=== PATIENT | female | born 1990 | race Caucasian/White ===

== ENCOUNTER → 2016-10-29 | Outpatient (CLI) | payer MEDICAID ==
[~2016-10-29] MED LIST: ACHD5005 PO; BIRTH CONTROL PO; CEFD300C3 PO; CEPH250T PO; CEPH500C PO; CPR500T PO; FRS325T PO; HYDR-3454 PO; HYDR-3583 PO; HYDR-3720 PO; HYDR1CAP2 PO; HYDR1TAB8 OP; HYDR25CA92 GT; IBP600T1 PO; IBP800T PO; IBUP-1780 PO; KETO-22 PO; LEVO500T69 PO; MEDR150V4 INJ; NITR-65 PO; NITR100C PO; ONDAN4ODT PO; ONDN4T PO; OXYC-12 PO; PHEN100T26 PO; PREN1TAB14 PO; PREN1TAB39 PO; PRM25T; PRM25T PO; PROM25SU10 RC; TMSL.4C PO
--- NOTE | 2016-10-29 16:02 | Diagnostic Imaging Report ---
PROCEDURE: US Thyroid. TECHNIQUE: Multiple real-time grayscale images were obtained of the thyroid in various projections. INDICATION: Abnormal thyroid labs. FINDINGS: The right thyroid lobe measured 4.6 x 1.2 x 1.5 cm. It contains a solid hypoechoic vascularized nodule at the junction of its nyg-je-dwvht one-thirds measuring 8 mm long axis. A tiny hypoechoic nodule in its lower pole measured 4 mm. The left lobe measured 5.5 x 1.0 x 1.3 cm and it appeared nonfocal. Color Doppler blood flow to both lobes and the isthmus is unremarkable. IMPRESSION: Right lobe nodule at its middle one-third measuring 8 mm long axis. It is solid, vascularized, and hypoechoic. It is not particularly well defined and would suggest followup exam in six months' time to exclude enlargement. An additional benign-appearing nodule in its lower pole at 4 mm noted with negative left lobe. Dictated by: Dictated on workstation # [id number]
== END ==
LOC: RAD 14:11
PROVIDERS: ATTEND Family Medicine
DX: E04.1 Nontoxic single thyroid nodule (principal); R94.6 Abnormal results of thyroid function studies
CPT/HCPCS: 76536

== ENCOUNTER → 2018-03-06 | Outpatient (CLI) | payer MEDICAID ==
--- NOTE | 2018-03-06 09:21 | Diagnostic Imaging Report ---
PROCEDURE: US Thyroid. TECHNIQUE: Multiple real-time grayscale images were obtained of the thyroid in various projections. INDICATION: Thyroid nodules, followup. Comparison is made with prior thyroid ultrasound from 10/29/2016. FINDINGS: Right lobe of thyroid measures 4.9 x 1.6 x 1.4 cm and the left lobe measures 5.2 x 1.1 x 1.5 cm. Left lobe shows normal homogeneous echotexture without evidence of a discrete mass. There are 2 circumscribed hyperechoic nodules in the right lobe of the thyroid. Nodule in the midportion measures approximately 7 mm x 8 mm x 4 mm, stable. A nodule in the inferior aspect of the right lobe measures 4 mm x 4 mm x 3 mm, stable. No new mass is seen. IMPRESSION: Stable subcentimeter nodules right lobe of the thyroid when compared with examination from 10/29/2016. Dictated by: Dictated on workstation # [id number]
== END ==
LOC: RAD 08:21
PROVIDERS: ATTEND Nurse Practitioner Family
DX: E04.2 Nontoxic multinodular goiter (principal)
CPT/HCPCS: 76536

== ENCOUNTER 2019-03-15 15:14 | Emergency (ER) | payer MEDICAID ==
[~2019-03-15] VITALS: Ht 175 cm; Wt 73.0 kg
--- NOTE | 2019-03-15 15:48 | Diagnostic Imaging Report ---
INDICATION: Left wrist injury. COMPARISON: None. EXAMINATION: Four views of the left wrist were obtained. FINDINGS: No fracture or dislocation. Articular surfaces are normal. No foreign body is seen. IMPRESSION: Negative left wrist. Dictated by: Dictated on workstation # [id number]
--- NOTE | 2019-03-15 15:49 | ED Upper Extremity ---
General Chief Complaint: Upper Extremity Stated Complaint: FALL/L WRIST INJ Nursing Triage Note: PT STATES FELL BACKWARDS AND FELL ON L WRIST, Nursing Sepsis Screen: No Definite Risk Source: patient Exam Limitations: no limitations History of Present Illness Date Seen by Provider: Mar 15, 2019 Time Seen by Provider: 15:48 Initial Comments Fell backwards on the left wrist Onset: just prior to arrival Severity: moderate Pain/Injury Location: left wrist Method of Injury: fell Modifying Factors: Worse With Movement Allergies and Home Medications Allergies Coded Allergies: No Known Drug Allergies (Unverified , 10/27/12) Home Medications Cefdinir 300 Mg Capsule, 300 MG PO BID Prescribed by: ANALIA XAVIER on 05/10/16 1125 Ibuprofen 800 Mg Tablet, 800 MG PO Q8H PRN for PAIN Prescribed by: ANALIA XAVIER on 05/10/16 1126 Medroxyprogesterone Acetate 150 Mg/1 Ml Vial, 150 MG INJ EVERY 3 MONTHS, (Re ported) Patient Home Medication List Home Medication List Reviewed: Yes Review of Systems Constitutional: see HPI EENTM: see HPI Respiratory: no symptoms reported Cardiovascular: no symptoms reported Genitourinary: no symptoms reported Musculoskeletal: see HPI Skin: no symptoms reported Psychiatric/Neurological: No Symptoms Reported Past Qsnrqia-Qlrgec-Bskuvc Hx Patient Social History Alcohol Use: Denies Use Recreational Drug Use: No Smoking Status: Current Everyday Smoker Type Used: Cigarettes Recent Foreign Travel: No Contact w/Someone Who Travel: No Recent Infectious Disease Expo: No Recent Hopitalizations: No Physical Abuse: No Sexual Abuse: No Seasonal Allergies Seasonal Allergies: No Past Medical History Surgeries: Yes (KIDNEY STONES) Adenoidectomy, Section, Gallbladder, Tonsillectomy Respiratory: No Cardiac: No Neurological: No : No Last Menstrual Period: Mar 15, 2019 Reproductive Disorders: No Sexually Transmitted Disease: No Gastrointestinal: No Musculoskeletal: No Endocrine: No Cancer: No Psychosocial: No Integumentary: No Blood Disorders: No Adverse Reaction/Blood Tranf: No Family Medical History Blood coagulation disorder 19 MOTHER Diabetes mellitus 19 MOTHER FH: liver cancer GRANDFATHER Physical Exam Vital Signs Vital Signs - First Documented 03/15/19 15:19 Temp 36.6 Pulse 69 Resp 18 B/P (MAP) 70/40 (50) Pulse Ox 99 Capillary Refill : Less Than 3 Seconds Height, Weight, BMI Height: 5'9.00" Weight: 157lbs. 0.0oz. [id number]; 23.00 BMI Method:Stated General Appearance: WD/WN, no apparent distress Neck: non-tender, full range of motion Respiratory: no respiratory distress, no accessory muscle use Shoulder: normal inspection, non-tender Elbow/Forearm: normal inspection, non-tender, Left Wrist: Yes swelling (over the dorsal aspect of the wrist radial side) Hand: normal inspection, non-tender Neurologic/Psychiatric: alert, normal mood/affect, oriented x 3 Skin: normal color, warm/dry Progress/Results/Core Measures Results/Orders Vital Signs/I&O 03/15/19 15:19 Temp 36.6 Pulse 69 Resp 18 B/P (MAP) 70/40 (50) Pulse Ox 99 Blood Pressure Mean: 50 POS Departure Impression Primary Impression: Wrist sprain Qualified Codes: S63.502A - Unspecified sprain of left wrist, initial encounter Disposition: 01 HOME, SELF-CARE Condition: Stable Departure-Patient Inst. Decision time for Depature: 16:04 Referrals: ANALIA XAVIER DO (PCP/Family) Primary Care Physician Patient Instructions: Wrist Sprain (DC) Add. Discharge Instructions: 1. Your x-rays are normal meaning we do not see a fracture but given the swelling that is visualized here there may certainly be a fracture that we are just not seeing. The pain doesn't improve by the end of the week follow-up with Dr. XAVIER towards the end of the week to discuss further imaging which may include MRI. All discharge instructions reviewed with patient and/or family. Voiced understanding. Scripts Hydrocodone/Acetaminophen ([place] 5-325 Tablet) 1 Each Tablet 1 TAB PO Q6H for Pain MDD 10 TABS for 7 Days, #10 TAB Prov: ASHTYN JOYNER PATRON ATTENDANT 03/15/19 ASHTYN JOYNER PATRON ATTENDANT Mar 15, 2019 15:48 POS
[2019-03-15] MEDS ORDERED: HYDR-4226 PO (16:05)
[2019-03-15 16:15] VITALS: BP 70/40
[2019-03-15] MEDS ORDERED: RX-HYDROCODONE/APAP 5/325 MG #4 TAB PK PO PRN (16:15)
== END 2019-03-15 16:14 | disposition home or self-care (01) ==
LOC: EDUNIT# 15:14 → ER 15:15
DX: S63.502A Unspecified sprain of left wrist, initial encounter (principal); F17.210 Nicotine dependence, cigarettes, uncomplicated; Z90.89 Acquired absence of other organs; Z80.0 Family history of malignant neoplasm of digestive organs; W19.XXXA Unspecified fall, initial encounter
CPT/HCPCS: 73110

== ENCOUNTER → 2019-11-25 | Outpatient (CLI) | payer MEDICAID ==
[~2019-11-25] MED LIST changes: +HYDR-4226 PO
--- NOTE | 2019-11-25 16:08 | Diagnostic Imaging Report ---
INDICATION: Bilateral breast lumps. COMPARISON: Correlation is made with diagnostic mammogram of earlier the same day. EXAMINATION: Sonographic interrogation of the areas of palpable abnormality in the upper-outer breasts, bilaterally, was performed. There is a small cyst at the 9:30 location of the right breast, 5 cm from the nipple, measuring 8 mm x 4 mm x 4 mm. This could potentially account for the palpable abnormality on the right. No abnormality on the left is identified. No solid or cystic mass is seen. IMPRESSION: Simple cyst right breast, perhaps accounting for palpable abnormality. No abnormality of the left breast is identified. Continued close clinical and self breast exam is recommended to confirm stability of the areas of palpable abnormality. ACR BI-RADS Category 2: Benign findings. Result letter will be mailed to the patient. Note: At least 10% of breast cancer is not imaged by mammography. Dictated by: Dictated on workstation # [id number]
--- NOTE | 2019-11-25 17:38 | Diagnostic Imaging Report ---
INDICATION: Bilateral palpable lumps. COMPARISON: No prior study is available for comparison. EXAMINATION: 2D and 3D bilateral diagnostic mammography was performed with CAD. FINDINGS: Both breasts are heterogeneously dense, limiting sensitivity of mammography. BB markers were placed at the areas of palpable abnormality in the upper outer aspects of both breasts. No underlying mass is detected. No malignant appearing microcalcifications are seen. The axillae are unremarkable. IMPRESSION: No mammographic features suspicious for malignancy. Even so, directed sonographic interrogation of the areas of palpable abnormality is recommended and will be performed today. ACR BI-RADS Category 0: Incomplete. (Needs additional imaging evaluation). Result letter will be mailed to the patient. Note: At least 10% of breast cancer is not imaged by mammography. Dictated by: Dictated on workstation # [id number]
== END ==
LOC: RAD 14:02
PROVIDERS: ATTEND Nurse Practitioner Family
DX: N63.20 Unspecified lump in the left breast, unspecified quadrant (principal); N63.10 Unspecified lump in the right breast, unspecified quadrant
CPT/HCPCS: 77062; 77066

== ENCOUNTER 2019-12-11 21:05 | Emergency (ER) | payer MEDICAID ==
[~2019-12-11] VITALS: Ht 175 cm; Wt 73.0 kg
[2019-12-11] MEDS ORDERED: LACTATED RINGERS 1,000 ML IV ONE (21:27)
[2019-12-11] MEDS ORDERED: PROMETHAZINE INJ 25 MG/ML (PHENERGAN) AMP IVP ONE (21:30)
[2019-12-11 21:40] LABS: BILIRUBIN,URINE NEGATIVE (NEGATIVE); CLARITY,URINE CLEAR; COLOR,URINE YELLOW; GLUCOSE, URINE (UA) NEGATIVE (NEGATIVE); KETONES,URINE 2+ (NEGATIVE); LEUKOCYTE ESTERASE ,URINE 1+ (NEGATIVE); NITRITE,URINE POSITIVE (NEGATIVE); PH,URINE 6.5 (5-9); PROTEIN,URINE 1+ (NEGATIVE)
[2019-12-11 21:40] LABS: BASOPHILS % (AUTO) 0 % (0-10); EOSINOPHILS % (AUTO) 0 % (0-10); HEMATOCRIT 43 % (35-52); HEMOGLOBIN 14.9 G/DL (11.5-16.0); LYMPHOCYTES % (AUTO) 15 % (12-44); MEAN CORPUSCULAR HEMOGLOBIN 31 PG (25-34); MEAN CORPUSCULAR HGB CONC 35 G/DL (32-36); MEAN CORPUSCULAR VOLUME 90 FL (80-99); MEAN PLATELET VOLUME 11.3 FL (7.4-10.4); MONOCYTES % (AUTO) 7 % (0-12); NEUTROPHILS # (AUTO) 10.6 X 10^3 (1.8-7.8); NEUTROPHILS % (AUTO) 78 % (42-75); PLATELET COUNT 230 10^3/uL (130-400); RED CELL DISTRIBUTION WIDTH 13.9 % (10.0-14.5); WHITE BLOOD COUNT 13.6 10^3/uL (4.3-11.0)
[2019-12-11 21:48] LABS: WBC,URINE 25-50 /HPF
[2019-12-11 21:49] LABS: BACTERIA,URINE MODERATE /HPF
[2019-12-11 21:54] LABS: ALANINE AMINOTRANSFERASE 31 U/L (0-55); ALBUMIN 4.7 GM/DL (3.2-4.5); ALKALINE PHOSPHATASE 58 U/L (40-136); BILIRUBIN,TOTAL 0.8 MG/DL (0.1-1.0); BUN/CREATININE RATIO 15; CALCIUM 10.2 MG/DL (8.5-10.1); CARBON DIOXIDE 19 MMOL/L (21-32); CHLORIDE 106 MMOL/L (98-107); CREATININE SERUM 0.66 MG/DL (0.60-1.30); GFR ESTIMATED > 60; GLUCOSE 106 MG/DL (70-105); MAGNESIUM 2.6 MG/DL (1.6-2.4); SODIUM 139 MMOL/L (135-145); TOTAL PROTEIN 7.9 GM/DL (6.4-8.2)
--- OUTSIDE RECORDS SUMMARY | 2019-12-11 21:55 | XMS REPORT | CCD ---
Author Author Brenda Talamantes D.O. Organization [facility] Address [address] [place] [address] Phone Care Team Providers Care Pharmaceutical Engineer Name Role Phone Josefa Talamantes D.O., PP Unavailable CCM Unavailable Summary Purpose Interface Exchange Insurance Providers Payer name Policy type / Coverage type Covered green party ID Effective Begin Date Effective End Date [employer] [facility] Commercial Insurance [id number] Unknown Family History Family History data not found Social History Social History Element Codes Description Effective Dates Tobacco history SNOMED CT: [id number] Unknown if ever smoked 01/12 Allergies, Adverse Reactions, Alerts Substance Reaction Codes Entered Date Inactivated Date Status * NO KNOWN FOOD ALLERGIES Unknown 03/08/2010 No Inactiv e Date Active * NO KNOWN ENVIRONMENTAL ALLERGIES Unknown 03/08/2010 N o Inactive Date Active Problems Condition Codes Effective Dates Condition Status Unknown 12/01/2019 Active Abnormal Pap smear of cervix ICD-9: 795.00 ICD-10: R87.619 12/01/2019 Active Amenorrhea ICD-9: 626.0 ICD-10: N91.2 12/01/2019 Active Nausea ICD-10: R11.0 12/01/2019 Active ICD-9: V22.2 ICD-10: Z34.90 12/01/2019 Active related nausea, antepartum ICD-9: 643.03 ICD-10: O26.899 12/01/2019 Active Irregular menstruation, unspecified ICD-9: 626.2 ICD-10: N92.6 11/26/2017 Active Vaginitis ICD-9: 616.10 ICD-10: N76.0 11/16/2019 Active Bilateral lower extremity edema ICD-9: 782.3 ICD-10: R60.0 11/16/2019 Active control counseling ICD-9: V25.09 ICD-10: Z30.09 11/16/2019 Active Dense breast tissue ICD-9: 793.82 ICD-10: R92.2 11/16/2019 Active Encounter for general adult medical examination withou t abnormal findings ICD-9: V70.9 ICD-10: Z00.00 10/18/2016 Active Encounter for gynecological examination (general) (routine) with abnormal findings ICD-9: V72.31 ICD-10: Z01.411 11/16/2019 Active Left breast mass ICD-9: 611.72 ICD-10: N63.20 11/16/2019 Active History of renal stone ICD-9: V13.01 ICD-10: Z87.442 07/07/2019 Active Urethritis ICD-9: 597.80 ICD-10: N34.2 07/07/2019 Active Urinary tract infection ICD-9: 599.0 ICD-10: N39.0 02/16/2019 Active Dysuria ICD-9: 788.1 ICD-10: R30.0 06/06/2017 Active Pelvic pain in female ICD-9: 625.9 ICD-10: R10.2 06/05/2019 Active Left wrist pain ICD-9: 719.43 ICD-10: M25.532 03/16/2019 Active Swelling of left upper extremity ICD-9: 729.81 ICD-10: M79.89 03/16/2019 Active Diseases of lips ICD-9: 528.5 ICD-10: K13.0 03/03/2018 Active Irregular menstruation, unspecified ICD-9: 626.4 ICD-10: N92.6 09/15/2013 Active Nontoxic single thyroid nodule ICD-9: 241.0 ICD-10: E04.1 03/03/2018 Active Abnormal results of thyroid function studies ICD-9: 79 4.5 ICD-10: R94.6 10/22/2016 Active Dysphagia, pharyngeal phase ICD-9: 787.23 ICD-10: R13.13 10/18/2016 Active Encounter for gynecological examination (general) (routine) without abnormal findings ICD-9: V72.31 ICD-10: Z01.419 10/18/2016 Active Gastro-esophageal reflux disease without esophagitis I CD-9: 530.81 ICD-10: K21.9 10/18/2016 Active Fever, unspecified ICD-9: 780.60 ICD-10: R50.9 08/08/2016 Active Influenza due to identified novel influe nza A virus with other respiratory manifestations ICD-9: 488.02 ICD-10: J09.X2 08/08/2016 Active Right upper quadrant pain ICD-9: 789.01 ICD-10: R10.11 12/10/2013 Active Unspecified abdominal pain ICD-9: 789.09 ICD-10: R10.9 05/14/2016 Active Cutaneous abscess of buttock ICD-9: 682.5 ICD-10: L02.31 12/22/2015 Active SINUSITIS, ACUTE ICD-9: 461.9 01/25/2015 Active General counseling and advice on contraceptive management IC D-9: V25.09 06/16/2014 Active Right upper quadrant pain ICD-9: 789.01 12/10/2013 Active Anxiety and depression ICD-9: 300.4 10/20/2013 Active Menorrhagia ICD-9: 626.2 10/07/2013 Active IRREGULAR MENSTRUATION ICD-9: 626.4 09/15/2013 Active HEMATURIA NOS ICD-9: 599.70 06/24/2013 Active ABDOMINAL PAIN ICD-9: 789.00 03/05/2013 Active GERD ICD-9: 530.81 03/05/2013 Active Renal calculi Unknown 09/08/2010 Active NAUSEA ALONE ICD-9: 787.02 09/08/2010 Active URINARY TRACT INFECTION ICD-9: 599.0 07/24/2010 Active *Denies any medical problems Unknown 03/08/2010 Act lilia PLANTAR WART ICD-9: 078.12 03/08/2010 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 03/08/2010 Active Medications Medication Codes Instructions Start Date Stop Date Status Fill Instructions Diclegis 10 mg-10 mg tablet,delayed release RxNorm: 1315686 2 Tablet(s) Oral QPM 12/01/2019 12/01/2019 Inactive vitamin E 400 unit capsule RxNorm: 547903 1 Capsule(s) Oral QD 11/10 No Stop Date Active metronidazole 500 mg tablet RxNorm: 986285 1 Tablet(s) Oral two times a day 11/17/2019 11/16/2019 Inactive metronidazole 500 mg tablet RxNorm: 604950 1 Tablet(s) Oral two times a day 11/17/2019 11/24/2019 Inactive Depo-Provera 150 mg/mL intramuscular suspension RxNorm: 1000 128 1 Application Intramuscular 11/16/2019 No Stop Date Active Diflucan 100 mg tablet RxNorm: 414636 1 Tablet(s) Oral QD 07/07/2019 07/14/2019 Inactive Flomax 0.4 mg capsule RxNorm: 987321 1 Capsule(s) Oral QPM for kidney stone 07/07/2019 08/06/2019 Inactive nystatin 100,000 unit/gram topical cream RxNorm: 165226 Application Topical two times a day to periurethral area 07/07/2019 11/16/2019 Inactive Bactrim DS 800 mg-160 mg tablet RxNorm: 804713 1 Tablet(s) Oral two times a day 06/08/2019 06/13/2019 Inactive Bactrim DS 800 mg-160 mg tablet RxNorm: 787225 1 Tablet(s) Oral two times a day 06/08/2019 06/07/2019 Inactive ibuprofen 800 mg tablet RxNorm: 076272 1 Tablet(s) Oral Q8H as needed 03/16/2019 06/05/2019 Inactive Cipro 500 mg tablet RxNorm: 231106 1 Tablet(s) Oral two times a day 03/04/2019 03/11/2019 Inactive Cipro 500 mg tablet RxNorm: 149303 1 Tablet(s) Oral two times a day 03/04/2019 03/03/2019 Inactive Macrobid 100 mg capsule RxNorm: 873925 1 Capsule(s) Oral two ti mes a day 02/16/2019 02/15/2019 Inactive Macrobid 100 mg capsule RxNorm: 421977 1 Capsule(s) Oral two ti mes a day 02/16/2019 02/23/2019 Inactive Depo-Provera 150 mg/mL intramuscular suspension RxNorm: 1000 128 Milliliter(s) Milliliter(s) 1 Milliliter(s) IM 03/03/2018 11/16/2019 Inactive Depo-Provera 150 mg/mL intramuscular suspension RxNorm: 1000 128 Milliliter(s) 1 Milliliter(s) IM 11/25/2017 11/16/2019 Inactive Depo-Provera 150 mg/mL intramuscular suspension RxNorm: 1000 128 Milliliter(s) 1 Milliliter(s) IM 11/25/2017 03/02/2018 Inactive Depo-Provera 150 mg/mL intramuscular suspension RxNorm: 1000 128 Milliliter(s) 1 Milliliter(s) IM 06/05/2017 11/24/2017 Inactive Pepcid 40 mg tablet RxNorm: 344865 1 Tablet(s) PO QD 10/18/201603/02 Inactive Depo-Provera 150 mg/mL intramuscular suspension RxNorm: 1000 128 Milliliter(s) 1 Milliliter(s) IM 10/10/2016 06/04/2017 Inactive Tamiflu 75 mg capsule RxNorm: 551167 1 Capsule(s) PO BID 08/08/2016 0 08/12/2016 Inactive Levsin 0.125 mg tablet RxNorm: 6159193 1 Tablet(s) PO TID for fl ank pain 05/15/2016 10/17/2016 Inactive Bactrim DS 800 mg-160 mg tablet RxNorm: 380652 1 Tablet(s) PO BID 0 12/23/2015 01/01/2016 Inactive mupirocin 2 % topical ointment RxNorm: 333771 Application TOP TID 0 12/23/2015 12/29/2015 Inactive Depo-Provera 150 mg/mL intramuscular suspension RxNorm: 1000 128 Milliliter(s) 1 Milliliter(s) IM 11/08/2015 10/09/2016 Inactive Xanax 0.25 mg tablet RxNorm: 101327 TAKE ONE-HALF TO ON E TABLET BY MOUTH NEEDED FOR ANXIETY 04/11/2015 05/10/2015 Inactive Generic For:X ANAX 0.25 MG TABLET 04/11/2015 2:54:57 PM Depo-Provera 150 mg/mL intramuscular suspension RxNorm: 1000 128 Milliliter(s) 1 Milliliter(s) IM 02/15/2015 11/07/2015 Inactive azithromycin 250 mg tablet RxNorm: 493174 2 Tablet(s) P O today, then one tablet on days 2 - 5 01/26/2015 12/22/2015 Inactive Medrol (Jhonathan) 4 mg tablets in a dose pack RxNorm: 110770 Tablet(s) P O 01/26/2015 12/22/2015 Inactive Depo-Provera 150 mg/mL intramuscular suspension RxNorm: 1000 128 1 Milliliter(s) IM 09/06/2014 02/15/2015 Inactive Xanax 0.25 mg tablet RxNorm: 029913 1/2 - 1 Tablet(s) PO as nee ded for anxiety 06/16/2014 04/12/2015 Inactive Zoloft 50 mg tablet RxNorm: 388244 1 Tablet(s) PO QD 06/16/201412/21 Inactive Flexeril 10mg tablet RxNorm: 1 Tablet(s) PO Q8H as neede d for muscle spasm 06/16/2014 10/17/2016 Inactive Depo-Provera 150 mg/mL intramuscular suspension RxNorm: 1000 128 1 Milliliter(s) IM 06/16/2014 09/05/2014 Inactive Flexeril 10mg tablet RxNorm: 1 Tablet(s) PO Q8H as neede d for muscle spasm 03/22/2014 06/15/2014 Inactive Flexeril 10mg tablet RxNorm: 1 Tablet(s) PO Q8H as neede d for muscle spasm 01/28/2014 2014 Inactive Xanax 0.25 mg tablet RxNorm: 960475 1/2 - 1 Tablet(s) PO as nee ded for anxiety 01/28/2014 06/15/2014 Inactive naproxen 500 mg tablet RxNorm: 495375 1 Tablet(s) PO BID 12/10/2013 0 01/08/2014 Inactive Zoloft 50 mg tablet RxNorm: 319503 1 Tablet(s) PO QD 12/10/201304/08 Inactive Xanax 0.25 mg tablet RxNorm: 474980 1/2 - 1 Tablet(s) PO as nee ded for anxiety 12/10/2013 01/27/2014 Inactive Xanax 0.25 mg tablet RxNorm: 222700 1 Tablet(s) PO Q8H 10/20/2013 Inactive Zoloft 50 mg tablet RxNorm: 300593 1/2 Tablet(s) PO x 6 days then on1 tablet daily 10/20/2013 11/18/2013 Inactive Loestrin Fe 06/01 (28) 1 mg-20 mcg tablet RxNorm: 4155889 1 Table t(s) PO QD 10/20/2013 05/03/2014 Inactive phenazopyridine 100 mg tablet RxNorm: 9120639 1 Tablet(s) PO Q8H 06/26/2013 Inactive Macrobid 100 mg capsule RxNorm: 420565 1 Capsule(s) PO BID 06/25/19 14 07/04/2013 Inactive phenazopyridine 100 mg tablet RxNorm: 7106467 1 Tablet(s) PO Q8H 06/24/2013 Inactive Macrobid 100 mg capsule RxNorm: 434128 1 Capsule(s) PO BID 07/25/19 11 08/02/2010 Inactive Apri 0.15 mg-30 mcg tablet RxNorm: 320464 1 Tablet(s) PO QD As directed. No Start Date 06/23/2013 Inactive omeprazole 40 mg capsule,delayed release RxNorm: 527293 1 Capsule(s) PO QD for stomach No Start Date 06/23/2013 Inactive naproxen 500 mg tablet RxNorm: 671934 1 Tablet(s) PO BID No Start D ate 06/15/2014 Inactive hydrocodone 10 mg-acetaminophen 325 mg tablet RxNorm: 747643 Tablet(s) PO as needed for pain No Start Date 12/22/2015 Inactive Zoloft 50 mg tablet RxNorm: 742351 1 Tablet(s) PO QD No Start Date Inactive hydrocodone 5 mg-acetaminophen 325 mg tablet RxNorm: 265502 1 Tablet(s) PO QID as needed for pain No Start Date 09/14/2013 Inactive Medication Administered No Medication Administered data Immunizations No Immunization data Results Observation Observation Code Item Item Code Result Date S ervice Location [facility] [id number] Whiff TNP:Duplicate Order 11/17/19 20 Unknown [facility] [id number] WBC Vaginal TNP:Duplicate Order 2019 Unknown [facility] [id number] [employer] Lactobac TNP:Duplicate Order 2019 Unknown [facility] [id number] Clue Cells TNP:Duplicate Order 020 Unknown [facility] [id number] [employer] Curved GNR TNP:Duplicate Order 11/2019 Unknown [facility] [id number] Yeast Vaginal TNP:Duplicate Order 11/2019 Unknown V PROF SW[facility] [id number] [employer] SM GVB TNP:Duplicate Order 11/17/19 20 Unknown V PROF SW[facility] [id number] [employer] Swb Trich Ag TNP:Duplicate Order Unknown V PROF SWB [id number] [employer] BV Stain TNP:Duplicate Order 2019 Unknown V PROF SW[facility] [id number] [employer] Interp TNP:Duplicate Order 11/17/19 20 Unknown V PROF SW[facility] [id number] Conf BV Stain TNP:Duplicate Order 11/2019 Unknown V PROF SW[facility] [id number] Whiff Positive 11/17/2019 Unknown V PROF SW[facility] [id number] WBC Vaginal Few 11/17/2019 Unknow n V PROF SW[facility] [id number] Clue Cells >20% 11/17/2019 Unknown V PROF SW[facility] [id number] Yeast Vaginal None 11/17/2019 Unkn own V PROF SWB [id number] [employer] Swb Trich Ag Negative 11/17/2019 Un known V PROF SWB [id number] [employer] BV Stain 10 11/17/2019 Unknow n V PROF SWB [id number] [employer] Interp Results indicate Bacteria l Vaginosis Syndrome. 11/17/2019 Unknown VAG PROF [id number] PH TNP:Improper Specimen 020 Unknown [facility] PROF [id number] Whiff TNP:Improper Specimen 020 Unknown [facility] PROF [id number] WBC Vaginal TNP:Improper Specimen 11/15 Unknown [facility] [id number] [employer] Lactobac TNP:Improper Specimen 11/15 Unknown V[facility] PROF [id number] Clue Cells TNP:Improper Specimen 2019 Unknown V[facility] PROF [id number] [employer] Curved GNR TNP:Improper Specimen 10/2019 Unknown V[facility] PROF [id number] Yeast Vaginal TNP:Improper Specimen 10/2019 Unknown V[facility] PROF [id number] [employer] SM GVB TNP:Improper Specimen 020 Unknown VAG PROF [id number] Trichomonas TNP:Improper Specimen 11/15 Unknown V[facility] PROF [id number] [employer] BV Stain TNP:Improper Specimen 11/15 Unknown VAG PROF [id number] [employer] Intp TNP:Improper Specimen 020 Unknown VAG PROF [id number] Conf BV Stain TNP:Improper Specimen 10/2019 Unknown LIPASE 64581 LIPASE 14 IU/L 01/28/2014 Unknown COMPLETE BLOOD COUNT [id number] WBC 6.5 10e9/L 01/29/20 14 Unknown COMPLETE BLOOD COUNT [id number] RBC 4.54 10e12/L 2013 Unknown COMPLETE BLOOD COUNT [id number] HGB 12.1 g/dL 4 Unknown COMPLETE BLOOD COUNT [id number] HCT DET 38.0 % 4 Unknown COMPLETE BLOOD COUNT 8155124 MCV 83.7 fL 4 Unknown COMPLETE BLOOD COUNT [id number] MCH 26.7 pg 4 Unknown COMPLETE BLOOD COUNT [id number] MCHC 31.8 g/dL 4 Unknown COMPLETE BLOOD COUNT 3102250 PLT 218 10e9/L 01/29/20 14 Unknown COMPLETE BLOOD COUNT [id number] MPV 12.8 fL 4 Unknown COMPLETE BLOOD COUNT [id number] RACHNA % 56.5 % 4 Unknown COMPLETE BLOOD COUNT 6996480 LY % 32.3 % 4 Unknown COMPLETE BLOOD COUNT [id number] MON % 8.6 % 4 Unknown COMPLETE BLOOD COUNT [id number] EOS % 2.1 % 4 Unknown COMPLETE BLOOD COUNT 0031005 BASO % 0.5 % 4 Unknown COMPLETE BLOOD COUNT [id number] RDW 18.4 % 4 Unknown COMPLETE BLOOD COUNT [id number] ABS RACHNA 3.67 10e9/L 014 Unknown COMPLETE BLOOD COUNT [id number] ABS LYMPH 2.10 10e9/L 014 Unknown COMPLETE BLOOD COUNT 7000988 ABS MONO 0.56 10e9/L 014 Unknown COMPLETE BLOOD COUNT [id number] ABS EOS 0.14 10e9/L 014 Unknown COMPLETE BLOOD COUNT [id number] ABS BASO 0.03 10e9/L 014 Unknown COMPLETE BLOOD COUNT 2488816 RDW-SD 55.5 fL 4 Unknown COMPREHENSIVE METABOLIC 11878 AST 13 U/L 2013 Unknown COMPREHENSIVE METABOLIC 39065 ALT 7 IU/L 2013 Unknown COMPREHENSIVE METABOLIC 86287 BUN 8 MG/DL 2013 Unknown COMPREHENSIVE METABOLIC 30662 ALBUMIN 4.5 GM/DL 2013 Unknown COMPREHENSIVE METABOLIC 54208 CHLORIDE 106 MMOL/L 01/28 Unknown COMPREHENSIVE METABOLIC 04529 BILI TOT 0.4 MG/DL 2013 Unknown COMPREHENSIVE METABOLIC 10541 ALK PHOS 55 U/L 2013 Unknown COMPREHENSIVE METABOLIC 08929 SODIUM 138 MMOL/L 01/28 Unknown COMPREHENSIVE METABOLIC 54101 CREATININE 0.73 MG/DL 01/11 Unknown COMPREHENSIVE METABOLIC 09252 CALCIUM 9.9 MG/DL 2013 Unknown COMPREHENSIVE METABOLIC 25724 POTASSIUM 3.8 MMOL/L 01/28 Unknown COMPREHENSIVE METABOLIC 44586 PROT TOT 7.4 GM/DL 2013 Unknown COMPREHENSIVE METABOLIC 82845 Glucose 96 MG/DL 2013 Unknown COMPREHENSIVE METABOLIC 40003 BICARB 27 MMOL/L 2013 Unknown COMPREHENSIVE METABOLIC 82884 ANION GAP 5 MEQ/L 2013 Unknown AMYLASE 60650 AMYLASE 42 IU/L 01/28/2014 Unknown GFR CALC [id number] GFR AA >60 ML/MIN 01/28/2014 Unknown GFR CALC [id number] GFR NON-AA >60 ML/MIN 01/28/2014 Unknown Procedures Procedure Codes Date URINE TEST CPT-4: 51590 12/01/2019 THER/PROPH/DIAG INJ SC/IM CPT-4: 34996 11/19/2019 URINE TEST CPT-4: 55752 11/16/2019 SPECIMEN HANDLING OFFICE-LAB CPT-4: 85416 11/16/2019 URINE CULTURE/ COLONY COUNT CPT-4: 73431 06/15/2019 URINALYSIS NONAUTO W/O SCOPE CPT-4: 78794 06/05/2019 CEFTRIAXONE SODIUM INJECTION CPT-4: J0696 06/05/2019 THER/PROPH/DIAG INJ SC/IM CPT-4: 73251 06/05/2019 URINE CULTURE/ COLONY COUNT CPT-4: 55973 06/05/2019 URINE CULTURE/ COLONY COUNT CPT-4: 09550 03/02/2019 THER/PROPH/DIAG INJ SC/IM CPT-4: 22705 02/16/2019 URINE CULTURE/ COLONY COUNT CPT-4: 92468 02/16/2019 URINALYSIS NONAUTO W/O SCOPE CPT-4: 07085 02/16/2019 URINE TEST CPT-4: 83733 02/16/2019 THER/PROPH/DIAG INJ SC/IM CPT-4: 91417 05/21/2018 THER/PROPH/DIAG INJ SC/IM CPT-4: 97464 11/26/2017 THER/PROPH/DIAG INJ SC/IM CPT-4: 00400 08/27/2017 THER/PROPH/DIAG INJ SC/IM CPT-4: 97926 06/06/2017 URINALYSIS NONAUTO W/O SCOPE CPT-4: 97539 06/06/2017 GC/CHLAMYDIA DNA ([facility]) CPT-4: 12962|67341 8 URINE CULTURE/ COLONY COUNT CPT-4: 37532 06/06/2017 THER/PROPH/DIAG INJ SC/IM CPT-4: 36750 01/04/2017 SPECIMEN HANDLING OFFICE-LAB CPT-4: 18946 10/18/2016 THER/PROPH/DIAG INJ SC/IM CPT-4: 58400 10/12/2016 INFLUENZA ASSAY W/OPTIC CPT-4: 67877 08/08/2016 THER/PROPH/DIAG INJ SC/IM CPT-4: 96216 07/25/2016 THER/PROPH/DIAG INJ SC/IM CPT-4: 55980 05/03/2016 THER/PROPH/DIAG INJ SC/IM CPT-4: 70287 02/20/2016 URINE TEST CPT-4: 96908 02/20/2016 AEROBIC WOUND CULTURE & STN CPT-4: 53895 12/23/2015 THER/PROPH/DIAG INJ SC/IM CPT-4: 83233 11/07/2015 URINE TEST CPT-4: 59414 11/07/2015 THER/PROPH/DIAG INJ SC/IM CPT-4: 77163 08/01/2015 THER/PROPH/DIAG INJ SC/IM CPT-4: 31772 05/11/2015 THER/PROPH/DIAG INJ SC/IM CPT-4: 69715 02/16/2015 THER/PROPH/DIAG INJ SC/IM CPT-4: 16104 11/29/2014 THER/PROPH/DIAG INJ SC/IM CPT-4: 73066 09/09/2014 URINE TEST CPT-4: 56989 06/16/2014 THER/PROPH/DIAG INJ SC/IM CPT-4: 81985 06/16/2014 ROUTINE VENIPUNCTURE CPT-4: 80508 10/07/2013 COMPLETE CBC W/AUTO DIFF WBC CPT-4: 23197 10/07/2013 CHORIONIC GONADOTROPIN TEST CPT-4: 61319 10/07/2013 URINE TEST CPT-4: 46142 09/15/2013 URINALYSIS NONAUTO W/O SCOPE CPT-4: 94287 06/24/2013 URINE CULTURE/ COLONY COUNT CPT-4: 04154 06/24/2013 URINE TEST CPT-4: 57671 09/08/2010 URINALYSIS NONAUTO W/O SCOPE CPT-4: 75199 07/24/2010 URINE CULTURE/ COLONY COUNT CPT-4: 92628 07/24/2010 DESTRUCT PREMALG LESION (Cryosurgery) CPT-4: 36982 DESTRUCT PREMALG LES 2-14 CPT-4: 29982 03/08/2010 Vital Signs Date Vital 12/01/2019 Blood Pressure 1: 128/78 Code: 8480-6 Heart Rate 1: 80 bpm Respiratory Rate: 16 bpm SpO2: 98% Temperature: 36.7 (C) / 98.0 (F) We ight: 161 lbs 11/16/2019 Blood Pressure 1: 119/75 Code: 8480-6 BMI: 24.4 Code: 51941-6 Heart Rate 1: 112 bpm Height: 5'9" Respiratory Rate: 15 bpm SpO2: 98% Tempera ture: 36.8 (C) / 98.2 (F) Weight: 165 lbs 07/07/2019 Blood Pressure 1: 126/82 Code: 8480-6 Heart Rate 1: 100 bpm SpO2: 99% Temperature: 36.8 (C) / 98.2 (F) 06/05/2019 Blood Pressure 1: 131/82 Code: 8480-6 BMI: 26.3 Code: 89314-7 Heart Rate 1: 109 bpm Height: 5'9" Respiratory Rate: 16 bpm SpO2: 99% Tempera ture: 36.7 (C) / 98.1 (F) Weight: 178 lbs 03/16/2019 Blood Pressure 1: 132/86 Code: 8480-6 Heart Rate 1: 73 bpm SpO2: 99% Temperature: 36.6 (C) / 97.9 (F) Weight: 158 lbs 03/03/2018 Blood Pressure 1: 120/88 Code: 8480-6 BMI: 23.9 Code: 04620-8 Heart Rate 1: 81 bpm Height: 5'9" Respiratory Rate: 18 bpm SpO2: 99% Tempera ture: 36.1 (C) / 97.0 (F) Weight: 162 lbs 10/18/2016 Blood Pressure 1: 108/ Code: 8480-6 BMI: 22.6 Code: 54423-9 Heart Rate 1: 100 bpm Height: 5'9" Respiratory Rate: 20 bpm SpO2: 98% Tempera ture: 37.1 (C) / 98.8 (F) Weight: 153 lbs 08/08/2016 Blood Pressure 1: 114/ Code: 8480-6 Heart Rate 1: 102 bpm Respiratory Rate: 20 bpm SpO2: 98% Temperature: 36.4 (C) / 97.6 (F) We ight: 152 lbs 05/15/2016 Blood Pressure 1: 124/80 Code: 8480-6 BMI: 23.2 Code: 28801-4 Heart Rate 1: 100 bpm Height: 5'9" Respiratory Rate: 20 bpm Temperature: 37 .0 (C) / 98.6 (F) Weight: 157 lbs 12/23/2015 Blood Pressure 1: 124/78 Code: 8480-6 BMI: 23.0 Code: 93749-9 Heart Rate 1: 92 bpm Height: 5'9" Respiratory Rate: 20 bpm SpO2: 97% Tempera ture: 36.9 (C) / 98.5 (F) Weight: 156 lbs 01/26/2015 Blood Pressure 1: 118/78 Code: 8480-6 BMI: 21.3 Code: 38211-7 Heart Rate 1: 100 bpm Height: 5'9" Respiratory Rate: 20 bpm SpO2: 97% Tempera ture: 36.6 (C) / 97.8 (F) Weight: 144 lbs 06/16/2014 Blood Pressure 1: 118/78 Code: 8480-6 BMI: 23.5 Code: 58612-8 Heart Rate 1: 78 bpm Height: 5'9" Respiratory Rate: 18 bpm Temperature: 36 .1 (C) / 97.0 (F) Weight: 159 lbs 01/28/2014 Blood Pressure 1: 124/78 Code: 8480-6 BMI: 23.2 Code: 22977-8 Heart Rate 1: 88 bpm Height: 5'9" Respiratory Rate: 22 bpm Temperature: 36 .1 (C) / 97.0 (F) Weight: 157 lbs 12/10/2013 Blood Pressure 1: 124/70 Code: 8480-6 BMI: 23.0 Code: 18675-9 Heart Rate 1: 82 bpm Height: 5'9" Respiratory Rate: 20 bpm Temperature: 36 .2 (C) / 97.2 (F) Weight: 156 lbs 10/20/2013 Blood Pressure 1: 118/82 Code: 8480-6 Heart Rate 1: 84 bpm Respiratory Rate: 22 bpm Temperature: 36.5 (C) / 97.7 (F) Weight: 150 lbs 10/07/2013 Blood Pressure 1: 120/80 Code: 8480-6 BMI: 22.2 Code: 64732-0 Heart Rate 1: 68 bpm Height: 5'9" Respiratory Rate: 22 bpm Temperature: 36 .2 (C) / 97.2 (F) Weight: 150 lbs 09/15/2013 Blood Pressure 1: 118/68 Code: 8480-6 BMI: 22.0 Code: 00721-1 Heart Rate 1: 78 bpm Height: 5'9" Respiratory Rate: 20 bpm Temperature: 36 .1 (C) / 97.0 (F) Weight: 149 lbs 06/24/2013 Blood Pressure 1: 112/74 Code: 8480-6 Heart Rate 1: 74 bpm Respiratory Rate: 20 bpm Temperature: 36.6 (C) / 97.9 (F) Weight: 150 lbs 03/05/2013 Blood Pressure 1: 126/88 Code: 8480-6 BMI: 23.5 Code: 89901-1 Heart Rate 1: 80 bpm Height: 5'9" Respiratory Rate: 20 bpm Temperature: 36 .6 (C) / 97.9 (F) Weight: 159 lbs 02/09/2013 Blood Pressure 1: 110/68 Code: 8480-6 BMI: 21.9 Code: 47294-6 Heart Rate 1: 74 bpm Height: 5'9" Respiratory Rate: 22 bpm Temperature: 36 .8 (C) / 98.2 (F) Weight: 148 lbs 09/08/2010 Blood Pressure 1: 124/90 Code: 8480-6 BMI: 21.4 Code: 05576-3 Height: 5'10" Temperature: 36.4 (C) / 97.6 (F) Weight: 149 lbs 07/24/2010 Blood Pressure 1: 124/74 Code: 8480-6 Heart Rate 1: 92 bpm Temperature: 36.7 (C) / 98.1 (F) Weight: 150 lbs 03/08/2010 Blood Pressure 1: 112/70 Code: 8480-6 Heart Rate 1: 76 bpm Temperature: 36.2 (C) / 97.1 (F) Weight: 153 lbs Functional Status No Functional Status data Reason For Visit Reason For Visit Effective Dates Notes 12/01/2019 injection(s) 11/19/2019 well woman exam (18-39 years) 11/16/2019 painful urination 07/07/2019 painful urination 06/05/2019 wrist pain 03/16/2019 follow up 03/02/2019 repeat urine C&S for UTI injection(s) 02/16/2019 Depo Provera injection(s) 05/21/2018 depo shot menstrual irregularity 03/03/2018 injection(s) 11/26/2017 Depo Provera injection(s) 08/27/2017 depo provera injection(s) 06/06/2017 Depo-Provera injection(s) 01/04/2017 Depo Provera shot well woman exam (18-39 years) 10/18/2016 injection(s) 10/12/2016 Depo-Provera- last g iven 07/25/16 cough 08/08/2016 injection(s) 07/25/2016 Depo-Provera- Last g iven 05/03/17 follow up 05/15/2016 injection(s) 05/03/2016 Depo-Provera injection(s) 02/20/2016 Depo Provera shot--- last injection was 11/07/15 so patient has to have urine test done because past time frame cellulitis 12/23/2015 injection(s) 11/07/2015 Depo-Provera with ur ine Prengnancy injection(s) 08/01/2015 Depo-Provera injection(s) 05/11/2015 Depo Provera injection(s) 02/16/2015 Depo-Provera cough 01/26/2015 injection(s) 11/29/2014 Depo-Provera injection(s) 09/09/2014 Depo Provera menstrual irregularity 06/16/2014 patient would lik e to be on Depo-Provera rib pain 01/28/2014 sharp intermittent p ain is still ongoing for over a year follow up 12/10/2013 follow up 10/20/2013 patient had DC - las t Saturday menstrual irregularity 10/07/2013 menstrual irregularity 09/15/2013 rib pain 06/24/2013 right side abdominal pain 03/05/2013 ~generic 02/09/2013 Requesting different control nausea 09/08/2010 ~generic 07/24/2010 Was seen in ER on 06/04 for kidney stone. Was notified by letter that pt needed to f/u with provider due to abnormal labs. Labs from visit in chart, medical records to send office note. verruca 03/08/2010 to hands/feet, the o danika on the feet have become painful Encounters Encounter Performer Location Codes Date ([id number]) OFFICE/OUTPATIENT VISIT EST Diagnosis: Amenorrhea[ICD10: N91.2] Diagnosis: [ICD10: Z34.90] Diagnosis: Abnormal Pap smear of cervix[ICD10: R87.619] Diagnosis: Nausea[ICD10: R11.0] Diagnosis: related nausea, antepartum[ICD10: O26.899] Keyanna HELMS [facility] Teresa TierPMABNERStead[facility] CPT-4: 25733 12/01/2019 ([id number]) NURSE/OUTPATIENT VISIT EST Diagnosis: Irregular menstruation, unspecified[ICD10: N92.6] Josefa Connors TierPMMARCOS [employer] CPT-4: 29183 11/19/2019 ([id number]) PREV VISIT EST AGE 18-39 Diagnosis: Encounter for gynecological examination (general) (routine) with abnormal findings[ICD10: Z01.411] Diagnosis: Encounter for general adult medical examination without abnormal findings[ICD10: Z00.00] Diagnosis: Vaginitis[ICD10: N76.0] Diagnosis: Left breast mass[ICD10: N63.20] Diagnosis: Dense breast tissue[ICD10: R92.2] Diagnosis: Bilateral lower extremity edema[ICD10: R60.0] Diagnosis: control counseling[ICD10: Z30.09] Keyanna TALAMANTES [employer] CPT-4: 18198 11/16/2019 ([id number]) OFFICE/OUTPATIENT VISIT EST Diagnosis: Urethritis[ICD10: N34.2] Diagnosis: History of renal stone[ICD10: Z87.442] Josefa TALAMANTES DO [facility] CPT-4: 00800 07/07/2019 ([id number]) NURSE/OUTPATIENT VISIT EST Diagnosis: Urinary tract infection[ICD10: N39.0] Josefa TALAMANTES DO [facility] CPT-4: 82001 06/15/2019 ([id number]) OFFICE/OUTPATIENT VISIT EST Diagnosis: Dysuria[ICD10: R30.0] Diagnosis: Pelvic pain in female[ICD10: R10.2] Keyanna TALAMANTES DO [facility] CPT-4: 50873 06/05/2019 ([id number]) OFFICE/OUTPATIENT VISIT EST Diagnosis: Left wrist pain[ICD10: M25.532] Diagnosis: Swelling of left upper extremity[ICD10: M79.89] Keyanna TALAMANTES DO [facility] CPT-4: 05222 03/16/2019 ([id number]) NURSE/OUTPATIENT VISIT EST Diagnosis: Urinary tract infection[ICD10: N39.0] Josefa TALAMANTES DO [facility] CPT-4: 53956 03/02/2019 ([id number]) NURSE/OUTPATIENT VISIT EST Diagnosis: Irregular menstruation, unspecified[ICD10: N92.6] Diagnosis: Urinary tract infection[ICD10: N39.0] Josefa TALAMANTES DO [facility] CPT-4: 67280 02/16/2019 ([id number]) NURSE/OUTPATIENT VISIT EST Diagnosis: Irregular menstruation, unspecified[ICD10: N92.6] Josefa TALAMANTES DO [facility] CPT-4: 15974 05/21/2018 ([id number]) OFFICE/OUTPATIENT VISIT EST Diagnosis: Irregular menstruation, unspecified[ICD10: N92.6] Diagnosis: Diseases of lips[ICD10: K13.0] Diagnosis: 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] Keyanna TALAMANTES DO [facility] CPT-4: 32912 03/03/2018 ([id number]) NURSE/OUTPATIENT VISIT EST Diagnosis: Irregular menstruation, unspecified[ICD10: N92.6] Josefa TALAMANTES DO [facility] CPT-4: 48614 11/26/2017 ([id number]) OFFICE/OUTPATIENT VISIT EST Diagnosis: Irregular menstruation, unspecified[ICD10: N92.6] Josefa TALAMANTES DO [facility] CPT-4: 78367 08/27/2017 ([id number]) OFFICE/OUTPATIENT VISIT EST Diagnosis: Dysuria[ICD10: R30.0] Diagnosis: Irregular menstruation, unspecified[ICD10: N92.6] Josefa TALAMANTES DO [facility] CPT-4: 53888 06/06/2017 ([id number]) OFFICE/OUTPATIENT VISIT EST Diagnosis: Irregular menstruation, unspecified[ICD10: N92.6] Josefa TALAMANTES DO [facility] CPT-4: 76560 01/04/2017 ([id number]) PREV VISIT EST AGE 18-39 Diagnosis: Encounter for general adult medical examination without abnormal findings[ICD10: Z00.00] Diagnosis: Encounter for gynecological examination (general) (routine) without abnormal findings[ICD10: Z01.419] Diagnosis: Gastro-esophageal reflux disease without esophagitis[ICD10: K21.9] Diagnosis: Dysphagia, pharyngeal phase[ICD10: R13.13] Josefa TALAMANTES [employer] [facility] CPT-4: 59455 10/18/2016 ([id number]) OFFICE/OUTPATIENT VISIT EST Diagnosis: Irregular menstruation, unspecified[ICD10: N92.6] Josefa TALAMANTES DO [facility] CPT-4: 79460 10/12/2016 ([id number]) OFFICE/OUTPATIENT VISIT EST Diagnosis: Fever, unspecified[ICD10: R50.9] Diagnosis: Influenza due to identified novel influenza A virus with other respiratory manifestations[ICD10: J09.X2] Catrina Bran JOSEFA TALAMANTES DO [facility] CPT-4: 71296 08/08/2016 ([id number]) OFFICE/OUTPATIENT VISIT EST Diagnosis: Irregular menstruation, unspecified[ICD10: N92.6] Josefa TALAMANTES DO [facility] CPT-4: 18850 07/25/2016 ([id number]) OFFICE/OUTPATIENT VISIT EST Diagnosis: Right upper quadrant pain[ICD10: R10.11] Diagnosis: Unspecified abdominal pain[ICD10: R10.9] Josefa TALAMANTES DO [facility] CPT-4: 24756 05/15/2016 ([id number]) OFFICE/OUTPATIENT VISIT EST Diagnosis: Irregular menstruation, unspecified[ICD10: N92.6] Josefa TALAMANTES DO [facility] CPT-4: 31523 05/03/2016 ([id number]) OFFICE/OUTPATIENT VISIT EST Diagnosis: Irregular menstruation, unspecified[ICD10: N92.6] Josefa TALAMANTES DO [facility] CPT-4: 44863 02/20/2016 OFFICE/OUTPATIENT VISIT EST Diagnosis: Cutaneous abscess of buttock[ICD10: L02.31] Kitty Caldera JOSEFA TALAMANTES DO [facility] CPT-4: 99617 12/23/2015 ([id number]) OFFICE/OUTPATIENT VISIT EST Diagnosis: Irregular menstruation, unspecified[ICD10: N92.6] Josefa TALAMANTES DO [facility] CPT-4: 63119 11/07/2015 ([id number]) OFFICE/OUTPATIENT VISIT EST Diagnosis: Irregular menstruation, unspecified[ICD10: N92.6] Josefa TALAMANTES DO [facility] CPT-4: 23037 08/01/2015 ([id number]) OFFICE/OUTPATIENT VISIT EST Diagnosis: Irregular menstruation, unspecified[ICD10: N92.6] Josefa TALAMANTES DO [facility] CPT-4: 18202 05/11/2015 ([id number]) OFFICE/OUTPATIENT VISIT EST Diagnosis: Irregular menstruation, unspecified[ICD10: N92.6] Josefa TALAMANTES DO [facility] CPT-4: 92127 02/16/2015 OFFICE/OUTPATIENT VISIT EST Diagnosis: SINUSITIS, ACUTE[ICD9: 461.9] Malgorzata TALAMANTES DO [facility] CPT-4: 90879 01/26/2015 ([id number]) OFFICE/OUTPATIENT VISIT EST Diagnosis: IRREGULAR MENSTRUATION[ICD9: 626.4] Josefa TALAMANTES DO [facility] CPT-4: 34729 11/29/2014 ([id number]) OFFICE/OUTPATIENT VISIT EST Diagnosis: IRREGULAR MENSTRUATION[ICD9: 626.4] Josefa TALAMANTES DO [facility] CPT-4: 98892 09/09/2014 ([id number]) OFFICE/OUTPATIENT VISIT EST Diagnosis: IRREGULAR MENSTRUATION[ICD9: 626.4] Diagnosis: General counseling and advice on contraceptive management[ICD9: V25.09] Diagnosis: Anxiety and depression[ICD9: 300.4] Malgorzata ALANIZ SMaria Teresa TALAMANTES [facility] CPT-4: 72583 06/16/2014 OFFICE/OUTPATIENT VISIT EST Diagnosis: Right upper quadrant pain[ICD9: 789.01] Malgorzata TALAMANTES DO [facility] CPT-4: 03749 01/28/2014 OFFICE/OUTPATIENT VISIT EST Diagnosis: Right upper quadrant pain[ICD9: 789.01] Malgorzata [facility] CPT-4: 93854 12/10/2013 OFFICE/OUTPATIENT VISIT EST Diagnosis: Anxiety and depression[ICD9: 300.4] Malgorzata [facility]IZ [facility] CPT-4: 18809 10/20/2013 OFFICE/OUTPATIENT VISIT EST Diagnosis: Menorrhagia[ICD9: 626.2] Malgorzata [facility] CPT-4: 61793 10/07/2013 OFFICE/OUTPATIENT VISIT EST Diagnosis: IRREGULAR MENSTRUATION[ICD9: 626.4] Malgorzata ALANIZ SMaria Teresa [facility] CPT-4: 57230 09/15/2013 OFFICE/OUTPATIENT VISIT EST Diagnosis: HEMATURIA NOS[ICD9: 599.70] Diagnosis: Abdominal discomfort in right upper quadrant[ICD9: 789.01] Malgorzata TALAMANTES DO [employer] CPT-4: 33355 06/24/2013 ([id number]) OFFICE/OUTPATIENT VISIT EST Diagnosis: ABDOMINAL PAIN[ICD9: 789.00] Diagnosis: GERD[ICD9: 530.81] Josefa TALAMANTES DO [employer] CPT-4: 16521 03/05/2013 OFFICE/OUTPATIENT VISIT EST Diagnosis: General counseling and advice on contraceptive management[ICD9: V25.09] Diagnosis: IRREGULAR MENSTRUATION[ICD9: 626.4] Malgorzata TALAMANTES DO [employer] CPT-4: 21792 02/09/2013 ([id number]) OFFICE/OUTPATIENT VISIT EST Justine TALAMANTES DO [employer] CPT-4: 43838 09/08/2010 ([id number]) OFFICE/OUTPATIENT VISIT EST Justine TALAMANTES DO [employer] CPT-4: 38416 07/24/2010 Plan of Care Planned Activity Notes Codes Status Date Visit Diagnosis Plan: related nausea, antepa rtum Discussion: diclegis to be prescribed but insurance didn't want to cover so instructed on daily vitamin b6. ICD-9 : 643.03 ICD-10 : O26.899 12/01/2019 Visit Diagnosis Plan: Amenorrhea Discussion: positive test. ICD-9 : 626.0 ICD-10 : N91.2 12/01/2019 Visit Diagnosis Plan: Discussion: discussed with patient that there are no known effects of toxicity to fetus when depo shot was given early. patient's initial test was neg and then patient had positive test over the weekend. instructed patient to start with vitamin, no more smoking and call office with any concerns. ICD-9 : V22.2 ICD-10 : Z34.90 12/01/2019 Visit Diagnosis Plan: Abnormal Pap smear of cervix Dis cussion: has appt with dr. moss for further evaluation. ICD-9 : 795.00 ICD-10 : R87.619 12/01/2019 Appointment: Keyanna Mejía [address] [place], [place] [id number] RESCHEDULED 12/01/2019 Appointment: Keyanna Mejía [address] [facility] US FOLLOW UP 12/01/2019 Patient Education: Ravindra [employer] [id number] [email or web address] Completed 12/01/2019 Appointment: Josefa Talamantes WPtel: [id number] [place] INJECTION 11/19/2019 Care Plan: 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 ICD-9 : 616.10 ICD-10 : N76.0 11/16/2019 Visit Diagnosis Plan: Encounter for gyne cological examination (general) (routine) with abnormal findings Discussion: fasting labs to be completed this week at [facility]. order written and given to patient. pap and breast exam completed. see other plans. ICD-9 : V72.31 ICD-10 : Z01.411 11/16/2019 Visit Diagnosis Plan: Left breast mass Discussion: kasie gnostic mammo and ultrasound ordered. ICD-9 : 611.72 ICD-10 : N63.20 11/16/2019 Visit Diagnosis Plan: control counseling Discuss ion: restart depo. sent to pharmacy for patient to bring to office for injection. in house test neg. ICD-9 : V25.09 ICD-10 : Z30.09 11/16/2019 Visit Diagnosis Plan: Bilateral lower extremity edema Discussion: fasting labs to be completed including thyroid panel. ICD-9 : 782.3 ICD-10 : R60.0 11/16/2019 Appointment: Keyanna Mejía [address] [facility] Annual Well Visit 11/16/2019 Visit Diagnosis Plan: Urethritis Discussion: Diflucan and topical nystatin ICD-9 : 597.80 ICD-10 : N34.2 07/07/2019 Visit Diagnosis Plan: History of renal stone Discussio n: Flomax Push water If not improving within 48hrs or if worsening then will need CT scan to assess for stone ICD-9 : V13.01 ICD-10 : Z87.442 07/07/2019 Appointment: Josefa Talamantes WPtel: [address] [place] [address] ACUTE ILLNESS 07/07/2019 Patient Education: nystatin- [employer] Coupon [id number] [email or web address]/[email or web address] Completed 07/07/2019 Appointment: Josefa Talamantes WPtel: [address] [place] [address] UA 06/15/2019 Visit Diagnosis Plan: Dysuria Discussion: due to recur rent pain and worsening symptoms, rocephin 1 gm given in office. will send urine off for culture and call on saturday if any changes needed. instructed to push fluids through the w eekend and go to urgent care with any worsening. ICD-9 : 788.1 ICD-10 : R30.0 06/05/2019 Appointment: Keyanna Mejía [address] [place] [address] FOLLOW UP 06/05/2019 Visit Diagnosis Plan: Left wrist pain Discussion: refe rral made to dr dunlap for worsening pain in left wrist. instructed patient to keep wrist wrapped and immobilized. ibuprofen 800 mg prescribed for patient to take every 8 hrs as needed. ok to continue with hydro as needed but discussed that the NSAID may help better due to the swelling. ice to arm 20 min off, 20 min on through the day to help with swelling and instructed to keep arm elevated above heart when seated ICD-9 : 719.43 ICD-10 : M25.532 03/16/2019 Appointment: Keyanna Mejía [address] [place] [address] Hospital Follow Up 03/16/2019 Appointment: Josefa Talamantes WPtel: [phone] UA 03/02/2019 Appointment: Josefa Talamantes WPtel: [phone] [place], [place] [phone] [place] INJECTION 02/16/2019 Appointment: Josefa Talamantes WPtel: [address] [place], [place] [phone] [place] INJECTION 05/21/2018 Visit Diagnosis Plan: Nontoxic single thyroid nodule D iscussion: will obtain records of thyroid ultrasound from october of 2016 to evaluate previous scan. addendum: ultrasound showed nodules with need for updated scan in 6 months. will order thyroid ultrasound to be completed. ICD-9 : 241.0 ICD-10 : E04.1 03/03/2018 Visit Diagnosis Plan: Irregular menstruation, unspecif ied Discussion: urine performed in office and negative. 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 had pap october of 2016. not due until 2019 or patient turns 29. ICD-9 : 626.4 ICD-10 : N92.6 03/03/2018 Visit Diagnosis Plan: Diseases of lips Discussion: ref erral to be sent to dr. galloway for evaluation of mass for possible debridement. instructed patient to apply warm compresses to lip until seen. ICD-9 : 528.5 ICD-10 : K13.0 03/03/2018 Appointment: Keyanna Mejía [address] [place] [address] [place] ACUTE ILLNESS 03/03/2018 Patient Education: Patient Medication Summary Completed 03/03/2018 Care Plan: US EXAM OF HEAD AND NECK thyroid LOIN C : 98895-6 Pending 03/03/2018 Appointment: Josefa Talamantes WPtel: [address] [place], [place] [phone] [place] CANCELED 02/27/2018 Appointment: Josefa Talamantes WPtel: [address] [place], [place] [phone] US INJECTION 11/26/2017 Patient Education: Patient Medication Summary Completed 11/26/2017 Appointment: Josefa Talamantes WPtel: [address] [place], [place] [phone] [place] INJECTION 08/27/2017 Patient Education: Patient Medication Summary Completed 08/27/2017 Appointment: Josefa Talamantes WPtel: [address] [place], [place] [id number] [place] INJECTION 06/06/2017 Patient Education: Patient Medication Summary Completed 06/06/2017 Appointment: [facility] [place] [facility] 01/04/2017 Patient Education: Patient Medication Summary Completed 01/04/2017 Appointment: Josefa Talamantes WPtel: [address] [place], [place] [id number] [place] 11/19 lm `sl 11/21 lm `sl NO SHOW 11/22/19 17 Patient Education: Patient Medication Summary Completed 10/22/2016 Care Plan: US EXAM OF HEAD AND NECK Thyroid Ultrasound LOIN C : 70893-2 Pending 10/22/2016 Visit Diagnosis Plan: Gastro-esophageal reflux disease without esophagitis Discussion: Pepcid 40mg qam Diet: GERD diet Follow Up: 1 months ICD-9 : 530.81 ICD-10 : K21.9 10/18/2016 Visit Diagnosis Plan: Encounter for gyne cological examination (general) (routine) without abnormal findings Discussion: STI caution Recommend Prenat al vitamin and Calcium Recommend routine SBE Pap done On Depoprovera ICD-9 : V72.31 ICD-10 : Z01.419 10/18/2016 Visit Diagnosis Plan: Dysphagia, pharyngeal phase Disc ussion: With globus sensation ICD-9 : 787.23 ICD-10 : R13.13 10/18/2016 Appointment: Josefa Talamantes WPtel: [address] [place], [place] [id number] [place] 6/7 lm `sl Annual Well Visit 10/18/2016 Patient Education: Patient Medication Summary Completed 10/18/2016 Appointment: Josefa Talamantes WPtel: [address] [place], [place] [id number] [place] INJECTION 10/12/2016 Patient Education: Patient Medication Summary Completed 10/12/2016 Visit Diagnosis Plan: Influenza due to i dentified novel influenza A virus with other respiratory manifestations Discussion: Flu A positive Rx as above Supportive care otherwise Contagious precautions discussed Notify kids' provider of exposure for their instructions ICD-9 : 488.02 ICD-10 : J09.X2 08/08/2016 Appointment: Catrina Bran [address] [place], [place] [phone] ACUTE ILLNESS 08/08/2016 Patient Education: Patient Medication Summary Completed 08/08/2016 Appointment: Josefa Talamantes WPtel: [address] [place], [place] [phone] [place] INJECTION 07/25/2016 Patient Education: Patient Medication Summary Completed 07/25/2016 Visit Plan: Finish abx and then recultur e 48hrs after completion Add levsin and zorvolex 05/15/2016 Appointment: Josefa Talamantes WPtel: [address] [place], [place] [phone] [place] 05/14 lm `sl 05/15 confirmed~ Hospital Follow Up 0 05/15/2016 Patient Education: Patient Medication Summary Completed 05/15/2016 Appointment: Catrina Bran [address] [place], [place] [phone] 05/09 admitted into the hospital last night~ ACUTE ILLNESS 05/09/2016 Appointment: Josefa Talamantes WPtel: [address] [place], [place] [phone] [place] INJECTION 05/03/2016 Patient Education: Patient Medication Summary Completed 05/03/2016 Appointment: Josefa Talamantes WPtel: [address] [place], [place] [phone] [place] INJECTION 02/20/2016 Patient Education: Patient Medication Summary Completed 02/20/2016 Visit Plan: ERx for Bactrim and Bactroba n Called to [facility] Ultram 50mg 1 po q 4-6 hours prn pain #20 Warm moist heat to area qid Watch for s/s of worsening, go to UC over weekend Discussed SE of meds including s/s of SJS which would require an ER visit C&S obtained 12/23/2015 Appointment: Kitty Caldera WPtel: [address] [place], [place] [phone] [place] ACUTE ILLNESS 12/23/2015 Patient Education: Patient Medication Summary Completed 12/23/2015 Appointment: Josefa Talamantes WPtel: [phone] [place], [place] [phone] [place] INJECTION 11/07/2015 Patient Education: Patient Medication Summary Completed 11/07/2015 Appointment: Josefa Talamantes WPtel: [address] [place], [place] [phone] [place] INJECTION 08/01/2015 Patient Education: Patient Medication Summary Completed 08/01/2015 Appointment: Josefa Talamantes WPtel: [address] [place], [place] [phone] [place] INJECTION 05/11/2015 Patient Education: Patient Medication Summary Completed 05/11/2015 Appointment: Malgorzata Islas WPtel: [address] [place], [place] [phone] [place] PAP 04/05/2015 Appointment: Josefa Talamantes WPtel: [address] [place], [place] [phone] [place] INJECTION 02/16/2015 Patient Education: Patient Medication Summary Completed 02/16/2015 Visit Plan: Daily nasal saline rinses Fl onase nasal spray and daily Zyrtec Medrol dose pack Z-jhonathan as directed 01/26/2015 Appointment: Malgorzata Islas WPtel: [address] [place], [place] [phone] US ACUTE ILLNESS 01/26/2015 Patient Education: Patient Medication Summary Completed 01/26/2015 Appointment: Josefa Talamantes WPtel: [address] [place], [place] [phone] [place] INJECTION 11/29/2014 Patient Education: Patient Medication Summary Completed 11/29/2014 Appointment: Josefa Talamantes WPtel: [address] [place], [place] [phone] [place] INJECTION 09/09/2014 Patient Education: Patient Medication Summary Completed 09/09/2014 Appointment: Malgorzata Islasl: [address] [place], [place] [phone] [place] FOLLOW UP 06/16/2014 Patient Education: Patient Medication Summary Completed 06/16/2014 Appointment: RichErinMalgorzata geiger WPtel: [address] [place], [place] [phone] 06/02/14 appointment scheduled 06/03/14 no showed PAP 06/03/2014 Appointment: RichFabricioRolandosa Reese WPtel: [address] [place], [place] [phone] FOLLOW UP 01/28/2014 Patient Education: Patient Medication Summary Completed 01/28/2014 Care Plan: COMPREHEN [facility]ABOLIC PANEL [facility] 28923-8 Ordered 01/28/2014 Care Plan: AMYLASE Pending 4 Appointment: JanelMlagorzata Hugh WPtel: [address] [place], [place] [phone] FOLLOW UP 12/10/2013 Patient Education: Patient Medication Summary Completed 12/10/2013 Appointment: JanelRolandosa Reese WPtel: [address] [place], [place] [phone] 11/11 vm 11/12 No Show FOLLOW UP 11/12/2013 Appointment: RichEringregoriosangita Malgorzata Hugh WPtel: [address] [place], [place] [phone] FOLLOW UP 10/20/2013 Patient Education: Patient Medication Summary Completed 10/20/2013 Visit Plan: Quantitative Hcg and CBC tod ay. Transvaginal/Transabdominal sonogram stat Discussed with [facility] and [facility] 343 so will recheck in 1week as long as not worsening 10/07/2013 Appointment: Malgorzata Islas WPtel: [address] [place], [place] [phone] ACUTE ILLNESS 10/07/2013 Patient Education: Patient Medication Summary Completed 10/07/2013 Appointment: Malgorzata Islas WPtel: [address] [place], [place] [phone] ACUTE ILLNESS 09/15/2013 Patient Education: Patient Medication Summary Completed 09/15/2013 Appointment: Malgorzata Islas WPtel: [address] [place] [address] ACUTE ILLNESS 06/24/2013 Patient Education: Patient Medication Summary Completed 06/24/2013 Appointment: Malgorzata Islas WPtel: [address] [place] [address] appt was scheduled today then patient no showed the visit ACUTE ILLNESS 05/21/2013 Visit Plan: Check CMP, CBC, UA CT scan o f abdomen Omeprazole 03/05/2013 Appointment: Josefa Talamantes WPtel: [address] [place] [address] ACUTE ILLNESS 03/05/2013 Appointment: Josefa Talamantes WPtel: [address] [place] [address] 03/02 canceled, wrong patient FOLLOW UP Patient Education: Patient Medication Summary Completed 03/05/2013 Appointment: Malgorzata Islas WPtel: [address] [place] [address] ACUTE ILLNESS 02/09/2013 Patient Education: Patient Medication Summary Completed 02/09/2013 Appointment: Justine Ortega WPtel: [address] [place] [address] ACUTE ILLNESS 09/08/2010 Patient Education: Patient Medication Summary Completed 09/08/2010 Appointment: Justine Ortega WPtel: [address] [place] [address] PAP 08/08/2010 Appointment: Justine Ortega WPtel: [address] [place] [address] ACUTE ILLNESS 07/24/2010 Patient Education: Patient Medication Summary Completed 07/24/2010 Visit Plan: All warts shaved with 11-rekha de scalpel and then cryotherapy x3 Will followup with DNCB treatment 03/08/2010 Appointment: Josefa TalamantesMaria Teresa [facility]el[facility] [address] [facility] [facility] 03/08/2010 Patient Education: Patient Medication Summary Completed 03/08/2010 Appointment: Josefa TalamantesMaria Teresa WPtel: [phone] [facility] US PAP 09/14/2009 Referral: Roney Galloway WPtel: [address] [facility] 3 [id number] [place] Referral Initiated Referral: Brian Floyd WPtel: [address] [id number] [place] Referral Initiated Referral: Referral Initiated Instructions Comment . Finish abx and then reculture 48hrs af ter completion Add levsin and zorvolex . ERx for Bactrim and BactrobanCalled t o [place] Ultram 50mg 1 po q 4-6 hours prn pain #20 Warm moist heat to area qid Watch for s/s of worsening, go to UC over weekend Discussed SE of meds including s/s of SJS which would require an ER visit C&S obtained . Daily nasal saline rinses Flonase nasal spray and daily Zyrtec Medrol dose pack Z-jhonathan as directed . Quantitative Hcg and CBC today. Transvaginal/Transabdominal sonogram stat Discussed with [facility] and [facility] 343 so will recheck in 1week as long as not worsening . Check CMP, CBC, UA CT scan of abdomen Omeprazole . All warts shaved with 11-blade scalpel and then cryotherapy x3 Will followup with DNCB treatment Medical Equipment No Medical Equipment data Health Concerns Section Health Concerns data not found Goals Section Goals data not found Interventions Section Interventions data not found Health Status Evaluations/Outcomes Section Health Status Evaluations/Outcomes data not found Advance Directives No Advance Directive data
--- OUTSIDE RECORDS SUMMARY | 2019-12-11 21:56 | XMS REPORT | CCD ---
Author Author Brenda Talamantes D.O. Organization [facility] Address [address] [place] [address] Phone Care Team Providers Care Shop Foreman Name Role Phone Josefa Talamantes D.O., PP Unavailable CCM Unavailable Summary Purpose Interface Exchange Insurance Providers Payer name Policy type / Coverage type Covered alliance party ID Effective Begin Date Effective End Date [employer] [facility] Commercial Insurance [id number] Unknown Family History Family History data not found Social History Social History Element Codes Description Effective Dates Tobacco history SNOMED CT: 460451118 Unknown if ever smoked 01/12 Allergies, Adverse [...] Diclegis 10 mg-10 mg tablet,delayed release RxNorm: 6286506 2 Tablet(s) Oral QPM 12/01/2019 12/01/2019 Inactive vitamin E 400 unit capsule RxNorm: 375312 1 Capsule(s) Oral QD 11/10 No Stop Date Active metronidazole 500 mg tablet RxNorm: 772079 1 Tablet(s) Oral two times a day 11/17/2019 11/16/2019 Inactive metronidazole 500 mg tablet RxNorm: 970934 1 Tablet(s) Oral two times a day 11/17/2019 11/24/2019 Inactive Depo-Provera 150 mg/mL intramuscular suspension RxNorm: 1000 128 1 Application Intramuscular 11/16/2019 No Stop Date Active Diflucan 100 mg tablet RxNorm: 834354 1 Tablet(s) Oral QD 07/07/2019 07/14/2019 Inactive Flomax 0.4 mg capsule RxNorm: 550327 1 Capsule(s) Oral QPM for kidney stone 07/07/2019 08/06/2019 Inactive nystatin 100,000 unit/gram topical cream RxNorm: 695082 Application Topical two times a day to periurethral area 07/07/2019 11/16/2019 Inactive Bactrim DS 800 mg-160 mg tablet RxNorm: 593124 1 Tablet(s) Oral two times a day 06/08/2019 06/13/2019 Inactive Bactrim DS 800 mg-160 mg tablet RxNorm: 938754 1 Tablet(s) Oral two times a day 06/08/2019 06/07/2019 Inactive ibuprofen 800 mg tablet RxNorm: 759580 1 Tablet(s) Oral Q8H as needed 03/16/2019 06/05/2019 Inactive Cipro 500 mg tablet RxNorm: 558121 1 Tablet(s) Oral two times a day 03/04/2019 03/11/2019 Inactive Cipro 500 mg tablet RxNorm: 204761 1 Tablet(s) Oral two times a day 03/04/2019 03/03/2019 Inactive Macrobid 100 mg capsule RxNorm: 089372 1 Capsule(s) Oral two ti mes a day 02/16/2019 02/15/2019 Inactive Macrobid 100 mg capsule RxNorm: 167719 1 Capsule(s) Oral two ti mes a [...] 11/24/2017 Inactive Pepcid 40 mg tablet RxNorm: 442846 1 Tablet(s) PO QD 10/18/201603/02 Inactive Depo-Provera 150 mg/mL intramuscular suspension RxNorm: 1000 128 Milliliter(s) 1 Milliliter(s) IM 10/10/2016 06/04/2017 Inactive Tamiflu 75 mg capsule RxNorm: 007425 1 Capsule(s) PO BID 08/08/2016 0 08/12/2016 Inactive Levsin 0.125 mg tablet RxNorm: 2245532 1 Tablet(s) PO TID for fl ank pain 05/15/2016 10/17/2016 Inactive Bactrim DS 800 mg-160 mg tablet RxNorm: 253155 1 Tablet(s) PO BID 0 12/23/2015 01/01/2016 Inactive mupirocin 2 % topical ointment RxNorm: 488982 Application TOP TID 0 12/23/2015 12/29/2015 Inactive Depo-Provera 150 mg/mL intramuscular suspension RxNorm: 1000 128 Milliliter(s) 1 Milliliter(s) IM 11/08/2015 10/09/2016 Inactive Xanax 0.25 mg tablet RxNorm: 679584 TAKE ONE-HALF TO ON E TABLET BY MOUTH NEEDED FOR ANXIETY 04/11/2015 05/10/2015 Inactive Generic For:X ANAX 0.25 MG TABLET 04/11/2015 2:54:57 PM Depo-Provera 150 mg/mL intramuscular suspension RxNorm: 1000 128 Milliliter(s) 1 Milliliter(s) IM 02/15/2015 11/07/2015 Inactive azithromycin 250 mg tablet RxNorm: 447137 2 Tablet(s) P O today, then one tablet on days 2 - 5 01/26/2015 12/22/2015 Inactive Medrol (Jhonathan) 4 mg tablets in a dose pack RxNorm: 013020 Tablet(s) P O 01/26/2015 12/22/2015 Inactive Depo-Provera 150 mg/mL intramuscular suspension RxNorm: 1000 128 1 Milliliter(s) IM 09/06/2014 02/15/2015 Inactive Xanax 0.25 mg tablet RxNorm: 353189 1/2 - 1 Tablet(s) PO as nee ded for anxiety 06/16/2014 04/12/2015 Inactive Zoloft 50 mg tablet RxNorm: 486279 1 Tablet(s) PO QD 06/16/201412/21 Inactive Flexeril [...] 2014 Inactive Xanax 0.25 mg tablet RxNorm: 002364 1/2 - 1 Tablet(s) PO as nee ded for anxiety 01/28/2014 06/15/2014 Inactive naproxen 500 mg tablet RxNorm: 749090 1 Tablet(s) PO BID 12/10/2013 0 01/08/2014 Inactive Zoloft 50 mg tablet RxNorm: 493872 1 Tablet(s) PO QD 12/10/201304/08 Inactive Xanax 0.25 mg tablet RxNorm: 615037 1/2 - 1 Tablet(s) PO as nee ded for anxiety 12/10/2013 01/27/2014 Inactive Xanax 0.25 mg tablet RxNorm: 668146 1 Tablet(s) PO Q8H 10/20/2013 Inactive Zoloft 50 mg tablet RxNorm: 447441 1/2 Tablet(s) PO x 6 days then on1 tablet daily 10/20/2013 11/18/2013 Inactive Loestrin Fe 06/01 (28) 1 mg-20 mcg tablet RxNorm: 1189089 1 Table t(s) PO QD 10/20/2013 05/03/2014 Inactive phenazopyridine 100 mg tablet RxNorm: 7622426 1 Tablet(s) PO Q8H 06/26/2013 Inactive Macrobid 100 mg capsule RxNorm: 511270 1 Capsule(s) PO BID 06/25/19 14 07/04/2013 Inactive phenazopyridine 100 mg tablet RxNorm: 3001410 1 Tablet(s) PO Q8H 06/24/2013 Inactive Macrobid 100 mg capsule RxNorm: 384501 1 Capsule(s) PO BID 07/25/19 11 08/02/2010 Inactive Apri 0.15 mg-30 mcg tablet RxNorm: 886515 1 Tablet(s) PO QD As directed. No Start Date 06/23/2013 Inactive omeprazole 40 mg capsule,delayed release RxNorm: 020151 1 Capsule(s) PO QD for stomach No Start Date 06/23/2013 Inactive naproxen 500 mg tablet RxNorm: 685890 1 Tablet(s) PO BID No Start D ate 06/15/2014 Inactive hydrocodone 10 mg-acetaminophen 325 mg tablet RxNorm: 886597 Tablet(s) PO as needed for pain No Start Date 12/22/2015 Inactive Zoloft 50 mg tablet RxNorm: 253000 1 Tablet(s) PO QD No Start Date Inactive hydrocodone 5 mg-acetaminophen 325 mg tablet RxNorm: 362657 1 Tablet(s) PO QID as needed for pain No Start Date 09/14/2013 Inactive Medication Administered No Medication Administered data Immunizations No Immunization data Results Observation Observation Code Item Item Code Result Date S ervice Location V [facility] [id number] Whiff TNP:Duplicate Order 11/17/19 20 Unknown V [facility] [id number] WBC Vaginal TNP:Duplicate Order 2019 Unknown V [facility] [id number] MIX HOUSE OPERATOR Lactobac TNP:Duplicate Order 2019 Unknown V [facility] [id number] Clue Cells TNP:Duplicate Order 020 Unknown V [facility] [id number] MIX HOUSE OPERATOR Curved GNR TNP:Duplicate Order 11/2019 Unknown V [facility] [id number] Yeast Vaginal TNP:Duplicate Order 11/2019 Unknown V PROF SWB [id number] MIX HOUSE OPERATOR SM GVB TNP:Duplicate Order 11/17/19 20 Unknown V PROF SWB [id number] MIX HOUSE OPERATOR Swb Trich Ag TNP:Duplicate Order Unknown V PROF SWB [id number] MIX HOUSE OPERATOR BV Stain TNP:Duplicate Order 2019 Unknown V PROF SWB [id number] MIX HOUSE OPERATOR Interp TNP:Duplicate Order 11/17/19 20 Unknown V PROF SWB [id number] Conf BV Stain TNP:Duplicate Order 11/2019 Unknown V PROF SWB [id number] Whiff Positive 11/17/2019 Unknown V PROF SWB [id number] WBC Vaginal Few 11/17/2019 Unknow n V PROF SWB [id number] Clue Cells >20% 11/17/2019 Unknown V PROF SWB [id number] Yeast Vaginal None 11/17/2019 Unkn own V PROF SWB [id number] MIX HOUSE OPERATOR Swb Trich Ag Negative 11/17/2019 Un known V PROF SWB [id number] MIX HOUSE OPERATOR BV Stain 10 11/17/2019 Unknow n V PROF SWB [id number] MIX HOUSE OPERATOR Interp Results indicate Bacteria l Vaginosis Syndrome. 11/17/2019 Unknown VAG PROF [id number] PH TNP:Improper Specimen 020 Unknown VAG PROF [id number] Whiff TNP:Improper Specimen 020 Unknown VAG PROF [id number] WBC Vaginal TNP:Improper Specimen 11/15 Unknown VAG PROF [id number] MIX HOUSE OPERATOR Lactobac TNP:Improper Specimen 11/15 Unknown VAG PROF [id number] Clue Cells TNP:Improper Specimen 2019 Unknown VAG PROF [id number] MIX HOUSE OPERATOR Curved GNR TNP:Improper Specimen 10/2019 Unknown VAG PROF [id number] Yeast Vaginal TNP:Improper Specimen 10/2019 Unknown VAG PROF [id number] MIX HOUSE OPERATOR SM GVB TNP:Improper Specimen 020 Unknown VAG PROF [id number] Trichomonas TNP:Improper Specimen 11/15 Unknown VAG PROF [id number] MIX HOUSE OPERATOR BV Stain TNP:Improper Specimen 11/15 Unknown VAG PROF [id number] MIX HOUSE OPERATOR Intp TNP:Improper Specimen 020 Unknown VAG PROF [id number] Conf BV Stain TNP:Improper Specimen 10/2019 Unknown LIPASE 15744 LIPASE 14 IU/L 01/28/2014 Unknown COMPLETE BLOOD COUNT [id number] WBC 6.5 10e9/L 01/29/20 14 Unknown COMPLETE BLOOD COUNT [id number] RBC 4.54 10e12/L 2013 Unknown COMPLETE BLOOD COUNT [id number] HGB 12.1 g/dL 4 Unknown COMPLETE BLOOD COUNT [id number] HCT DET 38.0 % 4 Unknown COMPLETE BLOOD COUNT [id number] MCV 83.7 fL 4 Unknown COMPLETE BLOOD COUNT 1035937 MCH 26.7 pg 4 Unknown COMPLETE BLOOD COUNT [id number] MCHC 31.8 g/dL 4 Unknown COMPLETE BLOOD COUNT [id number] PLT 218 10e9/L 01/29/20 14 Unknown COMPLETE BLOOD COUNT [id number] MPV 12.8 fL 4 Unknown COMPLETE BLOOD COUNT [id number] RACHNA % 56.5 % 4 Unknown COMPLETE BLOOD COUNT 8233553 LY % 32.3 % 4 Unknown COMPLETE BLOOD COUNT [id number] MON % 8.6 % 4 Unknown COMPLETE BLOOD COUNT [id number] EOS % 2.1 % 4 Unknown COMPLETE BLOOD COUNT [id number] BASO % 0.5 % 4 Unknown COMPLETE BLOOD COUNT [id number] RDW 18.4 % 4 Unknown COMPLETE BLOOD COUNT [id number] ABS RACHNA 3.67 10e9/L 014 Unknown COMPLETE BLOOD COUNT [id number] ABS LYMPH 2.10 10e9/L 014 Unknown COMPLETE BLOOD COUNT [id number] ABS MONO 0.56 10e9/L 014 Unknown COMPLETE BLOOD COUNT [id number] ABS EOS 0.14 10e9/L 014 Unknown COMPLETE BLOOD COUNT [id number] ABS BASO 0.03 10e9/L 014 Unknown COMPLETE BLOOD COUNT [id number] RDW-SD 55.5 fL 4 Unknown COMPREHENSIVE METABOLIC 88383 AST 13 U/L 2013 Unknown COMPREHENSIVE METABOLIC 88358 ALT 7 IU/L 2013 Unknown COMPREHENSIVE METABOLIC 55955 BUN 8 MG/DL 2013 Unknown COMPREHENSIVE METABOLIC 57840 ALBUMIN 4.5 GM/DL 2013 Unknown COMPREHENSIVE METABOLIC 76792 CHLORIDE 106 MMOL/L 01/28 Unknown COMPREHENSIVE METABOLIC 92131 BILI TOT 0.4 MG/DL 2013 Unknown COMPREHENSIVE METABOLIC 50012 ALK PHOS 55 U/L 2013 Unknown COMPREHENSIVE METABOLIC 22453 SODIUM 138 MMOL/L 01/28 Unknown COMPREHENSIVE METABOLIC 96446 CREATININE 0.73 MG/DL 01/11 Unknown COMPREHENSIVE METABOLIC 28036 CALCIUM 9.9 MG/DL 2013 Unknown COMPREHENSIVE METABOLIC 39406 POTASSIUM 3.8 MMOL/L 01/28 Unknown COMPREHENSIVE METABOLIC 20989 PROT TOT 7.4 GM/DL 2013 Unknown COMPREHENSIVE METABOLIC 85815 Glucose 96 MG/DL 2013 Unknown COMPREHENSIVE METABOLIC 89459 BICARB 27 MMOL/L 2013 Unknown COMPREHENSIVE METABOLIC 22976 ANION GAP 5 MEQ/L 2013 Unknown AMYLASE 02941 AMYLASE 42 IU/L 01/28/2014 Unknown GFR CALC 2735105 GFR AA >60 ML/MIN 01/28/2014 Unknown GFR CALC [id number] GFR NON-AA >60 ML/MIN 01/28/2014 Unknown Procedures Procedure Codes Date URINE TEST CPT-4: 87203 12/01/2019 THER/PROPH/DIAG INJ SC/IM CPT-4: 67170 11/19/2019 URINE TEST CPT-4: 46173 11/16/2019 SPECIMEN HANDLING OFFICE-LAB CPT-4: 94689 11/16/2019 URINE CULTURE/ COLONY COUNT CPT-4: 45553 06/15/2019 URINALYSIS NONAUTO W/O SCOPE CPT-4: 16900 06/05/2019 CEFTRIAXONE SODIUM INJECTION CPT-4: J0696 06/05/2019 THER/PROPH/DIAG INJ SC/IM CPT-4: 91159 06/05/2019 URINE CULTURE/ COLONY COUNT CPT-4: 24101 06/05/2019 URINE CULTURE/ COLONY COUNT CPT-4: 27449 03/02/2019 THER/PROPH/DIAG INJ SC/IM CPT-4: 12708 02/16/2019 URINE CULTURE/ COLONY COUNT CPT-4: 25419 02/16/2019 URINALYSIS NONAUTO W/O SCOPE CPT-4: 89901 02/16/2019 URINE TEST CPT-4: 98663 02/16/2019 THER/PROPH/DIAG INJ SC/IM CPT-4: 96300 05/21/2018 THER/PROPH/DIAG INJ SC/IM CPT-4: 37902 11/26/2017 THER/PROPH/DIAG INJ SC/IM CPT-4: 54168 08/27/2017 THER/PROPH/DIAG INJ SC/IM CPT-4: 95432 06/06/2017 URINALYSIS NONAUTO W/O SCOPE CPT-4: 76452 06/06/2017 GC/CHLAMYDIA DNA ([facility]) CPT-4: 23837|82392 8 URINE CULTURE/ COLONY COUNT CPT-4: 27371 06/06/2017 THER/PROPH/DIAG INJ SC/IM CPT-4: 49321 01/04/2017 SPECIMEN HANDLING OFFICE-LAB CPT-4: 17484 10/18/2016 THER/PROPH/DIAG INJ SC/IM CPT-4: 12875 10/12/2016 INFLUENZA ASSAY W/OPTIC CPT-4: 06122 08/08/2016 THER/PROPH/DIAG INJ SC/IM CPT-4: 36431 07/25/2016 THER/PROPH/DIAG INJ SC/IM CPT-4: 22471 05/03/2016 THER/PROPH/DIAG INJ SC/IM CPT-4: 67447 02/20/2016 URINE TEST CPT-4: 43122 02/20/2016 AEROBIC WOUND CULTURE & STN CPT-4: 65044 12/23/2015 THER/PROPH/DIAG INJ SC/IM CPT-4: 22378 11/07/2015 URINE TEST CPT-4: 78383 11/07/2015 THER/PROPH/DIAG INJ SC/IM CPT-4: 42161 08/01/2015 THER/PROPH/DIAG INJ SC/IM CPT-4: 29602 05/11/2015 THER/PROPH/DIAG INJ SC/IM CPT-4: 29538 02/16/2015 THER/PROPH/DIAG INJ SC/IM CPT-4: 66295 11/29/2014 THER/PROPH/DIAG INJ SC/IM CPT-4: 28753 09/09/2014 URINE TEST CPT-4: 43914 06/16/2014 THER/PROPH/DIAG INJ SC/IM CPT-4: 80752 06/16/2014 ROUTINE VENIPUNCTURE CPT-4: 11085 10/07/2013 COMPLETE CBC W/AUTO DIFF WBC CPT-4: 96455 10/07/2013 CHORIONIC GONADOTROPIN TEST CPT-4: 07774 10/07/2013 URINE TEST CPT-4: 81434 09/15/2013 URINALYSIS NONAUTO W/O SCOPE CPT-4: 41693 06/24/2013 URINE CULTURE/ COLONY COUNT CPT-4: 76574 06/24/2013 URINE TEST CPT-4: 69436 09/08/2010 URINALYSIS NONAUTO W/O SCOPE CPT-4: 07559 07/24/2010 URINE CULTURE/ COLONY COUNT CPT-4: 44063 07/24/2010 DESTRUCT PREMALG LESION (Cryosurgery) CPT-4: 82343 DESTRUCT PREMALG LES 2-14 CPT-4: 25514 03/08/2010 Vital Signs Date Vital 12/01/2019 Blood Pressure 1: 128/78 Code: 8480-6 Heart Rate 1: 80 bpm Respiratory Rate: 16 bpm SpO2: 98% Temperature: 36.7 (C) / 98.0 (F) We ight: 161 lbs 11/16/2019 Blood Pressure 1: 119/75 Code: 8480-6 BMI: 24.4 Code: 29630-9 Heart Rate 1: 112 bpm Height: 5'9" Respiratory Rate: 15 bpm SpO2: 98% Tempera ture: 36.8 (C) / 98.2 (F) Weight: 165 lbs 07/07/2019 Blood Pressure 1: 126/82 Code: 8480-6 Heart Rate 1: 100 bpm SpO2: 99% Temperature: 36.8 (C) / 98.2 (F) 06/05/2019 Blood Pressure 1: 131/82 Code: 8480-6 BMI: 26.3 Code: 92366-3 Heart Rate 1: 109 bpm Height: 5'9" Respiratory Rate: 16 bpm SpO2: 99% Tempera ture: 36.7 (C) / 98.1 (F) Weight: 178 lbs 03/16/2019 Blood Pressure 1: 132/86 Code: 8480-6 Heart Rate 1: 73 bpm SpO2: 99% Temperature: 36.6 (C) / 97.9 (F) Weight: 158 lbs 03/03/2018 Blood Pressure 1: 120/88 Code: 8480-6 BMI: 23.9 Code: 21107-9 Heart Rate 1: 81 bpm Height: 5'9" Respiratory Rate: 18 bpm SpO2: 99% Tempera ture: 36.1 (C) / 97.0 (F) Weight: 162 lbs 10/18/2016 Blood Pressure 1: 108/ Code: 8480-6 BMI: 22.6 Code: 11850-7 Heart Rate 1: 100 bpm Height: 5'9" Respiratory Rate: 20 bpm SpO2: 98% Tempera ture: 37.1 (C) / 98.8 (F) Weight: 153 lbs 08/08/2016 Blood Pressure 1: 114/ Code: 8480-6 Heart Rate 1: 102 bpm Respiratory Rate: 20 bpm SpO2: 98% Temperature: 36.4 (C) / 97.6 (F) We ight: 152 lbs 05/15/2016 Blood Pressure 1: 124/80 Code: 8480-6 BMI: 23.2 Code: 79201-0 Heart Rate 1: 100 bpm Height: 5'9" Respiratory Rate: 20 bpm Temperature: 37 .0 (C) / 98.6 (F) Weight: 157 lbs 12/23/2015 Blood Pressure 1: 124/78 Code: 8480-6 BMI: 23.0 Code: 61914-9 Heart Rate 1: 92 bpm Height: 5'9" Respiratory Rate: 20 bpm SpO2: 97% Tempera ture: 36.9 (C) / 98.5 (F) Weight: 156 lbs 01/26/2015 Blood Pressure 1: 118/78 Code: 8480-6 BMI: 21.3 Code: 55667-8 Heart Rate 1: 100 bpm Height: 5'9" Respiratory Rate: 20 bpm SpO2: 97% Tempera ture: 36.6 (C) / 97.8 (F) Weight: 144 lbs 06/16/2014 Blood Pressure 1: 118/78 Code: 8480-6 BMI: 23.5 Code: 05405-4 Heart Rate 1: 78 bpm Height: 5'9" Respiratory Rate: 18 bpm Temperature: 36 .1 (C) / 97.0 (F) Weight: 159 lbs 01/28/2014 Blood Pressure 1: 124/78 Code: 8480-6 BMI: 23.2 Code: 55930-7 Heart Rate 1: 88 bpm Height: 5'9" Respiratory Rate: 22 bpm Temperature: 36 .1 (C) / 97.0 (F) Weight: 157 lbs 12/10/2013 Blood Pressure 1: 124/70 Code: 8480-6 BMI: 23.0 Code: 69535-9 Heart Rate 1: 82 bpm Height: 5'9" Respiratory Rate: 20 bpm Temperature: 36 .2 (C) / 97.2 (F) Weight: 156 lbs 10/20/2013 Blood Pressure 1: 118/82 Code: 8480-6 Heart Rate 1: 84 bpm Respiratory Rate: 22 bpm Temperature: 36.5 (C) / 97.7 (F) Weight: 150 lbs 10/07/2013 Blood Pressure 1: 120/80 Code: 8480-6 BMI: 22.2 Code: 82761-8 Heart Rate 1: 68 bpm Height: 5'9" Respiratory Rate: 22 bpm Temperature: 36 .2 (C) / 97.2 (F) Weight: 150 lbs 09/15/2013 Blood Pressure 1: 118/68 Code: 8480-6 BMI: 22.0 Code: 45455-9 Heart Rate 1: 78 bpm Height: 5'9" Respiratory Rate: 20 bpm Temperature: 36 .1 (C) / 97.0 (F) Weight: 149 lbs 06/24/2013 Blood Pressure 1: 112/74 Code: 8480-6 Heart Rate 1: 74 bpm Respiratory Rate: 20 bpm Temperature: 36.6 (C) / 97.9 (F) Weight: 150 lbs 03/05/2013 Blood Pressure 1: 126/88 Code: 8480-6 BMI: 23.5 Code: 82822-2 Heart Rate 1: 80 bpm Height: 5'9" Respiratory Rate: 20 bpm Temperature: 36 .6 (C) / 97.9 (F) Weight: 159 lbs 02/09/2013 Blood Pressure 1: 110/68 Code: 8480-6 BMI: 21.9 Code: 55757-8 Heart Rate 1: 74 bpm Height: 5'9" Respiratory Rate: 22 bpm Temperature: 36 .8 (C) / 98.2 (F) Weight: 148 lbs 09/08/2010 Blood Pressure 1: 124/90 Code: 8480-6 BMI: 21.4 Code: 48151-0 Height: 5'10" Temperature: 36.4 (C) / 97.6 [...] painful Encounters Encounter Performer Location Codes Date ([id number]) OFFICE/OUTPATIENT VISIT EST Diagnosis: Amenorrhea[ICD10: N91.2] Diagnosis: [ICD10: Z34.90] Diagnosis: Abnormal Pap smear of cervix[ICD10: R87.619] Diagnosis: Nausea[ICD10: R11.0] Diagnosis: related nausea, antepartum[ICD10: O26.899] Keyanna HELMS NjiniMaria Teresa [employer] CPT-4: 18031 12/01/2019 ([id number]) NURSE/OUTPATIENT VISIT EST Diagnosis: Irregular menstruation, unspecified[ICD10: N92.6] Josefa Connors [employer] CPT-4: 12809 11/19/2019 ([id number]) PREV VISIT EST AGE 18-39 Diagnosis: Encounter for gynecological examination (general) (routine) with abnormal findings[ICD10: Z01.411] Diagnosis: Encounter for general adult medical examination without abnormal findings[ICD10: Z00.00] Diagnosis: Vaginitis[ICD10: N76.0] Diagnosis: Left breast mass[ICD10: N63.20] Diagnosis: Dense breast tissue[ICD10: R92.2] Diagnosis: Bilateral lower extremity edema[ICD10: R60.0] Diagnosis: control counseling[ICD10: Z30.09] Keyanna TALAMANTES [employer] CPT-4: 65971 11/16/2019 ([id number]) OFFICE/OUTPATIENT VISIT EST Diagnosis: Urethritis[ICD10: N34.2] Diagnosis: History of renal stone[ICD10: Z87.442] Josefa [facility] CPT-4: 61449 07/07/2019 ([id number]) NURSE/OUTPATIENT VISIT EST Diagnosis: Urinary tract infection[ICD10: N39.0] Josefa [facility] CPT-4: 09348 06/15/2019 ([id number]) OFFICE/OUTPATIENT VISIT EST Diagnosis: Dysuria[ICD10: R30.0] Diagnosis: Pelvic pain in female[ICD10: R10.2] Keyanna [facility]AMANTES [facility] CPT-4: 13296 06/05/2019 ([id number]) OFFICE/OUTPATIENT VISIT EST Diagnosis: Left wrist pain[ICD10: M25.532] Diagnosis: Swelling of left upper extremity[ICD10: M79.89] Keyanna [facility]ALAMANTES [facility] CPT-4: 24644 03/16/2019 ([id number]) NURSE/OUTPATIENT VISIT EST Diagnosis: Urinary tract infection[ICD10: N39.0] Josefa [facility] CPT-4: 48928 03/02/2019 ([id number]) NURSE/OUTPATIENT VISIT EST Diagnosis: Irregular menstruation, unspecified[ICD10: N92.6] Diagnosis: Urinary tract infection[ICD10: N39.0] Josefa [facility] CPT-4: 57671 02/16/2019 ([id number]) NURSE/OUTPATIENT VISIT EST Diagnosis: Irregular menstruation, unspecified[ICD10: N92.6] Josefa [facility]AMANT[facility] CPT-4: 21235 05/21/2018 ([id number]) OFFICE/OUTPATIENT VISIT EST Diagnosis: Irregular menstruation, unspecified[ICD10: N92.6] Diagnosis: Diseases of lips[ICD10: K13.0] Diagnosis: 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] Keyanna TALAMANTES [facility] CPT-4: 26271 03/03/2018 ([id number]) NURSE/OUTPATIENT VISIT EST Diagnosis: Irregular menstruation, unspecified[ICD10: N92.6] Josefa T[facility]AMANTES [facility] CPT-4: 92325 11/26/2017 ([id number]) OFFICE/OUTPATIENT VISIT EST Diagnosis: Irregular menstruation, unspecified[ICD10: N92.6] Josefa TALAMANTES [facility] CPT-4: 10062 08/27/2017 ([id number]) OFFICE/OUTPATIENT VISIT EST Diagnosis: Dysuria[ICD10: R30.0] Diagnosis: Irregular menstruation, unspecified[ICD10: N92.6] Josefa T[facility]AMANTES [facility] CPT-4: 03507 06/06/2017 ([id number]) OFFICE/OUTPATIENT VISIT EST Diagnosis: Irregular menstruation, unspecified[ICD10: N92.6] Josefa TALAMANTES [facility] CPT-4: 12158 01/04/2017 ([id number]) PREV VISIT EST AGE 18-39 Diagnosis: Encounter for general adult medical examination without abnormal findings[ICD10: Z00.00] Diagnosis: Encounter for gynecological examination (general) (routine) without abnormal findings[ICD10: Z01.419] Diagnosis: Gastro-esophageal reflux disease without esophagitis[ICD10: K21.9] Diagnosis: Dysphagia, pharyngeal phase[ICD10: R13.13] Josefa TALAMANTES [employer] [facility] CPT-4: 00521 10/18/2016 ([id number]) OFFICE/OUTPATIENT VISIT EST Diagnosis: Irregular menstruation, unspecified[ICD10: N92.6] Josefa TALAMANTES [facility] CPT-4: 41554 10/12/2016 ([id number]) OFFICE/OUTPATIENT VISIT EST Diagnosis: Fever, unspecified[ICD10: R50.9] Diagnosis: Influenza due to identified novel influenza A virus with other respiratory manifestations[ICD10: J09.X2] Catrina Bran JOSEFA [facility] CPT-4: 77538 08/08/2016 ([id number]) OFFICE/OUTPATIENT VISIT EST Diagnosis: Irregular menstruation, unspecified[ICD10: N92.6] Josefa [facility]ANTES [facility] CPT-4: 10472 07/25/2016 ([id number]) OFFICE/OUTPATIENT VISIT EST Diagnosis: Right upper quadrant pain[ICD10: R10.11] Diagnosis: Unspecified abdominal pain[ICD10: R10.9] Josefa TALAMANTES [facility] CPT-4: 26099 05/15/2016 ([id number]) OFFICE/OUTPATIENT VISIT EST Diagnosis: Irregular menstruation, unspecified[ICD10: N92.6] Josefa TALAMANTES [facility] CPT-4: 64547 05/03/2016 ([id number]) OFFICE/OUTPATIENT VISIT EST Diagnosis: Irregular menstruation, unspecified[ICD10: N92.6] Josefa TALAMANTES [facility] CPT-4: 65153 02/20/2016 OFFICE/OUTPATIENT VISIT EST Diagnosis: Cutaneous abscess of buttock[ICD10: L02.31] Kitty Caldera JOSEFA [facility] CPT-4: 46092 12/23/2015 ([id number]) OFFICE/OUTPATIENT VISIT EST Diagnosis: Irregular menstruation, unspecified[ICD10: N92.6] Josefa T[facility]AMANTES [facility] CPT-4: 00492 11/07/2015 ([id number]) OFFICE/OUTPATIENT VISIT EST Diagnosis: Irregular menstruation, unspecified[ICD10: N92.6] Josefa T[facility]AMANTES [facility] CPT-4: 11894 08/01/2015 ([id number]) OFFICE/OUTPATIENT VISIT EST Diagnosis: Irregular menstruation, unspecified[ICD10: N92.6] Josefa TALAMANTES [facility] CPT-4: 82701 05/11/2015 ([id number]) OFFICE/OUTPATIENT VISIT EST Diagnosis: Irregular menstruation, unspecified[ICD10: N92.6] Josefa TALAMANTES DO [facility] CPT-4: 34407 02/16/2015 OFFICE/OUTPATIENT VISIT EST Diagnosis: SINUSITIS, ACUTE[ICD9: 461.9] Malgorzata TALAMANTES DO [facility] CPT-4: 15989 01/26/2015 ([id number]) OFFICE/OUTPATIENT VISIT EST Diagnosis: IRREGULAR MENSTRUATION[ICD9: 626.4] Josefa TALAMANTES DO [facility] CPT-4: 03249 11/29/2014 ([id number]) OFFICE/OUTPATIENT VISIT EST Diagnosis: IRREGULAR MENSTRUATION[ICD9: 626.4] Josefa TALAMANTES DO [facility] CPT-4: 39966 09/09/2014 ([id number]) OFFICE/OUTPATIENT VISIT EST Diagnosis: IRREGULAR MENSTRUATION[ICD9: 626.4] Diagnosis: General counseling and advice on contraceptive management[ICD9: V25.09] Diagnosis: Anxiety and depression[ICD9: 300.4] Malgorzata ALANIZ SMaria Teresa TALAMANTES [facility] CPT-4: 52753 06/16/2014 OFFICE/OUTPATIENT VISIT EST Diagnosis: Right upper quadrant pain[ICD9: 789.01] Malgorzata TALAMANTES DO [facility] CPT-4: 18656 01/28/2014 OFFICE/OUTPATIENT VISIT EST Diagnosis: Right upper quadrant pain[ICD9: 789.01] Malgorzata REBOLLARNDNENA [facility] CPT-4: 59744 12/10/2013 OFFICE/OUTPATIENT VISIT EST Diagnosis: Anxiety and depression[ICD9: 300.4] Malgorzata ALANIZ S. KETURAHNDNENA [facility] CPT-4: 67401 10/20/2013 OFFICE/OUTPATIENT VISIT EST Diagnosis: Menorrhagia[ICD9: 626.2] Malgorzata BULL MIGUEL [facility] CPT-4: 80258 10/07/2013 OFFICE/OUTPATIENT VISIT EST Diagnosis: IRREGULAR MENSTRUATION[ICD9: 626.4] Malgorzata ALANIZ SMaria Teresa REBOLLARNDNENA [facility] CPT-4: 53271 09/15/2013 OFFICE/OUTPATIENT VISIT EST Diagnosis: HEMATURIA NOS[ICD9: 599.70] Diagnosis: Abdominal discomfort in right upper quadrant[ICD9: 789.01] Malgorzata TALAMANTES DO [facility] CPT-4: 05921 06/24/2013 ([id number]) OFFICE/OUTPATIENT VISIT EST Diagnosis: ABDOMINAL PAIN[ICD9: 789.00] Diagnosis: GERD[ICD9: 530.81] Josefa TALAMANTES DO [facility] CPT-4: 35275 03/05/2013 OFFICE/OUTPATIENT VISIT EST Diagnosis: General counseling and advice on contraceptive management[ICD9: V25.09] Diagnosis: IRREGULAR MENSTRUATION[ICD9: 626.4] Malgorzata TALAMANTES DO [employer] CPT-4: 54770 02/09/2013 ([id number]) OFFICE/OUTPATIENT VISIT EST Justine TALAMANTES DO [employer] CPT-4: 82223 09/08/2010 ([id number]) OFFICE/OUTPATIENT VISIT EST Justine TALAMANTES DO [employer] CPT-4: 74240 07/24/2010 Plan of Care Planned Activity Notes [...] ICD-9 : 795.00 ICD-10 : R87.619 12/01/2019 Patient Education: Diclegis- [employer] Johana [id number] [email or web address] Completed 12/01/2019 Appointment: Josefa Talamantes WPtel: [address] [phone] [place] INJECTION 11/19/2019 Care Plan: 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 ICD-9 : 616.10 ICD-10 : N76.0 11/16/2019 Visit Diagnosis Plan: Encounter for gyne cological examination (general) (routine) with abnormal findings Discussion: fasting labs to be completed this week at [facility]. order written and given to patient. [...] ICD-10 : R60.0 11/16/2019 Appointment: Keyanna Mejía [address] [place], [place] [address] Annual Well Visit 11/16/2019 Visit Diagnosis Plan: Urethritis Discussion: Diflucan and topical nystatin ICD-9 : 597.80 ICD-10 : N34.2 07/07/2019 Visit Diagnosis Plan: History of renal stone Discussio n: Flomax Push water If not improving within 48hrs or if worsening then will need CT scan to assess for stone ICD-9 : V13.01 ICD-10 : Z87.442 07/07/2019 Appointment: Josefa Talamantes WPtel: [facility] ACUTE ILLNESS 07/07/2019 Patient Education: nystatin- [employer] Coupon [id number] [email or web address] Completed 07/07/2019 Appointment: Josefa Talamantes WPtel: [address] [place], [place] [phone] [place] UA 06/15/2019 Visit Diagnosis Plan: Dysuria Discussion: due to recur rent pain and worsening symptoms, rocephin 1 gm given in office. will send urine off for culture and call on saturday if any changes needed. instructed to push fluids through the w eekend and go to urgent care with any worsening. ICD-9 : 788.1 ICD-10 : R30.0 06/05/2019 Appointment: Keyanna Mejía [address] [place] [address] FOLLOW UP 06/05/2019 Visit Diagnosis Plan: Left [...] ICD-10 : M25.532 03/16/2019 Appointment: Keyanna Mejía [address] [place] [address] Hospital Follow Up 03/16/2019 Appointment: Josefa Talamantes WPtel: [address] [place], [place] [phone] [place] UA 03/02/2019 Appointment: Josefa Talamantes WPtel: [address] [place], [place] [phone] [place] INJECTION 02/16/2019 Appointment: Josefa Talamantes WPtel: [address] [place], [place] [phone] [place] INJECTION 05/21/2018 Visit Diagnosis Plan: Nontoxic [...] performed in office and negative. 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 [...] ICD-10 : K13.0 03/03/2018 Appointment: Keyanna Mejía [address] [place] [address] [place] ACUTE ILLNESS 03/03/2018 Patient Education: Patient Medication Summary Completed 03/03/2018 Care Plan: US EXAM OF HEAD AND NECK thyroid LOIN C : 49142-9 Pending 03/03/2018 Appointment: Josefa Talamantestel: [address] [place], [place] [phone] [place] CANCELED 02/27/2018 Appointment: Josefa Talamantes WPtel: [address] [place], [place] [phone] [place] INJECTION 11/26/2017 Patient Education: Patient Medication Summary Completed 11/26/2017 Appointment: Josefa Talamantes WPtel: [address] [place], [place] [phone] [place] INJECTION 08/27/2017 Patient Education: Patient Medication Summary Completed 08/27/2017 Appointment: Josefa Talamantes WPtel: [address] [place], [place] [phone] [place] INJECTION 06/06/2017 Patient Education: Patient Medication Summary Completed 06/06/2017 App[facility]ment: [phone] [facility] [place] [facility] 01/04/2017 Patient Education: Patient Medication Summary Completed 01/04/2017 Appointment: Jose[facility] [place] 11/19 lm `sl 11/21 lm `sl NO SHOW 11/22/19 17 Patient Education: Patient Medication Summary Completed 10/22/2016 Care Plan: US EXAM OF HEAD AND NECK Thyroid Ultrasound LOIN C : 66910-3 Pending 10/22/2016 Visit Diagnosis Plan: Gastro-esophageal reflux [...] : R13.13 10/18/2016 Appointment: Josefa Talamantes WPtel: [address] [place], [place] [id number] [place] 6 lm `sl Annual Well Visit 10/18/2016 Patient Education: Patient Medication Summary Completed 10/18/2016 Appointment: [facility]el[facility] [phone] [facility] [place] [facility]JECTION 10/12/2016 Patient Education: Patient Medication Summary Completed 10/12/2016 Visit Diagnosis Plan: Influenza due to i dentified novel influenza A virus with other respiratory manifestations Discussion: Flu A positive Rx as above Supportive care otherwise Contagious precautions discussed Notify kids' provider of exposure for their instructions ICD-9 : 488.02 ICD-10 : J09.X2 08/08/2016 Appointment: Catrina Bran [address] [facility] [place] ACUTE ILLNESS 08/08/2016 Patient Education: Patient Medication Summary Completed 08/08/2016 Appointment: Josefa Talamantes WPtel: [address] [place], [place] [id number] [place] INJECTION 07/25/2016 Patient Education: Patient Medication Summary Completed 07/25/2016 Visit Plan: Finish abx and then recultur e 48hrs after completion Add levsin and zorvolex 05/15/2016 Appointment: Josefa Talamantes WPtel: [address] [place], [place] [id number] [place] / lm ` 05/15 confirmed~ Hospital Follow Up 0 05/15/2016 Patient Education: Patient Medication Summary Completed 05/15/2016 Appointment: Catrina Bran [address] [place] [id number] 05/09 admitted into the hospital last night~ ACUTE ILLNESS 05/09/2016 Appointment: Josefa Talamantes WPtel: [address] [place] [id number] [place] INJECTION 05/03/2016 Patient Education: Patient Medication Summary Completed 05/03/2016 Appointment: Josefa Talamantes WPtel: [address] [place] [id number] [place] INJECTION 02/20/2016 Patient Education: Patient Medication Summary Completed 02/20/2016 Visit Plan: ERx for Bactrim and Bactroba n Called to [facility] Ultram 50mg 1 po q 4-6 hours prn pain #20 Warm moist heat to area qid Watch for s/s of worsening, go to UC over weekend Discussed SE of meds including s/s of SJS which would require an ER visit C&S obtained 12/23/2015 Appointment: Kitty Caldera WPtel: [address] [place], [place] [phone] [place] ACUTE ILLNESS 12/23/2015 Patient Education: Patient Medication Summary Completed 12/23/2015 Appointment: Josefa Talamantes WPtel: [address] [place], [place] [phone] [place] INJECTION 11/07/2015 Patient Education: Patient Medication Summary Completed 11/07/2015 Appointment: Josefa Talamantes WPtel: [address] [place], [place] [phone] [place] INJECTION 08/01/2015 Patient Education: Patient Medication Summary Completed 08/01/2015 Appointment: Josefa Talamantes WPtel: [address] [place], [place] [phone] [place] INJECTION 05/11/2015 Patient Education: Patient Medication Summary Completed 05/11/2015 Appointment: Malgorzata Islas WPtel: [address] [place], [place] [phone] [place] PAP 04/05/2015 Appointment: Josefa Talamantes WPtel: [address] [place], [place] [phone] [place] INJECTION 02/16/2015 Patient Education: Patient Medication Summary Completed 02/16/2015 Visit Plan: Daily nasal saline rinses Fl onase nasal spray and daily Zyrtec Medrol dose pack Z-jhonathan as directed 01/26/2015 Appointment: Malgorzata Islas WPtel: [address] [place], [place] [phone] [place] ACUTE ILLNESS 01/26/2015 Patient Education: Patient Medication Summary Completed 01/26/2015 Appointment: Josefa Talamantes WPtel: [address] [place], [place] [phone] [place] INJECTION 11/29/2014 Patient Education: Patient Medication Summary Completed 11/29/2014 Appointment: Josefa Talamantes WPtel: [address] [place], [place] [phone] [place] INJECTION 09/09/2014 Patient Education: Patient Medication Summary Completed 09/09/2014 Appointment: Malgorzata Islas WPtel: [address] [place], [place] [phone] [place] FOLLOW UP 06/16/2014 Patient Education: Patient Medication Summary Completed 06/16/2014 Appointment: Malgorzata Islas WPtel: [address] [place] [phone] 06/02/14 appointment scheduled 06/03/14 no showed PAP 06/03/2014 Appointment: RichFabricioRolandosa Reese WPtel: [address] [place] [phone] FOLLOW UP 01/28/2014 Patient Education: Patient Medication Summary Completed 01/28/2014 Care Plan: [place] : [address]-4 Ordered 01/28/2014 Care Plan: AMYLASE Pending 4 Appointment: Malgorzata Islas WPtel: [address] [place], [place] [phone] [place] FOLLOW UP 12/10/2013 Patient Education: Patient Medication Summary Completed 12/10/2013 Appointment: Malgorzata Islas WPtel: [address] [place], [place] [phone] 11/11 vm 11/12 No Show FOLLOW UP 11/12/2013 Appointment: Malgorzata Islas WPtel: [address] [place], [place] [phone] FOLLOW UP 10/20/2013 Patient Education: Patient Medication Summary Completed 10/20/2013 Visit Plan: Quantitative Hcg and CBC tod ay. Transvaginal/Transabdominal sonogram stat Discussed with [employer] and [facility] 343 so will recheck in 1week as long as not worsening 10/07/2013 Appointment: Malgorzata Islas WPtel: [address] [place], [place] [phone] ACUTE ILLNESS 10/07/2013 Patient Education: Patient Medication Summary Completed 10/07/2013 Appointment: Malgorzata Islas WPtel: [address] [place], [place] [phone] ACUTE ILLNESS 09/15/2013 Patient Education: Patient Medication Summary Completed 09/15/2013 Appointment: Malgorzata Islas WPtel: [address] [place], [place] [phone] ACUTE ILLNESS 06/24/2013 Patient Education: Patient Medication Summary Completed 06/24/2013 Appointment: Malgorzata Islas WPtel: [address] [place] [address] appt was scheduled today then patient no showed the visit ACUTE ILLNESS 05/21/2013 Visit Plan: Check CMP, CBC, UA CT scan o f abdomen Omeprazole 03/05/2013 Appointment: Josefa Talamantes WPtel: [address] [place] [address] ACUTE ILLNESS 03/05/2013 Appointment: Josefa Talamantes WPtel: [address] [place] [address] 03/02 canceled, wrong patient FOLLOW UP Patient Education: Patient Medication Summary Completed 03/05/2013 Appointment: Malgorzata Islas WPtel: [address] [place] [address] ACUTE ILLNESS 02/09/2013 Patient Education: Patient Medication Summary Completed 02/09/2013 Appointment: Justine Ortega WPtel: [address] [place] [address] ACUTE ILLNESS 09/08/2010 Patient Education: Patient Medication Summary Completed 09/08/2010 Appointment: Justine Ortega WPtel: [address] [place] [address] PAP 08/08/2010 Appointment: Justine Ortega WPtel: [address] [place] [address] ACUTE ILLNESS 07/24/2010 Patient Education: Patient Medication Summary Completed 07/24/2010 Visit Plan: All warts shaved with 11-rekha de scalpel and then cryotherapy x3 Will followup with DNCB treatment 03/08/2010 Appointment: Josefa Talamantes WPtel: [address] [place] [address] ACUTE ILLNESS 03/08/2010 Patient Education: Patient Medication Summary Completed 03/08/2010 Appointment: Josefa Talamantes WPtel: [address] [id number] [place] PAP 09/14/2009 Referral: Roney Galloway WPtel: [address] [facility] 3 [id number] [place] Referral Initiated Referral: Mariel Brian Reese WPtel: [address] [id number] [place] Referral Initiated Referral: Referral Initiated Instructions [...] CBC today. Transvaginal/Transabdominal sonogram stat Discussed with [employer] and [facility] 343 so will recheck in [...]
--- OUTSIDE RECORDS SUMMARY | 2019-12-11 21:56 | XMS REPORT | CCD ---
Author Author Brenda Talamantes D.O. Organization [facility] Address [address] [place] [address] Phone Care Team Providers Care Cullet Crusher Name Role Phone Josefa Talamantes D.O., PP Unavailable CCM Unavailable Summary Purpose Interface Exchange Insurance Providers Payer name Policy type / Coverage type Covered libertarian ID Effective Begin Date Effective End Date [facility] Commercial Insurance [id number] Unknown Family History Family History data not found Social History Social History Element Codes Description Effective Dates Tobacco history SNOMED CT: 821879361 Unknown if ever smoked 01/12 Allergies, Adverse [...] Diclegis 10 mg-10 mg tablet,delayed release RxNorm: 6014193 2 Tablet(s) Oral QPM 12/01/2019 12/01/2019 Inactive vitamin E 400 unit capsule RxNorm: 481066 1 Capsule(s) Oral QD 11/10 No Stop Date Active metronidazole 500 mg tablet RxNorm: 109286 1 Tablet(s) Oral two times a day 11/17/2019 11/16/2019 Inactive metronidazole 500 mg tablet RxNorm: 612738 1 Tablet(s) Oral two times a day 11/17/2019 11/24/2019 Inactive Depo-Provera 150 mg/mL intramuscular suspension RxNorm: 1000 128 1 Application Intramuscular 11/16/2019 No Stop Date Active Diflucan 100 mg tablet RxNorm: 657561 1 Tablet(s) Oral QD 07/07/2019 07/14/2019 Inactive Flomax 0.4 mg capsule RxNorm: 500916 1 Capsule(s) Oral QPM for kidney stone 07/07/2019 08/06/2019 Inactive nystatin 100,000 unit/gram topical cream RxNorm: 476505 Application Topical two times a day to periurethral area 07/07/2019 11/16/2019 Inactive Bactrim DS 800 mg-160 mg tablet RxNorm: 744573 1 Tablet(s) Oral two times a day 06/08/2019 06/13/2019 Inactive Bactrim DS 800 mg-160 mg tablet RxNorm: 672938 1 Tablet(s) Oral two times a day 06/08/2019 06/07/2019 Inactive ibuprofen 800 mg tablet RxNorm: 475286 1 Tablet(s) Oral Q8H as needed 03/16/2019 06/05/2019 Inactive Cipro 500 mg tablet RxNorm: 986628 1 Tablet(s) Oral two times a day 03/04/2019 03/11/2019 Inactive Cipro 500 mg tablet RxNorm: 687462 1 Tablet(s) Oral two times a day 03/04/2019 03/03/2019 Inactive Macrobid 100 mg capsule RxNorm: 856058 1 Capsule(s) Oral two ti mes a day 02/16/2019 02/15/2019 Inactive Macrobid 100 mg capsule RxNorm: 693170 1 Capsule(s) Oral two ti mes a [...] 11/24/2017 Inactive Pepcid 40 mg tablet RxNorm: 652585 1 Tablet(s) PO QD 10/18/201603/02 Inactive Depo-Provera 150 mg/mL intramuscular suspension RxNorm: 1000 128 Milliliter(s) 1 Milliliter(s) IM 10/10/2016 06/04/2017 Inactive Tamiflu 75 mg capsule RxNorm: 084458 1 Capsule(s) PO BID 08/08/2016 0 08/12/2016 Inactive Levsin 0.125 mg tablet RxNorm: 8217135 1 Tablet(s) PO TID for fl ank pain 05/15/2016 10/17/2016 Inactive Bactrim DS 800 mg-160 mg tablet RxNorm: 973263 1 Tablet(s) PO BID 0 12/23/2015 01/01/2016 Inactive mupirocin 2 % topical ointment RxNorm: 133653 Application TOP TID 0 12/23/2015 12/29/2015 Inactive Depo-Provera 150 mg/mL intramuscular suspension RxNorm: 1000 128 Milliliter(s) 1 Milliliter(s) IM 11/08/2015 10/09/2016 Inactive Xanax 0.25 mg tablet RxNorm: 179828 TAKE ONE-HALF TO ON E TABLET BY MOUTH NEEDED FOR ANXIETY 04/11/2015 05/10/2015 Inactive Generic For:X ANAX 0.25 MG TABLET 04/11/2015 2:54:57 PM Depo-Provera 150 mg/mL intramuscular suspension RxNorm: 1000 128 Milliliter(s) 1 Milliliter(s) IM 02/15/2015 11/07/2015 Inactive azithromycin 250 mg tablet RxNorm: 804201 2 Tablet(s) P O today, then one tablet on days 2 - 5 01/26/2015 12/22/2015 Inactive Medrol (Jhonathan) 4 mg tablets in a dose pack RxNorm: 620497 Tablet(s) P O 01/26/2015 12/22/2015 Inactive Depo-Provera 150 mg/mL intramuscular suspension RxNorm: 1000 128 1 Milliliter(s) IM 09/06/2014 02/15/2015 Inactive Xanax 0.25 mg tablet RxNorm: 723846 1/2 - 1 Tablet(s) PO as nee ded for anxiety 06/16/2014 04/12/2015 Inactive Zoloft 50 mg tablet RxNorm: 401868 1 Tablet(s) PO QD 06/16/201412/21 Inactive Flexeril [...] 2014 Inactive Xanax 0.25 mg tablet RxNorm: 092204 1/2 - 1 Tablet(s) PO as nee ded for anxiety 01/28/2014 06/15/2014 Inactive naproxen 500 mg tablet RxNorm: 270614 1 Tablet(s) PO BID 12/10/2013 0 01/08/2014 Inactive Zoloft 50 mg tablet RxNorm: 065700 1 Tablet(s) PO QD 12/10/201304/08 Inactive Xanax 0.25 mg tablet RxNorm: 785023 1/2 - 1 Tablet(s) PO as nee ded for anxiety 12/10/2013 01/27/2014 Inactive Xanax 0.25 mg tablet RxNorm: 839383 1 Tablet(s) PO Q8H 10/20/2013 Inactive Zoloft 50 mg tablet RxNorm: 919197 1/2 Tablet(s) PO x 6 days then on1 tablet daily 10/20/2013 11/18/2013 Inactive Loestrin Fe 06/01 (28) 1 mg-20 mcg tablet RxNorm: 0999215 1 Table t(s) PO QD 10/20/2013 05/03/2014 Inactive phenazopyridine 100 mg tablet RxNorm: 8588509 1 Tablet(s) PO Q8H 06/26/2013 Inactive Macrobid 100 mg capsule RxNorm: 423425 1 Capsule(s) PO BID 06/25/19 14 07/04/2013 Inactive phenazopyridine 100 mg tablet RxNorm: 8117147 1 Tablet(s) PO Q8H 06/24/2013 Inactive Macrobid 100 mg capsule RxNorm: 828528 1 Capsule(s) PO BID 07/25/19 11 08/02/2010 Inactive Apri 0.15 mg-30 mcg tablet RxNorm: 445907 1 Tablet(s) PO QD As directed. No Start Date 06/23/2013 Inactive omeprazole 40 mg capsule,delayed release RxNorm: 374014 1 Capsule(s) PO QD for stomach No Start Date 06/23/2013 Inactive naproxen 500 mg tablet RxNorm: 015589 1 Tablet(s) PO BID No Start D ate 06/15/2014 Inactive hydrocodone 10 mg-acetaminophen 325 mg tablet RxNorm: 224581 Tablet(s) PO as needed for pain No Start Date 12/22/2015 Inactive Zoloft 50 mg tablet RxNorm: 131107 1 Tablet(s) PO QD No Start Date Inactive hydrocodone 5 mg-acetaminophen 325 mg tablet RxNorm: 030035 1 Tablet(s) PO QID as needed for pain No Start Date 09/14/2013 Inactive Medication Administered No Medication Administered data Immunizations No Immunization data Results Observation Observation Code Item Item Code Result Date S ervice Location V [facility] [id number] Whiff TNP:Duplicate Order 11/17/19 20 Unknown V [facility] [id number] WBC Vaginal TNP:Duplicate Order 2019 Unknown V [facility] [id number] [employer] Lactobac TNP:Duplicate Order 2019 Unknown V [facility] [id number] Clue Cells TNP:Duplicate Order 020 Unknown V [facility] [id number] [employer] Curved GNR TNP:Duplicate Order 11/2019 Unknown V [facility] [id number] Yeast Vaginal TNP:Duplicate Order 11/2019 Unknown V PROF SWB [id number] [employer] SM GVB TNP:Duplicate Order 11/17/19 20 Unknown V PROF SWB [id number] [employer] Swb Trich Ag TNP:Duplicate Order Unknown V PROF SWB [id number] [employer] BV Stain TNP:Duplicate Order 2019 Unknown V PROF SWB [id number] [employer] Interp TNP:Duplicate Order 11/17/19 20 Unknown V PROF SWB [id number] Conf BV Stain TNP:Duplicate Order 11/2019 Unknown V PROF SWB [id number] Whiff Positive 11/17/2019 Unknown V PROF SWB [id number] WBC Vaginal Few 11/17/2019 Unknow n V PROF SWB [id number] Clue Cells >20% 11/17/2019 Unknown V PROF SWB [id number] Yeast Vaginal None 11/17/2019 Unkn own V PROF SWB [id number] [employer] Swb Trich Ag Negative 11/17/2019 Un known V PROF SWB [id number] [employer] BV Stain 10 11/17/2019 Unknow n V PROF SWB [id number] [employer] Interp Results indicate Bacteria l Vaginosis Syndrome. 11/17/2019 Unknown VAG PROF [id number] PH TNP:Improper Specimen 020 Unknown VAG PROF [id number] Whiff TNP:Improper Specimen 020 Unknown VAG PROF [id number] WBC Vaginal TNP:Improper Specimen 11/15 Unknown VAG PROF [id number] [employer] Lactobac TNP:Improper Specimen 11/15 Unknown VAG PROF [id number] Clue Cells TNP:Improper Specimen 2019 Unknown VAG PROF [id number] [employer] Curved GNR TNP:Improper Specimen 10/2019 Unknown VAG PROF [id number] Yeast Vaginal TNP:Improper Specimen 10/2019 Unknown VAG PROF [id number] [employer] SM GVB TNP:Improper Specimen 020 Unknown VAG PROF [id number] Trichomonas TNP:Improper Specimen 11/15 Unknown VAG PROF [id number] [employer] BV Stain TNP:Improper Specimen 11/15 Unknown VAG PROF [id number] [employer] Intp TNP:Improper Specimen 020 Unknown VAG PROF [id number] Conf BV Stain TNP:Improper Specimen 10/2019 Unknown LIPASE 58437 LIPASE 14 IU/L 01/28/2014 Unknown COMPLETE BLOOD COUNT [id number] WBC 6.5 10e9/L 01/29/20 14 Unknown COMPLETE BLOOD COUNT [id number] RBC 4.54 10e12/L 2013 Unknown COMPLETE BLOOD COUNT [id number] HGB 12.1 g/dL 4 Unknown COMPLETE BLOOD COUNT [id number] HCT DET 38.0 % 4 Unknown COMPLETE BLOOD COUNT [id number] MCV 83.7 fL 4 Unknown COMPLETE BLOOD COUNT [id number] MCH 26.7 pg 4 Unknown COMPLETE BLOOD COUNT [id number] MCHC 31.8 g/dL 4 Unknown COMPLETE BLOOD COUNT [id number] PLT 218 10e9/L 01/29/20 14 Unknown COMPLETE BLOOD COUNT [id number] MPV 12.8 fL 4 Unknown COMPLETE BLOOD COUNT [id number] RACHNA % 56.5 % 4 Unknown COMPLETE BLOOD COUNT [id number] LY % 32.3 % 4 Unknown COMPLETE BLOOD COUNT [id number] MON % 8.6 % 4 Unknown COMPLETE BLOOD COUNT [id number] EOS % 2.1 % 4 Unknown COMPLETE BLOOD COUNT [id number] BASO % 0.5 % 4 Unknown COMPLETE BLOOD COUNT [id number] RDW 18.4 % 4 Unknown COMPLETE BLOOD COUNT [id number] ABS RACHNA 3.67 10e9/L 014 Unknown COMPLETE BLOOD COUNT [id number] ABS LYMPH 2.10 10e9/L 014 Unknown COMPLETE BLOOD COUNT [id number] ABS MONO 0.56 10e9/L 014 Unknown COMPLETE BLOOD COUNT [id number] ABS EOS 0.14 10e9/L 014 Unknown COMPLETE BLOOD COUNT [id number] ABS BASO 0.03 10e9/L 014 Unknown COMPLETE BLOOD COUNT [id number] RDW-SD 55.5 fL 4 Unknown COMPREHENSIVE METABOLIC 55736 AST 13 U/L 2013 Unknown COMPREHENSIVE METABOLIC 59264 ALT 7 IU/L 2013 Unknown COMPREHENSIVE METABOLIC 38411 BUN 8 MG/DL 2013 Unknown COMPREHENSIVE METABOLIC 42211 ALBUMIN 4.5 GM/DL 2013 Unknown COMPREHENSIVE METABOLIC 21884 CHLORIDE 106 MMOL/L 01/28 Unknown COMPREHENSIVE METABOLIC 01044 BILI TOT 0.4 MG/DL 2013 Unknown COMPREHENSIVE METABOLIC 89495 ALK PHOS 55 U/L 2013 Unknown COMPREHENSIVE METABOLIC 72946 SODIUM 138 MMOL/L 01/28 Unknown COMPREHENSIVE METABOLIC 42954 CREATININE 0.73 MG/DL 01/11 Unknown COMPREHENSIVE METABOLIC 80086 CALCIUM 9.9 MG/DL 2013 Unknown COMPREHENSIVE METABOLIC 77150 POTASSIUM 3.8 MMOL/L 01/28 Unknown COMPREHENSIVE METABOLIC 89171 PROT TOT 7.4 GM/DL 2013 Unknown COMPREHENSIVE METABOLIC 03907 Glucose 96 MG/DL 2013 Unknown COMPREHENSIVE METABOLIC 70743 BICARB 27 MMOL/L 2013 Unknown COMPREHENSIVE METABOLIC 32568 ANION GAP 5 MEQ/L 2013 Unknown AMYLASE 66609 AMYLASE 42 IU/L 01/28/2014 Unknown GFR CALC [id number] GFR AA >60 ML/MIN 01/28/2014 Unknown GFR CALC [id number] GFR NON-AA >60 ML/MIN 01/28/2014 Unknown Procedures Procedure Codes Date URINE TEST CPT-4: 74580 12/01/2019 THER/PROPH/DIAG INJ SC/IM CPT-4: 82851 11/19/2019 URINE TEST CPT-4: 03740 11/16/2019 SPECIMEN HANDLING OFFICE-LAB CPT-4: 09304 11/16/2019 URINE CULTURE/ COLONY COUNT CPT-4: 03918 06/15/2019 URINALYSIS NONAUTO W/O SCOPE CPT-4: 45633 06/05/2019 CEFTRIAXONE SODIUM INJECTION CPT-4: J0696 06/05/2019 THER/PROPH/DIAG INJ SC/IM CPT-4: 36868 06/05/2019 URINE CULTURE/ COLONY COUNT CPT-4: 84184 06/05/2019 URINE CULTURE/ COLONY COUNT CPT-4: 55499 03/02/2019 THER/PROPH/DIAG INJ SC/IM CPT-4: 55056 02/16/2019 URINE CULTURE/ COLONY COUNT CPT-4: 75290 02/16/2019 URINALYSIS NONAUTO W/O SCOPE CPT-4: 00539 02/16/2019 URINE TEST CPT-4: 77554 02/16/2019 THER/PROPH/DIAG INJ SC/IM CPT-4: 48543 05/21/2018 THER/PROPH/DIAG INJ SC/IM CPT-4: 84866 11/26/2017 THER/PROPH/DIAG INJ SC/IM CPT-4: 39471 08/27/2017 THER/PROPH/DIAG INJ SC/IM CPT-4: 33584 06/06/2017 URINALYSIS NONAUTO W/O SCOPE CPT-4: 45013 06/06/2017 GC/CHLAMYDIA DNA ([facility]) CPT-4: 41352|98520 8 URINE CULTURE/ COLONY COUNT CPT-4: 68004 06/06/2017 THER/PROPH/DIAG INJ SC/IM CPT-4: 89432 01/04/2017 SPECIMEN HANDLING OFFICE-LAB CPT-4: 19233 10/18/2016 THER/PROPH/DIAG INJ SC/IM CPT-4: 58518 10/12/2016 INFLUENZA ASSAY W/OPTIC CPT-4: 06540 08/08/2016 THER/PROPH/DIAG INJ SC/IM CPT-4: 22125 07/25/2016 THER/PROPH/DIAG INJ SC/IM CPT-4: 22931 05/03/2016 THER/PROPH/DIAG INJ SC/IM CPT-4: 29007 02/20/2016 URINE TEST CPT-4: 73032 02/20/2016 AEROBIC WOUND CULTURE & STN CPT-4: 42203 12/23/2015 THER/PROPH/DIAG INJ SC/IM CPT-4: 63426 11/07/2015 URINE TEST CPT-4: 10040 11/07/2015 THER/PROPH/DIAG INJ SC/IM CPT-4: 67270 08/01/2015 THER/PROPH/DIAG INJ SC/IM CPT-4: 74181 05/11/2015 THER/PROPH/DIAG INJ SC/IM CPT-4: 10659 02/16/2015 THER/PROPH/DIAG INJ SC/IM CPT-4: 25799 11/29/2014 THER/PROPH/DIAG INJ SC/IM CPT-4: 83008 09/09/2014 URINE TEST CPT-4: 97445 06/16/2014 THER/PROPH/DIAG INJ SC/IM CPT-4: 08880 06/16/2014 ROUTINE VENIPUNCTURE CPT-4: 29622 10/07/2013 COMPLETE CBC W/AUTO DIFF WBC CPT-4: 13519 10/07/2013 CHORIONIC GONADOTROPIN TEST CPT-4: 34427 10/07/2013 URINE TEST CPT-4: 08766 09/15/2013 URINALYSIS NONAUTO W/O SCOPE CPT-4: 06683 06/24/2013 URINE CULTURE/ COLONY COUNT CPT-4: 97179 06/24/2013 URINE TEST CPT-4: 17656 09/08/2010 URINALYSIS NONAUTO W/O SCOPE CPT-4: 46762 07/24/2010 URINE CULTURE/ COLONY COUNT CPT-4: 65459 07/24/2010 DESTRUCT PREMALG LESION (Cryosurgery) CPT-4: 31912 DESTRUCT PREMALG LES 2-14 CPT-4: 97375 03/08/2010 Vital Signs Date Vital 12/01/2019 Blood Pressure 1: 128/78 Code: 8480-6 Heart Rate 1: 80 bpm Respiratory Rate: 16 bpm SpO2: 98% Temperature: 36.7 (C) / 98.0 (F) We ight: 161 lbs 11/16/2019 Blood Pressure 1: 119/75 Code: 8480-6 BMI: 24.4 Code: 89786-3 Heart Rate 1: 112 bpm Height: 5'9" Respiratory Rate: 15 bpm SpO2: 98% Tempera ture: 36.8 (C) / 98.2 (F) Weight: 165 lbs 07/07/2019 Blood Pressure 1: 126/82 Code: 8480-6 Heart Rate 1: 100 bpm SpO2: 99% Temperature: 36.8 (C) / 98.2 (F) 06/05/2019 Blood Pressure 1: 131/82 Code: 8480-6 BMI: 26.3 Code: 06721-9 Heart Rate 1: 109 bpm Height: 5'9" Respiratory Rate: 16 bpm SpO2: 99% Tempera ture: 36.7 (C) / 98.1 (F) Weight: 178 lbs 03/16/2019 Blood Pressure 1: 132/86 Code: 8480-6 Heart Rate 1: 73 bpm SpO2: 99% Temperature: 36.6 (C) / 97.9 (F) Weight: 158 lbs 03/03/2018 Blood Pressure 1: 120/88 Code: 8480-6 BMI: 23.9 Code: 01138-0 Heart Rate 1: 81 bpm Height: 5'9" Respiratory Rate: 18 bpm SpO2: 99% Tempera ture: 36.1 (C) / 97.0 (F) Weight: 162 lbs 10/18/2016 Blood Pressure 1: 108/ Code: 8480-6 BMI: 22.6 Code: 20493-3 Heart Rate 1: 100 bpm Height: 5'9" Respiratory Rate: 20 bpm SpO2: 98% Tempera ture: 37.1 (C) / 98.8 (F) Weight: 153 lbs 08/08/2016 Blood Pressure 1: 114/ Code: 8480-6 Heart Rate 1: 102 bpm Respiratory Rate: 20 bpm SpO2: 98% Temperature: 36.4 (C) / 97.6 (F) We ight: 152 lbs 05/15/2016 Blood Pressure 1: 124/80 Code: 8480-6 BMI: 23.2 Code: 90580-7 Heart Rate 1: 100 bpm Height: 5'9" Respiratory Rate: 20 bpm Temperature: 37 .0 (C) / 98.6 (F) Weight: 157 lbs 12/23/2015 Blood Pressure 1: 124/78 Code: 8480-6 BMI: 23.0 Code: 17553-8 Heart Rate 1: 92 bpm Height: 5'9" Respiratory Rate: 20 bpm SpO2: 97% Tempera ture: 36.9 (C) / 98.5 (F) Weight: 156 lbs 01/26/2015 Blood Pressure 1: 118/78 Code: 8480-6 BMI: 21.3 Code: 39484-3 Heart Rate 1: 100 bpm Height: 5'9" Respiratory Rate: 20 bpm SpO2: 97% Tempera ture: 36.6 (C) / 97.8 (F) Weight: 144 lbs 06/16/2014 Blood Pressure 1: 118/78 Code: 8480-6 BMI: 23.5 Code: 62756-9 Heart Rate 1: 78 bpm Height: 5'9" Respiratory Rate: 18 bpm Temperature: 36 .1 (C) / 97.0 (F) Weight: 159 lbs 01/28/2014 Blood Pressure 1: 124/78 Code: 8480-6 BMI: 23.2 Code: 94167-9 Heart Rate 1: 88 bpm Height: 5'9" Respiratory Rate: 22 bpm Temperature: 36 .1 (C) / 97.0 (F) Weight: 157 lbs 12/10/2013 Blood Pressure 1: 124/70 Code: 8480-6 BMI: 23.0 Code: 38833-2 Heart Rate 1: 82 bpm Height: 5'9" Respiratory Rate: 20 bpm Temperature: 36 .2 (C) / 97.2 (F) Weight: 156 lbs 10/20/2013 Blood Pressure 1: 118/82 Code: 8480-6 Heart Rate 1: 84 bpm Respiratory Rate: 22 bpm Temperature: 36.5 (C) / 97.7 (F) Weight: 150 lbs 10/07/2013 Blood Pressure 1: 120/80 Code: 8480-6 BMI: 22.2 Code: 44973-9 Heart Rate 1: 68 bpm Height: 5'9" Respiratory Rate: 22 bpm Temperature: 36 .2 (C) / 97.2 (F) Weight: 150 lbs 09/15/2013 Blood Pressure 1: 118/68 Code: 8480-6 BMI: 22.0 Code: 92984-2 Heart Rate 1: 78 bpm Height: 5'9" Respiratory Rate: 20 bpm Temperature: 36 .1 (C) / 97.0 (F) Weight: 149 lbs 06/24/2013 Blood Pressure 1: 112/74 Code: 8480-6 Heart Rate 1: 74 bpm Respiratory Rate: 20 bpm Temperature: 36.6 (C) / 97.9 (F) Weight: 150 lbs 03/05/2013 Blood Pressure 1: 126/88 Code: 8480-6 BMI: 23.5 Code: 92182-9 Heart Rate 1: 80 bpm Height: 5'9" Respiratory Rate: 20 bpm Temperature: 36 .6 (C) / 97.9 (F) Weight: 159 lbs 02/09/2013 Blood Pressure 1: 110/68 Code: 8480-6 BMI: 21.9 Code: 49160-2 Heart Rate 1: 74 bpm Height: 5'9" Respiratory Rate: 22 bpm Temperature: 36 .8 (C) / 98.2 (F) Weight: 148 lbs 09/08/2010 Blood Pressure 1: 124/90 Code: 8480-6 BMI: 21.4 Code: 00891-1 Height: 5'10" Temperature: 36.4 (C) / 97.6 [...] painful Encounters Encounter Performer Location Codes Date ([id number]) OFFICE/OUTPATIENT VISIT EST Diagnosis: Amenorrhea[ICD10: N91.2] Diagnosis: [ICD10: Z34.90] Diagnosis: Abnormal Pap smear of cervix[ICD10: R87.619] Diagnosis: Nausea[ICD10: R11.0] Diagnosis: related nausea, antepartum[ICD10: O26.899] Keyanna HELMS [employer] Teresa StartDate [facility] [employer] CPT-4: 28108 12/01/2019 ([id number]) NURSE/OUTPATIENT VISIT EST Diagnosis: Irregular menstruation, unspecified[ICD10: N92.6] Josefa Connors StartDate LabsMARC[facility] [employer] [facility] CPT-4: 56036 11/19/2019 ([id number]) PREV VISIT EST AGE 18-39 Diagnosis: Encounter for gynecological examination (general) (routine) with abnormal findings[ICD10: Z01.411] Diagnosis: Encounter for general adult medical examination without abnormal findings[ICD10: Z00.00] Diagnosis: Vaginitis[ICD10: N76.0] Diagnosis: Left breast mass[ICD10: N63.20] Diagnosis: Dense breast tissue[ICD10: R92.2] Diagnosis: Bilateral lower extremity edema[ICD10: R60.0] Diagnosis: control counseling[ICD10: Z30.09] Keyanna [facility] [facility] CPT-4: 17277 11/16/2019 ([id number]) OFFICE/OUTPATIENT VISIT EST Diagnosis: Urethritis[ICD10: N34.2] Diagnosis: History of renal stone[ICD10: Z87.442] [facility] CPT-4: 95624 07/07/2019 ([id number]) NURSE/OUTPATIENT VISIT EST Diagnosis: Urinary tract infection[ICD10: N39.0] [facility] CPT-4: 92076 06/15/2019 ([id number]) OFFICE/OUTPATIENT VISIT EST Diagnosis: Dysuria[ICD10: R30.0] Diagnosis: Pelvic pain in female[ICD10: R10.2] Keyanna [facility] CPT-4: 38228 06/05/2019 ([id number]) OFFICE/OUTPATIENT VISIT EST Diagnosis: Left wrist pain[ICD10: M25.532] Diagnosis: Swelling of left upper extremity[ICD10: M79.89] Keyanna [facility] CPT-4: 18058 03/16/2019 ([id number]) NURSE/OUTPATIENT VISIT EST Diagnosis: Urinary tract infection[ICD10: N39.0] Josefa [facility] CPT-4: 57888 03/02/2019 ([id number]) NURSE/OUTPATIENT VISIT EST Diagnosis: Irregular menstruation, unspecified[ICD10: N92.6] Diagnosis: Urinary tract infection[ICD10: N39.0] [facility] CPT-4: 07810 02/16/2019 ([id number]) NURSE/OUTPATIENT VISIT EST Diagnosis: Irregular menstruation, unspecified[ICD10: N92.6] Josefa [facility] CPT-4: 83694 05/21/2018 ([id number]) OFFICE/OUTPATIENT VISIT EST Diagnosis: Irregular menstruation, unspecified[ICD10: N92.6] Diagnosis: Diseases of lips[ICD10: K13.0] Diagnosis: 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] Keyanna [facility] CPT-4: 99299 03/03/2018 ([id number]) NURSE/OUTPATIENT VISIT EST Diagnosis: Irregular menstruation, unspecified[ICD10: N92.6] Josefa [facility] CPT-4: 81704 11/26/2017 ([id number]) OFFICE/OUTPATIENT VISIT EST Diagnosis: Irregular menstruation, unspecified[ICD10: N92.6] Josefa [facility] CPT-4: 28816 08/27/2017 ([id number]) OFFICE/OUTPATIENT VISIT EST Diagnosis: Dysuria[ICD10: R30.0] Diagnosis: Irregular menstruation, unspecified[ICD10: N92.6] [facility]fa [facility] CPT-4: 57769 06/06/2017 ([id number]) OFFICE/OUTPATIENT VISIT EST Diagnosis: Irregular menstruation, unspecified[ICD10: N92.6] Josefa [facility] CPT-4: 82938 01/04/2017 ([id number]) PREV VISIT EST AGE 18-39 Diagnosis: Encounter for general adult medical examination without abnormal findings[ICD10: Z00.00] Diagnosis: Encounter for gynecological examination (general) (routine) without abnormal findings[ICD10: Z01.419] Diagnosis: Gastro-esophageal reflux disease without esophagitis[ICD10: K21.9] Diagnosis: Dysphagia, pharyngeal phase[ICD10: R13.13] Josefa TALAMANTES [employer] [facility] CPT-4: 05699 10/18/2016 ([id number]) OFFICE/OUTPATIENT VISIT EST Diagnosis: Irregular menstruation, unspecified[ICD10: N92.6] [facility]fa [facility] CPT-4: 55212 10/12/2016 ([id number]) OFFICE/OUTPATIENT VISIT EST Diagnosis: Fever, unspecified[ICD10: R50.9] Diagnosis: Influenza due to identified novel influenza A virus with other respiratory manifestations[ICD10: J09.X2] Catrina Bran [facility] CPT-4: 26190 08/08/2016 ([id number]) OFFICE/OUTPATIENT VISIT EST Diagnosis: Irregular menstruation, unspecified[ICD10: N92.6] [facility] CPT-4: 83087 07/25/2016 ([id number]) OFFICE/OUTPATIENT VISIT EST Diagnosis: Right upper quadrant pain[ICD10: R10.11] Diagnosis: Unspecified abdominal pain[ICD10: R10.9] Josefa [facility] CPT-4: 21232 05/15/2016 ([id number]) OFFICE/OUTPATIENT VISIT EST Diagnosis: Irregular menstruation, unspecified[ICD10: N92.6] [facility]fa [facility] CPT-4: 34991 05/03/2016 ([id number]) OFFICE/OUTPATIENT VISIT EST Diagnosis: Irregular menstruation, unspecified[ICD10: N92.6] [facility]fa [facility] CPT-4: 82989 02/20/2016 OFFICE/OUTPATIENT VISIT EST Diagnosis: Cutaneous abscess of buttock[ICD10: L02.31] Kitty Caldera [facility] CPT-4: 20704 12/23/2015 ([id number]) OFFICE/OUTPATIENT VISIT EST Diagnosis: Irregular menstruation, unspecified[ICD10: N92.6] Josefa [facility] CPT-4: 06303 11/07/2015 ([id number]) OFFICE/OUTPATIENT VISIT EST Diagnosis: Irregular menstruation, unspecified[ICD10: N92.6] [facility]fa [facility] CPT-4: 65037 08/01/2015 ([id number]) OFFICE/OUTPATIENT VISIT EST Diagnosis: Irregular menstruation, unspecified[ICD10: N92.6] Josefa [facility] CPT-4: 93048 05/11/2015 ([id number]) OFFICE/OUTPATIENT VISIT EST Diagnosis: Irregular menstruation, unspecified[ICD10: N92.6] Josefa [facility] CPT-4: 53719 02/16/2015 OFFICE/OUTPATIENT VISIT EST Diagnosis: SINUSITIS, ACUTE[ICD9: 461.9] Malgorzata TALAMANTES DO [facility] CPT-4: 43354 01/26/2015 ([id number]) OFFICE/OUTPATIENT VISIT EST Diagnosis: IRREGULAR MENSTRUATION[ICD9: 626.4] Josefa TALAMANTES DO [facility] CPT-4: 42089 11/29/2014 ([id number]) OFFICE/OUTPATIENT VISIT EST Diagnosis: IRREGULAR MENSTRUATION[ICD9: 626.4] Josefa TALAMANTES DO [facility] CPT-4: 89433 09/09/2014 ([id number]) OFFICE/OUTPATIENT VISIT EST Diagnosis: IRREGULAR MENSTRUATION[ICD9: 626.4] Diagnosis: General counseling and advice on contraceptive management[ICD9: V25.09] Diagnosis: Anxiety and depression[ICD9: 300.4] Malgorzata ALANIZ SMaria Teresa TALAMANTES [facility] CPT-4: 15936 06/16/2014 OFFICE/OUTPATIENT VISIT EST Diagnosis: Right upper quadrant pain[ICD9: 789.01] Malgorzata TALMAANTES DO [facility] CPT-4: 23723 01/28/2014 OFFICE/OUTPATIENT VISIT EST Diagnosis: Right upper quadrant pain[ICD9: 789.01] Malgorzata REBOLLARNDNENA [facility] CPT-4: 54504 12/10/2013 OFFICE/OUTPATIENT VISIT EST Diagnosis: Anxiety and depression[ICD9: 300.4] Malgorzata ALANIZ S. KETURAHNDNENA [facility] CPT-4: 29728 10/20/2013 OFFICE/OUTPATIENT VISIT EST Diagnosis: Menorrhagia[ICD9: 626.2] Malgorzata BULL MIGUEL [facility] CPT-4: 42129 10/07/2013 OFFICE/OUTPATIENT VISIT EST Diagnosis: IRREGULAR MENSTRUATION[ICD9: 626.4] Malgorzata ALANIZ SMaria Teresa REBOLLARNDNENA [facility] CPT-4: 01616 09/15/2013 OFFICE/OUTPATIENT VISIT EST Diagnosis: HEMATURIA NOS[ICD9: 599.70] Diagnosis: Abdominal discomfort in right upper quadrant[ICD9: 789.01] Malgorzata TALAMANTES DO [facility] CPT-4: 14514 06/24/2013 ([id number]) OFFICE/OUTPATIENT VISIT EST Diagnosis: ABDOMINAL PAIN[ICD9: 789.00] Diagnosis: GERD[ICD9: 530.81] Josefa TALAMANTES [facility] CPT-4: 61050 03/05/2013 OFFICE/OUTPATIENT VISIT EST Diagnosis: General counseling and advice on contraceptive management[ICD9: V25.09] Diagnosis: IRREGULAR MENSTRUATION[ICD9: 626.4] Malgorzata TALAMANTES DO [place] CPT-4: 85370 02/09/2013 ([id number]) OFFICE/OUTPATIENT VISIT EST Justine TALAMANTES DO [place] CPT-4: 01178 09/08/2010 ([id number]) OFFICE/OUTPATIENT VISIT EST Justine TALAMANTES DO [place] CPT-4: 40709 07/24/2010 Plan of Care Planned Activity Notes [...] R87.619 12/01/2019 Patient Education: Diclegis- [employer] Johana [id number] [email or web address]/[email or web address]/resources/getResource/[email or web address] Completed 12/01/2019 Appointment: Josefa Talamantes WPtel: [phone] [phone] [place] INJECTION 11/19/2019 Care Plan: 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 ICD-9 : 616.10 ICD-10 : N76.0 11/16/2019 Visit Diagnosis Plan: Encounter for gyne cological examination (general) (routine) with abnormal findings Discussion: fasting labs to be completed this week at [facility]. order written and given to patient. [...] ICD-10 : R60.0 11/16/2019 Appointment: Keyanna Mejía [address] [place], [place] [address] Annual Well Visit 11/16/2019 Visit Diagnosis Plan: Urethritis Discussion: Diflucan and topical nystatin ICD-9 : 597.80 ICD-10 : N34.2 07/07/2019 Visit Diagnosis Plan: History of renal stone Discussio n: Flomax Push water If not improving within 48hrs or if worsening then will need CT scan to assess for stone ICD-9 : V13.01 ICD-10 : Z87.442 07/07/2019 Appointment: Josefa Talamantes WPtel: [facility] ACUTE ILLNESS 07/07/2019 Patient Education: nystatin- [employer] Coupon [id number] [email or web address]://[email or web address]/samplemd/resources/getResource/[email or web address] Completed 07/07/2019 Appointment: Josefa Talamantes WPtel: [address] [place], [place] [phone] [place] UA 06/15/2019 Visit Diagnosis Plan: Dysuria Discussion: due to recur rent pain and worsening symptoms, rocephin 1 gm given in office. will send urine off for culture and call on saturday if any changes needed. instructed to push fluids through the w eekend and go to urgent care with any worsening. ICD-9 : 788.1 ICD-10 : R30.0 06/05/2019 Appointment: Keyanna Mejía [address] [place] [address] FOLLOW UP 06/05/2019 Visit Diagnosis Plan: Left [...] ICD-10 : M25.532 03/16/2019 Appointment: Keyanna Mejía [address] [place] [address] Hospital Follow Up 03/16/2019 Appointment: Josefa Talamantes WPtel: [address] [place], [place] [phone] [place] UA 03/02/2019 Appointment: Josefa Talamantes WPtel: [address] [place], [place] [phone] [place] INJECTION 02/16/2019 Appointment: Josefa Talamantes WPtel: [address] [place], [place] [phone] [place] INJECTION 05/21/2018 Visit Diagnosis Plan: Nontoxic [...] performed in office and negative. 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 and bring back to office [...] ICD-10 : K13.0 03/03/2018 Appointment: Keyanna Mejía [address] [place] [address] [place] ACUTE ILLNESS 03/03/2018 Patient Education: Patient Medication Summary Completed 03/03/2018 Care Plan: US EXAM OF HEAD AND NECK thyroid LOIN C : 94139-4 Pending 03/03/2018 Appointment: Josefa Talamantestel: [address] [place], [place] [phone] [place] CANCELED 02/27/2018 Appointment: Josefa Talamantes WPtel: [address] [place], [place] [phone] [place] INJECTION 11/26/2017 Patient Education: Patient Medication Summary Completed 11/26/2017 Appointment: Josefa Talamantes WPtel: [address] [place] [phone] [place] INJECTION 08/27/2017 Patient Education: Patient Medication Summary Completed 08/27/2017 Appointment: Josefa Talamantes WPtel: [address] [place] [phone] [place] INJECTION 06/06/2017 Patient Education: Patient Medication Summary Completed 06/06/2017 Appointment: [facility] [phone] [facility] [place] [facility] 01/04/2017 Patient Education: Patient Medication Summary Completed 01/04/2017 Appointment: [facility] [place] 11/19 lm `sl 11/21 lm `sl NO SHOW 11/22/19 17 Patient Education: Patient Medication Summary Completed 10/22/2016 Care Plan: US EXAM OF HEAD AND NECK Thyroid Ultrasound LOIN C : 78771-5 Pending 10/22/2016 Visit Diagnosis Plan: Gastro-esophageal reflux [...] : R13.13 10/18/2016 Appointment: Josefa Talamantes WPtel: [address] [place], [place] [id number] [place] 6 lm `sl Annual Well Visit 10/18/2016 Patient Education: Patient Medication Summary Completed 10/18/2016 Appointment: Jose[facility]antes [facility]Ptel[facility] [address] [facility] [place] [facility]JECTION 10/12/2016 Patient Education: Patient Medication Summary Completed 10/12/2016 Visit Diagnosis Plan: Influenza due to i dentified novel influenza A virus with other respiratory manifestations Discussion: Flu A positive Rx as above Supportive care otherwise Contagious precautions discussed Notify kids' provider of exposure for their instructions ICD-9 : 488.02 ICD-10 : J09.X2 08/08/2016 Appointment: Catrina Bran [address] [facility] [place] ACUTE ILLNESS 08/08/2016 Patient Education: Patient Medication Summary Completed 08/08/2016 Appointment: Josefa Talamantes WPtel: [address] [place], [place] [id number] [place] INJECTION 07/25/2016 Patient Education: Patient Medication Summary Completed 07/25/2016 Visit Plan: Finish abx and then recultur e 48hrs after completion Add levsin and zorvolex 05/15/2016 Appointment: Josefa Talamantes WPtel: [address] [place] [id number] [place] / lm ` 05/15 confirmed~ Hospital Follow Up 0 05/15/2016 Patient Education: Patient Medication Summary Completed 05/15/2016 Appointment: Catrina Bran [address] [place], [place] [id number] 05/09 admitted into the hospital last night~ ACUTE ILLNESS 05/09/2016 Appointment: Josefa Talamantes WPtel: [address] [place] [id number] [place] INJECTION 05/03/2016 Patient Education: Patient Medication Summary Completed 05/03/2016 Appointment: Josefa Talamantes WPtel: [address] [place] [id number] [place] INJECTION 02/20/2016 Patient Education: Patient Medication Summary Completed 02/20/2016 Visit Plan: ERx for Bactrim and Bactroba n [place] [facility] 50mg 1 po q 4-6 hours prn pain #20 Warm moist heat to area qid Watch for s/s of worsening, go to UC over weekend Discussed SE of meds including s/s of SJS which would require an ER visit C&S obtained 12/23/2015 Appointment: Kitty Caldera WPtel: [address] [place], [place] [phone] [place] ACUTE ILLNESS 12/23/2015 Patient Education: Patient Medication Summary Completed 12/23/2015 Appointment: Josefa Talamantes WPtel: [address] [place] [phone] [place] INJECTION 11/07/2015 Patient Education: Patient Medication Summary Completed 11/07/2015 Appointment: Josefa Talamantes WPtel: [address] [place] [phone] [place] INJECTION 08/01/2015 Patient Education: Patient Medication Summary Completed 08/01/2015 Appointment: Josefa Talamantes WPtel: [address] [place] [phone] [place] INJECTION 05/11/2015 Patient Education: Patient Medication Summary Completed 05/11/2015 Appointment: Malgorzata Islas WPtel: [address] [place], [place] [phone] [place] PAP 04/05/2015 Appointment: Josefa Talamantes WPtel: [address] [place] [phone] [place] INJECTION 02/16/2015 Patient Education: Patient Medication Summary Completed 02/16/2015 Visit Plan: Daily nasal saline rinses Fl onase nasal spray and daily Zyrtec Medrol dose pack Z-jhonathan as directed 01/26/2015 Appointment: Malgorzata Islas WPtel: [address] [place], [place] [phone] [place] ACUTE ILLNESS 01/26/2015 Patient Education: Patient Medication Summary Completed 01/26/2015 Appointment: Josefa Talamantes WPtel: [address] [place] [phone] [place] INJECTION 11/29/2014 Patient Education: Patient Medication Summary Completed 11/29/2014 Appointment: Josefa Talamantes WPtel: [address] [place] [phone] [place] INJECTION 09/09/2014 Patient Education: Patient Medication Summary Completed 09/09/2014 Appointment: Malgorzata Islas WPtel: [address] [place], [place] [phone] [place] FOLLOW UP 06/16/2014 Patient Education: Patient Medication Summary Completed 06/16/2014 Appointment: Malgorzata Islas WPtel: [address] [place] [phone] 06/02/14 appointment scheduled 06/03/14 no showed PAP 06/03/2014 Appointment: RcihFabricioRolandosa Reese WPtel: [address] [place] [phone] FOLLOW UP 01/28/2014 Patient Education: Patient Medication Summary Completed 01/28/2014 Care Plan: COM[place] : [address]-6 Ordered 01/28/2014 Care Plan: AMYLASE Pending 4 Appointment: Malgorzata Islas WPtel: [address] [place], [place] [phone] [place] FOLLOW UP 12/10/2013 Patient Education: Patient Medication Summary Completed 12/10/2013 Appointment: Malgorzata Islas WPtel: [address] [place] [phone] 11/11 vm 11/12 No Show FOLLOW UP 11/12/2013 Appointment: Malgorzata Islas WPtel: [address] [place], [place] [phone] FOLLOW UP 10/20/2013 Patient Education: Patient Medication Summary Completed 10/20/2013 Visit Plan: Quantitative Hcg and CBC tod ay. Transvaginal/Transabdominal sonogram stat Discussed with CUSHION COVER INSPECTOR and [facility] 343 so will recheck in 1week as long as not worsening 10/07/2013 Appointment: Malgorzata Islas WPtel: [address] [place], [place] [phone] ACUTE ILLNESS 10/07/2013 Patient Education: Patient Medication Summary Completed 10/07/2013 Appointment: Malgorzata Islas WPtel: [address] [place] [phone] ACUTE ILLNESS 09/15/2013 Patient Education: Patient Medication Summary Completed 09/15/2013 Appointment: Malgorzata Islas WPtel: [address] [place] [phone] ACUTE ILLNESS 06/24/2013 Patient Education: Patient Medication Summary Completed 06/24/2013 Appointment: Malgorzata Islas WPtel: [address] [place] [address] appt was scheduled today then patient no showed the visit ACUTE ILLNESS 05/21/2013 Visit Plan: Check CMP, CBC, UA CT scan o f abdomen Omeprazole 03/05/2013 Appointment: Josefa Talamantes WPtel: [address] [place] [address] ACUTE ILLNESS 03/05/2013 Appointment: Josefa Talamantes WPtel: [address] [place] [address] 03/02 canceled, wrong patient FOLLOW UP Patient Education: Patient Medication Summary Completed 03/05/2013 Appointment: Malgorzata Islas WPtel: [address] [place] [address] ACUTE ILLNESS 02/09/2013 Patient Education: Patient Medication Summary Completed 02/09/2013 Appointment: Justine Ortega WPtel: [address] [place] [address] ACUTE ILLNESS 09/08/2010 Patient Education: Patient Medication Summary Completed 09/08/2010 Appointment: Justine Ortega WPtel: [address] [place] [address] PAP 08/08/2010 Appointment: Justine Ortega WPtel: [address] [place] [address] ACUTE ILLNESS 07/24/2010 Patient Education: Patient Medication Summary Completed 07/24/2010 Visit Plan: All warts shaved with 11-rekha de scalpel and then cryotherapy x3 Will followup with DNCB treatment 03/08/2010 Appointment: Josefa Talamantes WPtel: [address] [place] [address] ACUTE ILLNESS 03/08/2010 Patient Education: Patient Medication Summary Completed 03/08/2010 Appointment: Josefa Talamantes WPtel: [phone] [id number] [place] PAP 09/14/2009 Referral: Roney Galloway WPtel: [address] [facility] 3 [id number] [place] Referral Initiated Referral: Mariel Brian Reese WPtel: [address] [id number] [place] Referral Initiated Referral: Referral Initiated Instructions [...] CBC today. Transvaginal/Transabdominal sonogram stat Discussed with CUSHION COVER INSPECTOR and [facility] 343 so will recheck in [...]
--- OUTSIDE RECORDS SUMMARY | 2019-12-11 21:56 | XMS REPORT | CCD ---
Author Author Brenda Talamantes D.O. 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 Commercial Insurance [id number] Unknown Family History Family History data not found Social History Social History Element Codes Description Effective Dates Tobacco history SNOMED CT: 003616702 Unknown if ever smoked 01/12 Allergies, Adverse [...] Diclegis 10 mg-10 mg tablet,delayed release RxNorm: 5787981 2 Tablet(s) Oral QPM 12/01/2019 12/01/2019 Inactive vitamin E 400 unit capsule RxNorm: 847698 1 Capsule(s) Oral QD 11/10 No Stop Date Active metronidazole 500 mg tablet RxNorm: 705599 1 Tablet(s) Oral two times a day 11/17/2019 11/16/2019 Inactive metronidazole 500 mg tablet RxNorm: 587222 1 Tablet(s) Oral two times a day 11/17/2019 11/24/2019 Inactive Depo-Provera 150 mg/mL intramuscular suspension RxNorm: 1000 128 1 Application Intramuscular 11/16/2019 No Stop Date Active Diflucan 100 mg tablet RxNorm: 262838 1 Tablet(s) Oral QD 07/07/2019 07/14/2019 Inactive Flomax 0.4 mg capsule RxNorm: 939718 1 Capsule(s) Oral QPM for kidney stone 07/07/2019 08/06/2019 Inactive nystatin 100,000 unit/gram topical cream RxNorm: 851853 Application Topical two times a day to periurethral area 07/07/2019 11/16/2019 Inactive Bactrim DS 800 mg-160 mg tablet RxNorm: 423077 1 Tablet(s) Oral two times a day 06/08/2019 06/13/2019 Inactive Bactrim DS 800 mg-160 mg tablet RxNorm: 436640 1 Tablet(s) Oral two times a day 06/08/2019 06/07/2019 Inactive ibuprofen 800 mg tablet RxNorm: 591541 1 Tablet(s) Oral Q8H as needed 03/16/2019 06/05/2019 Inactive Cipro 500 mg tablet RxNorm: 444602 1 Tablet(s) Oral two times a day 03/04/2019 03/11/2019 Inactive Cipro 500 mg tablet RxNorm: 034825 1 Tablet(s) Oral two times a day 03/04/2019 03/03/2019 Inactive Macrobid 100 mg capsule RxNorm: 946337 1 Capsule(s) Oral two ti mes a day 02/16/2019 02/15/2019 Inactive Macrobid 100 mg capsule RxNorm: 849757 1 Capsule(s) Oral two ti mes a [...] 11/24/2017 Inactive Pepcid 40 mg tablet RxNorm: 294725 1 Tablet(s) PO QD 10/18/201603/02 Inactive Depo-Provera 150 mg/mL intramuscular suspension RxNorm: 1000 128 Milliliter(s) 1 Milliliter(s) IM 10/10/2016 06/04/2017 Inactive Tamiflu 75 mg capsule RxNorm: 639376 1 Capsule(s) PO BID 08/08/2016 0 08/12/2016 Inactive Levsin 0.125 mg tablet RxNorm: 2908395 1 Tablet(s) PO TID for fl ank pain 05/15/2016 10/17/2016 Inactive Bactrim DS 800 mg-160 mg tablet RxNorm: 583008 1 Tablet(s) PO BID 0 12/23/2015 01/01/2016 Inactive mupirocin 2 % topical ointment RxNorm: 897132 Application TOP TID 0 12/23/2015 12/29/2015 Inactive Depo-Provera 150 mg/mL intramuscular suspension RxNorm: 1000 128 Milliliter(s) 1 Milliliter(s) IM 11/08/2015 10/09/2016 Inactive Xanax 0.25 mg tablet RxNorm: 494056 TAKE ONE-HALF TO ON E TABLET BY MOUTH NEEDED FOR ANXIETY 04/11/2015 05/10/2015 Inactive Generic For:X ANAX 0.25 MG TABLET 04/11/2015 2:54:57 PM Depo-Provera 150 mg/mL intramuscular suspension RxNorm: 1000 128 Milliliter(s) 1 Milliliter(s) IM 02/15/2015 11/07/2015 Inactive azithromycin 250 mg tablet RxNorm: 309156 2 Tablet(s) P O today, then one tablet on days 2 - 5 01/26/2015 12/22/2015 Inactive Medrol (Jhonathan) 4 mg tablets in a dose pack RxNorm: 725793 Tablet(s) P O 01/26/2015 12/22/2015 Inactive Depo-Provera 150 mg/mL intramuscular suspension RxNorm: 1000 128 1 Milliliter(s) IM 09/06/2014 02/15/2015 Inactive Xanax 0.25 mg tablet RxNorm: 634609 1/2 - 1 Tablet(s) PO as nee ded for anxiety 06/16/2014 04/12/2015 Inactive Zoloft 50 mg tablet RxNorm: 951605 1 Tablet(s) PO QD 06/16/201412/21 Inactive Flexeril [...] 2014 Inactive Xanax 0.25 mg tablet RxNorm: 625633 1/2 - 1 Tablet(s) PO as nee ded for anxiety 01/28/2014 06/15/2014 Inactive naproxen 500 mg tablet RxNorm: 728218 1 Tablet(s) PO BID 12/10/2013 0 01/08/2014 Inactive Zoloft 50 mg tablet RxNorm: 981871 1 Tablet(s) PO QD 12/10/201304/08 Inactive Xanax 0.25 mg tablet RxNorm: 698696 1/2 - 1 Tablet(s) PO as nee ded for anxiety 12/10/2013 01/27/2014 Inactive Xanax 0.25 mg tablet RxNorm: 694127 1 Tablet(s) PO Q8H 10/20/2013 Inactive Zoloft 50 mg tablet RxNorm: 772923 1/2 Tablet(s) PO x 6 days then on1 tablet daily 10/20/2013 11/18/2013 Inactive Loestrin Fe 06/01 (28) 1 mg-20 mcg tablet RxNorm: 3619479 1 Table t(s) PO QD 10/20/2013 05/03/2014 Inactive phenazopyridine 100 mg tablet RxNorm: 2121847 1 Tablet(s) PO Q8H 06/26/2013 Inactive Macrobid 100 mg capsule RxNorm: 475073 1 Capsule(s) PO BID 06/25/19 14 07/04/2013 Inactive phenazopyridine 100 mg tablet RxNorm: 8479229 1 Tablet(s) PO Q8H 06/24/2013 Inactive Macrobid 100 mg capsule RxNorm: 157468 1 Capsule(s) PO BID 07/25/19 11 08/02/2010 Inactive Apri 0.15 mg-30 mcg tablet RxNorm: 303829 1 Tablet(s) PO QD As directed. No Start Date 06/23/2013 Inactive omeprazole 40 mg capsule,delayed release RxNorm: 565154 1 Capsule(s) PO QD for stomach No Start Date 06/23/2013 Inactive naproxen 500 mg tablet RxNorm: 987362 1 Tablet(s) PO BID No Start D ate 06/15/2014 Inactive hydrocodone 10 mg-acetaminophen 325 mg tablet RxNorm: 332223 Tablet(s) PO as needed for pain No Start Date 12/22/2015 Inactive Zoloft 50 mg tablet RxNorm: 272718 1 Tablet(s) PO QD No Start Date Inactive hydrocodone 5 mg-acetaminophen 325 mg tablet RxNorm: 750964 1 Tablet(s) PO QID as needed for pain No Start Date 09/14/2013 Inactive Medication Administered No Medication Administered data Immunizations No Immunization data Results Observation Observation Code Item Item Code Result Date S ervice Location [facility] [id number] Whiff TNP:Duplicate Order 11/17/19 20 Unknown V [facility] [id number] WBC Vaginal TNP:Duplicate Order 2019 Unknown V [facility] [id number] SCALEMAKER Lactobac TNP:Duplicate Order 2019 Unknown V [facility] [id number] Clue Cells TNP:Duplicate Order 020 Unknown V [facility] [id number] SCALEMAKER Curved GNR TNP:Duplicate Order 11/2019 Unknown V [facility] [id number] Yeast Vaginal TNP:Duplicate Order 11/2019 Unknown V PROF SWB [id number] SCALEMAKER SM GVB TNP:Duplicate Order 11/17/19 20 Unknown V PROF SWB [id number] SCALEMAKER Swb Trich Ag TNP:Duplicate Order Unknown V PROF SWB [id number] SCALEMAKER BV Stain TNP:Duplicate Order 2019 Unknown V PROF SWB [id number] SCALEMAKER Interp TNP:Duplicate Order 11/17/19 20 Unknown V PROF SWB [id number] Conf BV Stain TNP:Duplicate Order 11/2019 Unknown V PROF SWB [id number] Whiff Positive 11/17/2019 Unknown V PROF SWB [id number] WBC Vaginal Few 11/17/2019 Unknow n V PROF SWB [id number] Clue Cells >20% 11/17/2019 Unknown V PROF SWB [id number] Yeast Vaginal None 11/17/2019 Unkn own V PROF SWB [id number] SCALEMAKER Swb Trich Ag Negative 11/17/2019 Un known V PROF SWB [id number] SCALEMAKER BV Stain 10 11/17/2019 Unknow n V PROF SWB [id number] SCALEMAKER Interp Results indicate Bacteria l Vaginosis Syndrome. 11/17/2019 Unknown VAG PROF [id number] PH TNP:Improper Specimen 020 Unknown VAG PROF [id number] Whiff TNP:Improper Specimen 020 Unknown VAG PROF [id number] WBC Vaginal TNP:Improper Specimen 11/15 Unknown VAG PROF [id number] SCALEMAKER Lactobac TNP:Improper Specimen 11/15 Unknown VAG PROF [id number] Clue Cells TNP:Improper Specimen 2019 Unknown VAG PROF [id number] SCALEMAKER Curved GNR TNP:Improper Specimen 10/2019 Unknown VAG PROF [id number] Yeast Vaginal TNP:Improper Specimen 10/2019 Unknown VAG PROF [id number] SCALEMAKER SM GVB TNP:Improper Specimen 020 Unknown VAG PROF [id number] Trichomonas TNP:Improper Specimen 11/15 Unknown VAG PROF [id number] SCALEMAKER BV Stain TNP:Improper Specimen 11/15 Unknown VAG PROF [id number] SCALEMAKER Intp TNP:Improper Specimen 020 Unknown VAG PROF [id number] Conf BV Stain TNP:Improper Specimen 10/2019 Unknown LIPASE 27655 LIPASE 14 IU/L 01/28/2014 Unknown COMPLETE BLOOD COUNT [id number] WBC 6.5 10e9/L 01/29/20 14 Unknown COMPLETE BLOOD COUNT [id number] RBC 4.54 10e12/L 2013 Unknown COMPLETE BLOOD COUNT [id number] HGB 12.1 g/dL 4 Unknown COMPLETE BLOOD COUNT [id number] HCT DET 38.0 % 4 Unknown COMPLETE BLOOD COUNT [id number] MCV 83.7 fL 4 Unknown COMPLETE BLOOD COUNT [id number] MCH 26.7 pg 4 Unknown COMPLETE BLOOD COUNT [id number] MCHC 31.8 g/dL 4 Unknown COMPLETE BLOOD COUNT [id number] PLT 218 10e9/L 01/29/20 14 Unknown COMPLETE BLOOD COUNT [id number] MPV 12.8 fL 4 Unknown COMPLETE BLOOD COUNT [id number] RACHNA % 56.5 % 4 Unknown COMPLETE BLOOD COUNT 2786716 LY % 32.3 % 4 Unknown COMPLETE BLOOD COUNT [id number] MON % 8.6 % 4 Unknown COMPLETE BLOOD COUNT [id number] EOS % 2.1 % 4 Unknown COMPLETE BLOOD COUNT [id number] BASO % 0.5 % 4 Unknown COMPLETE BLOOD COUNT [id number] RDW 18.4 % 4 Unknown COMPLETE BLOOD COUNT [id number] ABS RACHNA 3.67 10e9/L 014 Unknown COMPLETE BLOOD COUNT 0675014 ABS LYMPH 2.10 10e9/L 014 Unknown COMPLETE BLOOD COUNT [id number] ABS MONO 0.56 10e9/L 014 Unknown COMPLETE BLOOD COUNT [id number] ABS EOS 0.14 10e9/L 014 Unknown COMPLETE BLOOD COUNT [id number] ABS BASO 0.03 10e9/L 014 Unknown COMPLETE BLOOD COUNT [id number] RDW-SD 55.5 fL 4 Unknown COMPREHENSIVE METABOLIC 90732 AST 13 U/L 2013 Unknown COMPREHENSIVE METABOLIC 75485 ALT 7 IU/L 2013 Unknown COMPREHENSIVE METABOLIC 25966 BUN 8 MG/DL 2013 Unknown COMPREHENSIVE METABOLIC 26913 ALBUMIN 4.5 GM/DL 2013 Unknown COMPREHENSIVE METABOLIC 43986 CHLORIDE 106 MMOL/L 01/28 Unknown COMPREHENSIVE METABOLIC 16149 BILI TOT 0.4 MG/DL 2013 Unknown COMPREHENSIVE METABOLIC 73410 ALK PHOS 55 U/L 2013 Unknown COMPREHENSIVE METABOLIC 82410 SODIUM 138 MMOL/L 01/28 Unknown COMPREHENSIVE METABOLIC 29691 CREATININE 0.73 MG/DL 01/11 Unknown COMPREHENSIVE METABOLIC 16686 CALCIUM 9.9 MG/DL 2013 Unknown COMPREHENSIVE METABOLIC 11472 POTASSIUM 3.8 MMOL/L 01/28 Unknown COMPREHENSIVE METABOLIC 37220 PROT TOT 7.4 GM/DL 2013 Unknown COMPREHENSIVE METABOLIC 58108 Glucose 96 MG/DL 2013 Unknown COMPREHENSIVE METABOLIC 97534 BICARB 27 MMOL/L 2013 Unknown COMPREHENSIVE METABOLIC 55852 ANION GAP 5 MEQ/L 2013 Unknown AMYLASE 51538 AMYLASE 42 IU/L 01/28/2014 Unknown GFR CALC [id number] GFR AA >60 ML/MIN 01/28/2014 Unknown GFR CALC 3433983 GFR NON-AA >60 ML/MIN 01/28/2014 Unknown Procedures Procedure Codes Date URINE TEST CPT-4: 16852 12/01/2019 THER/PROPH/DIAG INJ SC/IM CPT-4: 31782 11/19/2019 URINE TEST CPT-4: 85004 11/16/2019 SPECIMEN HANDLING OFFICE-LAB CPT-4: 66529 11/16/2019 URINE CULTURE/ COLONY COUNT CPT-4: 10763 06/15/2019 URINALYSIS NONAUTO W/O SCOPE CPT-4: 60725 06/05/2019 CEFTRIAXONE SODIUM INJECTION CPT-4: J0696 06/05/2019 THER/PROPH/DIAG INJ SC/IM CPT-4: 83444 06/05/2019 URINE CULTURE/ COLONY COUNT CPT-4: 11788 06/05/2019 URINE CULTURE/ COLONY COUNT CPT-4: 88012 03/02/2019 THER/PROPH/DIAG INJ SC/IM CPT-4: 73664 02/16/2019 URINE CULTURE/ COLONY COUNT CPT-4: 38536 02/16/2019 URINALYSIS NONAUTO W/O SCOPE CPT-4: 83658 02/16/2019 URINE TEST CPT-4: 61420 02/16/2019 THER/PROPH/DIAG INJ SC/IM CPT-4: 83767 05/21/2018 THER/PROPH/DIAG INJ SC/IM CPT-4: 32207 11/26/2017 THER/PROPH/DIAG INJ SC/IM CPT-4: 22743 08/27/2017 THER/PROPH/DIAG INJ SC/IM CPT-4: 56765 06/06/2017 URINALYSIS NONAUTO W/O SCOPE CPT-4: 44582 06/06/2017 GC/CHLAMYDIA DNA ([facility]) CPT-4: 05597|63701 8 URINE CULTURE/ COLONY COUNT CPT-4: 29416 06/06/2017 THER/PROPH/DIAG INJ SC/IM CPT-4: 90681 01/04/2017 SPECIMEN HANDLING OFFICE-LAB CPT-4: 72069 10/18/2016 THER/PROPH/DIAG INJ SC/IM CPT-4: 23494 10/12/2016 INFLUENZA ASSAY W/OPTIC CPT-4: 89037 08/08/2016 THER/PROPH/DIAG INJ SC/IM CPT-4: 45006 07/25/2016 THER/PROPH/DIAG INJ SC/IM CPT-4: 00349 05/03/2016 THER/PROPH/DIAG INJ SC/IM CPT-4: 94582 02/20/2016 URINE TEST CPT-4: 75164 02/20/2016 AEROBIC WOUND CULTURE & STN CPT-4: 81086 12/23/2015 THER/PROPH/DIAG INJ SC/IM CPT-4: 65624 11/07/2015 URINE TEST CPT-4: 19321 11/07/2015 THER/PROPH/DIAG INJ SC/IM CPT-4: 36206 08/01/2015 THER/PROPH/DIAG INJ SC/IM CPT-4: 93337 05/11/2015 THER/PROPH/DIAG INJ SC/IM CPT-4: 82764 02/16/2015 THER/PROPH/DIAG INJ SC/IM CPT-4: 55910 11/29/2014 THER/PROPH/DIAG INJ SC/IM CPT-4: 73098 09/09/2014 URINE TEST CPT-4: 69639 06/16/2014 THER/PROPH/DIAG INJ SC/IM CPT-4: 70686 06/16/2014 ROUTINE VENIPUNCTURE CPT-4: 59593 10/07/2013 COMPLETE CBC W/AUTO DIFF WBC CPT-4: 16317 10/07/2013 CHORIONIC GONADOTROPIN TEST CPT-4: 28835 10/07/2013 URINE TEST CPT-4: 72521 09/15/2013 URINALYSIS NONAUTO W/O SCOPE CPT-4: 22185 06/24/2013 URINE CULTURE/ COLONY COUNT CPT-4: 77623 06/24/2013 URINE TEST CPT-4: 01663 09/08/2010 URINALYSIS NONAUTO W/O SCOPE CPT-4: 35549 07/24/2010 URINE CULTURE/ COLONY COUNT CPT-4: 66906 07/24/2010 DESTRUCT PREMALG LESION ([facility]) CPT-4: 77322 DESTRUCT PREMALG LES 2-14 CPT-4: 63003 03/08/2010 Vital Signs Date Vital 12/01/2019 Blood Pressure 1: 128/78 Code: 8480-6 Heart Rate 1: 80 bpm Respiratory Rate: 16 bpm SpO2: 98% Temperature: 36.7 (C) / 98.0 (F) We ight: 161 lbs 11/16/2019 Blood Pressure 1: 119/75 Code: 8480-6 BMI: 24.4 Code: 61685-4 Heart Rate 1: 112 bpm Height: 5'9" Respiratory Rate: 15 bpm SpO2: 98% Tempera ture: 36.8 (C) / 98.2 (F) Weight: 165 lbs 07/07/2019 Blood Pressure 1: 126/82 Code: 8480-6 Heart Rate 1: 100 bpm SpO2: 99% Temperature: 36.8 (C) / 98.2 (F) 06/05/2019 Blood Pressure 1: 131/82 Code: 8480-6 BMI: 26.3 Code: 55318-6 Heart Rate 1: 109 bpm Height: 5'9" Respiratory Rate: 16 bpm SpO2: 99% Tempera ture: 36.7 (C) / 98.1 (F) Weight: 178 lbs 03/16/2019 Blood Pressure 1: 132/86 Code: 8480-6 Heart Rate 1: 73 bpm SpO2: 99% Temperature: 36.6 (C) / 97.9 (F) Weight: 158 lbs 03/03/2018 Blood Pressure 1: 120/88 Code: 8480-6 BMI: 23.9 Code: 20396-5 Heart Rate 1: 81 bpm Height: 5'9" Respiratory Rate: 18 bpm SpO2: 99% Tempera ture: 36.1 (C) / 97.0 (F) Weight: 162 lbs 10/18/2016 Blood Pressure 1: 108/ Code: 8480-6 BMI: 22.6 Code: 95996-1 Heart Rate 1: 100 bpm Height: 5'9" Respiratory Rate: 20 bpm SpO2: 98% Tempera ture: 37.1 (C) / 98.8 (F) Weight: 153 lbs 08/08/2016 Blood Pressure 1: 114/ Code: 8480-6 Heart Rate 1: 102 bpm Respiratory Rate: 20 bpm SpO2: 98% Temperature: 36.4 (C) / 97.6 (F) We ight: 152 lbs 05/15/2016 Blood Pressure 1: 124/80 Code: 8480-6 BMI: 23.2 Code: 04681-8 Heart Rate 1: 100 bpm Height: 5'9" Respiratory Rate: 20 bpm Temperature: 37 .0 (C) / 98.6 (F) Weight: 157 lbs 12/23/2015 Blood Pressure 1: 124/78 Code: 8480-6 BMI: 23.0 Code: 22118-2 Heart Rate 1: 92 bpm Height: 5'9" Respiratory Rate: 20 bpm SpO2: 97% Tempera ture: 36.9 (C) / 98.5 (F) Weight: 156 lbs 01/26/2015 Blood Pressure 1: 118/78 Code: 8480-6 BMI: 21.3 Code: 50226-3 Heart Rate 1: 100 bpm Height: 5'9" Respiratory Rate: 20 bpm SpO2: 97% Tempera ture: 36.6 (C) / 97.8 (F) Weight: 144 lbs 06/16/2014 Blood Pressure 1: 118/78 Code: 8480-6 BMI: 23.5 Code: 14203-7 Heart Rate 1: 78 bpm Height: 5'9" Respiratory Rate: 18 bpm Temperature: 36 .1 (C) / 97.0 (F) Weight: 159 lbs 01/28/2014 Blood Pressure 1: 124/78 Code: 8480-6 BMI: 23.2 Code: 89312-3 Heart Rate 1: 88 bpm Height: 5'9" Respiratory Rate: 22 bpm Temperature: 36 .1 (C) / 97.0 (F) Weight: 157 lbs 12/10/2013 Blood Pressure 1: 124/70 Code: 8480-6 BMI: 23.0 Code: 37318-0 Heart Rate 1: 82 bpm Height: 5'9" Respiratory Rate: 20 bpm Temperature: 36 .2 (C) / 97.2 (F) Weight: 156 lbs 10/20/2013 Blood Pressure 1: 118/82 Code: 8480-6 Heart Rate 1: 84 bpm Respiratory Rate: 22 bpm Temperature: 36.5 (C) / 97.7 (F) Weight: 150 lbs 10/07/2013 Blood Pressure 1: 120/80 Code: 8480-6 BMI: 22.2 Code: 26354-8 Heart Rate 1: 68 bpm Height: 5'9" Respiratory Rate: 22 bpm Temperature: 36 .2 (C) / 97.2 (F) Weight: 150 lbs 09/15/2013 Blood Pressure 1: 118/68 Code: 8480-6 BMI: 22.0 Code: 14730-6 Heart Rate 1: 78 bpm Height: 5'9" Respiratory Rate: 20 bpm Temperature: 36 .1 (C) / 97.0 (F) Weight: 149 lbs 06/24/2013 Blood Pressure 1: 112/74 Code: 8480-6 Heart Rate 1: 74 bpm Respiratory Rate: 20 bpm Temperature: 36.6 (C) / 97.9 (F) Weight: 150 lbs 03/05/2013 Blood Pressure 1: 126/88 Code: 8480-6 BMI: 23.5 Code: 93858-8 Heart Rate 1: 80 bpm Height: 5'9" Respiratory Rate: 20 bpm Temperature: 36 .6 (C) / 97.9 (F) Weight: 159 lbs 02/09/2013 Blood Pressure 1: 110/68 Code: 8480-6 BMI: 21.9 Code: 66365-6 Heart Rate 1: 74 bpm Height: 5'9" Respiratory Rate: 22 bpm Temperature: 36 .8 (C) / 98.2 (F) Weight: 148 lbs 09/08/2010 Blood Pressure 1: 124/90 Code: 8480-6 BMI: 21.4 Code: 48231-7 Height: 5'10" Temperature: 36.4 (C) / 97.6 [...] painful Encounters Encounter Performer Location Codes Date ([id number]) OFFICE/OUTPATIENT VISIT EST Diagnosis: Amenorrhea[ICD10: N91.2] Diagnosis: [ICD10: Z34.90] Diagnosis: Abnormal Pap smear of cervix[ICD10: R87.619] Diagnosis: Nausea[ICD10: R11.0] Diagnosis: related nausea, antepartum[ICD10: O26.899] Keyanna HELMS [employer] CPT-4: 69989 12/01/2019 ([id number]) NURSE/OUTPATIENT VISIT EST Diagnosis: Irregular menstruation, unspecified[ICD10: N92.6] Josefa Connors [employer] CPT-4: 02966 11/19/2019 ([id number]) PREV VISIT EST AGE 18-39 Diagnosis: Encounter for gynecological examination (general) (routine) with abnormal findings[ICD10: Z01.411] Diagnosis: Encounter for general adult medical examination without abnormal findings[ICD10: Z00.00] Diagnosis: Vaginitis[ICD10: N76.0] Diagnosis: Left breast mass[ICD10: N63.20] Diagnosis: Dense breast tissue[ICD10: R92.2] Diagnosis: Bilateral lower extremity edema[ICD10: R60.0] Diagnosis: control counseling[ICD10: Z30.09] Keyanna TALAMANTES [employer] CPT-4: 03779 11/16/2019 ([id number]) OFFICE/OUTPATIENT VISIT EST Diagnosis: Urethritis[ICD10: N34.2] Diagnosis: History of renal stone[ICD10: Z87.442] Josefa TALAMANTES DO [facility] CPT-4: 10757 07/07/2019 ([id number]) NURSE/OUTPATIENT VISIT EST Diagnosis: Urinary tract infection[ICD10: N39.0] Josefa TALAMANTES DO [facility] CPT-4: 15921 06/15/2019 ([id number]) OFFICE/OUTPATIENT VISIT EST Diagnosis: Dysuria[ICD10: R30.0] Diagnosis: Pelvic pain in female[ICD10: R10.2] Keyanna TALAMANTES DO [facility] CPT-4: 29134 06/05/2019 ([id number]) OFFICE/OUTPATIENT VISIT EST Diagnosis: Left wrist pain[ICD10: M25.532] Diagnosis: Swelling of left upper extremity[ICD10: M79.89] Keyanna TALAMANTES DO [facility] CPT-4: 95563 03/16/2019 ([id number]) NURSE/OUTPATIENT VISIT EST Diagnosis: Urinary tract infection[ICD10: N39.0] Josefa TALAMANTES DO [facility] CPT-4: 23941 03/02/2019 ([id number]) NURSE/OUTPATIENT VISIT EST Diagnosis: Irregular menstruation, unspecified[ICD10: N92.6] Diagnosis: Urinary tract infection[ICD10: N39.0] Josefa TALAMANTES DO [facility] CPT-4: 12840 02/16/2019 ([id number]) NURSE/OUTPATIENT VISIT EST Diagnosis: Irregular menstruation, unspecified[ICD10: N92.6] Josefa TALAMANTES DO [facility] CPT-4: 84203 05/21/2018 ([id number]) OFFICE/OUTPATIENT VISIT EST Diagnosis: Irregular menstruation, unspecified[ICD10: N92.6] Diagnosis: Diseases of lips[ICD10: K13.0] Diagnosis: 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] Keyanna TALAMANTES DO [facility] CPT-4: 74120 03/03/2018 ([id number]) NURSE/OUTPATIENT VISIT EST Diagnosis: Irregular menstruation, unspecified[ICD10: N92.6] Josefa TALAMANTES DO [facility] CPT-4: 01233 11/26/2017 ([id number]) OFFICE/OUTPATIENT VISIT EST Diagnosis: Irregular menstruation, unspecified[ICD10: N92.6] Josefa TALAMANTES DO [facility] CPT-4: 02733 08/27/2017 ([id number]) OFFICE/OUTPATIENT VISIT EST Diagnosis: Dysuria[ICD10: R30.0] Diagnosis: Irregular menstruation, unspecified[ICD10: N92.6] Josefa TALAMANTES DO [facility] CPT-4: 10422 06/06/2017 ([id number]) OFFICE/OUTPATIENT VISIT EST Diagnosis: Irregular menstruation, unspecified[ICD10: N92.6] Josefa TALAMANTES DO [facility] CPT-4: 33733 01/04/2017 ([id number]) PREV VISIT EST AGE 18-39 Diagnosis: Encounter for general adult medical examination without abnormal findings[ICD10: Z00.00] Diagnosis: Encounter for gynecological examination (general) (routine) without abnormal findings[ICD10: Z01.419] Diagnosis: Gastro-esophageal reflux disease without esophagitis[ICD10: K21.9] Diagnosis: Dysphagia, pharyngeal phase[ICD10: R13.13] Josefa TALAMANTES [employer] [facility] CPT-4: 61455 10/18/2016 ([id number]) OFFICE/OUTPATIENT VISIT EST Diagnosis: Irregular menstruation, unspecified[ICD10: N92.6] Josefa TALAMANTES DO [facility] CPT-4: 69714 10/12/2016 ([id number]) OFFICE/OUTPATIENT VISIT EST Diagnosis: Fever, unspecified[ICD10: R50.9] Diagnosis: Influenza due to identified novel influenza A virus with other respiratory manifestations[ICD10: J09.X2] Catrina Bran JOSEFA TALAMANTES DO [facility] CPT-4: 87389 08/08/2016 ([id number]) OFFICE/OUTPATIENT VISIT EST Diagnosis: Irregular menstruation, unspecified[ICD10: N92.6] Josefa TALAMANTES DO [facility] CPT-4: 26479 07/25/2016 ([id number]) OFFICE/OUTPATIENT VISIT EST Diagnosis: Right upper quadrant pain[ICD10: R10.11] Diagnosis: Unspecified abdominal pain[ICD10: R10.9] Josefa TALAMANTES DO [facility] CPT-4: 61781 05/15/2016 ([id number]) OFFICE/OUTPATIENT VISIT EST Diagnosis: Irregular menstruation, unspecified[ICD10: N92.6] Josefa TALAMANTES DO [facility] CPT-4: 07644 05/03/2016 ([id number]) OFFICE/OUTPATIENT VISIT EST Diagnosis: Irregular menstruation, unspecified[ICD10: N92.6] Josefa TALAMANTES DO [facility] CPT-4: 76026 02/20/2016 OFFICE/OUTPATIENT VISIT EST Diagnosis: Cutaneous abscess of buttock[ICD10: L02.31] Kitty Caldera JOSEFA TALAMANTES DO [facility] CPT-4: 14892 12/23/2015 ([id number]) OFFICE/OUTPATIENT VISIT EST Diagnosis: Irregular menstruation, unspecified[ICD10: N92.6] Josefa TALAMANTES DO [facility] CPT-4: 13777 11/07/2015 ([id number]) OFFICE/OUTPATIENT VISIT EST Diagnosis: Irregular menstruation, unspecified[ICD10: N92.6] Josefa TALAMANTES DO [facility] CPT-4: 02212 08/01/2015 ([id number]) OFFICE/OUTPATIENT VISIT EST Diagnosis: Irregular menstruation, unspecified[ICD10: N92.6] Josefa TALAMANTES DO [facility] CPT-4: 24428 05/11/2015 ([id number]) OFFICE/OUTPATIENT VISIT EST Diagnosis: Irregular menstruation, unspecified[ICD10: N92.6] Josefa TALAMANTES DO [facility] CPT-4: 37688 02/16/2015 OFFICE/OUTPATIENT VISIT EST Diagnosis: SINUSITIS, ACUTE[ICD9: 461.9] Malgorzata TALAMANTES DO [facility] CPT-4: 24126 01/26/2015 ([id number]) OFFICE/OUTPATIENT VISIT EST Diagnosis: IRREGULAR MENSTRUATION[ICD9: 626.4] Josefa TALAMANTES DO [facility] CPT-4: 25285 11/29/2014 ([id number]) OFFICE/OUTPATIENT VISIT EST Diagnosis: IRREGULAR MENSTRUATION[ICD9: 626.4] Josefa TALAMANTES DO [facility] CPT-4: 68670 09/09/2014 ([id number]) OFFICE/OUTPATIENT VISIT EST Diagnosis: IRREGULAR MENSTRUATION[ICD9: 626.4] Diagnosis: General counseling and advice on contraceptive management[ICD9: V25.09] Diagnosis: Anxiety and depression[ICD9: 300.4] Malgorzata ALANIZ SMaria Teresa TALAMANTES [facility] CPT-4: 55283 06/16/2014 OFFICE/OUTPATIENT VISIT EST Diagnosis: Right upper quadrant pain[ICD9: 789.01] Malgorzata TALAMANTES DO [facility] CPT-4: 95466 01/28/2014 OFFICE/OUTPATIENT VISIT EST Diagnosis: Right upper quadrant pain[ICD9: 789.01] Malgorzata REBOLLARNDNENA [facility] CPT-4: 78763 12/10/2013 OFFICE/OUTPATIENT VISIT EST Diagnosis: Anxiety and depression[ICD9: 300.4] Malgorzata ALANIZ S. KETURAHNDNENA [facility] CPT-4: 06195 10/20/2013 OFFICE/OUTPATIENT VISIT EST Diagnosis: Menorrhagia[ICD9: 626.2] Malgorzata BULL MIGUEL [facility] CPT-4: 73183 10/07/2013 OFFICE/OUTPATIENT VISIT EST Diagnosis: IRREGULAR MENSTRUATION[ICD9: 626.4] Malgorzata ALANIZ SMaria Teresa REBOLLARNDNENA [facility] CPT-4: 70117 09/15/2013 OFFICE/OUTPATIENT VISIT EST Diagnosis: HEMATURIA NOS[ICD9: 599.70] Diagnosis: Abdominal discomfort in right upper quadrant[ICD9: 789.01] Malgorzata TALAMANTES DO [facility] CPT-4: 61860 06/24/2013 ([id number]) OFFICE/OUTPATIENT VISIT EST Diagnosis: ABDOMINAL PAIN[ICD9: 789.00] Diagnosis: GERD[ICD9: 530.81] Josefa TALAMANTES DO [facility] CPT-4: 49361 03/05/2013 OFFICE/OUTPATIENT VISIT EST Diagnosis: General counseling and advice on contraceptive management[ICD9: V25.09] Diagnosis: IRREGULAR MENSTRUATION[ICD9: 626.4] Malgorzata TALAMANTES DO [facility] CPT-4: 59284 02/09/2013 ([id number]) OFFICE/OUTPATIENT VISIT EST Justine TALAMANTES DO [facility] CPT-4: 86278 09/08/2010 ([id number]) OFFICE/OUTPATIENT VISIT EST Justine TALAMANTES DO [facility] CPT-4: 30562 07/24/2010 Plan of Care Planned Activity Notes [...] R87.619 12/01/2019 Patient Education: Diclegis- [employer] Johana [id number] [email or web address]://[email or web address]/samplemd/resources/getResource/61/[email or web address] Completed 12/01/2019 Appointment: Josefa Talamantes WPtel: [phone] [phone] [place] INJECTION 11/19/2019 Care Plan: 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 ICD-9 : 616.10 ICD-10 : N76.0 11/16/2019 Visit Diagnosis Plan: Encounter for gyne cological examination (general) (routine) with abnormal findings Discussion: fasting labs to be completed this week at [facility]. order written and given to patient. [...] ICD-10 : R60.0 11/16/2019 Appointment: Keyanna Mejía [address] [place], [place] [address] Annual Well Visit 11/16/2019 Visit Diagnosis Plan: Urethritis Discussion: Diflucan and topical nystatin ICD-9 : 597.80 ICD-10 : N34.2 07/07/2019 Visit Diagnosis Plan: History of renal stone Discussio n: Flomax Push water If not improving within 48hrs or if worsening then will need CT scan to assess for stone ICD-9 : V13.01 ICD-10 : Z87.442 07/07/2019 Appointment: Josefa Talamantes WPtel: Formerly named [facility] ACUTE ILLNESS 07/07/2019 Patient Education: nystatin- [employer] Coupon [id number] [email or web address]://[email or web address]/samplemd/resources/getResource/61/[email or web address] Completed 07/07/2019 Appointment: Josefa Talamantes WPtel: [address] [place], [place] [phone] [place] UA 06/15/2019 Visit Diagnosis Plan: Dysuria Discussion: due to recur rent pain and worsening symptoms, rocephin 1 gm given in office. will send urine off for culture and call on saturday if any changes needed. instructed to push fluids through the w eekend and go to urgent care with any worsening. ICD-9 : 788.1 ICD-10 : R30.0 06/05/2019 Appointment: Keyanna Mejía [address] [place] [address] FOLLOW UP 06/05/2019 Visit Diagnosis Plan: Left [...] ICD-10 : M25.532 03/16/2019 Appointment: Keyanna Mejía [address] [place] [address] Hospital Follow Up 03/16/2019 Appointment: Josefa Talamantes WPtel: [address] [place], [place] [phone] [place] UA 03/02/2019 Appointment: Josefa Talamantes WPtel: [address] [place], [place] [phone] [place] INJECTION 02/16/2019 Appointment: Josefa Talamantes WPtel: [address] [place], [place] [phone] [place] INJECTION 05/21/2018 Visit Diagnosis Plan: Nontoxic [...] performed in office and negative. 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 and bring back to [...] ICD-10 : K13.0 03/03/2018 Appointment: Keyanna Mejía [address] [place] [address] [place] ACUTE ILLNESS 03/03/2018 Patient Education: Patient Medication Summary Completed 03/03/2018 Care Plan: US EXAM OF HEAD AND NECK thyroid LOIN C : 26970-3 Pending 03/03/2018 Appointment: Josefa Talamantestel: [address] [place], [place] [phone] [place] CANCELED 02/27/2018 Appointment: Josefa Talamantes WPtel: [address] [place], [place] [phone] [place] INJECTION 11/26/2017 Patient Education: Patient Medication Summary Completed 11/26/2017 Appointment: Josefa Talamantes WPtel: [address] [place], [place] [phone] [place] INJECTION 08/27/2017 Patient Education: Patient Medication Summary Completed 08/27/2017 Appointment: Josefa Talamantes WPtel: [address] [place], [place] [phone] [place] INJECTION 06/06/2017 Patient Education: Patient Medication Summary Completed 06/06/2017 [phone] [facility] [facility] 01/04/2017 Patient Education: Patient Medication Summary Completed 01/04/2017 Appointment: Jose[facility] [place] 11/19 lm `sl 11/21 lm `sl NO SHOW 11/22/19 17 Patient Education: Patient Medication Summary Completed 10/22/2016 Care Plan: US EXAM OF HEAD AND NECK Thyroid Ultrasound LOIN C : 51625-0 Pending 10/22/2016 Visit Diagnosis Plan: Gastro-esophageal reflux [...] : R13.13 10/18/2016 Appointment: Josefa Talamantes WPtel: [address] [place], [place] [address] [place] 6 lm `sl Annual Well Visit 10/18/2016 Patient Education: Patient Medication Summary Completed 10/18/2016 Appointment: Jose[facility]amatnes [facility]Ptel[facility] [phone] [facility] [place] [facility]JECTION 10/12/2016 Patient Education: Patient Medication Summary Completed 10/12/2016 Visit Diagnosis Plan: Influenza due to i dentified novel influenza A virus with other respiratory manifestations Discussion: Flu A positive Rx as above Supportive care otherwise Contagious precautions discussed Notify kids' provider of exposure for their instructions ICD-9 : 488.02 ICD-10 : J09.X2 08/08/2016 Appointment: Catrina Bran [address] [facility] [place] ACUTE ILLNESS 08/08/2016 Patient Education: Patient Medication Summary Completed 08/08/2016 Appointment: Josefa Talamantes WPtel: [address] [place], [place] [id number] [place] INJECTION 07/25/2016 Patient Education: Patient Medication Summary Completed 07/25/2016 Visit Plan: Finish abx and then recultur e 48hrs after completion Add levsin and zorvolex 05/15/2016 Appointment: Josefa Talamantes WPtel: [address] [place] [id number] [place] / lm ` 05/15 confirmed~ Hospital Follow Up 0 05/15/2016 Patient Education: Patient Medication Summary Completed 05/15/2016 Appointment: Catrina Bran [address] [place], [place] [address] 05/09 admitted into the hospital last night~ ACUTE ILLNESS 05/09/2016 Appointment: Josefa Talamantes WPtel: [address] [place] [address] [place] INJECTION 05/03/2016 Patient Education: Patient Medication Summary Completed 05/03/2016 Appointment: Josefa Talamantes WPtel: [address] [place] [id number] [place] INJECTION 02/20/2016 Patient Education: Patient Medication Summary Completed 02/20/2016 Visit Plan: ERx for Bactrim and Bactroba n [facility] to [facility] 50mg 1 po q 4-6 hours prn pain #20 Warm moist heat to area qid Watch for s/s of worsening, go to UC over weekend Discussed SE of meds including s/s of SJS which would require an ER visit C&S obtained 12/23/2015 Appointment: Kitty Caldera WPtel: [address] [place], [place] [phone] [place] ACUTE ILLNESS 12/23/2015 Patient Education: Patient Medication Summary Completed 12/23/2015 Appointment: Josefa Talamantes WPtel: [address] [place], [place] [phone] [place] INJECTION 11/07/2015 Patient Education: Patient Medication Summary Completed 11/07/2015 Appointment: Josefa Talamantes WPtel: [address] [place], [place] [phone] [place] INJECTION 08/01/2015 Patient Education: Patient Medication Summary Completed 08/01/2015 Appointment: Josefa Talamantes WPtel: [address] [place], [place] [phone] [place] INJECTION 05/11/2015 Patient Education: Patient Medication Summary Completed 05/11/2015 Appointment: Malgorzata Islas WPtel: [address] [place], [place] [phone] [place] PAP 04/05/2015 Appointment: Josefa Talamantes WPtel: [address] [place], [place] [phone] [place] INJECTION 02/16/2015 Patient Education: Patient Medication Summary Completed 02/16/2015 Visit Plan: Daily nasal saline rinses Fl onase nasal spray and daily Zyrtec Medrol dose pack Z-jhonathan as directed 01/26/2015 Appointment: Malgorzata Islas WPtel: [address] [place], [place] [phone] [place] ACUTE ILLNESS 01/26/2015 Patient Education: Patient Medication Summary Completed 01/26/2015 Appointment: Josefa Talamantes WPtel: [address] [place], [place] [phone] [place] INJECTION 11/29/2014 Patient Education: Patient Medication Summary Completed 11/29/2014 Appointment: Josefa Talamantes WPtel: [address] [place], [place] [phone] [place] INJECTION 09/09/2014 Patient Education: Patient Medication Summary Completed 09/09/2014 Appointment: Malgorzata Islas WPtel: [address] [place], [place] [phone] [place] FOLLOW UP 06/16/2014 Patient Education: Patient Medication Summary Completed 06/16/2014 Appointment: Malgorzata Islas WPtel: [address] [place], [place] [id number] 06/02/14 appointment scheduled 06/03/14 no showed PAP 06/03/2014 Appointment: RichFabricioRolandosa Reese WPtel: [address] [place], [place] [id number] FOLLOW UP 01/28/2014 Patient Education: Patient Medication Summary Completed 01/28/2014 Care Plan: COMPREH[place] : [address]-5 Ordered 01/28/2014 Care Plan: AMYLASE Pending 4 Appointment: Malgorzata Islas WPtel: [address] [place], [place] [phone] [place] FOLLOW UP 12/10/2013 Patient Education: Patient Medication Summary Completed 12/10/2013 Appointment: Malgorzata Islas WPtel: [address] [place], [place] [phone] 11/11 vm 11/12 No Show FOLLOW UP 11/12/2013 Appointment: Malgorzata Islas WPtel: [address] [place], [place] [phone] FOLLOW UP 10/20/2013 Patient Education: Patient Medication Summary Completed 10/20/2013 Visit Plan: Quantitative Hcg and CBC tod ay. Transvaginal/Transabdominal sonogram stat Discussed with GROUP SALES REPRESENTATIVE and [facility] 343 so will recheck in 1week as long as not worsening 10/07/2013 Appointment: Malgorzata Islas WPtel: [address] [place], [place] [phone] ACUTE ILLNESS 10/07/2013 Patient Education: Patient Medication Summary Completed 10/07/2013 Appointment: Malgorzata Islas WPtel: [address] [place], [place] [phone] ACUTE ILLNESS 09/15/2013 Patient Education: Patient Medication Summary Completed 09/15/2013 Appointment: Malgorzata Islas WPtel: [address] [place], [place] [phone] ACUTE ILLNESS 06/24/2013 Patient Education: Patient Medication Summary Completed 06/24/2013 Appointment: Malgorzata Islas WPtel: [address] [place] [address] appt was scheduled today then patient no showed the visit ACUTE ILLNESS 05/21/2013 Visit Plan: Check CMP, CBC, UA CT scan o f abdomen Omeprazole 03/05/2013 Appointment: Josefa Talamantes WPtel: [address] [place] [address] ACUTE ILLNESS 03/05/2013 Appointment: Josefa Talamantes WPtel: [address] [place] [address] 03/02 canceled, wrong patient FOLLOW UP Patient Education: Patient Medication Summary Completed 03/05/2013 Appointment: Malgorzata Islas WPtel: [address] [place] [address] ACUTE ILLNESS 02/09/2013 Patient Education: Patient Medication Summary Completed 02/09/2013 Appointment: Justine Ortega WPtel: [address] [place] [address] ACUTE ILLNESS 09/08/2010 Patient Education: Patient Medication Summary Completed 09/08/2010 Appointment: Justine Ortega WPtel: [address] [place] [address] PAP 08/08/2010 Appointment: Justine Ortega WPtel: [address] [place] [address] ACUTE ILLNESS 07/24/2010 Patient Education: Patient Medication Summary Completed 07/24/2010 Visit Plan: All warts shaved with 11-rekha de scalpel and then cryotherapy x3 Will followup with DNCB treatment 03/08/2010 Appointment: Josefa Talamantes WPtel: [address] [place] [address] ACUTE ILLNESS 03/08/2010 Patient Education: Patient Medication Summary Completed 03/08/2010 Appointment: Josefa Talamantes WPtel: [address] [id number] [place] PAP 09/14/2009 Referral: Roney Galloway WPtel: [address] [facility] 3 [id number] [place] Referral Initiated Referral: Mariel Brian Reese WPtel: [address] [id number] [place] Referral Initiated Referral: Referral Initiated Instructions [...] CBC today. Transvaginal/Transabdominal sonogram stat Discussed with GROUP SALES REPRESENTATIVE and [facility] 343 so will recheck in [...]
--- OUTSIDE RECORDS SUMMARY | 2019-12-11 21:57 | XMS REPORT | CCD ---
Author Author Brenda Talamantes D.O. Organization JOSEFA TALAMANTES DO [facility] Address [address] [place] [address] Phone Care Team Providers Care Telehealth Case Manager Name Role Phone Josefa Talamantes D.O., PP Unavailable CCM Unavailable Summary Purpose Interface Exchange Insurance Providers Payer name Policy type / Coverage type Covered constitution party ID Effective Begin Date Effective End Date [facility] [facility] Commercial Insurance [id number] Unknown Family History Family History data not found Social History Social History Element Codes Description Effective Dates Tobacco history SNOMED CT: 062795771 Unknown if ever smoked 01/12 Allergies, Adverse [...] Diclegis 10 mg-10 mg tablet,delayed release RxNorm: 2110882 2 Tablet(s) Oral QPM 12/01/2019 02/29/2020 Active vitamin E 400 unit capsule RxNorm: 313812 1 Capsule(s) Oral QD 11/10 No Stop Date Active metronidazole 500 mg tablet RxNorm: 346284 1 Tablet(s) Oral two times a day 11/17/2019 11/16/2019 Inactive metronidazole 500 mg tablet RxNorm: 368680 1 Tablet(s) Oral two times a day 11/17/2019 11/24/2019 Inactive Depo-Provera 150 mg/mL intramuscular suspension RxNorm: 1000 128 1 Application Intramuscular 11/16/2019 No Stop Date Active Diflucan 100 mg tablet RxNorm: 277153 1 Tablet(s) Oral QD 07/07/2019 07/14/2019 Inactive Flomax 0.4 mg capsule RxNorm: 739754 1 Capsule(s) Oral QPM for kidney stone 07/07/2019 08/06/2019 Inactive nystatin 100,000 unit/gram topical cream RxNorm: 942448 Application Topical two times a day to periurethral area 07/07/2019 11/16/2019 Inactive Bactrim DS 800 mg-160 mg tablet RxNorm: 626709 1 Tablet(s) Oral two times a day 06/08/2019 06/13/2019 Inactive Bactrim DS 800 mg-160 mg tablet RxNorm: 367711 1 Tablet(s) Oral two times a day 06/08/2019 06/07/2019 Inactive ibuprofen 800 mg tablet RxNorm: 718679 1 Tablet(s) Oral Q8H as needed 03/16/2019 06/05/2019 Inactive Cipro 500 mg tablet RxNorm: 390533 1 Tablet(s) Oral two times a day 03/04/2019 03/11/2019 Inactive Cipro 500 mg tablet RxNorm: 632975 1 Tablet(s) Oral two times a day 03/04/2019 03/03/2019 Inactive Macrobid 100 mg capsule RxNorm: 633762 1 Capsule(s) Oral two ti mes a day 02/16/2019 02/15/2019 Inactive Macrobid 100 mg capsule RxNorm: 520713 1 Capsule(s) Oral two ti mes a [...] 11/24/2017 Inactive Pepcid 40 mg tablet RxNorm: 881051 1 Tablet(s) PO QD 10/18/201603/02 Inactive Depo-Provera 150 mg/mL intramuscular suspension RxNorm: 1000 128 Milliliter(s) 1 Milliliter(s) IM 10/10/2016 06/04/2017 Inactive Tamiflu 75 mg capsule RxNorm: 175336 1 Capsule(s) PO BID 08/08/2016 0 08/12/2016 Inactive Levsin 0.125 mg tablet RxNorm: 9009157 1 Tablet(s) PO TID for fl ank pain 05/15/2016 10/17/2016 Inactive Bactrim DS 800 mg-160 mg tablet RxNorm: 859793 1 Tablet(s) PO BID 0 12/23/2015 01/01/2016 Inactive mupirocin 2 % topical ointment RxNorm: 787688 Application TOP TID 0 12/23/2015 12/29/2015 Inactive Depo-Provera 150 mg/mL intramuscular suspension RxNorm: 1000 128 Milliliter(s) 1 Milliliter(s) IM 11/08/2015 10/09/2016 Inactive Xanax 0.25 mg tablet RxNorm: 555518 TAKE ONE-HALF TO ON E TABLET BY MOUTH NEEDED FOR ANXIETY 04/11/2015 05/10/2015 Inactive Generic For:X ANAX 0.25 MG TABLET 04/11/2015 2:54:57 PM Depo-Provera 150 mg/mL intramuscular suspension RxNorm: 1000 128 Milliliter(s) 1 Milliliter(s) IM 02/15/2015 11/07/2015 Inactive azithromycin 250 mg tablet RxNorm: 070038 2 Tablet(s) P O today, then one tablet on days 2 - 5 01/26/2015 12/22/2015 Inactive Medrol (Jhonathan) 4 mg tablets in a dose pack RxNorm: 985234 Tablet(s) P O 01/26/2015 12/22/2015 Inactive Depo-Provera 150 mg/mL intramuscular suspension RxNorm: 1000 128 1 Milliliter(s) IM 09/06/2014 02/15/2015 Inactive Xanax 0.25 mg tablet RxNorm: 176607 1/2 - 1 Tablet(s) PO as nee ded for anxiety 06/16/2014 04/12/2015 Inactive Zoloft 50 mg tablet RxNorm: 235201 1 Tablet(s) PO QD 06/16/201412/21 Inactive Flexeril [...] 2014 Inactive Xanax 0.25 mg tablet RxNorm: 037236 1/2 - 1 Tablet(s) PO as nee ded for anxiety 01/28/2014 06/15/2014 Inactive naproxen 500 mg tablet RxNorm: 622573 1 Tablet(s) PO BID 12/10/2013 0 01/08/2014 Inactive Zoloft 50 mg tablet RxNorm: 092170 1 Tablet(s) PO QD 12/10/201304/08 Inactive Xanax 0.25 mg tablet RxNorm: 929449 1/2 - 1 Tablet(s) PO as nee ded for anxiety 12/10/2013 01/27/2014 Inactive Xanax 0.25 mg tablet RxNorm: 296881 1 Tablet(s) PO Q8H 10/20/2013 Inactive Zoloft 50 mg tablet RxNorm: 962923 1/2 Tablet(s) PO x 6 days then on1 tablet daily 10/20/2013 11/18/2013 Inactive Loestrin Fe 06/01 (28) 1 mg-20 mcg tablet RxNorm: 0477174 1 Table t(s) PO QD 10/20/2013 05/03/2014 Inactive phenazopyridine 100 mg tablet RxNorm: 1018377 1 Tablet(s) PO Q8H 06/26/2013 Inactive Macrobid 100 mg capsule RxNorm: 727538 1 Capsule(s) PO BID 06/25/19 14 07/04/2013 Inactive phenazopyridine 100 mg tablet RxNorm: 7271894 1 Tablet(s) PO Q8H 06/24/2013 Inactive Macrobid 100 mg capsule RxNorm: 569890 1 Capsule(s) PO BID 07/25/19 11 08/02/2010 Inactive Apri 0.15 mg-30 mcg tablet RxNorm: 143452 1 Tablet(s) PO QD As directed. No Start Date 06/23/2013 Inactive omeprazole 40 mg capsule,delayed release RxNorm: 882964 1 Capsule(s) PO QD for stomach No Start Date 06/23/2013 Inactive naproxen 500 mg tablet RxNorm: 990572 1 Tablet(s) PO BID No Start D ate 06/15/2014 Inactive hydrocodone 10 mg-acetaminophen 325 mg tablet RxNorm: 885717 Tablet(s) PO as needed for pain No Start Date 12/22/2015 Inactive Zoloft 50 mg tablet RxNorm: 667612 1 Tablet(s) PO QD No Start Date Inactive hydrocodone 5 mg-acetaminophen 325 mg tablet RxNorm: 499694 1 Tablet(s) PO QID as needed for pain No Start Date 09/14/2013 Inactive Medication Administered No Medication Administered data Immunizations No Immunization data Results Observation Observation Code Item Item Code Result Date S ervice Location V [facility] [id number] Whiff TNP:Duplicate Order 11/17/19 20 Unknown V [facility] [id number] WBC Vaginal TNP:Duplicate Order 2019 Unknown V [facility] [id number] CORRUGATOR MACHINE OPERATOR Lactobac TNP:Duplicate Order 2019 Unknown V [facility] [id number] Clue Cells TNP:Duplicate Order 020 Unknown V [facility] [id number] CORRUGATOR MACHINE OPERATOR Curved GNR TNP:Duplicate Order 11/2019 Unknown V [facility] [id number] Yeast Vaginal TNP:Duplicate Order 11/2019 Unknown V PROF SWB [id number] CORRUGATOR MACHINE OPERATOR SM GVB TNP:Duplicate Order 11/17/19 20 Unknown V PROF SWB [id number] CORRUGATOR MACHINE OPERATOR Swb Trich Ag TNP:Duplicate Order Unknown V PROF SWB [id number] CORRUGATOR MACHINE OPERATOR BV Stain TNP:Duplicate Order 2019 Unknown V PROF SWB [id number] CORRUGATOR MACHINE OPERATOR Interp TNP:Duplicate Order 11/17/19 20 Unknown V PROF SWB [id number] Conf BV Stain TNP:Duplicate Order 11/2019 Unknown V PROF SWB [id number] Whiff Positive 11/17/2019 Unknown V PROF SWB [id number] WBC Vaginal Few 11/17/2019 Unknow n V PROF SWB [id number] Clue Cells >20% 11/17/2019 Unknown V PROF SWB [id number] Yeast Vaginal None 11/17/2019 Unkn own V PROF SWB [id number] CORRUGATOR MACHINE OPERATOR Swb Trich Ag Negative 11/17/2019 Un known V PROF SWB [id number] CORRUGATOR MACHINE OPERATOR BV Stain 10 11/17/2019 Unknow n V PROF SWB [id number] CORRUGATOR MACHINE OPERATOR Interp Results indicate Bacteria l Vaginosis Syndrome. 11/17/2019 Unknown VAG PROF [id number] PH TNP:Improper Specimen 020 Unknown VAG PROF [id number] Whiff TNP:Improper Specimen 020 Unknown VAG PROF [id number] WBC Vaginal TNP:Improper Specimen 11/15 Unknown VAG PROF [id number] Clue Cells TNP:Improper Specimen 2019 Unknown VAG PROF [id number] CORRUGATOR MACHINE OPERATOR Lactobac TNP:Improper Specimen 11/15 Unknown VAG PROF [id number] CORRUGATOR MACHINE OPERATOR Curved GNR TNP:Improper Specimen 10/2019 Unknown VAG PROF [id number] Yeast Vaginal TNP:Improper Specimen 10/2019 Unknown VAG PROF [id number] CORRUGATOR MACHINE OPERATOR SM GVB TNP:Improper Specimen 020 Unknown VAG PROF [id number] Trichomonas TNP:Improper Specimen 11/15 Unknown VAG PROF [id number] CORRUGATOR MACHINE OPERATOR BV Stain TNP:Improper Specimen 11/15 Unknown VAG PROF [id number] CORRUGATOR MACHINE OPERATOR Intp TNP:Improper Specimen 020 Unknown VAG PROF [id number] Conf BV Stain TNP:Improper Specimen 10/2019 Unknown LIPASE 50428 LIPASE 14 IU/L 01/28/2014 Unknown COMPLETE BLOOD COUNT [id number] WBC 6.5 10e9/L 01/29/20 14 Unknown COMPLETE BLOOD COUNT [id number] RBC 4.54 10e12/L 2013 Unknown COMPLETE BLOOD COUNT [id number] HGB 12.1 g/dL 4 Unknown COMPLETE BLOOD COUNT [id number] HCT DET 38.0 % 4 Unknown COMPLETE BLOOD COUNT [id number] MCV 83.7 fL 4 Unknown COMPLETE BLOOD COUNT [id number] MCH 26.7 pg 4 Unknown COMPLETE BLOOD COUNT [id number] MCHC 31.8 g/dL 4 Unknown COMPLETE BLOOD COUNT 0980065 PLT 218 10e9/L 01/29/20 14 Unknown COMPLETE BLOOD COUNT [id number] MPV 12.8 fL 4 Unknown COMPLETE BLOOD COUNT [id number] RACHNA % 56.5 % 4 Unknown COMPLETE BLOOD COUNT [id number] LY % 32.3 % 4 Unknown COMPLETE BLOOD COUNT [id number] MON % 8.6 % 4 Unknown COMPLETE BLOOD COUNT [id number] EOS % 2.1 % 4 Unknown COMPLETE BLOOD COUNT [id number] BASO % 0.5 % 4 Unknown COMPLETE BLOOD COUNT [id number] RDW 18.4 % 4 Unknown COMPLETE BLOOD COUNT [id number] ABS RACHNA 3.67 10e9/L 014 Unknown COMPLETE BLOOD COUNT [id number] ABS LYMPH 2.10 10e9/L 014 Unknown COMPLETE BLOOD COUNT [id number] ABS MONO 0.56 10e9/L 014 Unknown COMPLETE BLOOD COUNT [id number] ABS EOS 0.14 10e9/L 014 Unknown COMPLETE BLOOD COUNT [id number] ABS BASO 0.03 10e9/L 014 Unknown COMPLETE BLOOD COUNT [id number] RDW-SD 55.5 fL 4 Unknown COMPREHENSIVE METABOLIC 69167 AST 13 U/L 2013 Unknown COMPREHENSIVE METABOLIC 73643 ALT 7 IU/L 2013 Unknown COMPREHENSIVE METABOLIC 91012 BUN 8 MG/DL 2013 Unknown COMPREHENSIVE METABOLIC 97191 ALBUMIN 4.5 GM/DL 2013 Unknown COMPREHENSIVE METABOLIC 19690 CHLORIDE 106 MMOL/L 01/28 Unknown COMPREHENSIVE METABOLIC 29434 BILI TOT 0.4 MG/DL 2013 Unknown COMPREHENSIVE METABOLIC 74246 ALK PHOS 55 U/L 2013 Unknown COMPREHENSIVE METABOLIC 99185 SODIUM 138 MMOL/L 01/28 Unknown COMPREHENSIVE METABOLIC 02221 CREATININE 0.73 MG/DL 01/11 Unknown COMPREHENSIVE METABOLIC 51695 CALCIUM 9.9 MG/DL 2013 Unknown COMPREHENSIVE METABOLIC 61606 POTASSIUM 3.8 MMOL/L 01/28 Unknown COMPREHENSIVE METABOLIC 53447 PROT TOT 7.4 GM/DL 2013 Unknown COMPREHENSIVE METABOLIC 06950 Glucose 96 MG/DL 2013 Unknown COMPREHENSIVE METABOLIC 91653 BICARB 27 MMOL/L 2013 Unknown COMPREHENSIVE METABOLIC 47249 ANION GAP 5 MEQ/L 2013 Unknown AMYLASE 74494 AMYLASE 42 IU/L 01/28/2014 Unknown GFR CALC 0467131 GFR AA >60 ML/MIN 01/28/2014 Unknown GFR CALC [id number] GFR NON-AA >60 ML/MIN 01/28/2014 Unknown Procedures Procedure Codes Date URINE TEST CPT-4: 39403 12/01/2019 THER/PROPH/DIAG INJ SC/IM CPT-4: 11096 11/19/2019 URINE TEST CPT-4: 51207 11/16/2019 SPECIMEN HANDLING OFFICE-LAB CPT-4: 59705 11/16/2019 URINE CULTURE/ COLONY COUNT CPT-4: 35483 06/15/2019 URINALYSIS NONAUTO W/O SCOPE CPT-4: 94331 06/05/2019 CEFTRIAXONE SODIUM INJECTION CPT-4: J0696 06/05/2019 THER/PROPH/DIAG INJ SC/IM CPT-4: 36269 06/05/2019 URINE CULTURE/ COLONY COUNT CPT-4: 56354 06/05/2019 URINE CULTURE/ COLONY COUNT CPT-4: 72585 03/02/2019 THER/PROPH/DIAG INJ SC/IM CPT-4: 80100 02/16/2019 URINE CULTURE/ COLONY COUNT CPT-4: 96006 02/16/2019 URINALYSIS NONAUTO W/O SCOPE CPT-4: 99647 02/16/2019 URINE TEST CPT-4: 84422 02/16/2019 THER/PROPH/DIAG INJ SC/IM CPT-4: 08969 05/21/2018 THER/PROPH/DIAG INJ SC/IM CPT-4: 72097 11/26/2017 THER/PROPH/DIAG INJ SC/IM CPT-4: 84384 08/27/2017 THER/PROPH/DIAG INJ SC/IM CPT-4: 15063 06/06/2017 URINALYSIS NONAUTO W/O SCOPE CPT-4: 37684 06/06/2017 GC/CHLAMYDIA DNA ([facility]) CPT-4: 79040|03237 8 URINE CULTURE/ COLONY COUNT CPT-4: 70257 06/06/2017 THER/PROPH/DIAG INJ SC/IM CPT-4: 30907 01/04/2017 SPECIMEN HANDLING OFFICE-LAB CPT-4: 10867 10/18/2016 THER/PROPH/DIAG INJ SC/IM CPT-4: 20334 10/12/2016 INFLUENZA ASSAY W/OPTIC CPT-4: 90779 08/08/2016 THER/PROPH/DIAG INJ SC/IM CPT-4: 52890 07/25/2016 THER/PROPH/DIAG INJ SC/IM CPT-4: 51862 05/03/2016 THER/PROPH/DIAG INJ SC/IM CPT-4: 79251 02/20/2016 URINE TEST CPT-4: 06664 02/20/2016 AEROBIC WOUND CULTURE & STN CPT-4: 34969 12/23/2015 THER/PROPH/DIAG INJ SC/IM CPT-4: 43865 11/07/2015 URINE TEST CPT-4: 28933 11/07/2015 THER/PROPH/DIAG INJ SC/IM CPT-4: 11998 08/01/2015 THER/PROPH/DIAG INJ SC/IM CPT-4: 65279 05/11/2015 THER/PROPH/DIAG INJ SC/IM CPT-4: 81661 02/16/2015 THER/PROPH/DIAG INJ SC/IM CPT-4: 82320 11/29/2014 THER/PROPH/DIAG INJ SC/IM CPT-4: 82291 09/09/2014 URINE TEST CPT-4: 51845 06/16/2014 THER/PROPH/DIAG INJ SC/IM CPT-4: 95310 06/16/2014 ROUTINE VENIPUNCTURE CPT-4: 04735 10/07/2013 COMPLETE CBC W/AUTO DIFF WBC CPT-4: 87890 10/07/2013 CHORIONIC GONADOTROPIN TEST CPT-4: 51587 10/07/2013 URINE TEST CPT-4: 82577 09/15/2013 URINALYSIS NONAUTO W/O SCOPE CPT-4: 60400 06/24/2013 URINE CULTURE/ COLONY COUNT CPT-4: 73462 06/24/2013 URINE TEST CPT-4: 91336 09/08/2010 URINALYSIS NONAUTO W/O SCOPE CPT-4: 69015 07/24/2010 URINE CULTURE/ COLONY COUNT CPT-4: 87050 07/24/2010 DESTRUCT PREMALG LESION (Cryosurgery) CPT-4: 45381 DESTRUCT PREMALG LES 2-14 CPT-4: 46500 03/08/2010 Vital Signs Date Vital 12/01/2019 Blood Pressure 1: 128/78 Code: 8480-6 Heart Rate 1: 80 bpm Respiratory Rate: 16 bpm SpO2: 98% Temperature: 36.7 (C) / 98.0 (F) We ight: 161 lbs 11/16/2019 Blood Pressure 1: 119/75 Code: 8480-6 BMI: 24.4 Code: 10475-4 Heart Rate 1: 112 bpm Height: 5'9" Respiratory Rate: 15 bpm SpO2: 98% Tempera ture: 36.8 (C) / 98.2 (F) Weight: 165 lbs 07/07/2019 Blood Pressure 1: 126/82 Code: 8480-6 Heart Rate 1: 100 bpm SpO2: 99% Temperature: 36.8 (C) / 98.2 (F) 06/05/2019 Blood Pressure 1: 131/82 Code: 8480-6 BMI: 26.3 Code: 43552-6 Heart Rate 1: 109 bpm Height: 5'9" Respiratory Rate: 16 bpm SpO2: 99% Tempera ture: 36.7 (C) / 98.1 (F) Weight: 178 lbs 03/16/2019 Blood Pressure 1: 132/86 Code: 8480-6 Heart Rate 1: 73 bpm SpO2: 99% Temperature: 36.6 (C) / 97.9 (F) Weight: 158 lbs 03/03/2018 Blood Pressure 1: 120/88 Code: 8480-6 BMI: 23.9 Code: 69783-3 Heart Rate 1: 81 bpm Height: 5'9" Respiratory Rate: 18 bpm SpO2: 99% Tempera ture: 36.1 (C) / 97.0 (F) Weight: 162 lbs 10/18/2016 Blood Pressure 1: 108/ Code: 8480-6 BMI: 22.6 Code: 80045-0 Heart Rate 1: 100 bpm Height: 5'9" Respiratory Rate: 20 bpm SpO2: 98% Tempera ture: 37.1 (C) / 98.8 (F) Weight: 153 lbs 08/08/2016 Blood Pressure 1: 114/ Code: 8480-6 Heart Rate 1: 102 bpm Respiratory Rate: 20 bpm SpO2: 98% Temperature: 36.4 (C) / 97.6 (F) We ight: 152 lbs 05/15/2016 Blood Pressure 1: 124/80 Code: 8480-6 BMI: 23.2 Code: 80512-0 Heart Rate 1: 100 bpm Height: 5'9" Respiratory Rate: 20 bpm Temperature: 37 .0 (C) / 98.6 (F) Weight: 157 lbs 12/23/2015 Blood Pressure 1: 124/78 Code: 8480-6 BMI: 23.0 Code: 96610-7 Heart Rate 1: 92 bpm Height: 5'9" Respiratory Rate: 20 bpm SpO2: 97% Tempera ture: 36.9 (C) / 98.5 (F) Weight: 156 lbs 01/26/2015 Blood Pressure 1: 118/78 Code: 8480-6 BMI: 21.3 Code: 83293-1 Heart Rate 1: 100 bpm Height: 5'9" Respiratory Rate: 20 bpm SpO2: 97% Tempera ture: 36.6 (C) / 97.8 (F) Weight: 144 lbs 06/16/2014 Blood Pressure 1: 118/78 Code: 8480-6 BMI: 23.5 Code: 71726-7 Heart Rate 1: 78 bpm Height: 5'9" Respiratory Rate: 18 bpm Temperature: 36 .1 (C) / 97.0 (F) Weight: 159 lbs 01/28/2014 Blood Pressure 1: 124/78 Code: 8480-6 BMI: 23.2 Code: 85288-6 Heart Rate 1: 88 bpm Height: 5'9" Respiratory Rate: 22 bpm Temperature: 36 .1 (C) / 97.0 (F) Weight: 157 lbs 12/10/2013 Blood Pressure 1: 124/70 Code: 8480-6 BMI: 23.0 Code: 23689-8 Heart Rate 1: 82 bpm Height: 5'9" Respiratory Rate: 20 bpm Temperature: 36 .2 (C) / 97.2 (F) Weight: 156 lbs 10/20/2013 Blood Pressure 1: 118/82 Code: 8480-6 Heart Rate 1: 84 bpm Respiratory Rate: 22 bpm Temperature: 36.5 (C) / 97.7 (F) Weight: 150 lbs 10/07/2013 Blood Pressure 1: 120/80 Code: 8480-6 BMI: 22.2 Code: 32374-0 Heart Rate 1: 68 bpm Height: 5'9" Respiratory Rate: 22 bpm Temperature: 36 .2 (C) / 97.2 (F) Weight: 150 lbs 09/15/2013 Blood Pressure 1: 118/68 Code: 8480-6 BMI: 22.0 Code: 84413-9 Heart Rate 1: 78 bpm Height: 5'9" Respiratory Rate: 20 bpm Temperature: 36 .1 (C) / 97.0 (F) Weight: 149 lbs 06/24/2013 Blood Pressure 1: 112/74 Code: 8480-6 Heart Rate 1: 74 bpm Respiratory Rate: 20 bpm Temperature: 36.6 (C) / 97.9 (F) Weight: 150 lbs 03/05/2013 Blood Pressure 1: 126/88 Code: 8480-6 BMI: 23.5 Code: 65409-7 Heart Rate 1: 80 bpm Height: 5'9" Respiratory Rate: 20 bpm Temperature: 36 .6 (C) / 97.9 (F) Weight: 159 lbs 02/09/2013 Blood Pressure 1: 110/68 Code: 8480-6 BMI: 21.9 Code: 24165-4 Heart Rate 1: 74 bpm Height: 5'9" Respiratory Rate: 22 bpm Temperature: 36 .8 (C) / 98.2 (F) Weight: 148 lbs 09/08/2010 Blood Pressure 1: 124/90 Code: 8480-6 BMI: 21.4 Code: 46828-1 Height: 5'10" Temperature: 36.4 (C) / 97.6 [...] painful Encounters Encounter Performer Location Codes Date ([id number]) OFFICE/OUTPATIENT VISIT EST Diagnosis: Amenorrhea[ICD10: N91.2] Diagnosis: [ICD10: Z34.90] Diagnosis: Abnormal Pap smear of cervix[ICD10: R87.619] Diagnosis: Nausea[ICD10: R11.0] Diagnosis: related nausea, antepartum[ICD10: O26.899] Keyanna HELMS [employer] CPT-4: 80830 12/01/2019 ([id number]) NURSE/OUTPATIENT VISIT EST Diagnosis: Irregular menstruation, unspecified[ICD10: N92.6] Josefa Connors [employer] CPT-4: 06796 11/19/2019 ([id number]) PREV VISIT EST AGE 18-39 Diagnosis: Encounter for gynecological examination (general) (routine) with abnormal findings[ICD10: Z01.411] Diagnosis: Encounter for general adult medical examination without abnormal findings[ICD10: Z00.00] Diagnosis: Vaginitis[ICD10: N76.0] Diagnosis: Left breast mass[ICD10: N63.20] Diagnosis: Dense breast tissue[ICD10: R92.2] Diagnosis: Bilateral lower extremity edema[ICD10: R60.0] Diagnosis: control counseling[ICD10: Z30.09] Keyanna TALAMANTES [employer] CPT-4: 12692 11/16/2019 ([id number]) OFFICE/OUTPATIENT VISIT EST Diagnosis: Urethritis[ICD10: N34.2] Diagnosis: History of renal stone[ICD10: Z87.442] Josefa TALAMANTES DO [facility] CPT-4: 17942 07/07/2019 ([id number]) NURSE/OUTPATIENT VISIT EST Diagnosis: Urinary tract infection[ICD10: N39.0] Josefa TALAMANTES DO [facility] CPT-4: 04683 06/15/2019 ([id number]) OFFICE/OUTPATIENT VISIT EST Diagnosis: Dysuria[ICD10: R30.0] Diagnosis: Pelvic pain in female[ICD10: R10.2] Keyanna TALAMANTES DO [facility] CPT-4: 07302 06/05/2019 ([id number]) OFFICE/OUTPATIENT VISIT EST Diagnosis: Left wrist pain[ICD10: M25.532] Diagnosis: Swelling of left upper extremity[ICD10: M79.89] Keyanna TALAMANTES DO [facility] CPT-4: 04609 03/16/2019 ([id number]) NURSE/OUTPATIENT VISIT EST Diagnosis: Urinary tract infection[ICD10: N39.0] Josefa TALAMANTES DO [facility] CPT-4: 49366 03/02/2019 ([id number]) NURSE/OUTPATIENT VISIT EST Diagnosis: Irregular menstruation, unspecified[ICD10: N92.6] Diagnosis: Urinary tract infection[ICD10: N39.0] Josefa TALAMANTES DO [facility] CPT-4: 18914 02/16/2019 ([id number]) NURSE/OUTPATIENT VISIT EST Diagnosis: Irregular menstruation, unspecified[ICD10: N92.6] Josefa TALAMANTES DO [facility] CPT-4: 59173 05/21/2018 ([id number]) OFFICE/OUTPATIENT VISIT EST Diagnosis: Irregular menstruation, unspecified[ICD10: N92.6] Diagnosis: Diseases of lips[ICD10: K13.0] Diagnosis: 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] Keyanna TALAMANTES DO [facility] CPT-4: 32359 03/03/2018 ([id number]) NURSE/OUTPATIENT VISIT EST Diagnosis: Irregular menstruation, unspecified[ICD10: N92.6] Josefa TALAMANTES DO [facility] CPT-4: 89930 11/26/2017 ([id number]) OFFICE/OUTPATIENT VISIT EST Diagnosis: Irregular menstruation, unspecified[ICD10: N92.6] Josefa TALAMANTES DO [facility] CPT-4: 60168 08/27/2017 ([id number]) OFFICE/OUTPATIENT VISIT EST Diagnosis: Dysuria[ICD10: R30.0] Diagnosis: Irregular menstruation, unspecified[ICD10: N92.6] Josefa TALAMANTES DO [facility] CPT-4: 17126 06/06/2017 ([id number]) OFFICE/OUTPATIENT VISIT EST Diagnosis: Irregular menstruation, unspecified[ICD10: N92.6] Josefa TALAMANTES DO [facility] CPT-4: 81113 01/04/2017 ([id number]) PREV VISIT EST AGE 18-39 Diagnosis: Encounter for general adult medical examination without abnormal findings[ICD10: Z00.00] Diagnosis: Encounter for gynecological examination (general) (routine) without abnormal findings[ICD10: Z01.419] Diagnosis: Gastro-esophageal reflux disease without esophagitis[ICD10: K21.9] Diagnosis: Dysphagia, pharyngeal phase[ICD10: R13.13] Josefa TALAMANTES [employer] [facility] CPT-4: 40917 10/18/2016 ([id number]) OFFICE/OUTPATIENT VISIT EST Diagnosis: Irregular menstruation, unspecified[ICD10: N92.6] Josefa TALAMANTES DO [facility] CPT-4: 80958 10/12/2016 ([id number]) OFFICE/OUTPATIENT VISIT EST Diagnosis: Fever, unspecified[ICD10: R50.9] Diagnosis: Influenza due to identified novel influenza A virus with other respiratory manifestations[ICD10: J09.X2] Catrina Bran JOSEFA TALAMANTES DO [facility] CPT-4: 53700 08/08/2016 ([id number]) OFFICE/OUTPATIENT VISIT EST Diagnosis: Irregular menstruation, unspecified[ICD10: N92.6] Josefa TALAMANTES DO [facility] CPT-4: 86776 07/25/2016 ([id number]) OFFICE/OUTPATIENT VISIT EST Diagnosis: Right upper quadrant pain[ICD10: R10.11] Diagnosis: Unspecified abdominal pain[ICD10: R10.9] Josefa TALAMANTES DO [facility] CPT-4: 25353 05/15/2016 ([id number]) OFFICE/OUTPATIENT VISIT EST Diagnosis: Irregular menstruation, unspecified[ICD10: N92.6] Josefa TALAMANTES DO [facility] CPT-4: 22811 05/03/2016 ([id number]) OFFICE/OUTPATIENT VISIT EST Diagnosis: Irregular menstruation, unspecified[ICD10: N92.6] Josefa TALAMANTES DO [facility] CPT-4: 84647 02/20/2016 OFFICE/OUTPATIENT VISIT EST Diagnosis: Cutaneous abscess of buttock[ICD10: L02.31] Kitty Caldera JOSEFA TALAMANTES DO [facility] CPT-4: 50140 12/23/2015 ([id number]) OFFICE/OUTPATIENT VISIT EST Diagnosis: Irregular menstruation, unspecified[ICD10: N92.6] Josefa TALAMANTES DO [facility] CPT-4: 64388 11/07/2015 ([id number]) OFFICE/OUTPATIENT VISIT EST Diagnosis: Irregular menstruation, unspecified[ICD10: N92.6] Josefa TALAMANTES DO [facility] CPT-4: 21717 08/01/2015 ([id number]) OFFICE/OUTPATIENT VISIT EST Diagnosis: Irregular menstruation, unspecified[ICD10: N92.6] Josefa TALAMANTES DO [facility] CPT-4: 50768 05/11/2015 ([id number]) OFFICE/OUTPATIENT VISIT EST Diagnosis: Irregular menstruation, unspecified[ICD10: N92.6] Josefa TALAMANTES DO [facility] CPT-4: 82349 02/16/2015 OFFICE/OUTPATIENT VISIT EST Diagnosis: SINUSITIS, ACUTE[ICD9: 461.9] Malgorzata TALAMANTES DO [facility] CPT-4: 73032 01/26/2015 ([id number]) OFFICE/OUTPATIENT VISIT EST Diagnosis: IRREGULAR MENSTRUATION[ICD9: 626.4] Josefa TALAMANETS DO [facility] CPT-4: 63651 11/29/2014 ([id number]) OFFICE/OUTPATIENT VISIT EST Diagnosis: IRREGULAR MENSTRUATION[ICD9: 626.4] Josefa TALAMANTES DO [facility] CPT-4: 73782 09/09/2014 ([id number]) OFFICE/OUTPATIENT VISIT EST Diagnosis: IRREGULAR MENSTRUATION[ICD9: 626.4] Diagnosis: General counseling and advice on contraceptive management[ICD9: V25.09] Diagnosis: Anxiety and depression[ICD9: 300.4] Malgorzata ALANIZ SMaria Teresa TALAMANTES [facility] CPT-4: 45606 06/16/2014 OFFICE/OUTPATIENT VISIT EST Diagnosis: Right upper quadrant pain[ICD9: 789.01] Malgorzata TALAMANTES DO [facility] CPT-4: 33298 01/28/2014 OFFICE/OUTPATIENT VISIT EST Diagnosis: Right upper quadrant pain[ICD9: 789.01] Malgorzata REBOLLARNDNENA [facility] [place] CPT-4: 46731 12/10/2013 OFFICE/OUTPATIENT VISIT EST Diagnosis: Anxiety and depression[ICD9: 300.4] Malgorzata ALANIZ S. KETURAHNDNENA [facility] [place] CPT-4: 10521 10/20/2013 OFFICE/OUTPATIENT VISIT EST Diagnosis: Menorrhagia[ICD9: 626.2] Malgorzata BULL MIGUEL [facility] [place] CPT-4: 10804 10/07/2013 OFFICE/OUTPATIENT VISIT EST Diagnosis: IRREGULAR MENSTRUATION[ICD9: 626.4] Malgorzata ALANIZ SMaria Teresa RE[facility]ARNDNENA [facility] [place] CPT-4: 00864 09/15/2013 OFFICE/OUTPATIENT VISIT EST Diagnosis: HEMATURIA NOS[ICD9: 599.70] Diagnosis: Abdominal discomfort in right upper quadrant[ICD9: 789.01] Malgorzata TALAMANTES DO Nub[facility]io CPT-4: 24332 06/24/2013 ([id number]) OFFICE/OUTPATIENT VISIT EST Diagnosis: ABDOMINAL PAIN[ICD9: 789.00] Diagnosis: GERD[ICD9: 530.81] Josefa TALAMANTES DO Nub[facility]io CPT-4: 85740 03/05/2013 OFFICE/OUTPATIENT VISIT EST Diagnosis: General counseling and advice on contraceptive management[ICD9: V25.09] Diagnosis: IRREGULAR MENSTRUATION[ICD9: 626.4] Malgorzata TALAMANTES DO Nubisio CPT-4: 84781 02/09/2013 ([id number]) OFFICE/OUTPATIENT VISIT EST Justine TALAMANTES DO Nub[facility]io CPT-4: 83023 09/08/2010 ([id number]) OFFICE/OUTPATIENT VISIT EST Justine TALAMANTES DO Nubisio CPT-4: 10776 07/24/2010 Plan of Care Planned Activity Notes Codes Status Date Visit Diagnosis Plan: Amenorrhea Discussion: positive test. ICD-9 : 626.0 ICD-10 : N91.2 12/01/2019 Visit Diagnosis Plan: Abnormal Pap smear of cervix Dis cussion: has appt with dr. moss for further evaluation. ICD-9 : 795.00 ICD-10 : R87.619 12/01/2019 Visit Diagnosis Plan: Discussion: discussed with patient that there are no known effects of toxicity to fetus when depo shot was given early. patient's initial test was neg and then patient had positive test over the weekend. instructed patient to start with vitamin, no more smoking and call office with any concerns. ICD-9 : V22.2 ICD-10 : Z34.90 12/01/2019 Visit Diagnosis Plan: related nausea, antepa rtum Discussion: diclegis to be prescribed but insurance didn't want to cover so instructed on daily vitamin b6. ICD-9 : 643.03 ICD-10 : O26.899 12/01/2019 Patient Education: Diclegis- [employer] Johana [id number] [email or web address] Completed 12/01/2019 Appointment: Josefa Talamantes WPtel: [address] [place] [address] [place] INJECTION 11/19/2019 Care Plan: V PROF BOSE ADD ON TO LABS SENT ON 11/16/2019 Pending 11/17/2019 Visit Diagnosis Plan: Bilateral lower extremity edema Discussion: fasting labs to be completed including thyroid panel. ICD-9 : 782.3 ICD-10 : R60.0 11/16/2019 Visit Diagnosis Plan: Left breast mass Discussion: kasie gnostic mammo and ultrasound ordered. ICD-9 : 611.72 ICD-10 : N63.20 11/16/2019 Visit Diagnosis Plan: control counseling Discuss ion: restart depo. sent to pharmacy for patient to bring to office for injection. in house test neg. ICD-9 : V25.09 ICD-10 : Z30.09 11/16/2019 Visit Diagnosis Plan: Vaginitis Discussion: vaginal pr ofile swab obtained and ordered. ICD-9 : 616.10 ICD-10 : N76.0 11/16/2019 Visit Diagnosis Plan: Encounter for gyne cological examination (general) (routine) with abnormal findings Discussion: fasting labs to be completed this week at [facility]. order written and given to patient. pap and breast exam completed. see other plans. ICD-9 : V72.31 ICD-10 : Z01.411 11/16/2019 Appointment: Keyanna Mejía [address] [place] [address] Annual Well Visit 11/16/2019 Visit Diagnosis Plan: History of renal stone Discussio n: Flomax Push water If not improving within 48hrs or if worsening then will need CT scan to assess for stone ICD-9 : V13.01 ICD-10 : Z87.442 07/07/2019 Visit Diagnosis Plan: Urethritis Discussion: Diflucan and topical nystatin ICD-9 : 597.80 ICD-10 : N34.2 07/07/2019 Appointment: Josefa Talamantes WPtel: [facility] ACUTE ILLNESS 07/07/2019 Patient Education: nystatin- [employer] Coupon [id number] [email or web address] Completed 07/07/2019 Appointment: Josefa Talamantes WPtel: [address] [place], [place] [phone] [place] UA 06/15/2019 Visit Diagnosis Plan: Dysuria Discussion: due to recur rent pain and worsening symptoms, rocephin 1 gm given in office. will send urine off for culture and call on saturday if any changes needed. instructed to push fluids through the w eekend and go to urgent care with any worsening. ICD-9 : 788.1 ICD-10 : R30.0 06/05/2019 Appointment: Keyanna Mejía [address] [place] [address] FOLLOW UP 06/05/2019 Visit Diagnosis Plan: Left [...] ICD-10 : M25.532 03/16/2019 Appointment: Keyanna Mejía [address] [place] [address] Hospital Follow Up 03/16/2019 Appointment: Josefa Talamantes WPtel: [address] [place], [place] [phone] [place] UA 03/02/2019 Appointment: Josefa Talamantes WPtel: [address] [place], [place] [phone] [place] INJECTION 02/16/2019 Appointment: Josefa Talamantes WPtel: [address] [place], [place] [phone] [place] INJECTION 05/21/2018 Visit Diagnosis Plan: Nontoxic [...] performed in office and negative. 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 and bring back to office [...] ICD-10 : K13.0 03/03/2018 Appointment: Keyanna Mejía [address] [place] [address] [place] ACUTE ILLNESS 03/03/2018 Patient Education: Patient Medication Summary Completed 03/03/2018 Care Plan: US EXAM OF HEAD AND NECK thyroid LOIN C : 87423-0 Pending 03/03/2018 Appointment: Josefa Talamantestel: [address] [place], [place] [phone] [place] CANCELED 02/27/2018 Appointment: Josefa Talamantes WPtel: [address] [place], [place] [phone] [place] INJECTION 11/26/2017 Patient Education: Patient Medication Summary Completed 11/26/2017 Appointment: Josefa Talamantes WPtel: [address] [place], [place] [phone] [place] INJECTION 08/27/2017 Patient Education: Patient Medication Summary Completed 08/27/2017 Appointment: Josefa Talamantes WPtel: [address] [place], [place] [phone] [place] INJECTION 06/06/2017 Patient Education: Patient Medication Summary Completed 06/06/2017 Appointment: [phone] [facility] [place] [facility] 01/04/2017 Patient Education: Patient Medication Summary Completed 01/04/2017 App[facility]ment: [facility] [place] 11/19 lm `sl 11/21 lm `sl NO SHOW 11/22/19 17 Patient Education: Patient Medication Summary Completed 10/22/2016 Care Plan: US EXAM OF HEAD AND NECK Thyroid Ultrasound LOIN C : 13244-6 Pending 10/22/2016 Visit Diagnosis Plan: Gastro-esophageal reflux [...] : R13.13 10/18/2016 Appointment: Josefa Talamantes WPtel: [address] [place], [place] [address] [place] 6 lm `sl Annual Well Visit 10/18/2016 Patient Education: Patient Medication Summary Completed 10/18/2016 Appointment: Jose[facility]antes [facility]Ptel[facility] [phone] [facility] [place] [facility]JECTION 10/12/2016 Patient Education: Patient Medication Summary Completed 10/12/2016 Visit Diagnosis Plan: Influenza due to i dentified novel influenza A virus with other respiratory manifestations Discussion: Flu A positive Rx as above Supportive care otherwise Contagious precautions discussed Notify kids' provider of exposure for their instructions ICD-9 : 488.02 ICD-10 : J09.X2 08/08/2016 Appointment: Catrina Bran [address] [facility] [place] ACUTE ILLNESS 08/08/2016 Patient Education: Patient Medication Summary Completed 08/08/2016 Appointment: Josefa Talamantes WPtel: [address] [place], [place] [address] [place] INJECTION 07/25/2016 Patient Education: Patient Medication Summary Completed 07/25/2016 Visit Plan: Finish abx and then recultur e 48hrs after completion Add levsin and zorvolex 05/15/2016 Appointment: Josefa Talamantes WPtel: [address] [place], [place] [address] [place] / lm ` 05/15 confirmed~ Hospital Follow Up 0 05/15/2016 Patient Education: Patient Medication Summary Completed 05/15/2016 Appointment: Catrina Bran [address] [place], [place] [address] 05/09 admitted into the hospital last night~ ACUTE ILLNESS 05/09/2016 Appointment: Josefa Talamantes WPtel: [address] [place], [place] [address] [place] INJECTION 05/03/2016 Patient Education: Patient Medication Summary Completed 05/03/2016 Appointment: Josefa Talamantes WPtel: [address] [place], [place] [address] [place] INJECTION 02/20/2016 Patient Education: Patient Medication Summary Completed 02/20/2016 Visit Plan: ERx for Bactrim and Bactroba n Called to [facility]am 50mg 1 po q 4-6 hours prn pain #20 Warm moist heat to area qid Watch for s/s of worsening, go to UC over weekend Discussed SE of meds including s/s of SJS which would require an ER visit C&S obtained 12/23/2015 Appointment: Kitty Caldera WPtel: [address] [place], [place] [phone] [place] ACUTE ILLNESS 12/23/2015 Patient Education: Patient Medication Summary Completed 12/23/2015 Appointment: Josefa Talamantes WPtel: [address] [place], [place] [phone] [place] INJECTION 11/07/2015 Patient Education: Patient Medication Summary Completed 11/07/2015 Appointment: Josefa Talamantes WPtel: [address] [place], [place] [phone] [place] INJECTION 08/01/2015 Patient Education: Patient Medication Summary Completed 08/01/2015 Appointment: Josefa Talamantes WPtel: [address] [place] [phone] [place] INJECTION 05/11/2015 Patient Education: Patient Medication Summary Completed 05/11/2015 Appointment: Malgorzata Islas WPtel: [address] [place], [place] [phone] [place] PAP 04/05/2015 Appointment: Josefa Talamantes WPtel: [address] [place] [phone] [place] INJECTION 02/16/2015 Patient Education: Patient Medication Summary Completed 02/16/2015 Visit Plan: Daily nasal saline rinses Fl onase nasal spray and daily Zyrtec Medrol dose pack Z-jhonathan as directed 01/26/2015 Appointment: Malgorzata Islas WPtel: [address] [place], [place] [phone] [place] ACUTE ILLNESS 01/26/2015 Patient Education: Patient Medication Summary Completed 01/26/2015 Appointment: Josefa Talamantes WPtel: [address] [place] [phone] [place] INJECTION 11/29/2014 Patient Education: Patient Medication Summary Completed 11/29/2014 Appointment: Josefa Talamantes WPtel: [address] [place], [place] [phone] [place] INJECTION 09/09/2014 Patient Education: Patient Medication Summary Completed 09/09/2014 Appointment: Malgorzata Islas WPtel: [address] [place], [place] [phone] [place] FOLLOW UP 06/16/2014 Patient Education: Patient Medication Summary Completed 06/16/2014 Appointment: Malgorzata Islas WPtel: [address] [place] [address] 06/02/14 appointment scheduled 06/03/14 no showed PAP 06/03/2014 Appointment: RichFabricioRolandosa Reese WPtel: [address] [place] [address] FOLLOW UP 01/28/2014 Patient Education: Patient Medication Summary Completed 01/28/2014 Care Plan: [place] : [address]-3 Ordered 01/28/2014 Care Plan: AMYLASE Pending 4 Appointment: Malgorzata Islas WPtel: [address] [place], [place] [phone] [place] FOLLOW UP 12/10/2013 Patient Education: Patient Medication Summary Completed 12/10/2013 Appointment: Malgorzata Islas WPtel: [address] [place], [place] [phone] 11/11 vm 11/12 No Show FOLLOW UP 11/12/2013 Appointment: Malgorzata Islas WPtel: [address] [place], [place] [phone] FOLLOW UP 10/20/2013 Patient Education: Patient Medication Summary Completed 10/20/2013 Visit Plan: Quantitative Hcg and CBC tod ay. Transvaginal/Transabdominal sonogram stat Discussed with WAREHOUSE RECEIVING SUPERVISOR and [facility] 343 so will recheck in 1week as long as not worsening 10/07/2013 Appointment: Malgorzata Islas WPtel: [address] [place] [phone] ACUTE ILLNESS 10/07/2013 Patient Education: Patient Medication Summary Completed 10/07/2013 Appointment: Malgorzata Islas WPtel: [address] [place] [phone] ACUTE ILLNESS 09/15/2013 Patient Education: Patient Medication Summary Completed 09/15/2013 Appointment: Malgorzata Islas WPtel: [address] [place] [phone] ACUTE ILLNESS 06/24/2013 Patient Education: Patient Medication Summary Completed 06/24/2013 Appointment: Malgorzata Islas WPtel: [address] [place] [address] appt was scheduled today then patient no showed the visit ACUTE ILLNESS 05/21/2013 Visit Plan: Check CMP, CBC, UA CT scan o f abdomen Omeprazole 03/05/2013 Appointment: Josefa Talamantes WPtel: [address] [place] [address] ACUTE ILLNESS 03/05/2013 Appointment: Josefa Talamantes WPtel: [address] [place] [address] 03/02 canceled, wrong patient FOLLOW UP Patient Education: Patient Medication Summary Completed 03/05/2013 Appointment: Malgorzata Islas WPtel: [address] [place] [address] ACUTE ILLNESS 02/09/2013 Patient Education: Patient Medication Summary Completed 02/09/2013 Appointment: Justine Ortega WPtel: [address] [place] [address] ACUTE ILLNESS 09/08/2010 Patient Education: Patient Medication Summary Completed 09/08/2010 Appointment: Justine Ortega WPtel: [address] [place] [address] PAP 08/08/2010 Appointment: Justine Ortega WPtel: [address] [place] [address] ACUTE ILLNESS 07/24/2010 Patient Education: Patient Medication Summary Completed 07/24/2010 Visit Plan: All warts shaved with 11-rekha de scalpel and then cryotherapy x3 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 [id number] [place] Referral Initiated Referral: Referral Initiated Instructions [...] CBC today. Transvaginal/Transabdominal sonogram stat Discussed with WAREHOUSE RECEIVING SUPERVISOR and [facility] 343 so will recheck in [...]
--- OUTSIDE RECORDS SUMMARY | 2019-12-11 21:57 | XMS REPORT | CCD ---
Author Author Brenda Talamantes D.O. Organization JOSEFA TALAMANTES DO [facility] Address [address] [place] [address] Phone Care Team Providers Care Gaggerman Name Role Phone Josefa Talamantes D.O., PP Unavailable CCM Unavailable Summary Purpose Interface Exchange Insurance Providers Payer name Policy type / Coverage type Covered libertarian ID Effective Begin Date Effective End Date [employer] [facility] Commercial Insurance [id number] Unknown Family History Family History data not found Social History Social History Element Codes Description Effective Dates Tobacco history SNOMED CT: 780058580 Unknown if ever smoked 01/12 Allergies, Adverse Reactions, Alerts Substance Reaction Codes Entered Date Inactivated Date Status * NO KNOWN FOOD ALLERGIES Unknown 03/08/2010 No Inactiv e Date Active * NO KNOWN ENVIRONMENTAL ALLERGIES Unknown 03/08/2010 N o Inactive Date Active Problems Condition Codes Effective Dates Condition Status Irregular menstruation, unspecified ICD-9: 626.2 ICD-10: N92.6 [...] Start Date Stop Date Status Fill Instructions metronidazole 500 mg tablet RxNorm: 420314 1 Tablet(s) Oral two times a day 11/17/2019 11/24/2019 Active metronidazole 500 mg tablet RxNorm: 684829 1 Tablet(s) Oral two times a day 11/17/2019 11/16/2019 Inactive Depo-Provera 150 mg/mL intramuscular suspension RxNorm: 1000 128 1 Application Intramuscular 11/16/2019 No Stop Date Active Diflucan 100 mg tablet RxNorm: 950263 1 Tablet(s) Oral QD 07/07/2019 07/14/2019 Inactive Flomax 0.4 mg capsule RxNorm: 498101 1 Capsule(s) Oral QPM for kidney stone 07/07/2019 08/06/2019 Inactive nystatin 100,000 unit/gram topical cream RxNorm: 305097 Application Topical two times a day to periurethral area 07/07/2019 11/16/2019 Inactive Bactrim DS 800 mg-160 mg tablet RxNorm: 868474 1 Tablet(s) Oral two times a day 06/08/2019 06/13/2019 Inactive Bactrim DS 800 mg-160 mg tablet RxNorm: 312229 1 Tablet(s) Oral two times a day 06/08/2019 06/07/2019 Inactive ibuprofen 800 mg tablet RxNorm: 771638 1 Tablet(s) Oral Q8H as needed 03/16/2019 06/05/2019 Inactive Cipro 500 mg tablet RxNorm: 721363 1 Tablet(s) Oral two times a day 03/04/2019 03/11/2019 Inactive Cipro 500 mg tablet RxNorm: 043665 1 Tablet(s) Oral two times a day 03/04/2019 03/03/2019 Inactive Macrobid 100 mg capsule RxNorm: 854834 1 Capsule(s) Oral two ti mes a day 02/16/2019 02/15/2019 Inactive Macrobid 100 mg capsule RxNorm: 883350 1 Capsule(s) Oral two ti mes a [...] 11/24/2017 Inactive Pepcid 40 mg tablet RxNorm: 436990 1 Tablet(s) PO QD 10/18/201603/02 Inactive Depo-Provera 150 mg/mL intramuscular suspension RxNorm: 1000 128 Milliliter(s) 1 Milliliter(s) IM 10/10/2016 06/04/2017 Inactive Tamiflu 75 mg capsule RxNorm: 154658 1 Capsule(s) PO BID 08/08/2016 0 08/12/2016 Inactive Levsin 0.125 mg tablet RxNorm: 8635206 1 Tablet(s) PO TID for fl ank pain 05/15/2016 10/17/2016 Inactive Bactrim DS 800 mg-160 mg tablet RxNorm: 657518 1 Tablet(s) PO BID 0 12/23/2015 01/01/2016 Inactive mupirocin 2 % topical ointment RxNorm: 927313 Application TOP TID 0 12/23/2015 12/29/2015 Inactive Depo-Provera 150 mg/mL intramuscular suspension RxNorm: 1000 128 Milliliter(s) 1 Milliliter(s) IM 11/08/2015 10/09/2016 Inactive Xanax 0.25 mg tablet RxNorm: 769352 TAKE ONE-HALF TO ON E TABLET BY MOUTH NEEDED FOR ANXIETY 04/11/2015 05/10/2015 Inactive Generic For:X ANAX 0.25 MG TABLET 04/11/2015 2:54:57 PM Depo-Provera 150 mg/mL intramuscular suspension RxNorm: 1000 128 Milliliter(s) 1 Milliliter(s) IM 02/15/2015 11/07/2015 Inactive azithromycin 250 mg tablet RxNorm: 195198 2 Tablet(s) P O today, then one tablet on days 2 - 5 01/26/2015 12/22/2015 Inactive Medrol (Jhonathan) 4 mg tablets in a dose pack RxNorm: 757638 Tablet(s) P O 01/26/2015 12/22/2015 Inactive Depo-Provera 150 mg/mL intramuscular suspension RxNorm: 1000 128 1 Milliliter(s) IM 09/06/2014 02/15/2015 Inactive Xanax 0.25 mg tablet RxNorm: 984195 1/2 - 1 Tablet(s) PO as nee ded for anxiety 06/16/2014 04/12/2015 Inactive Zoloft 50 mg tablet RxNorm: 828529 1 Tablet(s) PO QD 06/16/201412/21 Inactive Flexeril [...] 2014 Inactive Xanax 0.25 mg tablet RxNorm: 105207 1/2 - 1 Tablet(s) PO as nee ded for anxiety 01/28/2014 06/15/2014 Inactive naproxen 500 mg tablet RxNorm: 248289 1 Tablet(s) PO BID 12/10/2013 0 01/08/2014 Inactive Zoloft 50 mg tablet RxNorm: 752641 1 Tablet(s) PO QD 12/10/201304/08 Inactive Xanax 0.25 mg tablet RxNorm: 189597 1/2 - 1 Tablet(s) PO as nee ded for anxiety 12/10/2013 01/27/2014 Inactive Xanax 0.25 mg tablet RxNorm: 715333 1 Tablet(s) PO Q8H 10/20/2013 Inactive Zoloft 50 mg tablet RxNorm: 754825 1/2 Tablet(s) PO x 6 days then on1 tablet daily 10/20/2013 11/18/2013 Inactive Loestrin Fe 06/01 (28) 1 mg-20 mcg tablet RxNorm: 9296141 1 Table t(s) PO QD 10/20/2013 05/03/2014 Inactive phenazopyridine 100 mg tablet RxNorm: 4888316 1 Tablet(s) PO Q8H 06/26/2013 Inactive Macrobid 100 mg capsule RxNorm: 670695 1 Capsule(s) PO BID 06/25/19 14 07/04/2013 Inactive phenazopyridine 100 mg tablet RxNorm: 6177153 1 Tablet(s) PO Q8H 06/24/2013 Inactive Macrobid 100 mg capsule RxNorm: 450862 1 Capsule(s) PO BID 07/25/1908/02/2010 Inactive Apri 0.15 mg-30 mcg tablet RxNorm: 164671 1 Tablet(s) PO QD As directed. No Start Date 06/23/2013 Inactive omeprazole 40 mg capsule,delayed release RxNorm: 260006 1 Capsule(s) PO QD for stomach No Start Date 06/23/2013 Inactive naproxen 500 mg tablet RxNorm: 561923 1 Tablet(s) PO BID No Start D ate 06/15/2014 Inactive hydrocodone 10 mg-acetaminophen 325 mg tablet RxNorm: 076522 Tablet(s) PO as needed for pain No Start Date 12/22/2015 Inactive Zoloft 50 mg tablet RxNorm: 461104 1 Tablet(s) PO QD No Start Date Inactive hydrocodone 5 mg-acetaminophen 325 mg tablet RxNorm: 909564 1 Tablet(s) PO QID as needed for pain No Start Date 09/14/2013 Inactive Medication Administered No Medication Administered data Immunizations No Immunization data Results Observation Observation Code Item Item Code Result Date S ervice Location V PROF SWB [id number] Whiff TNP:Duplicate Order 11/17/19 20 Unknown V PROF SWB [id number] WBC Vaginal TNP:Duplicate Order 2019 Unknown V PROF SWB [id number] [employer] Lactobac TNP:Duplicate Order 2019 Unknown V PROF SWB [id number] Clue Cells TNP:Duplicate Order 020 Unknown V PROF SWB [id number] [employer] Curved GNR TNP:Duplicate Order 11/2019 Unknown V PROF SWB [id number] Yeast Vaginal TNP:Duplicate Order 11/2019 Unknown V PROF SWB [id number] [employer] SM GVB TNP:Duplicate Order 11/17/19 20 Unknown V PROF SWB [id number] [employer] Swb Trich Ag TNP:Duplicate Order Unknown V PROF SWB [id number] [employer] BV Stain TNP:Duplicate Order 2019 Unknown V PROF SWB [id number] [employer] Interp TNP:Duplicate Order 11/17/19 20 Unknown V PROF SWB [id number] Conf BV Stain TNP:Duplicate Order 11/2019 Unknown V PROF SWB [id number] Whiff Positive 11/17/2019 Unknown V PROF SWB [id number] WBC Vaginal Few 11/17/2019 Unknow n V PROF SWB [id number] Clue Cells >20% 11/17/2019 Unknown V PROF SWB [id number] Yeast Vaginal None 11/17/2019 Unkn own V PROF SWB [id number] [employer] Swb Trich Ag Negative 11/17/2019 Un known V PROF SWB [id number] [employer] BV Stain 10 11/17/2019 Unknow n V PROF SWB [id number] [employer] Interp Results indicate Bacteria l Vaginosis Syndrome. 11/17/2019 Unknown VAG PROF [id number] PH TNP:Improper Specimen 020 Unknown VAG PROF [id number] Whiff TNP:Improper Specimen 020 Unknown VAG PROF [id number] WBC Vaginal TNP:Improper Specimen 11/15 Unknown VAG PROF [id number] [employer] Lactobac TNP:Improper Specimen 11/15 Unknown VAG PROF [id number] Clue Cells TNP:Improper Specimen 2019 Unknown VAG PROF [id number] DIRECT[employer] Curved GNR TNP:Improper Specimen 10/2019 Unknown VAG PROF [id number] Yeast Vaginal TNP:Improper Specimen 10/2019 Unknown VAG PROF [id number] [employer] SM GVB TNP:Improper Specimen 020 Unknown VAG PROF [id number] Trichomonas TNP:Improper Specimen 11/15 Unknown VAG PROF [id number] [employer] BV Stain TNP:Improper Specimen 11/15 Unknown VAG PROF [id number] [employer] Intp TNP:Improper Specimen 020 Unknown VAG PROF [id number] Conf BV Stain TNP:Improper Specimen 10/2019 Unknown LIPASE 75444 LIPASE 14 IU/L 01/28/2014 Unknown COMPLETE BLOOD COUNT [id number] WBC 6.5 10e9/L 01/29/20 14 Unknown COMPLETE BLOOD COUNT 0110024 RBC 4.54 10e12/L 2013 Unknown COMPLETE BLOOD COUNT [id number] HGB 12.1 g/dL 4 Unknown COMPLETE BLOOD COUNT [id number] HCT DET 38.0 % 4 Unknown COMPLETE BLOOD COUNT [id number] MCV 83.7 fL 4 Unknown COMPLETE BLOOD COUNT [id number] MCH 26.7 pg 4 Unknown COMPLETE BLOOD COUNT [id number] MCHC 31.8 g/dL 4 Unknown COMPLETE BLOOD COUNT [id number] PLT 218 10e9/L 01/29/20 14 Unknown COMPLETE BLOOD COUNT [id number] MPV 12.8 fL 4 Unknown COMPLETE BLOOD COUNT [id number] RACHNA % 56.5 % 4 Unknown COMPLETE BLOOD COUNT [id number] LY % 32.3 % 4 Unknown COMPLETE BLOOD COUNT [id number] MON % 8.6 % 4 Unknown COMPLETE BLOOD COUNT [id number] EOS % 2.1 % 4 Unknown COMPLETE BLOOD COUNT [id number] BASO % 0.5 % 4 Unknown COMPLETE BLOOD COUNT [id number] RDW 18.4 % 4 Unknown COMPLETE BLOOD COUNT [id number] ABS RACHNA 3.67 10e9/L 014 Unknown COMPLETE BLOOD COUNT [id number] ABS LYMPH 2.10 10e9/L 014 Unknown COMPLETE BLOOD COUNT [id number] ABS MONO 0.56 10e9/L 014 Unknown COMPLETE BLOOD COUNT [id number] ABS EOS 0.14 10e9/L 014 Unknown COMPLETE BLOOD COUNT [id number] ABS BASO 0.03 10e9/L 014 Unknown COMPLETE BLOOD COUNT [id number] RDW-SD 55.5 fL 4 Unknown COMPREHENSIVE METABOLIC 78413 AST 13 U/L 2013 Unknown COMPREHENSIVE METABOLIC 64282 ALT 7 IU/L 2013 Unknown COMPREHENSIVE METABOLIC 79135 BUN 8 MG/DL 2013 Unknown COMPREHENSIVE METABOLIC 56915 ALBUMIN 4.5 GM/DL 2013 Unknown COMPREHENSIVE METABOLIC 01261 CHLORIDE 106 MMOL/L 01/28 Unknown COMPREHENSIVE METABOLIC 98045 BILI TOT 0.4 MG/DL 2013 Unknown COMPREHENSIVE METABOLIC 63996 ALK PHOS 55 U/L 2013 Unknown COMPREHENSIVE METABOLIC 12331 SODIUM 138 MMOL/L 01/28 Unknown COMPREHENSIVE METABOLIC 69268 CREATININE 0.73 MG/DL 01/11 Unknown COMPREHENSIVE METABOLIC 71353 CALCIUM 9.9 MG/DL 2013 Unknown COMPREHENSIVE METABOLIC 99472 POTASSIUM 3.8 MMOL/L 01/28 Unknown COMPREHENSIVE METABOLIC 81647 PROT TOT 7.4 GM/DL 2013 Unknown COMPREHENSIVE METABOLIC 26587 Glucose 96 MG/DL 2013 Unknown COMPREHENSIVE METABOLIC 36951 BICARB 27 MMOL/L 2013 Unknown COMPREHENSIVE METABOLIC 53489 ANION GAP 5 MEQ/L 2013 Unknown AMYLASE 68663 AMYLASE 42 IU/L 01/28/2014 Unknown GFR CALC [id number] GFR AA >60 ML/MIN 01/28/2014 Unknown GFR CALC [id number] GFR NON-AA >60 ML/MIN 01/28/2014 Unknown Procedures Procedure Codes Date THER/PROPH/DIAG INJ SC/IM CPT-4: 52798 11/19/2019 URINE TEST CPT-4: 18309 11/16/2019 SPECIMEN HANDLING OFFICE-LAB CPT-4: 84859 11/16/2019 URINE CULTURE/ COLONY COUNT CPT-4: 20634 06/15/2019 URINALYSIS NONAUTO W/O SCOPE CPT-4: 63019 06/05/2019 CEFTRIAXONE SODIUM INJECTION CPT-4: J0696 06/05/2019 THER/PROPH/DIAG INJ SC/IM CPT-4: 20302 06/05/2019 URINE CULTURE/ COLONY COUNT CPT-4: 70039 06/05/2019 URINE CULTURE/ COLONY COUNT CPT-4: 11429 03/02/2019 THER/PROPH/DIAG INJ SC/IM CPT-4: 18517 02/16/2019 URINE CULTURE/ COLONY COUNT CPT-4: 89590 02/16/2019 URINALYSIS NONAUTO W/O SCOPE CPT-4: 60092 02/16/2019 URINE TEST CPT-4: 04878 02/16/2019 THER/PROPH/DIAG INJ SC/IM CPT-4: 41730 05/21/2018 THER/PROPH/DIAG INJ SC/IM CPT-4: 03361 11/26/2017 THER/PROPH/DIAG INJ SC/IM CPT-4: 99324 08/27/2017 THER/PROPH/DIAG INJ SC/IM CPT-4: 87271 06/06/2017 URINALYSIS NONAUTO W/O SCOPE CPT-4: 24993 06/06/2017 GC/CHLAMYDIA DNA (BD-ProbeTec) CPT-4: 09006|14263 8 URINE CULTURE/ COLONY COUNT CPT-4: 03268 06/06/2017 THER/PROPH/DIAG INJ SC/IM CPT-4: 45297 01/04/2017 SPECIMEN HANDLING OFFICE-LAB CPT-4: 69729 10/18/2016 THER/PROPH/DIAG INJ SC/IM CPT-4: 88373 10/12/2016 INFLUENZA ASSAY W/OPTIC CPT-4: 81902 08/08/2016 THER/PROPH/DIAG INJ SC/IM CPT-4: 05515 07/25/2016 THER/PROPH/DIAG INJ SC/IM CPT-4: 56827 05/03/2016 THER/PROPH/DIAG INJ SC/IM CPT-4: 58284 02/20/2016 URINE TEST CPT-4: 75022 02/20/2016 AEROBIC WOUND CULTURE & STN CPT-4: 06290 12/23/2015 THER/PROPH/DIAG INJ SC/IM CPT-4: 10144 11/07/2015 URINE TEST CPT-4: 27627 11/07/2015 THER/PROPH/DIAG INJ SC/IM CPT-4: 58296 08/01/2015 THER/PROPH/DIAG INJ SC/IM CPT-4: 07999 05/11/2015 THER/PROPH/DIAG INJ SC/IM CPT-4: 43450 02/16/2015 THER/PROPH/DIAG INJ SC/IM CPT-4: 17089 11/29/2014 THER/PROPH/DIAG INJ SC/IM CPT-4: 01936 09/09/2014 URINE TEST CPT-4: 08854 06/16/2014 THER/PROPH/DIAG INJ SC/IM CPT-4: 83384 06/16/2014 ROUTINE VENIPUNCTURE CPT-4: 05528 10/07/2013 COMPLETE CBC W/AUTO DIFF WBC CPT-4: 80105 10/07/2013 CHORIONIC GONADOTROPIN TEST CPT-4: 21346 10/07/2013 URINE TEST CPT-4: 32990 09/15/2013 URINALYSIS NONAUTO W/O SCOPE CPT-4: 71141 06/24/2013 URINE CULTURE/ COLONY COUNT CPT-4: 77974 06/24/2013 URINE TEST CPT-4: 86586 09/08/2010 URINALYSIS NONAUTO W/O SCOPE CPT-4: 14956 07/24/2010 URINE CULTURE/ COLONY COUNT CPT-4: 31204 07/24/2010 DESTRUCT PREMALG LESION (Cryosurgery) CPT-4: 00056 DESTRUCT PREMALG LES 2-14 CPT-4: 65324 03/08/2010 Vital Signs Date Vital 11/16/2019 Blood Pressure 1: 119/75 Code: 8480-6 BMI: 24.4 Code: 25996-3 Heart Rate 1: 112 bpm Height: 5'9" Respiratory Rate: 15 bpm SpO2: 98% Tempera ture: 36.8 (C) / 98.2 (F) Weight: 165 lbs 07/07/2019 Blood Pressure 1: 126/82 Code: 8480-6 Heart Rate 1: 100 bpm SpO2: 99% Temperature: 36.8 (C) / 98.2 (F) 06/05/2019 Blood Pressure 1: 131/82 Code: 8480-6 BMI: 26.3 Code: 62443-5 Heart Rate 1: 109 bpm Height: 5'9" Respiratory Rate: 16 bpm SpO2: 99% Tempera ture: 36.7 (C) / 98.1 (F) Weight: 178 lbs 03/16/2019 Blood Pressure 1: 132/86 Code: 8480-6 Heart Rate 1: 73 bpm SpO2: 99% Temperature: 36.6 (C) / 97.9 (F) Weight: 158 lbs 03/03/2018 Blood Pressure 1: 120/88 Code: 8480-6 BMI: 23.9 Code: 62819-4 Heart Rate 1: 81 bpm Height: 5'9" Respiratory Rate: 18 bpm SpO2: 99% Tempera ture: 36.1 (C) / 97.0 (F) Weight: 162 lbs 10/18/2016 Blood Pressure 1: 108/78 Code: 8480-6 BMI: 22.6 Code: 85102-5 Heart Rate 1: 100 bpm Height: 5'9" Respiratory Rate: 20 bpm SpO2: 98% Tempera ture: 37.1 (C) / 98.8 (F) Weight: 153 lbs 08/08/2016 Blood Pressure 1: 114/78 Code: 8480-6 Heart Rate 1: 102 bpm Respiratory Rate: 20 bpm SpO2: 98% Temperature: 36.4 (C) / 97.6 (F) We ight: 152 lbs 05/15/2016 Blood Pressure 1: 124/80 Code: 8480-6 BMI: 23.2 Code: 30415-1 Heart Rate 1: 100 bpm Height: 5'9" Respiratory Rate: 20 bpm Temperature: 37 .0 (C) / 98.6 (F) Weight: 157 lbs 12/23/2015 Blood Pressure 1: 124/78 Code: 8480-6 BMI: 23.0 Code: 61974-2 Heart Rate 1: 92 bpm Height: 5'9" Respiratory Rate: 20 bpm SpO2: 97% Tempera ture: 36.9 (C) / 98.5 (F) Weight: 156 lbs 01/26/2015 Blood Pressure 1: 118/78 Code: 8480-6 BMI: 21.3 Code: 50781-3 Heart Rate 1: 100 bpm Height: 5'9" Respiratory Rate: 20 bpm SpO2: 97% Tempera ture: 36.6 (C) / 97.8 (F) Weight: 144 lbs 06/16/2014 Blood Pressure 1: 118/78 Code: 8480-6 BMI: 23.5 Code: 01742-6 Heart Rate 1: 78 bpm Height: 5'9" Respiratory Rate: 18 bpm Temperature: 36 .1 (C) / 97.0 (F) Weight: 159 lbs 01/28/2014 Blood Pressure 1: 124/78 Code: 8480-6 BMI: 23.2 Code: 07100-6 Heart Rate 1: 88 bpm Height: 5'9" Respiratory Rate: 22 bpm Temperature: 36 .1 (C) / 97.0 (F) Weight: 157 lbs 12/10/2013 Blood Pressure 1: 124/70 Code: 8480-6 BMI: 23.0 Code: 55294-8 Heart Rate 1: 82 bpm Height: 5'9" Respiratory Rate: 20 bpm Temperature: 36 .2 (C) / 97.2 (F) Weight: 156 lbs 10/20/2013 Blood Pressure 1: 118/82 Code: 8480-6 Heart Rate 1: 84 bpm Respiratory Rate: 22 bpm Temperature: 36.5 (C) / 97.7 (F) Weight: 150 lbs 10/07/2013 Blood Pressure 1: 120/80 Code: 8480-6 BMI: 22.2 Code: 19368-8 Heart Rate 1: 68 bpm Height: 5'9" Respiratory Rate: 22 bpm Temperature: 36 .2 (C) / 97.2 (F) Weight: 150 lbs 09/15/2013 Blood Pressure 1: 118/68 Code: 8480-6 BMI: 22.0 Code: 05998-9 Heart Rate 1: 78 bpm Height: 5'9" Respiratory Rate: 20 bpm Temperature: 36 .1 (C) / 97.0 (F) Weight: 149 lbs 06/24/2013 Blood Pressure 1: 112/74 Code: 8480-6 Heart Rate 1: 74 bpm Respiratory Rate: 20 bpm Temperature: 36.6 (C) / 97.9 (F) Weight: 150 lbs 03/05/2013 Blood Pressure 1: 126/88 Code: 8480-6 BMI: 23.5 Code: 64554-7 Heart Rate 1: 80 bpm Height: 5'9" Respiratory Rate: 20 bpm Temperature: 36 .6 (C) / 97.9 (F) Weight: 159 lbs 02/09/2013 Blood Pressure 1: 110/68 Code: 8480-6 BMI: 21.9 Code: 94400-1 Heart Rate 1: 74 bpm Height: 5'9" Respiratory Rate: 22 bpm Temperature: 36 .8 (C) / 98.2 (F) Weight: 148 lbs 09/08/2010 Blood Pressure 1: 124/90 Code: 8480-6 BMI: 21.4 Code: 14223-8 Height: 5'10" Temperature: 36.4 (C) / 97.6 [...] Visit Reason For Visit Effective Dates Notes injection(s) 11/19/2019 well woman exam (18-39 years) [...] painful Encounters Encounter Performer Location Codes Date () NURSE/OUTPATIENT VISIT EST Diagnosis: Irregular menstruation, unspecified[ICD10: N92.6] Josefa TALAMANTES DO [facility] CPT-4: 83060 11/19/2019 ([id number]) PREV VISIT EST AGE 18-39 Diagnosis: Encounter for gynecological examination (general) (routine) with abnormal findings[ICD10: Z01.411] Diagnosis: Encounter for general adult medical examination without abnormal findings[ICD10: Z00.00] Diagnosis: Vaginitis[ICD10: N76.0] Diagnosis: Left breast mass[ICD10: N63.20] Diagnosis: Dense breast tissue[ICD10: R92.2] Diagnosis: Bilateral lower extremity edema[ICD10: R60.0] Diagnosis: control counseling[ICD10: Z30.09] Keyanna Mejía CHANNING NELIDAADAM SergioMaria Teresa D[facility] [employer] [facility] CPT-4: 08218 11/16/2019 ([id number]) OFFICE/OUTPATIENT VISIT EST Diagnosis: Urethritis[ICD10: N34.2] Diagnosis: History of renal stone[ICD10: Z87.442] Josefa BRIAN SergioMaria Teresa [employer] [facility] CPT-4: 17512 07/07/2019 ([id number]) NURSE/OUTPATIENT VISIT EST Diagnosis: Urinary tract infection[ICD10: N39.0] Josefa DE SOUZA SergioMaria Teresa [employer] [facility] CPT-4: 55128 06/15/2019 ([id number]) OFFICE/OUTPATIENT VISIT EST Diagnosis: Dysuria[ICD10: R30.0] Diagnosis: Pelvic pain in female[ICD10: R10.2] Keyanna STRANGE KATTY SergioMaria Teresa [employer] [facility] CPT-4: 96209 06/05/2019 ([id number]) OFFICE/OUTPATIENT VISIT EST Diagnosis: Left wrist pain[ICD10: M25.532] Diagnosis: Swelling of left upper extremity[ICD10: M79.89] Keyanna Mejía JOSEFA SergioMaria Teresa [employer] [facility] CPT-4: 99346 03/16/2019 ([id number]) NURSE/OUTPATIENT VISIT EST Diagnosis: Urinary tract infection[ICD10: N39.0] Josefa DE SOUZA SergioMaria Teresa [employer] [facility] CPT-4: 01362 03/02/2019 ([id number]) NURSE/OUTPATIENT VISIT EST Diagnosis: Irregular menstruation, unspecified[ICD10: N92.6] Diagnosis: Urinary tract infection[ICD10: N39.0] Josefa DE SOUZA SergioMaria Teresa [employer] [facility] CPT-4: 26215 02/16/2019 ([id number]) NURSE/OUTPATIENT VISIT EST Diagnosis: Irregular menstruation, unspecified[ICD10: N92.6] Josefa TALAMANTES DO [facility] CPT-4: 98196 05/21/2018 ([id number]) OFFICE/OUTPATIENT VISIT EST Diagnosis: Irregular menstruation, unspecified[ICD10: N92.6] Diagnosis: Diseases of lips[ICD10: K13.0] Diagnosis: 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] Keyanna TALAMANTES DO [facility] CPT-4: 82997 03/03/2018 ([id number]) NURSE/OUTPATIENT VISIT EST Diagnosis: Irregular menstruation, unspecified[ICD10: N92.6] Josefa TALAMANTES DO [facility] CPT-4: 47289 11/26/2017 ([id number]) OFFICE/OUTPATIENT VISIT EST Diagnosis: Irregular menstruation, unspecified[ICD10: N92.6] Josefa TALAMANTES DO [facility] CPT-4: 57947 08/27/2017 ([id number]) OFFICE/OUTPATIENT VISIT EST Diagnosis: Dysuria[ICD10: R30.0] Diagnosis: Irregular menstruation, unspecified[ICD10: N92.6] Josefa TALAMANTES DO [facility] CPT-4: 83726 06/06/2017 ([id number]) OFFICE/OUTPATIENT VISIT EST Diagnosis: Irregular menstruation, unspecified[ICD10: N92.6] Josefa TALAMANTES DO [facility] CPT-4: 87308 01/04/2017 ([id number]) PREV VISIT EST AGE 18-39 Diagnosis: Encounter for general adult medical examination without abnormal findings[ICD10: Z00.00] Diagnosis: Encounter for gynecological examination (general) (routine) without abnormal findings[ICD10: Z01.419] Diagnosis: Gastro-esophageal reflux disease without esophagitis[ICD10: K21.9] Diagnosis: Dysphagia, pharyngeal phase[ICD10: R13.13] Josefa TALAMANTES DO [facility] CPT-4: 04741 10/18/2016 ([id number]) OFFICE/OUTPATIENT VISIT EST Diagnosis: Irregular menstruation, unspecified[ICD10: N92.6] Josefa TALAMANTES DO [facility] CPT-4: 14738 10/12/2016 ([id number]) OFFICE/OUTPATIENT VISIT EST Diagnosis: Fever, unspecified[ICD10: R50.9] Diagnosis: Influenza due to identified novel influenza A virus with other respiratory manifestations[ICD10: J09.X2] Catrina TALAMANTES DO [facility] CPT-4: 24336 08/08/2016 ([id number]) OFFICE/OUTPATIENT VISIT EST Diagnosis: Irregular menstruation, unspecified[ICD10: N92.6] Josefa TALAMANTES DO [facility] CPT-4: 26710 07/25/2016 ([id number]) OFFICE/OUTPATIENT VISIT EST Diagnosis: Right upper quadrant pain[ICD10: R10.11] Diagnosis: Unspecified abdominal pain[ICD10: R10.9] Josefa TALAMANTES DO [facility] CPT-4: 63505 05/15/2016 ([id number]) OFFICE/OUTPATIENT VISIT EST Diagnosis: Irregular menstruation, unspecified[ICD10: N92.6] Josefa TALAMANTES DO [facility] CPT-4: 15501 05/03/2016 ([id number]) OFFICE/OUTPATIENT VISIT EST Diagnosis: Irregular menstruation, unspecified[ICD10: N92.6] Josefa TALAMANTES DO [facility] CPT-4: 71260 02/20/2016 OFFICE/OUTPATIENT VISIT EST Diagnosis: Cutaneous abscess of buttock[ICD10: L02.31] Kitty Caldera JOSEFA TALAMANTES DO [facility] CPT-4: 20560 12/23/2015 ([id number]) OFFICE/OUTPATIENT VISIT EST Diagnosis: Irregular menstruation, unspecified[ICD10: N92.6] Josefa TALAMANTES DO [facility] CPT-4: 83184 11/07/2015 ([id number]) OFFICE/OUTPATIENT VISIT EST Diagnosis: Irregular menstruation, unspecified[ICD10: N92.6] Josefa TALAMANTES DO [facility] CPT-4: 10552 08/01/2015 ([id number]) OFFICE/OUTPATIENT VISIT EST Diagnosis: Irregular menstruation, unspecified[ICD10: N92.6] Josefa TALAMANTES DO [facility] CPT-4: 24668 05/11/2015 ([id number]) OFFICE/OUTPATIENT VISIT EST Diagnosis: Irregular menstruation, unspecified[ICD10: N92.6] Josefa TALAMANTES DO [facility] CPT-4: 80420 02/16/2015 OFFICE/OUTPATIENT VISIT EST Diagnosis: SINUSITIS, ACUTE[ICD9: 461.9] Malgorzata TALAMANTES DO [facility] CPT-4: 59540 01/26/2015 ([id number]) OFFICE/OUTPATIENT VISIT EST Diagnosis: IRREGULAR MENSTRUATION[ICD9: 626.4] Josefa TALAMANTES DO [facility] CPT-4: 32388 11/29/2014 ([id number]) OFFICE/OUTPATIENT VISIT EST Diagnosis: IRREGULAR MENSTRUATION[ICD9: 626.4] Josefa TALAMANTES DO [facility] CPT-4: 25320 09/09/2014 ([id number]) OFFICE/OUTPATIENT VISIT EST Diagnosis: IRREGULAR MENSTRUATION[ICD9: 626.4] Diagnosis: General counseling and advice on contraceptive management[ICD9: V25.09] Diagnosis: Anxiety and depression[ICD9: 300.4] Malgorzata TALAMANTES DO [facility] CPT-4: 39741 06/16/2014 OFFICE/OUTPATIENT VISIT EST Diagnosis: Right upper quadrant pain[ICD9: 789.01] Malgorzata TALAMANTES DO [facility] CPT-4: 70521 01/28/2014 OFFICE/OUTPATIENT VISIT EST Diagnosis: Right upper quadrant pain[ICD9: 789.01] Malgorzata TALAMANTES DO [facility] CPT-4: 04182 12/10/2013 OFFICE/OUTPATIENT VISIT EST Diagnosis: Anxiety and depression[ICD9: 300.4] Malgorzata ALANIZ SMaria Teresa TALAMANTES DO [facility] CPT-4: 37315 10/20/2013 OFFICE/OUTPATIENT VISIT EST Diagnosis: Menorrhagia[ICD9: 626.2] [facility]gorzata [facility] CPT-4: 81931 10/07/2013 OFFICE/OUTPATIENT VISIT EST Diagnosis: IRREGULAR MENSTRUATION[ICD9: 626.4] Malgorzata TALAMANTES DO [email or web address] CPT-4: 71629 09/15/2013 OFFICE/OUTPATIENT VISIT EST Diagnosis: HEMATURIA NOS[ICD9: 599.70] Diagnosis: Abdominal discomfort in right upper quadrant[ICD9: 789.01] Malgorzata TALAMANTES DO [email or web address] CPT-4: 14422 06/24/2013 ([id number]) OFFICE/OUTPATIENT VISIT EST Diagnosis: ABDOMINAL PAIN[ICD9: 789.00] Diagnosis: GERD[ICD9: 530.81] Josefa Thadgaetanoflaco TALAMANTES DO [email or web address] CPT-4: 19147 03/05/2013 OFFICE/OUTPATIENT VISIT EST Diagnosis: General counseling and advice on contraceptive management[ICD9: V25.09] Diagnosis: IRREGULAR MENSTRUATION[ICD9: 626.4] Malgorzata TALAMANTES DO [email or web address] CPT-4: 05040 02/09/2013 ([id number]) OFFICE/OUTPATIENT VISIT EST Justine TALAMANTES DO [email or web address] CPT-4: 29014 09/08/2010 ([id number]) OFFICE/OUTPATIENT VISIT EST Justine TALAMANTES DO [email or web address] CPT-4: 64868 07/24/2010 Plan of Care Planned Activity Notes Codes Status Date Appointment: Josefa Talamantes [facility] [phone] [facility] [place] INJECTION 11/19/2019 Care Plan: Belle BOSE ADD ON TO LABS SENT ON 11/16/2019 Pending 11/17/2019 Visit Diagnosis Plan: Encounter for gyne cological examination (general) (routine) with abnormal findings Discussion: fasting labs to be completed this week at [facility]. order written and given to patient. [...] ICD-10 : N76.0 11/16/2019 Visit Diagnosis Plan: Bilateral lower extremity edema Discussion: fasting labs to be completed including thyroid panel. ICD-9 : 782.3 ICD-10 : R60.0 11/16/2019 Appointment: Keyanna Mejía [address] [place] [address] Annual Well Visit 11/16/2019 Visit Diagnosis Plan: Urethritis Discussion: Diflucan and topical nystatin ICD-9 : 597.80 ICD-10 : N34.2 07/07/2019 Visit Diagnosis Plan: History of renal stone Discussio n: Flomax Push water If not improving within 48hrs or if worsening then will need CT scan to assess for stone ICD-9 : V13.01 ICD-10 : Z87.442 07/07/2019 Appointment: Josefa Talamantes WPtel: [address] [place] [address] ACUTE ILLNESS 07/07/2019 Patient Education: nystatin- [employer] [id number] [email or web address] Completed 07/07/2019 Appointment: Josefa Talamantes WPtel: [address] [place] [address] UA 06/15/2019 Visit Diagnosis Plan: Dysuria Discussion: due to recur rent pain and worsening symptoms, rocephin 1 gm given in office. will send urine off for culture and call on saturday if any changes needed. instructed to push fluids through the w eekend and go to urgent care with any worsening. ICD-9 : 788.1 ICD-10 : R30.0 06/05/2019 Appointment: Keyanna Mejía [address] [place] [address] FOLLOW UP 06/05/2019 Visit Diagnosis Plan: Left [...] ICD-10 : M25.532 03/16/2019 Appointment: Keyanna Mejía [address] [place] [address] Hospital Follow Up 03/16/2019 Appointment: Josefa Talamantes WPtel: [address] [place], [place] [phone] [place] UA 03/02/2019 Appointment: Josefa Talamantes WPtel: [address] [place], [place] [phone] [place] INJECTION 02/16/2019 Appointment: Josefa Talamantes WPtel: [address] [place], [place] [phone] [place] INJECTION 05/21/2018 Visit Diagnosis Plan: Diseases of lips Discussion: ref erral to be sent to dr. galloway for evaluation of mass for possible debridement. instructed patient to apply warm compresses to lip until seen. ICD-9 : 528.5 ICD-10 : K13.0 03/03/2018 Visit Diagnosis Plan: Nontoxic single thyroid nodule [...] performed in office and negative. 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 had pap october of 2016. not due until 2019 or patient turns 29. ICD-9 : 626.4 ICD-10 : N92.6 03/03/2018 Appointment: Keyanna Mejía [address] [place], [place] [phone] [place] ACUTE ILLNESS 03/03/2018 Patient Education: Patient Medication Summary Completed 03/03/2018 Care Plan: US EXAM OF HEAD AND NECK thyroid LOIN C : 01718-9 Pending 03/03/2018 Appointment: Josefa Talamantes WPtel: [address] [place], [place] [phone] [place] CANCELED 02/27/2018 Appointment: Josefa Talamantes WPtel: [address] [place], [place] [phone] [place] INJECTION 11/26/2017 Patient Education: Patient Medication Summary Completed 11/26/2017 Appointment: Josefa Talamantes WPtel: [address] [place], [place] [phone] [place] INJECTION 08/27/2017 Patient Education: Patient Medication Summary Completed 08/27/2017 Appointment: Josefa Talamantes WPtel: [address] [place], [place] [phone] [place] INJECTION 06/06/2017 Patient Education: Patient Medication Summary Completed 06/06/2017 Appointment: Josefa Talamantes WPtel: [address] [place], [place] [phone] [place] INJECTION 01/04/2017 Patient Education: Patient Medication Summary Completed 01/04/2017 Appointment: Josefa Talamantes WPtel: [address] [place], [place] [phone] [place] 11/19 lm `sl 11/21 lm `sl NO SHOW 11/22/19 17 Patient Education: Patient Medication Summary Completed 10/22/2016 Care Plan: US EXAM OF HEAD AND NECK Thyroid Ultrasound LOIN C : 81151-1 Pending 10/22/2016 Visit Diagnosis Plan: Gastro-esophageal reflux [...] : R13.13 10/18/2016 Appointment: Josefa Talamantes WPtel: [address] [place], [place] [phone] [place] 10/17 lm ` Annual Well Visit 10/18/2016 Patient Education: Patient Medication Summary Completed 10/18/2016 Appointment: Josefa Talamantes WPtel: [address] [place], [place] [phone] [place] INJECTION 10/12/2016 Patient Education: Patient Medication Summary Completed 10/12/2016 Visit Diagnosis Plan: Influenza due to i dentified novel influenza A virus with other respiratory manifestations Discussion: Flu A positive Rx as above Supportive care otherwise Contagious precautions discussed Notify kids' provider of exposure for their instructions ICD-9 : 488.02 ICD-10 : J09.X2 08/08/2016 Appointment: Catrina Bran [address] [place], [place] [phone] ACUTE ILLNESS 08/08/2016 Patient Education: Patient Medication Summary Completed 08/08/2016 Appointment: Josefa Talamantes WPtel: [address] [place], [place] [phone] [place] INJECTION 07/25/2016 Patient Education: Patient Medication Summary Completed 07/25/2016 Visit Plan: Finish abx and then recultur e 48hrs after completion Add levsin and zorvolex 05/15/2016 Appointment: Josefa Talamantes WPtel: [address] [place], [place] [id number] [place] 1/ lm `sl 05/15 confirmed~ Hospital Follow Up 0 05/15/2016 Patient Education: Patient Medication Summary Completed 05/15/2016 App[facility]ment: [facility] [address] [facility] [place] 05/09 admitted into the hospital last night~ ACUTE ILLNESS 05/09/2016 Appointment: Josefa Talamantes WPtel: [address] [place], [place] [id number] [place] INJECTION 05/03/2016 Patient Education: Patient Medication Summary Completed 05/03/2016 Appointment: Josefa Talamantes WPtel: [address] [place] [id number] [place] INJECTION 02/20/2016 Patient Education: Patient Medication Summary Completed 02/20/2016 Visit Plan: ERx for Bactrim and Bactroba n Called to [facility] 50mg 1 po q 4-6 hours prn pain #20 Warm moist heat to area qid Watch for s/s of worsening, go to over weekend Discussed SE of meds including s/s of SJS which would require an ER visit C&S obtained 12/23/2015 Appointment: Kitty Caldera WPtel: [address] [place], [place] [phone] ACUTE ILLNESS 12/23/2015 Patient Education: Patient Medication Summary Completed 12/23/2015 Appointment: Josefa Talamantes WPtel: [address] [place], [place] [id number] [place] INJECTION 11/07/2015 Patient Education: Patient Medication Summary Completed 11/07/2015 Appointment: Josefa Talamantes WPtel: [address] [place], [place] [id number] [place] INJECTION 08/01/2015 Patient Education: Patient Medication Summary Completed 08/01/2015 Appointment: Josefa Talamantes WPtel: [address] [place] [id number] [place] INJECTION 05/11/2015 Patient Education: Patient Medication Summary Completed 05/11/2015 Appointment: Malgorzata Islas WPtel: [address] [place], [place] [id number] [place] PAP 04/05/2015 Appointment: Josefa Talamantes WPtel: [address] [place], [place] [id number] [place] INJECTION 02/16/2015 Patient Education: Patient Medication Summary Completed 02/16/2015 Visit Plan: Daily nasal saline rinses Fl onase nasal spray and daily Zyrtec Medrol dose pack Z-jhonathan as directed 01/26/2015 Appointment: Malgorzata Islas WPtel: [address] [place], [place] [phone] ACUTE ILLNESS 01/26/2015 Patient Education: Patient Medication Summary Completed 01/26/2015 Appointment: Josefa Talamantes WPtel: [address] [place], [place] [phone] [place] INJECTION 11/29/2014 Patient Education: Patient Medication Summary Completed 11/29/2014 Appointment: Josefa Talamantes WPtel: [address] [place], [place] [phone] [place] INJECTION 09/09/2014 Patient Education: Patient Medication Summary Completed 09/09/2014 Appointment: Malgorzata Islas WPtel: [address] [place], [place] [phone] FOLLOW UP 06/16/2014 Patient Education: Patient Medication Summary Completed 06/16/2014 Appointment: Malgorzata Islas WPtel: [address] [place] [phone] 06/02/14 appointment scheduled 06/03/14 no showed PAP 06/03/2014 Appointment: Malgorzata Islas WPtel: [address] [place] [id number] [place] FOLLOW UP 01/28/2014 Patient Education: Patient Medication Summary Completed 01/28/2014 Care Plan: [place] : [address]-6 Ordered 01/28/2014 Care Plan: AMYLASE Pending 4 Appointment: Malgorzata Islas WPtel: [address] [place] [phone] [place] FOLLOW UP 12/10/2013 Patient Education: Patient Medication Summary Completed 12/10/2013 Appointment: Malgorzata Islas WPtel: [address] [place], [place] [phone] 11/11 vm 11/12 No Show FOLLOW UP 11/12/2013 Appointment: Malgorzata Islas WPtel: [address] [place] [address] FOLLOW UP 10/20/2013 Patient Education: Patient Medication Summary Completed 10/20/2013 Visit Plan: Quantitative Hcg and CBC tod ay. Transvaginal/Transabdominal sonogram stat Discussed with [employer] and [facility] 343 so will recheck in 1week as long as not worsening 10/07/2013 Appointment: Malgorzata Islas WPtel: [address] [place] [address] ACUTE ILLNESS 10/07/2013 Patient Education: Patient Medication Summary Completed 10/07/2013 Appointment: Malgorzata Islas WPtel: [address] [place] [address] ACUTE ILLNESS 09/15/2013 Patient Education: Patient Medication Summary Completed 09/15/2013 Appointment: Malgorzata Islas WPtel: [address] [place] [phone] ACUTE ILLNESS 06/24/2013 Patient Education: Patient Medication Summary Completed 06/24/2013 Appointment: Malgorzata Islas WPtel: [address] [place] [address] [place] appt was scheduled today then patient no showed the visit ACUTE ILLNESS 05/21/2013 Visit Plan: Check CMP, CBC, UA CT scan o f abdomen Omeprazole 03/05/2013 Appointment: Josefa Talamantes WPtel: [address] [place], [place] [phone] ACUTE ILLNESS 03/05/2013 Appointment: Josefa Talamantes WPtel: [address] [place] [address] 03/02 canceled, wrong patient FOLLOW UP Patient Education: Patient Medication Summary Completed 03/05/2013 Appointment: Malgorzata Islas WPtel: [address] [place] [address] ACUTE ILLNESS 02/09/2013 Patient Education: Patient Medication Summary Completed 02/09/2013 Appointment: Justine Ortega WPtel: [address] [place] [address] ACUTE ILLNESS 09/08/2010 Patient Education: Patient Medication Summary Completed 09/08/2010 Appointment: Justine Ortega WPtel: [address] [place] [address] [place] PAP 08/08/2010 Appointment: Justine Ortega WPtel: [address] [place] [address] ACUTE ILLNESS 07/24/2010 Patient Education: Patient Medication Summary Completed 07/24/2010 Visit Plan: All warts shaved with 11-rekha de scalpel and then cryotherapy x3 Will followup with DNCB treatment 03/08/2010 Appointment: Josefa Talamantes WPtel: [address] [place] [address] ACUTE ILLNESS 03/08/2010 Patient Education: Patient Medication Summary Completed 03/08/2010 Appointment: Josefa Talamantes WPtel: [address] [place] [address] [place] PAP 09/14/2009 Referral: Roney Galloway WPtel: [address] [address] [place] Referral Initiated Referral: Brian [place] [facility]el[facility] [address] [id number] [facility] Referral Initiated Referral: Referral Initiated Instructions [...] CBC today. Transvaginal/Transabdominal sonogram stat Discussed with [employer] and [facility] 343 so will recheck in [...]
--- OUTSIDE RECORDS SUMMARY | 2019-12-11 21:58 | XMS REPORT | CCD ---
Author Author Brenda Talamantes D.O. Organization JOSEFA TALAMANTES DO [facility] Address [address] [place] [address] Phone Care Team Providers Care Smoking Pipe Maker Name Role Phone Josefa Talamantes D.O., PP Unavailable CCM Unavailable Summary Purpose Interface Exchange Insurance Providers Payer name Policy type / Coverage type Covered alliance party ID Effective Begin Date Effective End Date [employer] [facility] Commercial Insurance [id number] Unknown Family History Family History data not found Social History Social History Element Codes Description Effective Dates Tobacco history SNOMED CT: 027394470 Unknown if ever smoked 01/12 Allergies, Adverse [...] Fill Instructions metronidazole 500 mg tablet RxNorm: 062425 1 Tablet(s) Oral two times a day 11/17/2019 11/24/2019 Active metronidazole 500 mg tablet RxNorm: 467866 1 Tablet(s) Oral two times a day 11/17/2019 11/16/2019 Inactive Depo-Provera 150 mg/mL intramuscular suspension RxNorm: 1000 128 1 Application Intramuscular 11/16/2019 No Stop Date Active Diflucan 100 mg tablet RxNorm: 812409 1 Tablet(s) Oral QD 07/07/2019 07/14/2019 Inactive Flomax 0.4 mg capsule RxNorm: 565289 1 Capsule(s) Oral QPM for kidney stone 07/07/2019 08/06/2019 Inactive nystatin 100,000 unit/gram topical cream RxNorm: 459977 Application Topical two times a day to periurethral area 07/07/2019 11/16/2019 Inactive Bactrim DS 800 mg-160 mg tablet RxNorm: 698440 1 Tablet(s) Oral two times a day 06/08/2019 06/13/2019 Inactive Bactrim DS 800 mg-160 mg tablet RxNorm: 759967 1 Tablet(s) Oral two times a day 06/08/2019 06/07/2019 Inactive ibuprofen 800 mg tablet RxNorm: 812923 1 Tablet(s) Oral Q8H as needed 03/16/2019 06/05/2019 Inactive Cipro 500 mg tablet RxNorm: 546787 1 Tablet(s) Oral two times a day 03/04/2019 03/11/2019 Inactive Cipro 500 mg tablet RxNorm: 148231 1 Tablet(s) Oral two times a day 03/04/2019 03/03/2019 Inactive Macrobid 100 mg capsule RxNorm: 974696 1 Capsule(s) Oral two ti mes a day 02/16/2019 02/15/2019 Inactive Macrobid 100 mg capsule RxNorm: 017127 1 Capsule(s) Oral two ti mes a [...] 11/24/2017 Inactive Pepcid 40 mg tablet RxNorm: 696855 1 Tablet(s) PO QD 10/18/201603/02 Inactive Depo-Provera 150 mg/mL intramuscular suspension RxNorm: 1000 128 Milliliter(s) 1 Milliliter(s) IM 10/10/2016 06/04/2017 Inactive Tamiflu 75 mg capsule RxNorm: 361901 1 Capsule(s) PO BID 08/08/2016 0 08/12/2016 Inactive Levsin 0.125 mg tablet RxNorm: 9425883 1 Tablet(s) PO TID for fl ank pain 05/15/2016 10/17/2016 Inactive Bactrim DS 800 mg-160 mg tablet RxNorm: 406254 1 Tablet(s) PO BID 0 12/23/2015 01/01/2016 Inactive mupirocin 2 % topical ointment RxNorm: 473636 Application TOP TID 0 12/23/2015 12/29/2015 Inactive Depo-Provera 150 mg/mL intramuscular suspension RxNorm: 1000 128 Milliliter(s) 1 Milliliter(s) IM 11/08/2015 10/09/2016 Inactive Xanax 0.25 mg tablet RxNorm: 376943 TAKE ONE-HALF TO ON E TABLET BY MOUTH NEEDED FOR ANXIETY 04/11/2015 05/10/2015 Inactive Generic For:X ANAX 0.25 MG TABLET 04/11/2015 2:54:57 PM Depo-Provera 150 mg/mL intramuscular suspension RxNorm: 1000 128 Milliliter(s) 1 Milliliter(s) IM 02/15/2015 11/07/2015 Inactive azithromycin 250 mg tablet RxNorm: 596452 2 Tablet(s) P O today, then one tablet on days 2 - 5 01/26/2015 12/22/2015 Inactive Medrol (Jhonathan) 4 mg tablets in a dose pack RxNorm: 166956 Tablet(s) P O 01/26/2015 12/22/2015 Inactive Depo-Provera 150 mg/mL intramuscular suspension RxNorm: 1000 128 1 Milliliter(s) IM 09/06/2014 02/15/2015 Inactive Xanax 0.25 mg tablet RxNorm: 332698 1/2 - 1 Tablet(s) PO as nee ded for anxiety 06/16/2014 04/12/2015 Inactive Zoloft 50 mg tablet RxNorm: 450585 1 Tablet(s) PO QD 06/16/201412/21 Inactive Flexeril [...] 2014 Inactive Xanax 0.25 mg tablet RxNorm: 857590 1/2 - 1 Tablet(s) PO as nee ded for anxiety 01/28/2014 06/15/2014 Inactive naproxen 500 mg tablet RxNorm: 253497 1 Tablet(s) PO BID 12/10/2013 0 01/08/2014 Inactive Zoloft 50 mg tablet RxNorm: 723818 1 Tablet(s) PO QD 12/10/201304/08 Inactive Xanax 0.25 mg tablet RxNorm: 995189 1/2 - 1 Tablet(s) PO as nee ded for anxiety 12/10/2013 01/27/2014 Inactive Xanax 0.25 mg tablet RxNorm: 247916 1 Tablet(s) PO Q8H 10/20/2013 Inactive Zoloft 50 mg tablet RxNorm: 148615 1/2 Tablet(s) PO x 6 days then on1 tablet daily 10/20/2013 11/18/2013 Inactive Loestrin Fe 06/01 (28) 1 mg-20 mcg tablet RxNorm: 1599550 1 Table t(s) PO QD 10/20/2013 05/03/2014 Inactive phenazopyridine 100 mg tablet RxNorm: 8685958 1 Tablet(s) PO Q8H 06/26/2013 Inactive Macrobid 100 mg capsule RxNorm: 170726 1 Capsule(s) PO BID 06/25/19 14 07/04/2013 Inactive phenazopyridine 100 mg tablet RxNorm: 1512533 1 Tablet(s) PO Q8H 06/24/2013 Inactive Macrobid 100 mg capsule RxNorm: 752559 1 Capsule(s) PO BID 07/25/1908/02/2010 Inactive Apri 0.15 mg-30 mcg tablet RxNorm: 364683 1 Tablet(s) PO QD As directed. No Start Date 06/23/2013 Inactive omeprazole 40 mg capsule,delayed release RxNorm: 101988 1 Capsule(s) PO QD for stomach No Start Date 06/23/2013 Inactive naproxen 500 mg tablet RxNorm: 684205 1 Tablet(s) PO BID No Start D ate 06/15/2014 Inactive hydrocodone 10 mg-acetaminophen 325 mg tablet RxNorm: 047787 Tablet(s) PO as needed for pain No Start Date 12/22/2015 Inactive Zoloft 50 mg tablet RxNorm: 114469 1 Tablet(s) PO QD No Start Date Inactive hydrocodone 5 mg-acetaminophen 325 mg tablet RxNorm: 534177 1 Tablet(s) PO QID as needed for pain No Start Date 09/14/2013 Inactive Medication Administered No Medication Administered data Immunizations No Immunization data Results Observation Observation Code Item Item Code Result Date S ervice Location V PROF SWB [id number] Whiff TNP:Duplicate Order 11/17/19 20 Unknown V PROF SWB [id number] WBC Vaginal TNP:Duplicate Order 2019 Unknown V PROF SWB [id number] [employer] Lactobac TNP:Duplicate Order 2019 Unknown V PROF SWB [id number] Clue Cells TNP:Duplicate Order 020 Unknown V PROF SWB [id number] [employer] Curved GNR TNP:Duplicate Order 11/2019 Unknown V PROF SWB [id number] Yeast Vaginal TNP:Duplicate Order 11/2019 Unknown V PROF SWB [id number] [employer] SM GVB TNP:Duplicate Order 11/17/19 20 Unknown V PROF SWB [id number] [employer] Swb Trich Ag TNP:Duplicate Order Unknown V PROF SWB [id number] [employer] BV Stain TNP:Duplicate Order 2019 Unknown V PROF SWB [id number] [employer] Interp TNP:Duplicate Order 11/17/19 20 Unknown V PROF SWB [id number] Conf BV Stain TNP:Duplicate Order 11/2019 Unknown V PROF SWB [id number] Whiff Positive 11/17/2019 Unknown V PROF SWB [id number] WBC Vaginal Few 11/17/2019 Unknow n V PROF SWB [id number] Clue Cells >20% 11/17/2019 Unknown V PROF SWB [id number] Yeast Vaginal None 11/17/2019 Unkn own V PROF SWB [id number] [employer] Swb Trich Ag Negative 11/17/2019 Un known V PROF SWB [id number] [employer] BV Stain 10 11/17/2019 Unknow n V PROF SWB [id number] [employer] Interp Results indicate Bacteria l Vaginosis Syndrome. 11/17/2019 Unknown VAG PROF [id number] PH TNP:Improper Specimen 020 Unknown VAG PROF [id number] Whiff TNP:Improper Specimen 020 Unknown VAG PROF [id number] WBC Vaginal TNP:Improper Specimen 11/15 Unknown VAG PROF [id number] [employer] Lactobac TNP:Improper Specimen 11/15 Unknown VAG PROF [id number] Clue Cells TNP:Improper Specimen 2019 Unknown VAG PROF [id number] [employer] Curved GNR TNP:Improper Specimen 10/2019 Unknown VAG PROF [id number] Yeast Vaginal TNP:Improper Specimen 10/2019 Unknown VAG PROF [id number] [employer] SM GVB TNP:Improper Specimen 020 Unknown VAG PROF [id number] Trichomonas TNP:Improper Specimen 11/15 Unknown VAG PROF [id number] [employer] BV Stain TNP:Improper Specimen 11/15 Unknown VAG PROF [id number] [employer] Intp TNP:Improper Specimen 020 Unknown VAG PROF [id number] Conf BV Stain TNP:Improper Specimen 10/2019 Unknown LIPASE 83926 LIPASE 14 IU/L 01/28/2014 Unknown COMPLETE BLOOD COUNT [id number] WBC 6.5 10e9/L 01/29/20 14 Unknown COMPLETE BLOOD COUNT [id number] RBC 4.54 10e12/L 2013 Unknown COMPLETE BLOOD COUNT [id number] HGB 12.1 g/dL 4 Unknown COMPLETE BLOOD COUNT [id number] HCT DET 38.0 % 4 Unknown COMPLETE BLOOD COUNT [id number] MCV 83.7 fL 4 Unknown COMPLETE BLOOD COUNT [id number] MCH 26.7 pg 4 Unknown COMPLETE BLOOD COUNT [id number] MCHC 31.8 g/dL 4 Unknown COMPLETE BLOOD COUNT [id number] PLT 218 10e9/L 01/29/20 14 Unknown COMPLETE BLOOD COUNT [id number] MPV 12.8 fL 4 Unknown COMPLETE BLOOD COUNT [id number] RACHNA % 56.5 % 4 Unknown COMPLETE BLOOD COUNT [id number] LY % 32.3 % 4 Unknown COMPLETE BLOOD COUNT [id number] MON % 8.6 % 4 Unknown COMPLETE BLOOD COUNT [id number] EOS % 2.1 % 4 Unknown COMPLETE BLOOD COUNT [id number] BASO % 0.5 % 4 Unknown COMPLETE BLOOD COUNT [id number] RDW 18.4 % 4 Unknown COMPLETE BLOOD COUNT [id number] ABS RACHNA 3.67 10e9/L 014 Unknown COMPLETE BLOOD COUNT [id number] ABS LYMPH 2.10 10e9/L 014 Unknown COMPLETE BLOOD COUNT [id number] ABS MONO 0.56 10e9/L 014 Unknown COMPLETE BLOOD COUNT [id number] ABS EOS 0.14 10e9/L 014 Unknown COMPLETE BLOOD COUNT [id number] ABS BASO 0.03 10e9/L 014 Unknown COMPLETE BLOOD COUNT [id number] RDW-SD 55.5 fL 4 Unknown COMPREHENSIVE METABOLIC 24980 AST 13 U/L 2013 Unknown COMPREHENSIVE METABOLIC 14572 ALT 7 IU/L 2013 Unknown COMPREHENSIVE METABOLIC 10953 BUN 8 MG/DL 2013 Unknown COMPREHENSIVE METABOLIC 49519 ALBUMIN 4.5 GM/DL 2013 Unknown COMPREHENSIVE METABOLIC 35236 CHLORIDE 106 MMOL/L 01/28 Unknown COMPREHENSIVE METABOLIC 45523 BILI TOT 0.4 MG/DL 2013 Unknown COMPREHENSIVE METABOLIC 20756 ALK PHOS 55 U/L 2013 Unknown COMPREHENSIVE METABOLIC 72065 SODIUM 138 MMOL/L 01/28 Unknown COMPREHENSIVE METABOLIC 66883 CREATININE 0.73 MG/DL 01/11 Unknown COMPREHENSIVE METABOLIC 19008 CALCIUM 9.9 MG/DL 2013 Unknown COMPREHENSIVE METABOLIC 52935 POTASSIUM 3.8 MMOL/L 01/28 Unknown COMPREHENSIVE METABOLIC 93128 PROT TOT 7.4 GM/DL 2013 Unknown COMPREHENSIVE METABOLIC 72882 Glucose 96 MG/DL 2013 Unknown COMPREHENSIVE METABOLIC 57915 BICARB 27 MMOL/L 2013 Unknown COMPREHENSIVE METABOLIC 65072 ANION GAP 5 MEQ/L 2013 Unknown AMYLASE 22620 AMYLASE 42 IU/L 01/28/2014 Unknown GFR CALC [id number] GFR AA >60 ML/MIN 01/28/2014 Unknown GFR CALC [id number] GFR NON-AA >60 ML/MIN 01/28/2014 Unknown Procedures Procedure Codes Date THER/PROPH/DIAG INJ SC/IM CPT-4: 19416 11/19/2019 URINE TEST CPT-4: 71979 11/16/2019 SPECIMEN HANDLING OFFICE-LAB CPT-4: 86211 11/16/2019 URINE CULTURE/ COLONY COUNT CPT-4: 61655 06/15/2019 URINALYSIS NONAUTO W/O SCOPE CPT-4: 91969 06/05/2019 CEFTRIAXONE SODIUM INJECTION CPT-4: J0696 06/05/2019 THER/PROPH/DIAG INJ SC/IM CPT-4: 38919 06/05/2019 URINE CULTURE/ COLONY COUNT CPT-4: 58141 06/05/2019 URINE CULTURE/ COLONY COUNT CPT-4: 30484 03/02/2019 THER/PROPH/DIAG INJ SC/IM CPT-4: 28111 02/16/2019 URINE CULTURE/ COLONY COUNT CPT-4: 07375 02/16/2019 URINALYSIS NONAUTO W/O SCOPE CPT-4: 58279 02/16/2019 URINE TEST CPT-4: 62668 02/16/2019 THER/PROPH/DIAG INJ SC/IM CPT-4: 98508 05/21/2018 THER/PROPH/DIAG INJ SC/IM CPT-4: 49342 11/26/2017 THER/PROPH/DIAG INJ SC/IM CPT-4: 65163 08/27/2017 THER/PROPH/DIAG INJ SC/IM CPT-4: 23293 06/06/2017 URINALYSIS NONAUTO W/O SCOPE CPT-4: 56025 06/06/2017 GC/CHLAMYDIA DNA (BD-ProbeTec) CPT-4: 58865|37580 8 URINE CULTURE/ COLONY COUNT CPT-4: 10090 06/06/2017 THER/PROPH/DIAG INJ SC/IM CPT-4: 25852 01/04/2017 SPECIMEN HANDLING OFFICE-LAB CPT-4: 79451 10/18/2016 THER/PROPH/DIAG INJ SC/IM CPT-4: 43656 10/12/2016 INFLUENZA ASSAY W/OPTIC CPT-4: 66926 08/08/2016 THER/PROPH/DIAG INJ SC/IM CPT-4: 55697 07/25/2016 THER/PROPH/DIAG INJ SC/IM CPT-4: 14559 05/03/2016 THER/PROPH/DIAG INJ SC/IM CPT-4: 73776 02/20/2016 URINE TEST CPT-4: 26270 02/20/2016 AEROBIC WOUND CULTURE & STN CPT-4: 65419 12/23/2015 THER/PROPH/DIAG INJ SC/IM CPT-4: 86871 11/07/2015 URINE TEST CPT-4: 42895 11/07/2015 THER/PROPH/DIAG INJ SC/IM CPT-4: 26895 08/01/2015 THER/PROPH/DIAG INJ SC/IM CPT-4: 28223 05/11/2015 THER/PROPH/DIAG INJ SC/IM CPT-4: 31056 02/16/2015 THER/PROPH/DIAG INJ SC/IM CPT-4: 88604 11/29/2014 THER/PROPH/DIAG INJ SC/IM CPT-4: 32087 09/09/2014 URINE TEST CPT-4: 52451 06/16/2014 THER/PROPH/DIAG INJ SC/IM CPT-4: 52643 06/16/2014 ROUTINE VENIPUNCTURE CPT-4: 42137 10/07/2013 COMPLETE CBC W/AUTO DIFF WBC CPT-4: 81141 10/07/2013 CHORIONIC GONADOTROPIN TEST CPT-4: 06084 10/07/2013 URINE TEST CPT-4: 68059 09/15/2013 URINALYSIS NONAUTO W/O SCOPE CPT-4: 07870 06/24/2013 URINE CULTURE/ COLONY COUNT CPT-4: 02679 06/24/2013 URINE TEST CPT-4: 50465 09/08/2010 URINALYSIS NONAUTO W/O SCOPE CPT-4: 96658 07/24/2010 URINE CULTURE/ COLONY COUNT CPT-4: 11348 07/24/2010 DESTRUCT PREMALG LESION (Cryosurgery) CPT-4: 54286 DESTRUCT PREMALG LES 2-14 CPT-4: 42378 03/08/2010 Vital Signs Date Vital 11/16/2019 Blood Pressure 1: 119/75 Code: 8480-6 BMI: 24.4 Code: 01885-8 Heart Rate 1: 112 bpm Height: 5'9" Respiratory Rate: 15 bpm SpO2: 98% Tempera ture: 36.8 (C) / 98.2 (F) Weight: 165 lbs 07/07/2019 Blood Pressure 1: 126/82 Code: 8480-6 Heart Rate 1: 100 bpm SpO2: 99% Temperature: 36.8 (C) / 98.2 (F) 06/05/2019 Blood Pressure 1: 131/82 Code: 8480-6 BMI: 26.3 Code: 60064-9 Heart Rate 1: 109 bpm Height: 5'9" Respiratory Rate: 16 bpm SpO2: 99% Tempera ture: 36.7 (C) / 98.1 (F) Weight: 178 lbs 03/16/2019 Blood Pressure 1: 132/86 Code: 8480-6 Heart Rate 1: 73 bpm SpO2: 99% Temperature: 36.6 (C) / 97.9 (F) Weight: 158 lbs 03/03/2018 Blood Pressure 1: 120/88 Code: 8480-6 BMI: 23.9 Code: 52850-3 Heart Rate 1: 81 bpm Height: 5'9" Respiratory Rate: 18 bpm SpO2: 99% Tempera ture: 36.1 (C) / 97.0 (F) Weight: 162 lbs 10/18/2016 Blood Pressure 1: 108/78 Code: 8480-6 BMI: 22.6 Code: 24898-7 Heart Rate 1: 100 bpm Height: 5'9" Respiratory Rate: 20 bpm SpO2: 98% Tempera ture: 37.1 (C) / 98.8 (F) Weight: 153 lbs 08/08/2016 Blood Pressure 1: 114/78 Code: 8480-6 Heart Rate 1: 102 bpm Respiratory Rate: 20 bpm SpO2: 98% Temperature: 36.4 (C) / 97.6 (F) We ight: 152 lbs 05/15/2016 Blood Pressure 1: 124/80 Code: 8480-6 BMI: 23.2 Code: 26052-0 Heart Rate 1: 100 bpm Height: 5'9" Respiratory Rate: 20 bpm Temperature: 37 .0 (C) / 98.6 (F) Weight: 157 lbs 12/23/2015 Blood Pressure 1: 124/78 Code: 8480-6 BMI: 23.0 Code: 54125-9 Heart Rate 1: 92 bpm Height: 5'9" Respiratory Rate: 20 bpm SpO2: 97% Tempera ture: 36.9 (C) / 98.5 (F) Weight: 156 lbs 01/26/2015 Blood Pressure 1: 118/78 Code: 8480-6 BMI: 21.3 Code: 73846-0 Heart Rate 1: 100 bpm Height: 5'9" Respiratory Rate: 20 bpm SpO2: 97% Tempera ture: 36.6 (C) / 97.8 (F) Weight: 144 lbs 06/16/2014 Blood Pressure 1: 118/78 Code: 8480-6 BMI: 23.5 Code: 80606-2 Heart Rate 1: 78 bpm Height: 5'9" Respiratory Rate: 18 bpm Temperature: 36 .1 (C) / 97.0 (F) Weight: 159 lbs 01/28/2014 Blood Pressure 1: 124/78 Code: 8480-6 BMI: 23.2 Code: 98707-9 Heart Rate 1: 88 bpm Height: 5'9" Respiratory Rate: 22 bpm Temperature: 36 .1 (C) / 97.0 (F) Weight: 157 lbs 12/10/2013 Blood Pressure 1: 124/70 Code: 8480-6 BMI: 23.0 Code: 06126-2 Heart Rate 1: 82 bpm Height: 5'9" Respiratory Rate: 20 bpm Temperature: 36 .2 (C) / 97.2 (F) Weight: 156 lbs 10/20/2013 Blood Pressure 1: 118/82 Code: 8480-6 Heart Rate 1: 84 bpm Respiratory Rate: 22 bpm Temperature: 36.5 (C) / 97.7 (F) Weight: 150 lbs 10/07/2013 Blood Pressure 1: 120/80 Code: 8480-6 BMI: 22.2 Code: 41348-0 Heart Rate 1: 68 bpm Height: 5'9" Respiratory Rate: 22 bpm Temperature: 36 .2 (C) / 97.2 (F) Weight: 150 lbs 09/15/2013 Blood Pressure 1: 118/68 Code: 8480-6 BMI: 22.0 Code: 12398-4 Heart Rate 1: 78 bpm Height: 5'9" Respiratory Rate: 20 bpm Temperature: 36 .1 (C) / 97.0 (F) Weight: 149 lbs 06/24/2013 Blood Pressure 1: 112/74 Code: 8480-6 Heart Rate 1: 74 bpm Respiratory Rate: 20 bpm Temperature: 36.6 (C) / 97.9 (F) Weight: 150 lbs 03/05/2013 Blood Pressure 1: 126/88 Code: 8480-6 BMI: 23.5 Code: 61717-9 Heart Rate 1: 80 bpm Height: 5'9" Respiratory Rate: 20 bpm Temperature: 36 .6 (C) / 97.9 (F) Weight: 159 lbs 02/09/2013 Blood Pressure 1: 110/68 Code: 8480-6 BMI: 21.9 Code: 09539-1 Heart Rate 1: 74 bpm Height: 5'9" Respiratory Rate: 22 bpm Temperature: 36 .8 (C) / 98.2 (F) Weight: 148 lbs 09/08/2010 Blood Pressure 1: 124/90 Code: 8480-6 BMI: 21.4 Code: 58689-6 Height: 5'10" Temperature: 36.4 (C) / 97.6 [...] Irregular menstruation, unspecified[ICD10: N92.6] Josefa TALAMANTES DO [facility] CPT-4: 94596 11/19/2019 ([id number]) PREV VISIT EST AGE 18-39 Diagnosis: Encounter for gynecological examination (general) (routine) with abnormal findings[ICD10: Z01.411] Diagnosis: Encounter for general adult medical examination without abnormal findings[ICD10: Z00.00] Diagnosis: Vaginitis[ICD10: N76.0] Diagnosis: Left breast mass[ICD10: N63.20] Diagnosis: Dense breast tissue[ICD10: R92.2] Diagnosis: Bilateral lower extremity edema[ICD10: R60.0] Diagnosis: control counseling[ICD10: Z30.09] Keyanna Mejía CHANNING NELIDAADAM SergioMaria Teresa [facility] [employer] CPT-4: 98289 11/16/2019 ([id number]) OFFICE/OUTPATIENT VISIT EST Diagnosis: Urethritis[ICD10: N34.2] Diagnosis: History of renal stone[ICD10: Z87.442] Josefa BRIAN SergioMaria Teresa [facility] [employer] CPT-4: 00596 07/07/2019 ([id number]) NURSE/OUTPATIENT VISIT EST Diagnosis: Urinary tract infection[ICD10: N39.0] Josefa DE SOUZA SergioMaria Teresa [facility] [employer] [facility] CPT-4: 59820 06/15/2019 ([id number]) OFFICE/OUTPATIENT VISIT EST Diagnosis: Dysuria[ICD10: R30.0] Diagnosis: Pelvic pain in female[ICD10: R10.2] Keyanna STRANGE KATTY SergioMaria Teresa [facility] [employer] CPT-4: 92799 06/05/2019 ([id number]) OFFICE/OUTPATIENT VISIT EST Diagnosis: Left wrist pain[ICD10: M25.532] Diagnosis: Swelling of left upper extremity[ICD10: M79.89] Keyanna Mejía JOSEFA SergioMaria Teresa [facility] [employer] [facility] CPT-4: 51415 03/16/2019 ([id number]) NURSE/OUTPATIENT VISIT EST Diagnosis: Urinary tract infection[ICD10: N39.0] Josefa DE SOUZA SergioMaria Teresa [facility] [employer] [facility] CPT-4: 91234 03/02/2019 ([id number]) NURSE/OUTPATIENT VISIT EST Diagnosis: Irregular menstruation, unspecified[ICD10: N92.6] Diagnosis: Urinary tract infection[ICD10: N39.0] Josefa DE SOUZA SergioMaria Teresa [facility] [employer] [facility] CPT-4: 76514 02/16/2019 ([id number]) NURSE/OUTPATIENT VISIT EST Diagnosis: Irregular menstruation, unspecified[ICD10: N92.6] Josefa TALAMANTES DO [facility] CPT-4: 20096 05/21/2018 ([id number]) OFFICE/OUTPATIENT VISIT EST Diagnosis: Irregular menstruation, unspecified[ICD10: N92.6] Diagnosis: Diseases of lips[ICD10: K13.0] Diagnosis: 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] Keyanna TALAMANTES DO [facility] CPT-4: 89678 03/03/2018 ([id number]) NURSE/OUTPATIENT VISIT EST Diagnosis: Irregular menstruation, unspecified[ICD10: N92.6] Josefa TALAMANTES DO [facility] CPT-4: 54730 11/26/2017 ([id number]) OFFICE/OUTPATIENT VISIT EST Diagnosis: Irregular menstruation, unspecified[ICD10: N92.6] Josefa TALAMANTES DO [facility] CPT-4: 58901 08/27/2017 ([id number]) OFFICE/OUTPATIENT VISIT EST Diagnosis: Dysuria[ICD10: R30.0] Diagnosis: Irregular menstruation, unspecified[ICD10: N92.6] Josefa TALAMANTES DO [facility] CPT-4: 03428 06/06/2017 ([id number]) OFFICE/OUTPATIENT VISIT EST Diagnosis: Irregular menstruation, unspecified[ICD10: N92.6] Josefa TALAMANTES DO [facility] CPT-4: 48233 01/04/2017 ([id number]) PREV VISIT EST AGE 18-39 Diagnosis: Encounter for general adult medical examination without abnormal findings[ICD10: Z00.00] Diagnosis: Encounter for gynecological examination (general) (routine) without abnormal findings[ICD10: Z01.419] Diagnosis: Gastro-esophageal reflux disease without esophagitis[ICD10: K21.9] Diagnosis: Dysphagia, pharyngeal phase[ICD10: R13.13] Josefa TALAMANTES DO [facility] CPT-4: 32863 10/18/2016 ([id number]) OFFICE/OUTPATIENT VISIT EST Diagnosis: Irregular menstruation, unspecified[ICD10: N92.6] Josefa TALAMANTES DO [facility] CPT-4: 78550 10/12/2016 ([id number]) OFFICE/OUTPATIENT VISIT EST Diagnosis: Fever, unspecified[ICD10: R50.9] Diagnosis: Influenza due to identified novel influenza A virus with other respiratory manifestations[ICD10: J09.X2] Catrina TALAMANTES DO [facility] CPT-4: 15975 08/08/2016 ([id number]) OFFICE/OUTPATIENT VISIT EST Diagnosis: Irregular menstruation, unspecified[ICD10: N92.6] Josefa TALAMANTES DO [facility] CPT-4: 59085 07/25/2016 ([id number]) OFFICE/OUTPATIENT VISIT EST Diagnosis: Right upper quadrant pain[ICD10: R10.11] Diagnosis: Unspecified abdominal pain[ICD10: R10.9] Josefa TALAMANTES DO [facility] CPT-4: 67626 05/15/2016 ([id number]) OFFICE/OUTPATIENT VISIT EST Diagnosis: Irregular menstruation, unspecified[ICD10: N92.6] Josefa TALAMANTES DO [facility] CPT-4: 73551 05/03/2016 ([id number]) OFFICE/OUTPATIENT VISIT EST Diagnosis: Irregular menstruation, unspecified[ICD10: N92.6] Josefa TALAMANTES DO [facility] CPT-4: 30925 02/20/2016 OFFICE/OUTPATIENT VISIT EST Diagnosis: Cutaneous abscess of buttock[ICD10: L02.31] Kitty Caldera JOSEFA TALAMANTES DO [facility] CPT-4: 16752 12/23/2015 ([id number]) OFFICE/OUTPATIENT VISIT EST Diagnosis: Irregular menstruation, unspecified[ICD10: N92.6] Josefa TALAMANTES DO [facility] CPT-4: 54331 11/07/2015 ([id number]) OFFICE/OUTPATIENT VISIT EST Diagnosis: Irregular menstruation, unspecified[ICD10: N92.6] Josefa TALAMANTES DO [facility] CPT-4: 35486 08/01/2015 ([id number]) OFFICE/OUTPATIENT VISIT EST Diagnosis: Irregular menstruation, unspecified[ICD10: N92.6] Josefa TALAMANTES DO [facility] CPT-4: 86810 05/11/2015 ([id number]) OFFICE/OUTPATIENT VISIT EST Diagnosis: Irregular menstruation, unspecified[ICD10: N92.6] Josefa TALAMANTES DO [facility] CPT-4: 65614 02/16/2015 OFFICE/OUTPATIENT VISIT EST Diagnosis: SINUSITIS, ACUTE[ICD9: 461.9] Malgorzata TALAMANTES DO [facility] CPT-4: 14420 01/26/2015 ([id number]) OFFICE/OUTPATIENT VISIT EST Diagnosis: IRREGULAR MENSTRUATION[ICD9: 626.4] Josefa TALAMANTES DO [facility] CPT-4: 59667 11/29/2014 ([id number]) OFFICE/OUTPATIENT VISIT EST Diagnosis: IRREGULAR MENSTRUATION[ICD9: 626.4] Josefa TALAMANTES DO [facility] CPT-4: 84645 09/09/2014 ([id number]) OFFICE/OUTPATIENT VISIT EST Diagnosis: IRREGULAR MENSTRUATION[ICD9: 626.4] Diagnosis: General counseling and advice on contraceptive management[ICD9: V25.09] Diagnosis: Anxiety and depression[ICD9: 300.4] Malgorzata TALAMANTES DO [facility] CPT-4: 26472 06/16/2014 OFFICE/OUTPATIENT VISIT EST Diagnosis: Right upper quadrant pain[ICD9: 789.01] Malgorzata TALAMANTES DO [facility] CPT-4: 79582 01/28/2014 OFFICE/OUTPATIENT VISIT EST Diagnosis: Right upper quadrant pain[ICD9: 789.01] Malgorzata TALAMANTES DO [facility] CPT-4: 28604 12/10/2013 OFFICE/OUTPATIENT VISIT EST Diagnosis: Anxiety and depression[ICD9: 300.4] Malgorzata ALANIZ SMaria Teresa TALAMANTES DO [facility] CPT-4: 64436 10/20/2013 OFFICE/OUTPATIENT VISIT EST Diagnosis: Menorrhagia[ICD9: 626.2] Malgorzata CULVER [facility] CPT-4: 08657 10/07/2013 OFFICE/OUTPATIENT VISIT EST Diagnosis: IRREGULAR MENSTRUATION[ICD9: 626.4] Malgorzata TALAMANTES DO [facility] CPT-4: 30034 09/15/2013 OFFICE/OUTPATIENT VISIT EST Diagnosis: HEMATURIA NOS[ICD9: 599.70] Diagnosis: Abdominal discomfort in right upper quadrant[ICD9: 789.01] Malgorzata TALAMANTES DO [facility] CPT-4: 88183 06/24/2013 ([id number]) OFFICE/OUTPATIENT VISIT EST Diagnosis: ABDOMINAL PAIN[ICD9: 789.00] Diagnosis: GERD[ICD9: 530.81] Josefa TALAMANTES DO [facility] CPT-4: 26698 03/05/2013 OFFICE/OUTPATIENT VISIT EST Diagnosis: General counseling and advice on contraceptive management[ICD9: V25.09] Diagnosis: IRREGULAR MENSTRUATION[ICD9: 626.4] Malgorzata TALAMANTES [facility] CPT-4: 25568 02/09/2013 ([id number]) OFFICE/OUTPATIENT VISIT EST Justine TALAMANTES DO [facility] CPT-4: 90004 09/08/2010 ([id number]) OFFICE/OUTPATIENT VISIT EST Justine TALAMANTES DO [facility] CPT-4: 45230 07/24/2010 Plan of Care Planned Activity Notes Codes Status Date Care Plan: Belle BOSE ADD ON TO LABS SENT ON 11/16/2019 Pending 11/17/2019 Visit Diagnosis Plan: Encounter for gyne cological examination (general) (routine) with abnormal findings Discussion: fasting labs to be completed this week at [facility]. order written and given to patient. [...] ICD-10 : R60.0 11/16/2019 Appointment: Keyanna Mejía [facility] [employer] [address] Annual Well Visit 11/16/2019 Visit Diagnosis Plan: Urethritis Discussion: Diflucan and topical nystatin ICD-9 : 597.80 ICD-10 : N34.2 07/07/2019 Visit Diagnosis Plan: History of renal stone Discussio n: Flomax Push water If not improving within 48hrs or if worsening then will need CT scan to assess for stone ICD-9 : V13.01 ICD-10 : Z87.442 07/07/2019 Appointment: Josefa Talamantes WPtel: [address] [place] [address] ACUTE ILLNESS 07/07/2019 Patient Education: nystatin- [employer] Coupon [id number] [email or web address] Completed 07/07/2019 Appointment: Josefa Talamantes WPtel: [address] [place] [address] UA 06/15/2019 Visit Diagnosis Plan: Dysuria Discussion: due to recur rent pain and worsening symptoms, rocephin 1 gm given in office. will send urine off for culture and call on saturday if any changes needed. instructed to push fluids through the w eekend and go to urgent care with any worsening. ICD-9 : 788.1 ICD-10 : R30.0 06/05/2019 Appointment: Keyanna Mejía [address] FOLLOW UP 06/05/2019 Visit Diagnosis Plan: Left [...] ICD-10 : M25.532 03/16/2019 Appointment: Keyanna Mejía [address] Hospital Follow Up 03/16/2019 Appointment: Josefa Talamantes WPtel: [address] [place] [address] [place] UA 03/02/2019 Appointment: Josefa Talamantes WPtel: [address] [place], [place] [phone] [place] INJECTION 02/16/2019 Appointment: Josefa Talamantes WPtel: [address] [place], [place] [phone] [place] INJECTION 05/21/2018 Visit Diagnosis Plan: Nontoxic [...] performed in office and negative. patient to pick up man depo prescription and bring back to office [...] ICD-10 : K13.0 03/03/2018 Appointment: [facility] [place] ACUTE ILLNESS 03/03/2018 Patient Education: Patient Medication Summary Completed 03/03/2018 Care Plan: US EXAM OF HEAD AND NECK thyroid LOIN C : 76321-5 Pending 03/03/2018 Appointment: Josefa Talamantes WPtel: [address] [place], [place] [phone] [place] CANCELED 02/27/2018 Appointment: Josefa Talamantes WPtel: [address] [place] [phone] [place] INJECTION 11/26/2017 Patient Education: Patient Medication Summary Completed 11/26/2017 Appointment: Josefa Talamantes WPtel: [address] [place] [phone] [place] INJECTION 08/27/2017 Patient Education: Patient Medication Summary Completed 08/27/2017 Appointment: Josefa Talamantes WPtel: [address] [place], [place] [phone] [place] INJECTION 06/06/2017 Patient Education: Patient Medication Summary Completed 06/06/2017 Appointment: Josefa Talamantes WPtel: [address] [place], [place] [id number] [place] INJECTION 01/04/2017 Patient Education: Patient Medication Summary Completed 01/04/2017 Appointment: Josefa Talamantes WPtel: [address] [place], [place] [id number] [place] 11/19 lm `sl 11/21 lm `sl NO SHOW 11/22/19 Patient Education: Patient Medication Summary Completed 10/22/2016 Care Plan: US EXAM OF HEAD AND NECK Thyroid Ultrasound LOIN C : 47527-3 Pending 10/22/2016 Visit Diagnosis Plan: Gastro-esophageal reflux [...] : R13.13 10/18/2016 Appointment: Josefa Talamantes WPtel: [address] [place], [place] [id number] [place] 6/7 lm ` Annual Well Visit 10/18/2016 Patient Education: Patient Medication Summary Completed 10/18/2016 Appointment: Josefa Talamantes WPtel: [address] [place], [place] [phone] [place] INJECTION 10/12/2016 Patient Education: Patient Medication Summary Completed 10/12/2016 Visit Diagnosis Plan: Influenza due to i dentified novel influenza A virus with other respiratory manifestations Discussion: Flu A positive Rx as above Supportive care otherwise Contagious precautions discussed Notify kids' provider of exposure for their instructions ICD-9 : 488.02 ICD-10 : J09.X2 08/08/2016 Appointment: Catrina Bran [address] [place], [place] [phone] ACUTE ILLNESS 08/08/2016 Patient Education: Patient Medication Summary Completed 08/08/2016 Appointment: Josefa Talamantes WPtel: [address] [place], [place] [phone] [place] INJECTION 07/25/2016 Patient Education: Patient Medication Summary Completed 07/25/2016 Visit Plan: Finish abx and then recultur e 48hrs after completion Add levsin and zorvolex 05/15/2016 Appointment: Josefa Talamantes WPtel: [address] [place], [place] [phone] [place] 05/14 ` 05/15 confirmed~ Hospital Follow Up 0 05/15/2016 Patient Education: Patient Medication Summary Completed 05/15/2016 Appointment: Catrina Bran [address] [place], [place] [id number] 05/09 admitted into the hospital last night~ ACUTE ILLNESS 05/09/2016 Appointment: Josefa Talamantes WPtel: [address] [place] [phone] [place] INJECTION 05/03/2016 Patient Education: Patient Medication Summary Completed 05/03/2016 Appointment: Josefa Talamantes WPtel: [address] [place] [id number] [place] INJECTION 02/20/2016 Patient Education: Patient Medication Summary Completed 02/20/2016 Visit Plan: ERx for Bactrim and Bactroba n Called to [facility] Ultram 50mg 1 po q 4-6 hours prn pain #20 Warm moist heat to area qid Watch for s/s of worsening, go to over weekend Discussed SE of meds including s/s of SJS which would require an ER visit C&S obtained 12/23/2015 Appointment: Kitty Caldera WPtel: [address] [place], [place] [phone] ACUTE ILLNESS 12/23/2015 Patient Education: Patient Medication Summary Completed 12/23/2015 Appointment: Josefa Talamantes WPtel: [address] [place], [place] [phone] [place] INJECTION 11/07/2015 Patient Education: Patient Medication Summary Completed 11/07/2015 Appointment: Josefa Talamantes WPtel: [address] [place], [place] [phone] [place] INJECTION 08/01/2015 Patient Education: Patient Medication Summary Completed 08/01/2015 Appointment: Josefa Talamantes WPtel: [address] [place] [phone] [place] INJECTION 05/11/2015 Patient Education: Patient Medication Summary Completed 05/11/2015 Appointment: Malgorzata Islas WPtel: [address] [place], [place] [phone] [place] PAP 04/05/2015 Appointment: Josefa Talamantes WPtel: [address] [place], [place] [id number] [place] INJECTION 02/16/2015 Patient Education: Patient Medication Summary Completed 02/16/2015 Visit Plan: Daily nasal saline rinses Fl onase nasal spray and daily Zyrtec Medrol dose pack Z-jhonathan as directed 01/26/2015 Appointment: Malgorzata Islas WPtel: [address] [place], [place] [phone] ACUTE ILLNESS 01/26/2015 Patient Education: Patient Medication Summary Completed 01/26/2015 Appointment: Josefa Talamantes WPtel: [address] [place], [place] [phone] [place] INJECTION 11/29/2014 Patient Education: Patient Medication Summary Completed 11/29/2014 Appointment: Josefa Talamantes WPtel: [address] [place], [place] [phone] INJECTION 09/09/2014 Patient Education: Patient Medication Summary Completed 09/09/2014 Appointment: Malgorzata Islas WPtel: [address] [place], [place] [phone] FOLLOW UP 06/16/2014 Patient Education: Patient Medication Summary Completed 06/16/2014 Appointment: Malgorzata Islas WPtel: [address] [place], [place] [phone] 06/02/14 appointment scheduled 06/03/14 no showed PAP 06/03/2014 Appointment: Malgorzata Islas WPtel: [address] [place], [place] [phone] FOLLOW UP 01/28/2014 Patient Education: Patient Medication Summary Completed 01/28/2014 Care Plan: [place] : [address]-8 Ordered 01/28/2014 Care Plan: AMYLASE Pending 4 Appointment: Malgorzata Islas WPtel: [address] [place], [place] [phone] [place] FOLLOW UP 12/10/2013 Patient Education: Patient Medication Summary Completed 12/10/2013 Appointment: Malgorzata Islas WPtel: [address] [place], [place] [phone] 11/11 vm 11/12 No Show FOLLOW UP 11/12/2013 Appointment: Malgorzata Islas WPtel: [address] [place], [place] [phone] [place] FOLLOW UP 10/20/2013 Patient Education: Patient Medication Summary Completed 10/20/2013 Visit Plan: Quantitative Hcg and CBC tod ay. Transvaginal/Transabdominal sonogram stat Discussed with MIS[employer] INSPECTOR [employer]FL[employer] and BHCG 343 so will recheck in 1week as long as not worsening 10/07/2013 Appointment: Malgorzata Islas WPtel: [address] [place] [address] ACUTE ILLNESS 10/07/2013 Patient Education: Patient Medication Summary Completed 10/07/2013 Appointment: Malgorzata Islas WPtel: [address] [place] [address] ACUTE ILLNESS 09/15/2013 Patient Education: Patient Medication Summary Completed 09/15/2013 Appointment: Malgorzata Islas WPtel: [address] [place], [place] [phone] ACUTE ILLNESS 06/24/2013 Patient Education: Patient Medication Summary Completed 06/24/2013 Appointment: Malgorzata Islas WPtel: [address] [place], [place] [phone] [place] appt was scheduled today then patient no showed the visit ACUTE ILLNESS 05/21/2013 Visit Plan: Check CMP, CBC, UA CT scan o f abdomen Omeprazole 03/05/2013 Appointment: Josefa Talamantes WPtel: [address] [place], [place] [phone] ACUTE ILLNESS 03/05/2013 Appointment: Josefa Talamantes WPtel: [address] [place], [place] [phone] 03/02 canceled, wrong patient FOLLOW UP Patient Education: Patient Medication Summary Completed 03/05/2013 Appointment: Malgorzata Islasteashely: [address] [place] [address] ACUTE ILLNESS 02/09/2013 Patient Education: Patient Medication Summary Completed 02/09/2013 Appointment: Justine Ortega WPtel: [address] [place] [address] ACUTE ILLNESS 09/08/2010 Patient Education: Patient Medication Summary Completed 09/08/2010 Appointment: Justine Ortega WPtel: [address] [place] [address] [place] PAP 08/08/2010 Appointment: Justine Ortega WPtel: [address] [place] [address] ACUTE ILLNESS 07/24/2010 Patient Education: Patient Medication Summary Completed 07/24/2010 Visit Plan: All warts shaved with 11-rekha de scalpel and then cryotherapy x3 Will followup with DNCB treatment 03/08/2010 Appointment: Josefa Talamantes WPtel: [address] [place] [address] ACUTE ILLNESS 03/08/2010 Patient Education: Patient Medication Summary Completed 03/08/2010 Appointment: Josefa Talamantes WPtel: [address] [place] [address] [place] PAP 09/14/2009 Referral: Roney Galloway WPtel: [address] [address] [place] Referral Initiated Referral: Brian Floyd WPtel: [address] [id number] [place] Referral Initiated Referral: Referral Initiated Instructions [...] CBC today. Transvaginal/Transabdominal sonogram stat Discussed with [employer] INS[employer]OR [employer] and BHCG 343 so will recheck in [...]
--- OUTSIDE RECORDS SUMMARY | 2019-12-11 21:58 | XMS REPORT | CCD ---
Author Author Brenda Talamantes D.O. Organization [facility] Address [address] [place] [address] Phone Care Team Providers Care Otr Flatbed Driver Name Role Phone Josefa Talamantes D.O., PP Unavailable CCM Unavailable Summary Purpose Interface Exchange Insurance Providers Payer name Policy type / Coverage type Covered constitution party ID Effective Begin Date Effective End Date [employer] [facility] Commercial Insurance [id number] Unknown Family History Family History data not found Social History Social History Element Codes Description Effective Dates Tobacco history SNOMED CT: 201971002 Unknown if ever smoked 01/12 Allergies, Adverse [...] Fill Instructions metronidazole 500 mg tablet RxNorm: 036285 1 Tablet(s) Oral two times a day 11/17/2019 11/24/2019 Active metronidazole 500 mg tablet RxNorm: 722742 1 Tablet(s) Oral two times a day 11/17/2019 11/16/2019 Inactive Depo-Provera 150 mg/mL intramuscular suspension RxNorm: 1000 128 1 Application Intramuscular 11/16/2019 No Stop Date Active Diflucan 100 mg tablet RxNorm: 874807 1 Tablet(s) Oral QD 07/07/2019 07/14/2019 Inactive Flomax 0.4 mg capsule RxNorm: 167418 1 Capsule(s) Oral QPM for kidney stone 07/07/2019 08/06/2019 Inactive nystatin 100,000 unit/gram topical cream RxNorm: 242633 Application Topical two times a day to periurethral area 07/07/2019 11/16/2019 Inactive Bactrim DS 800 mg-160 mg tablet RxNorm: 328211 1 Tablet(s) Oral two times a day 06/08/2019 06/13/2019 Inactive Bactrim DS 800 mg-160 mg tablet RxNorm: 142009 1 Tablet(s) Oral two times a day 06/08/2019 06/07/2019 Inactive ibuprofen 800 mg tablet RxNorm: 328772 1 Tablet(s) Oral Q8H as needed 03/16/2019 06/05/2019 Inactive Cipro 500 mg tablet RxNorm: 563355 1 Tablet(s) Oral two times a day 03/04/2019 03/11/2019 Inactive Cipro 500 mg tablet RxNorm: 607035 1 Tablet(s) Oral two times a day 03/04/2019 03/03/2019 Inactive Macrobid 100 mg capsule RxNorm: 695962 1 Capsule(s) Oral two ti mes a day 02/16/2019 02/15/2019 Inactive Macrobid 100 mg capsule RxNorm: 278346 1 Capsule(s) Oral two ti mes a [...] 11/24/2017 Inactive Pepcid 40 mg tablet RxNorm: 830356 1 Tablet(s) PO QD 10/18/201603/02 Inactive Depo-Provera 150 mg/mL intramuscular suspension RxNorm: 1000 128 Milliliter(s) 1 Milliliter(s) IM 10/10/2016 06/04/2017 Inactive Tamiflu 75 mg capsule RxNorm: 442613 1 Capsule(s) PO BID 08/08/2016 0 08/12/2016 Inactive Levsin 0.125 mg tablet RxNorm: 2333726 1 Tablet(s) PO TID for fl ank pain 05/15/2016 10/17/2016 Inactive Bactrim DS 800 mg-160 mg tablet RxNorm: 348662 1 Tablet(s) PO BID 0 12/23/2015 01/01/2016 Inactive mupirocin 2 % topical ointment RxNorm: 259443 Application TOP TID 0 12/23/2015 12/29/2015 Inactive Depo-Provera 150 mg/mL intramuscular suspension RxNorm: 1000 128 Milliliter(s) 1 Milliliter(s) IM 11/08/2015 10/09/2016 Inactive Xanax 0.25 mg tablet RxNorm: 957368 TAKE ONE-HALF TO ON E TABLET BY MOUTH NEEDED FOR ANXIETY 04/11/2015 05/10/2015 Inactive Generic For:X ANAX 0.25 MG TABLET 04/11/2015 2:54:57 PM Depo-Provera 150 mg/mL intramuscular suspension RxNorm: 1000 128 Milliliter(s) 1 Milliliter(s) IM 02/15/2015 11/07/2015 Inactive azithromycin 250 mg tablet RxNorm: 959987 2 Tablet(s) P O today, then one tablet on days 2 - 5 01/26/2015 12/22/2015 Inactive Medrol (Jhonathan) 4 mg tablets in a dose pack RxNorm: 081836 Tablet(s) P O 01/26/2015 12/22/2015 Inactive Depo-Provera 150 mg/mL intramuscular suspension RxNorm: 1000 128 1 Milliliter(s) IM 09/06/2014 02/15/2015 Inactive Xanax 0.25 mg tablet RxNorm: 364543 1/2 - 1 Tablet(s) PO as nee ded for anxiety 06/16/2014 04/12/2015 Inactive Zoloft 50 mg tablet RxNorm: 291399 1 Tablet(s) PO QD 06/16/201412/21 Inactive Flexeril [...] 2014 Inactive Xanax 0.25 mg tablet RxNorm: 334908 1/2 - 1 Tablet(s) PO as nee ded for anxiety 01/28/2014 06/15/2014 Inactive naproxen 500 mg tablet RxNorm: 225526 1 Tablet(s) PO BID 12/10/2013 0 01/08/2014 Inactive Zoloft 50 mg tablet RxNorm: 533577 1 Tablet(s) PO QD 12/10/201304/08 Inactive Xanax 0.25 mg tablet RxNorm: 703577 1/2 - 1 Tablet(s) PO as nee ded for anxiety 12/10/2013 01/27/2014 Inactive Xanax 0.25 mg tablet RxNorm: 033255 1 Tablet(s) PO Q8H 10/20/2013 Inactive Zoloft 50 mg tablet RxNorm: 003767 1/2 Tablet(s) PO x 6 days then on1 tablet daily 10/20/2013 11/18/2013 Inactive Loestrin Fe 06/01 (28) 1 mg-20 mcg tablet RxNorm: 3681428 1 Table t(s) PO QD 10/20/2013 05/03/2014 Inactive phenazopyridine 100 mg tablet RxNorm: 1076715 1 Tablet(s) PO Q8H 06/26/2013 Inactive Macrobid 100 mg capsule RxNorm: 352421 1 Capsule(s) PO BID 06/25/19 14 07/04/2013 Inactive phenazopyridine 100 mg tablet RxNorm: 4359125 1 Tablet(s) PO Q8H 06/24/2013 Inactive Macrobid 100 mg capsule RxNorm: 304289 1 Capsule(s) PO BID 07/25/1908/02/2010 Inactive Apri 0.15 mg-30 mcg tablet RxNorm: 774192 1 Tablet(s) PO QD As directed. No Start Date 06/23/2013 Inactive omeprazole 40 mg capsule,delayed release RxNorm: 217167 1 Capsule(s) PO QD for stomach No Start Date 06/23/2013 Inactive naproxen 500 mg tablet RxNorm: 004265 1 Tablet(s) PO BID No Start D ate 06/15/2014 Inactive hydrocodone 10 mg-acetaminophen 325 mg tablet RxNorm: 514275 Tablet(s) PO as needed for pain No Start Date 12/22/2015 Inactive Zoloft 50 mg tablet RxNorm: 110192 1 Tablet(s) PO QD No Start Date Inactive hydrocodone 5 mg-acetaminophen 325 mg tablet RxNorm: 819613 1 Tablet(s) PO QID as needed for pain No Start Date 09/14/2013 Inactive Medication Administered No Medication Administered data Immunizations No Immunization data Results Observation Observation Code Item Item Code Result Date S ervice Location V PROF SWB [id number] Whiff TNP:Duplicate Order 11/17/19 20 Unknown V PROF SWB [id number] WBC Vaginal TNP:Duplicate Order 2019 Unknown V PROF SWB [id number] Clue Cells TNP:Duplicate Order 020 Unknown V PROF SWB [id number] RADIOLOGY ADMINISTRATOR Lactobac TNP:Duplicate Order 2019 Unknown V PROF SWB [id number] RADIOLOGY ADMINISTRATOR Curved GNR TNP:Duplicate Order 11/2019 Unknown V PROF SWB [id number] Yeast Vaginal TNP:Duplicate Order 11/2019 Unknown V PROF SWB [id number] RADIOLOGY ADMINISTRATOR SM GVB TNP:Duplicate Order 11/17/19 20 Unknown V PROF SWB [id number] RADIOLOGY ADMINISTRATOR Swb Trich Ag TNP:Duplicate Order Unknown V PROF SWB [id number] RADIOLOGY ADMINISTRATOR BV Stain TNP:Duplicate Order 2019 Unknown V PROF SWB [id number] RADIOLOGY ADMINISTRATOR Interp TNP:Duplicate Order 11/17/19 20 Unknown V PROF SWB [id number] Conf BV Stain TNP:Duplicate Order 11/2019 Unknown V PROF SWB [id number] Whiff Positive 11/17/2019 Unknown V PROF SWB [id number] WBC Vaginal Few 11/17/2019 Unknow n V PROF SWB [id number] Clue Cells >20% 11/17/2019 Unknown V PROF SWB [id number] Yeast Vaginal None 11/17/2019 Unkn own V PROF SWB [id number] RADIOLOGY ADMINISTRATOR Swb Trich Ag Negative 11/17/2019 Un known V PROF SWB [id number] RADIOLOGY ADMINISTRATOR BV Stain 10 11/17/2019 Unknow n V PROF SWB [id number] RADIOLOGY ADMINISTRATOR Interp Results indicate Bacteria l Vaginosis Syndrome. 11/17/2019 Unknown VAG PROF [id number] PH TNP:Improper Specimen 020 Unknown VAG PROF [id number] Whiff TNP:Improper Specimen 020 Unknown VAG PROF [id number] WBC Vaginal TNP:Improper Specimen 11/15 Unknown VAG PROF [id number] RADIOLOGY ADMINISTRATOR Lactobac TNP:Improper Specimen 11/15 Unknown VAG PROF [id number] Clue Cells TNP:Improper Specimen 2019 Unknown VAG PROF [id number] RADIOLOGY ADMINISTRATOR Curved GNR TNP:Improper Specimen 10/2019 Unknown VAG PROF [id number] Yeast Vaginal TNP:Improper Specimen 10/2019 Unknown VAG PROF [id number] Trichomonas TNP:Improper Specimen 11/15 Unknown VAG PROF [id number] RADIOLOGY ADMINISTRATOR SM GVB TNP:Improper Specimen 020 Unknown VAG PROF [id number] RADIOLOGY ADMINISTRATOR BV Stain TNP:Improper Specimen 11/15 Unknown VAG PROF [id number] RADIOLOGY ADMINISTRATOR Intp TNP:Improper Specimen 020 Unknown VAG PROF [id number] Conf BV Stain TNP:Improper Specimen 10/2019 Unknown LIPASE 58683 LIPASE 14 IU/L 01/28/2014 Unknown COMPLETE BLOOD COUNT [id number] WBC 6.5 10e9/L 01/29/20 14 Unknown COMPLETE BLOOD COUNT [id number] RBC 4.54 10e12/L 2013 Unknown COMPLETE BLOOD COUNT [id number] HGB 12.1 g/dL 4 Unknown COMPLETE BLOOD COUNT [id number] HCT DET 38.0 % 4 Unknown COMPLETE BLOOD COUNT [id number] MCV 83.7 fL 4 Unknown COMPLETE BLOOD COUNT [id number] MCH 26.7 pg 4 Unknown COMPLETE BLOOD COUNT [id number] MCHC 31.8 g/dL 4 Unknown COMPLETE BLOOD COUNT [id number] PLT 218 10e9/L 01/29/20 14 Unknown COMPLETE BLOOD COUNT [id number] MPV 12.8 fL 4 Unknown COMPLETE BLOOD COUNT [id number] RACHNA % 56.5 % 4 Unknown COMPLETE BLOOD COUNT [id number] LY % 32.3 % 4 Unknown COMPLETE BLOOD COUNT [id number] MON % 8.6 % 4 Unknown COMPLETE BLOOD COUNT [id number] EOS % 2.1 % 4 Unknown COMPLETE BLOOD COUNT [id number] BASO % 0.5 % 4 Unknown COMPLETE BLOOD COUNT [id number] RDW 18.4 % 4 Unknown COMPLETE BLOOD COUNT [id number] ABS RACHNA 3.67 10e9/L 014 Unknown COMPLETE BLOOD COUNT [id number] ABS LYMPH 2.10 10e9/L 014 Unknown COMPLETE BLOOD COUNT [id number] ABS MONO 0.56 10e9/L 014 Unknown COMPLETE BLOOD COUNT [id number] ABS EOS 0.14 10e9/L 014 Unknown COMPLETE BLOOD COUNT [id number] ABS BASO 0.03 10e9/L 014 Unknown COMPLETE BLOOD COUNT [id number] RDW-SD 55.5 fL 4 Unknown COMPREHENSIVE METABOLIC 77060 AST 13 U/L 2013 Unknown COMPREHENSIVE METABOLIC 97727 ALT 7 IU/L 2013 Unknown COMPREHENSIVE METABOLIC 41168 BUN 8 MG/DL 2013 Unknown COMPREHENSIVE METABOLIC 30754 ALBUMIN 4.5 GM/DL 2013 Unknown COMPREHENSIVE METABOLIC 18021 CHLORIDE 106 MMOL/L 01/28 Unknown COMPREHENSIVE METABOLIC 39045 BILI TOT 0.4 MG/DL 2013 Unknown COMPREHENSIVE METABOLIC 27779 ALK PHOS 55 U/L 2013 Unknown COMPREHENSIVE METABOLIC 60376 SODIUM 138 MMOL/L 01/28 Unknown COMPREHENSIVE METABOLIC 57791 CREATININE 0.73 MG/DL 01/11 Unknown COMPREHENSIVE METABOLIC 94343 CALCIUM 9.9 MG/DL 2013 Unknown COMPREHENSIVE METABOLIC 05110 POTASSIUM 3.8 MMOL/L 01/28 Unknown COMPREHENSIVE METABOLIC 65684 PROT TOT 7.4 GM/DL 2013 Unknown COMPREHENSIVE METABOLIC 50403 Glucose 96 MG/DL 2013 Unknown COMPREHENSIVE METABOLIC 47454 BICARB 27 MMOL/L 2013 Unknown COMPREHENSIVE METABOLIC 72138 ANION GAP 5 MEQ/L 2013 Unknown AMYLASE 37552 AMYLASE 42 IU/L 01/28/2014 Unknown GFR CALC [id number] GFR AA >60 ML/MIN 01/28/2014 Unknown GFR CALC [id number] GFR NON-AA >60 ML/MIN 01/28/2014 Unknown Procedures Procedure Codes Date THER/PROPH/DIAG INJ SC/IM CPT-4: 61752 11/19/2019 URINE TEST CPT-4: 17474 11/16/2019 SPECIMEN HANDLING OFFICE-LAB CPT-4: 98742 11/16/2019 URINE CULTURE/ COLONY COUNT CPT-4: 96649 06/15/2019 URINALYSIS NONAUTO W/O SCOPE CPT-4: 83234 06/05/2019 CEFTRIAXONE SODIUM INJECTION CPT-4: J0696 06/05/2019 THER/PROPH/DIAG INJ SC/IM CPT-4: 87947 06/05/2019 URINE CULTURE/ COLONY COUNT CPT-4: 67525 06/05/2019 URINE CULTURE/ COLONY COUNT CPT-4: 13268 03/02/2019 THER/PROPH/DIAG INJ SC/IM CPT-4: 19394 02/16/2019 URINE CULTURE/ COLONY COUNT CPT-4: 71525 02/16/2019 URINALYSIS NONAUTO W/O SCOPE CPT-4: 52891 02/16/2019 URINE TEST CPT-4: 29242 02/16/2019 THER/PROPH/DIAG INJ SC/IM CPT-4: 30419 05/21/2018 THER/PROPH/DIAG INJ SC/IM CPT-4: 22368 11/26/2017 THER/PROPH/DIAG INJ SC/IM CPT-4: 71271 08/27/2017 THER/PROPH/DIAG INJ SC/IM CPT-4: 18175 06/06/2017 URINALYSIS NONAUTO W/O SCOPE CPT-4: 56381 06/06/2017 GC/CHLAMYDIA DNA (BD-ProbeTec) CPT-4: 80292|29656 8 URINE CULTURE/ COLONY COUNT CPT-4: 61619 06/06/2017 THER/PROPH/DIAG INJ SC/IM CPT-4: 19221 01/04/2017 SPECIMEN HANDLING OFFICE-LAB CPT-4: 97391 10/18/2016 THER/PROPH/DIAG INJ SC/IM CPT-4: 83678 10/12/2016 INFLUENZA ASSAY W/OPTIC CPT-4: 16347 08/08/2016 THER/PROPH/DIAG INJ SC/IM CPT-4: 06424 07/25/2016 THER/PROPH/DIAG INJ SC/IM CPT-4: 76992 05/03/2016 THER/PROPH/DIAG INJ SC/IM CPT-4: 16422 02/20/2016 URINE TEST CPT-4: 21193 02/20/2016 AEROBIC WOUND CULTURE & STN CPT-4: 32207 12/23/2015 THER/PROPH/DIAG INJ SC/IM CPT-4: 84334 11/07/2015 URINE TEST CPT-4: 45579 11/07/2015 THER/PROPH/DIAG INJ SC/IM CPT-4: 35850 08/01/2015 THER/PROPH/DIAG INJ SC/IM CPT-4: 47648 05/11/2015 THER/PROPH/DIAG INJ SC/IM CPT-4: 84778 02/16/2015 THER/PROPH/DIAG INJ SC/IM CPT-4: 29379 11/29/2014 THER/PROPH/DIAG INJ SC/IM CPT-4: 77050 09/09/2014 URINE TEST CPT-4: 68331 06/16/2014 THER/PROPH/DIAG INJ SC/IM CPT-4: 88611 06/16/2014 ROUTINE VENIPUNCTURE CPT-4: 83614 10/07/2013 COMPLETE CBC W/AUTO DIFF WBC CPT-4: 13291 10/07/2013 CHORIONIC GONADOTROPIN TEST CPT-4: 59879 10/07/2013 URINE TEST CPT-4: 92589 09/15/2013 URINALYSIS NONAUTO W/O SCOPE CPT-4: 60459 06/24/2013 URINE CULTURE/ COLONY COUNT CPT-4: 42849 06/24/2013 URINE TEST CPT-4: 12191 09/08/2010 URINALYSIS NONAUTO W/O SCOPE CPT-4: 80816 07/24/2010 URINE CULTURE/ COLONY COUNT CPT-4: 90939 07/24/2010 DESTRUCT PREMALG LESION (Cryosurgery) CPT-4: 69064 DESTRUCT PREMALG LES 2-14 CPT-4: 61061 03/08/2010 Vital Signs Date Vital 11/16/2019 Blood Pressure 1: 119/75 Code: 8480-6 BMI: 24.4 Code: 40274-7 Heart Rate 1: 112 bpm Height: 5'9" Respiratory Rate: 15 bpm SpO2: 98% Tempera ture: 36.8 (C) / 98.2 (F) Weight: 165 lbs 07/07/2019 Blood Pressure 1: 126/82 Code: 8480-6 Heart Rate 1: 100 bpm SpO2: 99% Temperature: 36.8 (C) / 98.2 (F) 06/05/2019 Blood Pressure 1: 131/82 Code: 8480-6 BMI: 26.3 Code: 04130-3 Heart Rate 1: 109 bpm Height: 5'9" Respiratory Rate: 16 bpm SpO2: 99% Tempera ture: 36.7 (C) / 98.1 (F) Weight: 178 lbs 03/16/2019 Blood Pressure 1: 132/86 Code: 8480-6 Heart Rate 1: 73 bpm SpO2: 99% Temperature: 36.6 (C) / 97.9 (F) Weight: 158 lbs 03/03/2018 Blood Pressure 1: 120/88 Code: 8480-6 BMI: 23.9 Code: 53981-9 Heart Rate 1: 81 bpm Height: 5'9" Respiratory Rate: 18 bpm SpO2: 99% Tempera ture: 36.1 (C) / 97.0 (F) Weight: 162 lbs 10/18/2016 Blood Pressure 1: 108/78 Code: 8480-6 BMI: 22.6 Code: 83117-7 Heart Rate 1: 100 bpm Height: 5'9" Respiratory Rate: 20 bpm SpO2: 98% Tempera ture: 37.1 (C) / 98.8 (F) Weight: 153 lbs 08/08/2016 Blood Pressure 1: 114/78 Code: 8480-6 Heart Rate 1: 102 bpm Respiratory Rate: 20 bpm SpO2: 98% Temperature: 36.4 (C) / 97.6 (F) We ight: 152 lbs 05/15/2016 Blood Pressure 1: 124/80 Code: 8480-6 BMI: 23.2 Code: 61373-7 Heart Rate 1: 100 bpm Height: 5'9" Respiratory Rate: 20 bpm Temperature: 37 .0 (C) / 98.6 (F) Weight: 157 lbs 12/23/2015 Blood Pressure 1: 124/78 Code: 8480-6 BMI: 23.0 Code: 49836-3 Heart Rate 1: 92 bpm Height: 5'9" Respiratory Rate: 20 bpm SpO2: 97% Tempera ture: 36.9 (C) / 98.5 (F) Weight: 156 lbs 01/26/2015 Blood Pressure 1: 118/78 Code: 8480-6 BMI: 21.3 Code: 68278-3 Heart Rate 1: 100 bpm Height: 5'9" Respiratory Rate: 20 bpm SpO2: 97% Tempera ture: 36.6 (C) / 97.8 (F) Weight: 144 lbs 06/16/2014 Blood Pressure 1: 118/78 Code: 8480-6 BMI: 23.5 Code: 56531-6 Heart Rate 1: 78 bpm Height: 5'9" Respiratory Rate: 18 bpm Temperature: 36 .1 (C) / 97.0 (F) Weight: 159 lbs 01/28/2014 Blood Pressure 1: 124/78 Code: 8480-6 BMI: 23.2 Code: 76124-0 Heart Rate 1: 88 bpm Height: 5'9" Respiratory Rate: 22 bpm Temperature: 36 .1 (C) / 97.0 (F) Weight: 157 lbs 12/10/2013 Blood Pressure 1: 124/70 Code: 8480-6 BMI: 23.0 Code: 02806-6 Heart Rate 1: 82 bpm Height: 5'9" Respiratory Rate: 20 bpm Temperature: 36 .2 (C) / 97.2 (F) Weight: 156 lbs 10/20/2013 Blood Pressure 1: 118/82 Code: 8480-6 Heart Rate 1: 84 bpm Respiratory Rate: 22 bpm Temperature: 36.5 (C) / 97.7 (F) Weight: 150 lbs 10/07/2013 Blood Pressure 1: 120/80 Code: 8480-6 BMI: 22.2 Code: 50002-6 Heart Rate 1: 68 bpm Height: 5'9" Respiratory Rate: 22 bpm Temperature: 36 .2 (C) / 97.2 (F) Weight: 150 lbs 09/15/2013 Blood Pressure 1: 118/68 Code: 8480-6 BMI: 22.0 Code: 74618-3 Heart Rate 1: 78 bpm Height: 5'9" Respiratory Rate: 20 bpm Temperature: 36 .1 (C) / 97.0 (F) Weight: 149 lbs 06/24/2013 Blood Pressure 1: 112/74 Code: 8480-6 Heart Rate 1: 74 bpm Respiratory Rate: 20 bpm Temperature: 36.6 (C) / 97.9 (F) Weight: 150 lbs 03/05/2013 Blood Pressure 1: 126/88 Code: 8480-6 BMI: 23.5 Code: 88108-0 Heart Rate 1: 80 bpm Height: 5'9" Respiratory Rate: 20 bpm Temperature: 36 .6 (C) / 97.9 (F) Weight: 159 lbs 02/09/2013 Blood Pressure 1: 110/68 Code: 8480-6 BMI: 21.9 Code: 76630-6 Heart Rate 1: 74 bpm Height: 5'9" Respiratory Rate: 22 bpm Temperature: 36 .8 (C) / 98.2 (F) Weight: 148 lbs 09/08/2010 Blood Pressure 1: 124/90 Code: 8480-6 BMI: 21.4 Code: 98778-0 Height: 5'10" Temperature: 36.4 (C) / 97.6 [...] EST Diagnosis: Irregular menstruation, unspecified[ICD10: N92.6] Josefa ATLAMANTES [facility] CPT-4: 80077 11/19/2019 ([id number]) PREV VISIT EST AGE 18-39 Diagnosis: Encounter for gynecological examination (general) (routine) with abnormal findings[ICD10: Z01.411] Diagnosis: Encounter for general adult medical examination without abnormal findings[ICD10: Z00.00] Diagnosis: Vaginitis[ICD10: N76.0] Diagnosis: Left breast mass[ICD10: N63.20] Diagnosis: Dense breast tissue[ICD10: R92.2] Diagnosis: Bilateral lower extremity edema[ICD10: R60.0] Diagnosis: control counseling[ICD10: Z30.09] Keyanna Mejía CHANNING NELIDAADAM SergioMaria Teresa [facility] CPT-4: 06793 11/16/2019 ([id number]) OFFICE/OUTPATIENT VISIT EST Diagnosis: Urethritis[ICD10: N34.2] Diagnosis: History of renal stone[ICD10: Z87.442] Josefa BRIAN SergioMaria Teresa [facility] CPT-4: 58267 07/07/2019 ([id number]) NURSE/OUTPATIENT VISIT EST Diagnosis: Urinary tract infection[ICD10: N39.0] Josefa DE SOUZA SergioMaria Teresa [facility] CPT-4: 24618 06/15/2019 ([id number]) OFFICE/OUTPATIENT VISIT EST Diagnosis: Dysuria[ICD10: R30.0] Diagnosis: Pelvic pain in female[ICD10: R10.2] Keyanna STRANGE KATTY SergioMaria Teresa [facility] CPT-4: 16427 06/05/2019 ([id number]) OFFICE/OUTPATIENT VISIT EST Diagnosis: Left wrist pain[ICD10: M25.532] Diagnosis: Swelling of left upper extremity[ICD10: M79.89] Keyanna Mejía JOSEFA SergioMaria Teresa [facility] CPT-4: 33682 03/16/2019 ([id number]) NURSE/OUTPATIENT VISIT EST Diagnosis: Urinary tract infection[ICD10: N39.0] Josefa DE SOUZA SergioMaria Teresa [facility] CPT-4: 11510 03/02/2019 ([id number]) NURSE/OUTPATIENT VISIT EST Diagnosis: Irregular menstruation, unspecified[ICD10: N92.6] Diagnosis: Urinary tract infection[ICD10: N39.0] Josefa DE SOUZA SergioMaria Teresa [facility] CPT-4: 52385 02/16/2019 ([id number]) NURSE/OUTPATIENT VISIT EST Diagnosis: Irregular menstruation, unspecified[ICD10: N92.6] Josefa TALAMANTES DO [facility] CPT-4: 35207 05/21/2018 ([id number]) OFFICE/OUTPATIENT VISIT EST Diagnosis: Irregular menstruation, unspecified[ICD10: N92.6] Diagnosis: Diseases of lips[ICD10: K13.0] Diagnosis: 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] Keyanna TALAMANTES DO [facility] CPT-4: 48860 03/03/2018 ([id number]) NURSE/OUTPATIENT VISIT EST Diagnosis: Irregular menstruation, unspecified[ICD10: N92.6] Josefa TALAMANTES [facility] CPT-4: 42942 11/26/2017 ([id number]) OFFICE/OUTPATIENT VISIT EST Diagnosis: Irregular menstruation, unspecified[ICD10: N92.6] Josefa TALAMANTES [facility] CPT-4: 81909 08/27/2017 ([id number]) OFFICE/OUTPATIENT VISIT EST Diagnosis: Dysuria[ICD10: R30.0] Diagnosis: Irregular menstruation, unspecified[ICD10: N92.6] Josefa TALAMANTES [facility] CPT-4: 44635 06/06/2017 ([id number]) OFFICE/OUTPATIENT VISIT EST Diagnosis: Irregular menstruation, unspecified[ICD10: N92.6] Josefa TALAMANTES [facility] CPT-4: 16637 01/04/2017 ([id number]) PREV VISIT EST AGE 18-39 Diagnosis: Encounter for general adult medical examination without abnormal findings[ICD10: Z00.00] Diagnosis: Encounter for gynecological examination (general) (routine) without abnormal findings[ICD10: Z01.419] Diagnosis: Gastro-esophageal reflux disease without esophagitis[ICD10: K21.9] Diagnosis: Dysphagia, pharyngeal phase[ICD10: R13.13] Josefa TALAMANTES [facility] CPT-4: 92069 10/18/2016 ([id number]) OFFICE/OUTPATIENT VISIT EST Diagnosis: Irregular menstruation, unspecified[ICD10: N92.6] Josefa TALAMANTES [facility] CPT-4: 39543 10/12/2016 ([id number]) OFFICE/OUTPATIENT VISIT EST Diagnosis: Fever, unspecified[ICD10: R50.9] Diagnosis: Influenza due to identified novel influenza A virus with other respiratory manifestations[ICD10: J09.X2] Catrina TALAMANTES DO [facility] CPT-4: 80209 08/08/2016 ([id number]) OFFICE/OUTPATIENT VISIT EST Diagnosis: Irregular menstruation, unspecified[ICD10: N92.6] Josefa TALAMANTES [facility] CPT-4: 21395 07/25/2016 ([id number]) OFFICE/OUTPATIENT VISIT EST Diagnosis: Right upper quadrant pain[ICD10: R10.11] Diagnosis: Unspecified abdominal pain[ICD10: R10.9] Joesfa TALAMANTES DO [facility] CPT-4: 19908 05/15/2016 ([id number]) OFFICE/OUTPATIENT VISIT EST Diagnosis: Irregular menstruation, unspecified[ICD10: N92.6] Josefa TALAMANTES DO [facility] CPT-4: 53353 05/03/2016 ([id number]) OFFICE/OUTPATIENT VISIT EST Diagnosis: Irregular menstruation, unspecified[ICD10: N92.6] Josefa TALAMANTES DO [facility] CPT-4: 12270 02/20/2016 OFFICE/OUTPATIENT VISIT EST Diagnosis: Cutaneous abscess of buttock[ICD10: L02.31] Kitty Caldera JOSEFA TAL[facility]ANT[facility] CPT-4: 54409 12/23/2015 ([id number]) OFFICE/OUTPATIENT VISIT EST Diagnosis: Irregular menstruation, unspecified[ICD10: N92.6] Josefa TALAMANTES [facility] CPT-4: 49665 11/07/2015 ([id number]) OFFICE/OUTPATIENT VISIT EST Diagnosis: Irregular menstruation, unspecified[ICD10: N92.6] Josefa TALAMANTES [facility] CPT-4: 43044 08/01/2015 ([id number]) OFFICE/OUTPATIENT VISIT EST Diagnosis: Irregular menstruation, unspecified[ICD10: N92.6] Josefa TALAMANTES DO [facility] CPT-4: 85586 05/11/2015 ([id number]) OFFICE/OUTPATIENT VISIT EST Diagnosis: Irregular menstruation, unspecified[ICD10: N92.6] Josefa TALAMANTES [facility] CPT-4: 22760 02/16/2015 OFFICE/OUTPATIENT VISIT EST Diagnosis: SINUSITIS, ACUTE[ICD9: 461.9] Malgorzata TALAMANTES DO [facility] CPT-4: 34701 01/26/2015 ([id number]) OFFICE/OUTPATIENT VISIT EST Diagnosis: IRREGULAR MENSTRUATION[ICD9: 626.4] Josefa TALAMANTES [facility] CPT-4: 29843 11/29/2014 ([id number]) OFFICE/OUTPATIENT VISIT EST Diagnosis: IRREGULAR MENSTRUATION[ICD9: 626.4] Josefa TALAMANTES DO [facility] CPT-4: 09274 09/09/2014 ([id number]) OFFICE/OUTPATIENT VISIT EST Diagnosis: IRREGULAR MENSTRUATION[ICD9: 626.4] Diagnosis: General counseling and advice on contraceptive management[ICD9: V25.09] Diagnosis: Anxiety and depression[ICD9: 300.4] Malgorzata TALAMANTES DO [facility] CPT-4: 38318 06/16/2014 OFFICE/OUTPATIENT VISIT EST Diagnosis: Right upper quadrant pain[ICD9: 789.01] Malgorzata TALAMANTES DO [facility] CPT-4: 63343 01/28/2014 OFFICE/OUTPATIENT VISIT EST Diagnosis: Right upper quadrant pain[ICD9: 789.01] Malgorzata TALAMANTES DO [facility] CPT-4: 73459 12/10/2013 OFFICE/OUTPATIENT VISIT EST Diagnosis: Anxiety and depression[ICD9: 300.4] Malgorzata ALANIZ SMaria Teresa TALAMANTES DO [facility] CPT-4: 59182 10/20/2013 OFFICE/OUTPATIENT VISIT EST Diagnosis: Menorrhagia[ICD9: 626.2] Malgorzata CULVER [facility] CPT-4: 91516 10/07/2013 OFFICE/OUTPATIENT VISIT EST Diagnosis: IRREGULAR MENSTRUATION[ICD9: 626.4] Malgorzata TALAMANTES DO [facility] CPT-4: 52302 09/15/2013 OFFICE/OUTPATIENT VISIT EST Diagnosis: HEMATURIA NOS[ICD9: 599.70] Diagnosis: Abdominal discomfort in right upper quadrant[ICD9: 789.01] Malgorzata TALAMANTES DO [facility] CPT-4: 42271 06/24/2013 ([id number]) OFFICE/OUTPATIENT VISIT EST Diagnosis: ABDOMINAL PAIN[ICD9: 789.00] Diagnosis: GERD[ICD9: 530.81] Josefa Thadgaetanoflaco TALAMANTES DO [facility] CPT-4: 11138 03/05/2013 OFFICE/OUTPATIENT VISIT EST Diagnosis: General counseling and advice on contraceptive management[ICD9: V25.09] Diagnosis: IRREGULAR MENSTRUATION[ICD9: 626.4] Malgorzata TALAMANTES DO [facility] CPT-4: 80468 02/09/2013 ([id number]) OFFICE/OUTPATIENT VISIT EST Justine TALAMANTES DO [facility] CPT-4: 18077 09/08/2010 ([id number]) OFFICE/OUTPATIENT VISIT EST Justine TALAMANTES DO [facility] CPT-4: 59713 07/24/2010 Plan of Care Planned Activity Notes Codes Status Date Appointment: [phone] [id number] [facility] 11/19/2019 Care Plan: Belle BOSE ADD ON TO LABS SENT ON 11/16/2019 Pending 11/17/2019 Visit Diagnosis Plan: Encounter for gyne cological examination (general) (routine) with abnormal findings Discussion: fasting labs to be completed this week at [facility]. order written and given to patient. [...] ICD-10 : R60.0 11/16/2019 Appointment: Keyanna Mejía [address] [place] [address] Annual Well Visit 11/16/2019 Visit Diagnosis Plan: Urethritis Discussion: Diflucan and topical nystatin ICD-9 : 597.80 ICD-10 : N34.2 07/07/2019 Visit Diagnosis Plan: History of renal stone Discussio n: Flomax Push water If not improving within 48hrs or if worsening then will need CT scan to assess for stone ICD-9 : V13.01 ICD-10 : Z87.442 07/07/2019 Appointment: Josefa Talamantes WPtel: [address] [place] [address] ACUTE ILLNESS 07/07/2019 Patient Education: nystatin- [employer] Coupon [id number] [email or web address]/samplemd/resources/getResource/61/[email or web address]-10y7-2g Completed 07/07/2019 Appointment: Josefa Talamantes WPtel: [address] [place] [address] UA 06/15/2019 Visit Diagnosis Plan: Dysuria Discussion: due to recur rent pain and worsening symptoms, rocephin 1 gm given in office. will send urine off for culture and call on saturday if any changes needed. instructed to push fluids through the w eekend and go to urgent care with any worsening. ICD-9 : 788.1 ICD-10 : R30.0 06/05/2019 Appointment: Keyanna Mejía [address] [place] [address] FOLLOW UP 06/05/2019 Visit Diagnosis Plan: Left [...] ICD-10 : M25.532 03/16/2019 Appointment: Keyanna Mejía [address] [place] [address] Hospital Follow Up 03/16/2019 Appointment: Josefa Talamantes WPtel: [address] [place], [place] [id number] [place] UA 03/02/2019 Appointment: Josefa Talamantes WPtel: [address] [facility] [place] INJECTION 02/16/2019 Appointment: Josefa Talamantes WPtel: [address] [place], [place] [phone] [place] INJECTION 05/21/2018 Visit Diagnosis Plan: Nontoxic [...] performed in office and negative. patient to brain picker depo prescription and bring back to [...] ICD-10 : K13.0 03/03/2018 Appointment: Keyanna Mejía [address] [place] [address] ACUTE ILLNESS 03/03/2018 Patient Education: Patient Medication Summary Completed 03/03/2018 Care Plan: US EXAM OF HEAD AND NECK thyroid LOIN C : 63372-8 Pending 03/03/2018 Appointment: Josefa Talamantes WPtel: [address] [place] [address] [place] CANCELED 02/27/2018 Appointment: Josefa Talamantes WPtel: [address] [place] [address] [place] INJECTION 11/26/2017 Patient Education: Patient Medication Summary Completed 11/26/2017 Appointment: Josefa Talamantes WPtel: [address] [place] [address] [place] INJECTION 08/27/2017 Patient Education: Patient Medication Summary Completed 08/27/2017 Appointment: Josefa Talamantes WPtel: [address] [place] [address] [place] INJECTION 06/06/2017 Patient Education: Patient Medication Summary Completed 06/06/2017 Appointment: Josefa Talamantes WPtel: [address] [place] [address] [place] INJECTION 01/04/2017 Patient Education: Patient Medication Summary Completed 01/04/2017 Appointment: Josefa Talamantes WPtel: [address] [place], [place] [phone] [place] 11/19 lm `sl 11/21 lm `sl NO SHOW 11/22/19 17 Patient Education: Patient Medication Summary Completed 10/22/2016 Care Plan: US EXAM OF HEAD AND NECK Thyroid Ultrasound LOIN C : 85393-2 Pending 10/22/2016 Visit Diagnosis Plan: Gastro-esophageal reflux [...] : R13.13 10/18/2016 Appointment: Josefa Talamantes WPtel: [address] [place], [place] [phone] [place] 10/17 lm ` Annual Well Visit 10/18/2016 Patient Education: Patient Medication Summary Completed 10/18/2016 Appointment: Josefa Talamantes WPtel: [address] [place], [place] [phone] [place] INJECTION 10/12/2016 Patient Education: Patient Medication Summary Completed 10/12/2016 Visit Diagnosis Plan: Influenza due to i dentified novel influenza A virus with other respiratory manifestations Discussion: Flu A positive Rx as above Supportive care otherwise Contagious precautions discussed Notify kids' provider of exposure for their instructions ICD-9 : 488.02 ICD-10 : J09.X2 08/08/2016 Appointment: Catrina Bran [address] [place], [place] [id number] ACUTE ILLNESS 08/08/2016 Patient Education: Patient Medication Summary Completed 08/08/2016 Appointment: Josefa Talamantes WPtel: [address] [place], [place] [phone] [place] INJECTION 07/25/2016 Patient Education: Patient Medication Summary Completed 07/25/2016 Visit Plan: Finish abx and then recultur e 48hrs after completion Add levsin and zorvolex 05/15/2016 Appointment: Josefa Talamantes WPtel: [address] [place], [place] [id number] [place] 1/ lm `sl 05/15 confirmed~ Hospital Follow Up 0 05/15/2016 Patient Education: Patient Medication Summary Completed 05/15/2016 [facility] [facility] [facility]09 admitted into the hospital last night~ ACUTE ILLNESS 05/09/2016 Appointment: Josefa Talamantes WPtel: [address] [place], [place] [id number] [place] INJECTION 05/03/2016 Patient Education: Patient Medication Summary Completed 05/03/2016 Appointment: Josefa Talamantes WPtel: [address] [place], [place] [id number] [place] INJECTION 02/20/2016 Patient Education: Patient Medication Summary Completed 02/20/2016 Visit Plan: ERx for Bactrim and Bactroba n Called to [facility] 50mg 1 po q 4-6 hours prn pain #20 Warm moist heat to area qid Watch for s/s of worsening, go to over weekend Discussed SE of meds including s/s of SJS which would require an ER visit C&S obtained 12/23/2015 Appointment: Kitty Caldera WPtel: [address] [place], [place] [id number] ACUTE ILLNESS 12/23/2015 Patient Education: Patient Medication Summary Completed 12/23/2015 Appointment: Josefa Talamantes WPtel: [address] [place], [place] [id number] [place] INJECTION 11/07/2015 Patient Education: Patient Medication Summary Completed 11/07/2015 Appointment: Josefa Talamantes WPtel: [address] [place], [place] [id number] [place] INJECTION 08/01/2015 Patient Education: Patient Medication Summary Completed 08/01/2015 Appointment: Josefa Talamantes WPtel: [address] [place], [place] [id number] [place] INJECTION 05/11/2015 Patient Education: Patient Medication Summary Completed 05/11/2015 Appointment: Malgorzata Islas WPtel: [address] [place], [place] [id number] [place] PAP 04/05/2015 Appointment: Josefa Talamantes WPtel: [address] [place], [place] [id number] [place] INJECTION 02/16/2015 Patient Education: Patient Medication Summary Completed 02/16/2015 Visit Plan: Daily nasal saline rinses Fl onase nasal spray and daily Zyrtec Medrol dose pack Z-jhonathan as directed 01/26/2015 Appointment: Malgorzata Islas WPtel: [address] [place], [place] [phone] ACUTE ILLNESS 01/26/2015 Patient Education: Patient Medication Summary Completed 01/26/2015 Appointment: Josefa Talamantes WPtel: [address] [place], [place] [phone] [place] INJECTION 11/29/2014 Patient Education: Patient Medication Summary Completed 11/29/2014 Appointment: Josefa Talamantes WPtel: [address] [place], [place] [phone] [place] INJECTION 09/09/2014 Patient Education: Patient Medication Summary Completed 09/09/2014 Appointment: Malgorzata Islas WPtel: [address] [place], [place] [phone] FOLLOW UP 06/16/2014 Patient Education: Patient Medication Summary Completed 06/16/2014 Appointment: Malgorzata Islas WPtel: [address] [place] [id number] 06/02/14 appointment scheduled 06/03/14 no showed PAP 06/03/2014 Appointment: Malgorzata Islas WPtel: [address] [place] [id number] [place] FOLLOW UP 01/28/2014 Patient Education: Patient Medication Summary Completed 01/28/2014 Care Plan: [place] : [address]-9 Ordered 01/28/2014 Care Plan: AMYLASE Pending 4 Appointment: Malgorzata Islas WPtel: [address] [place], [place] [phone] [place] FOLLOW UP 12/10/2013 Patient Education: Patient Medication Summary Completed 12/10/2013 Appointment: Malgorzata Islas WPtel: [address] [place], [place] [phone] 11/11 vm 11/12 No Show FOLLOW UP 11/12/2013 Appointment: Malgorzata Islas WPtel: [address] [place] [address] FOLLOW UP 10/20/2013 Patient Education: Patient Medication Summary Completed 10/20/2013 Visit Plan: Quantitative Hcg and CBC tod ay. Transvaginal/Transabdominal sonogram stat Discussed with ELECTRONICS SUPERVISOR and [facility] 343 so will recheck in 1week as long as not worsening 10/07/2013 Appointment: Malgorzata Islas WPtel: [address] [place] [address] ACUTE ILLNESS 10/07/2013 Patient Education: Patient Medication Summary Completed 10/07/2013 Appointment: Malgorzata Islas WPtel: [address] [place] [address] ACUTE ILLNESS 09/15/2013 Patient Education: Patient Medication Summary Completed 09/15/2013 Appointment: Malgorzata Islas WPtel: [address] [place], [place] [phone] ACUTE ILLNESS 06/24/2013 Patient Education: Patient Medication Summary Completed 06/24/2013 Appointment: Malgorzata Islas WPtel: [address] [place] [address] [place] appt was scheduled today then patient no showed the visit ACUTE ILLNESS 05/21/2013 Visit Plan: Check CMP, CBC, UA CT scan o f abdomen Omeprazole 03/05/2013 Appointment: Josefa Talamantes WPtel: [address] [place], [place] [phone] ACUTE ILLNESS 03/05/2013 Appointment: Josefa Talamantes WPtel: [address] [place] [address] 03/02 canceled, wrong patient FOLLOW UP Patient Education: Patient Medication Summary Completed 03/05/2013 Appointment: Malgorzata Islas WPtel: [address] [place] [address] ACUTE ILLNESS 02/09/2013 Patient Education: Patient Medication Summary Completed 02/09/2013 Appointment: Justine Ortega WPtel: [address] [place] [address] ACUTE ILLNESS 09/08/2010 Patient Education: Patient Medication Summary Completed 09/08/2010 Appointment: Justine Ortega WPtel: [address] [place] [address] [place] PAP 08/08/2010 Appointment: Justine Ortega WPtel: [address] [place] [address] ACUTE ILLNESS 07/24/2010 Patient Education: Patient Medication Summary Completed 07/24/2010 Visit Plan: All warts shaved with 11-rekha de scalpel and then cryotherapy x3 Will followup with DNCB treatment 03/08/2010 Appointment: Josefa Talamantes WPtel: [address] [place] [address] ACUTE ILLNESS 03/08/2010 Patient Education: Patient Medication Summary Completed 03/08/2010 Appointment: Josefa Talamantes WPtel: [address] [place] [address] [place] PAP 09/14/2009 Referral: Roney Galloway WPtel: [address] [address] [place] Referral Initiated Referral: Brian Floyd [facility]el[facility] [address] [id number] [facility] Referral Initiated Referral: Referral Initiated Instructions [...] CBC today. Transvaginal/Transabdominal sonogram stat Discussed with ELECTRONICS SUPERVISOR and [facility] 343 so will recheck [...]
--- OUTSIDE RECORDS SUMMARY | 2019-12-11 21:59 | XMS REPORT | CCD ---
Author Author Brenda Talamantes D.O. Organization JOSEFA TALAMANTES DO [facility] Address [address] [place] [address] Phone Care Team Providers Care Preparation Operator Name Role Phone Josefa Talamantes D.O., PP Unavailable CCM Unavailable Summary Purpose Interface Exchange Insurance Providers Payer name Policy type / Coverage type Covered green party ID Effective Begin Date Effective End Date [facility] Commercial Insurance [id number] Unknown Family History Family History data not found Social History Social History Element Codes Description Effective Dates Tobacco history SNOMED CT: 871906042 Unknown if ever smoked 01/12 Allergies, Adverse Reactions, Alerts Substance Reaction Codes Entered Date Inactivated Date Status * NO KNOWN FOOD ALLERGIES Unknown 03/08/2010 No Inactiv e Date Active * NO KNOWN ENVIRONMENTAL ALLERGIES Unknown 03/08/2010 N o Inactive Date Active Problems Condition Codes Effective Dates Condition Status Vaginitis ICD-9: 616.10 ICD-10: N76.0 11/16/2019 Active [...] extremity ICD-9: 729.81 ICD-10: M79.89 03/16/2019 Active Irregular menstruation, unspecified ICD-9: 626.2 ICD-10: N92.6 11/26/2017 Active Diseases of lips ICD-9: 528.5 ICD-10: [...] Fill Instructions metronidazole 500 mg tablet RxNorm: 667803 1 Tablet(s) Oral two times a day 11/17/2019 11/24/2019 Active metronidazole 500 mg tablet RxNorm: 390957 1 Tablet(s) Oral two times a day 11/17/2019 11/16/2019 Inactive Depo-Provera 150 mg/mL intramuscular suspension RxNorm: 1000 128 1 Application Intramuscular 11/16/2019 No Stop Date Active Diflucan 100 mg tablet RxNorm: 809150 1 Tablet(s) Oral QD 07/07/2019 07/14/2019 Inactive Flomax 0.4 mg capsule RxNorm: 649761 1 Capsule(s) Oral QPM for kidney stone 07/07/2019 08/06/2019 Inactive nystatin 100,000 unit/gram topical cream RxNorm: 659449 Application Topical two times a day to periurethral area 07/07/2019 11/16/2019 Inactive Bactrim DS 800 mg-160 mg tablet RxNorm: 588019 1 Tablet(s) Oral two times a day 06/08/2019 06/13/2019 Inactive Bactrim DS 800 mg-160 mg tablet RxNorm: 321442 1 Tablet(s) Oral two times a day 06/08/2019 06/07/2019 Inactive ibuprofen 800 mg tablet RxNorm: 557322 1 Tablet(s) Oral Q8H as needed 03/16/2019 06/05/2019 Inactive Cipro 500 mg tablet RxNorm: 095427 1 Tablet(s) Oral two times a day 03/04/2019 03/11/2019 Inactive Cipro 500 mg tablet RxNorm: 382086 1 Tablet(s) Oral two times a day 03/04/2019 03/03/2019 Inactive Macrobid 100 mg capsule RxNorm: 381571 1 Capsule(s) Oral two ti mes a day 02/16/2019 02/15/2019 Inactive Macrobid 100 mg capsule RxNorm: 898349 1 Capsule(s) Oral two ti mes a [...] 11/24/2017 Inactive Pepcid 40 mg tablet RxNorm: 110027 1 Tablet(s) PO QD 10/18/201603/02 Inactive Depo-Provera 150 mg/mL intramuscular suspension RxNorm: 1000 128 Milliliter(s) 1 Milliliter(s) IM 10/10/2016 06/04/2017 Inactive Tamiflu 75 mg capsule RxNorm: 057681 1 Capsule(s) PO BID 08/08/2016 0 08/12/2016 Inactive Levsin 0.125 mg tablet RxNorm: 9076196 1 Tablet(s) PO TID for fl ank pain 05/15/2016 10/17/2016 Inactive Bactrim DS 800 mg-160 mg tablet RxNorm: 514871 1 Tablet(s) PO BID 0 12/23/2015 01/01/2016 Inactive mupirocin 2 % topical ointment RxNorm: 383177 Application TOP TID 0 12/23/2015 12/29/2015 Inactive Depo-Provera 150 mg/mL intramuscular suspension RxNorm: 1000 128 Milliliter(s) 1 Milliliter(s) IM 11/08/2015 10/09/2016 Inactive Xanax 0.25 mg tablet RxNorm: 928454 TAKE ONE-HALF TO ON E TABLET BY MOUTH NEEDED FOR ANXIETY 04/11/2015 05/10/2015 Inactive Generic For:X ANAX 0.25 MG TABLET 04/11/2015 2:54:57 PM Depo-Provera 150 mg/mL intramuscular suspension RxNorm: 1000 128 Milliliter(s) 1 Milliliter(s) IM 02/15/2015 11/07/2015 Inactive azithromycin 250 mg tablet RxNorm: 349230 2 Tablet(s) P O today, then one tablet on days 2 - 5 01/26/2015 12/22/2015 Inactive Medrol (Jhonathan) 4 mg tablets in a dose pack RxNorm: 479778 Tablet(s) P O 01/26/2015 12/22/2015 Inactive Depo-Provera 150 mg/mL intramuscular suspension RxNorm: 1000 128 1 Milliliter(s) IM 09/06/2014 02/15/2015 Inactive Xanax 0.25 mg tablet RxNorm: 039518 1/2 - 1 Tablet(s) PO as nee ded for anxiety 06/16/2014 04/12/2015 Inactive Zoloft 50 mg tablet RxNorm: 915446 1 Tablet(s) PO QD 06/16/201412/21 Inactive Flexeril [...] 2014 Inactive Xanax 0.25 mg tablet RxNorm: 603531 1/2 - 1 Tablet(s) PO as nee ded for anxiety 01/28/2014 06/15/2014 Inactive naproxen 500 mg tablet RxNorm: 364022 1 Tablet(s) PO BID 12/10/2013 0 01/08/2014 Inactive Zoloft 50 mg tablet RxNorm: 649769 1 Tablet(s) PO QD 12/10/201304/08 Inactive Xanax 0.25 mg tablet RxNorm: 296231 1/2 - 1 Tablet(s) PO as nee ded for anxiety 12/10/2013 01/27/2014 Inactive Xanax 0.25 mg tablet RxNorm: 025884 1 Tablet(s) PO Q8H 10/20/2013 Inactive Zoloft 50 mg tablet RxNorm: 322862 1/2 Tablet(s) PO x 6 days then on1 tablet daily 10/20/2013 11/18/2013 Inactive Loestrin Fe 06/01 (28) 1 mg-20 mcg tablet RxNorm: 3944390 1 Table t(s) PO QD 10/20/2013 05/03/2014 Inactive phenazopyridine 100 mg tablet RxNorm: 3540238 1 Tablet(s) PO Q8H 06/26/2013 Inactive Macrobid 100 mg capsule RxNorm: 275043 1 Capsule(s) PO BID 06/25/19 14 07/04/2013 Inactive phenazopyridine 100 mg tablet RxNorm: 0848338 1 Tablet(s) PO Q8H 06/24/2013 Inactive Macrobid 100 mg capsule RxNorm: 478707 1 Capsule(s) PO BID 07/25/1908/02/2010 Inactive Apri 0.15 mg-30 mcg tablet RxNorm: 380342 1 Tablet(s) PO QD As directed. No Start Date 06/23/2013 Inactive omeprazole 40 mg capsule,delayed release RxNorm: 222049 1 Capsule(s) PO QD for stomach No Start Date 06/23/2013 Inactive naproxen 500 mg tablet RxNorm: 926396 1 Tablet(s) PO BID No Start D ate 06/15/2014 Inactive hydrocodone 10 mg-acetaminophen 325 mg tablet RxNorm: 531955 Tablet(s) PO as needed for pain No Start Date 12/22/2015 Inactive Zoloft 50 mg tablet RxNorm: 819858 1 Tablet(s) PO QD No Start Date Inactive hydrocodone 5 mg-acetaminophen 325 mg tablet RxNorm: 343084 1 Tablet(s) PO QID as needed for pain No Start Date 09/14/2013 Inactive Medication Administered No Medication Administered data Immunizations No Immunization data Results Observation Observation Code Item Item Code Result Date S ervice Location V PROF SWB [id number] Whiff TNP:Duplicate Order 11/17/19 20 Unknown V PROF SWB [id number] WBC Vaginal TNP:Duplicate Order 2019 Unknown V PROF SWB [id number] [facility] Lactobac TNP:Duplicate Order 2019 Unknown V PROF SWB [id number] Clue Cells TNP:Duplicate Order 020 Unknown V PROF SWB [id number] [facility] Curved GNR TNP:Duplicate Order 11/2019 Unknown V PROF SWB [id number] Yeast Vaginal TNP:Duplicate Order 11/2019 Unknown V PROF SWB [id number] [facility] SM GVB TNP:Duplicate Order 11/17/19 20 Unknown V PROF SWB [id number] [facility] Swb Trich Ag TNP:Duplicate Order Unknown V PROF SWB [id number] [facility] BV Stain TNP:Duplicate Order 2019 Unknown V PROF SWB [id number] [facility] Interp TNP:Duplicate Order 11/17/19 20 Unknown V PROF SWB [id number] Conf BV Stain TNP:Duplicate Order 11/2019 Unknown V PROF SWB [id number] Whiff Positive 11/17/2019 Unknown V PROF SWB [id number] WBC Vaginal Few 11/17/2019 Unknow n V PROF SWB [id number] Clue Cells >20% 11/17/2019 Unknown V PROF SWB [id number] Yeast Vaginal None 11/17/2019 Unkn own V PROF SWB [id number] [facility] Swb Trich Ag Negative 11/17/2019 Un known V PROF SWB [id number] [facility] BV Stain 10 11/17/2019 Unknow n V PROF SWB [id number] [facility] Interp Results indicate Bacteria l Vaginosis Syndrome. 11/17/2019 Unknown VAG PROF [id number] PH TNP:Improper Specimen 020 Unknown VAG PROF [id number] Whiff TNP:Improper Specimen 020 Unknown VAG PROF [id number] WBC Vaginal TNP:Improper Specimen 11/15 Unknown VAG PROF [id number] [facility] Lactobac TNP:Improper Specimen 11/15 Unknown VAG PROF [id number] Clue Cells TNP:Improper Specimen 2019 Unknown VAG PROF [id number] [facility] Curved GNR TNP:Improper Specimen 10/2019 Unknown VAG PROF [id number] Yeast Vaginal TNP:Improper Specimen 10/2019 Unknown VAG PROF [id number] [facility] SM GVB TNP:Improper Specimen 020 Unknown VAG PROF [id number] Trichomonas TNP:Improper Specimen 11/15 Unknown VAG PROF [id number] [facility] BV Stain TNP:Improper Specimen 11/15 Unknown VAG PROF [id number] [facility] Intp TNP:Improper Specimen 020 Unknown VAG PROF [id number] Conf BV Stain TNP:Improper Specimen 10/2019 Unknown LIPASE 48992 LIPASE 14 IU/L 01/28/2014 Unknown COMPLETE BLOOD COUNT [id number] WBC 6.5 10e9/L 01/29/20 14 Unknown COMPLETE BLOOD COUNT [id number] RBC 4.54 10e12/L 2013 Unknown COMPLETE BLOOD COUNT [id number] HGB 12.1 g/dL 4 Unknown COMPLETE BLOOD COUNT 0300796 HCT DET 38.0 % 4 Unknown COMPLETE BLOOD COUNT [id number] MCV 83.7 fL 4 Unknown COMPLETE BLOOD COUNT [id number] MCH 26.7 pg 4 Unknown COMPLETE BLOOD COUNT [id number] MCHC 31.8 g/dL 4 Unknown COMPLETE BLOOD COUNT [id number] PLT 218 10e9/L 01/29/20 14 Unknown COMPLETE BLOOD COUNT 1432249 MPV 12.8 fL 4 Unknown COMPLETE BLOOD COUNT [id number] RACHNA % 56.5 % 4 Unknown COMPLETE BLOOD COUNT [id number] LY % 32.3 % 4 Unknown COMPLETE BLOOD COUNT [id number] MON % 8.6 % 4 Unknown COMPLETE BLOOD COUNT [id number] EOS % 2.1 % 4 Unknown COMPLETE BLOOD COUNT [id number] BASO % 0.5 % 4 Unknown COMPLETE BLOOD COUNT [id number] RDW 18.4 % 4 Unknown COMPLETE BLOOD COUNT [id number] ABS RACHNA 3.67 10e9/L 014 Unknown COMPLETE BLOOD COUNT [id number] ABS LYMPH 2.10 10e9/L 014 Unknown COMPLETE BLOOD COUNT [id number] ABS MONO 0.56 10e9/L 014 Unknown COMPLETE BLOOD COUNT [id number] ABS EOS 0.14 10e9/L 014 Unknown COMPLETE BLOOD COUNT [id number] ABS BASO 0.03 10e9/L 014 Unknown COMPLETE BLOOD COUNT [id number] RDW-SD 55.5 fL 4 Unknown COMPREHENSIVE METABOLIC 78995 AST 13 U/L 2013 Unknown COMPREHENSIVE METABOLIC 16803 ALT 7 IU/L 2013 Unknown COMPREHENSIVE METABOLIC 48312 BUN 8 MG/DL 2013 Unknown COMPREHENSIVE METABOLIC 33364 ALBUMIN 4.5 GM/DL 2013 Unknown COMPREHENSIVE METABOLIC 51048 CHLORIDE 106 MMOL/L 01/28 Unknown COMPREHENSIVE METABOLIC 02030 BILI TOT 0.4 MG/DL 2013 Unknown COMPREHENSIVE METABOLIC 40096 ALK PHOS 55 U/L 2013 Unknown COMPREHENSIVE METABOLIC 76150 SODIUM 138 MMOL/L 01/28 Unknown COMPREHENSIVE METABOLIC 60714 CREATININE 0.73 MG/DL 01/11 Unknown COMPREHENSIVE METABOLIC 59489 CALCIUM 9.9 MG/DL 2013 Unknown COMPREHENSIVE METABOLIC 73493 POTASSIUM 3.8 MMOL/L 01/28 Unknown COMPREHENSIVE METABOLIC 70208 PROT TOT 7.4 GM/DL 2013 Unknown COMPREHENSIVE METABOLIC 95201 Glucose 96 MG/DL 2013 Unknown COMPREHENSIVE METABOLIC 49911 BICARB 27 MMOL/L 2013 Unknown COMPREHENSIVE METABOLIC 80296 ANION GAP 5 MEQ/L 2013 Unknown AMYLASE 11084 AMYLASE 42 IU/L 01/28/2014 Unknown GFR CALC [id number] GFR AA >60 ML/MIN 01/28/2014 Unknown GFR CALC 1794833 GFR NON-AA >60 ML/MIN 01/28/2014 Unknown Procedures Procedure Codes Date URINE TEST CPT-4: 97256 11/16/2019 SPECIMEN HANDLING OFFICE-LAB CPT-4: 23187 11/16/2019 URINE CULTURE/ COLONY COUNT CPT-4: 26794 06/15/2019 URINALYSIS NONAUTO W/O SCOPE CPT-4: 55831 06/05/2019 CEFTRIAXONE SODIUM INJECTION CPT-4: J0696 06/05/2019 THER/PROPH/DIAG INJ SC/IM CPT-4: 67456 06/05/2019 URINE CULTURE/ COLONY COUNT CPT-4: 05443 06/05/2019 URINE CULTURE/ COLONY COUNT CPT-4: 09075 03/02/2019 THER/PROPH/DIAG INJ SC/IM CPT-4: 02065 02/16/2019 URINE CULTURE/ COLONY COUNT CPT-4: 93040 02/16/2019 URINALYSIS NONAUTO W/O SCOPE CPT-4: 83952 02/16/2019 URINE TEST CPT-4: 90218 02/16/2019 THER/PROPH/DIAG INJ SC/IM CPT-4: 35201 05/21/2018 THER/PROPH/DIAG INJ SC/IM CPT-4: 61596 11/26/2017 THER/PROPH/DIAG INJ SC/IM CPT-4: 93266 08/27/2017 THER/PROPH/DIAG INJ SC/IM CPT-4: 82957 06/06/2017 URINALYSIS NONAUTO W/O SCOPE CPT-4: 27589 06/06/2017 GC/CHLAMYDIA DNA (BD-ProbeTe) CPT-4: 34940|20894 8 URINE CULTURE/ COLONY COUNT CPT-4: 13046 06/06/2017 THER/PROPH/DIAG INJ SC/IM CPT-4: 11783 01/04/2017 SPECIMEN HANDLING OFFICE-LAB CPT-4: 02797 10/18/2016 THER/PROPH/DIAG INJ SC/IM CPT-4: 47341 10/12/2016 INFLUENZA ASSAY W/OPTIC CPT-4: 88736 08/08/2016 THER/PROPH/DIAG INJ SC/IM CPT-4: 19371 07/25/2016 THER/PROPH/DIAG INJ SC/IM CPT-4: 23299 05/03/2016 THER/PROPH/DIAG INJ SC/IM CPT-4: 68267 02/20/2016 URINE TEST CPT-4: 36566 02/20/2016 AEROBIC WOUND CULTURE & STN CPT-4: 47485 12/23/2015 THER/PROPH/DIAG INJ SC/IM CPT-4: 34960 11/07/2015 URINE TEST CPT-4: 98247 11/07/2015 THER/PROPH/DIAG INJ SC/IM CPT-4: 30179 08/01/2015 THER/PROPH/DIAG INJ SC/IM CPT-4: 30059 05/11/2015 THER/PROPH/DIAG INJ SC/IM CPT-4: 69489 02/16/2015 THER/PROPH/DIAG INJ SC/IM CPT-4: 25635 11/29/2014 THER/PROPH/DIAG INJ SC/IM CPT-4: 33607 09/09/2014 URINE TEST CPT-4: 35055 06/16/2014 THER/PROPH/DIAG INJ SC/IM CPT-4: 24852 06/16/2014 ROUTINE VENIPUNCTURE CPT-4: 62243 10/07/2013 COMPLETE CBC W/AUTO DIFF WBC CPT-4: 07876 10/07/2013 CHORIONIC GONADOTROPIN TEST CPT-4: 37316 10/07/2013 URINE TEST CPT-4: 91513 09/15/2013 URINALYSIS NONAUTO W/O SCOPE CPT-4: 52553 06/24/2013 URINE CULTURE/ COLONY COUNT CPT-4: 46997 06/24/2013 URINE TEST CPT-4: 76998 09/08/2010 URINALYSIS NONAUTO W/O SCOPE CPT-4: 25521 07/24/2010 URINE CULTURE/ COLONY COUNT CPT-4: 05014 07/24/2010 DESTRUCT PREMALG LESION (Cryosurgery) CPT-4: 28128 DESTRUCT PREMALG LES 2-14 CPT-4: 61033 03/08/2010 Vital Signs Date Vital 11/16/2019 Blood Pressure 1: 119/75 Code: 8480-6 BMI: 24.4 Code: 32886-2 Heart Rate 1: 112 bpm Height: 5'9" Respiratory Rate: 15 bpm SpO2: 98% Tempera ture: 36.8 (C) / 98.2 (F) Weight: 165 lbs 07/07/2019 Blood Pressure 1: 126/82 Code: 8480-6 Heart Rate 1: 100 bpm SpO2: 99% Temperature: 36.8 (C) / 98.2 (F) 06/05/2019 Blood Pressure 1: 131/82 Code: 8480-6 BMI: 26.3 Code: 82270-6 Heart Rate 1: 109 bpm Height: 5'9" Respiratory Rate: 16 bpm SpO2: 99% Tempera ture: 36.7 (C) / 98.1 (F) Weight: 178 lbs 03/16/2019 Blood Pressure 1: 132/86 Code: 8480-6 Heart Rate 1: 73 bpm SpO2: 99% Temperature: 36.6 (C) / 97.9 (F) Weight: 158 lbs 03/03/2018 Blood Pressure 1: 120/88 Code: 8480-6 BMI: 23.9 Code: 35582-6 Heart Rate 1: 81 bpm Height: 5'9" Respiratory Rate: 18 bpm SpO2: 99% Tempera ture: 36.1 (C) / 97.0 (F) Weight: 162 lbs 10/18/2016 Blood Pressure 1: 108/78 Code: 8480-6 BMI: 22.6 Code: 75826-8 Heart Rate 1: 100 bpm Height: 5'9" Respiratory Rate: 20 bpm SpO2: 98% Tempera ture: 37.1 (C) / 98.8 (F) Weight: 153 lbs 08/08/2016 Blood Pressure 1: 114/78 Code: 8480-6 Heart Rate 1: 102 bpm Respiratory Rate: 20 bpm SpO2: 98% Temperature: 36.4 (C) / 97.6 (F) We ight: 152 lbs 05/15/2016 Blood Pressure 1: 124/80 Code: 8480-6 BMI: 23.2 Code: 28632-3 Heart Rate 1: 100 bpm Height: 5'9" Respiratory Rate: 20 bpm Temperature: 37 .0 (C) / 98.6 (F) Weight: 157 lbs 12/23/2015 Blood Pressure 1: 124/78 Code: 8480-6 BMI: 23.0 Code: 08891-1 Heart Rate 1: 92 bpm Height: 5'9" Respiratory Rate: 20 bpm SpO2: 97% Tempera ture: 36.9 (C) / 98.5 (F) Weight: 156 lbs 01/26/2015 Blood Pressure 1: 118/78 Code: 8480-6 BMI: 21.3 Code: 07760-3 Heart Rate 1: 100 bpm Height: 5'9" Respiratory Rate: 20 bpm SpO2: 97% Tempera ture: 36.6 (C) / 97.8 (F) Weight: 144 lbs 06/16/2014 Blood Pressure 1: 118/78 Code: 8480-6 BMI: 23.5 Code: 51724-0 Heart Rate 1: 78 bpm Height: 5'9" Respiratory Rate: 18 bpm Temperature: 36 .1 (C) / 97.0 (F) Weight: 159 lbs 01/28/2014 Blood Pressure 1: 124/78 Code: 8480-6 BMI: 23.2 Code: 70685-6 Heart Rate 1: 88 bpm Height: 5'9" Respiratory Rate: 22 bpm Temperature: 36 .1 (C) / 97.0 (F) Weight: 157 lbs 12/10/2013 Blood Pressure 1: 124/70 Code: 8480-6 BMI: 23.0 Code: 95835-1 Heart Rate 1: 82 bpm Height: 5'9" Respiratory Rate: 20 bpm Temperature: 36 .2 (C) / 97.2 (F) Weight: 156 lbs 10/20/2013 Blood Pressure 1: 118/82 Code: 8480-6 Heart Rate 1: 84 bpm Respiratory Rate: 22 bpm Temperature: 36.5 (C) / 97.7 (F) Weight: 150 lbs 10/07/2013 Blood Pressure 1: 120/80 Code: 8480-6 BMI: 22.2 Code: 05086-6 Heart Rate 1: 68 bpm Height: 5'9" Respiratory Rate: 22 bpm Temperature: 36 .2 (C) / 97.2 (F) Weight: 150 lbs 09/15/2013 Blood Pressure 1: 118/68 Code: 8480-6 BMI: 22.0 Code: 60227-0 Heart Rate 1: 78 bpm Height: 5'9" Respiratory Rate: 20 bpm Temperature: 36 .1 (C) / 97.0 (F) Weight: 149 lbs 06/24/2013 Blood Pressure 1: 112/74 Code: 8480-6 Heart Rate 1: 74 bpm Respiratory Rate: 20 bpm Temperature: 36.6 (C) / 97.9 (F) Weight: 150 lbs 03/05/2013 Blood Pressure 1: 126/88 Code: 8480-6 BMI: 23.5 Code: 83681-6 Heart Rate 1: 80 bpm Height: 5'9" Respiratory Rate: 20 bpm Temperature: 36 .6 (C) / 97.9 (F) Weight: 159 lbs 02/09/2013 Blood Pressure 1: 110/68 Code: 8480-6 BMI: 21.9 Code: 96398-7 Heart Rate 1: 74 bpm Height: 5'9" Respiratory Rate: 22 bpm Temperature: 36 .8 (C) / 98.2 (F) Weight: 148 lbs 09/08/2010 Blood Pressure 1: 124/90 Code: 8480-6 BMI: 21.4 Code: 49682-5 Height: 5'10" Temperature: 36.4 (C) / 97.6 [...] Visit Reason For Visit Effective Dates Notes well woman exam (18-39 years) 11/16/2019 painful [...] painful Encounters Encounter Performer Location Codes Date (06174) PREV VISIT EST AGE 18-39 Diagnosis: Encounter for gynecological examination (general) (routine) with abnormal findings[ICD10: Z01.411] Diagnosis: Encounter for general adult medical examination without abnormal findings[ICD10: Z00.00] Diagnosis: Vaginitis[ICD10: N76.0] Diagnosis: Left breast mass[ICD10: N63.20] Diagnosis: Dense breast tissue[ICD10: R92.2] Diagnosis: Bilateral lower extremity edema[ICD10: R60.0] Diagnosis: control counseling[ICD10: Z30.09] Keyanna TALAMANTES DO [facility] CPT-4: 09113 11/16/2019 ([id number]) OFFICE/OUTPATIENT VISIT EST Diagnosis: Urethritis[ICD10: N34.2] Diagnosis: History of renal stone[ICD10: Z87.442] Josefa TALAMANTES DO [facility] CPT-4: 47003 07/07/2019 ([id number]) NURSE/OUTPATIENT VISIT EST Diagnosis: Urinary tract infection[ICD10: N39.0] Josefa TALAMANTES DO [facility] CPT-4: 03500 06/15/2019 ([id number]) OFFICE/OUTPATIENT VISIT EST Diagnosis: Dysuria[ICD10: R30.0] Diagnosis: Pelvic pain in female[ICD10: R10.2] Keyanna TALAMANTES DO [facility] CPT-4: 20125 06/05/2019 ([id number]) OFFICE/OUTPATIENT VISIT EST Diagnosis: Left wrist pain[ICD10: M25.532] Diagnosis: Swelling of left upper extremity[ICD10: M79.89] Keyanna TALAMANTES DO [facility] CPT-4: 71445 03/16/2019 ([id number]) NURSE/OUTPATIENT VISIT EST Diagnosis: Urinary tract infection[ICD10: N39.0] Josefa TALAMANTES DO [facility] CPT-4: 93846 03/02/2019 ([id number]) NURSE/OUTPATIENT VISIT EST Diagnosis: Irregular menstruation, unspecified[ICD10: N92.6] Diagnosis: Urinary tract infection[ICD10: N39.0] Josefa TALAMANTES DO [facility] CPT-4: 56103 02/16/2019 ([id number]) NURSE/OUTPATIENT VISIT EST Diagnosis: Irregular menstruation, unspecified[ICD10: N92.6] Josefa TALAMANTES DO [facility] CPT-4: 52086 05/21/2018 ([id number]) OFFICE/OUTPATIENT VISIT EST Diagnosis: Irregular menstruation, unspecified[ICD10: N92.6] Diagnosis: Diseases of lips[ICD10: K13.0] Diagnosis: 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] Keyanna TALAMANTES DO [facility] CPT-4: 47205 03/03/2018 ([id number]) NURSE/OUTPATIENT VISIT EST Diagnosis: Irregular menstruation, unspecified[ICD10: N92.6] Josefa TALAMANTES DO [facility] CPT-4: 37479 11/26/2017 ([id number]) OFFICE/OUTPATIENT VISIT EST Diagnosis: Irregular menstruation, unspecified[ICD10: N92.6] Josefa TALAMANTES DO [facility] CPT-4: 88067 08/27/2017 ([id number]) OFFICE/OUTPATIENT VISIT EST Diagnosis: Dysuria[ICD10: R30.0] Diagnosis: Irregular menstruation, unspecified[ICD10: N92.6] Josefa TALAMANTES DO [facility] CPT-4: 79895 06/06/2017 ([id number]) OFFICE/OUTPATIENT VISIT EST Diagnosis: Irregular menstruation, unspecified[ICD10: N92.6] Josefa TALAMANTES DO [facility] CPT-4: 45218 01/04/2017 ([id number]) PREV VISIT EST AGE 18-39 Diagnosis: Encounter for general adult medical examination without abnormal findings[ICD10: Z00.00] Diagnosis: Encounter for gynecological examination (general) (routine) without abnormal findings[ICD10: Z01.419] Diagnosis: Gastro-esophageal reflux disease without esophagitis[ICD10: K21.9] Diagnosis: Dysphagia, pharyngeal phase[ICD10: R13.13] Josefa TALAMANTES DO [facility] CPT-4: 07628 10/18/2016 ([id number]) OFFICE/OUTPATIENT VISIT EST Diagnosis: Irregular menstruation, unspecified[ICD10: N92.6] Josefa TALAMANTES DO [facility] CPT-4: 05902 10/12/2016 ([id number]) OFFICE/OUTPATIENT VISIT EST Diagnosis: Fever, unspecified[ICD10: R50.9] Diagnosis: Influenza due to identified novel influenza A virus with other respiratory manifestations[ICD10: J09.X2] Catrina TALAMANTES DO [facility] CPT-4: 97302 08/08/2016 ([id number]) OFFICE/OUTPATIENT VISIT EST Diagnosis: Irregular menstruation, unspecified[ICD10: N92.6] Josefa TALAMANTES DO [facility] CPT-4: 84860 07/25/2016 ([id number]) OFFICE/OUTPATIENT VISIT EST Diagnosis: Right upper quadrant pain[ICD10: R10.11] Diagnosis: Unspecified abdominal pain[ICD10: R10.9] Josefa TALAMANTES DO [facility] CPT-4: 66434 05/15/2016 ([id number]) OFFICE/OUTPATIENT VISIT EST Diagnosis: Irregular menstruation, unspecified[ICD10: N92.6] Josefa TALAMANTES DO [facility] CPT-4: 42097 05/03/2016 ([id number]) OFFICE/OUTPATIENT VISIT EST Diagnosis: Irregular menstruation, unspecified[ICD10: N92.6] Josefa TALAMANTES [facility] CPT-4: 32222 02/20/2016 OFFICE/OUTPATIENT VISIT EST Diagnosis: Cutaneous abscess of buttock[ICD10: L02.31] Kitty Caldera JOSEFA TALAMANTES [facility] CPT-4: 93930 12/23/2015 ([id number]) OFFICE/OUTPATIENT VISIT EST Diagnosis: Irregular menstruation, unspecified[ICD10: N92.6] Josefa TALAMANTES DO [facility] CPT-4: 79628 11/07/2015 ([id number]) OFFICE/OUTPATIENT VISIT EST Diagnosis: Irregular menstruation, unspecified[ICD10: N92.6] Josefa TALAMANTES DO [facility] CPT-4: 45798 08/01/2015 ([id number]) OFFICE/OUTPATIENT VISIT EST Diagnosis: Irregular menstruation, unspecified[ICD10: N92.6] Josefa TALAMANTES DO [facility] CPT-4: 63012 05/11/2015 ([id number]) OFFICE/OUTPATIENT VISIT EST Diagnosis: Irregular menstruation, unspecified[ICD10: N92.6] Josefa TALAMANTES DO [facility] CPT-4: 97108 02/16/2015 OFFICE/OUTPATIENT VISIT EST Diagnosis: SINUSITIS, ACUTE[ICD9: 461.9] Malgorzata TALAMANTES DO [facility] CPT-4: 70912 01/26/2015 ([id number]) OFFICE/OUTPATIENT VISIT EST Diagnosis: IRREGULAR MENSTRUATION[ICD9: 626.4] Josefa TALAMANTES [facility] CPT-4: 47319 11/29/2014 ([id number]) OFFICE/OUTPATIENT VISIT EST Diagnosis: IRREGULAR MENSTRUATION[ICD9: 626.4] Josefa TALAMANTES [facility] CPT-4: 80659 09/09/2014 ([id number]) OFFICE/OUTPATIENT VISIT EST Diagnosis: IRREGULAR MENSTRUATION[ICD9: 626.4] Diagnosis: General counseling and advice on contraceptive management[ICD9: V25.09] Diagnosis: Anxiety and depression[ICD9: 300.4] Malgorzata TALAMANTES [facility] CPT-4: 17470 06/16/2014 OFFICE/OUTPATIENT VISIT EST Diagnosis: Right upper quadrant pain[ICD9: 789.01] Malgorzata TALAMANTES [facility] CPT-4: 04906 01/28/2014 OFFICE/OUTPATIENT VISIT EST Diagnosis: Right upper quadrant pain[ICD9: 789.01] Malgorzata TALAMANTES [facility] CPT-4: 03805 12/10/2013 OFFICE/OUTPATIENT VISIT EST Diagnosis: Anxiety and depression[ICD9: 300.4] Malgorzata TALAMANTES [facility] CPT-4: 23657 10/20/2013 OFFICE/OUTPATIENT VISIT EST Diagnosis: Menorrhagia[ICD9: 626.2] Malgorzata RIVERA [facility] CPT-4: 14720 10/07/2013 OFFICE/OUTPATIENT VISIT EST Diagnosis: IRREGULAR MENSTRUATION[ICD9: 626.4] Malgorzata TALAMANTES [facility] CPT-4: 77328 09/15/2013 OFFICE/OUTPATIENT VISIT EST Diagnosis: HEMATURIA NOS[ICD9: 599.70] Diagnosis: Abdominal discomfort in right upper quadrant[ICD9: 789.01] Malgorzata TALAMANTES DO [facility] CPT-4: 07617 06/24/2013 ([id number]) OFFICE/OUTPATIENT VISIT EST Diagnosis: ABDOMINAL PAIN[ICD9: 789.00] Diagnosis: GERD[ICD9: 530.81] Josefa TALAMANTES [email or web address] CPT-4: 71403 03/05/2013 OFFICE/OUTPATIENT VISIT EST Diagnosis: General counseling and advice on contraceptive management[ICD9: V25.09] Diagnosis: IRREGULAR MENSTRUATION[ICD9: 626.4] Malgorzata TALAMANTES [facility] CPT-4: 97363 02/09/2013 ([id number]) OFFICE/OUTPATIENT VISIT EST Justine TALAMANTES DO [facility] CPT-4: 97311 09/08/2010 ([id number]) OFFICE/OUTPATIENT VISIT EST Justine TALAMANTES DO [facility] CPT-4: 25641 07/24/2010 Plan of Care Planned Activity Notes Codes Status Date Care Plan: Belle BOSE ADD ON TO LABS SENT ON 11/16/2019 Pending 11/17/2019 Visit Diagnosis Plan: Encounter for gyne cological examination (general) (routine) with abnormal findings Discussion: fasting labs to be completed this week [place] [facility]. order written and given to patient. pap and breast exam completed. see other plans. ICD-9 : V72.31 ICD-10 : Z01.411 11/16/2019 Visit Diagnosis Plan: Vaginitis Discussion: vaginal pr ofile swab obtained and ordered. ICD-9 : 616.10 ICD-10 : N76.0 11/16/2019 Visit Diagnosis Plan: Left breast mass [...] ICD-10 : R60.0 11/16/2019 Appointment: Keyanna Mejía [address] [place] [address] Annual Well Visit 11/16/2019 Visit Diagnosis Plan: Urethritis Discussion: Diflucan and topical nystatin ICD-9 : 597.80 ICD-10 : N34.2 07/07/2019 Visit Diagnosis Plan: History of renal stone Discussio n: Flomax Push water If not improving within 48hrs or if worsening then will need CT scan to assess for stone ICD-9 : V13.01 ICD-10 : Z87.442 07/07/2019 Appointment: Josefa Talamantes WPtel: [address] [place] [address] ACUTE ILLNESS 07/07/2019 Patient Education: nystatin- [employer] Coupon [id number] [email or web address] Completed 07/07/2019 Appointment: Josefa Talamantes WPtel: [address] [place] [address] 06/15/2019 Visit Diagnosis Plan: Dysuria Discussion: due to recur rent pain and worsening symptoms, rocephin 1 gm given in office. will send urine off for culture and call on saturday if any changes needed. instructed to push fluids through the w eekend and go to urgent care with any worsening. ICD-9 : 788.1 ICD-10 : R30.0 06/05/2019 Appointment: Keyanna Mejía [address] FOLLOW UP 06/05/2019 Visit Diagnosis Plan: [...] : M25.532 03/16/2019 Appointment: Keyanna Mejía [address] Hospital Follow Up 03/16/2019 Appointment: Josefa Talamantes WPtel: [address] [place], [place] [phone] [place] UA 03/02/2019 Appointment: Josefa Talamantes WPtel: [address] [place], [place] [phone] [place] INJECTION 02/16/2019 Appointment: Josefa Talamantes WPtel: [address] [place], [place] [phone] [place] INJECTION 05/21/2018 Visit Diagnosis Plan: Diseases [...] performed in office and negative. 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 had pap october of 2016. not due until 2019 or patient turns 29. ICD-9 : 626.4 ICD-10 : N92.6 03/03/2018 Appointment: Keyanna Mejía [address] [id number] ACUTE ILLNESS 03/03/2018 Patient Education: Patient Medication Summary Completed 03/03/2018 Care Plan: US EXAM OF HEAD AND NECK thyroid LOIN C : 17557-7 Pending 03/03/2018 Appointment: Josefa Talamantes WPtel: [address] [place], [place] [phone] [place] CANCELED 02/27/2018 Appointment: Josefa Talamantes WPtel: [address] [place], [place] [phone] [place] INJECTION 11/26/2017 Patient Education: Patient Medication Summary Completed 11/26/2017 Appointment: Josefa Talamantes WPtel: [address] [place], [place] [phone] [place] INJECTION 08/27/2017 Patient Education: Patient Medication Summary Completed 08/27/2017 Appointment: Josefa Talamantes WPtel: [address] [place], [place] [phone] [place] INJECTION 06/06/2017 Patient Education: Patient Medication Summary Completed 06/06/2017 Appointment: Josefa Talamantes WPtel: [address] [place], [place] [phone] [place] INJECTION 01/04/2017 Patient Education: Patient Medication Summary Completed 01/04/2017 Appointment: Joseaf Talamantes WPtel: [address] [place], [place] [phone] [place] 11/19 lm `sl 11/21 lm `sl NO SHOW 11/22/19 Patient Education: Patient Medication Summary Completed 10/22/2016 Care Plan: US EXAM OF HEAD AND NECK Thyroid Ultrasound LOIN C : 90405-4 Pending 10/22/2016 Visit Diagnosis Plan: Gastro-esophageal reflux [...] : R13.13 10/18/2016 Appointment: Josefa Talamantes WPtel: [address] [place], [place] [id number] [place] 6/7 lm ` Annual Well Visit 10/18/2016 Patient Education: Patient Medication Summary Completed 10/18/2016 Appointment: Josefa Talamantes WPtel: [address] [place] [phone] [place] INJECTION 10/12/2016 Patient Education: Patient Medication Summary Completed 10/12/2016 Visit Diagnosis Plan: Influenza due to i dentified novel influenza A virus with other respiratory manifestations Discussion: Flu A positive Rx as above Supportive care otherwise Contagious precautions discussed Notify kids' provider of exposure for their instructions ICD-9 : 488.02 ICD-10 : J09.X2 08/08/2016 Appointment: Catrina Bran [address] [place], [place] [phone] [place] ACUTE ILLNESS 08/08/2016 Patient Education: Patient Medication Summary Completed 08/08/2016 Appointment: Josefa Talamantes WPtel: [address] [place], [place] [phone] [place] INJECTION 07/25/2016 Patient Education: Patient Medication Summary Completed 07/25/2016 Visit Plan: Finish abx and then recultur e 48hrs after completion Add levsin and zorvolex 05/15/2016 Appointment: Josefa Talamantes WPtel: [address] [place], [place] [phone] [place] 1/2 lm `sl 1/3 confirmed~ Hospital Follow Up 0 05/15/2016 Patient Education: Patient Medication Summary Completed 05/15/2016 Appointment: Catrina Bran [address] [place], [place] [phone] [place] 05/09 admitted into the hospital last night~ ACUTE ILLNESS 05/09/2016 Appointment: Josefa Talamantes WPtel: [address] [place] [phone] [place] INJECTION 05/03/2016 Patient Education: Patient Medication Summary Completed 05/03/2016 Appointment: Josefa Talamantes WPtel: [address] [place], [place] [phone] [place] INJECTION 02/20/2016 Patient Education: Patient Medication Summary Completed 02/20/2016 Visit Plan: ERx for Bactrim and Bactroba n Called to [facility] Ultram 50mg 1 po q 4-6 hours prn pain #20 Warm moist heat to area qid Watch for s/s of worsening, go to over weekend Discussed SE of meds including s/s of SJS which would require an ER visit C&S obtained 12/23/2015 Appointment: Kitty Caldera WPtel: [address] [place], [place] [phone] [place] ACUTE ILLNESS 12/23/2015 Patient Education: Patient Medication Summary Completed 12/23/2015 Appointment: Josefa Talamantes WPtel: [address] [place], [place] [phone] [place] INJECTION 11/07/2015 Patient Education: Patient Medication Summary Completed 11/07/2015 Appointment: Josefa Talamantes WPtel: [address] [place], [place] [phone] [place] INJECTION 08/01/2015 Patient Education: Patient Medication Summary Completed 08/01/2015 Appointment: Josefa Talamantes WPtel: [address] [place], [place] [phone] [place] INJECTION 05/11/2015 Patient Education: Patient Medication Summary Completed 05/11/2015 Appointment: Malgorzata Islas WPtel: [address] [place], [place] [phone] [place] PAP 04/05/2015 Appointment: Josefa Talamantes WPtel: [address] [place], [place] [phone] [place] INJECTION 02/16/2015 Patient Education: Patient Medication Summary Completed 02/16/2015 Visit Plan: Daily nasal saline rinses Fl onase nasal spray and daily Zyrtec Medrol dose pack Z-jhonathan as directed 01/26/2015 Appointment: Malgorzata Islas WPtel: [address] [place], [place] [phone] [place] ACUTE ILLNESS 01/26/2015 Patient Education: Patient Medication Summary Completed 01/26/2015 Appointment: Josefa Talamantes WPtel: [address] [place], [place] [phone] [place] INJECTION 11/29/2014 Patient Education: Patient Medication Summary Completed 11/29/2014 Appointment: Josefa Talamantes WPtel: [address] [place], [place] [phone] INJECTION 09/09/2014 Patient Education: Patient Medication Summary Completed 09/09/2014 Appointment: Malgorzata Islas WPtel: [address] [place], [place] [phone] FOLLOW UP 06/16/2014 Patient Education: Patient Medication Summary Completed 06/16/2014 Appointment: Malgorzata Islas WPtel: [address] [place], [place] [phone] 06/02/14 appointment scheduled 06/03/14 no showed PAP 06/03/2014 Appointment: Malgorzata Islas WPtel: [address] [place], [place] [phone] FOLLOW UP 01/28/2014 Patient Education: Patient Medication Summary Completed 01/28/2014 Care Plan: [place] : [address]-2 Ordered 01/28/2014 Care Plan: AMYLASE Pending 4 Appointment: Malgorzata Islas WPtel: [address] [place], [place] [phone] [place] FOLLOW UP 12/10/2013 Patient Education: Patient Medication Summary Completed 12/10/2013 Appointment: Malgorzata Islas WPtel: [address] [place], [place] [phone] 11/11 vm 11/12 No Show FOLLOW UP 11/12/2013 Appointment: Malgorzata Islas WPtel: [address] [place], [place] [phone] [place] FOLLOW UP 10/20/2013 Patient Education: Patient Medication Summary Completed 10/20/2013 Visit Plan: Quantitative Hcg and CBC tod ay. Transvaginal/Transabdominal sonogram stat Discussed with [facility] and [facility] 343 so will recheck in 1week as long as not worsening 10/07/2013 Appointment: Malgorzata Islas WPtel: [address] [place] [address] ACUTE ILLNESS 10/07/2013 Patient Education: Patient Medication Summary Completed 10/07/2013 Appointment: Malgorzata Islas WPtel: [address] [place] [address] ACUTE ILLNESS 09/15/2013 Patient Education: Patient Medication Summary Completed 09/15/2013 Appointment: Malgorzata Islas WPtel: [address] [place] [address] ACUTE ILLNESS 06/24/2013 Patient Education: Patient Medication Summary Completed 06/24/2013 Appointment: Malgorzata Islas WPtel: [address] [place] [address] [place] appt was scheduled today then patient no showed the visit ACUTE ILLNESS 05/21/2013 Visit Plan: Check CMP, CBC, UA CT scan o f abdomen Omeprazole 03/05/2013 Appointment: Josefa Talamantes WPtel: [address] [place] [address] ACUTE ILLNESS 03/05/2013 Appointment: Josefa Talamantes WPtel: [address] [place] [address] 03/02 canceled, wrong patient FOLLOW UP Patient Education: Patient Medication Summary Completed 03/05/2013 Appointment: Malgorzata Islas WPtel: [address] [place] [address] ACUTE ILLNESS 02/09/2013 Patient Education: Patient Medication Summary Completed 02/09/2013 Appointment: Justine Ortega WPtel: [address] [place] [address] ACUTE ILLNESS 09/08/2010 Patient Education: Patient Medication Summary Completed 09/08/2010 Appointment: Justine Ortega WPtel: [address] [place] [address] [place] PAP 08/08/2010 Appointment: Justine Ortega WPtel: [address] [place] [address] ACUTE ILLNESS 07/24/2010 Patient Education: Patient Medication Summary Completed 07/24/2010 Visit Plan: All warts shaved with 11-rekha de scalpel and then cryotherapy x3 Will followup with DNCB treatment 03/08/2010 Appointment: Josefa Talamantes WPtel: [address] [place] [address] ACUTE ILLNESS 03/08/2010 Patient Education: Patient Medication Summary Completed 03/08/2010 Appointment: Josefa Talamantes WPtel: [address] [place] [address] PAP 09/14/2009 Referral: Roney Galloway WPtel: [address] Referral Initiated Referral: Brian Floyd WPtel: [address] Referral Initiated Referral: Referral Initiated Instructions Comment [...] CBC today. Transvaginal/Transabdominal sonogram stat Discussed with BATTERYMAN and [facility] 343 so will recheck in [...]
--- OUTSIDE RECORDS SUMMARY | 2019-12-11 21:59 | XMS REPORT | CCD ---
Author Author Brenda Talamantes D.O. Organization JOSEFA TALAMANTES DO [facility] Address [address] [place] [address] Phone Care Team Providers Care Snow Remover Name Role Phone Josefa Talamantes D.O., PP Unavailable CCM Unavailable Summary Purpose Interface Exchange Insurance Providers Payer name Policy type / Coverage type Covered constitution party ID Effective Begin Date Effective End Date [employer] [facility] Commercial Insurance [id number] Unknown Family History Family History data not found Social History Social History Element Codes Description Effective Dates Tobacco history SNOMED CT: 260485556 Unknown if ever smoked 01/12 Allergies, Adverse [...] Fill Instructions metronidazole 500 mg tablet RxNorm: 213923 1 Tablet(s) Oral two times a day 11/17/2019 11/24/2019 Active metronidazole 500 mg tablet RxNorm: 518134 1 Tablet(s) Oral two times a day 11/17/2019 11/16/2019 Inactive Depo-Provera 150 mg/mL intramuscular suspension RxNorm: 1000 128 1 Application Intramuscular 11/16/2019 No Stop Date Active Diflucan 100 mg tablet RxNorm: 876220 1 Tablet(s) Oral QD 07/07/2019 07/14/2019 Inactive Flomax 0.4 mg capsule RxNorm: 422062 1 Capsule(s) Oral QPM for kidney stone 07/07/2019 08/06/2019 Inactive nystatin 100,000 unit/gram topical cream RxNorm: 679777 Application Topical two times a day to periurethral area 07/07/2019 11/16/2019 Inactive Bactrim DS 800 mg-160 mg tablet RxNorm: 619855 1 Tablet(s) Oral two times a day 06/08/2019 06/13/2019 Inactive Bactrim DS 800 mg-160 mg tablet RxNorm: 666114 1 Tablet(s) Oral two times a day 06/08/2019 06/07/2019 Inactive ibuprofen 800 mg tablet RxNorm: 453508 1 Tablet(s) Oral Q8H as needed 03/16/2019 06/05/2019 Inactive Cipro 500 mg tablet RxNorm: 789500 1 Tablet(s) Oral two times a day 03/04/2019 03/11/2019 Inactive Cipro 500 mg tablet RxNorm: 243867 1 Tablet(s) Oral two times a day 03/04/2019 03/03/2019 Inactive Macrobid 100 mg capsule RxNorm: 984746 1 Capsule(s) Oral two ti mes a day 02/16/2019 02/15/2019 Inactive Macrobid 100 mg capsule RxNorm: 905774 1 Capsule(s) Oral two ti mes a [...] 11/24/2017 Inactive Pepcid 40 mg tablet RxNorm: 344147 1 Tablet(s) PO QD 10/18/201603/02 Inactive Depo-Provera 150 mg/mL intramuscular suspension RxNorm: 1000 128 Milliliter(s) 1 Milliliter(s) IM 10/10/2016 06/04/2017 Inactive Tamiflu 75 mg capsule RxNorm: 868173 1 Capsule(s) PO BID 08/08/2016 0 08/12/2016 Inactive Levsin 0.125 mg tablet RxNorm: 6928210 1 Tablet(s) PO TID for fl ank pain 05/15/2016 10/17/2016 Inactive Bactrim DS 800 mg-160 mg tablet RxNorm: 144733 1 Tablet(s) PO BID 0 12/23/2015 01/01/2016 Inactive mupirocin 2 % topical ointment RxNorm: 728597 Application TOP TID 0 12/23/2015 12/29/2015 Inactive Depo-Provera 150 mg/mL intramuscular suspension RxNorm: 1000 128 Milliliter(s) 1 Milliliter(s) IM 11/08/2015 10/09/2016 Inactive Xanax 0.25 mg tablet RxNorm: 329188 TAKE ONE-HALF TO ON E TABLET BY MOUTH NEEDED FOR ANXIETY 04/11/2015 05/10/2015 Inactive Generic For:X ANAX 0.25 MG TABLET 04/11/2015 2:54:57 PM Depo-Provera 150 mg/mL intramuscular suspension RxNorm: 1000 128 Milliliter(s) 1 Milliliter(s) IM 02/15/2015 11/07/2015 Inactive azithromycin 250 mg tablet RxNorm: 452297 2 Tablet(s) P O today, then one tablet on days 2 - 5 01/26/2015 12/22/2015 Inactive Medrol (Jhonathan) 4 mg tablets in a dose pack RxNorm: 739009 Tablet(s) P O 01/26/2015 12/22/2015 Inactive Depo-Provera 150 mg/mL intramuscular suspension RxNorm: 1000 128 1 Milliliter(s) IM 09/06/2014 02/15/2015 Inactive Xanax 0.25 mg tablet RxNorm: 867696 1/2 - 1 Tablet(s) PO as nee ded for anxiety 06/16/2014 04/12/2015 Inactive Zoloft 50 mg tablet RxNorm: 186617 1 Tablet(s) PO QD 06/16/201412/21 Inactive Flexeril [...] 2014 Inactive Xanax 0.25 mg tablet RxNorm: 073215 1/2 - 1 Tablet(s) PO as nee ded for anxiety 01/28/2014 06/15/2014 Inactive naproxen 500 mg tablet RxNorm: 586132 1 Tablet(s) PO BID 12/10/2013 0 01/08/2014 Inactive Zoloft 50 mg tablet RxNorm: 448765 1 Tablet(s) PO QD 12/10/201304/08 Inactive Xanax 0.25 mg tablet RxNorm: 391791 1/2 - 1 Tablet(s) PO as nee ded for anxiety 12/10/2013 01/27/2014 Inactive Xanax 0.25 mg tablet RxNorm: 690103 1 Tablet(s) PO Q8H 10/20/2013 Inactive Zoloft 50 mg tablet RxNorm: 198850 1/2 Tablet(s) PO x 6 days then on1 tablet daily 10/20/2013 11/18/2013 Inactive Loestrin Fe 06/01 (28) 1 mg-20 mcg tablet RxNorm: 7212152 1 Table t(s) PO QD 10/20/2013 05/03/2014 Inactive phenazopyridine 100 mg tablet RxNorm: 7200926 1 Tablet(s) PO Q8H 06/26/2013 Inactive Macrobid 100 mg capsule RxNorm: 497654 1 Capsule(s) PO BID 06/25/19 14 07/04/2013 Inactive phenazopyridine 100 mg tablet RxNorm: 2769399 1 Tablet(s) PO Q8H 06/24/2013 Inactive Macrobid 100 mg capsule RxNorm: 167393 1 Capsule(s) PO BID 07/25/1908/02/2010 Inactive Apri 0.15 mg-30 mcg tablet RxNorm: 877696 1 Tablet(s) PO QD As directed. No Start Date 06/23/2013 Inactive omeprazole 40 mg capsule,delayed release RxNorm: 531713 1 Capsule(s) PO QD for stomach No Start Date 06/23/2013 Inactive naproxen 500 mg tablet RxNorm: 820852 1 Tablet(s) PO BID No Start D ate 06/15/2014 Inactive hydrocodone 10 mg-acetaminophen 325 mg tablet RxNorm: 209226 Tablet(s) PO as needed for pain No Start Date 12/22/2015 Inactive Zoloft 50 mg tablet RxNorm: 900894 1 Tablet(s) PO QD No Start Date Inactive hydrocodone 5 mg-acetaminophen 325 mg tablet RxNorm: 205436 1 Tablet(s) PO QID as needed for pain No Start Date 09/14/2013 Inactive Medication Administered No Medication Administered data Immunizations No Immunization data Results Observation Observation Code Item Item Code Result Date S ervice Location V PROF SWB [id number] Whiff TNP:Duplicate Order 11/17/19 20 Unknown V PROF SWB [id number] WBC Vaginal TNP:Duplicate Order 2019 Unknown V PROF SWB [id number] LABEL REMOVER Lactobac TNP:Duplicate Order 2019 Unknown V PROF SWB [id number] Clue Cells TNP:Duplicate Order 020 Unknown V PROF SWB [id number] LABEL REMOVER Curved GNR TNP:Duplicate Order 11/2019 Unknown V PROF SWB [id number] Yeast Vaginal TNP:Duplicate Order 11/2019 Unknown V PROF SWB [id number] LABEL REMOVER SM GVB TNP:Duplicate Order 11/17/19 20 Unknown V PROF SWB [id number] LABEL REMOVER Swb Trich Ag TNP:Duplicate Order Unknown V PROF SWB [id number] LABEL REMOVER BV Stain TNP:Duplicate Order 2019 Unknown V PROF SWB [id number] LABEL REMOVER Interp TNP:Duplicate Order 11/17/19 20 Unknown V PROF SWB [id number] Conf BV Stain TNP:Duplicate Order 11/2019 Unknown V PROF SWB [id number] Whiff Positive 11/17/2019 Unknown V PROF SWB [id number] WBC Vaginal Few 11/17/2019 Unknow n V PROF SWB [id number] Clue Cells >20% 11/17/2019 Unknown V PROF SWB [id number] Yeast Vaginal None 11/17/2019 Unkn own V PROF SWB [id number] LABEL REMOVER Swb Trich Ag Negative 11/17/2019 Un known V PROF SWB [id number] LABEL REMOVER BV Stain 10 11/17/2019 Unknow n V PROF SWB [id number] LABEL REMOVER Interp Results indicate Bacteria l Vaginosis Syndrome. 11/17/2019 Unknown VAG PROF [id number] PH TNP:Improper Specimen 020 Unknown VAG PROF [id number] Whiff TNP:Improper Specimen 020 Unknown VAG PROF [id number] WBC Vaginal TNP:Improper Specimen 11/15 Unknown VAG PROF [id number] LABEL REMOVER Lactobac TNP:Improper Specimen 11/15 Unknown VAG PROF [id number] Clue Cells TNP:Improper Specimen 2019 Unknown VAG PROF [id number] LABEL REMOVER Curved GNR TNP:Improper Specimen 10/2019 Unknown VAG PROF [id number] Yeast Vaginal TNP:Improper Specimen 10/2019 Unknown VAG PROF [id number] LABEL REMOVER SM GVB TNP:Improper Specimen 020 Unknown VAG PROF [id number] Trichomonas TNP:Improper Specimen 11/15 Unknown VAG PROF [id number] LABEL REMOVER BV Stain TNP:Improper Specimen 11/15 Unknown VAG PROF [id number] LABEL REMOVER Intp TNP:Improper Specimen 020 Unknown VAG PROF [id number] Conf BV Stain TNP:Improper Specimen 10/2019 Unknown LIPASE 81701 LIPASE 14 IU/L 01/28/2014 Unknown COMPLETE BLOOD COUNT [id number] WBC 6.5 10e9/L 01/29/20 14 Unknown COMPLETE BLOOD COUNT [id number] RBC 4.54 10e12/L 2013 Unknown COMPLETE BLOOD COUNT [id number] HGB 12.1 g/dL 4 Unknown COMPLETE BLOOD COUNT [id number] HCT DET 38.0 % 4 Unknown COMPLETE BLOOD COUNT [id number] MCV 83.7 fL 4 Unknown COMPLETE BLOOD COUNT [id number] MCH 26.7 pg 4 Unknown COMPLETE BLOOD COUNT [id number] MCHC 31.8 g/dL 4 Unknown COMPLETE BLOOD COUNT [id number] PLT 218 10e9/L 01/29/20 14 Unknown COMPLETE BLOOD COUNT [id number] MPV 12.8 fL 4 Unknown COMPLETE BLOOD COUNT [id number] RACHNA % 56.5 % 4 Unknown COMPLETE BLOOD COUNT [id number] LY % 32.3 % 4 Unknown COMPLETE BLOOD COUNT [id number] MON % 8.6 % 4 Unknown COMPLETE BLOOD COUNT [id number] EOS % 2.1 % 4 Unknown COMPLETE BLOOD COUNT [id number] BASO % 0.5 % 4 Unknown COMPLETE BLOOD COUNT 6393443 RDW 18.4 % 4 Unknown COMPLETE BLOOD COUNT [id number] ABS RACHNA 3.67 10e9/L 014 Unknown COMPLETE BLOOD COUNT [id number] ABS LYMPH 2.10 10e9/L 014 Unknown COMPLETE BLOOD COUNT [id number] ABS MONO 0.56 10e9/L 014 Unknown COMPLETE BLOOD COUNT [id number] ABS EOS 0.14 10e9/L 014 Unknown COMPLETE BLOOD COUNT [id number] ABS BASO 0.03 10e9/L 014 Unknown COMPLETE BLOOD COUNT 6665065 RDW-SD 55.5 fL 4 Unknown COMPREHENSIVE METABOLIC 53173 AST 13 U/L 2013 Unknown COMPREHENSIVE METABOLIC 38506 ALT 7 IU/L 2013 Unknown COMPREHENSIVE METABOLIC 04060 BUN 8 MG/DL 2013 Unknown COMPREHENSIVE METABOLIC 81596 ALBUMIN 4.5 GM/DL 2013 Unknown COMPREHENSIVE METABOLIC 31262 CHLORIDE 106 MMOL/L 01/28 Unknown COMPREHENSIVE METABOLIC 80379 BILI TOT 0.4 MG/DL 2013 Unknown COMPREHENSIVE METABOLIC 76000 ALK PHOS 55 U/L 2013 Unknown COMPREHENSIVE METABOLIC 12405 SODIUM 138 MMOL/L 01/28 Unknown COMPREHENSIVE METABOLIC 11280 CREATININE 0.73 MG/DL 01/11 Unknown COMPREHENSIVE METABOLIC 90947 CALCIUM 9.9 MG/DL 2013 Unknown COMPREHENSIVE METABOLIC 88525 POTASSIUM 3.8 MMOL/L 01/28 Unknown COMPREHENSIVE METABOLIC 89279 PROT TOT 7.4 GM/DL 2013 Unknown COMPREHENSIVE METABOLIC 04884 Glucose 96 MG/DL 2013 Unknown COMPREHENSIVE METABOLIC 47231 BICARB 27 MMOL/L 2013 Unknown COMPREHENSIVE METABOLIC 31072 ANION GAP 5 MEQ/L 2013 Unknown AMYLASE 20939 AMYLASE 42 IU/L 01/28/2014 Unknown GFR CALC [id number] GFR AA >60 ML/MIN 01/28/2014 Unknown GFR CALC [id number] GFR NON-AA >60 ML/MIN 01/28/2014 Unknown Procedures Procedure Codes Date THER/PROPH/DIAG INJ SC/IM CPT-4: 97088 11/19/2019 URINE TEST CPT-4: 14774 11/16/2019 SPECIMEN HANDLING OFFICE-LAB CPT-4: 94605 11/16/2019 URINE CULTURE/ COLONY COUNT CPT-4: 48813 06/15/2019 URINALYSIS NONAUTO W/O SCOPE CPT-4: 37281 06/05/2019 CEFTRIAXONE SODIUM INJECTION CPT-4: J0696 06/05/2019 THER/PROPH/DIAG INJ SC/IM CPT-4: 82038 06/05/2019 URINE CULTURE/ COLONY COUNT CPT-4: 84838 06/05/2019 URINE CULTURE/ COLONY COUNT CPT-4: 63271 03/02/2019 THER/PROPH/DIAG INJ SC/IM CPT-4: 89227 02/16/2019 URINE CULTURE/ COLONY COUNT CPT-4: 25115 02/16/2019 URINALYSIS NONAUTO W/O SCOPE CPT-4: 63289 02/16/2019 URINE TEST CPT-4: 22403 02/16/2019 THER/PROPH/DIAG INJ SC/IM CPT-4: 54771 05/21/2018 THER/PROPH/DIAG INJ SC/IM CPT-4: 55540 11/26/2017 THER/PROPH/DIAG INJ SC/IM CPT-4: 37881 08/27/2017 THER/PROPH/DIAG INJ SC/IM CPT-4: 89645 06/06/2017 URINALYSIS NONAUTO W/O SCOPE CPT-4: 51982 06/06/2017 GC/CHLAMYDIA DNA (BD-ProbeTec) CPT-4: 96980|91077 8 URINE CULTURE/ COLONY COUNT CPT-4: 32772 06/06/2017 THER/PROPH/DIAG INJ SC/IM CPT-4: 76594 01/04/2017 SPECIMEN HANDLING OFFICE-LAB CPT-4: 47984 10/18/2016 THER/PROPH/DIAG INJ SC/IM CPT-4: 79894 10/12/2016 INFLUENZA ASSAY W/OPTIC CPT-4: 53511 08/08/2016 THER/PROPH/DIAG INJ SC/IM CPT-4: 17665 07/25/2016 THER/PROPH/DIAG INJ SC/IM CPT-4: 31876 05/03/2016 THER/PROPH/DIAG INJ SC/IM CPT-4: 47515 02/20/2016 URINE TEST CPT-4: 42468 02/20/2016 AEROBIC WOUND CULTURE & STN CPT-4: 78219 12/23/2015 THER/PROPH/DIAG INJ SC/IM CPT-4: 87805 11/07/2015 URINE TEST CPT-4: 36154 11/07/2015 THER/PROPH/DIAG INJ SC/IM CPT-4: 79564 08/01/2015 THER/PROPH/DIAG INJ SC/IM CPT-4: 64841 05/11/2015 THER/PROPH/DIAG INJ SC/IM CPT-4: 83396 02/16/2015 THER/PROPH/DIAG INJ SC/IM CPT-4: 61182 11/29/2014 THER/PROPH/DIAG INJ SC/IM CPT-4: 11952 09/09/2014 URINE TEST CPT-4: 74052 06/16/2014 THER/PROPH/DIAG INJ SC/IM CPT-4: 84456 06/16/2014 ROUTINE VENIPUNCTURE CPT-4: 11207 10/07/2013 COMPLETE CBC W/AUTO DIFF WBC CPT-4: 96866 10/07/2013 CHORIONIC GONADOTROPIN TEST CPT-4: 63408 10/07/2013 URINE TEST CPT-4: 00457 09/15/2013 URINALYSIS NONAUTO W/O SCOPE CPT-4: 19776 06/24/2013 URINE CULTURE/ COLONY COUNT CPT-4: 10780 06/24/2013 URINE TEST CPT-4: 84492 09/08/2010 URINALYSIS NONAUTO W/O SCOPE CPT-4: 47721 07/24/2010 URINE CULTURE/ COLONY COUNT CPT-4: 08847 07/24/2010 DESTRUCT PREMALG LESION (Cryosurgery) CPT-4: 57867 DESTRUCT PREMALG LES 2-14 CPT-4: 02762 03/08/2010 Vital Signs Date Vital 11/16/2019 Blood Pressure 1: 119/75 Code: 8480-6 BMI: 24.4 Code: 78666-5 Heart Rate 1: 112 bpm Height: 5'9" Respiratory Rate: 15 bpm SpO2: 98% Tempera ture: 36.8 (C) / 98.2 (F) Weight: 165 lbs 07/07/2019 Blood Pressure 1: 126/82 Code: 8480-6 Heart Rate 1: 100 bpm SpO2: 99% Temperature: 36.8 (C) / 98.2 (F) 06/05/2019 Blood Pressure 1: 131/82 Code: 8480-6 BMI: 26.3 Code: 76885-0 Heart Rate 1: 109 bpm Height: 5'9" Respiratory Rate: 16 bpm SpO2: 99% Tempera ture: 36.7 (C) / 98.1 (F) Weight: 178 lbs 03/16/2019 Blood Pressure 1: 132/86 Code: 8480-6 Heart Rate 1: 73 bpm SpO2: 99% Temperature: 36.6 (C) / 97.9 (F) Weight: 158 lbs 03/03/2018 Blood Pressure 1: 120/88 Code: 8480-6 BMI: 23.9 Code: 32553-5 Heart Rate 1: 81 bpm Height: 5'9" Respiratory Rate: 18 bpm SpO2: 99% Tempera ture: 36.1 (C) / 97.0 (F) Weight: 162 lbs 10/18/2016 Blood Pressure 1: 108/78 Code: 8480-6 BMI: 22.6 Code: 61553-3 Heart Rate 1: 100 bpm Height: 5'9" Respiratory Rate: 20 bpm SpO2: 98% Tempera ture: 37.1 (C) / 98.8 (F) Weight: 153 lbs 08/08/2016 Blood Pressure 1: 114/78 Code: 8480-6 Heart Rate 1: 102 bpm Respiratory Rate: 20 bpm SpO2: 98% Temperature: 36.4 (C) / 97.6 (F) We ight: 152 lbs 05/15/2016 Blood Pressure 1: 124/80 Code: 8480-6 BMI: 23.2 Code: 78775-0 Heart Rate 1: 100 bpm Height: 5'9" Respiratory Rate: 20 bpm Temperature: 37 .0 (C) / 98.6 (F) Weight: 157 lbs 12/23/2015 Blood Pressure 1: 124/78 Code: 8480-6 BMI: 23.0 Code: 20411-5 Heart Rate 1: 92 bpm Height: 5'9" Respiratory Rate: 20 bpm SpO2: 97% Tempera ture: 36.9 (C) / 98.5 (F) Weight: 156 lbs 01/26/2015 Blood Pressure 1: 118/78 Code: 8480-6 BMI: 21.3 Code: 14553-7 Heart Rate 1: 100 bpm Height: 5'9" Respiratory Rate: 20 bpm SpO2: 97% Tempera ture: 36.6 (C) / 97.8 (F) Weight: 144 lbs 06/16/2014 Blood Pressure 1: 118/78 Code: 8480-6 BMI: 23.5 Code: 51130-6 Heart Rate 1: 78 bpm Height: 5'9" Respiratory Rate: 18 bpm Temperature: 36 .1 (C) / 97.0 (F) Weight: 159 lbs 01/28/2014 Blood Pressure 1: 124/78 Code: 8480-6 BMI: 23.2 Code: 25218-2 Heart Rate 1: 88 bpm Height: 5'9" Respiratory Rate: 22 bpm Temperature: 36 .1 (C) / 97.0 (F) Weight: 157 lbs 12/10/2013 Blood Pressure 1: 124/70 Code: 8480-6 BMI: 23.0 Code: 37796-8 Heart Rate 1: 82 bpm Height: 5'9" Respiratory Rate: 20 bpm Temperature: 36 .2 (C) / 97.2 (F) Weight: 156 lbs 10/20/2013 Blood Pressure 1: 118/82 Code: 8480-6 Heart Rate 1: 84 bpm Respiratory Rate: 22 bpm Temperature: 36.5 (C) / 97.7 (F) Weight: 150 lbs 10/07/2013 Blood Pressure 1: 120/80 Code: 8480-6 BMI: 22.2 Code: 49085-7 Heart Rate 1: 68 bpm Height: 5'9" Respiratory Rate: 22 bpm Temperature: 36 .2 (C) / 97.2 (F) Weight: 150 lbs 09/15/2013 Blood Pressure 1: 118/68 Code: 8480-6 BMI: 22.0 Code: 18549-4 Heart Rate 1: 78 bpm Height: 5'9" Respiratory Rate: 20 bpm Temperature: 36 .1 (C) / 97.0 (F) Weight: 149 lbs 06/24/2013 Blood Pressure 1: 112/74 Code: 8480-6 Heart Rate 1: 74 bpm Respiratory Rate: 20 bpm Temperature: 36.6 (C) / 97.9 (F) Weight: 150 lbs 03/05/2013 Blood Pressure 1: 126/88 Code: 8480-6 BMI: 23.5 Code: 98200-0 Heart Rate 1: 80 bpm Height: 5'9" Respiratory Rate: 20 bpm Temperature: 36 .6 (C) / 97.9 (F) Weight: 159 lbs 02/09/2013 Blood Pressure 1: 110/68 Code: 8480-6 BMI: 21.9 Code: 64206-2 Heart Rate 1: 74 bpm Height: 5'9" Respiratory Rate: 22 bpm Temperature: 36 .8 (C) / 98.2 (F) Weight: 148 lbs 09/08/2010 Blood Pressure 1: 124/90 Code: 8480-6 BMI: 21.4 Code: 63366-1 Height: 5'10" Temperature: 36.4 (C) / 97.6 [...] Irregular menstruation, unspecified[ICD10: N92.6] Josefa TALAMANTES DO [facility] CPT-4: 94662 11/19/2019 ([id number]) PREV VISIT EST AGE 18-39 Diagnosis: Encounter for gynecological examination (general) (routine) with abnormal findings[ICD10: Z01.411] Diagnosis: Encounter for general adult medical examination without abnormal findings[ICD10: Z00.00] Diagnosis: Vaginitis[ICD10: N76.0] Diagnosis: Left breast mass[ICD10: N63.20] Diagnosis: Dense breast tissue[ICD10: R92.2] Diagnosis: Bilateral lower extremity edema[ICD10: R60.0] Diagnosis: control counseling[ICD10: Z30.09] Keyanna Mejía CHANNING NELIDAADAM SergioMaria Teresa [facility] CPT-4: 02201 11/16/2019 ([id number]) OFFICE/OUTPATIENT VISIT EST Diagnosis: Urethritis[ICD10: N34.2] Diagnosis: History of renal stone[ICD10: Z87.442] Josefa BRIAN SergioMaria Teresa [facility] [employer] CPT-4: 49892 07/07/2019 ([id number]) NURSE/OUTPATIENT VISIT EST Diagnosis: Urinary tract infection[ICD10: N39.0] Josefa DE SOUZA SergioMaria Teresa [facility] [employer] CPT-4: 77549 06/15/2019 ([id number]) OFFICE/OUTPATIENT VISIT EST Diagnosis: Dysuria[ICD10: R30.0] Diagnosis: Pelvic pain in female[ICD10: R10.2] Keyanna STRANGE KATTY SergioMaria Teresa [facility] [employer] CPT-4: 38587 06/05/2019 ([id number]) OFFICE/OUTPATIENT VISIT EST Diagnosis: Left wrist pain[ICD10: M25.532] Diagnosis: Swelling of left upper extremity[ICD10: M79.89] Keyanna Mejía JOSEFA SergioMaria Teresa [facility] [employer] [facility] CPT-4: 86354 03/16/2019 ([id number]) NURSE/OUTPATIENT VISIT EST Diagnosis: Urinary tract infection[ICD10: N39.0] Josefa DE SOUZA SergioMaria Teresa [facility] [employer] [facility] CPT-4: 23329 03/02/2019 ([id number]) NURSE/OUTPATIENT VISIT EST Diagnosis: Irregular menstruation, unspecified[ICD10: N92.6] Diagnosis: Urinary tract infection[ICD10: N39.0] Josefa DE SOUZA SergioMaria Teresa [facility] [facility] CPT-4: 15615 02/16/2019 ([id number]) NURSE/OUTPATIENT VISIT EST Diagnosis: Irregular menstruation, unspecified[ICD10: N92.6] Josefa TALAMANTES DO [facility] CPT-4: 58296 05/21/2018 ([id number]) OFFICE/OUTPATIENT VISIT EST Diagnosis: Irregular menstruation, unspecified[ICD10: N92.6] Diagnosis: Diseases of lips[ICD10: K13.0] Diagnosis: 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] Keyanna TALAMANTES DO [facility] CPT-4: 44871 03/03/2018 ([id number]) NURSE/OUTPATIENT VISIT EST Diagnosis: Irregular menstruation, unspecified[ICD10: N92.6] Josefa TALAMANTES DO [facility] CPT-4: 37623 11/26/2017 ([id number]) OFFICE/OUTPATIENT VISIT EST Diagnosis: Irregular menstruation, unspecified[ICD10: N92.6] Josefa TALAMANTES DO [facility] CPT-4: 26194 08/27/2017 ([id number]) OFFICE/OUTPATIENT VISIT EST Diagnosis: Dysuria[ICD10: R30.0] Diagnosis: Irregular menstruation, unspecified[ICD10: N92.6] Josefa TALAMANTES DO [facility] CPT-4: 17477 06/06/2017 ([id number]) OFFICE/OUTPATIENT VISIT EST Diagnosis: Irregular menstruation, unspecified[ICD10: N92.6] Josefa TALAMANTES DO [facility] CPT-4: 54051 01/04/2017 ([id number]) PREV VISIT EST AGE 18-39 Diagnosis: Encounter for general adult medical examination without abnormal findings[ICD10: Z00.00] Diagnosis: Encounter for gynecological examination (general) (routine) without abnormal findings[ICD10: Z01.419] Diagnosis: Gastro-esophageal reflux disease without esophagitis[ICD10: K21.9] Diagnosis: Dysphagia, pharyngeal phase[ICD10: R13.13] Josefa TALAMANTES DO [facility] CPT-4: 28749 10/18/2016 ([id number]) OFFICE/OUTPATIENT VISIT EST Diagnosis: Irregular menstruation, unspecified[ICD10: N92.6] Josefa TALAMANTES DO [facility] CPT-4: 54757 10/12/2016 ([id number]) OFFICE/OUTPATIENT VISIT EST Diagnosis: Fever, unspecified[ICD10: R50.9] Diagnosis: Influenza due to identified novel influenza A virus with other respiratory manifestations[ICD10: J09.X2] Catrina TALAMANTES DO [facility] CPT-4: 97868 08/08/2016 ([id number]) OFFICE/OUTPATIENT VISIT EST Diagnosis: Irregular menstruation, unspecified[ICD10: N92.6] Josefa TALAMANTES DO [facility] CPT-4: 68615 07/25/2016 ([id number]) OFFICE/OUTPATIENT VISIT EST Diagnosis: Right upper quadrant pain[ICD10: R10.11] Diagnosis: Unspecified abdominal pain[ICD10: R10.9] Josefa TALAMANTES DO [facility] CPT-4: 79442 05/15/2016 ([id number]) OFFICE/OUTPATIENT VISIT EST Diagnosis: Irregular menstruation, unspecified[ICD10: N92.6] Josefa TALAMANTES DO [facility] CPT-4: 53192 05/03/2016 ([id number]) OFFICE/OUTPATIENT VISIT EST Diagnosis: Irregular menstruation, unspecified[ICD10: N92.6] Josefa TALAMANTES DO [facility] CPT-4: 87699 02/20/2016 OFFICE/OUTPATIENT VISIT EST Diagnosis: Cutaneous abscess of buttock[ICD10: L02.31] Kitty Caldera JOSEFA TALAMANTES DO [facility] CPT-4: 00712 12/23/2015 ([id number]) OFFICE/OUTPATIENT VISIT EST Diagnosis: Irregular menstruation, unspecified[ICD10: N92.6] Josefa TALAMANTES DO [facility] CPT-4: 77439 11/07/2015 ([id number]) OFFICE/OUTPATIENT VISIT EST Diagnosis: Irregular menstruation, unspecified[ICD10: N92.6] Josefa TALAMANTES DO [facility] CPT-4: 57382 08/01/2015 ([id number]) OFFICE/OUTPATIENT VISIT EST Diagnosis: Irregular menstruation, unspecified[ICD10: N92.6] Josefa TALAMANTES DO [facility] CPT-4: 69315 05/11/2015 ([id number]) OFFICE/OUTPATIENT VISIT EST Diagnosis: Irregular menstruation, unspecified[ICD10: N92.6] Josefa TALAMANTES DO [facility] CPT-4: 24410 02/16/2015 OFFICE/OUTPATIENT VISIT EST Diagnosis: SINUSITIS, ACUTE[ICD9: 461.9] Malgorzata TALAMANTES DO [facility] CPT-4: 72559 01/26/2015 ([id number]) OFFICE/OUTPATIENT VISIT EST Diagnosis: IRREGULAR MENSTRUATION[ICD9: 626.4] Josefa TALAMANTES DO [facility] CPT-4: 34301 11/29/2014 ([id number]) OFFICE/OUTPATIENT VISIT EST Diagnosis: IRREGULAR MENSTRUATION[ICD9: 626.4] Josefa TALAMANTES DO [facility] CPT-4: 81924 09/09/2014 ([id number]) OFFICE/OUTPATIENT VISIT EST Diagnosis: IRREGULAR MENSTRUATION[ICD9: 626.4] Diagnosis: General counseling and advice on contraceptive management[ICD9: V25.09] Diagnosis: Anxiety and depression[ICD9: 300.4] Malgorzata TALAMANTES DO [facility] CPT-4: 68105 06/16/2014 OFFICE/OUTPATIENT VISIT EST Diagnosis: Right upper quadrant pain[ICD9: 789.01] Malgorzata TALAMANTES DO [facility] CPT-4: 59940 01/28/2014 OFFICE/OUTPATIENT VISIT EST Diagnosis: Right upper quadrant pain[ICD9: 789.01] Malgorzata TALAMANTES DO [facility] CPT-4: 61767 12/10/2013 OFFICE/OUTPATIENT VISIT EST Diagnosis: Anxiety and depression[ICD9: 300.4] Malgorzata ALANIZ SMaria Teresa TALAMANTES DO [facility] CPT-4: 04201 10/20/2013 OFFICE/OUTPATIENT VISIT EST Diagnosis: Menorrhagia[ICD9: 626.2] Malgorzata CULVER [facility] CPT-4: 03728 10/07/2013 OFFICE/OUTPATIENT VISIT EST Diagnosis: IRREGULAR MENSTRUATION[ICD9: 626.4] Malgorzata TALAMANTES DO [facility] CPT-4: 80684 09/15/2013 OFFICE/OUTPATIENT VISIT EST Diagnosis: HEMATURIA NOS[ICD9: 599.70] Diagnosis: Abdominal discomfort in right upper quadrant[ICD9: 789.01] Malgorzata TALAMANTES DO [facility] CPT-4: 35706 06/24/2013 ([id number]) OFFICE/OUTPATIENT VISIT EST Diagnosis: ABDOMINAL PAIN[ICD9: 789.00] Diagnosis: GERD[ICD9: 530.81] Josefa TALAMANTES DO [facility] CPT-4: 23586 03/05/2013 OFFICE/OUTPATIENT VISIT EST Diagnosis: General counseling and advice on contraceptive management[ICD9: V25.09] Diagnosis: IRREGULAR MENSTRUATION[ICD9: 626.4] Malgorzata TALAMANTES [place] CPT-4: 61377 02/09/2013 ([id number]) OFFICE/OUTPATIENT VISIT EST Justine TALAMANTES DO [facility] CPT-4: 25207 09/08/2010 ([id number]) OFFICE/OUTPATIENT VISIT EST Justine TALAMANTES DO [facility] CPT-4: 91951 07/24/2010 Plan of Care Planned Activity Notes Codes Status Date Care Plan: Belle BOSE ADD ON TO LABS SENT ON 11/16/2019 Pending 11/17/2019 Visit Diagnosis Plan: Encounter for gyne cological examination (general) (routine) with abnormal findings Discussion: fasting labs to be completed this week at [facility]. order written and given to patient. [...] ICD-10 : R60.0 11/16/2019 Appointment: Keyanna Mejía [facility] [employer] [address] Annual Well Visit 11/16/2019 Visit Diagnosis Plan: Urethritis Discussion: Diflucan and topical nystatin ICD-9 : 597.80 ICD-10 : N34.2 07/07/2019 Visit Diagnosis Plan: History of renal stone Discussio n: Flomax Push water If not improving within 48hrs or if worsening then will need CT scan to assess for stone ICD-9 : V13.01 ICD-10 : Z87.442 07/07/2019 Appointment: Josefa Talamantes WPtel: [address] [place] [address] ACUTE ILLNESS 07/07/2019 Patient Education: nystatin- [employer] Coupon [id number] [email or web address] Completed 07/07/2019 Appointment: Josefa Talamantes WPtel: [address] [place] [address] UA 06/15/2019 Visit Diagnosis Plan: Dysuria Discussion: due to recur rent pain and worsening symptoms, rocephin 1 gm given in office. will send urine off for culture and call on saturday if any changes needed. instructed to push fluids through the w eekend and go to urgent care with any worsening. ICD-9 : 788.1 ICD-10 : R30.0 06/05/2019 Appointment: Keyanna Mejía [address] FOLLOW UP 06/05/2019 Visit Diagnosis Plan: [...] : M25.532 03/16/2019 Appointment: Keyanna Mejía [address] Hospital Follow Up 03/16/2019 Appointment: Josefa Talamantes WPtel: [address] [place] [address] [place] UA 03/02/2019 Appointment: Josefa Talamantes WPtel: [address] [place], [place] [phone] [place] INJECTION 02/16/2019 Appointment: Josefa Talamantes WPtel: [address] [place] [address] [place] INJECTION 05/21/2018 Visit Diagnosis Plan: Diseases [...] performed in office and negative. patient to roller picker depo prescription and bring back to office for injection. had pap october of 2016. not due until 2019 or patient turns 29. ICD-9 : 626.4 ICD-10 : N92.6 03/03/2018 Appointment: [facility] [place] AC[facility] 03/03/2018 Patient Education: Patient Medication Summary Completed 03/03/2018 Care Plan: US EXAM OF HEAD AND NECK thyroid LOIN C : 06847-9 Pending 03/03/2018 Appointment: Josefa Talamantes WPtel: [address] [place], [place] [phone] [place] CANCELED 02/27/2018 Appointment: Josefa Talamantes WPtel: [address] [place], [place] [phone] [place] INJECTION 11/26/2017 Patient Education: Patient Medication Summary Completed 11/26/2017 Appointment: Josefa Talamantes WPtel: [address] [place], [place] [phone] [place] INJECTION 08/27/2017 Patient Education: Patient Medication Summary Completed 08/27/2017 Appointment: Josefa Talamantes WPtel: [address] [place], [place] [id number] [place] INJECTION 06/06/2017 Patient Education: Patient Medication Summary Completed 06/06/2017 Appointment: Josefa Talamantes WPtel: [address] [place], [place] [id number] [place] INJECTION 01/04/2017 Patient Education: Patient Medication Summary Completed 01/04/2017 Appointment: Josefa Talamantes WPtel: [address] [place] [id number] [place] 11/19 lm `sl 11/21 lm `sl NO SHOW 11/22/19 Patient Education: Patient Medication Summary Completed 10/22/2016 Care Plan: US EXAM OF HEAD AND NECK Thyroid Ultrasound LOIN C : 14853-5 Pending 10/22/2016 Visit Diagnosis Plan: Gastro-esophageal reflux [...] : R13.13 10/18/2016 Appointment: Josefa Talamantes WPtel: [address] [place] [id number] [place] 6/7 lm ` Annual Well Visit 10/18/2016 Patient Education: Patient Medication Summary Completed 10/18/2016 Appointment: Josefa Talamantes WPtel: [address] [place], [place] [phone] [place] INJECTION 10/12/2016 Patient Education: Patient Medication Summary Completed 10/12/2016 Visit Diagnosis Plan: Influenza due to i dentified novel influenza A virus with other respiratory manifestations Discussion: Flu A positive Rx as above Supportive care otherwise Contagious precautions discussed Notify kids' provider of exposure for their instructions ICD-9 : 488.02 ICD-10 : J09.X2 08/08/2016 Appointment: Catrina Bran [address] [place], [place] [email or web address] ACUTE ILLNESS 08/08/2016 Patient Education: Patient Medication Summary Completed 08/08/2016 Appointment: Josefa Talamantes WPtel: [address] [place], [place] [phone] [place] INJECTION 07/25/2016 Patient Education: Patient Medication Summary Completed 07/25/2016 Visit Plan: Finish abx and then recultur e 48hrs after completion Add levsin and zorvolex 05/15/2016 Appointment: Josefa Talamantes WPtel: [address] [place], [place] [phone] [place] 05/14 ` 05/15 confirmed~ Hospital Follow Up 0 05/15/2016 Patient Education: Patient Medication Summary Completed 05/15/2016 Appointment: Catrina Bran [address] [place], [place] [id number] 05/09 admitted into the hospital last night~ ACUTE ILLNESS 05/09/2016 Appointment: Josefa Talamantes WPtel: [address] [place], [place] [phone] [place] INJECTION 05/03/2016 Patient Education: Patient Medication Summary Completed 05/03/2016 Appointment: Josefa Talamantes WPtel: [address] [place], [place] [phone] [place] INJECTION 02/20/2016 Patient Education: Patient Medication Summary Completed 02/20/2016 Visit Plan: ERx for Bactrim and Bactroba n Called to [facility] Ultram 50mg 1 po q 4-6 hours prn pain #20 Warm moist heat to area qid Watch for s/s of worsening, go to over weekend Discussed SE of meds including s/s of SJS which would require an ER visit C&S obtained 12/23/2015 Appointment: Kitty Caldera WPtel: [address] [place], [place] [phone] ACUTE ILLNESS 12/23/2015 Patient Education: Patient Medication Summary Completed 12/23/2015 Appointment: Josefa Talamantes WPtel: [address] [place], [place] [phone] [place] INJECTION 11/07/2015 Patient Education: Patient Medication Summary Completed 11/07/2015 Appointment: Josefa Talamantes WPtel: [address] [place], [place] [phone] [place] INJECTION 08/01/2015 Patient Education: Patient Medication Summary Completed 08/01/2015 Appointment: Josefa Talamantes WPtel: [address] [place], [place] [id number] [place] INJECTION 05/11/2015 Patient Education: Patient Medication Summary Completed 05/11/2015 Appointment: Malgorzata Islas WPtel: [address] [place], [place] [phone] [place] PAP 04/05/2015 Appointment: Josefa Talamantes WPtel: [address] [place], [place] [phone] [place] INJECTION 02/16/2015 Patient Education: Patient Medication Summary Completed 02/16/2015 Visit Plan: Daily nasal saline rinses Fl onase nasal spray and daily Zyrtec Medrol dose pack Z-jhonathan as directed 01/26/2015 Appointment: Malgorzata Islas WPtel: [address] [place], [place] [phone] ACUTE ILLNESS 01/26/2015 Patient Education: Patient Medication Summary Completed 01/26/2015 Appointment: Josefa Talamantes WPtel: [address] [place], [place] [phone] [place] INJECTION 11/29/2014 Patient Education: Patient Medication Summary Completed 11/29/2014 Appointment: Josefa Talamantes WPtel: [address] [place], [place] [phone] INJECTION 09/09/2014 Patient Education: Patient Medication Summary Completed 09/09/2014 Appointment: Malgorzata Islas WPtel: [address] [place], [place] [phone] FOLLOW UP 06/16/2014 Patient Education: Patient Medication Summary Completed 06/16/2014 Appointment: Malgorzata Islas WPtel: [address] [place], [place] [phone] 06/02/14 appointment scheduled 06/03/14 no showed PAP 06/03/2014 Appointment: Malgorzata Islas WPtel: [address] [place], [place] [phone] FOLLOW UP 01/28/2014 Patient Education: Patient Medication Summary Completed 01/28/2014 Care Plan: COM[place] : [address]-4 Ordered 01/28/2014 Care Plan: AMYLASE Pending 4 Appointment: Malgorzata Islas WPtel: [address] [place], [place] [phone] [place] FOLLOW UP 12/10/2013 Patient Education: Patient Medication Summary Completed 12/10/2013 Appointment: Malgorzata Islas WPtel: [address] [place], [place] [phone] [[email or web address]] 11/11 vm 11/12 No Show FOLLOW UP 11/12/2013 Appointment: Malgorzata Islas WPtel: [address] [place], [place] [phone] [place] FOLLOW UP 10/20/2013 Patient Education: Patient Medication Summary Completed 10/20/2013 Visit Plan: Quantitative Hcg and CBC tod ay. Transvaginal/Transabdominal sonogram stat Discussed with RAIL ASSEMBLER and [facility] 343 so will recheck in 1week as long as not worsening 10/07/2013 Appointment: Malgorzata Islas WPtel: [address] [place] [address] ACUTE ILLNESS 10/07/2013 Patient Education: Patient Medication Summary Completed 10/07/2013 Appointment: Malgorzata Islas WPtel: [address] [place] [address] ACUTE ILLNESS 09/15/2013 Patient Education: Patient Medication Summary Completed 09/15/2013 Appointment: Malgorzata Islas WPtel: [address] [place], [place] [id number] ACUTE ILLNESS 06/24/2013 Patient Education: Patient Medication Summary Completed 06/24/2013 Appointment: Malgorzata Islas WPtel: [address] [place], [place] [phone] [place] appt was scheduled today then patient no showed the visit ACUTE ILLNESS 05/21/2013 Visit Plan: Check CMP, CBC, UA CT scan o f abdomen Omeprazole 03/05/2013 Appointment: Josefa Talamantes WPtel: [address] [place], [place] [email or web address] ACUTE ILLNESS 03/05/2013 Appointment: Josefa Talamantes WPtel: [address] [place], [place] [phone] 03/02 canceled, wrong patient FOLLOW UP Patient Education: Patient Medication Summary Completed 03/05/2013 Appointment: Malgorzata Islasteashely: [address] [place] [address] ACUTE ILLNESS 02/09/2013 Patient Education: Patient Medication Summary Completed 02/09/2013 Appointment: Justine Ortega WPtel: [address] [place] [address] ACUTE ILLNESS 09/08/2010 Patient Education: Patient Medication Summary Completed 09/08/2010 Appointment: Jusitne Ortega WPtel: [address] [place] [address] [place] PAP 08/08/2010 Appointment: Justine Ortega WPtel: [address] [place] [address] ACUTE ILLNESS 07/24/2010 Patient Education: Patient Medication Summary Completed 07/24/2010 Visit Plan: All warts shaved with 11-rekha de scalpel and then cryotherapy x3 Will followup with DNCB treatment 03/08/2010 Appointment: Josefa Talamantes WPtel: [address] [place] [address] ACUTE ILLNESS 03/08/2010 Patient Education: Patient Medication Summary Completed 03/08/2010 Appointment: Josefa Talamantes WPtel: [address] [place] [address] [place] PAP 09/14/2009 Referral: Roney Galloway WPtel: [address] [address] [place] Referral Initiated Referral: Brian Floyd WPtel: [address] [id number] [place] Referral Initiated Referral: Referral Initiated Instructions [...] CBC today. Transvaginal/Transabdominal sonogram stat Discussed with RAIL ASSEMBLER and [facility] 343 so will recheck in [...]
[2019-12-11] MEDS ORDERED: cefTRIAXone FOR IV USE 1,000 MG in WATER (STERILE) FOR INJECTION 10 ML IV ONE (22:00)
--- OUTSIDE RECORDS SUMMARY | 2019-12-11 22:00 | XMS REPORT | CCD ---
Author Author Brenda Talamantes D.O. Organization JOSEFA TALAMANTES DO [facility] Address [address] [place] [address] Phone Care Team Providers Care Facing End Trimmer Name Role Phone Josefa Talamantes D.O., PP Unavailable CCM Unavailable Summary Purpose Interface Exchange Insurance Providers Payer name Policy type / Coverage type Covered libertarian ID Effective Begin Date Effective End Date [facility] [facility] Commercial Insurance [id number] Unknown Family History Family History data not found Social History Social History Element Codes Description Effective Dates Tobacco history SNOMED CT: 577543054 Unknown if ever smoked 01/12 Allergies, Adverse Reactions, Alerts Substance Reaction Codes Entered Date Inactivated Date Status * NO KNOWN FOOD ALLERGIES Unknown 03/08/2010 No Inactiv e Date Active * NO KNOWN ENVIRONMENTAL ALLERGIES Unknown 03/08/2010 N o Inactive Date Active Problems Condition Codes Effective Dates Condition Status Bilateral lower extremity edema ICD-9: 782.3 ICD-10: [...] mass ICD-9: 611.72 ICD-10: N63.20 11/16/2019 Active Vaginitis ICD-9: 616.10 ICD-10: N76.0 11/16/2019 Active History of renal stone ICD-9: [...] Start Date Stop Date Status Fill Instructions Depo-Provera 150 mg/mL intramuscular suspension RxNorm: 1000 128 1 Application Intramuscular 11/16/2019 No Stop Date Active Diflucan 100 mg tablet RxNorm: 344627 1 Tablet(s) Oral QD 07/07/2019 07/14/2019 Inactive Flomax 0.4 mg capsule RxNorm: 282044 1 Capsule(s) Oral QPM for kidney stone 07/07/2019 08/06/2019 Inactive nystatin 100,000 unit/gram topical cream RxNorm: 672070 Application Topical two times a day to periurethral area 07/07/2019 11/16/2019 Inactive Bactrim DS 800 mg-160 mg tablet RxNorm: 231012 1 Tablet(s) Oral two times a day 06/08/2019 06/13/2019 Inactive Bactrim DS 800 mg-160 mg tablet RxNorm: 050738 1 Tablet(s) Oral two times a day 06/08/2019 06/07/2019 Inactive ibuprofen 800 mg tablet RxNorm: 193832 1 Tablet(s) Oral Q8H as needed 03/16/2019 06/05/2019 Inactive Cipro 500 mg tablet RxNorm: 771226 1 Tablet(s) Oral two times a day 03/04/2019 03/11/2019 Inactive Cipro 500 mg tablet RxNorm: 835301 1 Tablet(s) Oral two times a day 03/04/2019 03/03/2019 Inactive Macrobid 100 mg capsule RxNorm: 632035 1 Capsule(s) Oral two ti mes a day 02/16/2019 02/15/2019 Inactive Macrobid 100 mg capsule RxNorm: 512463 1 Capsule(s) Oral two ti mes a [...] 11/24/2017 Inactive Pepcid 40 mg tablet RxNorm: 580945 1 Tablet(s) PO QD 10/18/201603/02 Inactive Depo-Provera 150 mg/mL intramuscular suspension RxNorm: 1000 128 Milliliter(s) 1 Milliliter(s) IM 10/10/2016 06/04/2017 Inactive Tamiflu 75 mg capsule RxNorm: 287281 1 Capsule(s) PO BID 08/08/2016 0 08/12/2016 Inactive Levsin 0.125 mg tablet RxNorm: 3695546 1 Tablet(s) PO TID for fl ank pain 05/15/2016 10/17/2016 Inactive Bactrim DS 800 mg-160 mg tablet RxNorm: 017661 1 Tablet(s) PO BID 0 12/23/2015 01/01/2016 Inactive mupirocin 2 % topical ointment RxNorm: 167662 Application TOP TID 0 12/23/2015 12/29/2015 Inactive Depo-Provera 150 mg/mL intramuscular suspension RxNorm: 1000 128 Milliliter(s) 1 Milliliter(s) IM 11/08/2015 10/09/2016 Inactive Xanax 0.25 mg tablet RxNorm: 435867 TAKE ONE-HALF TO ON E TABLET BY MOUTH NEEDED FOR ANXIETY 04/11/2015 05/10/2015 Inactive Generic For:X ANAX 0.25 MG TABLET 04/11/2015 2:54:57 PM Depo-Provera 150 mg/mL intramuscular suspension RxNorm: 1000 128 Milliliter(s) 1 Milliliter(s) IM 02/15/2015 11/07/2015 Inactive azithromycin 250 mg tablet RxNorm: 742471 2 Tablet(s) P O today, then one tablet on days 2 - 5 01/26/2015 12/22/2015 Inactive Medrol (Jhonathan) 4 mg tablets in a dose pack RxNorm: 690515 Tablet(s) P O 01/26/2015 12/22/2015 Inactive Depo-Provera 150 mg/mL intramuscular suspension RxNorm: 1000 128 1 Milliliter(s) IM 09/06/2014 02/15/2015 Inactive Xanax 0.25 mg tablet RxNorm: 925921 1/2 - 1 Tablet(s) PO as nee ded for anxiety 06/16/2014 04/12/2015 Inactive Zoloft 50 mg tablet RxNorm: 331576 1 Tablet(s) PO QD 06/16/201412/21 Inactive Flexeril [...] 2014 Inactive Xanax 0.25 mg tablet RxNorm: 351914 1/2 - 1 Tablet(s) PO as nee ded for anxiety 01/28/2014 06/15/2014 Inactive naproxen 500 mg tablet RxNorm: 181570 1 Tablet(s) PO BID 12/10/2013 0 01/08/2014 Inactive Zoloft 50 mg tablet RxNorm: 664220 1 Tablet(s) PO QD 12/10/201304/08 Inactive Xanax 0.25 mg tablet RxNorm: 723587 1/2 - 1 Tablet(s) PO as nee ded for anxiety 12/10/2013 01/27/2014 Inactive Xanax 0.25 mg tablet RxNorm: 827629 1 Tablet(s) PO Q8H 10/20/2013 Inactive Zoloft 50 mg tablet RxNorm: 337424 1/2 Tablet(s) PO x 6 days then on1 tablet daily 10/20/2013 11/18/2013 Inactive Loestrin Fe 06/01 (28) 1 mg-20 mcg tablet RxNorm: 5049194 1 Table t(s) PO QD 10/20/2013 05/03/2014 Inactive phenazopyridine 100 mg tablet RxNorm: 9307891 1 Tablet(s) PO Q8H 06/26/2013 Inactive Macrobid 100 mg capsule RxNorm: 098887 1 Capsule(s) PO BID 06/25/19 14 07/04/2013 Inactive phenazopyridine 100 mg tablet RxNorm: 2304097 1 Tablet(s) PO Q8H 06/24/2013 Inactive Macrobid 100 mg capsule RxNorm: 894018 1 Capsule(s) PO BID 07/25/1908/02/2010 Inactive Apri 0.15 mg-30 mcg tablet RxNorm: 222007 1 Tablet(s) PO QD As directed. No Start Date 06/23/2013 Inactive omeprazole 40 mg capsule,delayed release RxNorm: 930298 1 Capsule(s) PO QD for stomach No Start Date 06/23/2013 Inactive naproxen 500 mg tablet RxNorm: 350035 1 Tablet(s) PO BID No Start D ate 06/15/2014 Inactive hydrocodone 10 mg-acetaminophen 325 mg tablet RxNorm: 429321 Tablet(s) PO as needed for pain No Start Date 12/22/2015 Inactive Zoloft 50 mg tablet RxNorm: 798078 1 Tablet(s) PO QD No Start Date Inactive hydrocodone 5 mg-acetaminophen 325 mg tablet RxNorm: 739303 1 Tablet(s) PO QID as needed for pain No Start Date 09/14/2013 Inactive Medication Administered No Medication Administered data Immunizations No Immunization data Results Observation Observation Code Item Item Code Result Date S ervice Location VAG PROF [id number] PH TNP:Improper Specimen 020 Unknown VAG PROF [id number] Whiff TNP:Improper Specimen 020 Unknown VAG PROF [id number] WBC Vaginal TNP:Improper Specimen 11/15 Unknown VAG PROF [id number] ENDOSCOPY TECH Lactobac TNP:Improper Specimen 11/15 Unknown VAG PROF [id number] Clue Cells TNP:Improper Specimen 2019 Unknown VAG PROF [id number] ENDOSCOPY TECH Curved GNR TNP:Improper Specimen 10/2019 Unknown VAG PROF [id number] Yeast Vaginal TNP:Improper Specimen 10/2019 Unknown VAG PROF [id number] ENDOSCOPY TECH SM GVB TNP:Improper Specimen 020 Unknown VAG PROF [id number] Trichomonas TNP:Improper Specimen 11/15 Unknown VAG PROF [id number] ENDOSCOPY TECH BV Stain TNP:Improper Specimen 11/15 Unknown VAG PROF [id number] ENDOSCOPY TECH Intp TNP:Improper Specimen 020 Unknown VAG PROF [id number] Conf BV Stain TNP:Improper Specimen 10/2019 Unknown LIPASE 01613 LIPASE 14 IU/L 01/28/2014 Unknown AMYLASE 81171 AMYLASE 42 IU/L 01/28/2014 Unknown COMPLETE BLOOD COUNT [id number] WBC 6.5 10e9/L 01/29/20 14 Unknown COMPLETE BLOOD COUNT [id number] RBC 4.54 10e12/L 2013 Unknown COMPLETE BLOOD COUNT [id number] HGB 12.1 g/dL 4 Unknown COMPLETE BLOOD COUNT [id number] HCT DET 38.0 % 4 Unknown COMPLETE BLOOD COUNT [id number] MCV 83.7 fL 4 Unknown COMPLETE BLOOD COUNT [id number] MCH 26.7 pg 4 Unknown COMPLETE BLOOD COUNT [id number] MCHC 31.8 g/dL 4 Unknown COMPLETE BLOOD COUNT [id number] PLT 218 10e9/L 01/29/20 14 Unknown COMPLETE BLOOD COUNT [id number] MPV 12.8 fL 4 Unknown COMPLETE BLOOD COUNT [id number] RACHNA % 56.5 % 4 Unknown COMPLETE BLOOD COUNT [id number] LY % 32.3 % 4 Unknown COMPLETE BLOOD COUNT [id number] MON % 8.6 % 4 Unknown COMPLETE BLOOD COUNT [id number] EOS % 2.1 % 4 Unknown COMPLETE BLOOD COUNT [id number] BASO % 0.5 % 4 Unknown COMPLETE BLOOD COUNT [id number] RDW 18.4 % 4 Unknown COMPLETE BLOOD COUNT [id number] ABS RACHNA 3.67 10e9/L 014 Unknown COMPLETE BLOOD COUNT [id number] ABS LYMPH 2.10 10e9/L 014 Unknown COMPLETE BLOOD COUNT [id number] ABS MONO 0.56 10e9/L 014 Unknown COMPLETE BLOOD COUNT [id number] ABS EOS 0.14 10e9/L 014 Unknown COMPLETE BLOOD COUNT [id number] ABS BASO 0.03 10e9/L 014 Unknown COMPLETE BLOOD COUNT [id number] RDW-SD 55.5 fL 4 Unknown COMPREHENSIVE METABOLIC 95370 AST 13 U/L 2013 Unknown COMPREHENSIVE METABOLIC 51072 ALT 7 IU/L 2013 Unknown COMPREHENSIVE METABOLIC 83194 BUN 8 MG/DL 2013 Unknown COMPREHENSIVE METABOLIC 72269 ALBUMIN 4.5 GM/DL 2013 Unknown COMPREHENSIVE METABOLIC 20304 CHLORIDE 106 MMOL/L 01/28 Unknown COMPREHENSIVE METABOLIC 28025 BILI TOT 0.4 MG/DL 2013 Unknown COMPREHENSIVE METABOLIC 75410 ALK PHOS 55 U/L 2013 Unknown COMPREHENSIVE METABOLIC 00410 SODIUM 138 MMOL/L 01/28 Unknown COMPREHENSIVE METABOLIC 82751 CREATININE 0.73 MG/DL 01/11 Unknown COMPREHENSIVE METABOLIC 11677 CALCIUM 9.9 MG/DL 2013 Unknown COMPREHENSIVE METABOLIC 90182 POTASSIUM 3.8 MMOL/L 01/28 Unknown COMPREHENSIVE METABOLIC 77783 PROT TOT 7.4 GM/DL 2013 Unknown COMPREHENSIVE METABOLIC 22718 Glucose 96 MG/DL 2013 Unknown COMPREHENSIVE METABOLIC 62100 BICARB 27 MMOL/L 2013 Unknown COMPREHENSIVE METABOLIC 10606 ANION GAP 5 MEQ/L 2013 Unknown GFR CALC [id number] GFR AA >60 ML/MIN 01/28/2014 Unknown GFR CALC 4197744 GFR NON-AA >60 ML/MIN 01/28/2014 Unknown Procedures Procedure Codes Date URINE TEST CPT-4: 31646 11/16/2019 SPECIMEN HANDLING OFFICE-LAB CPT-4: 68577 11/16/2019 URINE CULTURE/ COLONY COUNT CPT-4: 28088 06/15/2019 URINALYSIS NONAUTO W/O SCOPE CPT-4: 27750 06/05/2019 CEFTRIAXONE SODIUM INJECTION CPT-4: J0696 06/05/2019 THER/PROPH/DIAG INJ SC/IM CPT-4: 68860 06/05/2019 URINE CULTURE/ COLONY COUNT CPT-4: 06274 06/05/2019 URINE CULTURE/ COLONY COUNT CPT-4: 89242 03/02/2019 THER/PROPH/DIAG INJ SC/IM CPT-4: 69782 02/16/2019 URINE CULTURE/ COLONY COUNT CPT-4: 35060 02/16/2019 URINALYSIS NONAUTO W/O SCOPE CPT-4: 47136 02/16/2019 URINE TEST CPT-4: 26538 02/16/2019 THER/PROPH/DIAG INJ SC/IM CPT-4: 32829 05/21/2018 THER/PROPH/DIAG INJ SC/IM CPT-4: 54398 11/26/2017 THER/PROPH/DIAG INJ SC/IM CPT-4: 53034 08/27/2017 THER/PROPH/DIAG INJ SC/IM CPT-4: 26747 06/06/2017 URINALYSIS NONAUTO W/O SCOPE CPT-4: 94617 06/06/2017 GC/CHLAMYDIA DNA (BD-ProbeTe) CPT-4: 23746|73580 8 URINE CULTURE/ COLONY COUNT CPT-4: 75302 06/06/2017 THER/PROPH/DIAG INJ SC/IM CPT-4: 51070 01/04/2017 SPECIMEN HANDLING OFFICE-LAB CPT-4: 06622 10/18/2016 THER/PROPH/DIAG INJ SC/IM CPT-4: 25557 10/12/2016 INFLUENZA ASSAY W/OPTIC CPT-4: 45362 08/08/2016 THER/PROPH/DIAG INJ SC/IM CPT-4: 50627 07/25/2016 THER/PROPH/DIAG INJ SC/IM CPT-4: 15855 05/03/2016 THER/PROPH/DIAG INJ SC/IM CPT-4: 78594 02/20/2016 URINE TEST CPT-4: 34681 02/20/2016 AEROBIC WOUND CULTURE & STN CPT-4: 98696 12/23/2015 THER/PROPH/DIAG INJ SC/IM CPT-4: 18327 11/07/2015 URINE TEST CPT-4: 89182 11/07/2015 THER/PROPH/DIAG INJ SC/IM CPT-4: 28950 08/01/2015 THER/PROPH/DIAG INJ SC/IM CPT-4: 11079 05/11/2015 THER/PROPH/DIAG INJ SC/IM CPT-4: 30367 02/16/2015 THER/PROPH/DIAG INJ SC/IM CPT-4: 19278 11/29/2014 THER/PROPH/DIAG INJ SC/IM CPT-4: 63799 09/09/2014 URINE TEST CPT-4: 05210 06/16/2014 THER/PROPH/DIAG INJ SC/IM CPT-4: 99438 06/16/2014 ROUTINE VENIPUNCTURE CPT-4: 83640 10/07/2013 COMPLETE CBC W/AUTO DIFF WBC CPT-4: 63276 10/07/2013 CHORIONIC GONADOTROPIN TEST CPT-4: 16099 10/07/2013 URINE TEST CPT-4: 77670 09/15/2013 URINALYSIS NONAUTO W/O SCOPE CPT-4: 85600 06/24/2013 URINE CULTURE/ COLONY COUNT CPT-4: 96424 06/24/2013 URINE TEST CPT-4: 05403 09/08/2010 URINALYSIS NONAUTO W/O SCOPE CPT-4: 76493 07/24/2010 URINE CULTURE/ COLONY COUNT CPT-4: 32415 07/24/2010 DESTRUCT PREMALG LESION (Cryosurgery) CPT-4: 62308 DESTRUCT PREMALG LES 2-14 CPT-4: 54823 03/08/2010 Vital Signs Date Vital 11/16/2019 Blood Pressure 1: 119/75 Code: 8480-6 BMI: 24.4 Code: 83161-7 Heart Rate 1: 112 bpm Height: 5'9" Respiratory Rate: 15 bpm SpO2: 98% Tempera ture: 36.8 (C) / 98.2 (F) Weight: 165 lbs 07/07/2019 Blood Pressure 1: 126/82 Code: 8480-6 Heart Rate 1: 100 bpm SpO2: 99% Temperature: 36.8 (C) / 98.2 (F) 06/05/2019 Blood Pressure 1: 131/82 Code: 8480-6 BMI: 26.3 Code: 57423-5 Heart Rate 1: 109 bpm Height: 5'9" Respiratory Rate: 16 bpm SpO2: 99% Tempera ture: 36.7 (C) / 98.1 (F) Weight: 178 lbs 03/16/2019 Blood Pressure 1: 132/86 Code: 8480-6 Heart Rate 1: 73 bpm SpO2: 99% Temperature: 36.6 (C) / 97.9 (F) Weight: 158 lbs 03/03/2018 Blood Pressure 1: 120/88 Code: 8480-6 BMI: 23.9 Code: 40443-4 Heart Rate 1: 81 bpm Height: 5'9" Respiratory Rate: 18 bpm SpO2: 99% Tempera ture: 36.1 (C) / 97.0 (F) Weight: 162 lbs 10/18/2016 Blood Pressure 1: 108/78 Code: 8480-6 BMI: 22.6 Code: 06081-5 Heart Rate 1: 100 bpm Height: 5'9" Respiratory Rate: 20 bpm SpO2: 98% Tempera ture: 37.1 (C) / 98.8 (F) Weight: 153 lbs 08/08/2016 Blood Pressure 1: 114/78 Code: 8480-6 Heart Rate 1: 102 bpm Respiratory Rate: 20 bpm SpO2: 98% Temperature: 36.4 (C) / 97.6 (F) We ight: 152 lbs 05/15/2016 Blood Pressure 1: 124/80 Code: 8480-6 BMI: 23.2 Code: 61299-5 Heart Rate 1: 100 bpm Height: 5'9" Respiratory Rate: 20 bpm Temperature: 37 .0 (C) / 98.6 (F) Weight: 157 lbs 12/23/2015 Blood Pressure 1: 124/78 Code: 8480-6 BMI: 23.0 Code: 25708-4 Heart Rate 1: 92 bpm Height: 5'9" Respiratory Rate: 20 bpm SpO2: 97% Tempera ture: 36.9 (C) / 98.5 (F) Weight: 156 lbs 01/26/2015 Blood Pressure 1: 118/78 Code: 8480-6 BMI: 21.3 Code: 43500-4 Heart Rate 1: 100 bpm Height: 5'9" Respiratory Rate: 20 bpm SpO2: 97% Tempera ture: 36.6 (C) / 97.8 (F) Weight: 144 lbs 06/16/2014 Blood Pressure 1: 118/78 Code: 8480-6 BMI: 23.5 Code: 35730-9 Heart Rate 1: 78 bpm Height: 5'9" Respiratory Rate: 18 bpm Temperature: 36 .1 (C) / 97.0 (F) Weight: 159 lbs 01/28/2014 Blood Pressure 1: 12478 Code: 8480-6 BMI: 23.2 Code: 57952-2 Heart Rate 1: 88 bpm Height: 5'9" Respiratory Rate: 22 bpm Temperature: 36 .1 (C) / 97.0 (F) Weight: 157 lbs 12/10/2013 Blood Pressure 1: 124/70 Code: 8480-6 BMI: 23.0 Code: 69075-4 Heart Rate 1: 82 bpm Height: 5'9" Respiratory Rate: 20 bpm Temperature: 36 .2 (C) / 97.2 (F) Weight: 156 lbs 10/20/2013 Blood Pressure 1: 118/82 Code: 8480-6 Heart Rate 1: 84 bpm Respiratory Rate: 22 bpm Temperature: 36.5 (C) / 97.7 (F) Weight: 150 lbs 10/07/2013 Blood Pressure 1: 120/80 Code: 8480-6 BMI: 22.2 Code: 04045-8 Heart Rate 1: 68 bpm Height: 5'9" Respiratory Rate: 22 bpm Temperature: 36 .2 (C) / 97.2 (F) Weight: 150 lbs 09/15/2013 Blood Pressure 1: 118/68 Code: 8480-6 BMI: 22.0 Code: 85411-5 Heart Rate 1: 78 bpm Height: 5'9" Respiratory Rate: 20 bpm Temperature: 36 .1 (C) / 97.0 (F) Weight: 149 lbs 06/24/2013 Blood Pressure 1: 112/74 Code: 8480-6 Heart Rate 1: 74 bpm Respiratory Rate: 20 bpm Temperature: 36.6 (C) / 97.9 (F) Weight: 150 lbs 03/05/2013 Blood Pressure 1: 126/88 Code: 8480-6 BMI: 23.5 Code: 01166-9 Heart Rate 1: 80 bpm Height: 5'9" Respiratory Rate: 20 bpm Temperature: 36 .6 (C) / 97.9 (F) Weight: 159 lbs 02/09/2013 Blood Pressure 1: 110/68 Code: 8480-6 BMI: 21.9 Code: 44140-3 Heart Rate 1: 74 bpm Height: 5'9" Respiratory Rate: 22 bpm Temperature: 36 .8 (C) / 98.2 (F) Weight: 148 lbs 09/08/2010 Blood Pressure 1: 124/90 Code: 8480-6 BMI: 21.4 Code: 58614-9 Height: 5'10" Temperature: 36.4 (C) / 97.6 [...] painful Encounters Encounter Performer Location Codes Date (70051) PREV VISIT EST AGE 18-39 Diagnosis: Encounter for gynecological examination (general) (routine) with abnormal findings[ICD10: Z01.411] Diagnosis: Encounter for general adult medical examination without abnormal findings[ICD10: Z00.00] Diagnosis: Vaginitis[ICD10: N76.0] Diagnosis: Left breast mass[ICD10: N63.20] Diagnosis: Dense breast tissue[ICD10: R92.2] Diagnosis: Bilateral lower extremity edema[ICD10: R60.0] Diagnosis: control counseling[ICD10: Z30.09] Keyanna TALAMANTES DO [facility] CPT-4: 33572 11/16/2019 ([id number]) OFFICE/OUTPATIENT VISIT EST Diagnosis: Urethritis[ICD10: N34.2] Diagnosis: History of renal stone[ICD10: Z87.442] Josefa TALAMANTES Mebelrama [facility] CPT-4: 90669 07/07/2019 ([id number]) NURSE/OUTPATIENT VISIT EST Diagnosis: Urinary tract infection[ICD10: N39.0] Josefa Oneilgaetanonena MELANIA NOLVIA Waylon TALAMANTES Mebelrama [facility] CPT-4: 24187 06/15/2019 ([id number]) OFFICE/OUTPATIENT VISIT EST Diagnosis: Dysuria[ICD10: R30.0] Diagnosis: Pelvic pain in female[ICD10: R10.2] Keyanna TALAMANTES Mebelrama [facility] CPT-4: 39660 06/05/2019 ([id number]) OFFICE/OUTPATIENT VISIT EST Diagnosis: Left wrist pain[ICD10: M25.532] Diagnosis: Swelling of left upper extremity[ICD10: M79.89] Keyanna TALAMANTES Mebelrama [facility] CPT-4: 83788 03/16/2019 ([id number]) NURSE/OUTPATIENT VISIT EST Diagnosis: Urinary tract infection[ICD10: N39.0] Josefa Oneilgaetanonena MELANIA NOLVIA Waylon TALAMANTES Mebelrama [facility] CPT-4: 77075 03/02/2019 ([id number]) NURSE/OUTPATIENT VISIT EST Diagnosis: Irregular menstruation, unspecified[ICD10: N92.6] Diagnosis: Urinary tract infection[ICD10: N39.0] Josefa Thadmamadou VELÁZQUEZ NOLVIA Waylon ONEILNDNENA [facility] CPT-4: 74919 02/16/2019 ([id number]) NURSE/OUTPATIENT VISIT EST Diagnosis: Irregular menstruation, unspecified[ICD10: N92.6] Josefa TALAMANTES DO [facility] CPT-4: 56460 05/21/2018 ([id number]) OFFICE/OUTPATIENT VISIT EST Diagnosis: Irregular menstruation, unspecified[ICD10: N92.6] Diagnosis: Diseases of lips[ICD10: K13.0] Diagnosis: 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] Keyanna TALAMANTES DO [facility] CPT-4: 43980 03/03/2018 ([id number]) NURSE/OUTPATIENT VISIT EST Diagnosis: Irregular menstruation, unspecified[ICD10: N92.6] Josefa TALAMANTES DO [facility] CPT-4: 24148 11/26/2017 ([id number]) OFFICE/OUTPATIENT VISIT EST Diagnosis: Irregular menstruation, unspecified[ICD10: N92.6] Josefa TALAMANTES DO [facility] CPT-4: 80700 08/27/2017 ([id number]) OFFICE/OUTPATIENT VISIT EST Diagnosis: Dysuria[ICD10: R30.0] Diagnosis: Irregular menstruation, unspecified[ICD10: N92.6] Josefa TALAMANTES DO [facility] CPT-4: 55731 06/06/2017 ([id number]) OFFICE/OUTPATIENT VISIT EST Diagnosis: Irregular menstruation, unspecified[ICD10: N92.6] Josefa TALAMANTES DO [facility] CPT-4: 93274 01/04/2017 ([id number]) PREV VISIT EST AGE 18-39 Diagnosis: Encounter for general adult medical examination without abnormal findings[ICD10: Z00.00] Diagnosis: Encounter for gynecological examination (general) (routine) without abnormal findings[ICD10: Z01.419] Diagnosis: Gastro-esophageal reflux disease without esophagitis[ICD10: K21.9] Diagnosis: Dysphagia, pharyngeal phase[ICD10: R13.13] Josefa TALAMANTES DO [employer] CPT-4: 05186 10/18/2016 ([id number]) OFFICE/OUTPATIENT VISIT EST Diagnosis: Irregular menstruation, unspecified[ICD10: N92.6] [facility] CPT-4: 66699 10/12/2016 ([id number]) OFFICE/OUTPATIENT VISIT EST Diagnosis: Fever, unspecified[ICD10: R50.9] Diagnosis: Influenza due to identified novel influenza A virus with other respiratory manifestations[ICD10: J09.X2] Catrina TALAMANTES DO [facility] CPT-4: 34876 08/08/2016 ([id number]) OFFICE/OUTPATIENT VISIT EST Diagnosis: Irregular menstruation, unspecified[ICD10: N92.6] Josefa TALAMANTES DO [facility] CPT-4: 53911 07/25/2016 ([id number]) OFFICE/OUTPATIENT VISIT EST Diagnosis: Right upper quadrant pain[ICD10: R10.11] Diagnosis: Unspecified abdominal pain[ICD10: R10.9] Josefa TALAMANTES DO [facility] CPT-4: 06275 05/15/2016 ([id number]) OFFICE/OUTPATIENT VISIT EST Diagnosis: Irregular menstruation, unspecified[ICD10: N92.6] Josefa TALAMANTES DO [facility] CPT-4: 52491 05/03/2016 ([id number]) OFFICE/OUTPATIENT VISIT EST Diagnosis: Irregular menstruation, unspecified[ICD10: N92.6] Josefa TALAMANTES DO [facility] CPT-4: 14300 02/20/2016 OFFICE/OUTPATIENT VISIT EST Diagnosis: Cutaneous abscess of buttock[ICD10: L02.31] Kitty Caldera JOSEFA TALAMANTES [facility] CPT-4: 19460 12/23/2015 ([id number]) OFFICE/OUTPATIENT VISIT EST Diagnosis: Irregular menstruation, unspecified[ICD10: N92.6] Josefa TALAMANTES DO [facility] CPT-4: 11911 11/07/2015 ([id number]) OFFICE/OUTPATIENT VISIT EST Diagnosis: Irregular menstruation, unspecified[ICD10: N92.6] Josefa TALAMANTES DO [facility] CPT-4: 36268 08/01/2015 ([id number]) OFFICE/OUTPATIENT VISIT EST Diagnosis: Irregular menstruation, unspecified[ICD10: N92.6] Josefa TALAMANTES [facility] CPT-4: 75175 05/11/2015 ([id number]) OFFICE/OUTPATIENT VISIT EST Diagnosis: Irregular menstruation, unspecified[ICD10: N92.6] Josefa TALAMANTES DO [facility] CPT-4: 72413 02/16/2015 OFFICE/OUTPATIENT VISIT EST Diagnosis: SINUSITIS, ACUTE[ICD9: 461.9] Malgorzata TALAMANTES DO [facility] CPT-4: 43318 01/26/2015 ([id number]) OFFICE/OUTPATIENT VISIT EST Diagnosis: IRREGULAR MENSTRUATION[ICD9: 626.4] Josefa TALAMANTES [facility] CPT-4: 76838 11/29/2014 ([id number]) OFFICE/OUTPATIENT VISIT EST Diagnosis: IRREGULAR MENSTRUATION[ICD9: 626.4] Josefa TALAMANTES [facility] CPT-4: 80201 09/09/2014 ([id number]) OFFICE/OUTPATIENT VISIT EST Diagnosis: IRREGULAR MENSTRUATION[ICD9: 626.4] Diagnosis: General counseling and advice on contraceptive management[ICD9: V25.09] Diagnosis: Anxiety and depression[ICD9: 300.4] Malgorzata VillanuevaEringregoriosangita ALIE ALANIZ SMaria Teresa WINCHESTERER [facility] CPT-4: 39915 06/16/2014 OFFICE/OUTPATIENT VISIT EST Diagnosis: Right upper quadrant pain[ICD9: 789.01] Malgorzata VillanuevaEringregoriosangita JOSEFA ONEILNDER [facility] CPT-4: 80136 01/28/2014 OFFICE/OUTPATIENT VISIT EST Diagnosis: Right upper quadrant pain[ICD9: 789.01] Malgorzata VillanuevaErinjuanjo ONEILNDER [facility] CPT-4: 17349 12/10/2013 OFFICE/OUTPATIENT VISIT EST Diagnosis: Anxiety and depression[ICD9: 300.4] Malgorzata VillanuevaEringregoriosangita ALIE ALANIZ SMaria Teresa ONEILNDER [facility] CPT-4: 90629 10/20/2013 OFFICE/OUTPATIENT VISIT EST Diagnosis: Menorrhagia[ICD9: 626.2] Malgorzatasa Janel CULVER [facility] CPT-4: 81680 10/07/2013 OFFICE/OUTPATIENT VISIT EST Diagnosis: IRREGULAR MENSTRUATION[ICD9: 626.4] Malgorzata TALAMANTES DO [facility] CPT-4: 39940 09/15/2013 OFFICE/OUTPATIENT VISIT EST Diagnosis: HEMATURIA NOS[ICD9: 599.70] Diagnosis: Abdominal discomfort in right upper quadrant[ICD9: 789.01] Malgorzata TALAMANTES DO [facility] CPT-4: 00237 06/24/2013 ([id number]) OFFICE/OUTPATIENT VISIT EST Diagnosis: ABDOMINAL PAIN[ICD9: 789.00] Diagnosis: GERD[ICD9: 530.81] Josefa TALAMANTES DO [facility] CPT-4: 78388 03/05/2013 OFFICE/OUTPATIENT VISIT EST Diagnosis: General counseling and advice on contraceptive management[ICD9: V25.09] Diagnosis: IRREGULAR MENSTRUATION[ICD9: 626.4] Malgorzata TALAMANTES Mebelrama [facility] CPT-4: 04475 02/09/2013 ([id number]) OFFICE/OUTPATIENT VISIT EST Justine TALAMANTES DO [facility] CPT-4: 02755 09/08/2010 ([id number]) OFFICE/OUTPATIENT VISIT EST Justine TALAMANTES DO [facility] CPT-4: 57425 07/24/2010 Plan of Care Planned Activity Notes Codes Status Date Visit Diagnosis Plan: Encounter for gyne cological examination (general) (routine) with abnormal findings Discussion: [place] [facility] order written and given to patient. [...] ICD-10 : R60.0 11/16/2019 Visit Diagnosis Plan: Urethritis Discussion: Diflucan and topical nystatin ICD-9 : 597.80 ICD-10 : N34.2 07/07/2019 Visit Diagnosis Plan: History of renal stone Discussio n: Flomax Push water If not improving within 48hrs or if worsening then will need CT scan to assess for stone ICD-9 : V13.01 ICD-10 : Z87.442 07/07/2019 Appointment: Josefa Talamantes WPtel: [address] [place] [address] ACUTE ILLNESS 07/07/2019 Patient Education: nystatin- [employer] Coupon [id number] [email or web address] Completed 07/07/2019 Appointment: Josefa Talamantes WPtel: [address] [place] [address] 06/15/2019 Visit Diagnosis Plan: Dysuria Discussion: due to recur rent pain and worsening symptoms, rocephin 1 gm given in office. will send urine off for culture and call on saturday if any changes needed. instructed to push fluids through the w eekend and go to urgent care with any worsening. ICD-9 : 788.1 ICD-10 : R30.0 06/05/2019 Appointment: Keyanna Mejía [address] [place] [address] FOLLOW UP 06/05/2019 Visit Diagnosis Plan: Left [...] : M25.532 03/16/2019 Appointment: Keyanna Mejía [address] Hospital Follow Up 03/16/2019 Appointment: Josfea Talamantes WPtel: [phone] [facility] [place] UA 03/02/2019 Appointment: Josefa Talamantes WPtel: [address] [place], [place] [phone] [place] INJECTION 02/16/2019 Appointment: Josefa Talamantes WPtel: [address] [place], [place] [phone] [place] INJECTION 05/21/2018 Visit Diagnosis Plan: Diseases [...] performed in office and negative. 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 had pap october of 2016. not due until 2019 or patient turns 29. ICD-9 : 626.4 ICD-10 : N92.6 03/03/2018 Appointment: Keyanna Mejía 504 [facility] ACUTE ILLNESS 03/03/2018 Patient Education: Patient Medication Summary Completed 03/03/2018 Care Plan: US EXAM OF HEAD AND NECK thyroid LOIN C : 77229-7 Pending 03/03/2018 Appointment: Josefa Talamantes WPtel: [address] [place], [place] [phone] [place] CANCELED 02/27/2018 Appointment: Josefa Talamantes WPtel: [address] [place], [place] [phone] [place] INJECTION 11/26/2017 Patient Education: Patient Medication Summary Completed 11/26/2017 Appointment: Josefa Talamantes WPtel: [address] [place], [place] [phone] [place] INJECTION 08/27/2017 Patient Education: Patient Medication Summary Completed 08/27/2017 Appointment: Josefa Talamantes WPtel: [address] [place] [phone] [place] INJECTION 06/06/2017 Patient Education: Patient Medication Summary Completed 06/06/2017 Appointment: Josefa Talamantes WPtel: [address] [place] [phone] [place] INJECTION 01/04/2017 Patient Education: Patient Medication Summary Completed 01/04/2017 Appointment: Josefa Talamantes WPtel: [address] [place] [phone] [place] 11/19 lm `sl 11/21 lm `sl NO SHOW 11/22/19 17 Patient Education: Patient Medication Summary Completed 10/22/2016 Care Plan: US EXAM OF HEAD AND NECK Thyroid Ultrasound LOIN C : 75784-2 Pending 10/22/2016 Visit Diagnosis Plan: Gastro-esophageal reflux [...] : R13.13 10/18/2016 Appointment: Josefa Talamantes WPtel: [address] [place], [place] [id number] [place] 6/7 lm ` Annual Well Visit 10/18/2016 Patient Education: Patient Medication Summary Completed 10/18/2016 Appointment: Josefa Talamantes WPtel: [address] [place], [place] [phone] [place] INJECTION 10/12/2016 Patient Education: Patient Medication Summary Completed 10/12/2016 Visit Diagnosis Plan: Influenza due to i dentified novel influenza A virus with other respiratory manifestations Discussion: Flu A positive Rx as above Supportive care otherwise Contagious precautions discussed Notify kids' provider of exposure for their instructions ICD-9 : 488.02 ICD-10 : J09.X2 08/08/2016 Appointment: Catrina Bran [address] [place], [place] [phone] ACUTE ILLNESS 08/08/2016 Patient Education: Patient Medication Summary Completed 08/08/2016 Appointment: Josefa Talamantes WPtel: [address] [place], [place] [id number] [place] INJECTION 07/25/2016 Patient Education: Patient Medication Summary Completed 07/25/2016 Visit Plan: Finish abx and then recultur e 48hrs after completion Add levsin and zorvolex 05/15/2016 Appointment: Josefa Talamantes WPtel: [address] [place] [phone] [place] 1/2 lm `sl 05/15 confirmed~ Hospital Follow Up 0 05/15/2016 Patient Education: Patient Medication Summary Completed 05/15/2016 Appointment: Catrina Bran [address] [place], [place] [phone] [place] 05/09 admitted into the hospital last night~ ACUTE ILLNESS 05/09/2016 Appointment: Josefa Talamantes WPtel: [address] [place], [place] [phone] [place] INJECTION 05/03/2016 Patient Education: Patient Medication Summary Completed 05/03/2016 Appointment: Josefa Talamantes WPtel: [address] [place], [place] [phone] [place] INJECTION 02/20/2016 Patient Education: Patient Medication Summary Completed 02/20/2016 Visit Plan: ERx for Bactrim and Bactroba n Called to [facility] Ultram 50mg 1 po q 4-6 hours prn pain #20 Warm moist heat to area qid Watch for s/s of worsening, go to over weekend Discussed SE of meds including s/s of SJS which would require an ER visit C&S obtained 12/23/2015 Appointment: Kitty Caldera WPtel: [address] [place], [place] [phone] [place] ACUTE ILLNESS 12/23/2015 Patient Education: Patient Medication Summary Completed 12/23/2015 Appointment: Josefa Talamantes WPtel: [address] [place] [phone] [place] INJECTION 11/07/2015 Patient Education: Patient Medication Summary Completed 11/07/2015 Appointment: Josefa Talamantes WPtel: [address] [place], [place] [phone] [place] INJECTION 08/01/2015 Patient Education: Patient Medication Summary Completed 08/01/2015 Appointment: Josefa Talamantes WPtel: [address] [place] [phone] [place] INJECTION 05/11/2015 Patient Education: Patient Medication Summary Completed 05/11/2015 Appointment: Malgorzata Islas WPtel: [address] [place], [place] [phone] [place] PAP 04/05/2015 Appointment: Josefa Talamantes WPtel: [address] [place] [phone] [place] INJECTION 02/16/2015 Patient Education: Patient Medication Summary Completed 02/16/2015 Visit Plan: Daily nasal saline rinses Fl onase nasal spray and daily Zyrtec Medrol dose pack Z-jhonathan as directed 01/26/2015 Appointment: Malgorzata Islas WPtel: [address] [place], [place] [phone] ACUTE ILLNESS 01/26/2015 Patient Education: Patient Medication Summary Completed 01/26/2015 Appointment: Josefa Talamantes WPtel: [address] [place] [phone] INJECTION 11/29/2014 Patient Education: Patient Medication Summary Completed 11/29/2014 Appointment: Josefa Talamantes WPtel: [address] [place] [phone] INJECTION 09/09/2014 Patient Education: Patient Medication Summary Completed 09/09/2014 Appointment: Malgorzata Islas WPtel: [address] [place], [place] [phone] FOLLOW UP 06/16/2014 Patient Education: Patient Medication Summary Completed 06/16/2014 Appointment: Malgorzata Islas WPtel: [address] [place], [place] [phone] 06/02/14 appointment scheduled 06/03/14 no showed PAP 06/03/2014 Appointment: Malgorzata Islas WPtel: [address] [place], [place] [phone] FOLLOW UP 01/28/2014 Patient Education: Patient Medication Summary Completed 01/28/2014 Care Plan: [place] : [address]-5 Ordered 01/28/2014 Care Plan: AMYLASE Pending 4 Appointment: Malgorzata Islas WPtel: [address] [place], [place] [phone] [place] FOLLOW UP 12/10/2013 Patient Education: Patient Medication Summary Completed 12/10/2013 Appointment: Malgorzata Islas WPtel: [address] [place], [place] [phone] [place] 11/11 vm 11/12 No Show FOLLOW UP 11/12/2013 Appointment: Malgorzata Islas WPtel: [address] [place], [place] [phone] [place] FOLLOW UP 10/20/2013 Patient Education: Patient Medication Summary Completed 10/20/2013 Visit Plan: Quantitative Hcg and CBC tod ay. Transvaginal/Transabdominal sonogram stat Discussed with SECURITIES CONSULTANT and CG 343 so will recheck in 1week as long as not worsening 10/07/2013 Appointment: Malgorzata Islas WPtel: [address] [place] [address] ACUTE ILLNESS 10/07/2013 Patient Education: Patient Medication Summary Completed 10/07/2013 Appointment: Malgorzata Islas WPtel: [address] [place] [address] ACUTE ILLNESS 09/15/2013 Patient Education: Patient Medication Summary Completed 09/15/2013 Appointment: Malgorzata Islas WPtel: [address] [place] [address] ACUTE ILLNESS 06/24/2013 Patient Education: Patient Medication Summary Completed 06/24/2013 Appointment: Malgorzata Islas WPtel: [address] [place] [address] [place] appt was scheduled today then patient no showed the visit ACUTE ILLNESS 05/21/2013 Visit Plan: Check CMP, CBC, UA CT scan o f abdomen Omeprazole 03/05/2013 Appointment: Josefa Talamantes WPtel: [address] [place] [address] ACUTE ILLNESS 03/05/2013 Appointment: Josefa Talamantes WPtel: [address] [place], [place] [phone] 03/02 canceled, wrong patient FOLLOW UP Patient Education: Patient Medication Summary Completed 03/05/2013 Appointment: Malgorzata Islas WPtel: [address] [place] [address] ACUTE ILLNESS 02/09/2013 Patient Education: Patient Medication Summary Completed 02/09/2013 Appointment: Justine Ortega WPtel: [address] [place] [address] ACUTE ILLNESS 09/08/2010 Patient Education: Patient Medication Summary Completed 09/08/2010 Appointment: Justine Ortega WPtel: [address] [place], [place] [phone] [place] PAP 08/08/2010 Appointment: Justine Ortega WPtel: [address] [place] [address] ACUTE ILLNESS 07/24/2010 Patient Education: Patient Medication Summary Completed 07/24/2010 Visit Plan: All warts shaved with 11-rekha de scalpel and then cryotherapy x3 Will followup with DNCB treatment 03/08/2010 Appointment: Josefa Talamantes WPtel: [address] [place], [place] [phone] ACUTE ILLNESS 03/08/2010 Patient Education: Patient Medication Summary Completed 03/08/2010 Appointment: Josefa Talamantes WPtel: [address] [place] [phone] [place] PAP 09/14/2009 Referral: Roney Galloway WPtel: [address] Referral Initiated Referral: Brian Floyd WPtel: [address] [id number] [place] Referral Initiated Referral: Referral Initiated Instructions [...] CBC today. Transvaginal/Transabdominal sonogram stat Discussed with SECURITIES CONSULTANT and [facility]CG 343 so will recheck in [...]
--- OUTSIDE RECORDS SUMMARY | 2019-12-11 22:00 | XMS REPORT | CCD ---
Author Author Brenda Talamantes D.O. Organization JOSEFA TALAMANTES DO [facility] Address [address] [place] [address] Phone Care Team Providers Care Engine Monitor Name Role Phone Josefa Talamantes D.O., PP Unavailable CCM Unavailable Summary Purpose Interface Exchange Insurance Providers Payer name Policy type / Coverage type Covered republican ID Effective Begin Date Effective End Date [facility] Commercial Insurance [id number] Unknown Family History Family History data not found Social History Social History Element Codes Description Effective Dates Tobacco history SNOMED CT: 705159063 Unknown if ever smoked 01/12 Allergies, Adverse [...] Date Active Diflucan 100 mg tablet RxNorm: 540531 1 Tablet(s) Oral QD 07/07/2019 07/14/2019 Inactive Flomax 0.4 mg capsule RxNorm: 118185 1 Capsule(s) Oral QPM for kidney stone 07/07/2019 08/06/2019 Inactive nystatin 100,000 unit/gram topical cream RxNorm: 748660 Application Topical two times a day to periurethral area 07/07/2019 11/16/2019 Inactive Bactrim DS 800 mg-160 mg tablet RxNorm: 971907 1 Tablet(s) Oral two times a day 06/08/2019 06/13/2019 Inactive Bactrim DS 800 mg-160 mg tablet RxNorm: 243892 1 Tablet(s) Oral two times a day 06/08/2019 06/07/2019 Inactive ibuprofen 800 mg tablet RxNorm: 084944 1 Tablet(s) Oral Q8H as needed 03/16/2019 06/05/2019 Inactive Cipro 500 mg tablet RxNorm: 402068 1 Tablet(s) Oral two times a day 03/04/2019 03/11/2019 Inactive Cipro 500 mg tablet RxNorm: 211028 1 Tablet(s) Oral two times a day 03/04/2019 03/03/2019 Inactive Macrobid 100 mg capsule RxNorm: 396713 1 Capsule(s) Oral two ti mes a day 02/16/2019 02/15/2019 Inactive Macrobid 100 mg capsule RxNorm: 870259 1 Capsule(s) Oral two ti mes a [...] 11/24/2017 Inactive Pepcid 40 mg tablet RxNorm: 589598 1 Tablet(s) PO QD 10/18/201603/02 Inactive Depo-Provera 150 mg/mL intramuscular suspension RxNorm: 1000 128 Milliliter(s) 1 Milliliter(s) IM 10/10/2016 06/04/2017 Inactive Tamiflu 75 mg capsule RxNorm: 203290 1 Capsule(s) PO BID 08/08/2016 0 08/12/2016 Inactive Levsin 0.125 mg tablet RxNorm: 3856205 1 Tablet(s) PO TID for fl ank pain 05/15/2016 10/17/2016 Inactive Bactrim DS 800 mg-160 mg tablet RxNorm: 088362 1 Tablet(s) PO BID 0 12/23/2015 01/01/2016 Inactive mupirocin 2 % topical ointment RxNorm: 844664 Application TOP TID 0 12/23/2015 12/29/2015 Inactive Depo-Provera 150 mg/mL intramuscular suspension RxNorm: 1000 128 Milliliter(s) 1 Milliliter(s) IM 11/08/2015 10/09/2016 Inactive Xanax 0.25 mg tablet RxNorm: 429352 TAKE ONE-HALF TO ON E TABLET BY MOUTH NEEDED FOR ANXIETY 04/11/2015 05/10/2015 Inactive Generic For:X ANAX 0.25 MG TABLET 04/11/2015 2:54:57 PM Depo-Provera 150 mg/mL intramuscular suspension RxNorm: 1000 128 Milliliter(s) 1 Milliliter(s) IM 02/15/2015 11/07/2015 Inactive azithromycin 250 mg tablet RxNorm: 204285 2 Tablet(s) P O today, then one tablet on days 2 - 5 01/26/2015 12/22/2015 Inactive Medrol (Jhonathan) 4 mg tablets in a dose pack RxNorm: 026213 Tablet(s) P O 01/26/2015 12/22/2015 Inactive Depo-Provera 150 mg/mL intramuscular suspension RxNorm: 1000 128 1 Milliliter(s) IM 09/06/2014 02/15/2015 Inactive Xanax 0.25 mg tablet RxNorm: 180640 1/2 - 1 Tablet(s) PO as nee ded for anxiety 06/16/2014 04/12/2015 Inactive Zoloft 50 mg tablet RxNorm: 839741 1 Tablet(s) PO QD 06/16/201412/21 Inactive Flexeril [...] 2014 Inactive Xanax 0.25 mg tablet RxNorm: 875225 1/2 - 1 Tablet(s) PO as nee ded for anxiety 01/28/2014 06/15/2014 Inactive naproxen 500 mg tablet RxNorm: 867955 1 Tablet(s) PO BID 12/10/2013 0 01/08/2014 Inactive Zoloft 50 mg tablet RxNorm: 541406 1 Tablet(s) PO QD 12/10/201304/08 Inactive Xanax 0.25 mg tablet RxNorm: 468868 1/2 - 1 Tablet(s) PO as nee ded for anxiety 12/10/2013 01/27/2014 Inactive Xanax 0.25 mg tablet RxNorm: 848388 1 Tablet(s) PO Q8H 10/20/2013 Inactive Zoloft 50 mg tablet RxNorm: 010063 1/2 Tablet(s) PO x 6 days then on1 tablet daily 10/20/2013 11/18/2013 Inactive Loestrin Fe 06/01 (28) 1 mg-20 mcg tablet RxNorm: 1854954 1 Table t(s) PO QD 10/20/2013 05/03/2014 Inactive phenazopyridine 100 mg tablet RxNorm: 6369929 1 Tablet(s) PO Q8H 06/26/2013 Inactive Macrobid 100 mg capsule RxNorm: 129780 1 Capsule(s) PO BID 06/25/19 14 07/04/2013 Inactive phenazopyridine 100 mg tablet RxNorm: 8889356 1 Tablet(s) PO Q8H 06/24/2013 Inactive Macrobid 100 mg capsule RxNorm: 771158 1 Capsule(s) PO BID 07/25/1908/02/2010 Inactive Apri 0.15 mg-30 mcg tablet RxNorm: 199246 1 Tablet(s) PO QD As directed. No Start Date 06/23/2013 Inactive omeprazole 40 mg capsule,delayed release RxNorm: 517066 1 Capsule(s) PO QD for stomach No Start Date 06/23/2013 Inactive naproxen 500 mg tablet RxNorm: 724579 1 Tablet(s) PO BID No Start D ate 06/15/2014 Inactive hydrocodone 10 mg-acetaminophen 325 mg tablet RxNorm: 754641 Tablet(s) PO as needed for pain No Start Date 12/22/2015 Inactive Zoloft 50 mg tablet RxNorm: 710526 1 Tablet(s) PO QD No Start Date Inactive hydrocodone 5 mg-acetaminophen 325 mg tablet RxNorm: 392995 1 Tablet(s) PO QID as needed for pain No Start Date 09/14/2013 Inactive Medication Administered No Medication Administered data Immunizations No Immunization data Results Observation Observation Code Item Item Code Result Date S ervice Location LIPASE 01285 LIPASE 14 IU/L 01/28/2014 Unknown COMPLETE BLOOD COUNT [id number] WBC 6.5 10e9/L 01/29/20 14 Unknown COMPLETE BLOOD COUNT [id number] RBC 4.54 10e12/L 2013 Unknown COMPLETE BLOOD COUNT [id number] HGB 12.1 g/dL 4 Unknown COMPLETE BLOOD COUNT [id number] HCT DET 38.0 % 4 Unknown COMPLETE BLOOD COUNT [id number] MCV 83.7 fL 4 Unknown COMPLETE BLOOD COUNT [id number] MCH 26.7 pg 4 Unknown COMPLETE BLOOD COUNT [id number] MCHC 31.8 g/dL 4 Unknown COMPLETE BLOOD COUNT [id number] PLT 218 10e9/L 01/29/20 14 Unknown COMPLETE BLOOD COUNT [id number] MPV 12.8 fL 4 Unknown COMPLETE BLOOD COUNT [id number] RACHNA % 56.5 % 4 Unknown COMPLETE BLOOD COUNT [id number] LY % 32.3 % 4 Unknown COMPLETE BLOOD COUNT [id number] MON % 8.6 % 4 Unknown COMPLETE BLOOD COUNT [id number] EOS % 2.1 % 4 Unknown COMPLETE BLOOD COUNT [id number] BASO % 0.5 % 4 Unknown COMPLETE BLOOD COUNT [id number] RDW 18.4 % 4 Unknown COMPLETE BLOOD COUNT [id number] ABS RACHNA 3.67 10e9/L 014 Unknown COMPLETE BLOOD COUNT [id number] ABS LYMPH 2.10 10e9/L 014 Unknown COMPLETE BLOOD COUNT [id number] ABS MONO 0.56 10e9/L 014 Unknown COMPLETE BLOOD COUNT [id number] ABS EOS 0.14 10e9/L 014 Unknown COMPLETE BLOOD COUNT [id number] ABS BASO 0.03 10e9/L 014 Unknown COMPLETE BLOOD COUNT [id number] RDW-SD 55.5 fL 4 Unknown COMPREHENSIVE METABOLIC 07409 AST 13 U/L 2013 Unknown COMPREHENSIVE METABOLIC 14169 ALT 7 IU/L 2013 Unknown COMPREHENSIVE METABOLIC 56393 BUN 8 MG/DL 2013 Unknown COMPREHENSIVE METABOLIC 35737 ALBUMIN 4.5 GM/DL 2013 Unknown COMPREHENSIVE METABOLIC 51944 CHLORIDE 106 MMOL/L 01/28 Unknown COMPREHENSIVE METABOLIC 17450 BILI TOT 0.4 MG/DL 2013 Unknown COMPREHENSIVE METABOLIC 03623 ALK PHOS 55 U/L 2013 Unknown COMPREHENSIVE METABOLIC 18326 SODIUM 138 MMOL/L 01/28 Unknown COMPREHENSIVE METABOLIC 30118 CREATININE 0.73 MG/DL 01/11 Unknown COMPREHENSIVE METABOLIC 14398 CALCIUM 9.9 MG/DL 2013 Unknown COMPREHENSIVE METABOLIC 97784 POTASSIUM 3.8 MMOL/L 01/28 Unknown COMPREHENSIVE METABOLIC 09473 PROT TOT 7.4 GM/DL 2013 Unknown COMPREHENSIVE METABOLIC 74190 Glucose 96 MG/DL 2013 Unknown COMPREHENSIVE METABOLIC 69495 BICARB 27 MMOL/L 2013 Unknown COMPREHENSIVE METABOLIC 37453 ANION GAP 5 MEQ/L 2013 Unknown AMYLASE 90414 AMYLASE 42 IU/L 01/28/2014 Unknown GFR CALC [id number] GFR AA >60 ML/MIN 01/28/2014 Unknown GFR CALC [id number] GFR NON-AA >60 ML/MIN 01/28/2014 Unknown Procedures Procedure Codes Date URINE TEST CPT-4: 60522 11/16/2019 SPECIMEN HANDLING OFFICE-LAB CPT-4: 93645 11/16/2019 URINE CULTURE/ COLONY COUNT CPT-4: 13717 06/15/2019 URINALYSIS NONAUTO W/O SCOPE CPT-4: 20441 06/05/2019 CEFTRIAXONE SODIUM INJECTION CPT-4: J0696 06/05/2019 THER/PROPH/DIAG INJ SC/IM CPT-4: 50808 06/05/2019 URINE CULTURE/ COLONY COUNT CPT-4: 59288 06/05/2019 URINE CULTURE/ COLONY COUNT CPT-4: 74951 03/02/2019 THER/PROPH/DIAG INJ SC/IM CPT-4: 97830 02/16/2019 URINE CULTURE/ COLONY COUNT CPT-4: 86924 02/16/2019 URINALYSIS NONAUTO W/O SCOPE CPT-4: 83551 02/16/2019 URINE TEST CPT-4: 52951 02/16/2019 THER/PROPH/DIAG INJ SC/IM CPT-4: 15748 05/21/2018 THER/PROPH/DIAG INJ SC/IM CPT-4: 87178 11/26/2017 THER/PROPH/DIAG INJ SC/IM CPT-4: 50418 08/27/2017 THER/PROPH/DIAG INJ SC/IM CPT-4: 86766 06/06/2017 URINALYSIS NONAUTO W/O SCOPE CPT-4: 69741 06/06/2017 GC/CHLAMYDIA DNA (-[facility]) CPT-4: 38600|48896 8 URINE CULTURE/ COLONY COUNT CPT-4: 82657 06/06/2017 THER/PROPH/DIAG INJ SC/IM CPT-4: 57848 01/04/2017 SPECIMEN HANDLING OFFICE-LAB CPT-4: 38488 10/18/2016 THER/PROPH/DIAG INJ SC/IM CPT-4: 27701 10/12/2016 INFLUENZA ASSAY W/OPTIC CPT-4: 36405 08/08/2016 THER/PROPH/DIAG INJ SC/IM CPT-4: 49083 07/25/2016 THER/PROPH/DIAG INJ SC/IM CPT-4: 69427 05/03/2016 THER/PROPH/DIAG INJ SC/IM CPT-4: 95872 02/20/2016 URINE TEST CPT-4: 83603 02/20/2016 AEROBIC WOUND CULTURE & STN CPT-4: 26505 12/23/2015 THER/PROPH/DIAG INJ SC/IM CPT-4: 17848 11/07/2015 URINE TEST CPT-4: 27756 11/07/2015 THER/PROPH/DIAG INJ SC/IM CPT-4: 78282 08/01/2015 THER/PROPH/DIAG INJ SC/IM CPT-4: 85893 05/11/2015 THER/PROPH/DIAG INJ SC/IM CPT-4: 53977 02/16/2015 THER/PROPH/DIAG INJ SC/IM CPT-4: 16107 11/29/2014 THER/PROPH/DIAG INJ SC/IM CPT-4: 33033 09/09/2014 URINE TEST CPT-4: 34441 06/16/2014 THER/PROPH/DIAG INJ SC/IM CPT-4: 21383 06/16/2014 ROUTINE VENIPUNCTURE CPT-4: 12687 10/07/2013 COMPLETE CBC W/AUTO DIFF WBC CPT-4: 94610 10/07/2013 CHORIONIC GONADOTROPIN TEST CPT-4: 12067 10/07/2013 URINE TEST CPT-4: 35255 09/15/2013 URINALYSIS NONAUTO W/O SCOPE CPT-4: 25909 06/24/2013 URINE CULTURE/ COLONY COUNT CPT-4: 20587 06/24/2013 URINE TEST CPT-4: 09441 09/08/2010 URINALYSIS NONAUTO W/O SCOPE CPT-4: 65781 07/24/2010 URINE CULTURE/ COLONY COUNT CPT-4: 65275 07/24/2010 DESTRUCT PREMALG LESION (Cryosurgery) CPT-4: 39009 DESTRUCT PREMALG LES 2-14 CPT-4: 17948 03/08/2010 Vital Signs Date Vital 11/16/2019 Blood Pressure 1: 119/75 Code: 8480-6 BMI: 24.4 Code: 20646-8 Heart Rate 1: 112 bpm Height: 5'9" Respiratory Rate: 15 bpm SpO2: 98% Tempera ture: 36.8 (C) / 98.2 (F) Weight: 165 lbs 07/07/2019 Blood Pressure 1: 126/82 Code: 8480-6 Heart Rate 1: 100 bpm SpO2: 99% Temperature: 36.8 (C) / 98.2 (F) 06/05/2019 Blood Pressure 1: 131/82 Code: 8480-6 BMI: 26.3 Code: 59352-4 Heart Rate 1: 109 bpm Height: 5'9" Respiratory Rate: 16 bpm SpO2: 99% Tempera ture: 36.7 (C) / 98.1 (F) Weight: 178 lbs 03/16/2019 Blood Pressure 1: 132/86 Code: 8480-6 Heart Rate 1: 73 bpm SpO2: 99% Temperature: 36.6 (C) / 97.9 (F) Weight: 158 lbs 03/03/2018 Blood Pressure 1: 120/88 Code: 8480-6 BMI: 23.9 Code: 04677-1 Heart Rate 1: 81 bpm Height: 5'9" Respiratory Rate: 18 bpm SpO2: 99% Tempera ture: 36.1 (C) / 97.0 (F) Weight: 162 lbs 10/18/2016 Blood Pressure 1: 108/78 Code: 8480-6 BMI: 22.6 Code: 69250-6 Heart Rate 1: 100 bpm Height: 5'9" Respiratory Rate: 20 bpm SpO2: 98% Tempera ture: 37.1 (C) / 98.8 (F) Weight: 153 lbs 08/08/2016 Blood Pressure 1: 114/78 Code: 8480-6 Heart Rate 1: 102 bpm Respiratory Rate: 20 bpm SpO2: 98% Temperature: 36.4 (C) / 97.6 (F) We ight: 152 lbs 05/15/2016 Blood Pressure 1: 124/80 Code: 8480-6 BMI: 23.2 Code: 79985-8 Heart Rate 1: 100 bpm Height: 5'9" Respiratory Rate: 20 bpm Temperature: 37 .0 (C) / 98.6 (F) Weight: 157 lbs 12/23/2015 Blood Pressure 1: 124/78 Code: 8480-6 BMI: 23.0 Code: 84861-4 Heart Rate 1: 92 bpm Height: 5'9" Respiratory Rate: 20 bpm SpO2: 97% Tempera ture: 36.9 (C) / 98.5 (F) Weight: 156 lbs 01/26/2015 Blood Pressure 1: 118/78 Code: 8480-6 BMI: 21.3 Code: 06351-7 Heart Rate 1: 100 bpm Height: 5'9" Respiratory Rate: 20 bpm SpO2: 97% Tempera ture: 36.6 (C) / 97.8 (F) Weight: 144 lbs 06/16/2014 Blood Pressure 1: 118/78 Code: 8480-6 BMI: 23.5 Code: 98143-7 Heart Rate 1: 78 bpm Height: 5'9" Respiratory Rate: 18 bpm Temperature: 36 .1 (C) / 97.0 (F) Weight: 159 lbs 01/28/2014 Blood Pressure 1: 124/78 Code: 8480-6 BMI: 23.2 Code: 49880-5 Heart Rate 1: 88 bpm Height: 5'9" Respiratory Rate: 22 bpm Temperature: 36 .1 (C) / 97.0 (F) Weight: 157 lbs 12/10/2013 Blood Pressure 1: 124/70 Code: 8480-6 BMI: 23.0 Code: 75549-3 Heart Rate 1: 82 bpm Height: 5'9" Respiratory Rate: 20 bpm Temperature: 36 .2 (C) / 97.2 (F) Weight: 156 lbs 10/20/2013 Blood Pressure 1: 118/82 Code: 8480-6 Heart Rate 1: 84 bpm Respiratory Rate: 22 bpm Temperature: 36.5 (C) / 97.7 (F) Weight: 150 lbs 10/07/2013 Blood Pressure 1: 120/80 Code: 8480-6 BMI: 22.2 Code: 90869-5 Heart Rate 1: 68 bpm Height: 5'9" Respiratory Rate: 22 bpm Temperature: 36 .2 (C) / 97.2 (F) Weight: 150 lbs 09/15/2013 Blood Pressure 1: 118/68 Code: 8480-6 BMI: 22.0 Code: 88828-8 Heart Rate 1: 78 bpm Height: 5'9" Respiratory Rate: 20 bpm Temperature: 36 .1 (C) / 97.0 (F) Weight: 149 lbs 06/24/2013 Blood Pressure 1: 112/74 Code: 8480-6 Heart Rate 1: 74 bpm Respiratory Rate: 20 bpm Temperature: 36.6 (C) / 97.9 (F) Weight: 150 lbs 03/05/2013 Blood Pressure 1: 126/88 Code: 8480-6 BMI: 23.5 Code: 40617-5 Heart Rate 1: 80 bpm Height: 5'9" Respiratory Rate: 20 bpm Temperature: 36 .6 (C) / 97.9 (F) Weight: 159 lbs 02/09/2013 Blood Pressure 1: 110/68 Code: 8480-6 BMI: 21.9 Code: 15491-3 Heart Rate 1: 74 bpm Height: 5'9" Respiratory Rate: 22 bpm Temperature: 36 .8 (C) / 98.2 (F) Weight: 148 lbs 09/08/2010 Blood Pressure 1: 124/90 Code: 8480-6 BMI: 21.4 Code: 57108-7 Height: 5'10" Temperature: 36.4 (C) / 97.6 [...] painful Encounters Encounter Performer Location Codes Date ([id number]) PREV VISIT EST AGE 18-39 Diagnosis: Encounter for gynecological examination (general) (routine) with abnormal findings[ICD10: Z01.411] Diagnosis: Encounter for general adult medical examination without abnormal findings[ICD10: Z00.00] Diagnosis: Vaginitis[ICD10: N76.0] Diagnosis: Left breast mass[ICD10: N63.20] Diagnosis: Dense breast tissue[ICD10: R92.2] Diagnosis: Bilateral lower extremity edema[ICD10: R60.0] Diagnosis: control counseling[ICD10: Z30.09] Keyanna Connors RECCY CPT-4: 86022 11/16/2019 ([id number]) OFFICE/OUTPATIENT VISIT EST Diagnosis: Urethritis[ICD10: N34.2] Diagnosis: History of renal stone[ICD10: Z87.442] Josefa BRIAN RawFlowMaria Teresa RECCY CPT-4: 39907 07/07/2019 ([id number]) NURSE/OUTPATIENT VISIT EST Diagnosis: Urinary tract infection[ICD10: N39.0] Josefa Connors RECCY CPT-4: 46473 06/15/2019 ([id number]) OFFICE/OUTPATIENT VISIT EST Diagnosis: Dysuria[ICD10: R30.0] Diagnosis: Pelvic pain in female[ICD10: R10.2] Keyanna TALAMANTES DO [facility] CPT-4: 01315 06/05/2019 ([id number]) OFFICE/OUTPATIENT VISIT EST Diagnosis: Left wrist pain[ICD10: M25.532] Diagnosis: Swelling of left upper extremity[ICD10: M79.89] Keyanna TALAMANTES DO [facility] CPT-4: 59216 03/16/2019 ([id number]) NURSE/OUTPATIENT VISIT EST Diagnosis: Urinary tract infection[ICD10: N39.0] Josefa TALAMANTES DO [facility] CPT-4: 84486 03/02/2019 ([id number]) NURSE/OUTPATIENT VISIT EST Diagnosis: Irregular menstruation, unspecified[ICD10: N92.6] Diagnosis: Urinary tract infection[ICD10: N39.0] Josefa TALAMANTES DO [facility] CPT-4: 01529 02/16/2019 ([id number]) NURSE/OUTPATIENT VISIT EST Diagnosis: Irregular menstruation, unspecified[ICD10: N92.6] Josefa TALAMANTES DO [facility] CPT-4: 16317 05/21/2018 ([id number]) OFFICE/OUTPATIENT VISIT EST Diagnosis: Irregular menstruation, unspecified[ICD10: N92.6] Diagnosis: Diseases of lips[ICD10: K13.0] Diagnosis: 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] Keyanna TALAMANTES DO [facility] CPT-4: 61633 03/03/2018 ([id number]) NURSE/OUTPATIENT VISIT EST Diagnosis: Irregular menstruation, unspecified[ICD10: N92.6] Josefa TALAMANTES DO [facility] CPT-4: 55835 11/26/2017 ([id number]) OFFICE/OUTPATIENT VISIT EST Diagnosis: Irregular menstruation, unspecified[ICD10: N92.6] Josefa TALAMANTES DO [facility] CPT-4: 62277 08/27/2017 ([id number]) OFFICE/OUTPATIENT VISIT EST Diagnosis: Dysuria[ICD10: R30.0] Diagnosis: Irregular menstruation, unspecified[ICD10: N92.6] Josefa TALAMANTES [place] [facility] CPT-4: 33658 06/06/2017 ([id number]) OFFICE/OUTPATIENT VISIT EST Diagnosis: Irregular menstruation, unspecified[ICD10: N92.6] Josefa TALAMANTES DO [facility] CPT-4: 77155 01/04/2017 ([id number]) PREV VISIT EST AGE 18-39 Diagnosis: Encounter for general adult medical examination without abnormal findings[ICD10: Z00.00] Diagnosis: Encounter for gynecological examination (general) (routine) without abnormal findings[ICD10: Z01.419] Diagnosis: Gastro-esophageal reflux disease without esophagitis[ICD10: K21.9] Diagnosis: Dysphagia, pharyngeal phase[ICD10: R13.13] Josefa TALAMANTES [place] [facility] CPT-4: 81446 10/18/2016 ([id number]) OFFICE/OUTPATIENT VISIT EST Diagnosis: Irregular menstruation, unspecified[ICD10: N92.6] Josefa TALAMANTES [place] [facility] CPT-4: 93407 10/12/2016 ([id number]) OFFICE/OUTPATIENT VISIT EST Diagnosis: Fever, unspecified[ICD10: R50.9] Diagnosis: Influenza due to identified novel influenza A virus with other respiratory manifestations[ICD10: J09.X2] Catrina Bran JOSEFA TALAMANTES [place] [facility] CPT-4: 17697 08/08/2016 ([id number]) OFFICE/OUTPATIENT VISIT EST Diagnosis: Irregular menstruation, unspecified[ICD10: N92.6] Josefa TALAMANTES DO [facility] CPT-4: 88796 07/25/2016 ([id number]) OFFICE/OUTPATIENT VISIT EST Diagnosis: Right upper quadrant pain[ICD10: R10.11] Diagnosis: Unspecified abdominal pain[ICD10: R10.9] Josefa TALAMANTES DO [facility] CPT-4: 49274 05/15/2016 ([id number]) OFFICE/OUTPATIENT VISIT EST Diagnosis: Irregular menstruation, unspecified[ICD10: N92.6] Josefa TALAMANTES DO [facility] CPT-4: 15043 05/03/2016 ([id number]) OFFICE/OUTPATIENT VISIT EST Diagnosis: Irregular menstruation, unspecified[ICD10: N92.6] Josefa TALAMANTES DO [facility] CPT-4: 09681 02/20/2016 OFFICE/OUTPATIENT VISIT EST Diagnosis: Cutaneous abscess of buttock[ICD10: L02.31] Kitty Verenice JOSEFA TALAMANTES DO [facility] CPT-4: 01407 12/23/2015 ([id number]) OFFICE/OUTPATIENT VISIT EST Diagnosis: Irregular menstruation, unspecified[ICD10: N92.6] Josefa TALAMANTES DO [facility] CPT-4: 68128 11/07/2015 ([id number]) OFFICE/OUTPATIENT VISIT EST Diagnosis: Irregular menstruation, unspecified[ICD10: N92.6] Josefa TALAMANTES DO [facility] CPT-4: 03948 08/01/2015 ([id number]) OFFICE/OUTPATIENT VISIT EST Diagnosis: Irregular menstruation, unspecified[ICD10: N92.6] Josefa TALAMANTES DO [facility] CPT-4: 39857 05/11/2015 ([id number]) OFFICE/OUTPATIENT VISIT EST Diagnosis: Irregular menstruation, unspecified[ICD10: N92.6] Josefa TALAMANTES DO [facility] CPT-4: 03989 02/16/2015 OFFICE/OUTPATIENT VISIT EST Diagnosis: SINUSITIS, ACUTE[ICD9: 461.9] Malgorzata VanErinelaere JOSEFA TALAMANTES DO [facility] CPT-4: 73281 01/26/2015 ([id number]) OFFICE/OUTPATIENT VISIT EST Diagnosis: IRREGULAR MENSTRUATION[ICD9: 626.4] Josefa ALANIZ SergioMaria Teresa [facility] CPT-4: 39924 11/29/2014 ([id number]) OFFICE/OUTPATIENT VISIT EST Diagnosis: IRREGULAR MENSTRUATION[ICD9: 626.4] Josefa LAANIZ Waylon [facility]ARNDER [facility] CPT-4: 70088 09/09/2014 ([id number]) OFFICE/OUTPATIENT VISIT EST Diagnosis: IRREGULAR MENSTRUATION[ICD9: 626.4] Diagnosis: General counseling and advice on contraceptive management[ICD9: V25.09] Diagnosis: Anxiety and depression[ICD9: 300.4] Malgorzata TALAMANTES [facility] CPT-4: 72192 06/16/2014 OFFICE/OUTPATIENT VISIT EST Diagnosis: Right upper quadrant pain[ICD9: 789.01] Malgorzata TALAMANTES [facility] CPT-4: 04132 01/28/2014 OFFICE/OUTPATIENT VISIT EST Diagnosis: Right upper quadrant pain[ICD9: 789.01] Malgorzata TALAMANTES [facility] CPT-4: 92766 12/10/2013 OFFICE/OUTPATIENT VISIT EST Diagnosis: Anxiety and depression[ICD9: 300.4] Malgorzata TALAMANTES [facility] CPT-4: 39129 10/20/2013 OFFICE/OUTPATIENT VISIT EST Diagnosis: Menorrhagia[ICD9: 626.2] Malgorzata RIVERA [facility] CPT-4: 78488 10/07/2013 OFFICE/OUTPATIENT VISIT EST Diagnosis: IRREGULAR MENSTRUATION[ICD9: 626.4] Malgorzata TALAMANTES [facility] CPT-4: 45226 09/15/2013 OFFICE/OUTPATIENT VISIT EST Diagnosis: HEMATURIA NOS[ICD9: 599.70] Diagnosis: Abdominal discomfort in right upper quadrant[ICD9: 789.01] Malgorzata TALAMANTES [facility] CPT-4: 10493 06/24/2013 ([id number]) OFFICE/OUTPATIENT VISIT EST Diagnosis: ABDOMINAL PAIN[ICD9: 789.00] Diagnosis: GERD[ICD9: 530.81] Josefa Vinita TALAMANTES [facility] CPT-4: 69879 03/05/2013 OFFICE/OUTPATIENT VISIT EST Diagnosis: General counseling and advice on contraceptive management[ICD9: V25.09] Diagnosis: IRREGULAR MENSTRUATION[ICD9: 626.4] Malgorzata Islas ALIE KATTY TALAMANTES DO [facility] CPT-4: 30456 02/09/2013 ([id number]) OFFICE/OUTPATIENT VISIT GISEL TALAMANTES DO [facility] CPT-4: 60567 09/08/2010 ([id number]) OFFICE/OUTPATIENT VISIT GISEL TALAMANTES DO [facility] CPT-4: 68226 07/24/2010 Plan of Care Planned Activity Notes Codes Status Date Visit Diagnosis Plan: Encounter for gyne cological examination (general) (routine) with abnormal findings Discussion: fasting labs to be completed this week at [facility]. order written and given to patient. [...] : Z87.442 07/07/2019 Appointment: Josefa Talamantes [facility] [phone] [id number] [facility] 07/07/2019 Patient Education: nystatin- [employer] Coupon [id number] [email or web address] Completed 07/07/2019 Appointment: Josefa Talamantes WPtel: [address] [place], [place] [phone] [place] UA 06/15/2019 Visit Diagnosis Plan: Dysuria Discussion: due to recur rent pain and worsening symptoms, rocephin 1 gm given in office. will send urine off for culture and call on saturday if any changes needed. instructed to push fluids through the w eekend and go to urgent care with any worsening. ICD-9 : 788.1 ICD-10 : R30.0 06/05/2019 Appointment: Keyanna Mejía [address] [place], [place] [id number] FO[facility] 06/05/2019 Visit Diagnosis Plan: Left [...] : M25.532 03/16/2019 Appointment: Keyanna Mejía [address] [place] [address] Hospital Follow Up 03/16/2019 Appointment: Josefa Talamantes WPtel: [address] [place], [place] [phone] [place] UA 03/02/2019 Appointment: Josefa Talamantes WPtel: [address] [place], [place] [phone] [place] INJECTION 02/16/2019 Appointment: Josefa Talamantes WPtel: [address] [place], [place] [phone] [place] INJECTION 05/21/2018 Visit Diagnosis Plan: Diseases [...] office and negative. 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 had pap october of 2016. not due until 2019 or patient turns 29. ICD-9 : 626.4 ICD-10 : N92.6 03/03/2018 Appointment: Keyanna Mejía [address] [place], [place] [phone] [place] ACUTE ILLNESS 03/03/2018 Patient Education: Patient Medication Summary Completed 03/03/2018 Care Plan: US EXAM OF HEAD AND NECK thyroid LOIN C : 33497-7 Pending 03/03/2018 Appointment: Josefa Talamantes WPtel: [address] [place], [place] [phone] [place] CANCELED 02/27/2018 Appointment: Josefa Talamantes WPtel: [address] [place], [place] [id number] [place] INJECTION 11/26/2017 Patient Education: Patient Medication Summary Completed 11/26/2017 Appointment: Josefa Talamantes WPtel: [phone] [place] [id number] [place] INJECTION 08/27/2017 Patient Education: Patient Medication Summary Completed 08/27/2017 Appointment: Josefa Talamantes WPtel: [address] [place], [place] [phone] [place] INJECTION 06/06/2017 Patient Education: Patient Medication Summary Completed 06/06/2017 Appointment: Josefa Talamantes WPtel: [address] [place], [place] [id number] [place] INJECTION 01/04/2017 Patient Education: Patient Medication Summary Completed 01/04/2017 Appointment: Josefa Talamantes WPtel: [address] [place], [place] [id number] [place] 11/19 lm `sl 11/21 lm `sl NO SHOW 11/22/19 17 Patient Education: Patient Medication Summary Completed 10/22/2016 Care Plan: US EXAM OF HEAD AND NECK Thyroid Ultrasound LOIN C : 55970-8 Pending 10/22/2016 Visit Diagnosis Plan: Gastro-esophageal reflux [...] : R13.13 10/18/2016 Appointment: Josefa Talamantes WPtel: [address] [place], [place] [phone] 10/17 lm `sl Annual Well Visit 10/18/2016 Patient Education: Patient Medication Summary Completed 10/18/2016 Appointment: Josefa Talamantes WPtel: [address] [place], [place] [phone] [place] INJECTION 10/12/2016 Patient Education: Patient Medication Summary Completed 10/12/2016 Visit Diagnosis Plan: Influenza due to i dentified novel influenza A virus with other respiratory manifestations Discussion: Flu A positive Rx as above Supportive care otherwise Contagious precautions discussed Notify kids' provider of exposure for their instructions ICD-9 : 488.02 ICD-10 : J09.X2 08/08/2016 Appointment: Catrina Bran [address] [place], [place] [id number] ACUTE ILLNESS 08/08/2016 Patient Education: Patient Medication Summary Completed 08/08/2016 Appointment: Josefa Talamantes WPtel: [address] [place], [place] [id number] [place] INJECTION 07/25/2016 Patient Education: Patient Medication Summary Completed 07/25/2016 Visit Plan: Finish abx and then recultur e 48hrs after completion Add levsin and zorvolex 05/15/2016 Appointment: Josefa Talamantes WPtel: [address] [place], [place] [id number] [place] 05/14 lm `sl 05/15 confirmed~ Hospital Follow Up 0 05/15/2016 Patient Education: Patient Medication Summary Completed 05/15/2016 Appointment: Catrina Bran [address] [place], [place] [id number] 05/09 admitted into the hospital last night~ ACUTE ILLNESS 05/09/2016 Appointment: Josefa Talamantes WPtel: [address] [place], [place] [phone] [place] INJECTION 05/03/2016 Patient Education: Patient Medication Summary Completed 05/03/2016 Appointment: Josefa Talamantes WPtel: [address] [place], [place] [id number] [place] INJECTION 02/20/2016 Patient Education: Patient Medication Summary Completed 02/20/2016 Visit Plan: ERx for Bactrim and Bactroba n Called to [facility] Ultram 50mg 1 po q 4-6 hours prn pain #20 Warm moist heat to area qid Watch for s/s of worsening, go to UC over weekend Discussed SE of meds including s/s of SJS which would require an ER visit C&S obtained 12/23/2015 Appointment: Kitty Caldera WPtel: [address] [place], [place] [phone] [place] ACUTE ILLNESS 12/23/2015 Patient Education: Patient Medication Summary Completed 12/23/2015 Appointment: Josefa Talamantes WPtel: [address] [place], [place] [id number] [place] INJECTION 11/07/2015 Patient Education: Patient Medication Summary Completed 11/07/2015 [facility]ment[facility] [address] [facility] [place] [facility] 08/01/2015 Patient Education: Patient Medication Summary Completed 08/01/2015 Appointment: Josefa Talamantes WPtel: [address] [facility] [place] INJECTION 05/11/2015 Patient Education: Patient Medication Summary Completed 05/11/2015 Appointment: Malgorzata Islas WPtel: [phone] [facility] [place] PAP 04/05/2015 Appointment: Josefa Talamantes WPtel: [address] [place], [place] [phone] [place] INJECTION 02/16/2015 Patient Education: Patient Medication Summary Completed 02/16/2015 Visit Plan: Daily nasal saline rinses Fl onase nasal spray and daily Zyrtec Medrol dose pack Z-jhonathan as directed 01/26/2015 Appointment: Malgorzata Islas WPtel: [address] [place], [place] [phone] [place] ACUTE ILLNESS 01/26/2015 Patient Education: Patient Medication Summary Completed 01/26/2015 Appointment: Josefa Talamantes WPtel: [address] [place] [id number] [place] INJECTION 11/29/2014 Patient Education: Patient Medication Summary Completed 11/29/2014 Appointment: Josefa Talamantes WPtel: [address] [place] [id number] [place] INJECTION 09/09/2014 Patient Education: Patient Medication Summary Completed 09/09/2014 Appointment: Malgorzata Islas WPtel: [address] [place], [place] [phone] [place] FOLLOW UP 06/16/2014 Patient Education: Patient Medication Summary Completed 06/16/2014 Appointment: Malgorzata Islas WPtel: [address] [place], [place] [phone] 06/02/14 appointment scheduled 06/03/14 no showed PAP 06/03/2014 Appointment: Malgorzata Islas WPtel: [address] [place], [place] [phone] [place] FOLLOW UP 01/28/2014 Patient Education: Patient Medication Summary Completed 01/28/2014 Care Plan: COMPREHEN METABOLIC PANEL [place] : 00064-6 Ordered 01/28/2014 Care Plan: AMYLASE Pending 4 Appointment: Malgorzata Islas WPtel: [address] [place], [place] [phone] FOLLOW UP 12/10/2013 Patient Education: Patient Medication Summary Completed 12/10/2013 Appointment: Malgorzata Islas WPtel: [address] [place], [place] [phone] 11/11 vm 11/12 No Show FOLLOW UP 11/12/2013 Appointment: Malgorzata Islas WPtel: [address] [place], [place] [phone] FOLLOW UP 10/20/2013 Patient Education: Patient Medication Summary Completed 10/20/2013 Visit Plan: Quantitative Hcg and CBC tod ay. Transvaginal/Transabdominal sonogram stat Discussed with COMMIS CHEF and BHCG 343 so will recheck in 1week as long as not worsening 10/07/2013 Appointment: Malgorzata Islas WPtel: [address] [place], [place] [phone] ACUTE ILLNESS 10/07/2013 Patient Education: Patient Medication Summary Completed 10/07/2013 Appointment: Malgorzata Islas WPtel: [address] [place], [place] [phone] ACUTE ILLNESS 09/15/2013 Patient Education: Patient Medication Summary Completed 09/15/2013 Appointment: Malgorzata Islas WPtel: [address] [place], [place] [phone] ACUTE ILLNESS 06/24/2013 Patient Education: Patient Medication Summary Completed 06/24/2013 Appointment: Malgorzata Islas WPtel: [address] [place], [place] [phone] [place] appt was scheduled today then patient no showed the visit ACUTE ILLNESS 05/21/2013 Visit Plan: Check CMP, CBC, UA CT scan o f abdomen Omeprazole 03/05/2013 Appointment: Josefa Talamantes WPtel: [address] [place] [address] ACUTE ILLNESS 03/05/2013 Appointment: Josefa Talamantes WPtel: [address] [place], [place] [id number] 03/02 canceled, wrong patient FOLLOW UP Patient Education: Patient Medication Summary Completed 03/05/2013 Appointment: Malgorzata Islas WPtel: [address] [place] [address] ACUTE ILLNESS 02/09/2013 Patient Education: Patient Medication Summary Completed 02/09/2013 Appointment: Justine Ortega WPtel: [address] [place] [address] ACUTE ILLNESS 09/08/2010 Patient Education: Patient Medication Summary Completed 09/08/2010 Appointment: Justine Ortega WPtel: [address] [place], [place] [id number] PAP 08/08/2010 Appointment: Justine Ortega WPtel: [address] [place] [address] ACUTE ILLNESS 07/24/2010 Patient Education: Patient Medication Summary Completed 07/24/2010 Visit Plan: All warts shaved with 11-rekha de scalpel and then cryotherapy x3 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 [id number] [place] Referral Initiated Referral: Referral Initiated Instructions [...] CBC today. Transvaginal/Transabdominal sonogram stat Discussed with COMMIS CHEF and BHCG 343 so will recheck in [...]
--- OUTSIDE RECORDS SUMMARY | 2019-12-11 22:00 | XMS REPORT | CCD ---
Author Author Brenda Talamantes D.O. Organization JOSEFA TALAMANTES DO [facility] Address [address] [place] [address] Phone Care Team Providers Care Relocation Commissioner Name Role Phone Josefa Talamantes D.O., PP Unavailable CCM Unavailable Summary Purpose Interface Exchange Insurance Providers Payer name Policy type / Coverage type Covered libertarian ID Effective Begin Date Effective End Date [employer] [facility] Commercial Insurance [id number] Unknown Family History Family History data not found Social History Social History Element Codes Description Effective Dates Tobacco history SNOMED CT: 257459575 Unknown if ever smoked 01/12 Allergies, Adverse [...] Date Active Diflucan 100 mg tablet RxNorm: 406715 1 Tablet(s) Oral QD 07/07/2019 07/14/2019 Inactive Flomax 0.4 mg capsule RxNorm: 443518 1 Capsule(s) Oral QPM for kidney stone 07/07/2019 08/06/2019 Inactive nystatin 100,000 unit/gram topical cream RxNorm: 005291 Application Topical two times a day to periurethral area 07/07/2019 11/16/2019 Inactive Bactrim DS 800 mg-160 mg tablet RxNorm: 963218 1 Tablet(s) Oral two times a day 06/08/2019 06/13/2019 Inactive Bactrim DS 800 mg-160 mg tablet RxNorm: 516041 1 Tablet(s) Oral two times a day 06/08/2019 06/07/2019 Inactive ibuprofen 800 mg tablet RxNorm: 005365 1 Tablet(s) Oral Q8H as needed 03/16/2019 06/05/2019 Inactive Cipro 500 mg tablet RxNorm: 935361 1 Tablet(s) Oral two times a day 03/04/2019 03/11/2019 Inactive Cipro 500 mg tablet RxNorm: 124848 1 Tablet(s) Oral two times a day 03/04/2019 03/03/2019 Inactive Macrobid 100 mg capsule RxNorm: 662051 1 Capsule(s) Oral two ti mes a day 02/16/2019 02/15/2019 Inactive Macrobid 100 mg capsule RxNorm: 917152 1 Capsule(s) Oral two ti mes a [...] 11/24/2017 Inactive Pepcid 40 mg tablet RxNorm: 390627 1 Tablet(s) PO QD 10/18/201603/02 Inactive Depo-Provera 150 mg/mL intramuscular suspension RxNorm: 1000 128 Milliliter(s) 1 Milliliter(s) IM 10/10/2016 06/04/2017 Inactive Tamiflu 75 mg capsule RxNorm: 488764 1 Capsule(s) PO BID 08/08/2016 0 08/12/2016 Inactive Levsin 0.125 mg tablet RxNorm: 5360456 1 Tablet(s) PO TID for fl ank pain 05/15/2016 10/17/2016 Inactive Bactrim DS 800 mg-160 mg tablet RxNorm: 816346 1 Tablet(s) PO BID 0 12/23/2015 01/01/2016 Inactive mupirocin 2 % topical ointment RxNorm: 624194 Application TOP TID 0 12/23/2015 12/29/2015 Inactive Depo-Provera 150 mg/mL intramuscular suspension RxNorm: 1000 128 Milliliter(s) 1 Milliliter(s) IM 11/08/2015 10/09/2016 Inactive Xanax 0.25 mg tablet RxNorm: 855551 TAKE ONE-HALF TO ON E TABLET BY MOUTH NEEDED FOR ANXIETY 04/11/2015 05/10/2015 Inactive Generic For:X ANAX 0.25 MG TABLET 04/11/2015 2:54:57 PM Depo-Provera 150 mg/mL intramuscular suspension RxNorm: 1000 128 Milliliter(s) 1 Milliliter(s) IM 02/15/2015 11/07/2015 Inactive azithromycin 250 mg tablet RxNorm: 761919 2 Tablet(s) P O today, then one tablet on days 2 - 5 01/26/2015 12/22/2015 Inactive Medrol (Jhonathan) 4 mg tablets in a dose pack RxNorm: 492654 Tablet(s) P O 01/26/2015 12/22/2015 Inactive Depo-Provera 150 mg/mL intramuscular suspension RxNorm: 1000 128 1 Milliliter(s) IM 09/06/2014 02/15/2015 Inactive Xanax 0.25 mg tablet RxNorm: 272090 1/2 - 1 Tablet(s) PO as nee ded for anxiety 06/16/2014 04/12/2015 Inactive Zoloft 50 mg tablet RxNorm: 644861 1 Tablet(s) PO QD 06/16/201412/21 Inactive Flexeril [...] 2014 Inactive Xanax 0.25 mg tablet RxNorm: 075569 1/2 - 1 Tablet(s) PO as nee ded for anxiety 01/28/2014 06/15/2014 Inactive naproxen 500 mg tablet RxNorm: 065150 1 Tablet(s) PO BID 12/10/2013 0 01/08/2014 Inactive Zoloft 50 mg tablet RxNorm: 067394 1 Tablet(s) PO QD 12/10/201304/08 Inactive Xanax 0.25 mg tablet RxNorm: 899503 1/2 - 1 Tablet(s) PO as nee ded for anxiety 12/10/2013 01/27/2014 Inactive Xanax 0.25 mg tablet RxNorm: 450921 1 Tablet(s) PO Q8H 10/20/2013 Inactive Zoloft 50 mg tablet RxNorm: 329883 1/2 Tablet(s) PO x 6 days then on1 tablet daily 10/20/2013 11/18/2013 Inactive Loestrin Fe 06/01 (28) 1 mg-20 mcg tablet RxNorm: 0675143 1 Table t(s) PO QD 10/20/2013 05/03/2014 Inactive phenazopyridine 100 mg tablet RxNorm: 6493381 1 Tablet(s) PO Q8H 06/26/2013 Inactive Macrobid 100 mg capsule RxNorm: 857771 1 Capsule(s) PO BID 06/25/19 14 07/04/2013 Inactive phenazopyridine 100 mg tablet RxNorm: 7714001 1 Tablet(s) PO Q8H 06/24/2013 Inactive Macrobid 100 mg capsule RxNorm: 120038 1 Capsule(s) PO BID 07/25/1908/02/2010 Inactive Apri 0.15 mg-30 mcg tablet RxNorm: 964234 1 Tablet(s) PO QD As directed. No Start Date 06/23/2013 Inactive omeprazole 40 mg capsule,delayed release RxNorm: 300852 1 Capsule(s) PO QD for stomach No Start Date 06/23/2013 Inactive naproxen 500 mg tablet RxNorm: 857830 1 Tablet(s) PO BID No Start D ate 06/15/2014 Inactive hydrocodone 10 mg-acetaminophen 325 mg tablet RxNorm: 510932 Tablet(s) PO as needed for pain No Start Date 12/22/2015 Inactive Zoloft 50 mg tablet RxNorm: 909365 1 Tablet(s) PO QD No Start Date Inactive hydrocodone 5 mg-acetaminophen 325 mg tablet RxNorm: 275678 1 Tablet(s) PO QID as needed for pain No Start Date 09/14/2013 Inactive Medication Administered No Medication Administered data Immunizations No Immunization data Results Observation Observation Code Item Item Code Result Date S ervice Location VAG PROF [id number] PH TNP:Improper Specimen Unknown VAG PROF [id number] Whiff TNP:Improper Specimen 020 Unknown VAG PROF [id number] WBC Vaginal TNP:Improper Specimen 11/15 Unknown VAG PROF [id number] [employer]INE[employer] Lactobac TNP:Improper Specimen 11/15 Unknown VAG PROF [id number] Clue Cells TNP:Improper Specimen 2019 Unknown VAG PROF [id number] LIN[employer] ENGINEER Curved GNR TNP:Improper Specimen 10/2019 Unknown VAG PROF [id number] Yeast Vaginal TNP:Improper Specimen 10/2019 Unknown VAG PROF [id number] LIN[employer] ENGINEER SM GVB TNP:Improper Specimen 020 Unknown VAG PROF [id number] Trichomonas TNP:Improper Specimen 11/15 Unknown VAG PROF [id number] LIN[employer] ENGINEER BV Stain TNP:Improper Specimen 11/15 Unknown VAG PROF [id number] LIN[employer] ENGINEER Intp TNP:Improper Specimen 020 Unknown VAG PROF [id number] Conf BV Stain TNP:Improper Specimen 10/2019 Unknown LIPASE 18469 LIPASE 14 IU/L 01/28/2014 Unknown COMPLETE BLOOD COUNT [id number] WBC 6.5 10e9/L 01/29/20 14 Unknown COMPLETE BLOOD COUNT [id number] RBC 4.54 10e12/L 2013 Unknown COMPLETE BLOOD COUNT [id number] HGB 12.1 g/dL 4 Unknown COMPLETE BLOOD COUNT [id number] HCT DET 38.0 % 4 Unknown COMPLETE BLOOD COUNT [id number] MCV 83.7 fL 4 Unknown COMPLETE BLOOD COUNT [id number] MCH 26.7 pg 4 Unknown COMPLETE BLOOD COUNT [id number] MCHC 31.8 g/dL 4 Unknown COMPLETE BLOOD COUNT [id number] PLT 218 10e9/L 01/29/20 14 Unknown COMPLETE BLOOD COUNT [id number] MPV 12.8 fL 4 Unknown COMPLETE BLOOD COUNT [id number] RACHNA % 56.5 % 4 Unknown COMPLETE BLOOD COUNT [id number] LY % 32.3 % 4 Unknown COMPLETE BLOOD COUNT [id number] MON % 8.6 % 4 Unknown COMPLETE BLOOD COUNT [id number] EOS % 2.1 % 4 Unknown COMPLETE BLOOD COUNT [id number] BASO % 0.5 % 4 Unknown COMPLETE BLOOD COUNT [id number] RDW 18.4 % 4 Unknown COMPLETE BLOOD COUNT [id number] ABS RACHNA 3.67 10e9/L 014 Unknown COMPLETE BLOOD COUNT [id number] ABS LYMPH 2.10 10e9/L 014 Unknown COMPLETE BLOOD COUNT [id number] ABS MONO 0.56 10e9/L 014 Unknown COMPLETE BLOOD COUNT [id number] ABS EOS 0.14 10e9/L 014 Unknown COMPLETE BLOOD COUNT [id number] ABS BASO 0.03 10e9/L 014 Unknown COMPLETE BLOOD COUNT [id number] RDW-SD 55.5 fL 4 Unknown COMPREHENSIVE METABOLIC 60198 AST 13 U/L 2013 Unknown COMPREHENSIVE METABOLIC 01226 ALT 7 IU/L 2013 Unknown COMPREHENSIVE METABOLIC 40648 BUN 8 MG/DL 2013 Unknown COMPREHENSIVE METABOLIC 27310 ALBUMIN 4.5 GM/DL 2013 Unknown COMPREHENSIVE METABOLIC 70940 CHLORIDE 106 MMOL/L 01/28 Unknown COMPREHENSIVE METABOLIC 93710 BILI TOT 0.4 MG/DL 2013 Unknown COMPREHENSIVE METABOLIC 21970 ALK PHOS 55 U/L 2013 Unknown COMPREHENSIVE METABOLIC 78163 SODIUM 138 MMOL/L 01/28 Unknown COMPREHENSIVE METABOLIC 03121 CREATININE 0.73 MG/DL 01/11 Unknown COMPREHENSIVE METABOLIC 52150 CALCIUM 9.9 MG/DL 2013 Unknown COMPREHENSIVE METABOLIC 04529 POTASSIUM 3.8 MMOL/L 01/28 Unknown COMPREHENSIVE METABOLIC 66888 PROT TOT 7.4 GM/DL 2013 Unknown COMPREHENSIVE METABOLIC 25698 Glucose 96 MG/DL 2013 Unknown COMPREHENSIVE METABOLIC 78109 BICARB 27 MMOL/L 2013 Unknown COMPREHENSIVE METABOLIC 44769 ANION GAP 5 MEQ/L 2013 Unknown AMYLASE 43456 AMYLASE 42 IU/L 01/28/2014 Unknown GFR CALC [id number] GFR AA >60 ML/MIN 01/28/2014 Unknown GFR CALC [id number] GFR NON-AA >60 ML/MIN 01/28/2014 Unknown Procedures Procedure Codes Date URINE TEST CPT-4: 72235 11/16/2019 SPECIMEN HANDLING OFFICE-LAB CPT-4: 55553 11/16/2019 URINE CULTURE/ COLONY COUNT CPT-4: 51015 06/15/2019 URINALYSIS NONAUTO W/O SCOPE CPT-4: 96521 06/05/2019 CEFTRIAXONE SODIUM INJECTION CPT-4: J0696 06/05/2019 THER/PROPH/DIAG INJ SC/IM CPT-4: 48576 06/05/2019 URINE CULTURE/ COLONY COUNT CPT-4: 66910 06/05/2019 URINE CULTURE/ COLONY COUNT CPT-4: 43793 03/02/2019 THER/PROPH/DIAG INJ SC/IM CPT-4: 30098 02/16/2019 URINE CULTURE/ COLONY COUNT CPT-4: 40571 02/16/2019 URINALYSIS NONAUTO W/O SCOPE CPT-4: 23692 02/16/2019 URINE TEST CPT-4: 21267 02/16/2019 THER/PROPH/DIAG INJ SC/IM CPT-4: 41640 05/21/2018 THER/PROPH/DIAG INJ SC/IM CPT-4: 51731 11/26/2017 THER/PROPH/DIAG INJ SC/IM CPT-4: 74238 08/27/2017 THER/PROPH/DIAG INJ SC/IM CPT-4: 84248 06/06/2017 URINALYSIS NONAUTO W/O SCOPE CPT-4: 01818 06/06/2017 GC/CHLAMYDIA DNA (BD-ProbeTe) CPT-4: 96127|36949 8 URINE CULTURE/ COLONY COUNT CPT-4: 31365 06/06/2017 THER/PROPH/DIAG INJ SC/IM CPT-4: 20187 01/04/2017 SPECIMEN HANDLING OFFICE-LAB CPT-4: 13568 10/18/2016 THER/PROPH/DIAG INJ SC/IM CPT-4: 31289 10/12/2016 INFLUENZA ASSAY W/OPTIC CPT-4: 37447 08/08/2016 THER/PROPH/DIAG INJ SC/IM CPT-4: 37894 07/25/2016 THER/PROPH/DIAG INJ SC/IM CPT-4: 96869 05/03/2016 THER/PROPH/DIAG INJ SC/IM CPT-4: 95430 02/20/2016 URINE TEST CPT-4: 90173 02/20/2016 AEROBIC WOUND CULTURE & STN CPT-4: 05309 12/23/2015 THER/PROPH/DIAG INJ SC/IM CPT-4: 31312 11/07/2015 URINE TEST CPT-4: 92248 11/07/2015 THER/PROPH/DIAG INJ SC/IM CPT-4: 69803 08/01/2015 THER/PROPH/DIAG INJ SC/IM CPT-4: 13192 05/11/2015 THER/PROPH/DIAG INJ SC/IM CPT-4: 21521 02/16/2015 THER/PROPH/DIAG INJ SC/IM CPT-4: 95782 11/29/2014 THER/PROPH/DIAG INJ SC/IM CPT-4: 83668 09/09/2014 URINE TEST CPT-4: 32453 06/16/2014 THER/PROPH/DIAG INJ SC/IM CPT-4: 16396 06/16/2014 ROUTINE VENIPUNCTURE CPT-4: 33246 10/07/2013 COMPLETE CBC W/AUTO DIFF WBC CPT-4: 55991 10/07/2013 CHORIONIC GONADOTROPIN TEST CPT-4: 44902 10/07/2013 URINE TEST CPT-4: 65531 09/15/2013 URINALYSIS NONAUTO W/O SCOPE CPT-4: 44541 06/24/2013 URINE CULTURE/ COLONY COUNT CPT-4: 76307 06/24/2013 URINE TEST CPT-4: 39399 09/08/2010 URINALYSIS NONAUTO W/O SCOPE CPT-4: 10112 07/24/2010 URINE CULTURE/ COLONY COUNT CPT-4: 66280 07/24/2010 DESTRUCT PREMALG LESION (Cryosurgery) CPT-4: 14116 DESTRUCT PREMALG LES 2-14 CPT-4: 12882 03/08/2010 Vital Signs Date Vital 11/16/2019 Blood Pressure 1: 119/75 Code: 8480-6 BMI: 24.4 Code: 12633-3 Heart Rate 1: 112 bpm Height: 5'9" Respiratory Rate: 15 bpm SpO2: 98% Tempera ture: 36.8 (C) / 98.2 (F) Weight: 165 lbs 07/07/2019 Blood Pressure 1: 126/82 Code: 8480-6 Heart Rate 1: 100 bpm SpO2: 99% Temperature: 36.8 (C) / 98.2 (F) 06/05/2019 Blood Pressure 1: 131/82 Code: 8480-6 BMI: 26.3 Code: 88698-3 Heart Rate 1: 109 bpm Height: 5'9" Respiratory Rate: 16 bpm SpO2: 99% Tempera ture: 36.7 (C) / 98.1 (F) Weight: 178 lbs 03/16/2019 Blood Pressure 1: 132/86 Code: 8480-6 Heart Rate 1: 73 bpm SpO2: 99% Temperature: 36.6 (C) / 97.9 (F) Weight: 158 lbs 03/03/2018 Blood Pressure 1: 120/88 Code: 8480-6 BMI: 23.9 Code: 19492-4 Heart Rate 1: 81 bpm Height: 5'9" Respiratory Rate: 18 bpm SpO2: 99% Tempera ture: 36.1 (C) / 97.0 (F) Weight: 162 lbs 10/18/2016 Blood Pressure 1: 108/78 Code: 8480-6 BMI: 22.6 Code: 58041-0 Heart Rate 1: 100 bpm Height: 5'9" Respiratory Rate: 20 bpm SpO2: 98% Tempera ture: 37.1 (C) / 98.8 (F) Weight: 153 lbs 08/08/2016 Blood Pressure 1: 114/78 Code: 8480-6 Heart Rate 1: 102 bpm Respiratory Rate: 20 bpm SpO2: 98% Temperature: 36.4 (C) / 97.6 (F) We ight: 152 lbs 05/15/2016 Blood Pressure 1: 124/80 Code: 8480-6 BMI: 23.2 Code: 51272-5 Heart Rate 1: 100 bpm Height: 5'9" Respiratory Rate: 20 bpm Temperature: 37 .0 (C) / 98.6 (F) Weight: 157 lbs 12/23/2015 Blood Pressure 1: 124/78 Code: 8480-6 BMI: 23.0 Code: 78874-2 Heart Rate 1: 92 bpm Height: 5'9" Respiratory Rate: 20 bpm SpO2: 97% Tempera ture: 36.9 (C) / 98.5 (F) Weight: 156 lbs 01/26/2015 Blood Pressure 1: 118/78 Code: 8480-6 BMI: 21.3 Code: 72759-0 Heart Rate 1: 100 bpm Height: 5'9" Respiratory Rate: 20 bpm SpO2: 97% Tempera ture: 36.6 (C) / 97.8 (F) Weight: 144 lbs 06/16/2014 Blood Pressure 1: 118/78 Code: 8480-6 BMI: 23.5 Code: 24608-8 Heart Rate 1: 78 bpm Height: 5'9" Respiratory Rate: 18 bpm Temperature: 36 .1 (C) / 97.0 (F) Weight: 159 lbs 01/28/2014 Blood Pressure 1: 12478 Code: 8480-6 BMI: 23.2 Code: 50745-1 Heart Rate 1: 88 bpm Height: 5'9" Respiratory Rate: 22 bpm Temperature: 36 .1 (C) / 97.0 (F) Weight: 157 lbs 12/10/2013 Blood Pressure 1: 124/70 Code: 8480-6 BMI: 23.0 Code: 34608-1 Heart Rate 1: 82 bpm Height: 5'9" Respiratory Rate: 20 bpm Temperature: 36 .2 (C) / 97.2 (F) Weight: 156 lbs 10/20/2013 Blood Pressure 1: 118/82 Code: 8480-6 Heart Rate 1: 84 bpm Respiratory Rate: 22 bpm Temperature: 36.5 (C) / 97.7 (F) Weight: 150 lbs 10/07/2013 Blood Pressure 1: 120/80 Code: 8480-6 BMI: 22.2 Code: 78204-6 Heart Rate 1: 68 bpm Height: 5'9" Respiratory Rate: 22 bpm Temperature: 36 .2 (C) / 97.2 (F) Weight: 150 lbs 09/15/2013 Blood Pressure 1: 118/68 Code: 8480-6 BMI: 22.0 Code: 36505-5 Heart Rate 1: 78 bpm Height: 5'9" Respiratory Rate: 20 bpm Temperature: 36 .1 (C) / 97.0 (F) Weight: 149 lbs 06/24/2013 Blood Pressure 1: 112/74 Code: 8480-6 Heart Rate 1: 74 bpm Respiratory Rate: 20 bpm Temperature: 36.6 (C) / 97.9 (F) Weight: 150 lbs 03/05/2013 Blood Pressure 1: 126/88 Code: 8480-6 BMI: 23.5 Code: 02786-8 Heart Rate 1: 80 bpm Height: 5'9" Respiratory Rate: 20 bpm Temperature: 36 .6 (C) / 97.9 (F) Weight: 159 lbs 02/09/2013 Blood Pressure 1: 110/68 Code: 8480-6 BMI: 21.9 Code: 96548-0 Heart Rate 1: 74 bpm Height: 5'9" Respiratory Rate: 22 bpm Temperature: 36 .8 (C) / 98.2 (F) Weight: 148 lbs 09/08/2010 Blood Pressure 1: 124/90 Code: 8480-6 BMI: 21.4 Code: 32736-4 Height: 5'10" Temperature: 36.4 (C) / 97.6 [...] painful Encounters Encounter Performer Location Codes Date ([id number]) PREV VISIT EST AGE 18-39 Diagnosis: Encounter for gynecological examination (general) (routine) with abnormal findings[ICD10: Z01.411] Diagnosis: Encounter for general adult medical examination without abnormal findings[ICD10: Z00.00] Diagnosis: Vaginitis[ICD10: N76.0] Diagnosis: Left breast mass[ICD10: N63.20] Diagnosis: Dense breast tissue[ICD10: R92.2] Diagnosis: Bilateral lower extremity edema[ICD10: R60.0] Diagnosis: control counseling[ICD10: Z30.09] Keyanna TALAMANTES DO [facility] CPT-4: 89814 11/16/2019 ([id number]) OFFICE/OUTPATIENT VISIT EST Diagnosis: Urethritis[ICD10: N34.2] Diagnosis: History of renal stone[ICD10: Z87.442] Josefa TALAMANTES i3 membrane [facility] CPT-4: 29566 07/07/2019 ([id number]) NURSE/OUTPATIENT VISIT EST Diagnosis: Urinary tract infection[ICD10: N39.0] Josefa Oneilgaetanonena MELANIA NOLVIA Waylon TALAMANTES [employer] [facility] CPT-4: 64528 06/15/2019 ([id number]) OFFICE/OUTPATIENT VISIT EST Diagnosis: Dysuria[ICD10: R30.0] Diagnosis: Pelvic pain in female[ICD10: R10.2] Keyanna TALAMANTES [employer] [facility] CPT-4: 82391 06/05/2019 ([id number]) OFFICE/OUTPATIENT VISIT EST Diagnosis: Left wrist pain[ICD10: M25.532] Diagnosis: Swelling of left upper extremity[ICD10: M79.89] Keyanna TALAMANTES i3 membrane [facility] CPT-4: 41927 03/16/2019 ([id number]) NURSE/OUTPATIENT VISIT EST Diagnosis: Urinary tract infection[ICD10: N39.0] Josefa Oneilgaetanonena MELANIA NOLVIA Waylon TALAMANTES i3 membrane [facility] CPT-4: 37470 03/02/2019 ([id number]) NURSE/OUTPATIENT VISIT EST Diagnosis: Irregular menstruation, unspecified[ICD10: N92.6] Diagnosis: Urinary tract infection[ICD10: N39.0] Josefa Thadmamadou VELÁZQUEZ NOLVIA Waylon [facility]ILNDNENA [facility] CPT-4: 30520 02/16/2019 ([id number]) NURSE/OUTPATIENT VISIT EST Diagnosis: Irregular menstruation, unspecified[ICD10: N92.6] Josefa TALAMANTES DO [facility] CPT-4: 02875 05/21/2018 ([id number]) OFFICE/OUTPATIENT VISIT EST Diagnosis: Irregular menstruation, unspecified[ICD10: N92.6] Diagnosis: Diseases of lips[ICD10: K13.0] Diagnosis: 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] Keyanna TALAMANTES DO [facility] CPT-4: 85648 03/03/2018 ([id number]) NURSE/OUTPATIENT VISIT EST Diagnosis: Irregular menstruation, unspecified[ICD10: N92.6] Josefa TALAMANTES DO [facility] CPT-4: 73499 11/26/2017 ([id number]) OFFICE/OUTPATIENT VISIT EST Diagnosis: Irregular menstruation, unspecified[ICD10: N92.6] Josefa TALAMANTES DO [facility] CPT-4: 60414 08/27/2017 ([id number]) OFFICE/OUTPATIENT VISIT EST Diagnosis: Dysuria[ICD10: R30.0] Diagnosis: Irregular menstruation, unspecified[ICD10: N92.6] Josefa TALAMANTES DO [facility] CPT-4: 65978 06/06/2017 ([id number]) OFFICE/OUTPATIENT VISIT EST Diagnosis: Irregular menstruation, unspecified[ICD10: N92.6] Josefa TALAMANTES DO [facility] CPT-4: 39854 01/04/2017 ([id number]) PREV VISIT EST AGE 18-39 Diagnosis: Encounter for general adult medical examination without abnormal findings[ICD10: Z00.00] Diagnosis: Encounter for gynecological examination (general) (routine) without abnormal findings[ICD10: Z01.419] Diagnosis: Gastro-esophageal reflux disease without esophagitis[ICD10: K21.9] Diagnosis: Dysphagia, pharyngeal phase[ICD10: R13.13] Josefa TALAMANTES DO [employer] CPT-4: 35369 10/18/2016 ([id number]) OFFICE/OUTPATIENT VISIT EST Diagnosis: Irregular menstruation, unspecified[ICD10: N92.6] [facility]fa [facility]ANTES [facility] CPT-4: 09031 10/12/2016 ([id number]) OFFICE/OUTPATIENT VISIT EST Diagnosis: Fever, unspecified[ICD10: R50.9] Diagnosis: Influenza due to identified novel influenza A virus with other respiratory manifestations[ICD10: J09.X2] Catrina TALAMANTES DO [facility] CPT-4: 72999 08/08/2016 ([id number]) OFFICE/OUTPATIENT VISIT EST Diagnosis: Irregular menstruation, unspecified[ICD10: N92.6] Josefa TALAMANTES DO [facility] CPT-4: 82234 07/25/2016 ([id number]) OFFICE/OUTPATIENT VISIT EST Diagnosis: Right upper quadrant pain[ICD10: R10.11] Diagnosis: Unspecified abdominal pain[ICD10: R10.9] Josefa TALAMANTES DO [facility] CPT-4: 21486 05/15/2016 ([id number]) OFFICE/OUTPATIENT VISIT EST Diagnosis: Irregular menstruation, unspecified[ICD10: N92.6] Josefa TALAMANTES DO [facility] CPT-4: 85482 05/03/2016 ([id number]) OFFICE/OUTPATIENT VISIT EST Diagnosis: Irregular menstruation, unspecified[ICD10: N92.6] Josefa TALAMANTES DO [facility] CPT-4: 37556 02/20/2016 OFFICE/OUTPATIENT VISIT EST Diagnosis: Cutaneous abscess of buttock[ICD10: L02.31] Kitty Caldera JOSEFA TALAMANTES [facility] CPT-4: 93541 12/23/2015 ([id number]) OFFICE/OUTPATIENT VISIT EST Diagnosis: Irregular menstruation, unspecified[ICD10: N92.6] Josefa TALAMANTES DO [facility] CPT-4: 74643 11/07/2015 ([id number]) OFFICE/OUTPATIENT VISIT EST Diagnosis: Irregular menstruation, unspecified[ICD10: N92.6] Josefa TALAMANTES DO [facility] CPT-4: 40104 08/01/2015 ([id number]) OFFICE/OUTPATIENT VISIT EST Diagnosis: Irregular menstruation, unspecified[ICD10: N92.6] Josefa TALAMANTES [facility] CPT-4: 17900 05/11/2015 ([id number]) OFFICE/OUTPATIENT VISIT EST Diagnosis: Irregular menstruation, unspecified[ICD10: N92.6] Josefa TALAMANTES DO [facility] CPT-4: 28928 02/16/2015 OFFICE/OUTPATIENT VISIT EST Diagnosis: SINUSITIS, ACUTE[ICD9: 461.9] Malgorzata TALAMANTES DO [facility] CPT-4: 07773 01/26/2015 ([id number]) OFFICE/OUTPATIENT VISIT EST Diagnosis: IRREGULAR MENSTRUATION[ICD9: 626.4] Josefa TALAMANTES [facility] CPT-4: 78390 11/29/2014 ([id number]) OFFICE/OUTPATIENT VISIT EST Diagnosis: IRREGULAR MENSTRUATION[ICD9: 626.4] Josefa TALAMANTES [facility] CPT-4: 77124 09/09/2014 ([id number]) OFFICE/OUTPATIENT VISIT EST Diagnosis: IRREGULAR MENSTRUATION[ICD9: 626.4] Diagnosis: General counseling and advice on contraceptive management[ICD9: V25.09] Diagnosis: Anxiety and depression[ICD9: 300.4] Malgorzata VillanuevaEringregoriosangita ALIE ALANIZ SMaria Teresa [facility] CPT-4: 47297 06/16/2014 OFFICE/OUTPATIENT VISIT EST Diagnosis: Right upper quadrant pain[ICD9: 789.01] Malgorzata VillanuevaEringregoriosangita JOSEFA ONEILNDER [facility] CPT-4: 27792 01/28/2014 OFFICE/OUTPATIENT VISIT EST Diagnosis: Right upper quadrant pain[ICD9: 789.01] Malgorzata VillanuevaErinjuanjo ONEILNDER [facility] CPT-4: 19341 12/10/2013 OFFICE/OUTPATIENT VISIT EST Diagnosis: Anxiety and depression[ICD9: 300.4] Malgorzata VillanuevaEringregoriosangita ALIE ALANIZ SMaria Teresa [facility] CPT-4: 59688 10/20/2013 OFFICE/OUTPATIENT VISIT EST Diagnosis: Menorrhagia[ICD9: 626.2] Malgorzatasa Janel CULVER [facility] CPT-4: 59198 10/07/2013 OFFICE/OUTPATIENT VISIT EST Diagnosis: IRREGULAR MENSTRUATION[ICD9: 626.4] Malgorzata TALAMANTES DO [facility] CPT-4: 15963 09/15/2013 OFFICE/OUTPATIENT VISIT EST Diagnosis: HEMATURIA NOS[ICD9: 599.70] Diagnosis: Abdominal discomfort in right upper quadrant[ICD9: 789.01] Malgorzata TALAMANTES DO [facility] CPT-4: 67188 06/24/2013 ([id number]) OFFICE/OUTPATIENT VISIT EST Diagnosis: ABDOMINAL PAIN[ICD9: 789.00] Diagnosis: GERD[ICD9: 530.81] Josefa TALAMANTES DO [facility] CPT-4: 69952 03/05/2013 OFFICE/OUTPATIENT VISIT EST Diagnosis: General counseling and advice on contraceptive management[ICD9: V25.09] Diagnosis: IRREGULAR MENSTRUATION[ICD9: 626.4] Malgorzata TALAMANTES DO [facility] CPT-4: 54548 02/09/2013 ([id number]) OFFICE/OUTPATIENT VISIT EST Justine TALAMANTES DO [facility] CPT-4: 49505 09/08/2010 ([id number]) OFFICE/OUTPATIENT VISIT EST Justine TALAMANTES DO [facility] CPT-4: 83134 07/24/2010 Plan of Care Planned Activity Notes Codes Status Date Care Plan: Belle BOSE ADD ON TO LABS SENT ON 11/16/2019 Pending 11/17/2019 Visit Diagnosis Plan: Encounter for gyne cological examination (general) (routine) with abnormal findings Discussion: [place] [facility] order written and given to patient. [...] ICD-10 : R60.0 11/16/2019 Appointment: Keyanna Mejía [address] [place] [address] Annual Well Visit 11/16/2019 Visit Diagnosis Plan: Urethritis Discussion: Diflucan and topical nystatin ICD-9 : 597.80 ICD-10 : N34.2 07/07/2019 Visit Diagnosis Plan: History of renal stone Discussio n: Flomax Push water If not improving within 48hrs or if worsening then will need CT scan to assess for stone ICD-9 : V13.01 ICD-10 : Z87.442 07/07/2019 Appointment: Josefa Talamantes WPtel: [address] [place] [address] ACUTE ILLNESS 07/07/2019 Patient Education: nystatin- [employer] Coupon [id number] [email or web address] Completed 07/07/2019 Appointment: Josefa Talamantes WPtel: [address] [place] [address] UA 06/15/2019 Visit Diagnosis Plan: Dysuria Discussion: due to recur rent pain and worsening symptoms, rocephin 1 gm given in office. will send urine off for culture and call on saturday if any changes needed. instructed to push fluids through the w eekend and go to urgent care with any worsening. ICD-9 : 788.1 ICD-10 : R30.0 06/05/2019 Appointment: Keyanna Mejía [address] FOLLOW UP 06/05/2019 Visit Diagnosis Plan: [...] : M25.532 03/16/2019 Appointment: Keyanna Mejía [address] Hospital Follow Up 03/16/2019 Appointment: Josefa Talamantes WPtel: [address] [place] [address] [place] UA 03/02/2019 Appointment: Josefa Talamantes WPtel: [address] [place], [place] [phone] [place] INJECTION 02/16/2019 Appointment: Josefa Talamantes WPtel: [address] [place], [place] [phone] [place] INJECTION 05/21/2018 Visit Diagnosis Plan: Diseases [...] performed in office and negative. 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 had pap october of 2016. not due until 2019 or patient turns 29. ICD-9 : 626.4 ICD-10 : N92.6 03/03/2018 Appointment: Keyanna Mejía [address] ACUTE ILLNESS 03/03/2018 Patient Education: Patient Medication Summary Completed 03/03/2018 Care Plan: US EXAM OF HEAD AND NECK thyroid LOIN C : 85610-7 Pending 03/03/2018 Appointment: Josefa Talamantes WPtel: [address] [place], [place] [phone] [place] CANCELED 02/27/2018 Appointment: Josefa Talamantes WPtel: [address] [place], [place] [phone] [place] INJECTION 11/26/2017 Patient Education: Patient Medication Summary Completed 11/26/2017 Appointment: Josefa Talamantes WPtel: [address] [place], [place] [phone] [place] INJECTION 08/27/2017 Patient Education: Patient Medication Summary Completed 08/27/2017 Appointment: Josefa Talamantes WPtel: [address] [place], [place] [phone] [place] INJECTION 06/06/2017 Patient Education: Patient Medication Summary Completed 06/06/2017 Appointment: Josefa Talamantes WPtel: [address] [place], [place] [phone] [place] INJECTION 01/04/2017 Patient Education: Patient Medication Summary Completed 01/04/2017 Appointment: Josefa Talamantes WPtel: [address] [place], [place] [id number] [place] 11/19 lm `sl 11/21 lm `sl NO SHOW 11/22/19 17 Patient Education: Patient Medication Summary Completed 10/22/2016 Care Plan: US EXAM OF HEAD AND NECK Thyroid Ultrasound LOIN C : 74267-6 Pending 10/22/2016 Visit Diagnosis Plan: Gastro-esophageal reflux [...] : R13.13 10/18/2016 Appointment: Josefa Talamantes WPtel: [address] [place], [place] [id number] [place] 6/7 lm `sl Annual Well Visit 10/18/2016 Patient Education: Patient Medication Summary Completed 10/18/2016 Appointment: Josefa Talamantes WPtel: [address] [place] [phone] [place] INJECTION 10/12/2016 Patient Education: Patient Medication Summary Completed 10/12/2016 Visit Diagnosis Plan: Influenza due to i dentified novel influenza A virus with other respiratory manifestations Discussion: Flu A positive Rx as above Supportive care otherwise Contagious precautions discussed Notify kids' provider of exposure for their instructions ICD-9 : 488.02 ICD-10 : J09.X2 08/08/2016 Appointment: Catrina Bran [address] [place], [place] [id number] ACUTE ILLNESS 08/08/2016 Patient Education: Patient Medication Summary Completed 08/08/2016 Appointment: Josefa Talamantes WPtel: [address] [place], [place] [phone] [place] INJECTION 07/25/2016 Patient Education: Patient Medication Summary Completed 07/25/2016 Visit Plan: Finish abx and then recultur e 48hrs after completion Add levsin and zorvolex 05/15/2016 Appointment: Josefa Talamantes WPtel: [address] [place] [phone] [place] 1/ lm `sl 05/15 confirmed~ Hospital Follow Up 0 05/15/2016 Patient Education: Patient Medication Summary Completed 05/15/2016 Appointment: Catrina Bran [address] [place], [place] [phone] [place] 05/09 admitted into the hospital last night~ ACUTE ILLNESS 05/09/2016 Appointment: Josefa Talamantes WPtel: [address] [place], [place] [phone] [place] INJECTION 05/03/2016 Patient Education: Patient Medication Summary Completed 05/03/2016 Appointment: Josefa Talamantes WPtel: [address] [place], [place] [phone] [place] INJECTION 02/20/2016 Patient Education: Patient Medication Summary Completed 02/20/2016 Visit Plan: ERx for Bactrim and Bactroba n Called to [facility] Ultram 50mg 1 po q 4-6 hours prn pain #20 Warm moist heat to area qid Watch for s/s of worsening, go to over weekend Discussed SE of meds including s/s of SJS which would require an ER visit C&S obtained 12/23/2015 Appointment: Kitty Caldera WPtel: [address] [place], [place] [phone] [place] ACUTE ILLNESS 12/23/2015 Patient Education: Patient Medication Summary Completed 12/23/2015 Appointment: Josefa Talamantes WPtel: [address] [place], [place] [phone] [place] INJECTION 11/07/2015 Patient Education: Patient Medication Summary Completed 11/07/2015 Appointment: Josefa Talamantes WPtel: [address] [place], [place] [phone] [place] INJECTION 08/01/2015 Patient Education: Patient Medication Summary Completed 08/01/2015 Appointment: Josefa Talamantes WPtel: [address] [place], [place] [phone] [place] INJECTION 05/11/2015 Patient Education: Patient Medication Summary Completed 05/11/2015 Appointment: Malgorzata Islas WPtel: [address] [place], [place] [phone] [place] PAP 04/05/2015 Appointment: Josefa Talamantes WPtel: [address] [place] [phone] [place] INJECTION 02/16/2015 Patient Education: Patient Medication Summary Completed 02/16/2015 Visit Plan: Daily nasal saline rinses Fl onase nasal spray and daily Zyrtec Medrol dose pack Z-jhonathan as directed 01/26/2015 Appointment: Malgorzata Islas WPtel: [address] [place], [place] [phone] ACUTE ILLNESS 01/26/2015 Patient Education: Patient Medication Summary Completed 01/26/2015 Appointment: Josefa Talamantes WPtel: [address] [place], [place] [phone] INJECTION 11/29/2014 Patient Education: Patient Medication Summary Completed 11/29/2014 Appointment: Josefa Talamantes WPtel: [address] [place], [place] [phone] INJECTION 09/09/2014 Patient Education: Patient Medication Summary Completed 09/09/2014 Appointment: Malgorzata Islas WPtel: [address] [place], [place] [phone] FOLLOW UP 06/16/2014 Patient Education: Patient Medication Summary Completed 06/16/2014 Appointment: Malgorzata Islas WPtel: [address] [place], [place] [phone] 06/02/14 appointment scheduled 06/03/14 no showed PAP 06/03/2014 Appointment: Malgorzata Islas WPtel: [address] [place], [place] [phone] FOLLOW UP 01/28/2014 Patient Education: Patient Medication Summary Completed 01/28/2014 Care Plan: COMPREHEN METABOLIC PANEL [place] : 68[address]-5 Ordered 01/28/2014 Care Plan: AMYLASE Pending 4 Appointment: Malgorzata Islas WPtel: [address] [place], [place] [phone] FOLLOW UP 12/10/2013 Patient Education: Patient Medication Summary Completed 12/10/2013 Appointment: Malgorzata Islas WPtel: [address] [place], [place] [phone] 11/11 vm 11/12 No Show FOLLOW UP 11/12/2013 Appointment: Malgorzata Islas WPtel: [address] [place], [place] [phone] [place] FOLLOW UP 10/20/2013 Patient Education: Patient Medication Summary Completed 10/20/2013 Visit Plan: Quantitative Hcg and CBC tod ay. Transvaginal/Transabdominal sonogram stat Discussed with LOG CUTTER and [facility] 343 so will recheck in 1week as long as not worsening 10/07/2013 Appointment: Malgorzata Islas WPtel: [address] [place], [place] [id number] ACUTE ILLNESS 10/07/2013 Patient Education: Patient Medication Summary Completed 10/07/2013 Appointment: Malgorzata Islas WPtel: [address] [place], [place] [id number] ACUTE ILLNESS 09/15/2013 Patient Education: Patient Medication Summary Completed 09/15/2013 Appointment: Malgorzata Islas WPtel: [address] [place], [place] [phone] ACUTE ILLNESS 06/24/2013 Patient Education: Patient Medication Summary Completed 06/24/2013 Appointment: Malgorzata Islas WPtel: [address] [place] [address] [place] appt was scheduled today then patient no showed the visit ACUTE ILLNESS 05/21/2013 Visit Plan: Check CMP, CBC, UA CT scan o f abdomen Omeprazole 03/05/2013 Appointment: Josefa Talamantes WPtel: [address] [place], [place] [phone] ACUTE ILLNESS 03/05/2013 Appointment: Josefa Talamantes WPtel: [address] [place], [place] [phone] 03/02 canceled, wrong patient FOLLOW UP Patient Education: Patient Medication Summary Completed 03/05/2013 Appointment: Malgorzata Islas WPtel: [address] [place], [place] [phone] [place] ACUTE ILLNESS 02/09/2013 Patient Education: Patient Medication Summary Completed 02/09/2013 Appointment: Justine Ortega WPtel: [address] [place] [address] ACUTE ILLNESS 09/08/2010 Patient Education: Patient Medication Summary Completed 09/08/2010 Appointment: Justine Ortega WPtel: [address] [place] [address] [place] PAP 08/08/2010 Appointment: Justine Ortega WPtel: [address] [place] [address] ACUTE ILLNESS 07/24/2010 Patient Education: Patient Medication Summary Completed 07/24/2010 Visit Plan: All warts shaved with 11-rekha de scalpel and then cryotherapy x3 Will followup with DNCB treatment 03/08/2010 Appointment: Josefa Talamantes WPtel: [address] [place] [address] ACUTE ILLNESS 03/08/2010 Patient Education: Patient Medication Summary Completed 03/08/2010 Appointment: Josefa Talamantes WPtel: [address] [place] [address] [place] PAP 09/14/2009 Referral: Roney Galloway WPtel: [address] Referral Initiated Referral: Brian Floyd WPtel: [address] Referral Initiated Referral: Referral Initiated Instructions [...] CBC today. Transvaginal/Transabdominal sonogram stat Discussed with LOG CUTTER and [facility] 343 so will recheck in [...]
--- OUTSIDE RECORDS SUMMARY | 2019-12-11 22:01 | XMS REPORT | CCD ---
Author Author Brenda Talamantes D.O. Organization [facility] Address [address] [place] [address] Phone Care Team Providers Care [place] Instructor Name Role Phone Josefa Talamantes D.O., PP Unavailable CCM Unavailable Summary Purpose Interface Exchange Insurance Providers Payer name Policy type / Coverage type Covered alliance party ID Effective Begin Date Effective End Date [facility]ETNA [facility] Commercial Insurance [id number] Unknown Family History Family History data not found Social History Social History Element Codes Description Effective Dates Tobacco history SNOMED CT: 142518118 Unknown if ever smoked 01/12 Allergies, Adverse [...] Date Active Diflucan 100 mg tablet RxNorm: 914605 1 Tablet(s) Oral QD 07/07/2019 07/14/2019 Inactive Flomax 0.4 mg capsule RxNorm: 760146 1 Capsule(s) Oral QPM for kidney stone 07/07/2019 08/06/2019 Inactive nystatin 100,000 unit/gram topical cream RxNorm: 378525 Application Topical two times a day to periurethral area 07/07/2019 11/16/2019 Inactive Bactrim DS 800 mg-160 mg tablet RxNorm: 341672 1 Tablet(s) Oral two times a day 06/08/2019 06/13/2019 Inactive Bactrim DS 800 mg-160 mg tablet RxNorm: 023822 1 Tablet(s) Oral two times a day 06/08/2019 06/07/2019 Inactive ibuprofen 800 mg tablet RxNorm: 274699 1 Tablet(s) Oral Q8H as needed 03/16/2019 06/05/2019 Inactive Cipro 500 mg tablet RxNorm: 547587 1 Tablet(s) Oral two times a day 03/04/2019 03/11/2019 Inactive Cipro 500 mg tablet RxNorm: 604393 1 Tablet(s) Oral two times a day 03/04/2019 03/03/2019 Inactive Macrobid 100 mg capsule RxNorm: 676833 1 Capsule(s) Oral two ti mes a day 02/16/2019 02/15/2019 Inactive Macrobid 100 mg capsule RxNorm: 447252 1 Capsule(s) Oral two ti mes a [...] 11/24/2017 Inactive Pepcid 40 mg tablet RxNorm: 465852 1 Tablet(s) PO QD 10/18/201603/02 Inactive Depo-Provera 150 mg/mL intramuscular suspension RxNorm: 1000 128 Milliliter(s) 1 Milliliter(s) IM 10/10/2016 06/04/2017 Inactive Tamiflu 75 mg capsule RxNorm: 575605 1 Capsule(s) PO BID 08/08/2016 0 08/12/2016 Inactive Levsin 0.125 mg tablet RxNorm: 9184911 1 Tablet(s) PO TID for fl ank pain 05/15/2016 10/17/2016 Inactive Bactrim DS 800 mg-160 mg tablet RxNorm: 850180 1 Tablet(s) PO BID 0 12/23/2015 01/01/2016 Inactive mupirocin 2 % topical ointment RxNorm: 982706 Application TOP TID 0 12/23/2015 12/29/2015 Inactive Depo-Provera 150 mg/mL intramuscular suspension RxNorm: 1000 128 Milliliter(s) 1 Milliliter(s) IM 11/08/2015 10/09/2016 Inactive Xanax 0.25 mg tablet RxNorm: 539076 TAKE ONE-HALF TO ON E TABLET BY MOUTH NEEDED FOR ANXIETY 04/11/2015 05/10/2015 Inactive Generic For:X ANAX 0.25 MG TABLET 04/11/2015 2:54:57 PM Depo-Provera 150 mg/mL intramuscular suspension RxNorm: 1000 128 Milliliter(s) 1 Milliliter(s) IM 02/15/2015 11/07/2015 Inactive azithromycin 250 mg tablet RxNorm: 737013 2 Tablet(s) P O today, then one tablet on days 2 - 5 01/26/2015 12/22/2015 Inactive Medrol (Jhonathan) 4 mg tablets in a dose pack RxNorm: 445375 Tablet(s) P O 01/26/2015 12/22/2015 Inactive Depo-Provera 150 mg/mL intramuscular suspension RxNorm: 1000 128 1 Milliliter(s) IM 09/06/2014 02/15/2015 Inactive Xanax 0.25 mg tablet RxNorm: 203229 1/2 - 1 Tablet(s) PO as nee ded for anxiety 06/16/2014 04/12/2015 Inactive Zoloft 50 mg tablet RxNorm: 093719 1 Tablet(s) PO QD 06/16/201412/21 Inactive Flexeril [...] 2014 Inactive Xanax 0.25 mg tablet RxNorm: 316592 1/2 - 1 Tablet(s) PO as nee ded for anxiety 01/28/2014 06/15/2014 Inactive naproxen 500 mg tablet RxNorm: 692077 1 Tablet(s) PO BID 12/10/2013 0 01/08/2014 Inactive Zoloft 50 mg tablet RxNorm: 169072 1 Tablet(s) PO QD 12/10/201304/08 Inactive Xanax 0.25 mg tablet RxNorm: 539499 1/2 - 1 Tablet(s) PO as nee ded for anxiety 12/10/2013 01/27/2014 Inactive Xanax 0.25 mg tablet RxNorm: 096803 1 Tablet(s) PO Q8H 10/20/2013 Inactive Zoloft 50 mg tablet RxNorm: 372717 1/2 Tablet(s) PO x 6 days then on1 tablet daily 10/20/2013 11/18/2013 Inactive Loestrin Fe 06/01 (28) 1 mg-20 mcg tablet RxNorm: 8062062 1 Table t(s) PO QD 10/20/2013 05/03/2014 Inactive phenazopyridine 100 mg tablet RxNorm: 6504549 1 Tablet(s) PO Q8H 06/26/2013 Inactive Macrobid 100 mg capsule RxNorm: 588484 1 Capsule(s) PO BID 06/25/19 14 07/04/2013 Inactive phenazopyridine 100 mg tablet RxNorm: 8401466 1 Tablet(s) PO Q8H 06/24/2013 Inactive Macrobid 100 mg capsule RxNorm: 922869 1 Capsule(s) PO BID 07/25/1908/02/2010 Inactive Apri 0.15 mg-30 mcg tablet RxNorm: 168276 1 Tablet(s) PO QD As directed. No Start Date 06/23/2013 Inactive omeprazole 40 mg capsule,delayed release RxNorm: 374941 1 Capsule(s) PO QD for stomach No Start Date 06/23/2013 Inactive naproxen 500 mg tablet RxNorm: 438814 1 Tablet(s) PO BID No Start D ate 06/15/2014 Inactive hydrocodone 10 mg-acetaminophen 325 mg tablet RxNorm: 005910 Tablet(s) PO as needed for pain No Start Date 12/22/2015 Inactive Zoloft 50 mg tablet RxNorm: 992270 1 Tablet(s) PO QD No Start Date Inactive hydrocodone 5 mg-acetaminophen 325 mg tablet RxNorm: 347493 1 Tablet(s) PO QID as needed for pain No Start Date 09/14/2013 Inactive Medication Administered No Medication Administered data Immunizations No Immunization data Results Observation Observation Code Item Item Code Result Date S ervice Location LIPASE 45169 LIPASE 14 IU/L 01/28/2014 Unknown COMPLETE BLOOD COUNT [id number] WBC 6.5 10e9/L 01/29/20 14 Unknown COMPLETE BLOOD COUNT [id number] RBC 4.54 10e12/L 2013 Unknown COMPLETE BLOOD COUNT [id number] HGB 12.1 g/dL 4 Unknown COMPLETE BLOOD COUNT [id number] HCT DET 38.0 % 4 Unknown COMPLETE BLOOD COUNT [id number] MCV 83.7 fL 4 Unknown COMPLETE BLOOD COUNT [id number] MCH 26.7 pg 4 Unknown COMPLETE BLOOD COUNT [id number] MCHC 31.8 g/dL 4 Unknown COMPLETE BLOOD COUNT [id number] PLT 218 10e9/L 01/29/20 14 Unknown COMPLETE BLOOD COUNT [id number] MPV 12.8 fL 4 Unknown COMPLETE BLOOD COUNT [id number] RACHNA % 56.5 % 4 Unknown COMPLETE BLOOD COUNT [id number] LY % 32.3 % 4 Unknown COMPLETE BLOOD COUNT 4130016 MON % 8.6 % 4 Unknown COMPLETE BLOOD COUNT [id number] EOS % 2.1 % 4 Unknown COMPLETE BLOOD COUNT [id number] BASO % 0.5 % 4 Unknown COMPLETE BLOOD COUNT [id number] RDW 18.4 % 4 Unknown COMPLETE BLOOD COUNT [id number] ABS RACHNA 3.67 10e9/L 014 Unknown COMPLETE BLOOD COUNT [id number] ABS LYMPH 2.10 10e9/L 014 Unknown COMPLETE BLOOD COUNT [id number] ABS MONO 0.56 10e9/L 014 Unknown COMPLETE BLOOD COUNT [id number] ABS EOS 0.14 10e9/L 014 Unknown COMPLETE BLOOD COUNT [id number] ABS BASO 0.03 10e9/L 014 Unknown COMPLETE BLOOD COUNT [id number] RDW-SD 55.5 fL 4 Unknown COMPREHENSIVE METABOLIC 46680 AST 13 U/L 2013 Unknown COMPREHENSIVE METABOLIC 48287 ALT 7 IU/L 2013 Unknown COMPREHENSIVE METABOLIC 10498 BUN 8 MG/DL 2013 Unknown COMPREHENSIVE METABOLIC 50985 ALBUMIN 4.5 GM/DL 2013 Unknown COMPREHENSIVE METABOLIC 98298 CHLORIDE 106 MMOL/L 01/28 Unknown COMPREHENSIVE METABOLIC 72312 BILI TOT 0.4 MG/DL 2013 Unknown COMPREHENSIVE METABOLIC 99565 ALK PHOS 55 U/L 2013 Unknown COMPREHENSIVE METABOLIC 75923 SODIUM 138 MMOL/L 01/28 Unknown COMPREHENSIVE METABOLIC 48073 CREATININE 0.73 MG/DL 01/11 Unknown COMPREHENSIVE METABOLIC 94064 CALCIUM 9.9 MG/DL 2013 Unknown COMPREHENSIVE METABOLIC 93296 POTASSIUM 3.8 MMOL/L 01/28 Unknown COMPREHENSIVE METABOLIC 25493 PROT TOT 7.4 GM/DL 2013 Unknown COMPREHENSIVE METABOLIC 06923 Glucose 96 MG/DL 2013 Unknown COMPREHENSIVE METABOLIC 18817 BICARB 27 MMOL/L 2013 Unknown COMPREHENSIVE METABOLIC 72854 ANION GAP 5 MEQ/L 2013 Unknown AMYLASE 53964 AMYLASE 42 IU/L 01/28/2014 Unknown GFR CALC 1597741 GFR AA >60 ML/MIN 01/28/2014 Unknown GFR CALC [id number] GFR NON-AA >60 ML/MIN 01/28/2014 Unknown Procedures Procedure Codes Date URINE TEST CPT-4: 32703 11/16/2019 URINE CULTURE/ COLONY COUNT CPT-4: 77748 06/15/2019 URINALYSIS NONAUTO W/O SCOPE CPT-4: 95354 06/05/2019 CEFTRIAXONE SODIUM INJECTION CPT-4: J0696 06/05/2019 THER/PROPH/DIAG INJ SC/IM CPT-4: 44187 06/05/2019 URINE CULTURE/ COLONY COUNT CPT-4: 65555 06/05/2019 URINE CULTURE/ COLONY COUNT CPT-4: 87736 03/02/2019 THER/PROPH/DIAG INJ SC/IM CPT-4: 78307 02/16/2019 URINE CULTURE/ COLONY COUNT CPT-4: 72669 02/16/2019 URINALYSIS NONAUTO W/O SCOPE CPT-4: 85690 02/16/2019 URINE TEST CPT-4: 16802 02/16/2019 THER/PROPH/DIAG INJ SC/IM CPT-4: 15440 05/21/2018 THER/PROPH/DIAG INJ SC/IM CPT-4: 76967 11/26/2017 THER/PROPH/DIAG INJ SC/IM CPT-4: 08805 08/27/2017 THER/PROPH/DIAG INJ SC/IM CPT-4: 94113 06/06/2017 URINALYSIS NONAUTO W/O SCOPE CPT-4: 24709 06/06/2017 GC/CHLAMYDIA DNA ([facility]) CPT-4: 40864|85424 8 URINE CULTURE/ COLONY COUNT CPT-4: 55565 06/06/2017 THER/PROPH/DIAG INJ SC/IM CPT-4: 90743 01/04/2017 SPECIMEN HANDLING OFFICE-LAB CPT-4: 99400 10/18/2016 THER/PROPH/DIAG INJ SC/IM CPT-4: 32868 10/12/2016 INFLUENZA ASSAY W/OPTIC CPT-4: 32276 08/08/2016 THER/PROPH/DIAG INJ SC/IM CPT-4: 87286 07/25/2016 THER/PROPH/DIAG INJ SC/IM CPT-4: 35897 05/03/2016 THER/PROPH/DIAG INJ SC/IM CPT-4: 47661 02/20/2016 URINE TEST CPT-4: 67718 02/20/2016 AEROBIC WOUND CULTURE & STN CPT-4: 69477 12/23/2015 THER/PROPH/DIAG INJ SC/IM CPT-4: 12747 11/07/2015 URINE TEST CPT-4: 70353 11/07/2015 THER/PROPH/DIAG INJ SC/IM CPT-4: 19742 08/01/2015 THER/PROPH/DIAG INJ SC/IM CPT-4: 22210 05/11/2015 THER/PROPH/DIAG INJ SC/IM CPT-4: 62766 02/16/2015 THER/PROPH/DIAG INJ SC/IM CPT-4: 11903 11/29/2014 THER/PROPH/DIAG INJ SC/IM CPT-4: 86662 09/09/2014 URINE TEST CPT-4: 72685 06/16/2014 THER/PROPH/DIAG INJ SC/IM CPT-4: 60885 06/16/2014 ROUTINE VENIPUNCTURE CPT-4: 93699 10/07/2013 COMPLETE CBC W/AUTO DIFF WBC CPT-4: 54928 10/07/2013 CHORIONIC GONADOTROPIN TEST CPT-4: 84565 10/07/2013 URINE TEST CPT-4: 78451 09/15/2013 URINALYSIS NONAUTO W/O SCOPE CPT-4: 39317 06/24/2013 URINE CULTURE/ COLONY COUNT CPT-4: 54746 06/24/2013 URINE TEST CPT-4: 26070 09/08/2010 URINALYSIS NONAUTO W/O SCOPE CPT-4: 29509 07/24/2010 URINE CULTURE/ COLONY COUNT CPT-4: 21033 07/24/2010 DESTRUCT PREMALG LESION (Cryosurgery) CPT-4: 06330 DESTRUCT PREMALG LES 2-14 CPT-4: 30981 03/08/2010 Vital Signs Date Vital 11/16/2019 Blood Pressure 1: 119/75 Code: 8480-6 BMI: 24.4 Code: 97095-3 Heart Rate 1: 112 bpm Height: 5'9" Respiratory Rate: 15 bpm SpO2: 98% Tempera ture: 36.8 (C) / 98.2 (F) Weight: 165 lbs 07/07/2019 Blood Pressure 1: 126/82 Code: 8480-6 Heart Rate 1: 100 bpm SpO2: 99% Temperature: 36.8 (C) / 98.2 (F) 06/05/2019 Blood Pressure 1: 131/82 Code: 8480-6 BMI: 26.3 Code: 07562-3 Heart Rate 1: 109 bpm Height: 5'9" Respiratory Rate: 16 bpm SpO2: 99% Tempera ture: 36.7 (C) / 98.1 (F) Weight: 178 lbs 03/16/2019 Blood Pressure 1: 132/86 Code: 8480-6 Heart Rate 1: 73 bpm SpO2: 99% Temperature: 36.6 (C) / 97.9 (F) Weight: 158 lbs 03/03/2018 Blood Pressure 1: 120/88 Code: 8480-6 BMI: 23.9 Code: 24488-3 Heart Rate 1: 81 bpm Height: 5'9" Respiratory Rate: 18 bpm SpO2: 99% Tempera ture: 36.1 (C) / 97.0 (F) Weight: 162 lbs 10/18/2016 Blood Pressure 1: 108/78 Code: 8480-6 BMI: 22.6 Code: 21784-2 Heart Rate 1: 100 bpm Height: 5'9" Respiratory Rate: 20 bpm SpO2: 98% Tempera ture: 37.1 (C) / 98.8 (F) Weight: 153 lbs 08/08/2016 Blood Pressure 1: 114/78 Code: 8480-6 Heart Rate 1: 102 bpm Respiratory Rate: 20 bpm SpO2: 98% Temperature: 36.4 (C) / 97.6 (F) We ight: 152 lbs 05/15/2016 Blood Pressure 1: 124/80 Code: 8480-6 BMI: 23.2 Code: 71160-2 Heart Rate 1: 100 bpm Height: 5'9" Respiratory Rate: 20 bpm Temperature: 37 .0 (C) / 98.6 (F) Weight: 157 lbs 12/23/2015 Blood Pressure 1: 124/78 Code: 8480-6 BMI: 23.0 Code: 90605-0 Heart Rate 1: 92 bpm Height: 5'9" Respiratory Rate: 20 bpm SpO2: 97% Tempera ture: 36.9 (C) / 98.5 (F) Weight: 156 lbs 01/26/2015 Blood Pressure 1: 118/78 Code: 8480-6 BMI: 21.3 Code: 30971-1 Heart Rate 1: 100 bpm Height: 5'9" Respiratory Rate: 20 bpm SpO2: 97% Tempera ture: 36.6 (C) / 97.8 (F) Weight: 144 lbs 06/16/2014 Blood Pressure 1: 118/78 Code: 8480-6 BMI: 23.5 Code: 00028-8 Heart Rate 1: 78 bpm Height: 5'9" Respiratory Rate: 18 bpm Temperature: 36 .1 (C) / 97.0 (F) Weight: 159 lbs 01/28/2014 Blood Pressure 1: 124/78 Code: 8480-6 BMI: 23.2 Code: 57792-4 Heart Rate 1: 88 bpm Height: 5'9" Respiratory Rate: 22 bpm Temperature: 36 .1 (C) / 97.0 (F) Weight: 157 lbs 12/10/2013 Blood Pressure 1: 124/70 Code: 8480-6 BMI: 23.0 Code: 40646-2 Heart Rate 1: 82 bpm Height: 5'9" Respiratory Rate: 20 bpm Temperature: 36 .2 (C) / 97.2 (F) Weight: 156 lbs 10/20/2013 Blood Pressure 1: 118/82 Code: 8480-6 Heart Rate 1: 84 bpm Respiratory Rate: 22 bpm Temperature: 36.5 (C) / 97.7 (F) Weight: 150 lbs 10/07/2013 Blood Pressure 1: 120/80 Code: 8480-6 BMI: 22.2 Code: 82138-8 Heart Rate 1: 68 bpm Height: 5'9" Respiratory Rate: 22 bpm Temperature: 36 .2 (C) / 97.2 (F) Weight: 150 lbs 09/15/2013 Blood Pressure 1: 118/68 Code: 8480-6 BMI: 22.0 Code: 25943-0 Heart Rate 1: 78 bpm Height: 5'9" Respiratory Rate: 20 bpm Temperature: 36 .1 (C) / 97.0 (F) Weight: 149 lbs 06/24/2013 Blood Pressure 1: 112/74 Code: 8480-6 Heart Rate 1: 74 bpm Respiratory Rate: 20 bpm Temperature: 36.6 (C) / 97.9 (F) Weight: 150 lbs 03/05/2013 Blood Pressure 1: 126/88 Code: 8480-6 BMI: 23.5 Code: 83072-1 Heart Rate 1: 80 bpm Height: 5'9" Respiratory Rate: 20 bpm Temperature: 36 .6 (C) / 97.9 (F) Weight: 159 lbs 02/09/2013 Blood Pressure 1: 110/68 Code: 8480-6 BMI: 21.9 Code: 52204-4 Heart Rate 1: 74 bpm Height: 5'9" Respiratory Rate: 22 bpm Temperature: 36 .8 (C) / 98.2 (F) Weight: 148 lbs 09/08/2010 Blood Pressure 1: 124/90 Code: 8480-6 BMI: 21.4 Code: 42092-2 Height: 5'10" Temperature: 36.4 (C) / 97.6 [...] Encounters Encounter Performer Location Codes Date () OFFICE/OUTPATIENT VISIT EST Diagnosis: Vaginitis[ICD10: N76.0] Diagnosis: Encounter for gynecological examination (general) (routine) with abnormal findings[ICD10: Z01.411] Diagnosis: Left breast mass[ICD10: N63.20] Diagnosis: Dense breast tissue[ICD10: R92.2] Diagnosis: Encounter for general adult medical examination without abnormal findings[ICD10: Z00.00] Diagnosis: Bilateral lower extremity edema[ICD10: R60.0] Diagnosis: control counseling[ICD10: Z30.09] Keyanna Gamamagaly [employer]Maria Teresa [employer] CPT-4: 37917 11/16/2019 ([id number]) OFFICE/OUTPATIENT VISIT EST Diagnosis: Urethritis[ICD10: N34.2] Diagnosis: History of renal stone[ICD10: Z87.442] Josefa BRIAN [facility] CPT-4: 40171 07/07/2019 ([id number]) NURSE/OUTPATIENT VISIT EST Diagnosis: Urinary tract infection[ICD10: N39.0] Josefa DE SOUZA [employer]Maria Teresa [employer] CPT-4: 72019 06/15/2019 ([id number]) OFFICE/OUTPATIENT VISIT EST Diagnosis: Dysuria[ICD10: R30.0] Diagnosis: Pelvic pain in female[ICD10: R10.2] Keyanna [facility] CPT-4: 92802 06/05/2019 ([id number]) OFFICE/OUTPATIENT VISIT EST Diagnosis: Left wrist pain[ICD10: M25.532] Diagnosis: Swelling of left upper extremity[ICD10: M79.89] Keyanna [facility] CPT-4: 30422 03/16/2019 ([id number]) NURSE/OUTPATIENT VISIT EST Diagnosis: Urinary tract infection[ICD10: N39.0] Josefa [facility] CPT-4: 69840 03/02/2019 ([id number]) NURSE/OUTPATIENT VISIT EST Diagnosis: Irregular menstruation, unspecified[ICD10: N92.6] Diagnosis: Urinary tract infection[ICD10: N39.0] Josefa [facility] CPT-4: 85592 02/16/2019 ([id number]) NURSE/OUTPATIENT VISIT EST Diagnosis: Irregular menstruation, unspecified[ICD10: N92.6] Josefa [facility] CPT-4: 99267 05/21/2018 ([id number]) OFFICE/OUTPATIENT VISIT EST Diagnosis: Irregular menstruation, unspecified[ICD10: N92.6] Diagnosis: Diseases of lips[ICD10: K13.0] Diagnosis: 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] Keyanna [facility] CPT-4: 01812 03/03/2018 ([id number]) NURSE/OUTPATIENT VISIT EST Diagnosis: Irregular menstruation, unspecified[ICD10: N92.6] Josefa [facility] CPT-4: 08823 11/26/2017 ([id number]) OFFICE/OUTPATIENT VISIT EST Diagnosis: Irregular menstruation, unspecified[ICD10: N92.6] Josefa [facility] CPT-4: 24066 08/27/2017 ([id number]) OFFICE/OUTPATIENT VISIT EST Diagnosis: Dysuria[ICD10: R30.0] Diagnosis: Irregular menstruation, unspecified[ICD10: N92.6] [facility] CPT-4: 23211 06/06/2017 ([id number]) OFFICE/OUTPATIENT VISIT EST Diagnosis: Irregular menstruation, unspecified[ICD10: N92.6] Josefa [facility] CPT-4: 29475 01/04/2017 ([id number]) PREV VISIT EST AGE 18-39 Diagnosis: Encounter for general adult medical examination without abnormal findings[ICD10: Z00.00] Diagnosis: Encounter for gynecological examination (general) (routine) without abnormal findings[ICD10: Z01.419] Diagnosis: Gastro-esophageal reflux disease without esophagitis[ICD10: K21.9] Diagnosis: Dysphagia, pharyngeal phase[ICD10: R13.13] [facility]fa [facility] CPT-4: 04208 10/18/2016 ([id number]) OFFICE/OUTPATIENT VISIT EST Diagnosis: Irregular menstruation, unspecified[ICD10: N92.6] [facility]fa [facility] CPT-4: 48950 10/12/2016 ([id number]) OFFICE/OUTPATIENT VISIT EST Diagnosis: Fever, unspecified[ICD10: R50.9] Diagnosis: Influenza due to identified novel influenza A virus with other respiratory manifestations[ICD10: J09.X2] Catrina Bran [facility] CPT-4: 40886 08/08/2016 ([id number]) OFFICE/OUTPATIENT VISIT EST Diagnosis: Irregular menstruation, unspecified[ICD10: N92.6] Josefa [facility] CPT-4: 56640 07/25/2016 ([id number]) OFFICE/OUTPATIENT VISIT EST Diagnosis: Right upper quadrant pain[ICD10: R10.11] Diagnosis: Unspecified abdominal pain[ICD10: R10.9] Josefa [facility] CPT-4: 03459 05/15/2016 ([id number]) OFFICE/OUTPATIENT VISIT EST Diagnosis: Irregular menstruation, unspecified[ICD10: N92.6] Josefa [facility] CPT-4: 89287 05/03/2016 ([id number]) OFFICE/OUTPATIENT VISIT EST Diagnosis: Irregular menstruation, unspecified[ICD10: N92.6] Josefa [facility] CPT-4: 65476 02/20/2016 OFFICE/OUTPATIENT VISIT EST Diagnosis: Cutaneous abscess of buttock[ICD10: L02.31] Kitty Caldera [facility]FA [facility] CPT-4: 56785 12/23/2015 ([id number]) OFFICE/OUTPATIENT VISIT EST Diagnosis: Irregular menstruation, unspecified[ICD10: N92.6] Josefa [facility] CPT-4: 94618 11/07/2015 ([id number]) OFFICE/OUTPATIENT VISIT EST Diagnosis: Irregular menstruation, unspecified[ICD10: N92.6] Josefa [facility] CPT-4: 41176 08/01/2015 ([id number]) OFFICE/OUTPATIENT VISIT EST Diagnosis: Irregular menstruation, unspecified[ICD10: N92.6] Josefa [facility] CPT-4: 58335 05/11/2015 ([id number]) OFFICE/OUTPATIENT VISIT EST Diagnosis: Irregular menstruation, unspecified[ICD10: N92.6] Josefa [facility] CPT-4: 31703 02/16/2015 OFFICE/OUTPATIENT VISIT EST Diagnosis: SINUSITIS, ACUTE[ICD9: 461.9] Malgorzata VanErinelaere [facility]FA [facility] CPT-4: 85780 01/26/2015 ([id number]) OFFICE/OUTPATIENT VISIT EST Diagnosis: IRREGULAR MENSTRUATION[ICD9: 626.4] Josefa [facility] CPT-4: 86199 11/29/2014 ([id number]) OFFICE/OUTPATIENT VISIT EST Diagnosis: IRREGULAR MENSTRUATION[ICD9: 626.4] Josefa Thadgaetanoflaco ALIE KATTY [facility] CPT-4: 28389 09/09/2014 ([id number]) OFFICE/OUTPATIENT VISIT EST Diagnosis: IRREGULAR MENSTRUATION[ICD9: 626.4] Diagnosis: General counseling and advice on contraceptive management[ICD9: V25.09] Diagnosis: Anxiety and depression[ICD9: 300.4] Malgorzata TALAMANTES [facility] CPT-4: 48277 06/16/2014 OFFICE/OUTPATIENT VISIT EST Diagnosis: Right upper quadrant pain[ICD9: 789.01] Malgorzata TALAMANTES [facility] CPT-4: 08345 01/28/2014 OFFICE/OUTPATIENT VISIT EST Diagnosis: Right upper quadrant pain[ICD9: 789.01] Malgorzata TALAMANTES [facility] CPT-4: 85415 12/10/2013 OFFICE/OUTPATIENT VISIT EST Diagnosis: Anxiety and depression[ICD9: 300.4] Malgorzata VillanuevaErinjuanjo HillMaria Teresa [facility] CPT-[facility]: 80111 10/20/2013 OFFICE/OUTPATIENT VISIT EST Diagnosis: Menorrhagia[ICD9: 626.2] Malgorzata VillanuevaErinjuanjo PINTOLINE Waylon RIVERA [facility] CPT-4: 55187 10/07/2013 OFFICE/OUTPATIENT VISIT EST Diagnosis: IRREGULAR MENSTRUATION[ICD9: 626.4] Malgorzata ALANIZ SMaria Teresa DUC [facility] CPT-4: 95829 09/15/2013 OFFICE/OUTPATIENT VISIT EST Diagnosis: HEMATURIA NOS[ICD9: 599.70] Diagnosis: Abdominal discomfort in right upper quadrant[ICD9: 789.01] Malgorzata PINTOLINE SergioMaria Teresa DCU [facility] CPT-4: 40092 06/24/2013 ([id number]) OFFICE/OUTPATIENT VISIT EST Diagnosis: ABDOMINAL PAIN[ICD9: 789.00] Diagnosis: GERD[ICD9: 530.81] Josefa Thadgaetanoflaco PINTOJOSEFA SergioMaria Teresa DUC [facility] CPT-4: 01307 03/05/2013 OFFICE/OUTPATIENT VISIT EST Diagnosis: General counseling and advice on contraceptive management[ICD9: V25.09] Diagnosis: IRREGULAR MENSTRUATION[ICD9: 626.4] Malgorzata VillanuevaErinjuanjo ALANIZ Waylon TALAMANTES DO [facility] CPT-4: 16768 02/09/2013 ([id number]) OFFICE/OUTPATIENT VISIT GISEL TALAMANTES DO [facility] CPT-4: 89200 09/08/2010 ([id number]) OFFICE/OUTPATIENT VISIT GISEL TALAMANTES DO [facility] CPT-4: 05458 07/24/2010 Plan of Care Planned Activity Notes Codes Status Date Visit Diagnosis Plan: Bilateral lower extremity edema [...] labs to be completed this week at [facility]. order written and given to patient. pap and breast exam completed. see other plans. ICD-9 : V72.31 ICD-10 : Z01.411 11/16/2019 Visit Diagnosis Plan: History of renal stone Discussio n: Flomax Push water If not improving within 48hrs or if worsening then will need CT scan to assess for stone ICD-9 : V13.01 ICD-10 : Z87.442 07/07/2019 Visit Diagnosis Plan: Urethritis Discussion: Diflucan and topical nystatin ICD-9 : 597.80 ICD-10 : N34.2 07/07/2019 Appointment: Josefa Talamantes WPtel[facility] [phone] [id number] AC[facility] 07/07/2019 Patient Education: nystatin- [employer] Coupon [id number] [email or web address] Completed 07/07/2019 Appointment: Josefa Talamantestel: [address] [place], [place] [phone] UA 06/15/2019 Visit Diagnosis Plan: Dysuria Discussion: due to recur rent pain and worsening symptoms, rocephin 1 gm given in office. will send urine off for culture and call on saturday if any changes needed. instructed to push fluids through the w eekend and go to urgent care with any worsening. ICD-9 : 788.1 ICD-10 : R30.0 06/05/2019 Appointment: Keyanna Mejía [address] [place] [address] FOLLOW UP 06/05/2019 Visit Diagnosis Plan: Left [...] : 719.43 ICD-10 : M25.532 03/16/2019 Appointment: eKyanna Mejía [address] [place] [address] Hospital Follow Up 03/16/2019 Appointment: Josefa Talamantes WPtel: [address] [place], [place] [phone] [place] UA 03/02/2019 Appointment: Josefa Talamantes WPtel: [address] [place], [place] [phone] [place] INJECTION 02/16/2019 Appointment: Josefa Talamantes WPtel: [address] [place], [place] [phone] [place] INJECTION 05/21/2018 Visit Diagnosis Plan: Nontoxic [...] performed in office and negative. 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 and bring back to [...] ICD-10 : K13.0 03/03/2018 Appointment: Keyanna Mejía [address] [place] [address] US ACUTE ILLNESS 03/03/2018 Patient Education: Patient Medication Summary Completed 03/03/2018 Care Plan: US EXAM OF HEAD AND NECK thyroid LOIN C : 99620-2 Pending 03/03/2018 Appointment: Josefa Talamantes WPtel: [address] [place] [address] US CANCELED 02/27/2018 Appointment: Josefa Talamantes WPtel: [address] [place], [place] [phone] [place] INJECTION 11/26/2017 Patient Education: Patient Medication Summary Completed 11/26/2017 Appointment: Josefa Talamantes WPtel: [address] [place], [place] [phone] [place] INJECTION 08/27/2017 Patient Education: Patient Medication Summary Completed 08/27/2017 Appointment: Josefa Talamantes WPtel: [address] [place], [place] [phone] [place] INJECTION 06/06/2017 Patient Education: Patient Medication Summary Completed 06/06/2017 Appointment: Josefa Talamantes WPtel: [address] [place], [place] [phone] [place] INJECTION 01/04/2017 Patient Education: Patient Medication Summary Completed 01/04/2017 Appointment: Josefa Talamantes WPtel: [address] [place], [place] [id number] [place] 11/19 lm `sl 11/21 lm `sl NO SHOW 11/22/19 17 Patient Education: Patient Medication Summary Completed 10/22/2016 Care Plan: US EXAM OF HEAD AND NECK Thyroid Ultrasound LOIN C : 51958-1 Pending 10/22/2016 Visit Diagnosis Plan: Gastro-esophageal reflux [...] : R13.13 10/18/2016 Appointment: Josefa Talamantes WPtel: [address] [place], [place] [phone] 10/17 lm `sl Annual Well Visit 10/18/2016 Patient Education: Patient Medication Summary Completed 10/18/2016 Appointment: Josefa Talamantes WPtel: [address] [place], [place] [phone] [place] INJECTION 10/12/2016 Patient Education: Patient Medication Summary Completed 10/12/2016 Visit Diagnosis Plan: Influenza due to i dentified novel influenza A virus with other respiratory manifestations Discussion: Flu A positive Rx as above Supportive care otherwise Contagious precautions discussed Notify kids' provider of exposure for their instructions ICD-9 : 488.02 ICD-10 : J09.X2 08/08/2016 Appointment: Catrina Bran [address] [place], [place] [id number] ACUTE ILLNESS 08/08/2016 Patient Education: Patient Medication Summary Completed 08/08/2016 Appointment: [facility]antes [facility]el[facility] [phone] [id number] [place] [facility]JE[facility] 07/25/2016 Patient Education: Patient Medication Summary Completed 07/25/2016 Visit Plan: Finish abx and then recultur e 48hrs after completion Add levsin and zorvolex 05/15/2016 Appointment: Josefa Talamantes WPtel: [address] [place], [place] [id number] [place] 1/2 lm `sl 05/15 confirmed~ Hospital Follow Up 0 05/15/2016 Patient Education: Patient Medication Summary Completed 05/15/2016 [facility]ment: [facility] [id number] [place] 05/09 admitted into the hospital last night~ ACUTE ILLNESS 05/09/2016 Appointment: Josefa Talamantes WPtel: [address] [place], [place] [id number] [place] INJECTION 05/03/2016 Patient Education: Patient Medication Summary Completed 05/03/2016 Appointment: Josefa Talamantes WPtel: [address] [place], [place] [id number] [place] INJECTION 02/20/2016 Patient Education: Patient Medication Summary Completed 02/20/2016 Visit Plan: ERx for Bactrim and Bactroba n Called to [facility]am 50mg 1 po q 4-6 hours prn pain #20 Warm moist heat to area qid Watch for s/s of worsening, go to over weekend Discussed SE of meds including s/s of SJS which would require an ER visit C&S obtained 12/23/2015 Appointment: Kitty Caldera WPtel: [address] [place], [place] [id number] [place] ACUTE ILLNESS 12/23/2015 Patient Education: Patient Medication Summary Completed 12/23/2015 Appointment: [facility]antes [facility]el[facility] [address] [id number] [place] [facility]JE[facility] 11/07/2015 Patient Education: Patient Medication Summary Completed 11/07/2015 Appointment: Josefa Talamantes WPtel: [address] [place], [place] [phone] [place] INJECTION 08/01/2015 Patient Education: Patient Medication Summary Completed 08/01/2015 Appointment: Josefa Talamantes WPtel: [address] [place], [place] [phone] [place] INJECTION 05/11/2015 Patient Education: Patient Medication Summary Completed 05/11/2015 Appointment: Malgorzata Islas WPtel: [address] [place], [place] [phone] [place] PAP 04/05/2015 Appointment: Josefa Talamantes WPtel: [address] [place], [place] [phone] [place] INJECTION 02/16/2015 Patient Education: Patient Medication Summary Completed 02/16/2015 Visit Plan: Daily nasal saline rinses Fl onase nasal spray and daily Zyrtec Medrol dose pack Z-jhonathan as directed 01/26/2015 Appointment: Malgorzata Islas WPtel: [address] [place], [place] [phone] [place] ACUTE ILLNESS 01/26/2015 Patient Education: Patient Medication Summary Completed 01/26/2015 Appointment: Josefa Talamantes WPtel: [address] [place], [place] [phone] [place] INJECTION 11/29/2014 Patient Education: Patient Medication Summary Completed 11/29/2014 Appointment: Josefa Talamantes WPtel: [address] [place], [place] [phone] [place] INJECTION 09/09/2014 Patient Education: Patient Medication Summary Completed 09/09/2014 Appointment: Malgorzata Islas WPtel: [address] [place], [place] [phone] [place] FOLLOW UP 06/16/2014 Patient Education: Patient Medication Summary Completed 06/16/2014 Appointment: Malgorzata Islas WPtel: [address] [place], [place] [phone] [place] 06/02/14 appointment scheduled 06/03/14 no showed PAP 06/03/2014 Appointment: Malgorzata Islas WPtel: [address] [place] [address] [place] FOLLOW UP 01/28/2014 Patient Education: Patient Medication Summary Completed 01/28/2014 Care Plan: COMPREHEN METABOLIC [place] : 78703-4 Ordered 01/28/2014 Care Plan: AMYLASE Pending 4 Appointment: Malgorzata Islas WPtel: [address] [place] [address] FOLLOW UP 12/10/2013 Patient Education: Patient Medication Summary Completed 12/10/2013 Appointment: Malgorzata Islas WPtel: [address] [place] [address] 11/11 vm 11/12 No Show FOLLOW UP 11/12/2013 Appointment: Malgorzata Islas WPtel: [address] [place] [address] FOLLOW UP 10/20/2013 Patient Education: Patient Medication Summary Completed 10/20/2013 Visit Plan: Quantitative Hcg and CBC tod ay. Transvaginal/Transabdominal sonogram stat Discussed with [facility] and [facility] 343 so will recheck in 1week as long as not worsening 10/07/2013 Appointment: Malgorzata Islas WPtel: [address] [place], [place] [id number] AC[facility] 10/07/2013 Patient Education: Patient Medication Summary Completed 10/07/2013 Appointment: Malgorzata Islas WPtel: [address] [place], [place] [phone] ACUTE ILLNESS 09/15/2013 Patient Education: Patient Medication Summary Completed 09/15/2013 Appointment: Malgorzata Islas WPtel: [address] [place], [place] [phone] ACUTE ILLNESS 06/24/2013 Patient Education: Patient Medication Summary Completed 06/24/2013 Appointment: Malgorzata Islas WPtel: [address] [place] [address] [place] appt was scheduled today then patient no showed the visit ACUTE ILLNESS 05/21/2013 Visit Plan: Check CMP, CBC, UA CT scan o f abdomen Omeprazole 03/05/2013 Appointment: Josefa Talamantes WPtel: [address] [place] [address] ACUTE ILLNESS 03/05/2013 Appointment: Josefa Talamantes WPtel: [address] [place] [address] 03/02 canceled, wrong patient FOLLOW UP Patient Education: Patient Medication Summary Completed 03/05/2013 Appointment: Malgorzata Islas WPtel: [address] [place] [address] ACUTE ILLNESS 02/09/2013 Patient Education: Patient Medication Summary Completed 02/09/2013 Appointment: Justine Ortega WPtel: [address] [place] [address] ACUTE ILLNESS 09/08/2010 Patient Education: Patient Medication Summary Completed 09/08/2010 Appointment: Justine Ortega WPtel: [address] [place] [address] [place] PAP 08/08/2010 Appointment: Justine Ortega WPtel: [address] [place] [address] ACUTE ILLNESS 07/24/2010 Patient Education: Patient Medication Summary Completed 07/24/2010 Visit Plan: All warts shaved with 11-rekha de scalpel and then cryotherapy x3 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 [id number] [place] Referral Initiated Referral: Referral Initiated Instructions [...] CBC today. Transvaginal/Transabdominal sonogram stat Discussed with [facility] and [facility] 343 so will recheck in [...]
--- OUTSIDE RECORDS SUMMARY | 2019-12-11 22:01 | XMS REPORT | CCD ---
Author Author Brenda Talamantes D.O. Organization [facility] Address [address] [place] [address] Phone Care Team Providers Care Apple Thinner Name Role Phone Josefa Talamantes D.O., PP Unavailable CCM Unavailable Summary Purpose Interface Exchange Insurance Providers Payer name Policy type / Coverage type Covered libertarian ID Effective Begin Date Effective End Date [facility] Commercial Insurance [id number] Unknown Family History Family History data not found Social History Social History Element Codes Description Effective Dates Tobacco history SNOMED CT: 203390156 Unknown if ever smoked 01/12 Allergies, Adverse [...] *Denies any medical problems Unknown 03/08/2010 Act liila PLANTAR WART ICD-9: 078.12 03/08/2010 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 03/08/2010 Active Medications Medication Codes Instructions Start Date Stop Date Status Fill Instructions Depo-Provera 150 mg/mL intramuscular suspension RxNorm: 1000 128 1 Application Intramuscular 11/16/2019 No Stop Date Active Diflucan 100 mg tablet RxNorm: 359117 1 Tablet(s) Oral QD 07/07/2019 07/14/2019 Inactive Flomax 0.4 mg capsule RxNorm: 821290 1 Capsule(s) Oral QPM for kidney stone 07/07/2019 08/06/2019 Inactive nystatin 100,000 unit/gram topical cream RxNorm: 242485 Application Topical two times a day to periurethral area 07/07/2019 11/16/2019 Inactive Bactrim DS 800 mg-160 mg tablet RxNorm: 368731 1 Tablet(s) Oral two times a day 06/08/2019 06/13/2019 Inactive Bactrim DS 800 mg-160 mg tablet RxNorm: 500792 1 Tablet(s) Oral two times a day 06/08/2019 06/07/2019 Inactive ibuprofen 800 mg tablet RxNorm: 374090 1 Tablet(s) Oral Q8H as needed 03/16/2019 06/05/2019 Inactive Cipro 500 mg tablet RxNorm: 245333 1 Tablet(s) Oral two times a day 03/04/2019 03/11/2019 Inactive Cipro 500 mg tablet RxNorm: 356136 1 Tablet(s) Oral two times a day 03/04/2019 03/03/2019 Inactive Macrobid 100 mg capsule RxNorm: 335161 1 Capsule(s) Oral two ti mes a day 02/16/2019 02/15/2019 Inactive Macrobid 100 mg capsule RxNorm: 977246 1 Capsule(s) Oral two ti mes a [...] 11/24/2017 Inactive Pepcid 40 mg tablet RxNorm: 368210 1 Tablet(s) PO QD 10/18/201603/02 Inactive Depo-Provera 150 mg/mL intramuscular suspension RxNorm: 1000 128 Milliliter(s) 1 Milliliter(s) IM 10/10/2016 06/04/2017 Inactive Tamiflu 75 mg capsule RxNorm: 159269 1 Capsule(s) PO BID 08/08/2016 0 08/12/2016 Inactive Levsin 0.125 mg tablet RxNorm: 2839825 1 Tablet(s) PO TID for fl ank pain 05/15/2016 10/17/2016 Inactive Bactrim DS 800 mg-160 mg tablet RxNorm: 776222 1 Tablet(s) PO BID 0 12/23/2015 01/01/2016 Inactive mupirocin 2 % topical ointment RxNorm: 486919 Application TOP TID 0 12/23/2015 12/29/2015 Inactive Depo-Provera 150 mg/mL intramuscular suspension RxNorm: 1000 128 Milliliter(s) 1 Milliliter(s) IM 11/08/2015 10/09/2016 Inactive Xanax 0.25 mg tablet RxNorm: 844699 TAKE ONE-HALF TO ON E TABLET BY MOUTH NEEDED FOR ANXIETY 04/11/2015 05/10/2015 Inactive Generic For:X ANAX 0.25 MG TABLET 04/11/2015 2:54:57 PM Depo-Provera 150 mg/mL intramuscular suspension RxNorm: 1000 128 Milliliter(s) 1 Milliliter(s) IM 02/15/2015 11/07/2015 Inactive azithromycin 250 mg tablet RxNorm: 406688 2 Tablet(s) P O today, then one tablet on days 2 - 5 01/26/2015 12/22/2015 Inactive Medrol (Jhonathan) 4 mg tablets in a dose pack RxNorm: 282488 Tablet(s) P O 01/26/2015 12/22/2015 Inactive Depo-Provera 150 mg/mL intramuscular suspension RxNorm: 1000 128 1 Milliliter(s) IM 09/06/2014 02/15/2015 Inactive Xanax 0.25 mg tablet RxNorm: 147186 1/2 - 1 Tablet(s) PO as nee ded for anxiety 06/16/2014 04/12/2015 Inactive Zoloft 50 mg tablet RxNorm: 971219 1 Tablet(s) PO QD 06/16/201412/21 Inactive Flexeril [...] 2014 Inactive Xanax 0.25 mg tablet RxNorm: 662034 1/2 - 1 Tablet(s) PO as nee ded for anxiety 01/28/2014 06/15/2014 Inactive naproxen 500 mg tablet RxNorm: 383814 1 Tablet(s) PO BID 12/10/2013 0 01/08/2014 Inactive Zoloft 50 mg tablet RxNorm: 940334 1 Tablet(s) PO QD 12/10/201304/08 Inactive Xanax 0.25 mg tablet RxNorm: 287536 1/2 - 1 Tablet(s) PO as nee ded for anxiety 12/10/2013 01/27/2014 Inactive Xanax 0.25 mg tablet RxNorm: 555352 1 Tablet(s) PO Q8H 10/20/2013 Inactive Zoloft 50 mg tablet RxNorm: 918138 1/2 Tablet(s) PO x 6 days then on1 tablet daily 10/20/2013 11/18/2013 Inactive Loestrin Fe 06/01 (28) 1 mg-20 mcg tablet RxNorm: 6163391 1 Table t(s) PO QD 10/20/2013 05/03/2014 Inactive phenazopyridine 100 mg tablet RxNorm: 1185912 1 Tablet(s) PO Q8H 06/26/2013 Inactive Macrobid 100 mg capsule RxNorm: 001645 1 Capsule(s) PO BID 06/25/19 14 07/04/2013 Inactive phenazopyridine 100 mg tablet RxNorm: 9087056 1 Tablet(s) PO Q8H 06/24/2013 Inactive Macrobid 100 mg capsule RxNorm: 472625 1 Capsule(s) PO BID 07/25/1908/02/2010 Inactive Apri 0.15 mg-30 mcg tablet RxNorm: 407413 1 Tablet(s) PO QD As directed. No Start Date 06/23/2013 Inactive omeprazole 40 mg capsule,delayed release RxNorm: 528387 1 Capsule(s) PO QD for stomach No Start Date 06/23/2013 Inactive naproxen 500 mg tablet RxNorm: 226632 1 Tablet(s) PO BID No Start D ate 06/15/2014 Inactive hydrocodone 10 mg-acetaminophen 325 mg tablet RxNorm: 577445 Tablet(s) PO as needed for pain No Start Date 12/22/2015 Inactive Zoloft 50 mg tablet RxNorm: 453341 1 Tablet(s) PO QD No Start Date Inactive hydrocodone 5 mg-acetaminophen 325 mg tablet RxNorm: 374107 1 Tablet(s) PO QID as needed for pain No Start Date 09/14/2013 Inactive Medication Administered No Medication Administered data Immunizations No Immunization data Results Observation Observation Code Item Item Code Result Date S ervice Location LIPASE 13718 LIPASE 14 IU/L 01/28/2014 Unknown COMPLETE BLOOD COUNT [id number] WBC 6.5 10e9/L 01/29/20 14 Unknown COMPLETE BLOOD COUNT [id number] RBC 4.54 10e12/L 2013 Unknown COMPLETE BLOOD COUNT [id number] HGB 12.1 g/dL 4 Unknown COMPLETE BLOOD COUNT [id number] HCT DET 38.0 % 4 Unknown COMPLETE BLOOD COUNT [id number] MCV 83.7 fL 4 Unknown COMPLETE BLOOD COUNT [id number] MCH 26.7 pg 4 Unknown COMPLETE BLOOD COUNT [id number] MCHC 31.8 g/dL 4 Unknown COMPLETE BLOOD COUNT [id number] PLT 218 10e9/L 01/29/20 14 Unknown COMPLETE BLOOD COUNT [id number] MPV 12.8 fL 4 Unknown COMPLETE BLOOD COUNT [id number] RACHNA % 56.5 % 4 Unknown COMPLETE BLOOD COUNT [id number] LY % 32.3 % 4 Unknown COMPLETE BLOOD COUNT [id number] MON % 8.6 % 4 Unknown COMPLETE BLOOD COUNT [id number] EOS % 2.1 % 4 Unknown COMPLETE BLOOD COUNT [id number] BASO % 0.5 % 4 Unknown COMPLETE BLOOD COUNT [id number] RDW 18.4 % 4 Unknown COMPLETE BLOOD COUNT [id number] ABS RACHNA 3.67 10e9/L 014 Unknown COMPLETE BLOOD COUNT 3999922 ABS LYMPH 2.10 10e9/L 014 Unknown COMPLETE BLOOD COUNT [id number] ABS MONO 0.56 10e9/L 014 Unknown COMPLETE BLOOD COUNT [id number] ABS EOS 0.14 10e9/L 014 Unknown COMPLETE BLOOD COUNT [id number] ABS BASO 0.03 10e9/L 014 Unknown COMPLETE BLOOD COUNT [id number] RDW-SD 55.5 fL 4 Unknown COMPREHENSIVE METABOLIC 73757 AST 13 U/L 2013 Unknown COMPREHENSIVE METABOLIC 18019 ALT 7 IU/L 2013 Unknown COMPREHENSIVE METABOLIC 10801 BUN 8 MG/DL 2013 Unknown COMPREHENSIVE METABOLIC 84504 ALBUMIN 4.5 GM/DL 2013 Unknown COMPREHENSIVE METABOLIC 04533 CHLORIDE 106 MMOL/L 01/28 Unknown COMPREHENSIVE METABOLIC 84459 BILI TOT 0.4 MG/DL 2013 Unknown COMPREHENSIVE METABOLIC 49922 ALK PHOS 55 U/L 2013 Unknown COMPREHENSIVE METABOLIC 61367 SODIUM 138 MMOL/L 01/28 Unknown COMPREHENSIVE METABOLIC 98689 CREATININE 0.73 MG/DL 01/11 Unknown COMPREHENSIVE METABOLIC 53294 CALCIUM 9.9 MG/DL 2013 Unknown COMPREHENSIVE METABOLIC 88731 POTASSIUM 3.8 MMOL/L 01/28 Unknown COMPREHENSIVE METABOLIC 62001 PROT TOT 7.4 GM/DL 2013 Unknown COMPREHENSIVE METABOLIC 86971 Glucose 96 MG/DL 2013 Unknown COMPREHENSIVE METABOLIC 91855 BICARB 27 MMOL/L 2013 Unknown COMPREHENSIVE METABOLIC 18181 ANION GAP 5 MEQ/L 2013 Unknown AMYLASE 34718 AMYLASE 42 IU/L 01/28/2014 Unknown GFR CALC 9336013 GFR AA >60 ML/MIN 01/28/2014 Unknown GFR CALC [id number] GFR NON-AA >60 ML/MIN 01/28/2014 Unknown Procedures Procedure Codes Date URINE TEST CPT-4: 87154 11/16/2019 URINE CULTURE/ COLONY COUNT CPT-4: 22126 06/15/2019 URINALYSIS NONAUTO W/O SCOPE CPT-4: 44565 06/05/2019 CEFTRIAXONE SODIUM INJECTION CPT-4: J0696 06/05/2019 THER/PROPH/DIAG INJ SC/IM CPT-4: 98696 06/05/2019 URINE CULTURE/ COLONY COUNT CPT-4: 36611 06/05/2019 URINE CULTURE/ COLONY COUNT CPT-4: 58366 03/02/2019 THER/PROPH/DIAG INJ SC/IM CPT-4: 77349 02/16/2019 URINE CULTURE/ COLONY COUNT CPT-4: 30684 02/16/2019 URINALYSIS NONAUTO W/O SCOPE CPT-4: 99396 02/16/2019 URINE TEST CPT-4: 06401 02/16/2019 THER/PROPH/DIAG INJ SC/IM CPT-4: 98967 05/21/2018 THER/PROPH/DIAG INJ SC/IM CPT-4: 29053 11/26/2017 THER/PROPH/DIAG INJ SC/IM CPT-4: 26364 08/27/2017 THER/PROPH/DIAG INJ SC/IM CPT-4: 85306 06/06/2017 URINALYSIS NONAUTO W/O SCOPE CPT-4: 07185 06/06/2017 GC/CHLAMYDIA DNA ([facility]) CPT-4: 04382|98120 8 URINE CULTURE/ COLONY COUNT CPT-4: 07424 06/06/2017 THER/PROPH/DIAG INJ SC/IM CPT-4: 23661 01/04/2017 SPECIMEN HANDLING OFFICE-LAB CPT-4: 74425 10/18/2016 THER/PROPH/DIAG INJ SC/IM CPT-4: 49492 10/12/2016 INFLUENZA ASSAY W/OPTIC CPT-4: 52234 08/08/2016 THER/PROPH/DIAG INJ SC/IM CPT-4: 38508 07/25/2016 THER/PROPH/DIAG INJ SC/IM CPT-4: 55864 05/03/2016 THER/PROPH/DIAG INJ SC/IM CPT-4: 20201 02/20/2016 URINE TEST CPT-4: 72817 02/20/2016 AEROBIC WOUND CULTURE & STN CPT-4: 03839 12/23/2015 THER/PROPH/DIAG INJ SC/IM CPT-4: 19730 11/07/2015 URINE TEST CPT-4: 19033 11/07/2015 THER/PROPH/DIAG INJ SC/IM CPT-4: 78675 08/01/2015 THER/PROPH/DIAG INJ SC/IM CPT-4: 43741 05/11/2015 THER/PROPH/DIAG INJ SC/IM CPT-4: 47767 02/16/2015 THER/PROPH/DIAG INJ SC/IM CPT-4: 92082 11/29/2014 THER/PROPH/DIAG INJ SC/IM CPT-4: 82205 09/09/2014 URINE TEST CPT-4: 80054 06/16/2014 THER/PROPH/DIAG INJ SC/IM CPT-4: 15209 06/16/2014 ROUTINE VENIPUNCTURE CPT-4: 77550 10/07/2013 COMPLETE CBC W/AUTO DIFF WBC CPT-4: 15868 10/07/2013 CHORIONIC GONADOTROPIN TEST CPT-4: 92844 10/07/2013 URINE TEST CPT-4: 29427 09/15/2013 URINALYSIS NONAUTO W/O SCOPE CPT-4: 32394 06/24/2013 URINE CULTURE/ COLONY COUNT CPT-4: 71669 06/24/2013 URINE TEST CPT-4: 16765 09/08/2010 URINALYSIS NONAUTO W/O SCOPE CPT-4: 79903 07/24/2010 URINE CULTURE/ COLONY COUNT CPT-4: 61713 07/24/2010 DESTRUCT PREMALG LESION (Cryosurgery) CPT-4: 05281 DESTRUCT PREMALG LES 2-14 CPT-4: 50678 03/08/2010 Vital Signs Date Vital 11/16/2019 Blood Pressure 1: 119/75 Code: 8480-6 BMI: 24.4 Code: 10029-6 Heart Rate 1: 112 bpm Height: 5'9" Respiratory Rate: 15 bpm SpO2: 98% Tempera ture: 36.8 (C) / 98.2 (F) Weight: 165 lbs 07/07/2019 Blood Pressure 1: 126/82 Code: 8480-6 Heart Rate 1: 100 bpm SpO2: 99% Temperature: 36.8 (C) / 98.2 (F) 06/05/2019 Blood Pressure 1: 131/82 Code: 8480-6 BMI: 26.3 Code: 32753-0 Heart Rate 1: 109 bpm Height: 5'9" Respiratory Rate: 16 bpm SpO2: 99% Tempera ture: 36.7 (C) / 98.1 (F) Weight: 178 lbs 03/16/2019 Blood Pressure 1: 132/86 Code: 8480-6 Heart Rate 1: 73 bpm SpO2: 99% Temperature: 36.6 (C) / 97.9 (F) Weight: 158 lbs 03/03/2018 Blood Pressure 1: 120/88 Code: 8480-6 BMI: 23.9 Code: 62338-2 Heart Rate 1: 81 bpm Height: 5'9" Respiratory Rate: 18 bpm SpO2: 99% Tempera ture: 36.1 (C) / 97.0 (F) Weight: 162 lbs 10/18/2016 Blood Pressure 1: 108/78 Code: 8480-6 BMI: 22.6 Code: 59142-3 Heart Rate 1: 100 bpm Height: 5'9" Respiratory Rate: 20 bpm SpO2: 98% Tempera ture: 37.1 (C) / 98.8 (F) Weight: 153 lbs 08/08/2016 Blood Pressure 1: 114/78 Code: 8480-6 Heart Rate 1: 102 bpm Respiratory Rate: 20 bpm SpO2: 98% Temperature: 36.4 (C) / 97.6 (F) We ight: 152 lbs 05/15/2016 Blood Pressure 1: 124/80 Code: 8480-6 BMI: 23.2 Code: 36829-1 Heart Rate 1: 100 bpm Height: 5'9" Respiratory Rate: 20 bpm Temperature: 37 .0 (C) / 98.6 (F) Weight: 157 lbs 12/23/2015 Blood Pressure 1: 124/78 Code: 8480-6 BMI: 23.0 Code: 35782-6 Heart Rate 1: 92 bpm Height: 5'9" Respiratory Rate: 20 bpm SpO2: 97% Tempera ture: 36.9 (C) / 98.5 (F) Weight: 156 lbs 01/26/2015 Blood Pressure 1: 118/78 Code: 8480-6 BMI: 21.3 Code: 18488-6 Heart Rate 1: 100 bpm Height: 5'9" Respiratory Rate: 20 bpm SpO2: 97% Tempera ture: 36.6 (C) / 97.8 (F) Weight: 144 lbs 06/16/2014 Blood Pressure 1: 118/78 Code: 8480-6 BMI: 23.5 Code: 40071-2 Heart Rate 1: 78 bpm Height: 5'9" Respiratory Rate: 18 bpm Temperature: 36 .1 (C) / 97.0 (F) Weight: 159 lbs 01/28/2014 Blood Pressure 1: 124/78 Code: 8480-6 BMI: 23.2 Code: 74874-0 Heart Rate 1: 88 bpm Height: 5'9" Respiratory Rate: 22 bpm Temperature: 36 .1 (C) / 97.0 (F) Weight: 157 lbs 12/10/2013 Blood Pressure 1: 124/70 Code: 8480-6 BMI: 23.0 Code: 90662-7 Heart Rate 1: 82 bpm Height: 5'9" Respiratory Rate: 20 bpm Temperature: 36 .2 (C) / 97.2 (F) Weight: 156 lbs 10/20/2013 Blood Pressure 1: 118/82 Code: 8480-6 Heart Rate 1: 84 bpm Respiratory Rate: 22 bpm Temperature: 36.5 (C) / 97.7 (F) Weight: 150 lbs 10/07/2013 Blood Pressure 1: 120/80 Code: 8480-6 BMI: 22.2 Code: 02070-7 Heart Rate 1: 68 bpm Height: 5'9" Respiratory Rate: 22 bpm Temperature: 36 .2 (C) / 97.2 (F) Weight: 150 lbs 09/15/2013 Blood Pressure 1: 118/68 Code: 8480-6 BMI: 22.0 Code: 11942-2 Heart Rate 1: 78 bpm Height: 5'9" Respiratory Rate: 20 bpm Temperature: 36 .1 (C) / 97.0 (F) Weight: 149 lbs 06/24/2013 Blood Pressure 1: 112/74 Code: 8480-6 Heart Rate 1: 74 bpm Respiratory Rate: 20 bpm Temperature: 36.6 (C) / 97.9 (F) Weight: 150 lbs 03/05/2013 Blood Pressure 1: 126/88 Code: 8480-6 BMI: 23.5 Code: 59649-4 Heart Rate 1: 80 bpm Height: 5'9" Respiratory Rate: 20 bpm Temperature: 36 .6 (C) / 97.9 (F) Weight: 159 lbs 02/09/2013 Blood Pressure 1: 110/68 Code: 8480-6 BMI: 21.9 Code: 42080-9 Heart Rate 1: 74 bpm Height: 5'9" Respiratory Rate: 22 bpm Temperature: 36 .8 (C) / 98.2 (F) Weight: 148 lbs 09/08/2010 Blood Pressure 1: 124/90 Code: 8480-6 BMI: 21.4 Code: 05969-7 Height: 5'10" Temperature: 36.4 (C) / 97.6 [...] Diagnosis: control counseling[ICD10: Z30.09] Keyanna Gamamagaly RESENDIZ Compendium[facility] [employer] CPT-4: 98455 11/16/2019 ([id number]) OFFICE/OUTPATIENT VISIT EST Diagnosis: Urethritis[ICD10: N34.2] Diagnosis: History of renal stone[ICD10: Z87.442] Josefa BRIAN Cameo CPT-4: 06980 07/07/2019 ([id number]) NURSE/OUTPATIENT VISIT EST Diagnosis: Urinary tract infection[ICD10: N39.0] Josefa DE SOUZA [employer] [employer] CPT-4: 69546 06/15/2019 ([id number]) OFFICE/OUTPATIENT VISIT EST Diagnosis: Dysuria[ICD10: R30.0] Diagnosis: Pelvic pain in female[ICD10: R10.2] Keyanna T[facility]AMANTES DO [facility] CPT-4: 48320 06/05/2019 ([id number]) OFFICE/OUTPATIENT VISIT EST Diagnosis: Left wrist pain[ICD10: M25.532] Diagnosis: Swelling of left upper extremity[ICD10: M79.89] Keyanna TALAMANTES DO [facility] CPT-4: 93011 03/16/2019 ([id number]) NURSE/OUTPATIENT VISIT EST Diagnosis: Urinary tract infection[ICD10: N39.0] Josefa TALAMANTES [facility] CPT-4: 44577 03/02/2019 ([id number]) NURSE/OUTPATIENT VISIT EST Diagnosis: Irregular menstruation, unspecified[ICD10: N92.6] Diagnosis: Urinary tract infection[ICD10: N39.0] Josefa TALAMANTES [facility] CPT-4: 59460 02/16/2019 ([id number]) NURSE/OUTPATIENT VISIT EST Diagnosis: Irregular menstruation, unspecified[ICD10: N92.6] Josefa TALAMANTES [facility] CPT-4: 66393 05/21/2018 ([id number]) OFFICE/OUTPATIENT VISIT EST Diagnosis: Irregular menstruation, unspecified[ICD10: N92.6] Diagnosis: Diseases of lips[ICD10: K13.0] Diagnosis: 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] Keyanna TAL[facility]ANTES [facility] CPT-4: 47387 03/03/2018 ([id number]) NURSE/OUTPATIENT VISIT EST Diagnosis: Irregular menstruation, unspecified[ICD10: N92.6] Josefa TALAMANTES [facility] CPT-4: 16832 11/26/2017 ([id number]) OFFICE/OUTPATIENT VISIT EST Diagnosis: Irregular menstruation, unspecified[ICD10: N92.6] Josefa T[facility]ANTES [facility] CPT-4: 67244 08/27/2017 ([id number]) OFFICE/OUTPATIENT VISIT EST Diagnosis: Dysuria[ICD10: R30.0] Diagnosis: Irregular menstruation, unspecified[ICD10: N92.6] Josefa T[facility]AMANTES [facility] CPT-4: 84359 06/06/2017 ([id number]) OFFICE/OUTPATIENT VISIT EST Diagnosis: Irregular menstruation, unspecified[ICD10: N92.6] Josefa TAL[facility]ANTES [facility] CPT-4: 89961 01/04/2017 ([id number]) PREV VISIT EST AGE 18-39 Diagnosis: Encounter for general adult medical examination without abnormal findings[ICD10: Z00.00] Diagnosis: Encounter for gynecological examination (general) (routine) without abnormal findings[ICD10: Z01.419] Diagnosis: Gastro-esophageal reflux disease without esophagitis[ICD10: K21.9] Diagnosis: Dysphagia, pharyngeal phase[ICD10: R13.13] Josefa T[facility]ANTES [facility] CPT-4: 21907 10/18/2016 ([id number]) OFFICE/OUTPATIENT VISIT EST Diagnosis: Irregular menstruation, unspecified[ICD10: N92.6] Josefa TALAMANTES [facility] CPT-4: 64459 10/12/2016 ([id number]) OFFICE/OUTPATIENT VISIT EST Diagnosis: Fever, unspecified[ICD10: R50.9] Diagnosis: Influenza due to identified novel influenza A virus with other respiratory manifestations[ICD10: J09.X2] Catrina Bran JOSEFA TAL[facility]ANTES [facility] CPT-4: 63832 08/08/2016 ([id number]) OFFICE/OUTPATIENT VISIT EST Diagnosis: Irregular menstruation, unspecified[ICD10: N92.6] Josefa T[facility]ANTES [facility] CPT-4: 73954 07/25/2016 ([id number]) OFFICE/OUTPATIENT VISIT EST Diagnosis: Right upper quadrant pain[ICD10: R10.11] Diagnosis: Unspecified abdominal pain[ICD10: R10.9] Josefa T[facility]ANTES [facility] CPT-4: 23396 05/15/2016 ([id number]) OFFICE/OUTPATIENT VISIT EST Diagnosis: Irregular menstruation, unspecified[ICD10: N92.6] Josefa [facility]ANTES [facility] CPT-4: 88219 05/03/2016 ([id number]) OFFICE/OUTPATIENT VISIT EST Diagnosis: Irregular menstruation, unspecified[ICD10: N92.6] Josefa [facility]ANTES [facility] CPT-4: 69726 02/20/2016 OFFICE/OUTPATIENT VISIT EST Diagnosis: Cutaneous abscess of buttock[ICD10: L02.31] Kitty Caldera JOSEFA T[facility] CPT-4: 98080 12/23/2015 ([id number]) OFFICE/OUTPATIENT VISIT EST Diagnosis: Irregular menstruation, unspecified[ICD10: N92.6] Josefa TAL[facility]ANTES [facility] CPT-4: 33808 11/07/2015 ([id number]) OFFICE/OUTPATIENT VISIT EST Diagnosis: Irregular menstruation, unspecified[ICD10: N92.6] Josefa TALAMANTES [facility] CPT-4: 92658 08/01/2015 ([id number]) OFFICE/OUTPATIENT VISIT EST Diagnosis: Irregular menstruation, unspecified[ICD10: N92.6] Josefa T[facility]ANTES [facility] CPT-4: 02888 05/11/2015 ([id number]) OFFICE/OUTPATIENT VISIT EST Diagnosis: Irregular menstruation, unspecified[ICD10: N92.6] Josefa TAL[facility]ANTES [facility] CPT-4: 17999 02/16/2015 OFFICE/OUTPATIENT VISIT EST Diagnosis: SINUSITIS, ACUTE[ICD9: 461.9] Malgorzata VanErinelaere JOSEFA T[facility]ANTES [facility] CPT-4: 44069 01/26/2015 ([id number]) OFFICE/OUTPATIENT VISIT EST Diagnosis: IRREGULAR MENSTRUATION[ICD9: 626.4] Josefa TALAMANTES [facility] CPT-4: 72302 11/29/2014 ([id number]) OFFICE/OUTPATIENT VISIT EST Diagnosis: IRREGULAR MENSTRUATION[ICD9: 626.4] Josefa Thadgaetanoflaco ALIE KATTY TAL[facility]ANTES DO [facility] CPT-4: 84917 09/09/2014 ([id number]) OFFICE/OUTPATIENT VISIT EST Diagnosis: IRREGULAR MENSTRUATION[ICD9: 626.4] Diagnosis: General counseling and advice on contraceptive management[ICD9: V25.09] Diagnosis: Anxiety and depression[ICD9: 300.4] Malgorzata [facility]ALAMANTES [facility] CPT-4: 07935 06/16/2014 OFFICE/OUTPATIENT VISIT EST Diagnosis: Right upper quadrant pain[ICD9: 789.01] Malgorzata TALAMANTES [facility] CPT-4: 58037 01/28/2014 OFFICE/OUTPATIENT VISIT EST Diagnosis: Right upper quadrant pain[ICD9: 789.01] Malgorzata TALAMANTES [facility] CPT-4: 58202 12/10/2013 OFFICE/OUTPATIENT VISIT EST Diagnosis: Anxiety and depression[ICD9: 300.4] Malgorzata VillanuevaErinjuanjo HillMaria Teresa [facility] CPT-4: 74559 10/20/2013 OFFICE/OUTPATIENT VISIT EST Diagnosis: Menorrhagia[ICD9: 626.2] Malgorzata VillanuevaErinjuanjo PINTOLINE Waylon [facility] CPT-4: 61257 10/07/2013 OFFICE/OUTPATIENT VISIT EST Diagnosis: IRREGULAR MENSTRUATION[ICD9: 626.4] Malgorzata ALANIZ SMaria Teresa [facility] CPT-4: 97049 09/15/2013 OFFICE/OUTPATIENT VISIT EST Diagnosis: HEMATURIA NOS[ICD9: 599.70] Diagnosis: Abdominal discomfort in right upper quadrant[ICD9: 789.01] Malgorzata PINTOLINE SergioMaria Teresa [facility] CPT-4: 49405 06/24/2013 ([id number]) OFFICE/OUTPATIENT VISIT EST Diagnosis: ABDOMINAL PAIN[ICD9: 789.00] Diagnosis: GERD[ICD9: 530.81] Josefa Thadgaetanoflaco PINTOJOSEFA SergioMaria Teresa [facility] CPT-4: 79871 03/05/2013 OFFICE/OUTPATIENT VISIT EST Diagnosis: General counseling and advice on contraceptive management[ICD9: V25.09] Diagnosis: IRREGULAR MENSTRUATION[ICD9: 626.4] Malgorzata VillanuevaErinjuanjo ALANIZ Waylon TALAMANTES DO [facility] [facility] CPT-4: 25541 02/09/2013 ([id number]) OFFICE/OUTPATIENT VISIT GISEL TALAMANTES DO [facility] CPT-4: 29407 09/08/2010 ([id number]) OFFICE/OUTPATIENT VISIT GISEL TALAMANTES DO [facility] CPT-4: 34640 07/24/2010 Plan of Care Planned Activity Notes Codes Status Date Visit Diagnosis Plan: Encounter for gyne cological examination (general) (routine) with abnormal findings Discussion: fasting labs to be completed this week at [facility]. order written and given to patient. [...] Z87.442 07/07/2019 Appointment: Josefa Talamantes W[facility]el[facility] [phone] [id number] AC[facility] I[facility] 07/07/2019 Patient Education: nystatin- [employer] Coupon [id number] [email or web address] Completed 07/07/2019 Appointment: Josefa Talamantes WPtel: [address] [place] [address] UA 06/15/2019 Visit Diagnosis Plan: Dysuria Discussion: due to recur rent pain and worsening symptoms, rocephin 1 gm given in office. will send urine off for culture and call on saturday if any changes needed. instructed to push fluids through the w eekend and go to urgent care with any worsening. ICD-9 : 788.1 ICD-10 : R30.0 06/05/2019 Appointment: Keyanna Mejía [address] [place] [address] FOLLOW UP 06/05/2019 Visit Diagnosis Plan: Left [...] ICD-10 : M25.532 03/16/2019 Appointment: Keyanna Mejía [address] [place] [address] Hospital Follow Up 03/16/2019 Appointment: Josefa Talamantes WPtel: [address] [place] [address] UA 03/02/2019 Appointment: Josefa Talamantes WPtel: [address] [place] [address] [place] INJECTION 02/16/2019 Appointment: Josefa Talamantes WPtel: [address] [place] [address] [place] INJECTION 05/21/2018 Visit Diagnosis Plan: Diseases [...] performed in office and negative. 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 had pap october of 2016. not due until 2019 or patient turns 29. ICD-9 : 626.4 ICD-10 : N92.6 03/03/2018 Appointment: Keyanna Mejía [address] [place] [address] [place] ACUTE ILLNESS 03/03/2018 Patient Education: Patient Medication Summary Completed 03/03/2018 Care Plan: US EXAM OF HEAD AND NECK thyroid LOIN C : 56294-6 Pending 03/03/2018 Appointment: Josefa Talamantes WPtel: [address] [place] [address] US CANCELED 02/27/2018 Appointment: Josefa Talamantes WPtel: [address] [place], [place] [phone] [place] INJECTION 11/26/2017 Patient Education: Patient Medication Summary Completed 11/26/2017 Appointment: Josefa Talamantes WPtel: [address] [place], [place] [phone] [place] INJECTION 08/27/2017 Patient Education: Patient Medication Summary Completed 08/27/2017 Appointment: Josefa Talamantes WPtel: [address] [place], [place] [phone] [place] INJECTION 06/06/2017 Patient Education: Patient Medication Summary Completed 06/06/2017 Appointment: Josefa Talamantes WPtel: [address] [place], [place] [phone] [place] INJECTION 01/04/2017 Patient Education: Patient Medication Summary Completed 01/04/2017 Appointment: Josefa Talamantes WPtel: [address] [place], [place] [phone] [place] 11/19 lm `sl 11/21 lm `sl NO SHOW 11/22/19 17 Patient Education: Patient Medication Summary Completed 10/22/2016 Care Plan: US EXAM OF HEAD AND NECK Thyroid Ultrasound LOIN C : 25369-3 Pending 10/22/2016 Visit Diagnosis Plan: Gastro-esophageal reflux [...] : R13.13 10/18/2016 Appointment: Josefa Talamantes WPtel: [address] [place], [place] [id number] 10/17 lm `sl Annual Well Visit 10/18/2016 Patient Education: Patient Medication Summary Completed 10/18/2016 Appointment: Josefa Talamantes WPtel: [address] [place], [place] [phone] [place] INJECTION 10/12/2016 Patient Education: Patient Medication Summary Completed 10/12/2016 Visit Diagnosis Plan: Influenza due to i dentified novel influenza A virus with other respiratory manifestations Discussion: Flu A positive Rx as above Supportive care otherwise Contagious precautions discussed Notify kids' provider of exposure for their instructions ICD-9 : 488.02 ICD-10 : J09.X2 08/08/2016 Appointment: Catrina Bran [address] [place], [place] [id number] ACUTE ILLNESS 08/08/2016 Patient Education: Patient Medication Summary Completed 08/08/2016 Appointment: Jose[facility] Talamantes [facility]el[facility] [phone] [facility] [place] INJECTION 07/25/2016 Patient Education: Patient Medication Summary Completed 07/25/2016 Visit Plan: Finish abx and then recultur e 48hrs after completion Add levsin and zorvolex 05/15/2016 Appointment: Josefa Talamantes WPtel: [address] [place], [place] [id number] [place] 1/2 lm `sl 05/15 confirmed~ Hospital Follow Up 0 05/15/2016 Patient Education: Patient Medication Summary Completed 05/15/2016 Appointment: [facility] [facility] [place] 05/09 admitted into the hospital last night~ ACUTE ILLNESS 05/09/2016 Appointment: Josefa Talamantes WPtel: [address] [place], [place] [id number] [place] INJECTION 05/03/2016 Patient Education: Patient Medication Summary Completed 05/03/2016 Appointment: Josefa Talamantes WPtel: [address] [place], [place] [id number] [place] INJECTION 02/20/2016 Patient Education: Patient Medication Summary Completed 02/20/2016 Visit Plan: ERx for Bactrim and Bactroba n Called to [facility] Ultram 50mg 1 po q 4-6 hours prn pain #20 Warm moist heat to area qid Watch for s/s of worsening, go to over weekend Discussed SE of meds including s/s of SJS which would require an ER visit C&S obtained 12/23/2015 Appointment: Kitty Caldera WPtel: [address] [place], [place] [id number] [place] ACUTE ILLNESS 12/23/2015 Patient Education: Patient Medication Summary Completed 12/23/2015 Appointment: Josefa Talamantes WPtel: [phone] [facility] [place] INJECTION 11/07/2015 Patient Education: Patient Medication Summary Completed 11/07/2015 Appointment: Josefa Talamantes WPtel: [address] [place], [place] [id number] [place] INJECTION 08/01/2015 Patient Education: Patient Medication Summary Completed 08/01/2015 Appointment: Josefa Talamantes WPtel: [address] [place], [place] [phone] [place] INJECTION 05/11/2015 Patient Education: Patient Medication Summary Completed 05/11/2015 Appointment: Malgorzata Islas WPtel: [address] [place], [place] [phone] [place] PAP 04/05/2015 Appointment: Josefa Talamantes WPtel: [address] [place], [place] [phone] [place] INJECTION 02/16/2015 Patient Education: Patient Medication Summary Completed 02/16/2015 Visit Plan: Daily nasal saline rinses Fl onase nasal spray and daily Zyrtec Medrol dose pack Z-jhonathan as directed 01/26/2015 Appointment: Malgorzata Islas WPtel: [address] [place], [place] [phone] [place] ACUTE ILLNESS 01/26/2015 Patient Education: Patient Medication Summary Completed 01/26/2015 Appointment: Josefa Talamantes WPtel: [address] [place], [place] [phone] [place] INJECTION 11/29/2014 Patient Education: Patient Medication Summary Completed 11/29/2014 Appointment: Josefa Talamantes WPtel: [address] [place], [place] [phone] [place] INJECTION 09/09/2014 Patient Education: Patient Medication Summary Completed 09/09/2014 Appointment: Malgorzata Islas WPtel: [address] [place], [place] [phone] [place] FOLLOW UP 06/16/2014 Patient Education: Patient Medication Summary Completed 06/16/2014 Appointment: Malgorzata Islas WPtel: [address] [place], [place] [phone] [place] 06/02/14 appointment scheduled 06/03/14 no showed PAP 06/03/2014 Appointment: Malgorzata Islas WPtel: [address] [place] [address] [place] FOLLOW UP 01/28/2014 Patient Education: Patient Medication Summary Completed 01/28/2014 Care Plan: COMPREH[place] : [address]-3 Ordered 01/28/2014 Care Plan: AMYLASE Pending 4 Appointment: Malgorzata Islas WPtel: [address] [place] [address] FOLLOW UP 12/10/2013 Patient Education: Patient Medication Summary Completed 12/10/2013 Appointment: Malgorzata Islas WPtel: [address] [place] [address] 11/11 vm 11/12 No Show FOLLOW UP 11/12/2013 Appointment: Malgorzata Islas WPtel: [address] [place] [address] FOLLOW UP 10/20/2013 Patient Education: Patient Medication Summary Completed 10/20/2013 Visit Plan: Quantitative Hcg and CBC tod ay. Transvaginal/Transabdominal sonogram stat Discussed with [employer] WORK[employer] and [facility] 343 so will recheck in 1week as long as not worsening 10/07/2013 Appointment: Malgorzata Islas WPtel: [address] [place], [place] [phone] AC[facility] 10/07/2013 Patient Education: Patient Medication Summary Completed 10/07/2013 Appointment: Malgorzata Islas WPtel: [address] [place], [place] [phone] ACUTE [facility]LL[facility] 09/15/2013 Patient Education: Patient Medication Summary Completed 09/15/2013 Appointment: Malgorzata Islas WPtel: [address] [place], [place] [phone] ACUTE ILLNESS 06/24/2013 Patient Education: Patient Medication Summary Completed 06/24/2013 Appointment: Malgorzata Islas WPtel: [address] [place] [address] [place] appt was scheduled today then patient no showed the visit ACUTE ILLNESS 05/21/2013 Visit Plan: Check CMP, CBC, UA CT scan o f abdomen Omeprazole 03/05/2013 Appointment: Josefa Talamantes WPtel: [address] [place] [address] ACUTE ILLNESS 03/05/2013 Appointment: Josefa Talamantes WPtel: [address] [place] [address] 03/02 canceled, wrong patient FOLLOW UP Patient Education: Patient Medication Summary Completed 03/05/2013 Appointment: Malgorzata Islas WPtel: [address] [place] [address] ACUTE ILLNESS 02/09/2013 Patient Education: Patient Medication Summary Completed 02/09/2013 Appointment: Justine Ortega WPtel: [address] [place] [address] ACUTE ILLNESS 09/08/2010 Patient Education: Patient Medication Summary Completed 09/08/2010 Appointment: Justine Ortega WPtel: [address] [place] [address] [place] PAP 08/08/2010 Appointment: Justine Ortega WPtel: [address] [place] [address] ACUTE ILLNESS 07/24/2010 Patient Education: Patient Medication Summary Completed 07/24/2010 Visit Plan: All warts shaved with 11-rekha de scalpel and then cryotherapy x3 Will followup with DNCB treatment 03/08/2010 Appointment: Josefa Talamantes WPtel: [address] [place] [address] ACUTE ILLNESS 03/08/2010 Patient Education: Patient Medication Summary Completed 03/08/2010 Appointment: Josefa Tlaamantes WPtel: [address] [place] [address] [place] PAP 09/14/2009 Referral: Roney Galloway WPtel: [address] [facility] 3 [id number] [place] Referral Initiated Referral: Brian Floyd WPtel: [address] [id number] [place] Referral Initiated Referral: Referral Initiated Instructions [...] CBC today. Transvaginal/Transabdominal sonogram stat Discussed with [employer] WORK[employer] and [facility] 343 so will recheck in [...]
--- OUTSIDE RECORDS SUMMARY | 2019-12-11 22:02 | XMS REPORT | CCD ---
Author Author Brenda Talamantes D.O. Organization [facility] Address [address] [place] [address] Phone Care Team Providers Care Communication Clerk Name Role Phone Josefa Talamantes D.O., PP Unavailable CCM Unavailable Summary Purpose Interface Exchange Insurance Providers Payer name Policy type / Coverage type Covered republican ID Effective Begin Date Effective End Date AETNA [facility] Commercial Insurance [id number] Unknown Family History Family History data not found Social History Social History Element Codes Description Effective Dates Tobacco history SNOMED CT: 106877672 Unknown if ever smoked 01/12 Allergies, Adverse [...] Date Active Diflucan 100 mg tablet RxNorm: 457765 1 Tablet(s) Oral QD 07/07/2019 07/14/2019 Inactive Flomax 0.4 mg capsule RxNorm: 996172 1 Capsule(s) Oral QPM for kidney stone 07/07/2019 08/06/2019 Inactive nystatin 100,000 unit/gram topical cream RxNorm: 065641 Application Topical two times a day to periurethral area 07/07/2019 11/16/2019 Inactive Bactrim DS 800 mg-160 mg tablet RxNorm: 970718 1 Tablet(s) Oral two times a day 06/08/2019 06/13/2019 Inactive Bactrim DS 800 mg-160 mg tablet RxNorm: 625918 1 Tablet(s) Oral two times a day 06/08/2019 06/07/2019 Inactive ibuprofen 800 mg tablet RxNorm: 837901 1 Tablet(s) Oral Q8H as needed 03/16/2019 06/05/2019 Inactive Cipro 500 mg tablet RxNorm: 126659 1 Tablet(s) Oral two times a day 03/04/2019 03/11/2019 Inactive Cipro 500 mg tablet RxNorm: 212098 1 Tablet(s) Oral two times a day 03/04/2019 03/03/2019 Inactive Macrobid 100 mg capsule RxNorm: 567562 1 Capsule(s) Oral two ti mes a day 02/16/2019 02/15/2019 Inactive Macrobid 100 mg capsule RxNorm: 770473 1 Capsule(s) Oral two ti mes a [...] 11/24/2017 Inactive Pepcid 40 mg tablet RxNorm: 123863 1 Tablet(s) PO QD 10/18/201603/02 Inactive Depo-Provera 150 mg/mL intramuscular suspension RxNorm: 1000 128 Milliliter(s) 1 Milliliter(s) IM 10/10/2016 06/04/2017 Inactive Tamiflu 75 mg capsule RxNorm: 392219 1 Capsule(s) PO BID 08/08/2016 0 08/12/2016 Inactive Levsin 0.125 mg tablet RxNorm: 4173564 1 Tablet(s) PO TID for fl ank pain 05/15/2016 10/17/2016 Inactive Bactrim DS 800 mg-160 mg tablet RxNorm: 813106 1 Tablet(s) PO BID 0 12/23/2015 01/01/2016 Inactive mupirocin 2 % topical ointment RxNorm: 325841 Application TOP TID 0 12/23/2015 12/29/2015 Inactive Depo-Provera 150 mg/mL intramuscular suspension RxNorm: 1000 128 Milliliter(s) 1 Milliliter(s) IM 11/08/2015 10/09/2016 Inactive Xanax 0.25 mg tablet RxNorm: 197656 TAKE ONE-HALF TO ON E TABLET BY MOUTH NEEDED FOR ANXIETY 04/11/2015 05/10/2015 Inactive Generic For:X ANAX 0.25 MG TABLET 04/11/2015 2:54:57 PM Depo-Provera 150 mg/mL intramuscular suspension RxNorm: 1000 128 Milliliter(s) 1 Milliliter(s) IM 02/15/2015 11/07/2015 Inactive azithromycin 250 mg tablet RxNorm: 663728 2 Tablet(s) P O today, then one tablet on days 2 - 5 01/26/2015 12/22/2015 Inactive Medrol (Jhonathan) 4 mg tablets in a dose pack RxNorm: 537361 Tablet(s) P O 01/26/2015 12/22/2015 Inactive Depo-Provera 150 mg/mL intramuscular suspension RxNorm: 1000 128 1 Milliliter(s) IM 09/06/2014 02/15/2015 Inactive Xanax 0.25 mg tablet RxNorm: 957399 1/2 - 1 Tablet(s) PO as nee ded for anxiety 06/16/2014 04/12/2015 Inactive Zoloft 50 mg tablet RxNorm: 115060 1 Tablet(s) PO QD 06/16/201412/21 Inactive Flexeril [...] 2014 Inactive Xanax 0.25 mg tablet RxNorm: 706982 1/2 - 1 Tablet(s) PO as nee ded for anxiety 01/28/2014 06/15/2014 Inactive naproxen 500 mg tablet RxNorm: 333423 1 Tablet(s) PO BID 12/10/2013 0 01/08/2014 Inactive Zoloft 50 mg tablet RxNorm: 901072 1 Tablet(s) PO QD 12/10/201304/08 Inactive Xanax 0.25 mg tablet RxNorm: 018782 1/2 - 1 Tablet(s) PO as nee ded for anxiety 12/10/2013 01/27/2014 Inactive Xanax 0.25 mg tablet RxNorm: 345419 1 Tablet(s) PO Q8H 10/20/2013 Inactive Zoloft 50 mg tablet RxNorm: 151074 1/2 Tablet(s) PO x 6 days then on1 tablet daily 10/20/2013 11/18/2013 Inactive Loestrin Fe 06/01 (28) 1 mg-20 mcg tablet RxNorm: 4465387 1 Table t(s) PO QD 10/20/2013 05/03/2014 Inactive phenazopyridine 100 mg tablet RxNorm: 1523529 1 Tablet(s) PO Q8H 06/26/2013 Inactive Macrobid 100 mg capsule RxNorm: 812705 1 Capsule(s) PO BID 06/25/19 14 07/04/2013 Inactive phenazopyridine 100 mg tablet RxNorm: 3926922 1 Tablet(s) PO Q8H 06/24/2013 Inactive Macrobid 100 mg capsule RxNorm: 908538 1 Capsule(s) PO BID 07/25/1908/02/2010 Inactive Apri 0.15 mg-30 mcg tablet RxNorm: 226416 1 Tablet(s) PO QD As directed. No Start Date 06/23/2013 Inactive omeprazole 40 mg capsule,delayed release RxNorm: 100471 1 Capsule(s) PO QD for stomach No Start Date 06/23/2013 Inactive naproxen 500 mg tablet RxNorm: 733302 1 Tablet(s) PO BID No Start D ate 06/15/2014 Inactive hydrocodone 10 mg-acetaminophen 325 mg tablet RxNorm: 938958 Tablet(s) PO as needed for pain No Start Date 12/22/2015 Inactive Zoloft 50 mg tablet RxNorm: 918695 1 Tablet(s) PO QD No Start Date Inactive hydrocodone 5 mg-acetaminophen 325 mg tablet RxNorm: 550525 1 Tablet(s) PO QID as needed for pain No Start Date 09/14/2013 Inactive Medication Administered No Medication Administered data Immunizations No Immunization data Results Observation Observation Code Item Item Code Result Date S ervice Location LIPASE 36627 LIPASE 14 IU/L 01/28/2014 Unknown COMPLETE BLOOD COUNT [id number] WBC 6.5 10e9/L 01/29/20 14 Unknown COMPLETE BLOOD COUNT [id number] RBC 4.54 10e12/L 2013 Unknown COMPLETE BLOOD COUNT [id number] HGB 12.1 g/dL 4 Unknown COMPLETE BLOOD COUNT [id number] HCT DET 38.0 % 4 Unknown COMPLETE BLOOD COUNT [id number] MCV 83.7 fL 4 Unknown COMPLETE BLOOD COUNT [id number] MCH 26.7 pg 4 Unknown COMPLETE BLOOD COUNT [id number] MCHC 31.8 g/dL 4 Unknown COMPLETE BLOOD COUNT [id number] PLT 218 10e9/L 01/29/20 14 Unknown COMPLETE BLOOD COUNT [id number] MPV 12.8 fL 4 Unknown COMPLETE BLOOD COUNT [id number] RACHNA % 56.5 % 4 Unknown COMPLETE BLOOD COUNT [id number] LY % 32.3 % 4 Unknown COMPLETE BLOOD COUNT [id number] MON % 8.6 % 4 Unknown COMPLETE BLOOD COUNT [id number] EOS % 2.1 % 4 Unknown COMPLETE BLOOD COUNT [id number] BASO % 0.5 % 4 Unknown COMPLETE BLOOD COUNT [id number] RDW 18.4 % 4 Unknown COMPLETE BLOOD COUNT [id number] ABS RACHNA 3.67 10e9/L 014 Unknown COMPLETE BLOOD COUNT [id number] ABS LYMPH 2.10 10e9/L 014 Unknown COMPLETE BLOOD COUNT [id number] ABS MONO 0.56 10e9/L 014 Unknown COMPLETE BLOOD COUNT [id number] ABS EOS 0.14 10e9/L 014 Unknown COMPLETE BLOOD COUNT [id number] ABS BASO 0.03 10e9/L 014 Unknown COMPLETE BLOOD COUNT [id number] RDW-SD 55.5 fL 4 Unknown COMPREHENSIVE METABOLIC 41116 AST 13 U/L 2013 Unknown COMPREHENSIVE METABOLIC 40347 ALT 7 IU/L 2013 Unknown COMPREHENSIVE METABOLIC 59777 BUN 8 MG/DL 2013 Unknown COMPREHENSIVE METABOLIC 21791 ALBUMIN 4.5 GM/DL 2013 Unknown COMPREHENSIVE METABOLIC 54433 CHLORIDE 106 MMOL/L 01/28 Unknown COMPREHENSIVE METABOLIC 46006 BILI TOT 0.4 MG/DL 2013 Unknown COMPREHENSIVE METABOLIC 59099 ALK PHOS 55 U/L 2013 Unknown COMPREHENSIVE METABOLIC 41296 SODIUM 138 MMOL/L 01/28 Unknown COMPREHENSIVE METABOLIC 97119 CREATININE 0.73 MG/DL 01/11 Unknown COMPREHENSIVE METABOLIC 89222 CALCIUM 9.9 MG/DL 2013 Unknown COMPREHENSIVE METABOLIC 92122 POTASSIUM 3.8 MMOL/L 01/28 Unknown COMPREHENSIVE METABOLIC 31596 PROT TOT 7.4 GM/DL 2013 Unknown COMPREHENSIVE METABOLIC 46835 Glucose 96 MG/DL 2013 Unknown COMPREHENSIVE METABOLIC 32066 BICARB 27 MMOL/L 2013 Unknown COMPREHENSIVE METABOLIC 58297 ANION GAP 5 MEQ/L 2013 Unknown AMYLASE 11099 AMYLASE 42 IU/L 01/28/2014 Unknown GFR CALC [id number] GFR AA >60 ML/MIN 01/28/2014 Unknown GFR CALC [id number] GFR NON-AA >60 ML/MIN 01/28/2014 Unknown Procedures Procedure Codes Date URINE TEST CPT-4: 04639 11/16/2019 URINE CULTURE/ COLONY COUNT CPT-4: 40598 06/15/2019 URINALYSIS NONAUTO W/O SCOPE CPT-4: 65580 06/05/2019 CEFTRIAXONE SODIUM INJECTION CPT-4: J0696 06/05/2019 THER/PROPH/DIAG INJ SC/IM CPT-4: 12237 06/05/2019 URINE CULTURE/ COLONY COUNT CPT-4: 14475 06/05/2019 URINE CULTURE/ COLONY COUNT CPT-4: 01866 03/02/2019 THER/PROPH/DIAG INJ SC/IM CPT-4: 61886 02/16/2019 URINE CULTURE/ COLONY COUNT CPT-4: 85547 02/16/2019 URINALYSIS NONAUTO W/O SCOPE CPT-4: 78157 02/16/2019 URINE TEST CPT-4: 76465 02/16/2019 THER/PROPH/DIAG INJ SC/IM CPT-4: 03520 05/21/2018 THER/PROPH/DIAG INJ SC/IM CPT-4: 68096 11/26/2017 THER/PROPH/DIAG INJ SC/IM CPT-4: 57618 08/27/2017 THER/PROPH/DIAG INJ SC/IM CPT-4: 05458 06/06/2017 URINALYSIS NONAUTO W/O SCOPE CPT-4: 67006 06/06/2017 GC/CHLAMYDIA DNA ([facility]) CPT-4: 97763|27512 8 URINE CULTURE/ COLONY COUNT CPT-4: 92290 06/06/2017 THER/PROPH/DIAG INJ SC/IM CPT-4: 67981 01/04/2017 SPECIMEN HANDLING OFFICE-LAB CPT-4: 62413 10/18/2016 THER/PROPH/DIAG INJ SC/IM CPT-4: 96219 10/12/2016 INFLUENZA ASSAY W/OPTIC CPT-4: 38563 08/08/2016 THER/PROPH/DIAG INJ SC/IM CPT-4: 81081 07/25/2016 THER/PROPH/DIAG INJ SC/IM CPT-4: 24887 05/03/2016 THER/PROPH/DIAG INJ SC/IM CPT-4: 42702 02/20/2016 URINE TEST CPT-4: 68891 02/20/2016 AEROBIC WOUND CULTURE & STN CPT-4: 34687 12/23/2015 THER/PROPH/DIAG INJ SC/IM CPT-4: 50786 11/07/2015 URINE TEST CPT-4: 83026 11/07/2015 THER/PROPH/DIAG INJ SC/IM CPT-4: 57014 08/01/2015 THER/PROPH/DIAG INJ SC/IM CPT-4: 33745 05/11/2015 THER/PROPH/DIAG INJ SC/IM CPT-4: 66248 02/16/2015 THER/PROPH/DIAG INJ SC/IM CPT-4: 82524 11/29/2014 THER/PROPH/DIAG INJ SC/IM CPT-4: 01895 09/09/2014 URINE TEST CPT-4: 96440 06/16/2014 THER/PROPH/DIAG INJ SC/IM CPT-4: 47454 06/16/2014 ROUTINE VENIPUNCTURE CPT-4: 56390 10/07/2013 COMPLETE CBC W/AUTO DIFF WBC CPT-4: 98249 10/07/2013 CHORIONIC GONADOTROPIN TEST CPT-4: 14871 10/07/2013 URINE TEST CPT-4: 79432 09/15/2013 URINALYSIS NONAUTO W/O SCOPE CPT-4: 92525 06/24/2013 URINE CULTURE/ COLONY COUNT CPT-4: 82769 06/24/2013 URINE TEST CPT-4: 79265 09/08/2010 URINALYSIS NONAUTO W/O SCOPE CPT-4: 02650 07/24/2010 URINE CULTURE/ COLONY COUNT CPT-4: 74261 07/24/2010 DESTRUCT PREMALG LESION ([facility]) CPT-4: 74873 DESTRUCT PREMALG LES 2-14 CPT-4: 56200 03/08/2010 Vital Signs Date Vital 11/16/2019 Blood Pressure 1: 119/75 Code: 8480-6 BMI: 24.4 Code: 04936-5 Heart Rate 1: 112 bpm Height: 5'9" Respiratory Rate: 15 bpm SpO2: 98% Tempera ture: 36.8 (C) / 98.2 (F) Weight: 165 lbs 07/07/2019 Blood Pressure 1: 126/82 Code: 8480-6 Heart Rate 1: 100 bpm SpO2: 99% Temperature: 36.8 (C) / 98.2 (F) 06/05/2019 Blood Pressure 1: 131/82 Code: 8480-6 BMI: 26.3 Code: 99768-1 Heart Rate 1: 109 bpm Height: 5'9" Respiratory Rate: 16 bpm SpO2: 99% Tempera ture: 36.7 (C) / 98.1 (F) Weight: 178 lbs 03/16/2019 Blood Pressure 1: 132/86 Code: 8480-6 Heart Rate 1: 73 bpm SpO2: 99% Temperature: 36.6 (C) / 97.9 (F) Weight: 158 lbs 03/03/2018 Blood Pressure 1: 120/88 Code: 8480-6 BMI: 23.9 Code: 55413-0 Heart Rate 1: 81 bpm Height: 5'9" Respiratory Rate: 18 bpm SpO2: 99% Tempera ture: 36.1 (C) / 97.0 (F) Weight: 162 lbs 10/18/2016 Blood Pressure 1: 108/78 Code: 8480-6 BMI: 22.6 Code: 26202-5 Heart Rate 1: 100 bpm Height: 5'9" Respiratory Rate: 20 bpm SpO2: 98% Tempera ture: 37.1 (C) / 98.8 (F) Weight: 153 lbs 08/08/2016 Blood Pressure 1: 114/78 Code: 8480-6 Heart Rate 1: 102 bpm Respiratory Rate: 20 bpm SpO2: 98% Temperature: 36.4 (C) / 97.6 (F) We ight: 152 lbs 05/15/2016 Blood Pressure 1: 124/80 Code: 8480-6 BMI: 23.2 Code: 35370-8 Heart Rate 1: 100 bpm Height: 5'9" Respiratory Rate: 20 bpm Temperature: 37 .0 (C) / 98.6 (F) Weight: 157 lbs 12/23/2015 Blood Pressure 1: 124/78 Code: 8480-6 BMI: 23.0 Code: 50572-5 Heart Rate 1: 92 bpm Height: 5'9" Respiratory Rate: 20 bpm SpO2: 97% Tempera ture: 36.9 (C) / 98.5 (F) Weight: 156 lbs 01/26/2015 Blood Pressure 1: 118/78 Code: 8480-6 BMI: 21.3 Code: 03477-6 Heart Rate 1: 100 bpm Height: 5'9" Respiratory Rate: 20 bpm SpO2: 97% Tempera ture: 36.6 (C) / 97.8 (F) Weight: 144 lbs 06/16/2014 Blood Pressure 1: 118/78 Code: 8480-6 BMI: 23.5 Code: 33295-3 Heart Rate 1: 78 bpm Height: 5'9" Respiratory Rate: 18 bpm Temperature: 36 .1 (C) / 97.0 (F) Weight: 159 lbs 01/28/2014 Blood Pressure 1: 124/78 Code: 8480-6 BMI: 23.2 Code: 07876-1 Heart Rate 1: 88 bpm Height: 5'9" Respiratory Rate: 22 bpm Temperature: 36 .1 (C) / 97.0 (F) Weight: 157 lbs 12/10/2013 Blood Pressure 1: 124/70 Code: 8480-6 BMI: 23.0 Code: 30284-6 Heart Rate 1: 82 bpm Height: 5'9" Respiratory Rate: 20 bpm Temperature: 36 .2 (C) / 97.2 (F) Weight: 156 lbs 10/20/2013 Blood Pressure 1: 118/82 Code: 8480-6 Heart Rate 1: 84 bpm Respiratory Rate: 22 bpm Temperature: 36.5 (C) / 97.7 (F) Weight: 150 lbs 10/07/2013 Blood Pressure 1: 120/80 Code: 8480-6 BMI: 22.2 Code: 74842-7 Heart Rate 1: 68 bpm Height: 5'9" Respiratory Rate: 22 bpm Temperature: 36 .2 (C) / 97.2 (F) Weight: 150 lbs 09/15/2013 Blood Pressure 1: 118/68 Code: 8480-6 BMI: 22.0 Code: 06381-3 Heart Rate 1: 78 bpm Height: 5'9" Respiratory Rate: 20 bpm Temperature: 36 .1 (C) / 97.0 (F) Weight: 149 lbs 06/24/2013 Blood Pressure 1: 112/74 Code: 8480-6 Heart Rate 1: 74 bpm Respiratory Rate: 20 bpm Temperature: 36.6 (C) / 97.9 (F) Weight: 150 lbs 03/05/2013 Blood Pressure 1: 126/88 Code: 8480-6 BMI: 23.5 Code: 60304-4 Heart Rate 1: 80 bpm Height: 5'9" Respiratory Rate: 20 bpm Temperature: 36 .6 (C) / 97.9 (F) Weight: 159 lbs 02/09/2013 Blood Pressure 1: 110/68 Code: 8480-6 BMI: 21.9 Code: 88277-1 Heart Rate 1: 74 bpm Height: 5'9" Respiratory Rate: 22 bpm Temperature: 36 .8 (C) / 98.2 (F) Weight: 148 lbs 09/08/2010 Blood Pressure 1: 124/90 Code: 8480-6 BMI: 21.4 Code: 69981-0 Height: 5'10" Temperature: 36.4 (C) / 97.6 [...] Diagnosis: control counseling[ICD10: Z30.09] Keyanna Gamamagaly RESENDIZ EnsygniaMaria Teresa [employer] CPT-4: 29704 11/16/2019 ([id number]) OFFICE/OUTPATIENT VISIT EST Diagnosis: Urethritis[ICD10: N34.2] Diagnosis: History of renal stone[ICD10: Z87.442] Josefa BRIAN [employer] CPT-4: 30166 07/07/2019 ([id number]) NURSE/OUTPATIENT VISIT EST Diagnosis: Urinary tract infection[ICD10: N39.0] Josefa DE SOUZA EnsygniaMaria Teresa [employer] CPT-4: 43708 06/15/2019 ([id number]) OFFICE/OUTPATIENT VISIT EST Diagnosis: Dysuria[ICD10: R30.0] Diagnosis: Pelvic pain in female[ICD10: R10.2] [facility] CPT-4: 77179 06/05/2019 ([id number]) OFFICE/OUTPATIENT VISIT EST Diagnosis: Left wrist pain[ICD10: M25.532] Diagnosis: Swelling of left upper extremity[ICD10: M79.89] Keyanna [facility] CPT-4: 11765 03/16/2019 ([id number]) NURSE/OUTPATIENT VISIT EST Diagnosis: Urinary tract infection[ICD10: N39.0] Josefa [facility] CPT-4: 19675 03/02/2019 ([id number]) NURSE/OUTPATIENT VISIT EST Diagnosis: Irregular menstruation, unspecified[ICD10: N92.6] Diagnosis: Urinary tract infection[ICD10: N39.0] [facility] CPT-4: 88777 02/16/2019 ([id number]) NURSE/OUTPATIENT VISIT EST Diagnosis: Irregular menstruation, unspecified[ICD10: N92.6] Josefa [facility] CPT-4: 98447 05/21/2018 ([id number]) OFFICE/OUTPATIENT VISIT EST Diagnosis: Irregular menstruation, unspecified[ICD10: N92.6] Diagnosis: Diseases of lips[ICD10: K13.0] Diagnosis: 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] Keyanna [facility] CPT-4: 85892 03/03/2018 ([id number]) NURSE/OUTPATIENT VISIT EST Diagnosis: Irregular menstruation, unspecified[ICD10: N92.6] Josefa [facility] CPT-4: 15823 11/26/2017 ([id number]) OFFICE/OUTPATIENT VISIT EST Diagnosis: Irregular menstruation, unspecified[ICD10: N92.6] Josefa [facility] CPT-4: 79030 08/27/2017 ([id number]) OFFICE/OUTPATIENT VISIT EST Diagnosis: Dysuria[ICD10: R30.0] Diagnosis: Irregular menstruation, unspecified[ICD10: N92.6] [facility] CPT-4: 39806 06/06/2017 ([id number]) OFFICE/OUTPATIENT VISIT EST Diagnosis: Irregular menstruation, unspecified[ICD10: N92.6] Josefa [facility] CPT-4: 10221 01/04/2017 ([id number]) PREV VISIT EST AGE 18-39 Diagnosis: Encounter for general adult medical examination without abnormal findings[ICD10: Z00.00] Diagnosis: Encounter for gynecological examination (general) (routine) without abnormal findings[ICD10: Z01.419] Diagnosis: Gastro-esophageal reflux disease without esophagitis[ICD10: K21.9] Diagnosis: Dysphagia, pharyngeal phase[ICD10: R13.13] Josefa [facility] CPT-4: 16173 10/18/2016 ([id number]) OFFICE/OUTPATIENT VISIT EST Diagnosis: Irregular menstruation, unspecified[ICD10: N92.6] Josefa [facility] CPT-4: 21436 10/12/2016 ([id number]) OFFICE/OUTPATIENT VISIT EST Diagnosis: Fever, unspecified[ICD10: R50.9] Diagnosis: Influenza due to identified novel influenza A virus with other respiratory manifestations[ICD10: J09.X2] Catrina Bran [facility] CPT-4: 16970 08/08/2016 ([id number]) OFFICE/OUTPATIENT VISIT EST Diagnosis: Irregular menstruation, unspecified[ICD10: N92.6] Josefa [facility] CPT-4: 35536 07/25/2016 ([id number]) OFFICE/OUTPATIENT VISIT EST Diagnosis: Right upper quadrant pain[ICD10: R10.11] Diagnosis: Unspecified abdominal pain[ICD10: R10.9] Josefa [facility] CPT-4: 00310 05/15/2016 ([id number]) OFFICE/OUTPATIENT VISIT EST Diagnosis: Irregular menstruation, unspecified[ICD10: N92.6] Josefa [facility] CPT-4: 23638 05/03/2016 ([id number]) OFFICE/OUTPATIENT VISIT EST Diagnosis: Irregular menstruation, unspecified[ICD10: N92.6] Josefa [facility] CPT-4: 21910 02/20/2016 OFFICE/OUTPATIENT VISIT EST Diagnosis: Cutaneous abscess of buttock[ICD10: L02.31] Kitty Caldera [facility] CPT-4: 59969 12/23/2015 ([id number]) OFFICE/OUTPATIENT VISIT EST Diagnosis: Irregular menstruation, unspecified[ICD10: N92.6] Josefa [facility] CPT-4: 87790 11/07/2015 ([id number]) OFFICE/OUTPATIENT VISIT EST Diagnosis: Irregular menstruation, unspecified[ICD10: N92.6] Josefa [facility] CPT-4: 98278 08/01/2015 ([id number]) OFFICE/OUTPATIENT VISIT EST Diagnosis: Irregular menstruation, unspecified[ICD10: N92.6] Josefa [facility] CPT-4: 24250 05/11/2015 ([id number]) OFFICE/OUTPATIENT VISIT EST Diagnosis: Irregular menstruation, unspecified[ICD10: N92.6] Josefa [facility] CPT-4: 20843 02/16/2015 OFFICE/OUTPATIENT VISIT EST Diagnosis: SINUSITIS, ACUTE[ICD9: 461.9] Malgorzata VanErinelaere [facility] CPT-4: 45515 01/26/2015 ([id number]) OFFICE/OUTPATIENT VISIT EST Diagnosis: IRREGULAR MENSTRUATION[ICD9: 626.4] Josefa [facility] CPT-4: 22183 11/29/2014 ([id number]) OFFICE/OUTPATIENT VISIT EST Diagnosis: IRREGULAR MENSTRUATION[ICD9: 626.4] Josefa Thadgaetanoflaco ALIE KATTY [facility] CPT-4: 61024 09/09/2014 ([id number]) OFFICE/OUTPATIENT VISIT EST Diagnosis: IRREGULAR MENSTRUATION[ICD9: 626.4] Diagnosis: General counseling and advice on contraceptive management[ICD9: V25.09] Diagnosis: Anxiety and depression[ICD9: 300.4] Malgorzata TALAMANTES [facility] CPT-4: 28189 06/16/2014 OFFICE/OUTPATIENT VISIT EST Diagnosis: Right upper quadrant pain[ICD9: 789.01] Malgorzata TALAMANTES [facility] CPT-4: 78138 01/28/2014 OFFICE/OUTPATIENT VISIT EST Diagnosis: Right upper quadrant pain[ICD9: 789.01] Malgorzata TALAMANTES [facility] CPT-4: 49036 12/10/2013 OFFICE/OUTPATIENT VISIT EST Diagnosis: Anxiety and depression[ICD9: 300.4] Malgorzata VillanuevaErinjuanjo HillMaria Teresa [facility] CPT-[facility]: 56485 10/20/2013 OFFICE/OUTPATIENT VISIT EST Diagnosis: Menorrhagia[ICD9: 626.2] Malgorzata VillanuevaErinjuanjo PINTOLINE Waylon R[facility] CPT-4: 41557 10/07/2013 OFFICE/OUTPATIENT VISIT EST Diagnosis: IRREGULAR MENSTRUATION[ICD9: 626.4] Malgorzata ALANIZ SMaria Teresa DUC [facility] CPT-4: 45395 09/15/2013 OFFICE/OUTPATIENT VISIT EST Diagnosis: HEMATURIA NOS[ICD9: 599.70] Diagnosis: Abdominal discomfort in right upper quadrant[ICD9: 789.01] Malgorzata PINTOLINE SergioMaria Teresa DUC [facility] CPT-4: 70768 06/24/2013 ([id number]) OFFICE/OUTPATIENT VISIT EST Diagnosis: ABDOMINAL PAIN[ICD9: 789.00] Diagnosis: GERD[ICD9: 530.81] Josefa Thadgaetanoflaco PINTOJOSEFA SergioMaria Teresa DUC [facility] CPT-4: 03628 03/05/2013 OFFICE/OUTPATIENT VISIT EST Diagnosis: General counseling and advice on contraceptive management[ICD9: V25.09] Diagnosis: IRREGULAR MENSTRUATION[ICD9: 626.4] Malgorzata VillanuevaErinjuanjo ALANIZ Waylon TALAMANTES DO [email or web address] CPT-4: 91841 02/09/2013 ([id number]) OFFICE/OUTPATIENT VISIT GISEL TALAMANTES DO [email or web address] CPT-4: 47799 09/08/2010 ([id number]) OFFICE/OUTPATIENT VISIT GISEL TALAMANTES DO [email or web address] CPT-4: 98678 07/24/2010 Plan of Care Planned Activity Notes Codes Status Date Visit Diagnosis Plan: Encounter for gyne cological examination (general) (routine) with abnormal findings Discussion: fasting labs to be completed this week at [facility]. order written and given to patient. [...] Z87.442 07/07/2019 Appointment: Josefa Talamantes [facility] [phone] [id number] [facility] 07/07/2019 Patient Education: nystatin- [employer] Coupon [id number] [email or web address] Completed 07/07/2019 Appointment: Josefa Talamantes WPtel: [address] [place] [address] UA 06/15/2019 Visit Diagnosis Plan: Dysuria Discussion: due to recur rent pain and worsening symptoms, rocephin 1 gm given in office. will send urine off for culture and call on saturday if any changes needed. instructed to push fluids through the w eekend and go to urgent care with any worsening. ICD-9 : 788.1 ICD-10 : R30.0 06/05/2019 Appointment: Keyanna Mejía [address] [place] [address] FOLLOW UP 06/05/2019 Visit Diagnosis Plan: Left [...] ICD-10 : M25.532 03/16/2019 Appointment: Keyanna Mejía [address] [place] [address] Hospital Follow Up 03/16/2019 Appointment: Josefa Talamantes WPtel: [address] [place] [address] UA 03/02/2019 Appointment: Josefa Talamantes WPtel: [address] [place] [address] US INJECTION 02/16/2019 Appointment: Josefa Talamantes WPtel: [address] [place] [address] US INJECTION 05/21/2018 Visit Diagnosis Plan: Diseases [...] performed in office and negative. 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 had pap october of 2016. not due until 2019 or patient turns 29. ICD-9 : 626.4 ICD-10 : N92.6 03/03/2018 Appointment: Keyanna Mejía [address] [place] [address] [place] ACUTE ILLNESS 03/03/2018 Patient Education: Patient Medication Summary Completed 03/03/2018 Care Plan: US EXAM OF HEAD AND NECK thyroid LOIN C : 80565-9 Pending 03/03/2018 Appointment: Josefa Talamantes WPtel: [address] [place] [address] [place] CANCELED 02/27/2018 Appointment: Josefa Talamantes WPtel: [address] [place], [place] [phone] [place] INJECTION 11/26/2017 Patient Education: Patient Medication Summary Completed 11/26/2017 Appointment: Josefa Talamantes WPtel: [address] [place], [place] [phone] [place] INJECTION 08/27/2017 Patient Education: Patient Medication Summary Completed 08/27/2017 Appointment: Josefa Talamantes WPtel: [address] [place], [place] [phone] [place] INJECTION 06/06/2017 Patient Education: Patient Medication Summary Completed 06/06/2017 Appointment: Josefa Talamantes WPtel: [address] [place], [place] [phone] [place] INJECTION 01/04/2017 Patient Education: Patient Medication Summary Completed 01/04/2017 Appointment: Josefa Talamantes WPtel: [address] [place], [place] [phone] [place] 11/19 lm `sl 11/21 lm `sl NO SHOW 11/22/19 17 Patient Education: Patient Medication Summary Completed 10/22/2016 Care Plan: US EXAM OF HEAD AND NECK Thyroid Ultrasound LOIN C : 90690-0 Pending 10/22/2016 Visit Diagnosis Plan: Gastro-esophageal reflux [...] : R13.13 10/18/2016 Appointment: Josefa Talamantes WPtel: [address] [place], [place] [phone] 10/17 lm `sl Annual Well Visit 10/18/2016 Patient Education: Patient Medication Summary Completed 10/18/2016 Appointment: Josefa Talamantes WPtel: [address] [place], [place] [phone] [place] INJECTION 10/12/2016 Patient Education: Patient Medication Summary Completed 10/12/2016 Visit Diagnosis Plan: Influenza due to i dentified novel influenza A virus with other respiratory manifestations Discussion: Flu A positive Rx as above Supportive care otherwise Contagious precautions discussed Notify kids' provider of exposure for their instructions ICD-9 : 488.02 ICD-10 : J09.X2 08/08/2016 Appointment: Catrina Bran [address] [place], [place] [id number] ACUTE ILLNESS 08/08/2016 Patient Education: Patient Medication Summary Completed 08/08/2016 Appointment: Josefa Talamantes [facility]el[phone] [facility] [place] [facility] 07/25/2016 Patient Education: Patient Medication Summary Completed 07/25/2016 Visit Plan: Finish abx and then recultur e 48hrs after completion Add levsin and zorvolex 05/15/2016 Appointment: Josefa Talamantes WPtel: [address] [place] [id number] [place] 1/2 lm `sl 05/15 confirmed~ Hospital Follow Up 0 05/15/2016 Patient Education: Patient Medication Summary Completed 05/15/2016 [facility]ment: [facility] [facility] [place] 05/09 admitted into the hospital last night~ ACUTE ILLNESS 05/09/2016 Appointment: Josefa Talamantes WPtel: [address] [place] [id number] [place] INJECTION 05/03/2016 Patient Education: Patient Medication Summary Completed 05/03/2016 Appointment: Josefa Talamantes WPtel: [address] [place] [id number] [place] INJECTION 02/20/2016 Patient Education: Patient Medication Summary Completed 02/20/2016 Visit Plan: ERx for Bactrim and Bactroba n Called to [facility] Ultram 50mg 1 po q 4-6 hours prn pain #20 Warm moist heat to area qid Watch for s/s of worsening, go to over weekend Discussed SE of meds including s/s of SJS which would require an ER visit C&S obtained 12/23/2015 Appointment: Kitty Caldera WPtel: [phone] [place], [place] [id number] [place] ACUTE ILLNESS 12/23/2015 Patient Education: Patient Medication Summary Completed 12/23/2015 Appointment: Josefa Talamantes WPtel: [phone] [facility] [place] INJECTION 11/07/2015 Patient Education: Patient Medication Summary Completed 11/07/2015 Appointment: Josefa Talamantes WPtel: [address] [place], [place] [id number] [place] INJECTION 08/01/2015 Patient Education: Patient Medication Summary Completed 08/01/2015 Appointment: Josefa Talamantes WPtel: [address] [place], [place] [id number] [place] INJECTION 05/11/2015 Patient Education: Patient Medication Summary Completed 05/11/2015 Appointment: Malgorzata Islas WPtel: [address] [place], [place] [phone] [place] PAP 04/05/2015 Appointment: Josefa Talamantes WPtel: [address] [place], [place] [phone] [place] INJECTION 02/16/2015 Patient Education: Patient Medication Summary Completed 02/16/2015 Visit Plan: Daily nasal saline rinses Fl onase nasal spray and daily Zyrtec Medrol dose pack Z-jhonathan as directed 01/26/2015 Appointment: Malgorzata Islas WPtel: [address] [place], [place] [id number] [place] ACUTE ILLNESS 01/26/2015 Patient Education: Patient Medication Summary Completed 01/26/2015 Appointment: Josefa Talamantes WPtel: [address] [place], [place] [phone] [place] INJECTION 11/29/2014 Patient Education: Patient Medication Summary Completed 11/29/2014 Appointment: Josefa Talamantes WPtel: [address] [place], [place] [phone] [place] INJECTION 09/09/2014 Patient Education: Patient Medication Summary Completed 09/09/2014 Appointment: Malgorzata Islas WPtel: [address] [place], [place] [phone] [place] FOLLOW UP 06/16/2014 Patient Education: Patient Medication Summary Completed 06/16/2014 Appointment: Malgorzata Islas WPtel: [address] [place], [place] [phone] [place] 06/02/14 appointment scheduled 06/03/14 no showed PAP 06/03/2014 Appointment: Malgorzata Islas WPtel: [address] [place] [address] [place] FOLLOW UP 01/28/2014 Patient Education: Patient Medication Summary Completed 01/28/2014 Care Plan: [place] : [id number] Ordered 01/28/2014 Care Plan: AMYLASE Pending 4 Appointment: Malgorzata Islas WPtel: [address] [place] [address] FOLLOW UP 12/10/2013 Patient Education: Patient Medication Summary Completed 12/10/2013 Appointment: Malgorzata Islas WPtel: [address] [place] [address] 11/11 vm 11/12 No Show FOLLOW UP 11/12/2013 Appointment: Malgorzata Islas WPtel: [address] [place] [address] FOLLOW UP 10/20/2013 Patient Education: Patient Medication Summary Completed 10/20/2013 Visit Plan: Quantitative Hcg and CBC tod ay. Transvaginal/Transabdominal sonogram stat Discussed with [employer]IST and [facility] 343 so will recheck in 1week as long as not worsening 10/07/2013 Appointment: Malgorzata Islas WPtel: [address] [place], [place] [id number] ACUTE ILLNESS 10/07/2013 Patient Education: Patient Medication Summary Completed 10/07/2013 Appointment: Malgorzata Islas WPtel: [address] [place], [place] [phone] ACUTE [facility] 09/15/2013 Patient Education: Patient Medication Summary Completed 09/15/2013 Appointment: Malgorzata Islas WPtel: [address] [place], [place] [phone] ACUTE ILLNESS 06/24/2013 Patient Education: Patient Medication Summary Completed 06/24/2013 Appointment: Malgorzata Islas WPtel: [address] [place] [address] [place] appt was scheduled today then patient no showed the visit ACUTE ILLNESS 05/21/2013 Visit Plan: Check CMP, CBC, UA CT scan o f abdomen Omeprazole 03/05/2013 Appointment: Josefa Talamantes WPtel: [address] [place] [address] ACUTE ILLNESS 03/05/2013 Appointment: Josefa Talamantes WPtel: [address] [place] [address] 03/02 canceled, wrong patient FOLLOW UP Patient Education: Patient Medication Summary Completed 03/05/2013 Appointment: Malgorzata Islas WPtel: [address] [place] [address] ACUTE ILLNESS 02/09/2013 Patient Education: Patient Medication Summary Completed 02/09/2013 Appointment: Justine Ortega WPtel: [address] [place] [address] ACUTE ILLNESS 09/08/2010 Patient Education: Patient Medication Summary Completed 09/08/2010 Appointment: Justine Ortega WPtel: [address] [place] [address] [place] PAP 08/08/2010 Appointment: Justine Ortega WPtel: [address] [place] [address] ACUTE ILLNESS 07/24/2010 Patient Education: Patient Medication Summary Completed 07/24/2010 Visit Plan: All warts shaved with 11-rekha de scalpel and then cryotherapy x3 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 [id number] [place] Referral Initiated Referral: Referral Initiated Instructions [...] CBC today. Transvaginal/Transabdominal sonogram stat Discussed with [employer]IST and [facility] 343 so will recheck in [...]
--- OUTSIDE RECORDS SUMMARY | 2019-12-11 22:02 | XMS REPORT | CCD ---
Author Author Brenda Talamantes D.O. Organization JOSEFA TALAMANTES DO [facility] Address [address] [place] [address] Phone Care Team Providers Care Traffic Engineering Director Name Role Phone Josefa Talamantes D.O., PP Unavailable CCM Unavailable Summary Purpose Interface Exchange Insurance Providers Payer name Policy type / Coverage type Covered democrat ID Effective Begin Date Effective End Date [facility] Commercial Insurance [id number] Unknown Family History Family History data not found Social History Social History Element Codes Description Effective Dates Tobacco history SNOMED CT: 500202936 Unknown if ever smoked 01/12 Allergies, Adverse [...] Date Active Diflucan 100 mg tablet RxNorm: 811861 1 Tablet(s) Oral QD 07/07/2019 07/14/2019 Inactive Flomax 0.4 mg capsule RxNorm: 191574 1 Capsule(s) Oral QPM for kidney stone 07/07/2019 08/06/2019 Inactive nystatin 100,000 unit/gram topical cream RxNorm: 492664 Application Topical two times a day to periurethral area 07/07/2019 11/16/2019 Inactive Bactrim DS 800 mg-160 mg tablet RxNorm: 708433 1 Tablet(s) Oral two times a day 06/08/2019 06/13/2019 Inactive Bactrim DS 800 mg-160 mg tablet RxNorm: 352206 1 Tablet(s) Oral two times a day 06/08/2019 06/07/2019 Inactive ibuprofen 800 mg tablet RxNorm: 502057 1 Tablet(s) Oral Q8H as needed 03/16/2019 06/05/2019 Inactive Cipro 500 mg tablet RxNorm: 895100 1 Tablet(s) Oral two times a day 03/04/2019 03/11/2019 Inactive Cipro 500 mg tablet RxNorm: 224277 1 Tablet(s) Oral two times a day 03/04/2019 03/03/2019 Inactive Macrobid 100 mg capsule RxNorm: 015673 1 Capsule(s) Oral two ti mes a day 02/16/2019 02/15/2019 Inactive Macrobid 100 mg capsule RxNorm: 761560 1 Capsule(s) Oral two ti mes a [...] 11/24/2017 Inactive Pepcid 40 mg tablet RxNorm: 354266 1 Tablet(s) PO QD 10/18/201603/02 Inactive Depo-Provera 150 mg/mL intramuscular suspension RxNorm: 1000 128 Milliliter(s) 1 Milliliter(s) IM 10/10/2016 06/04/2017 Inactive Tamiflu 75 mg capsule RxNorm: 760498 1 Capsule(s) PO BID 08/08/2016 0 08/12/2016 Inactive Levsin 0.125 mg tablet RxNorm: 5584032 1 Tablet(s) PO TID for fl ank pain 05/15/2016 10/17/2016 Inactive Bactrim DS 800 mg-160 mg tablet RxNorm: 100268 1 Tablet(s) PO BID 0 12/23/2015 01/01/2016 Inactive mupirocin 2 % topical ointment RxNorm: 648888 Application TOP TID 0 12/23/2015 12/29/2015 Inactive Depo-Provera 150 mg/mL intramuscular suspension RxNorm: 1000 128 Milliliter(s) 1 Milliliter(s) IM 11/08/2015 10/09/2016 Inactive Xanax 0.25 mg tablet RxNorm: 956205 TAKE ONE-HALF TO ON E TABLET BY MOUTH NEEDED FOR ANXIETY 04/11/2015 05/10/2015 Inactive Generic For:X ANAX 0.25 MG TABLET 04/11/2015 2:54:57 PM Depo-Provera 150 mg/mL intramuscular suspension RxNorm: 1000 128 Milliliter(s) 1 Milliliter(s) IM 02/15/2015 11/07/2015 Inactive azithromycin 250 mg tablet RxNorm: 946210 2 Tablet(s) P O today, then one tablet on days 2 - 5 01/26/2015 12/22/2015 Inactive Medrol (Jhonathan) 4 mg tablets in a dose pack RxNorm: 650237 Tablet(s) P O 01/26/2015 12/22/2015 Inactive Depo-Provera 150 mg/mL intramuscular suspension RxNorm: 1000 128 1 Milliliter(s) IM 09/06/2014 02/15/2015 Inactive Xanax 0.25 mg tablet RxNorm: 249829 1/2 - 1 Tablet(s) PO as nee ded for anxiety 06/16/2014 04/12/2015 Inactive Zoloft 50 mg tablet RxNorm: 058786 1 Tablet(s) PO QD 06/16/201412/21 Inactive Flexeril [...] 2014 Inactive Xanax 0.25 mg tablet RxNorm: 038018 1/2 - 1 Tablet(s) PO as nee ded for anxiety 01/28/2014 06/15/2014 Inactive naproxen 500 mg tablet RxNorm: 539588 1 Tablet(s) PO BID 12/10/2013 0 01/08/2014 Inactive Zoloft 50 mg tablet RxNorm: 744104 1 Tablet(s) PO QD 12/10/201304/08 Inactive Xanax 0.25 mg tablet RxNorm: 549052 1/2 - 1 Tablet(s) PO as nee ded for anxiety 12/10/2013 01/27/2014 Inactive Xanax 0.25 mg tablet RxNorm: 997197 1 Tablet(s) PO Q8H 10/20/2013 Inactive Zoloft 50 mg tablet RxNorm: 016123 1/2 Tablet(s) PO x 6 days then on1 tablet daily 10/20/2013 11/18/2013 Inactive Loestrin Fe 06/01 (28) 1 mg-20 mcg tablet RxNorm: 5453322 1 Table t(s) PO QD 10/20/2013 05/03/2014 Inactive phenazopyridine 100 mg tablet RxNorm: 6491661 1 Tablet(s) PO Q8H 06/26/2013 Inactive Macrobid 100 mg capsule RxNorm: 347799 1 Capsule(s) PO BID 06/25/19 14 07/04/2013 Inactive phenazopyridine 100 mg tablet RxNorm: 3440762 1 Tablet(s) PO Q8H 06/24/2013 Inactive Macrobid 100 mg capsule RxNorm: 244111 1 Capsule(s) PO BID 07/25/1908/02/2010 Inactive Apri 0.15 mg-30 mcg tablet RxNorm: 136790 1 Tablet(s) PO QD As directed. No Start Date 06/23/2013 Inactive omeprazole 40 mg capsule,delayed release RxNorm: 571921 1 Capsule(s) PO QD for stomach No Start Date 06/23/2013 Inactive naproxen 500 mg tablet RxNorm: 824774 1 Tablet(s) PO BID No Start D ate 06/15/2014 Inactive hydrocodone 10 mg-acetaminophen 325 mg tablet RxNorm: 279820 Tablet(s) PO as needed for pain No Start Date 12/22/2015 Inactive Zoloft 50 mg tablet RxNorm: 464726 1 Tablet(s) PO QD No Start Date Inactive hydrocodone 5 mg-acetaminophen 325 mg tablet RxNorm: 689567 1 Tablet(s) PO QID as needed for pain No Start Date 09/14/2013 Inactive Medication Administered No Medication Administered data Immunizations No Immunization data Results Observation Observation Code Item Item Code Result Date S ervice Location LIPASE 63476 LIPASE 14 IU/L 01/28/2014 Unknown COMPLETE BLOOD COUNT [id number] WBC 6.5 10e9/L 01/29/20 14 Unknown COMPLETE BLOOD COUNT [id number] RBC 4.54 10e12/L 2013 Unknown COMPLETE BLOOD COUNT [id number] HGB 12.1 g/dL 4 Unknown COMPLETE BLOOD COUNT [id number] HCT DET 38.0 % 4 Unknown COMPLETE BLOOD COUNT [id number] MCV 83.7 fL 4 Unknown COMPLETE BLOOD COUNT [id number] MCH 26.7 pg 4 Unknown COMPLETE BLOOD COUNT [id number] MCHC 31.8 g/dL 4 Unknown COMPLETE BLOOD COUNT [id number] PLT 218 10e9/L 01/29/20 14 Unknown COMPLETE BLOOD COUNT [id number] MPV 12.8 fL 4 Unknown COMPLETE BLOOD COUNT [id number] RACHNA % 56.5 % 4 Unknown COMPLETE BLOOD COUNT [id number] LY % 32.3 % 4 Unknown COMPLETE BLOOD COUNT [id number] MON % 8.6 % 4 Unknown COMPLETE BLOOD COUNT [id number] EOS % 2.1 % 4 Unknown COMPLETE BLOOD COUNT [id number] BASO % 0.5 % 4 Unknown COMPLETE BLOOD COUNT [id number] RDW 18.4 % 4 Unknown COMPLETE BLOOD COUNT [id number] ABS RACHNA 3.67 10e9/L 014 Unknown COMPLETE BLOOD COUNT [id number] ABS LYMPH 2.10 10e9/L 014 Unknown COMPLETE BLOOD COUNT [id number] ABS MONO 0.56 10e9/L 014 Unknown COMPLETE BLOOD COUNT [id number] ABS EOS 0.14 10e9/L 014 Unknown COMPLETE BLOOD COUNT [id number] ABS BASO 0.03 10e9/L 014 Unknown COMPLETE BLOOD COUNT [id number] RDW-SD 55.5 fL 4 Unknown COMPREHENSIVE METABOLIC 33911 AST 13 U/L 2013 Unknown COMPREHENSIVE METABOLIC 62076 ALT 7 IU/L 2013 Unknown COMPREHENSIVE METABOLIC 67322 BUN 8 MG/DL 2013 Unknown COMPREHENSIVE METABOLIC 43861 ALBUMIN 4.5 GM/DL 2013 Unknown COMPREHENSIVE METABOLIC 20652 CHLORIDE 106 MMOL/L 01/28 Unknown COMPREHENSIVE METABOLIC 74181 BILI TOT 0.4 MG/DL 2013 Unknown COMPREHENSIVE METABOLIC 63267 ALK PHOS 55 U/L 2013 Unknown COMPREHENSIVE METABOLIC 82329 SODIUM 138 MMOL/L 01/28 Unknown COMPREHENSIVE METABOLIC 00310 CREATININE 0.73 MG/DL 01/11 Unknown COMPREHENSIVE METABOLIC 06537 CALCIUM 9.9 MG/DL 2013 Unknown COMPREHENSIVE METABOLIC 97320 POTASSIUM 3.8 MMOL/L 01/28 Unknown COMPREHENSIVE METABOLIC 96484 PROT TOT 7.4 GM/DL 2013 Unknown COMPREHENSIVE METABOLIC 44283 Glucose 96 MG/DL 2013 Unknown COMPREHENSIVE METABOLIC 38546 BICARB 27 MMOL/L 2013 Unknown COMPREHENSIVE METABOLIC 83049 ANION GAP 5 MEQ/L 2013 Unknown AMYLASE 88988 AMYLASE 42 IU/L 01/28/2014 Unknown GFR CALC 0064175 GFR AA >60 ML/MIN 01/28/2014 Unknown GFR CALC [id number] GFR NON-AA >60 ML/MIN 01/28/2014 Unknown Procedures Procedure Codes Date URINE TEST CPT-4: 08599 11/16/2019 URINE CULTURE/ COLONY COUNT CPT-4: 56025 06/15/2019 URINALYSIS NONAUTO W/O SCOPE CPT-4: 98053 06/05/2019 CEFTRIAXONE SODIUM INJECTION CPT-4: J0696 06/05/2019 THER/PROPH/DIAG INJ SC/IM CPT-4: 73407 06/05/2019 URINE CULTURE/ COLONY COUNT CPT-4: 67393 06/05/2019 URINE CULTURE/ COLONY COUNT CPT-4: 98184 03/02/2019 THER/PROPH/DIAG INJ SC/IM CPT-4: 17344 02/16/2019 URINE CULTURE/ COLONY COUNT CPT-4: 95507 02/16/2019 URINALYSIS NONAUTO W/O SCOPE CPT-4: 44058 02/16/2019 URINE TEST CPT-4: 06078 02/16/2019 THER/PROPH/DIAG INJ SC/IM CPT-4: 16841 05/21/2018 THER/PROPH/DIAG INJ SC/IM CPT-4: 98608 11/26/2017 THER/PROPH/DIAG INJ SC/IM CPT-4: 27908 08/27/2017 THER/PROPH/DIAG INJ SC/IM CPT-4: 30152 06/06/2017 URINALYSIS NONAUTO W/O SCOPE CPT-4: 46862 06/06/2017 GC/CHLAMYDIA DNA ([facility]) CPT-4: 70703|88254 8 URINE CULTURE/ COLONY COUNT CPT-4: 38286 06/06/2017 THER/PROPH/DIAG INJ SC/IM CPT-4: 62927 01/04/2017 SPECIMEN HANDLING OFFICE-LAB CPT-4: 43805 10/18/2016 THER/PROPH/DIAG INJ SC/IM CPT-4: 01048 10/12/2016 INFLUENZA ASSAY W/OPTIC CPT-4: 30445 08/08/2016 THER/PROPH/DIAG INJ SC/IM CPT-4: 82663 07/25/2016 THER/PROPH/DIAG INJ SC/IM CPT-4: 78332 05/03/2016 THER/PROPH/DIAG INJ SC/IM CPT-4: 56085 02/20/2016 URINE TEST CPT-4: 36893 02/20/2016 AEROBIC WOUND CULTURE & STN CPT-4: 71985 12/23/2015 THER/PROPH/DIAG INJ SC/IM CPT-4: 53049 11/07/2015 URINE TEST CPT-4: 38037 11/07/2015 THER/PROPH/DIAG INJ SC/IM CPT-4: 48433 08/01/2015 THER/PROPH/DIAG INJ SC/IM CPT-4: 69362 05/11/2015 THER/PROPH/DIAG INJ SC/IM CPT-4: 22776 02/16/2015 THER/PROPH/DIAG INJ SC/IM CPT-4: 00318 11/29/2014 THER/PROPH/DIAG INJ SC/IM CPT-4: 57184 09/09/2014 URINE TEST CPT-4: 54997 06/16/2014 THER/PROPH/DIAG INJ SC/IM CPT-4: 23525 06/16/2014 ROUTINE VENIPUNCTURE CPT-4: 39982 10/07/2013 COMPLETE CBC W/AUTO DIFF WBC CPT-4: 64242 10/07/2013 CHORIONIC GONADOTROPIN TEST CPT-4: 50752 10/07/2013 URINE TEST CPT-4: 44462 09/15/2013 URINALYSIS NONAUTO W/O SCOPE CPT-4: 42922 06/24/2013 URINE CULTURE/ COLONY COUNT CPT-4: 14068 06/24/2013 URINE TEST CPT-4: 12584 09/08/2010 URINALYSIS NONAUTO W/O SCOPE CPT-4: 39917 07/24/2010 URINE CULTURE/ COLONY COUNT CPT-4: 07460 07/24/2010 DESTRUCT PREMALG LESION (Cryosurgery) CPT-4: 65755 DESTRUCT PREMALG LES 2-14 CPT-4: 55747 03/08/2010 Vital Signs Date Vital 11/16/2019 Blood Pressure 1: 119/75 Code: 8480-6 BMI: 24.4 Code: 53323-8 Heart Rate 1: 112 bpm Height: 5'9" Respiratory Rate: 15 bpm SpO2: 98% Tempera ture: 36.8 (C) / 98.2 (F) Weight: 165 lbs 07/07/2019 Blood Pressure 1: 126/82 Code: 8480-6 Heart Rate 1: 100 bpm SpO2: 99% Temperature: 36.8 (C) / 98.2 (F) 06/05/2019 Blood Pressure 1: 131/82 Code: 8480-6 BMI: 26.3 Code: 60460-0 Heart Rate 1: 109 bpm Height: 5'9" Respiratory Rate: 16 bpm SpO2: 99% Tempera ture: 36.7 (C) / 98.1 (F) Weight: 178 lbs 03/16/2019 Blood Pressure 1: 132/86 Code: 8480-6 Heart Rate 1: 73 bpm SpO2: 99% Temperature: 36.6 (C) / 97.9 (F) Weight: 158 lbs 03/03/2018 Blood Pressure 1: 120/88 Code: 8480-6 BMI: 23.9 Code: 00250-3 Heart Rate 1: 81 bpm Height: 5'9" Respiratory Rate: 18 bpm SpO2: 99% Tempera ture: 36.1 (C) / 97.0 (F) Weight: 162 lbs 10/18/2016 Blood Pressure 1: 108/78 Code: 8480-6 BMI: 22.6 Code: 65641-7 Heart Rate 1: 100 bpm Height: 5'9" Respiratory Rate: 20 bpm SpO2: 98% Tempera ture: 37.1 (C) / 98.8 (F) Weight: 153 lbs 08/08/2016 Blood Pressure 1: 114/78 Code: 8480-6 Heart Rate 1: 102 bpm Respiratory Rate: 20 bpm SpO2: 98% Temperature: 36.4 (C) / 97.6 (F) We ight: 152 lbs 05/15/2016 Blood Pressure 1: 124/80 Code: 8480-6 BMI: 23.2 Code: 71551-3 Heart Rate 1: 100 bpm Height: 5'9" Respiratory Rate: 20 bpm Temperature: 37 .0 (C) / 98.6 (F) Weight: 157 lbs 12/23/2015 Blood Pressure 1: 124/78 Code: 8480-6 BMI: 23.0 Code: 17443-0 Heart Rate 1: 92 bpm Height: 5'9" Respiratory Rate: 20 bpm SpO2: 97% Tempera ture: 36.9 (C) / 98.5 (F) Weight: 156 lbs 01/26/2015 Blood Pressure 1: 118/78 Code: 8480-6 BMI: 21.3 Code: 31275-6 Heart Rate 1: 100 bpm Height: 5'9" Respiratory Rate: 20 bpm SpO2: 97% Tempera ture: 36.6 (C) / 97.8 (F) Weight: 144 lbs 06/16/2014 Blood Pressure 1: 118/78 Code: 8480-6 BMI: 23.5 Code: 77221-4 Heart Rate 1: 78 bpm Height: 5'9" Respiratory Rate: 18 bpm Temperature: 36 .1 (C) / 97.0 (F) Weight: 159 lbs 01/28/2014 Blood Pressure 1: 124/78 Code: 8480-6 BMI: 23.2 Code: 21043-2 Heart Rate 1: 88 bpm Height: 5'9" Respiratory Rate: 22 bpm Temperature: 36 .1 (C) / 97.0 (F) Weight: 157 lbs 12/10/2013 Blood Pressure 1: 124/70 Code: 8480-6 BMI: 23.0 Code: 06980-7 Heart Rate 1: 82 bpm Height: 5'9" Respiratory Rate: 20 bpm Temperature: 36 .2 (C) / 97.2 (F) Weight: 156 lbs 10/20/2013 Blood Pressure 1: 118/82 Code: 8480-6 Heart Rate 1: 84 bpm Respiratory Rate: 22 bpm Temperature: 36.5 (C) / 97.7 (F) Weight: 150 lbs 10/07/2013 Blood Pressure 1: 120/80 Code: 8480-6 BMI: 22.2 Code: 12061-9 Heart Rate 1: 68 bpm Height: 5'9" Respiratory Rate: 22 bpm Temperature: 36 .2 (C) / 97.2 (F) Weight: 150 lbs 09/15/2013 Blood Pressure 1: 118/68 Code: 8480-6 BMI: 22.0 Code: 82250-3 Heart Rate 1: 78 bpm Height: 5'9" Respiratory Rate: 20 bpm Temperature: 36 .1 (C) / 97.0 (F) Weight: 149 lbs 06/24/2013 Blood Pressure 1: 112/74 Code: 8480-6 Heart Rate 1: 74 bpm Respiratory Rate: 20 bpm Temperature: 36.6 (C) / 97.9 (F) Weight: 150 lbs 03/05/2013 Blood Pressure 1: 126/88 Code: 8480-6 BMI: 23.5 Code: 41598-5 Heart Rate 1: 80 bpm Height: 5'9" Respiratory Rate: 20 bpm Temperature: 36 .6 (C) / 97.9 (F) Weight: 159 lbs 02/09/2013 Blood Pressure 1: 110/68 Code: 8480-6 BMI: 21.9 Code: 03464-4 Heart Rate 1: 74 bpm Height: 5'9" Respiratory Rate: 22 bpm Temperature: 36 .8 (C) / 98.2 (F) Weight: 148 lbs 09/08/2010 Blood Pressure 1: 124/90 Code: 8480-6 BMI: 21.4 Code: 08734-3 Height: 5'10" Temperature: 36.4 (C) / 97.6 [...] Diagnosis: control counseling[ICD10: Z30.09] Keyanna Gamamagaly RESENDIZ MyxerMaria Teresa Kopi CPT-4: 98425 11/16/2019 ([id number]) OFFICE/OUTPATIENT VISIT EST Diagnosis: Urethritis[ICD10: N34.2] Diagnosis: History of renal stone[ICD10: Z87.442] Josefa BRIAN TISSUELAB CPT-4: 76754 07/07/2019 ([id number]) NURSE/OUTPATIENT VISIT EST Diagnosis: Urinary tract infection[ICD10: N39.0] Josefa DE SOZUA MyxerMaria Teresa Kopi CPT-4: 70741 06/15/2019 ([id number]) OFFICE/OUTPATIENT VISIT EST Diagnosis: Dysuria[ICD10: R30.0] Diagnosis: Pelvic pain in female[ICD10: R10.2] Keyanna TALAMANTES DO [facility] CPT-4: 28815 06/05/2019 ([id number]) OFFICE/OUTPATIENT VISIT EST Diagnosis: Left wrist pain[ICD10: M25.532] Diagnosis: Swelling of left upper extremity[ICD10: M79.89] Keyanna TALAMANTES DO [facility] CPT-4: 04796 03/16/2019 ([id number]) NURSE/OUTPATIENT VISIT EST Diagnosis: Urinary tract infection[ICD10: N39.0] Josefa TALAMANTES DO [facility] CPT-4: 32965 03/02/2019 ([id number]) NURSE/OUTPATIENT VISIT EST Diagnosis: Irregular menstruation, unspecified[ICD10: N92.6] Diagnosis: Urinary tract infection[ICD10: N39.0] Josefa TALAMANTES DO [facility] CPT-4: 30103 02/16/2019 ([id number]) NURSE/OUTPATIENT VISIT EST Diagnosis: Irregular menstruation, unspecified[ICD10: N92.6] Josefa TALAMANTES DO [facility] CPT-4: 32010 05/21/2018 ([id number]) OFFICE/OUTPATIENT VISIT EST Diagnosis: Irregular menstruation, unspecified[ICD10: N92.6] Diagnosis: Diseases of lips[ICD10: K13.0] Diagnosis: 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] Keyanna TALAMANTES DO [facility] CPT-4: 12154 03/03/2018 ([id number]) NURSE/OUTPATIENT VISIT EST Diagnosis: Irregular menstruation, unspecified[ICD10: N92.6] Josefa TALAMANTES DO [facility] CPT-4: 00422 11/26/2017 ([id number]) OFFICE/OUTPATIENT VISIT EST Diagnosis: Irregular menstruation, unspecified[ICD10: N92.6] Josefa TALAMANTES DO [facility] CPT-4: 25527 08/27/2017 ([id number]) OFFICE/OUTPATIENT VISIT EST Diagnosis: Dysuria[ICD10: R30.0] Diagnosis: Irregular menstruation, unspecified[ICD10: N92.6] Josefa TALAMANTES DO [facility] CPT-4: 89967 06/06/2017 ([id number]) OFFICE/OUTPATIENT VISIT EST Diagnosis: Irregular menstruation, unspecified[ICD10: N92.6] Josefa TALAMANTES DO [facility] CPT-4: 22239 01/04/2017 ([id number]) PREV VISIT EST AGE 18-39 Diagnosis: Encounter for general adult medical examination without abnormal findings[ICD10: Z00.00] Diagnosis: Encounter for gynecological examination (general) (routine) without abnormal findings[ICD10: Z01.419] Diagnosis: Gastro-esophageal reflux disease without esophagitis[ICD10: K21.9] Diagnosis: Dysphagia, pharyngeal phase[ICD10: R13.13] Josefa TALAMANTES DO [facility] CPT-4: 81436 10/18/2016 ([id number]) OFFICE/OUTPATIENT VISIT EST Diagnosis: Irregular menstruation, unspecified[ICD10: N92.6] Josefa TALAMANTES DO [facility] CPT-4: 32887 10/12/2016 ([id number]) OFFICE/OUTPATIENT VISIT EST Diagnosis: Fever, unspecified[ICD10: R50.9] Diagnosis: Influenza due to identified novel influenza A virus with other respiratory manifestations[ICD10: J09.X2] Catrina Bran JOSEFA TALAMANTES DO [facility] CPT-4: 98664 08/08/2016 ([id number]) OFFICE/OUTPATIENT VISIT EST Diagnosis: Irregular menstruation, unspecified[ICD10: N92.6] Josefa TALAMANTES DO [facility] CPT-4: 28899 07/25/2016 ([id number]) OFFICE/OUTPATIENT VISIT EST Diagnosis: Right upper quadrant pain[ICD10: R10.11] Diagnosis: Unspecified abdominal pain[ICD10: R10.9] Josefa TALAMANTES DO [facility] CPT-4: 09094 05/15/2016 ([id number]) OFFICE/OUTPATIENT VISIT EST Diagnosis: Irregular menstruation, unspecified[ICD10: N92.6] Josefa TALAMANTES DO [facility] CPT-4: 76417 05/03/2016 ([id number]) OFFICE/OUTPATIENT VISIT EST Diagnosis: Irregular menstruation, unspecified[ICD10: N92.6] Josefa TALAMANTES DO [facility] CPT-4: 58347 02/20/2016 OFFICE/OUTPATIENT VISIT EST Diagnosis: Cutaneous abscess of buttock[ICD10: L02.31] Kitty Caldera JOSEFA TALAMANTES DO [facility] CPT-4: 16744 12/23/2015 ([id number]) OFFICE/OUTPATIENT VISIT EST Diagnosis: Irregular menstruation, unspecified[ICD10: N92.6] Josefa TALAMANTES [facility] CPT-4: 98210 11/07/2015 ([id number]) OFFICE/OUTPATIENT VISIT EST Diagnosis: Irregular menstruation, unspecified[ICD10: N92.6] Josefa TALAMANTES [facility] CPT-4: 45882 08/01/2015 ([id number]) OFFICE/OUTPATIENT VISIT EST Diagnosis: Irregular menstruation, unspecified[ICD10: N92.6] Josefa TALAMANTES [facility] CPT-4: 78646 05/11/2015 ([id number]) OFFICE/OUTPATIENT VISIT EST Diagnosis: Irregular menstruation, unspecified[ICD10: N92.6] Josefa TALAMANTES [facility] CPT-4: 13191 02/16/2015 OFFICE/OUTPATIENT VISIT EST Diagnosis: SINUSITIS, ACUTE[ICD9: 461.9] Malgorzata VanErinelaere JOSEFA TALAMANTES DO [facility] CPT-4: 42592 01/26/2015 ([id number]) OFFICE/OUTPATIENT VISIT EST Diagnosis: IRREGULAR MENSTRUATION[ICD9: 626.4] Josefa TALAMANTES [facility] CPT-4: 57451 11/29/2014 ([id number]) OFFICE/OUTPATIENT VISIT EST Diagnosis: IRREGULAR MENSTRUATION[ICD9: 626.4] Josefa Thadgaetanoflaco ALIE KATTY TALAMANTES DO [facility] CPT-4: 10564 09/09/2014 ([id number]) OFFICE/OUTPATIENT VISIT EST Diagnosis: IRREGULAR MENSTRUATION[ICD9: 626.4] Diagnosis: General counseling and advice on contraceptive management[ICD9: V25.09] Diagnosis: Anxiety and depression[ICD9: 300.4] Malgorzata TALAMANTES [facility] CPT-4: 98468 06/16/2014 OFFICE/OUTPATIENT VISIT EST Diagnosis: Right upper quadrant pain[ICD9: 789.01] Malgorzata TALAMANTES [facility] CPT-4: 73212 01/28/2014 OFFICE/OUTPATIENT VISIT EST Diagnosis: Right upper quadrant pain[ICD9: 789.01] Malgorzata TALAMANTES [facility] CPT-4: 71095 12/10/2013 OFFICE/OUTPATIENT VISIT EST Diagnosis: Anxiety and depression[ICD9: 300.4] Malgorzata VillanuevaErinjuanjo HillMaria Teresa [facility] CPT-4: 83753 10/20/2013 OFFICE/OUTPATIENT VISIT EST Diagnosis: Menorrhagia[ICD9: 626.2] Malgorzata VillanuevaErinjuanjo PINTOLINE Waylon RIVERA [facility] CPT-4: 82513 10/07/2013 OFFICE/OUTPATIENT VISIT EST Diagnosis: IRREGULAR MENSTRUATION[ICD9: 626.4] Malgorzata ALANIZ SMaria Teresa DUC [facility] CPT-4: 27677 09/15/2013 OFFICE/OUTPATIENT VISIT EST Diagnosis: HEMATURIA NOS[ICD9: 599.70] Diagnosis: Abdominal discomfort in right upper quadrant[ICD9: 789.01] Malgorzata PINTOLINE SergioMaria Teresa DUC [facility] CPT-4: 15432 06/24/2013 ([id number]) OFFICE/OUTPATIENT VISIT EST Diagnosis: ABDOMINAL PAIN[ICD9: 789.00] Diagnosis: GERD[ICD9: 530.81] Josefa Thadgaetanoflaco PINTOJOSFEA SergioMaria Teresa DUC [facility] CPT-4: 76663 03/05/2013 OFFICE/OUTPATIENT VISIT EST Diagnosis: General counseling and advice on contraceptive management[ICD9: V25.09] Diagnosis: IRREGULAR MENSTRUATION[ICD9: 626.4] Malgorzata VillanuevaErinjuanjo ALANIZ Waylon TALAMANTES DO [facility] [facility] CPT-4: 27788 02/09/2013 ([id number]) OFFICE/OUTPATIENT VISIT GISEL TALAMANTES DO [employer] CPT-4: 59409 09/08/2010 ([id number]) OFFICE/OUTPATIENT VISIT GISEL TALAMANTES DO [facility] CPT-4: 56774 07/24/2010 Plan of Care Planned Activity Notes [...] [place] [facility] order written and given to patient. [...] N34.2 07/07/2019 Appointment: Josefa Talamantes WPtel[facility] [phone] [id number] [place] [facility] 07/07/2019 Patient Education: nystatin- [employer] Coupon [id number] [email or web address] Completed 07/07/2019 Appointment: Josefa Talamantestel: [address] [place], [place] [phone] UA 06/15/2019 Visit Diagnosis Plan: Dysuria Discussion: due to recur rent pain and worsening symptoms, rocephin 1 gm given in office. will send urine off for culture and call on saturday if any changes needed. instructed to push fluids through the w eekend and go to urgent care with any worsening. ICD-9 : 788.1 ICD-10 : R30.0 06/05/2019 Appointment: Keyanna Mejía [address] [place] [address] FOLLOW UP 06/05/2019 Visit Diagnosis Plan: Left [...] ICD-10 : M25.532 03/16/2019 Appointment: Keyanna Mejía [address] [place] [address] Hospital Follow Up 03/16/2019 Appointment: Josefa Talamantes WPtel: [address] [place], [place] [phone] [place] UA 03/02/2019 Appointment: Josefa Talamantes WPtel: [address] [place], [place] [phone] [place] INJECTION 02/16/2019 Appointment: Josefa Talamantes WPtel: [address] [place], [place] [phone] [place] INJECTION 05/21/2018 Visit Diagnosis Plan: Nontoxic [...] performed in office and negative. 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 and bring back to office [...] ICD-10 : K13.0 03/03/2018 Appointment: Keyanna Mejía [address] [place] [address] [place] ACUTE ILLNESS 03/03/2018 Patient Education: Patient Medication Summary Completed 03/03/2018 Care Plan: US EXAM OF HEAD AND NECK thyroid LOIN C : 06772-9 Pending 03/03/2018 Appointment: Josefa Talamantes WPtel: [address] [place] [address] [place] CANCELED 02/27/2018 Appointment: Josefa Talamantes WPtel: [address] [place], [place] [phone] [place] INJECTION 11/26/2017 Patient Education: Patient Medication Summary Completed 11/26/2017 Appointment: Josefa Talamantes WPtel: [address] [place], [place] [phone] [place] INJECTION 08/27/2017 Patient Education: Patient Medication Summary Completed 08/27/2017 Appointment: Josefa Talamantes WPtel: [address] [place], [place] [phone] [place] INJECTION 06/06/2017 Patient Education: Patient Medication Summary Completed 06/06/2017 Appointment: Josefa Talamantes WPtel: [address] [place], [place] [phone] [place] INJECTION 01/04/2017 Patient Education: Patient Medication Summary Completed 01/04/2017 Appointment: Josefa Talamantes WPtel: [address] [place], [place] [phone] [place] 11/19 lm `sl 11/21 lm `sl NO SHOW 11/22/19 17 Patient Education: Patient Medication Summary Completed 10/22/2016 Care Plan: US EXAM OF HEAD AND NECK Thyroid Ultrasound LOIN C : 91871-8 Pending 10/22/2016 Visit Diagnosis Plan: Gastro-esophageal reflux [...] : R13.13 10/18/2016 Appointment: Josefa Talamantes WPtel: [address] [place], [place] [phone] 10/17 lm `sl Annual Well Visit 10/18/2016 Patient Education: Patient Medication Summary Completed 10/18/2016 Appointment: Josefa Talamantes WPtel: [address] [place], [place] [phone] [place] INJECTION 10/12/2016 Patient Education: Patient Medication Summary Completed 10/12/2016 Visit Diagnosis Plan: Influenza due to i dentified novel influenza A virus with other respiratory manifestations Discussion: Flu A positive Rx as above Supportive care otherwise Contagious precautions discussed Notify kids' provider of exposure for their instructions ICD-9 : 488.02 ICD-10 : J09.X2 08/08/2016 Appointment: Catrina Bran [address] [place], [place] [id number] ACUTE ILLNESS 08/08/2016 Patient Education: Patient Medication Summary Completed 08/08/2016 Appointment: Josefa Talamantes W[facility]el[facility] [phone] [facility] [place] INJE[place] 07/25/2016 Patient Education: Patient Medication Summary Completed 07/25/2016 Visit Plan: Finish abx and then recultur e 48hrs after completion Add levsin and zorvolex 05/15/2016 Appointment: Josefa Talamantes WPtel: [address] [place], [place] [id number] [place] 1/2 lm `sl 05/15 confirmed~ Hospital Follow Up 0 05/15/2016 Patient Education: Patient Medication Summary Completed 05/15/2016 Appointment: [facility] [id number] [place] 05/09 admitted into the hospital last night~ ACUTE ILLNESS 05/09/2016 Appointment: Josefa Talamantes WPtel: [address] [place], [place] [id number] [place] INJECTION 05/03/2016 Patient Education: Patient Medication Summary Completed 05/03/2016 Appointment: Josefa Talamantes WPtel: [address] [place], [place] [id number] [place] INJECTION 02/20/2016 Patient Education: Patient Medication Summary Completed 02/20/2016 Visit Plan: ERx for Bactrim and Bactroba n Called to [facility] Ultram 50mg 1 po q 4-6 hours prn pain #20 Warm moist heat to area qid Watch for s/s of worsening, go to over weekend Discussed SE of meds including s/s of SJS which would require an ER visit C&S obtained 12/23/2015 Appointment: Kitty Caldera WPtel: [address] [place], [place] [id number] [place] ACUTE ILLNESS 12/23/2015 Patient Education: Patient Medication Summary Completed 12/23/2015 Appointment: Josefa Talamantes WPtel: [phone] [facility] [place] INJECTION 11/07/2015 Patient Education: Patient Medication Summary Completed 11/07/2015 Appointment: Josefa Talamantes WPtel: [address] [place], [place] [id number] [place] INJECTION 08/01/2015 Patient Education: Patient Medication Summary Completed 08/01/2015 Appointment: Josefa Talamantes WPtel: [address] [place], [place] [id number] [place] INJECTION 05/11/2015 Patient Education: Patient Medication Summary Completed 05/11/2015 Appointment: Malgorzata Islas WPtel: [address] [place], [place] [id number] [place] PAP 04/05/2015 Appointment: Josefa Talamantes WPtel: [address] [place], [place] [id number] [place] INJECTION 02/16/2015 Patient Education: Patient Medication Summary Completed 02/16/2015 Visit Plan: Daily nasal saline rinses Fl onase nasal spray and daily Zyrtec Medrol dose pack Z-jhonathan as directed 01/26/2015 Appointment: Malgorzata Islas WPtel: [address] [place], [place] [id number] [place] ACUTE ILLNESS 01/26/2015 Patient Education: Patient Medication Summary Completed 01/26/2015 Appointment: Josefa Talamantes WPtel: [address] [place], [place] [id number] [place] INJECTION 11/29/2014 Patient Education: Patient Medication Summary Completed 11/29/2014 Appointment: Josefa Talamantes WPtel: [address] [place], [place] [phone] [place] INJECTION 09/09/2014 Patient Education: Patient Medication Summary Completed 09/09/2014 Appointment: Malgorzata Islas WPtel: [address] [place], [place] [phone] [place] FOLLOW UP 06/16/2014 Patient Education: Patient Medication Summary Completed 06/16/2014 Appointment: Malgorzata Islas WPtel: [address] [place], [place] [phone] [place] 06/02/14 appointment scheduled 06/03/14 no showed PAP 06/03/2014 Appointment: Malgorzata Islas WPtel: [address] [place] [address] [place] FOLLOW UP 01/28/2014 Patient Education: Patient Medication Summary Completed 01/28/2014 Care Plan: [place] : [address]-2 Ordered 01/28/2014 Care Plan: AMYLASE Pending 4 Appointment: Malgorzata Islas WPtel: [address] [place] [address] FOLLOW UP 12/10/2013 Patient Education: Patient Medication Summary Completed 12/10/2013 Appointment: Malgorzata Islas WPtel: [address] [place] [address] 11/11 vm 11/12 No Show FOLLOW UP 11/12/2013 Appointment: Malgorzata Islas WPtel: [address] [place] [address] FOLLOW UP 10/20/2013 Patient Education: Patient Medication Summary Completed 10/20/2013 Visit Plan: Quantitative Hcg and CBC tod ay. Transvaginal/Transabdominal sonogram stat Discussed with MANAGER EDUCATIONAL and [facility] 343 so will recheck in 1week as long as not worsening 10/07/2013 Appointment: Malgorzata Islas WPtel: [address] [place], [place] [id number] ACUTE ILLNESS 10/07/2013 Patient Education: Patient Medication Summary Completed 10/07/2013 Appointment: Malgorzata Islas WPtel: [address] [place], [place] [phone] ACUTE ILLNESS 09/15/2013 Patient Education: Patient Medication Summary Completed 09/15/2013 Appointment: Malgorzata Islas WPtel: [address] [place], [place] [phone] ACUTE ILLNESS 06/24/2013 Patient Education: Patient Medication Summary Completed 06/24/2013 Appointment: Malgorzata Islas WPtel: [address] [place] [address] [place] appt was scheduled today then patient no showed the visit ACUTE ILLNESS 05/21/2013 Visit Plan: Check CMP, CBC, UA CT scan o f abdomen Omeprazole 03/05/2013 Appointment: Josefa Talamantes WPtel: [address] [place] [address] ACUTE ILLNESS 03/05/2013 Appointment: Josefa Talamantes WPtel: [address] [place] [address] 03/02 canceled, wrong patient FOLLOW UP Patient Education: Patient Medication Summary Completed 03/05/2013 Appointment: Malgorzata Islas WPtel: [address] [place] [address] ACUTE ILLNESS 02/09/2013 Patient Education: Patient Medication Summary Completed 02/09/2013 Appointment: Justine Ortega WPtel: [address] [place] [address] ACUTE ILLNESS 09/08/2010 Patient Education: Patient Medication Summary Completed 09/08/2010 Appointment: Justine Ortega WPtel: [address] [place] [address] [place] PAP 08/08/2010 Appointment: Justine Ortega WPtel: [address] [place] [address] ACUTE ILLNESS 07/24/2010 Patient Education: Patient Medication Summary Completed 07/24/2010 Visit Plan: All warts shaved with 11-rekha de scalpel and then cryotherapy x3 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 [id number] [place] Referral Initiated Referral: Referral Initiated Instructions [...] CBC today. Transvaginal/Transabdominal sonogram stat Discussed with MANAGER EDUCATIONAL and [facility] 343 so will recheck in [...]
--- OUTSIDE RECORDS SUMMARY | 2019-12-11 22:03 | XMS REPORT | CCD ---
Author Author Brenda Talamantes D.O. Organization JOSEFA TALAMANTES DO [facility] Address [address] [place] [address] Phone Care Team Providers Care Pipe Puller Name Role Phone Josefa Talamantes D.O., PP Unavailable CCM Unavailable Summary Purpose Interface Exchange Insurance Providers Payer name Policy type / Coverage type Covered democrat ID Effective Begin Date Effective End Date [facility] [employer] [id number] Unknown Family History Family History data not found Social History Social History Element Codes Description Effective Dates Tobacco history SNOMED CT: 229526026 Unknown if ever smoked 01/12 Allergies, Adverse Reactions, Alerts Substance Reaction Codes Entered Date Inactivated Date Status * NO KNOWN FOOD ALLERGIES Unknown 03/08/2010 No Inactiv e Date Active * NO KNOWN ENVIRONMENTAL ALLERGIES Unknown 03/08/2010 N o Inactive Date Active Problems Condition Codes Effective Dates Condition Status History of renal stone ICD-9: V13.01 ICD-10: [...] 787.23 ICD-10: R13.13 10/18/2016 Active Encounter for general adult medical examination [...] Start Date Stop Date Status Fill Instructions Diflucan 100 mg tablet RxNorm: 172989 1 Tablet(s) Oral QD 07/07/2019 07/14/2019 Active Flomax 0.4 mg capsule RxNorm: 314910 1 Capsule(s) Oral QPM for kidney stone 07/07/2019 08/06/2019 Active nystatin 100,000 unit/gram topical cream RxNorm: 190879 Application Topical two times a day to periurethral area 07/07/2019 No Stop Date Active Bactrim DS 800 mg-160 mg tablet RxNorm: 472057 1 Tablet(s) Oral two times a day 06/08/2019 06/13/2019 Inactive Bactrim DS 800 mg-160 mg tablet RxNorm: 099895 1 Tablet(s) Oral two times a day 06/08/2019 06/07/2019 Inactive ibuprofen 800 mg tablet RxNorm: 004544 1 Tablet(s) Oral Q8H as needed 03/16/2019 06/05/2019 Inactive Cipro 500 mg tablet RxNorm: 693710 1 Tablet(s) Oral two times a day 03/04/2019 03/11/2019 Inactive Cipro 500 mg tablet RxNorm: 353370 1 Tablet(s) Oral two times a day 03/04/2019 03/03/2019 Inactive Macrobid 100 mg capsule RxNorm: 749286 1 Capsule(s) Oral two ti mes a day 02/16/2019 02/15/2019 Inactive Macrobid 100 mg capsule RxNorm: 401732 1 Capsule(s) Oral two ti mes a day 02/16/2019 02/23/2019 Inactive Depo-Provera 150 mg/mL intramuscular suspension RxNorm: 1000 128 Milliliter(s) Milliliter(s) 1 Milliliter(s) IM 03/03/2018 No Stop Date Active Depo-Provera 150 mg/mL intramuscular suspension RxNorm: 1000 128 Milliliter(s) 1 Milliliter(s) IM 11/25/2017 No Stop Date Active Depo-Provera 150 mg/mL intramuscular suspension RxNorm: 1000 128 Milliliter(s) 1 Milliliter(s) IM 11/25/2017 03/02/2018 Inactive Depo-Provera 150 mg/mL intramuscular suspension RxNorm: 1000 128 Milliliter(s) 1 Milliliter(s) IM 06/05/2017 11/24/2017 Inactive Pepcid 40 mg tablet RxNorm: 989279 1 Tablet(s) PO QD 10/18/201603/02 Inactive Depo-Provera 150 mg/mL intramuscular suspension RxNorm: 1000 128 Milliliter(s) 1 Milliliter(s) IM 10/10/2016 06/04/2017 Inactive Tamiflu 75 mg capsule RxNorm: 017479 1 Capsule(s) PO BID 08/08/2016 0 08/12/2016 Inactive Levsin 0.125 mg tablet RxNorm: 5282116 1 Tablet(s) PO TID for fl ank pain 05/15/2016 10/17/2016 Inactive Bactrim DS 800 mg-160 mg tablet RxNorm: 774335 1 Tablet(s) PO BID 0 12/23/2015 01/01/2016 Inactive mupirocin 2 % topical ointment RxNorm: 668992 Application TOP TID 0 12/23/2015 12/29/2015 Inactive Depo-Provera 150 mg/mL intramuscular suspension RxNorm: 1000 128 Milliliter(s) 1 Milliliter(s) IM 11/08/2015 10/09/2016 Inactive Xanax 0.25 mg tablet RxNorm: 318921 TAKE ONE-HALF TO ON E TABLET BY MOUTH NEEDED FOR ANXIETY 04/11/2015 05/10/2015 Inactive Generic For:X ANAX 0.25 MG TABLET 04/11/2015 2:54:57 PM Depo-Provera 150 mg/mL intramuscular suspension RxNorm: 1000 128 Milliliter(s) 1 Milliliter(s) IM 02/15/2015 11/07/2015 Inactive azithromycin 250 mg tablet RxNorm: 657015 2 Tablet(s) P O today, then one tablet on days 2 - 5 01/26/2015 12/22/2015 Inactive Medrol (Jhonathan) 4 mg tablets in a dose pack RxNorm: 492147 Tablet(s) P O 01/26/2015 12/22/2015 Inactive Depo-Provera 150 mg/mL intramuscular suspension RxNorm: 1000 128 1 Milliliter(s) IM 09/06/2014 02/15/2015 Inactive Xanax 0.25 mg tablet RxNorm: 251317 1/2 - 1 Tablet(s) PO as nee ded for anxiety 06/16/2014 04/12/2015 Inactive Zoloft 50 mg tablet RxNorm: 308736 1 Tablet(s) PO QD 06/16/201412/21 Inactive Flexeril [...] 2014 Inactive Xanax 0.25 mg tablet RxNorm: 457578 1/2 - 1 Tablet(s) PO as nee ded for anxiety 01/28/2014 06/15/2014 Inactive naproxen 500 mg tablet RxNorm: 630215 1 Tablet(s) PO BID 12/10/2013 0 01/08/2014 Inactive Zoloft 50 mg tablet RxNorm: 517973 1 Tablet(s) PO QD 12/10/201304/08 Inactive Xanax 0.25 mg tablet RxNorm: 950479 1/2 - 1 Tablet(s) PO as nee ded for anxiety 12/10/2013 01/27/2014 Inactive Xanax 0.25 mg tablet RxNorm: 142597 1 Tablet(s) PO Q8H 10/20/2013 Inactive Zoloft 50 mg tablet RxNorm: 656982 1/2 Tablet(s) PO x 6 days then on1 tablet daily 10/20/2013 11/18/2013 Inactive Loestrin Fe 06/01 (28) 1 mg-20 mcg tablet RxNorm: 4892524 1 Table t(s) PO QD 10/20/2013 05/03/2014 Inactive phenazopyridine 100 mg tablet RxNorm: 1223163 1 Tablet(s) PO Q8H 06/26/2013 Inactive Macrobid 100 mg capsule RxNorm: 714116 1 Capsule(s) PO BID 06/25/19 14 07/04/2013 Inactive phenazopyridine 100 mg tablet RxNorm: 0519156 1 Tablet(s) PO Q8H 06/24/2013 Inactive Macrobid 100 mg capsule RxNorm: 364188 1 Capsule(s) PO BID 07/25/19 11 08/02/2010 Inactive Apri 0.15 mg-30 mcg tablet RxNorm: 573151 1 Tablet(s) PO QD As directed. No Start Date 06/23/2013 Inactive omeprazole 40 mg capsule,delayed release RxNorm: 719106 1 Capsule(s) PO QD for stomach No Start Date 06/23/2013 Inactive naproxen 500 mg tablet RxNorm: 737262 1 Tablet(s) PO BID No Start D ate 06/15/2014 Inactive hydrocodone 10 mg-acetaminophen 325 mg tablet RxNorm: 975699 Tablet(s) PO as needed for pain No Start Date 12/22/2015 Inactive Zoloft 50 mg tablet RxNorm: 148857 1 Tablet(s) PO QD No Start Date Inactive hydrocodone 5 mg-acetaminophen 325 mg tablet RxNorm: 590140 1 Tablet(s) PO QID as needed for pain No Start Date 09/14/2013 Inactive Medication Administered No Medication Administered data Immunizations No Immunization data Results Observation Observation Code Item Item Code Result Date S ervice Location LIPASE 94395 LIPASE 14 IU/L 01/28/2014 Unknown COMPLETE BLOOD COUNT [id number] WBC 6.5 10e9/L 01/29/20 14 Unknown COMPLETE BLOOD COUNT [id number] RBC 4.54 10e12/L 2013 Unknown COMPLETE BLOOD COUNT [id number] HGB 12.1 g/dL 4 Unknown COMPLETE BLOOD COUNT [id number] HCT DET 38.0 % 4 Unknown COMPLETE BLOOD COUNT [id number] MCV 83.7 fL 4 Unknown COMPLETE BLOOD COUNT [id number] MCH 26.7 pg 4 Unknown COMPLETE BLOOD COUNT [id number] MCHC 31.8 g/dL 4 Unknown COMPLETE BLOOD COUNT [id number] PLT 218 10e9/L 01/29/20 14 Unknown COMPLETE BLOOD COUNT [id number] MPV 12.8 fL 4 Unknown COMPLETE BLOOD COUNT [id number] RACHNA % 56.5 % 4 Unknown COMPLETE BLOOD COUNT [id number] LY % 32.3 % 4 Unknown COMPLETE BLOOD COUNT [id number] MON % 8.6 % 4 Unknown COMPLETE BLOOD COUNT [id number] EOS % 2.1 % 4 Unknown COMPLETE BLOOD COUNT [id number] BASO % 0.5 % 4 Unknown COMPLETE BLOOD COUNT [id number] RDW 18.4 % 4 Unknown COMPLETE BLOOD COUNT [id number] ABS RACHNA 3.67 10e9/L 014 Unknown COMPLETE BLOOD COUNT [id number] ABS LYMPH 2.10 10e9/L 014 Unknown COMPLETE BLOOD COUNT [id number] ABS MONO 0.56 10e9/L 014 Unknown COMPLETE BLOOD COUNT [id number] ABS EOS 0.14 10e9/L 014 Unknown COMPLETE BLOOD COUNT [id number] ABS BASO 0.03 10e9/L 014 Unknown COMPLETE BLOOD COUNT [id number] RDW-SD 55.5 fL 4 Unknown COMPREHENSIVE METABOLIC 99076 AST 13 U/L 2013 Unknown COMPREHENSIVE METABOLIC 96187 ALT 7 IU/L 2013 Unknown COMPREHENSIVE METABOLIC 94328 BUN 8 MG/DL 2013 Unknown COMPREHENSIVE METABOLIC 36497 ALBUMIN 4.5 GM/DL 2013 Unknown COMPREHENSIVE METABOLIC 84174 CHLORIDE 106 MMOL/L 01/28 Unknown COMPREHENSIVE METABOLIC 38688 BILI TOT 0.4 MG/DL 2013 Unknown COMPREHENSIVE METABOLIC 01931 ALK PHOS 55 U/L 2013 Unknown COMPREHENSIVE METABOLIC 82426 SODIUM 138 MMOL/L 01/28 Unknown COMPREHENSIVE METABOLIC 59242 CREATININE 0.73 MG/DL 01/11 Unknown COMPREHENSIVE METABOLIC 59710 CALCIUM 9.9 MG/DL 2013 Unknown COMPREHENSIVE METABOLIC 89533 POTASSIUM 3.8 MMOL/L 01/28 Unknown COMPREHENSIVE METABOLIC 09545 PROT TOT 7.4 GM/DL 2013 Unknown COMPREHENSIVE METABOLIC 63467 Glucose 96 MG/DL 2013 Unknown COMPREHENSIVE METABOLIC 82378 BICARB 27 MMOL/L 2013 Unknown COMPREHENSIVE METABOLIC 94894 ANION GAP 5 MEQ/L 2013 Unknown AMYLASE 49434 AMYLASE 42 IU/L 01/28/2014 Unknown GFR CALC 3579988 GFR AA >60 ML/MIN 01/28/2014 Unknown GFR CALC 2530491 GFR NON-AA >60 ML/MIN 01/28/2014 Unknown Procedures Procedure Codes Date URINE CULTURE/ COLONY COUNT CPT-4: 26831 06/15/2019 URINALYSIS NONAUTO W/O SCOPE CPT-4: 40453 06/05/2019 CEFTRIAXONE SODIUM INJECTION CPT-4: J0696 06/05/2019 THER/PROPH/DIAG INJ SC/IM CPT-4: 11172 06/05/2019 URINE CULTURE/ COLONY COUNT CPT-4: 80097 06/05/2019 URINE CULTURE/ COLONY COUNT CPT-4: 73242 03/02/2019 THER/PROPH/DIAG INJ SC/IM CPT-4: 43522 02/16/2019 URINE CULTURE/ COLONY COUNT CPT-4: 97901 02/16/2019 URINALYSIS NONAUTO W/O SCOPE CPT-4: 69862 02/16/2019 URINE TEST CPT-4: 10542 02/16/2019 THER/PROPH/DIAG INJ SC/IM CPT-4: 66787 05/21/2018 THER/PROPH/DIAG INJ SC/IM CPT-4: 96179 11/26/2017 THER/PROPH/DIAG INJ SC/IM CPT-4: 02085 08/27/2017 THER/PROPH/DIAG INJ SC/IM CPT-4: 72351 06/06/2017 URINALYSIS NONAUTO W/O SCOPE CPT-4: 69128 06/06/2017 GC/CHLAMYDIA DNA (BD-ProbeTe) CPT-4: 71515|89861 8 URINE CULTURE/ COLONY COUNT CPT-4: 67042 06/06/2017 THER/PROPH/DIAG INJ SC/IM CPT-4: 86851 01/04/2017 SPECIMEN HANDLING OFFICE-LAB CPT-4: 11506 10/18/2016 THER/PROPH/DIAG INJ SC/IM CPT-4: 61930 10/12/2016 INFLUENZA ASSAY W/OPTIC CPT-4: 73360 08/08/2016 THER/PROPH/DIAG INJ SC/IM CPT-4: 34755 07/25/2016 THER/PROPH/DIAG INJ SC/IM CPT-4: 20725 05/03/2016 THER/PROPH/DIAG INJ SC/IM CPT-4: 57029 02/20/2016 URINE TEST CPT-4: 13953 02/20/2016 AEROBIC WOUND CULTURE & STN CPT-4: 61417 12/23/2015 THER/PROPH/DIAG INJ SC/IM CPT-4: 02824 11/07/2015 URINE TEST CPT-4: 82969 11/07/2015 THER/PROPH/DIAG INJ SC/IM CPT-4: 92926 08/01/2015 THER/PROPH/DIAG INJ SC/IM CPT-4: 06486 05/11/2015 THER/PROPH/DIAG INJ SC/IM CPT-4: 32367 02/16/2015 THER/PROPH/DIAG INJ SC/IM CPT-4: 76679 11/29/2014 THER/PROPH/DIAG INJ SC/IM CPT-4: 25693 09/09/2014 URINE TEST CPT-4: 50833 06/16/2014 THER/PROPH/DIAG INJ SC/IM CPT-4: 94051 06/16/2014 ROUTINE VENIPUNCTURE CPT-4: 62147 10/07/2013 COMPLETE CBC W/AUTO DIFF WBC CPT-4: 39106 10/07/2013 CHORIONIC GONADOTROPIN TEST CPT-4: 82036 10/07/2013 URINE TEST CPT-4: 77065 09/15/2013 URINALYSIS NONAUTO W/O SCOPE CPT-4: 44315 06/24/2013 URINE CULTURE/ COLONY COUNT CPT-4: 19289 06/24/2013 URINE TEST CPT-4: 93737 09/08/2010 URINALYSIS NONAUTO W/O SCOPE CPT-4: 19809 07/24/2010 URINE CULTURE/ COLONY COUNT CPT-4: 28793 07/24/2010 DESTRUCT PREMALG LESION (Cryosurgery) CPT-4: 10096 DESTRUCT PREMALG LES 2-14 CPT-4: 09041 03/08/2010 Vital Signs Date Vital 07/07/2019 Blood Pressure 1: 126/82 Code: 8480-6 Heart Rate 1: 100 bpm SpO2: 99% Temperature: 36.8 (C) / 98.2 (F) 06/05/2019 Blood Pressure 1: 131/82 Code: 8480-6 BMI: 26.3 Code: 80672-0 Heart Rate 1: 109 bpm Height: 5'9" Respiratory Rate: 16 bpm SpO2: 99% Tempera ture: 36.7 (C) / 98.1 (F) Weight: 178 lbs 03/16/2019 Blood Pressure 1: 132/86 Code: 8480-6 Heart Rate 1: 73 bpm SpO2: 99% Temperature: 36.6 (C) / 97.9 (F) Weight: 158 lbs 03/03/2018 Blood Pressure 1: 120/88 Code: 8480-6 BMI: 23.9 Code: 43655-1 Heart Rate 1: 81 bpm Height: 5'9" Respiratory Rate: 18 bpm SpO2: 99% Tempera ture: 36.1 (C) / 97.0 (F) Weight: 162 lbs 10/18/2016 Blood Pressure 1: 108/78 Code: 8480-6 BMI: 22.6 Code: 98667-3 Heart Rate 1: 100 bpm Height: 5'9" Respiratory Rate: 20 bpm SpO2: 98% Tempera ture: 37.1 (C) / 98.8 (F) Weight: 153 lbs 08/08/2016 Blood Pressure 1: 114/78 Code: 8480-6 Heart Rate 1: 102 bpm Respiratory Rate: 20 bpm SpO2: 98% Temperature: 36.4 (C) / 97.6 (F) We ight: 152 lbs 05/15/2016 Blood Pressure 1: 124/80 Code: 8480-6 BMI: 23.2 Code: 82170-4 Heart Rate 1: 100 bpm Height: 5'9" Respiratory Rate: 20 bpm Temperature: 37 .0 (C) / 98.6 (F) Weight: 157 lbs 12/23/2015 Blood Pressure 1: 124/78 Code: 8480-6 BMI: 23.0 Code: 84118-1 Heart Rate 1: 92 bpm Height: 5'9" Respiratory Rate: 20 bpm SpO2: 97% Tempera ture: 36.9 (C) / 98.5 (F) Weight: 156 lbs 01/26/2015 Blood Pressure 1: 11878 Code: 8480-6 BMI: 21.3 Code: 28917-0 Heart Rate 1: 100 bpm Height: 5'9" Respiratory Rate: 20 bpm SpO2: 97% Tempera ture: 36.6 (C) / 97.8 (F) Weight: 144 lbs 06/16/2014 Blood Pressure 1: 118 Code: 8480-6 BMI: 23.5 Code: 09538-8 Heart Rate 1: 78 bpm Height: 5'9" Respiratory Rate: 18 bpm Temperature: 36 .1 (C) / 97.0 (F) Weight: 159 lbs 01/28/2014 Blood Pressure 1: 124 Code: 8480-6 BMI: 23.2 Code: 97022-9 Heart Rate 1: 88 bpm Height: 5'9" Respiratory Rate: 22 bpm Temperature: 36 .1 (C) / 97.0 (F) Weight: 157 lbs 12/10/2013 Blood Pressure 1: 124/70 Code: 8480-6 BMI: 23.0 Code: 73645-0 Heart Rate 1: 82 bpm Height: 5'9" Respiratory Rate: 20 bpm Temperature: 36 .2 (C) / 97.2 (F) Weight: 156 lbs 10/20/2013 Blood Pressure 1: 118/82 Code: 8480-6 Heart Rate 1: 84 bpm Respiratory Rate: 22 bpm Temperature: 36.5 (C) / 97.7 (F) Weight: 150 lbs 10/07/2013 Blood Pressure 1: 120/80 Code: 8480-6 BMI: 22.2 Code: 00703-2 Heart Rate 1: 68 bpm Height: 5'9" Respiratory Rate: 22 bpm Temperature: 36 .2 (C) / 97.2 (F) Weight: 150 lbs 09/15/2013 Blood Pressure 1: 118/68 Code: 8480-6 BMI: 22.0 Code: 32178-2 Heart Rate 1: 78 bpm Height: 5'9" Respiratory Rate: 20 bpm Temperature: 36 .1 (C) / 97.0 (F) Weight: 149 lbs 06/24/2013 Blood Pressure 1: 112/74 Code: 8480-6 Heart Rate 1: 74 bpm Respiratory Rate: 20 bpm Temperature: 36.6 (C) / 97.9 (F) Weight: 150 lbs 03/05/2013 Blood Pressure 1: 126/88 Code: 8480-6 BMI: 23.5 Code: 83252-5 Heart Rate 1: 80 bpm Height: 5'9" Respiratory Rate: 20 bpm Temperature: 36 .6 (C) / 97.9 (F) Weight: 159 lbs 02/09/2013 Blood Pressure 1: 110/68 Code: 8480-6 BMI: 21.9 Code: 15347-6 Heart Rate 1: 74 bpm Height: 5'9" Respiratory Rate: 22 bpm Temperature: 36 .8 (C) / 98.2 (F) Weight: 148 lbs 09/08/2010 Blood Pressure 1: 124/90 Code: 8480-6 BMI: 21.4 Code: 79214-9 Height: 5'10" Temperature: 36.4 (C) / 97.6 [...] Visit Reason For Visit Effective Dates Notes painful urination 07/07/2019 painful urination 06/05/2019 wrist [...] painful Encounters Encounter Performer Location Codes Date ([id number]) OFFICE/OUTPATIENT VISIT EST Diagnosis: Urethritis[ICD10: N34.2] Diagnosis: History of renal stone[ICD10: Z87.442] Josefa MICHAUD CPT-4: 98993 07/07/2019 ([id number]) NURSE/OUTPATIENT VISIT EST Diagnosis: Urinary tract infection[ICD10: N39.0] Josefa TALAMANTES [facility] CPT-4: 48180 06/15/2019 ([id number]) OFFICE/OUTPATIENT VISIT EST Diagnosis: Dysuria[ICD10: R30.0] Diagnosis: Pelvic pain in female[ICD10: R10.2] Keyanna TALAMANTES [facility] CPT-4: 73506 06/05/2019 ([id number]) OFFICE/OUTPATIENT VISIT EST Diagnosis: Left wrist pain[ICD10: M25.532] Diagnosis: Swelling of left upper extremity[ICD10: M79.89] Keyanna TALAMANTES [facility] CPT-4: 68720 03/16/2019 ([id number]) NURSE/OUTPATIENT VISIT EST Diagnosis: Urinary tract infection[ICD10: N39.0] Josefa TALAMANTES [facility] CPT-4: 79269 03/02/2019 ([id number]) NURSE/OUTPATIENT VISIT EST Diagnosis: Irregular menstruation, unspecified[ICD10: N92.6] Diagnosis: Urinary tract infection[ICD10: N39.0] Josefa TALAMANTES [facility] CPT-4: 63625 02/16/2019 ([id number]) NURSE/OUTPATIENT VISIT EST Diagnosis: Irregular menstruation, unspecified[ICD10: N92.6] Josefa TALAMANTES [facility] CPT-4: 47653 05/21/2018 ([id number]) OFFICE/OUTPATIENT VISIT EST Diagnosis: Irregular menstruation, unspecified[ICD10: N92.6] Diagnosis: Diseases of lips[ICD10: K13.0] Diagnosis: 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] Keyanna TALAMANTES [facility] CPT-4: 16269 03/03/2018 ([id number]) NURSE/OUTPATIENT VISIT EST Diagnosis: Irregular menstruation, unspecified[ICD10: N92.6] Josefa TALAMANTES [facility] CPT-4: 38241 11/26/2017 ([id number]) OFFICE/OUTPATIENT VISIT EST Diagnosis: Irregular menstruation, unspecified[ICD10: N92.6] Josefa TALAMANTES [facility] CPT-4: 53744 08/27/2017 ([id number]) OFFICE/OUTPATIENT VISIT EST Diagnosis: Dysuria[ICD10: R30.0] Diagnosis: Irregular menstruation, unspecified[ICD10: N92.6] Josefa TALAMANTES [facility] CPT-4: 18192 06/06/2017 ([id number]) OFFICE/OUTPATIENT VISIT EST Diagnosis: Irregular menstruation, unspecified[ICD10: N92.6] Josefa TALAMANTES [facility] CPT-4: 83778 01/04/2017 ([id number]) PREV VISIT EST AGE 18-39 Diagnosis: Encounter for general adult medical examination without abnormal findings[ICD10: Z00.00] Diagnosis: Encounter for gynecological examination (general) (routine) without abnormal findings[ICD10: Z01.419] Diagnosis: Gastro-esophageal reflux disease without esophagitis[ICD10: K21.9] Diagnosis: Dysphagia, pharyngeal phase[ICD10: R13.13] Josefa TALAMANTES [employer] [facility] CPT-4: 15955 10/18/2016 ([id number]) OFFICE/OUTPATIENT VISIT EST Diagnosis: Irregular menstruation, unspecified[ICD10: N92.6] Josefa TALAMANTES [facility] CPT-4: 82068 10/12/2016 ([id number]) OFFICE/OUTPATIENT VISIT EST Diagnosis: Fever, unspecified[ICD10: R50.9] Diagnosis: Influenza due to identified novel influenza A virus with other respiratory manifestations[ICD10: J09.X2] Catrina Shant [facility] CPT-4: 73996 08/08/2016 ([id number]) OFFICE/OUTPATIENT VISIT EST Diagnosis: Irregular menstruation, unspecified[ICD10: N92.6] Josefa TALAMANTES [facility] CPT-4: 26857 07/25/2016 ([id number]) OFFICE/OUTPATIENT VISIT EST Diagnosis: Right upper quadrant pain[ICD10: R10.11] Diagnosis: Unspecified abdominal pain[ICD10: R10.9] Josefa TALAMANTES [facility] CPT-4: 89618 05/15/2016 ([id number]) OFFICE/OUTPATIENT VISIT EST Diagnosis: Irregular menstruation, unspecified[ICD10: N92.6] Josefa TALAMANTES [facility] CPT-4: 14709 05/03/2016 ([id number]) OFFICE/OUTPATIENT VISIT EST Diagnosis: Irregular menstruation, unspecified[ICD10: N92.6] Josefa TALAMANTES [facility] CPT-4: 11329 02/20/2016 OFFICE/OUTPATIENT VISIT EST Diagnosis: Cutaneous abscess of buttock[ICD10: L02.31] Kitty Caldera JOSEFA TALAMANTES [facility] CPT-4: 37212 12/23/2015 ([id number]) OFFICE/OUTPATIENT VISIT EST Diagnosis: Irregular menstruation, unspecified[ICD10: N92.6] Josefa T[facility]AMANTES [facility] CPT-4: 08743 11/07/2015 ([id number]) OFFICE/OUTPATIENT VISIT EST Diagnosis: Irregular menstruation, unspecified[ICD10: N92.6] Josefa T[facility]AMANT[facility] CPT-4: 00605 08/01/2015 ([id number]) OFFICE/OUTPATIENT VISIT EST Diagnosis: Irregular menstruation, unspecified[ICD10: N92.6] Josefa TALAMANTES [facility] CPT-4: 85729 05/11/2015 ([id number]) OFFICE/OUTPATIENT VISIT EST Diagnosis: Irregular menstruation, unspecified[ICD10: N92.6] Josefa [facility] CPT-4: 68989 02/16/2015 OFFICE/OUTPATIENT VISIT EST Diagnosis: SINUSITIS, ACUTE[ICD9: 461.9] Malgorzata Islas JOSEFA T[facility] CPT-4: 04331 01/26/2015 ([id number]) OFFICE/OUTPATIENT VISIT EST Diagnosis: IRREGULAR MENSTRUATION[ICD9: 626.4] Josefa Vinita [facility] CPT-4: 77105 11/29/2014 ([id number]) OFFICE/OUTPATIENT VISIT EST Diagnosis: IRREGULAR MENSTRUATION[ICD9: 626.4] Josefa [facility] CPT-4: 07139 09/09/2014 ([id number]) OFFICE/OUTPATIENT VISIT EST Diagnosis: IRREGULAR MENSTRUATION[ICD9: 626.4] Diagnosis: General counseling and advice on contraceptive management[ICD9: V25.09] Diagnosis: Anxiety and depression[ICD9: 300.4] Malgorzata TALAMANTES [facility] CPT-4: 48817 06/16/2014 OFFICE/OUTPATIENT VISIT EST Diagnosis: Right upper quadrant pain[ICD9: 789.01] Malgorzata [facility] CPT-4: 44996 01/28/2014 OFFICE/OUTPATIENT VISIT EST Diagnosis: Right upper quadrant pain[ICD9: 789.01] Malgorzata [facility] CPT-4: 21677 12/10/2013 OFFICE/OUTPATIENT VISIT EST Diagnosis: Anxiety and depression[ICD9: 300.4] Malgorzata [facility] CPT-4: 40755 10/20/2013 OFFICE/OUTPATIENT VISIT EST Diagnosis: Menorrhagia[ICD9: 626.2] Malgorzata [facility] CPT-4: 72386 10/07/2013 OFFICE/OUTPATIENT VISIT EST Diagnosis: IRREGULAR MENSTRUATION[ICD9: 626.4] Malgorzata [facility] CPT-4: 12230 09/15/2013 OFFICE/OUTPATIENT VISIT EST Diagnosis: HEMATURIA NOS[ICD9: 599.70] Diagnosis: Abdominal discomfort in right upper quadrant[ICD9: 789.01] Malgorzata [facility] CPT-4: 81464 06/24/2013 ([id number]) OFFICE/OUTPATIENT VISIT EST Diagnosis: ABDOMINAL PAIN[ICD9: 789.00] Diagnosis: GERD[ICD9: 530.81] Josefa [place] [facility] CPT-4: 32022 03/05/2013 OFFICE/OUTPATIENT VISIT EST Diagnosis: General counseling and advice on contraceptive management[ICD9: V25.09] Diagnosis: IRREGULAR MENSTRUATION[ICD9: 626.4] Malgorzata [facility] CPT-4: 13388 02/09/2013 ([id number]) OFFICE/OUTPATIENT VISIT EST Justine [facility] CPT-4: 83983 09/08/2010 ([id number]) OFFICE/OUTPATIENT VISIT EST Justine [facility] CPT-4: 30740 07/24/2010 Plan of Care Planned Activity Notes Codes Status Date Visit Diagnosis Plan: Urethritis Discussion: Diflucan and topical nystatin ICD-9 : 597.80 ICD-10 : N34.2 07/07/2019 Visit Diagnosis Plan: History of renal stone Discussio n: Flomax Push water If not improving within 48hrs or if worsening then will need CT scan to assess for stone ICD-9 : V13.01 ICD-10 : Z87.442 07/07/2019 Patient Education: nystatin- [employer] Coupon [id number] [email or web address] Completed 07/07/2019 Appointment: Josefa Talamantes WPtel: [id number] [facility] 06/15/2019 Visit Diagnosis Plan: Dysuria Discussion: due to recur rent pain and worsening symptoms, rocephin 1 gm given in office. will send urine off for culture and call on saturday if any changes needed. instructed to push fluids through the w eekend and go to urgent care with any worsening. ICD-9 : 788.1 ICD-10 : R30.0 06/05/2019 Appointment: Keyanna Mejía [address] [place], [place] [id number] FOLLOW UP 06/05/2019 Visit Diagnosis Plan: [...] : M25.532 03/16/2019 Appointment: Keyanna Mejía [address] [facility] Follow Up 03/16/2019 Appointment: Josefa Talamantes WPtel: [address] [place] [address] [place] UA 03/02/2019 Appointment: Josefa Talamantes WPtel: [address] [place] [address] [place] INJECTION 02/16/2019 Appointment: Josefa Talamantes WPtel: [address] [facility], [place] [id number] [place] INJECTION 05/21/2018 Visit Diagnosis Plan: Diseases of lips Discussion: ref erral to be sent to dr. galloway for evaluation of mass for possible debridement. instructed patient to apply warm compresses to lip until seen. ICD-9 : 528.5 ICD-10 : K13.0 03/03/2018 Visit Diagnosis Plan: Irregular menstruation, unspecif ied Discussion: urine performed in office and negative. 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 had pap october of 2016. not due until 2019 or patient turns 29. ICD-9 : 626.4 ICD-10 : N92.6 03/03/2018 Visit Diagnosis Plan: Nontoxic single thyroid nodule D iscussion: will obtain records of thyroid ultrasound from october of 2016 to evaluate previous scan. addendum: ultrasound showed nodules with need for updated scan in 6 months. will order thyroid ultrasound to be completed. ICD-9 : 241.0 ICD-10 : E04.1 03/03/2018 Appointment: Keyanna Mejía [address] [facility] ACUTE ILLNESS 03/03/2018 Patient Education: Patient Medication Summary Completed 03/03/2018 Care Plan: US EXAM OF HEAD AND NECK thyroid LOIN C : 33074-4 Pending 03/03/2018 Appointment: Josefa Talamantes WPtel: [address] [place], [place] [phone] [place] CANCELED 02/27/2018 Appointment: Josefa Talamantes WPtel: [address] [place], [place] [phone] [place] INJECTION 11/26/2017 Patient Education: Patient Medication Summary Completed 11/26/2017 Appointment: Josefa Talamantes WPtel: [address] [place], [place] [phone] [place] INJECTION 08/27/2017 Patient Education: Patient Medication Summary Completed 08/27/2017 Appointment: Josefa Talamantes WPtel: [address] [place], [place] [phone] [place] INJECTION 06/06/2017 Patient Education: Patient Medication Summary Completed 06/06/2017 Appointment: Josefa Talamantes WPtel: [address] [place] [phone] [place] INJECTION 01/04/2017 Patient Education: Patient Medication Summary Completed 01/04/2017 Appointment: Josefa Talamantes WPtel: [address] [place], [place] [id number] [place] 7/10 lm `sl 11/21 lm `sl NO SHOW 11/22/19 17 Patient Education: Patient Medication Summary Completed 10/22/2016 Care Plan: US EXAM OF HEAD AND NECK Thyroid Ultrasound LOIN C : 25924-0 Pending 10/22/2016 Visit Diagnosis Plan: Encounter for gyne cological examination (general) (routine) without abnormal findings Discussion: STI caution Recommend Prenat al vitamin and Calcium Recommend routine SBE Pap done On Depoprovera ICD-9 : V72.31 ICD-10 : Z01.419 10/18/2016 Visit Diagnosis Plan: Dysphagia, pharyngeal phase Disc ussion: With globus sensation ICD-9 : 787.23 ICD-10 : R13.13 10/18/2016 Visit Diagnosis Plan: Gastro-esophageal reflux disease without esophagitis Discussion: Pepcid 40mg qam Diet: GERD diet Follow Up: 1 months ICD-9 : 530.81 ICD-10 : K21.9 10/18/2016 Appointment: Josefa Talamantes WPtel: [address] [place], [place] [id number] [place] 6/7 lm ` Annual Well Visit 10/18/2016 Patient Education: Patient Medication Summary Completed 10/18/2016 Appointment: Josefa Talamantes WPtel: [address] [place], [place] [id number] [place] INJECTION 10/12/2016 Patient Education: Patient Medication Summary Completed 10/12/2016 Visit Diagnosis Plan: Influenza due to i dentified novel influenza A virus with other respiratory manifestations Discussion: Flu A positive Rx as above Supportive care otherwise Contagious precautions discussed Notify kids' provider of exposure for their instructions ICD-9 : 488.02 ICD-10 : J09.X2 08/08/2016 Appointment: Catrina Bran [address] [place], [place] [phone] ACUTE ILLNESS 08/08/2016 Patient Education: Patient Medication Summary Completed 08/08/2016 Appointment: Josefa Talamantes WPtel: [address] [place], [place] [id number] [place] INJECTION 07/25/2016 Patient Education: Patient Medication Summary Completed 07/25/2016 Visit Plan: Finish abx and then recultur e 48hrs after completion Add levsin and zorvolex 05/15/2016 Appointment: Josefa Talamantes WPtel: [address] [place], [place] [id number] [place] 1/2 lm `sl 05/15 confirmed~ Hospital Follow Up 0 05/15/2016 Patient Education: Patient Medication Summary Completed 05/15/2016 Appointment: Catrina Bran [address] [place], [place] [phone] 05/09 admitted into the hospital last night~ ACUTE ILLNESS 05/09/2016 Appointment: Josefa Talamantes WPtel: [address] [place], [place] [id number] [place] INJECTION 05/03/2016 Patient Education: Patient Medication Summary Completed 05/03/2016 Appointment: Josefa Talamantes WPtel: [address] [place], [place] [id number] [place] INJECTION 02/20/2016 Patient Education: Patient Medication Summary Completed 02/20/2016 Visit Plan: ERx for Bactrim and Bactroba n Called to [facility] Ultram 50mg 1 po q 4-6 hours prn pain #20 Warm moist heat to area qid Watch for s/s of worsening, go to over weekend Discussed SE of meds including s/s of SJS which would require an ER visit C&S obtained 12/23/2015 Appointment: Kitty Caldera WPtel: [address] [place], [place] [phone] [place] ACUTE ILLNESS 12/23/2015 Patient Education: Patient Medication Summary Completed 12/23/2015 Appointment: Josefa Talamantes WPtel: [address] [place], [place] [id number] [place] INJECTION 11/07/2015 Patient Education: Patient Medication Summary Completed 11/07/2015 Appointment: Josefa Talamantes WPtel: [address] [place] [id number] [place] INJECTION 08/01/2015 Patient Education: Patient Medication Summary Completed 08/01/2015 Appointment: Josefa Talamantes WPtel: [address] [place], [place] [id number] [place] INJECTION 05/11/2015 Patient Education: Patient Medication Summary Completed 05/11/2015 Appointment: Malgorzata Islas WPtel: [address] [place], [place] [phone] [place] PAP 04/05/2015 Appointment: Josefa Talamantes WPtel: [address] [place], [place] [phone] [place] INJECTION 02/16/2015 Patient Education: Patient Medication Summary Completed 02/16/2015 Visit Plan: Daily nasal saline rinses Fl onase nasal spray and daily Zyrtec Medrol dose pack Z-jhonathan as directed 01/26/2015 Appointment: Malgorzata Islas WPtel: [address] [place], [place] [phone] ACUTE ILLNESS 01/26/2015 Patient Education: Patient Medication Summary Completed 01/26/2015 Appointment: Josefa Talamantes WPtel: [address] [place], [place] [phone] [place] INJECTION 11/29/2014 Patient Education: Patient Medication Summary Completed 11/29/2014 Appointment: Josefa Talamantes WPtel: [address] [place] [phone] [place] INJECTION 09/09/2014 Patient Education: Patient Medication Summary Completed 09/09/2014 Appointment: Malgorzata Islas WPtel: [address] [place], [place] [phone] FOLLOW UP 06/16/2014 Patient Education: Patient Medication Summary Completed 06/16/2014 Appointment: Malgorzata Islas WPtel: [address] [place], [place] [phone] 06/02/14 appointment scheduled 06/03/14 no showed PAP 06/03/2014 Appointment: Malgorzata Islas WPtel: [address] [place], [place] [phone] FOLLOW UP 01/28/2014 Patient Education: Patient Medication Summary Completed 01/28/2014 Care Plan: COMPREH[place] : 15681-0 Ordered 01/28/2014 Care Plan: AMYLASE Pending 4 Appointment: Malgorzata Islas WPtel: [address] [place], [place] [phone] [place] FOLLOW UP 12/10/2013 Patient Education: Patient Medication Summary Completed 12/10/2013 Appointment: Malgorzata Islas WPtel: [address] [place], [place] [phone] 11/11 vm 11/12 No Show FOLLOW UP 11/12/2013 Appointment: Malgorzata Islas WPtel: [address] [place], [place] [phone] [place] FOLLOW UP 10/20/2013 Patient Education: Patient Medication Summary Completed 10/20/2013 Visit Plan: Quantitative Hcg and CBC tod ay. Transvaginal/Transabdominal sonogram stat Discussed with FOOT ROENTGENOLOGIST and [facility] 343 so will recheck in 1week as long as not worsening 10/07/2013 Appointment: Malgorzata Islas WPtel: [address] [place] [address] ACUTE ILLNESS 10/07/2013 Patient Education: Patient Medication Summary Completed 10/07/2013 Appointment: Malgorzata Islas WPtel: [address] [place] [address] ACUTE ILLNESS 09/15/2013 Patient Education: Patient Medication Summary Completed 09/15/2013 Appointment: Malgorzata Islas WPtel: [address] [place] [address] ACUTE ILLNESS 06/24/2013 Patient Education: Patient Medication Summary Completed 06/24/2013 Appointment: Malgorzata Islas WPtel: [address] [place] [address] [place] appt was scheduled today then patient no showed the visit ACUTE ILLNESS 05/21/2013 Visit Plan: Check CMP, CBC, UA CT scan o f abdomen Omeprazole 03/05/2013 Appointment: Josefa Talamantes WPtel: [address] [place], [place] [phone] ACUTE ILLNESS 03/05/2013 Appointment: Josefa Talamantes WPtel: [address] [place] [phone] 03/02 canceled, wrong patient FOLLOW UP Patient Education: Patient Medication Summary Completed 03/05/2013 Appointment: Malgorzaat Islas WPtel: [address] [place], [place] [phone] ACUTE ILLNESS 02/09/2013 Patient Education: Patient Medication Summary Completed 02/09/2013 Appointment: Justine Ortega WPtel: [address] [place], [place] [phone] ACUTE ILLNESS 09/08/2010 Patient Education: Patient Medication Summary Completed 09/08/2010 Appointment: Justine Ortega WPtel: [address] [place] [address] [place] PAP 08/08/2010 Appointment: Justine Ortega WPtel: [address] [place] [address] ACUTE ILLNESS 07/24/2010 Patient Education: Patient Medication Summary Completed 07/24/2010 Visit Plan: All warts shaved with 11-rekha de scalpel and then cryotherapy x3 Will followup with DNCB treatment 03/08/2010 Appointment: Josefa Talamantes WPtel: [address] [place] [address] ACUTE ILLNESS 03/08/2010 Patient Education: Patient Medication Summary Completed 03/08/2010 Appointment: Josefa Talamantes WPtel: [address] [place] [phone] [place] PAP 09/14/2009 Referral: Roney Galloway WPtel: [address] Referral Initiated Referral: Brian Floyd WPtel: [address] [id number] [place] Referral Initiated Referral: Referral Initiated Instructions [...] CBC today. Transvaginal/Transabdominal sonogram stat Discussed with FOOT ROENTGENOLOGIST and [facility] 343 so will recheck in [...]
--- OUTSIDE RECORDS SUMMARY | 2019-12-11 22:03 | XMS REPORT | CCD ---
Author Author Brenda Talamantes D.O. Organization JOSEFA TALAMANTES DO [facility] Address [address] [place] [address] Phone Care Team Providers Care Substance Abuse Nurse Name Role Phone Josefa Talamantes D.O., PP Unavailable CCM Unavailable Summary Purpose Interface Exchange Insurance Providers Payer name Policy type / Coverage type Covered democrat ID Effective Begin Date Effective End Date A[employer] [facility] Solidarium Insurance [id number] Unknown Family History Family History data not found Social History Social History Element Codes Description Effective Dates Tobacco history SNOMED CT: 561255831 Unknown if ever smoked 01/12 Allergies, Adverse [...] Fill Instructions Diflucan 100 mg tablet RxNorm: 516678 1 Tablet(s) Oral QD 07/07/2019 07/14/2019 Active Flomax 0.4 mg capsule RxNorm: 266655 1 Capsule(s) Oral QPM for kidney stone 07/07/2019 08/06/2019 Active nystatin 100,000 unit/gram topical cream RxNorm: 157549 Application Topical two times a day to periurethral area 07/07/2019 No Stop Date Active Bactrim DS 800 mg-160 mg tablet RxNorm: 516647 1 Tablet(s) Oral two times a day 06/08/2019 06/13/2019 Inactive Bactrim DS 800 mg-160 mg tablet RxNorm: 135902 1 Tablet(s) Oral two times a day 06/08/2019 06/07/2019 Inactive ibuprofen 800 mg tablet RxNorm: 755208 1 Tablet(s) Oral Q8H as needed 03/16/2019 06/05/2019 Inactive Cipro 500 mg tablet RxNorm: 749281 1 Tablet(s) Oral two times a day 03/04/2019 03/11/2019 Inactive Cipro 500 mg tablet RxNorm: 472657 1 Tablet(s) Oral two times a day 03/04/2019 03/03/2019 Inactive Macrobid 100 mg capsule RxNorm: 946238 1 Capsule(s) Oral two ti mes a day 02/16/2019 02/15/2019 Inactive Macrobid 100 mg capsule RxNorm: 596634 1 Capsule(s) Oral two ti mes a [...] 11/24/2017 Inactive Pepcid 40 mg tablet RxNorm: 972260 1 Tablet(s) PO QD 10/18/201603/02 Inactive Depo-Provera 150 mg/mL intramuscular suspension RxNorm: 1000 128 Milliliter(s) 1 Milliliter(s) IM 10/10/2016 06/04/2017 Inactive Tamiflu 75 mg capsule RxNorm: 878102 1 Capsule(s) PO BID 08/08/2016 0 08/12/2016 Inactive Levsin 0.125 mg tablet RxNorm: 0409329 1 Tablet(s) PO TID for fl ank pain 05/15/2016 10/17/2016 Inactive Bactrim DS 800 mg-160 mg tablet RxNorm: 335094 1 Tablet(s) PO BID 0 12/23/2015 01/01/2016 Inactive mupirocin 2 % topical ointment RxNorm: 931138 Application TOP TID 0 12/23/2015 12/29/2015 Inactive Depo-Provera 150 mg/mL intramuscular suspension RxNorm: 1000 128 Milliliter(s) 1 Milliliter(s) IM 11/08/2015 10/09/2016 Inactive Xanax 0.25 mg tablet RxNorm: 080733 TAKE ONE-HALF TO ON E TABLET BY MOUTH NEEDED FOR ANXIETY 04/11/2015 05/10/2015 Inactive Generic For:X ANAX 0.25 MG TABLET 04/11/2015 2:54:57 PM Depo-Provera 150 mg/mL intramuscular suspension RxNorm: 1000 128 Milliliter(s) 1 Milliliter(s) IM 02/15/2015 11/07/2015 Inactive azithromycin 250 mg tablet RxNorm: 227766 2 Tablet(s) P O today, then one tablet on days 2 - 5 01/26/2015 12/22/2015 Inactive Medrol (Jhonathan) 4 mg tablets in a dose pack RxNorm: 086732 Tablet(s) P O 01/26/2015 12/22/2015 Inactive Depo-Provera 150 mg/mL intramuscular suspension RxNorm: 1000 128 1 Milliliter(s) IM 09/06/2014 02/15/2015 Inactive Xanax 0.25 mg tablet RxNorm: 458173 1/2 - 1 Tablet(s) PO as nee ded for anxiety 06/16/2014 04/12/2015 Inactive Zoloft 50 mg tablet RxNorm: 224320 1 Tablet(s) PO QD 06/16/201412/21 Inactive Flexeril [...] 2014 Inactive Xanax 0.25 mg tablet RxNorm: 623528 1/2 - 1 Tablet(s) PO as nee ded for anxiety 01/28/2014 06/15/2014 Inactive naproxen 500 mg tablet RxNorm: 761899 1 Tablet(s) PO BID 12/10/2013 0 01/08/2014 Inactive Zoloft 50 mg tablet RxNorm: 950317 1 Tablet(s) PO QD 12/10/201304/08 Inactive Xanax 0.25 mg tablet RxNorm: 396735 1/2 - 1 Tablet(s) PO as nee ded for anxiety 12/10/2013 01/27/2014 Inactive Xanax 0.25 mg tablet RxNorm: 286958 1 Tablet(s) PO Q8H 10/20/2013 Inactive Zoloft 50 mg tablet RxNorm: 272502 1/2 Tablet(s) PO x 6 days then on1 tablet daily 10/20/2013 11/18/2013 Inactive Loestrin Fe 06/01 (28) 1 mg-20 mcg tablet RxNorm: 1796911 1 Table t(s) PO QD 10/20/2013 05/03/2014 Inactive phenazopyridine 100 mg tablet RxNorm: 8357165 1 Tablet(s) PO Q8H 06/26/2013 Inactive Macrobid 100 mg capsule RxNorm: 955917 1 Capsule(s) PO BID 06/25/19 14 07/04/2013 Inactive phenazopyridine 100 mg tablet RxNorm: 8827853 1 Tablet(s) PO Q8H 06/24/2013 Inactive Macrobid 100 mg capsule RxNorm: 040956 1 Capsule(s) PO BID 07/25/19 11 08/02/2010 Inactive Apri 0.15 mg-30 mcg tablet RxNorm: 728439 1 Tablet(s) PO QD As directed. No Start Date 06/23/2013 Inactive omeprazole 40 mg capsule,delayed release RxNorm: 270263 1 Capsule(s) PO QD for stomach No Start Date 06/23/2013 Inactive naproxen 500 mg tablet RxNorm: 858817 1 Tablet(s) PO BID No Start D ate 06/15/2014 Inactive hydrocodone 10 mg-acetaminophen 325 mg tablet RxNorm: 013272 Tablet(s) PO as needed for pain No Start Date 12/22/2015 Inactive Zoloft 50 mg tablet RxNorm: 526516 1 Tablet(s) PO QD No Start Date Inactive hydrocodone 5 mg-acetaminophen 325 mg tablet RxNorm: 728948 1 Tablet(s) PO QID as needed for pain No Start Date 09/14/2013 Inactive Medication Administered No Medication Administered data Immunizations No Immunization data Results Observation Observation Code Item Item Code Result Date S ervice Location LIPASE 09047 LIPASE 14 IU/L 01/28/2014 Unknown COMPLETE BLOOD COUNT 1845618 WBC 6.5 10e9/L 01/29/20 14 Unknown COMPLETE BLOOD COUNT [id number] RBC 4.54 10e12/L 2013 Unknown COMPLETE BLOOD COUNT [id number] HGB 12.1 g/dL 4 Unknown COMPLETE BLOOD COUNT [id number] HCT DET 38.0 % 4 Unknown COMPLETE BLOOD COUNT [id number] MCV 83.7 fL 4 Unknown COMPLETE BLOOD COUNT [id number] MCH 26.7 pg 4 Unknown COMPLETE BLOOD COUNT [id number] MCHC 31.8 g/dL 4 Unknown COMPLETE BLOOD COUNT [id number] PLT 218 10e9/L 01/29/20 14 Unknown COMPLETE BLOOD COUNT [id number] MPV 12.8 fL 4 Unknown COMPLETE BLOOD COUNT [id number] RACHNA % 56.5 % 4 Unknown COMPLETE BLOOD COUNT [id number] LY % 32.3 % 4 Unknown COMPLETE BLOOD COUNT [id number] MON % 8.6 % 4 Unknown COMPLETE BLOOD COUNT [id number] EOS % 2.1 % 4 Unknown COMPLETE BLOOD COUNT [id number] BASO % 0.5 % 4 Unknown COMPLETE BLOOD COUNT [id number] RDW 18.4 % 4 Unknown COMPLETE BLOOD COUNT [id number] ABS RACHNA 3.67 10e9/L 014 Unknown COMPLETE BLOOD COUNT [id number] ABS LYMPH 2.10 10e9/L 014 Unknown COMPLETE BLOOD COUNT [id number] ABS MONO 0.56 10e9/L 014 Unknown COMPLETE BLOOD COUNT [id number] ABS EOS 0.14 10e9/L 014 Unknown COMPLETE BLOOD COUNT [id number] ABS BASO 0.03 10e9/L 014 Unknown COMPLETE BLOOD COUNT [id number] RDW-SD 55.5 fL 4 Unknown COMPREHENSIVE METABOLIC 28135 AST 13 U/L 2013 Unknown COMPREHENSIVE METABOLIC 61656 ALT 7 IU/L 2013 Unknown COMPREHENSIVE METABOLIC 99951 BUN 8 MG/DL 2013 Unknown COMPREHENSIVE METABOLIC 41941 ALBUMIN 4.5 GM/DL 2013 Unknown COMPREHENSIVE METABOLIC 62448 CHLORIDE 106 MMOL/L 01/28 Unknown COMPREHENSIVE METABOLIC 75402 BILI TOT 0.4 MG/DL 2013 Unknown COMPREHENSIVE METABOLIC 30504 ALK PHOS 55 U/L 2013 Unknown COMPREHENSIVE METABOLIC 56110 SODIUM 138 MMOL/L 01/28 Unknown COMPREHENSIVE METABOLIC 32730 CREATININE 0.73 MG/DL 01/11 Unknown COMPREHENSIVE METABOLIC 59333 CALCIUM 9.9 MG/DL 2013 Unknown COMPREHENSIVE METABOLIC 31428 POTASSIUM 3.8 MMOL/L 01/28 Unknown COMPREHENSIVE METABOLIC 18368 PROT TOT 7.4 GM/DL 2013 Unknown COMPREHENSIVE METABOLIC 63050 Glucose 96 MG/DL 2013 Unknown COMPREHENSIVE METABOLIC 47953 BICARB 27 MMOL/L 2013 Unknown COMPREHENSIVE METABOLIC 06803 ANION GAP 5 MEQ/L 2013 Unknown AMYLASE 96190 AMYLASE 42 IU/L 01/28/2014 Unknown GFR CALC [id number] GFR AA >60 ML/MIN 01/28/2014 Unknown GFR CALC 8361951 GFR NON-AA >60 ML/MIN 01/28/2014 Unknown Procedures Procedure Codes Date URINE CULTURE/ COLONY COUNT CPT-4: 66290 06/15/2019 URINALYSIS NONAUTO W/O SCOPE CPT-4: 53015 06/05/2019 CEFTRIAXONE SODIUM INJECTION CPT-4: J0696 06/05/2019 THER/PROPH/DIAG INJ SC/IM CPT-4: 60046 06/05/2019 URINE CULTURE/ COLONY COUNT CPT-4: 98573 06/05/2019 URINE CULTURE/ COLONY COUNT CPT-4: 59110 03/02/2019 THER/PROPH/DIAG INJ SC/IM CPT-4: 42887 02/16/2019 URINE CULTURE/ COLONY COUNT CPT-4: 79865 02/16/2019 URINALYSIS NONAUTO W/O SCOPE CPT-4: 01825 02/16/2019 URINE TEST CPT-4: 61414 02/16/2019 THER/PROPH/DIAG INJ SC/IM CPT-4: 56050 05/21/2018 THER/PROPH/DIAG INJ SC/IM CPT-4: 50705 11/26/2017 THER/PROPH/DIAG INJ SC/IM CPT-4: 83676 08/27/2017 THER/PROPH/DIAG INJ SC/IM CPT-4: 07264 06/06/2017 URINALYSIS NONAUTO W/O SCOPE CPT-4: 91789 06/06/2017 GC/CHLAMYDIA DNA (BD-ProbeTe) CPT-4: 11397|94832 8 URINE CULTURE/ COLONY COUNT CPT-4: 07590 06/06/2017 THER/PROPH/DIAG INJ SC/IM CPT-4: 54365 01/04/2017 SPECIMEN HANDLING OFFICE-LAB CPT-4: 65156 10/18/2016 THER/PROPH/DIAG INJ SC/IM CPT-4: 97081 10/12/2016 INFLUENZA ASSAY W/OPTIC CPT-4: 65945 08/08/2016 THER/PROPH/DIAG INJ SC/IM CPT-4: 06197 07/25/2016 THER/PROPH/DIAG INJ SC/IM CPT-4: 30704 05/03/2016 THER/PROPH/DIAG INJ SC/IM CPT-4: 66775 02/20/2016 URINE TEST CPT-4: 45451 02/20/2016 AEROBIC WOUND CULTURE & STN CPT-4: 04982 12/23/2015 THER/PROPH/DIAG INJ SC/IM CPT-4: 00320 11/07/2015 URINE TEST CPT-4: 16459 11/07/2015 THER/PROPH/DIAG INJ SC/IM CPT-4: 35558 08/01/2015 THER/PROPH/DIAG INJ SC/IM CPT-4: 10448 05/11/2015 THER/PROPH/DIAG INJ SC/IM CPT-4: 25883 02/16/2015 THER/PROPH/DIAG INJ SC/IM CPT-4: 74678 11/29/2014 THER/PROPH/DIAG INJ SC/IM CPT-4: 96083 09/09/2014 URINE TEST CPT-4: 42490 06/16/2014 THER/PROPH/DIAG INJ SC/IM CPT-4: 75482 06/16/2014 ROUTINE VENIPUNCTURE CPT-4: 12548 10/07/2013 COMPLETE CBC W/AUTO DIFF WBC CPT-4: 35838 10/07/2013 CHORIONIC GONADOTROPIN TEST CPT-4: 16930 10/07/2013 URINE TEST CPT-4: 32082 09/15/2013 URINALYSIS NONAUTO W/O SCOPE CPT-4: 04253 06/24/2013 URINE CULTURE/ COLONY COUNT CPT-4: 23520 06/24/2013 URINE TEST CPT-4: 48200 09/08/2010 URINALYSIS NONAUTO W/O SCOPE CPT-4: 50943 07/24/2010 URINE CULTURE/ COLONY COUNT CPT-4: 54395 07/24/2010 DESTRUCT PREMALG LESION (Cryosurgery) CPT-4: 92231 DESTRUCT PREMALG LES 2-14 CPT-4: 97321 03/08/2010 Vital Signs Date Vital 07/07/2019 Blood Pressure 1: 126/82 Code: 8480-6 Heart Rate 1: 100 bpm SpO2: 99% Temperature: 36.8 (C) / 98.2 (F) 06/05/2019 Blood Pressure 1: 131/82 Code: 8480-6 BMI: 26.3 Code: 56935-4 Heart Rate 1: 109 bpm Height: 5'9" Respiratory Rate: 16 bpm SpO2: 99% Tempera ture: 36.7 (C) / 98.1 (F) Weight: 178 lbs 03/16/2019 Blood Pressure 1: 132/86 Code: 8480-6 Heart Rate 1: 73 bpm SpO2: 99% Temperature: 36.6 (C) / 97.9 (F) Weight: 158 lbs 03/03/2018 Blood Pressure 1: 120/88 Code: 8480-6 BMI: 23.9 Code: 59565-5 Heart Rate 1: 81 bpm Height: 5'9" Respiratory Rate: 18 bpm SpO2: 99% Tempera ture: 36.1 (C) / 97.0 (F) Weight: 162 lbs 10/18/2016 Blood Pressure 1: 108/78 Code: 8480-6 BMI: 22.6 Code: 61432-6 Heart Rate 1: 100 bpm Height: 5'9" Respiratory Rate: 20 bpm SpO2: 98% Tempera ture: 37.1 (C) / 98.8 (F) Weight: 153 lbs 08/08/2016 Blood Pressure 1: 114/78 Code: 8480-6 Heart Rate 1: 102 bpm Respiratory Rate: 20 bpm SpO2: 98% Temperature: 36.4 (C) / 97.6 (F) We ight: 152 lbs 05/15/2016 Blood Pressure 1: 124/80 Code: 8480-6 BMI: 23.2 Code: 40662-4 Heart Rate 1: 100 bpm Height: 5'9" Respiratory Rate: 20 bpm Temperature: 37 .0 (C) / 98.6 (F) Weight: 157 lbs 12/23/2015 Blood Pressure 1: 124/78 Code: 8480-6 BMI: 23.0 Code: 97464-1 Heart Rate 1: 92 bpm Height: 5'9" Respiratory Rate: 20 bpm SpO2: 97% Tempera ture: 36.9 (C) / 98.5 (F) Weight: 156 lbs 01/26/2015 Blood Pressure 1: 11878 Code: 8480-6 BMI: 21.3 Code: 18239-6 Heart Rate 1: 100 bpm Height: 5'9" Respiratory Rate: 20 bpm SpO2: 97% Tempera ture: 36.6 (C) / 97.8 (F) Weight: 144 lbs 06/16/2014 Blood Pressure 1: 118 Code: 8480-6 BMI: 23.5 Code: 76462-6 Heart Rate 1: 78 bpm Height: 5'9" Respiratory Rate: 18 bpm Temperature: 36 .1 (C) / 97.0 (F) Weight: 159 lbs 01/28/2014 Blood Pressure 1: 124 Code: 8480-6 BMI: 23.2 Code: 85182-4 Heart Rate 1: 88 bpm Height: 5'9" Respiratory Rate: 22 bpm Temperature: 36 .1 (C) / 97.0 (F) Weight: 157 lbs 12/10/2013 Blood Pressure 1: 124/70 Code: 8480-6 BMI: 23.0 Code: 07686-7 Heart Rate 1: 82 bpm Height: 5'9" Respiratory Rate: 20 bpm Temperature: 36 .2 (C) / 97.2 (F) Weight: 156 lbs 10/20/2013 Blood Pressure 1: 118/82 Code: 8480-6 Heart Rate 1: 84 bpm Respiratory Rate: 22 bpm Temperature: 36.5 (C) / 97.7 (F) Weight: 150 lbs 10/07/2013 Blood Pressure 1: 120/80 Code: 8480-6 BMI: 22.2 Code: 50080-8 Heart Rate 1: 68 bpm Height: 5'9" Respiratory Rate: 22 bpm Temperature: 36 .2 (C) / 97.2 (F) Weight: 150 lbs 09/15/2013 Blood Pressure 1: 118/68 Code: 8480-6 BMI: 22.0 Code: 56132-0 Heart Rate 1: 78 bpm Height: 5'9" Respiratory Rate: 20 bpm Temperature: 36 .1 (C) / 97.0 (F) Weight: 149 lbs 06/24/2013 Blood Pressure 1: 112/74 Code: 8480-6 Heart Rate 1: 74 bpm Respiratory Rate: 20 bpm Temperature: 36.6 (C) / 97.9 (F) Weight: 150 lbs 03/05/2013 Blood Pressure 1: 126/88 Code: 8480-6 BMI: 23.5 Code: 56400-6 Heart Rate 1: 80 bpm Height: 5'9" Respiratory Rate: 20 bpm Temperature: 36 .6 (C) / 97.9 (F) Weight: 159 lbs 02/09/2013 Blood Pressure 1: 110/68 Code: 8480-6 BMI: 21.9 Code: 89857-7 Heart Rate 1: 74 bpm Height: 5'9" Respiratory Rate: 22 bpm Temperature: 36 .8 (C) / 98.2 (F) Weight: 148 lbs 09/08/2010 Blood Pressure 1: 124/90 Code: 8480-6 BMI: 21.4 Code: 59698-3 Height: 5'10" Temperature: 36.4 (C) / 97.6 [...] painful Encounters Encounter Performer Location Codes Date ([id number]) OFFICE/OUTPATIENT VISIT EST Diagnosis: Urethritis[ICD10: N34.2] Diagnosis: History of renal stone[ICD10: Z87.442] Josefa MICHAUD CPT-4: 80509 07/07/2019 ([id number]) NURSE/OUTPATIENT VISIT EST Diagnosis: Urinary tract infection[ICD10: N39.0] Josefa TALAMANTES DO [facility] CPT-4: 43715 06/15/2019 ([id number]) OFFICE/OUTPATIENT VISIT EST Diagnosis: Dysuria[ICD10: R30.0] Diagnosis: Pelvic pain in female[ICD10: R10.2] Keyanna TALAMANTES DO [facility] CPT-4: 78186 06/05/2019 ([id number]) OFFICE/OUTPATIENT VISIT EST Diagnosis: Left wrist pain[ICD10: M25.532] Diagnosis: Swelling of left upper extremity[ICD10: M79.89] Keyanna TALAMANTES DO [facility] CPT-4: 06414 03/16/2019 ([id number]) NURSE/OUTPATIENT VISIT EST Diagnosis: Urinary tract infection[ICD10: N39.0] Josefa TALAMANTES DO [facility] CPT-4: 14275 03/02/2019 ([id number]) NURSE/OUTPATIENT VISIT EST Diagnosis: Irregular menstruation, unspecified[ICD10: N92.6] Diagnosis: Urinary tract infection[ICD10: N39.0] Josefa TALAMANTES DO [facility] CPT-4: 70042 02/16/2019 ([id number]) NURSE/OUTPATIENT VISIT EST Diagnosis: Irregular menstruation, unspecified[ICD10: N92.6] Josefa TALAMANTES DO [facility] CPT-4: 99610 05/21/2018 ([id number]) OFFICE/OUTPATIENT VISIT EST Diagnosis: Irregular menstruation, unspecified[ICD10: N92.6] Diagnosis: Diseases of lips[ICD10: K13.0] Diagnosis: 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] Keyanna TALAMANTES DO [facility] CPT-4: 16070 03/03/2018 ([id number]) NURSE/OUTPATIENT VISIT EST Diagnosis: Irregular menstruation, unspecified[ICD10: N92.6] Josefa TALAMANTES DO [facility] CPT-4: 45967 11/26/2017 ([id number]) OFFICE/OUTPATIENT VISIT EST Diagnosis: Irregular menstruation, unspecified[ICD10: N92.6] Josefa TALAMANTES DO [facility] CPT-4: 18613 08/27/2017 ([id number]) OFFICE/OUTPATIENT VISIT EST Diagnosis: Dysuria[ICD10: R30.0] Diagnosis: Irregular menstruation, unspecified[ICD10: N92.6] Josefa TALAMANTES DO [facility] CPT-4: 72524 06/06/2017 ([id number]) OFFICE/OUTPATIENT VISIT EST Diagnosis: Irregular menstruation, unspecified[ICD10: N92.6] Josefa TALAMANTES DO [facility] CPT-4: 33673 01/04/2017 ([id number]) PREV VISIT EST AGE 18-39 Diagnosis: Encounter for general adult medical examination without abnormal findings[ICD10: Z00.00] Diagnosis: Encounter for gynecological examination (general) (routine) without abnormal findings[ICD10: Z01.419] Diagnosis: Gastro-esophageal reflux disease without esophagitis[ICD10: K21.9] Diagnosis: Dysphagia, pharyngeal phase[ICD10: R13.13] Josefa TALAMANTES [place] CPT-4: 96468 10/18/2016 ([id number]) OFFICE/OUTPATIENT VISIT EST Diagnosis: Irregular menstruation, unspecified[ICD10: N92.6] Josefa TALAMANTES DO [facility] CPT-4: 38216 10/12/2016 ([id number]) OFFICE/OUTPATIENT VISIT EST Diagnosis: Fever, unspecified[ICD10: R50.9] Diagnosis: Influenza due to identified novel influenza A virus with other respiratory manifestations[ICD10: J09.X2] Catrina Shant TALAMANTES DO [facility] CPT-4: 66463 08/08/2016 ([id number]) OFFICE/OUTPATIENT VISIT EST Diagnosis: Irregular menstruation, unspecified[ICD10: N92.6] Josefa TALAMANTES DO [facility] CPT-4: 47057 07/25/2016 ([id number]) OFFICE/OUTPATIENT VISIT EST Diagnosis: Right upper quadrant pain[ICD10: R10.11] Diagnosis: Unspecified abdominal pain[ICD10: R10.9] Josefa TALAMANTES DO [facility] CPT-4: 21888 05/15/2016 ([id number]) OFFICE/OUTPATIENT VISIT EST Diagnosis: Irregular menstruation, unspecified[ICD10: N92.6] Josefa TALAMANTES DO [facility] CPT-4: 57884 05/03/2016 ([id number]) OFFICE/OUTPATIENT VISIT EST Diagnosis: Irregular menstruation, unspecified[ICD10: N92.6] Josefa TALAMANTES DO [facility] CPT-4: 05253 02/20/2016 OFFICE/OUTPATIENT VISIT EST Diagnosis: Cutaneous abscess of buttock[ICD10: L02.31] Kitty Caldera JOSEFA TALAMANTES DO [facility] CPT-4: 51611 12/23/2015 ([id number]) OFFICE/OUTPATIENT VISIT EST Diagnosis: Irregular menstruation, unspecified[ICD10: N92.6] Josefa TALAMANTES DO [facility] CPT-4: 36532 11/07/2015 ([id number]) OFFICE/OUTPATIENT VISIT EST Diagnosis: Irregular menstruation, unspecified[ICD10: N92.6] Josefa TALAMANTES DO [facility] CPT-4: 23441 08/01/2015 ([id number]) OFFICE/OUTPATIENT VISIT EST Diagnosis: Irregular menstruation, unspecified[ICD10: N92.6] Josefa TALAMANTES DO [facility] CPT-4: 63445 05/11/2015 ([id number]) OFFICE/OUTPATIENT VISIT EST Diagnosis: Irregular menstruation, unspecified[ICD10: N92.6] Josefa TALAMANTES DO [facility] CPT-4: 78465 02/16/2015 OFFICE/OUTPATIENT VISIT EST Diagnosis: SINUSITIS, ACUTE[ICD9: 461.9] Malgorzata Islas JOSEFA TALAMANTES DO [facility] CPT-4: 85742 01/26/2015 ([id number]) OFFICE/OUTPATIENT VISIT EST Diagnosis: IRREGULAR MENSTRUATION[ICD9: 626.4] Josefa Vinita TALAMANTES DO [facility] CPT-4: 18429 11/29/2014 ([id number]) OFFICE/OUTPATIENT VISIT EST Diagnosis: IRREGULAR MENSTRUATION[ICD9: 626.4] Josefa TALAMANTES [facility] CPT-4: 45456 09/09/2014 ([id number]) OFFICE/OUTPATIENT VISIT EST Diagnosis: IRREGULAR MENSTRUATION[ICD9: 626.4] Diagnosis: General counseling and advice on contraceptive management[ICD9: V25.09] Diagnosis: Anxiety and depression[ICD9: 300.4] Malgorzata TALAMANTES DO [facility] CPT-4: 53096 06/16/2014 OFFICE/OUTPATIENT VISIT EST Diagnosis: Right upper quadrant pain[ICD9: 789.01] Malgorzata TALAMANTES [facility] CPT-4: 93903 01/28/2014 OFFICE/OUTPATIENT VISIT EST Diagnosis: Right upper quadrant pain[ICD9: 789.01] Malgorzata TALAMANTES [facility] CPT-4: 94069 12/10/2013 OFFICE/OUTPATIENT VISIT EST Diagnosis: Anxiety and depression[ICD9: 300.4] Malgorzata TALAMANTES [facility] CPT-4: 25379 10/20/2013 OFFICE/OUTPATIENT VISIT EST Diagnosis: Menorrhagia[ICD9: 626.2] Malgorzata RIVERA [facility] CPT-4: 06865 10/07/2013 OFFICE/OUTPATIENT VISIT EST Diagnosis: IRREGULAR MENSTRUATION[ICD9: 626.4] Malgorzata TALAMANTES [facility] CPT-4: 56466 09/15/2013 OFFICE/OUTPATIENT VISIT EST Diagnosis: HEMATURIA NOS[ICD9: 599.70] Diagnosis: Abdominal discomfort in right upper quadrant[ICD9: 789.01] Malgorzata TALAMANTES [facility] CPT-4: 57728 06/24/2013 ([id number]) OFFICE/OUTPATIENT VISIT EST Diagnosis: ABDOMINAL PAIN[ICD9: 789.00] Diagnosis: GERD[ICD9: 530.81] Josefa Vinita TALAMANTES [facility] CPT-4: 20338 03/05/2013 OFFICE/OUTPATIENT VISIT EST Diagnosis: General counseling and advice on contraceptive management[ICD9: V25.09] Diagnosis: IRREGULAR MENSTRUATION[ICD9: 626.4] Malgorzata TALAMANTES DO [facility] CPT-4: 08103 02/09/2013 ([id number]) OFFICE/OUTPATIENT VISIT EST Justine TALAMANTES DO [facility] CPT-4: 83706 09/08/2010 ([id number]) OFFICE/OUTPATIENT VISIT EST Justine TALAMANTES DO [facility] CPT-4: 94731 07/24/2010 Plan of Care Planned Activity Notes [...] Z87.442 07/07/2019 Patient Education: nystatin- [employer] Coupon [id number] [email or web address] Completed 07/07/2019 Appointment: Josefa Talamantes WPtel: [facility] [facility] 06/15/2019 Visit Diagnosis Plan: Dysuria Discussion: due to recur rent pain and worsening symptoms, rocephin 1 gm given in office. will send urine off for culture and call on saturday if any changes needed. instructed to push fluids through the w eekend and go to urgent care with any worsening. ICD-9 : 788.1 ICD-10 : R30.0 06/05/2019 Appointment: Keyanna Mejía [address] [place], [place] [id number] FOLLOW UP 06/05/2019 Visit Diagnosis [...] : M25.532 03/16/2019 Appointment: Keyanna Mejía [address] Hospital Follow Up 03/16/2019 Appointment: Josefa Talamantes WPtel: [address] [place] [address] [place] UA 03/02/2019 Appointment: Josefa Talamantes WPtel: [address] [place] [address] [place] INJECTION 02/16/2019 Appointment: Josefa Talamantes WPtel: [address] [place], [place] [phone] [place] INJECTION 05/21/2018 Visit Diagnosis Plan: Diseases [...] E04.1 03/03/2018 Appointment: Keyanna Mejía [address] [id number] ACUTE ILLNESS 03/03/2018 Patient Education: Patient Medication Summary Completed 03/03/2018 Care Plan: US EXAM OF HEAD AND NECK thyroid LOIN C : 91888-8 Pending 03/03/2018 Appointment: Josefa Talamantes WPtel: [address] [place], [place] [phone] [place] CANCELED 02/27/2018 Appointment: Josefa Talamantes WPtel: [address] [place], [place] [phone] [place] INJECTION 11/26/2017 Patient Education: Patient Medication Summary Completed 11/26/2017 Appointment: Josefa Talamantes WPtel: [phone] [place], [place] [phone] [place] INJECTION 08/27/2017 Patient Education: Patient Medication Summary Completed 08/27/2017 Appointment: Josefa Talamantes WPtel: [address] [place], [place] [phone] [place] INJECTION 06/06/2017 Patient Education: Patient Medication Summary Completed 06/06/2017 Appointment: Josefa Talamantes WPtel: [address] [place], [place] [phone] [place] INJECTION 01/04/2017 Patient Education: Patient Medication Summary Completed 01/04/2017 Appointment: Josefa Talamantes WPtel: [address] [place], [place] [id number] [place] 7/10 lm `sl 11/21 lm `sl NO SHOW 11/22/19 17 Patient Education: Patient Medication Summary Completed 10/22/2016 Care Plan: US EXAM OF HEAD AND NECK Thyroid Ultrasound LOIN C : 08877-8 Pending 10/22/2016 Visit Diagnosis Plan: Encounter for [...] : K21.9 10/18/2016 Appointment: Josefa Talamantes WPtel: [address] [place], [place] [id number] [place] 6/7 lm ` Annual Well Visit 10/18/2016 Patient Education: Patient Medication Summary Completed 10/18/2016 Appointment: Josefa Talamantes WPtel: [address] [place], [place] [id number] [place] INJECTION 10/12/2016 Patient Education: Patient Medication Summary Completed 10/12/2016 Visit Diagnosis Plan: Influenza due to i dentified novel influenza A virus with other respiratory manifestations Discussion: Flu A positive Rx as above Supportive care otherwise Contagious precautions discussed Notify kids' provider of exposure for their instructions ICD-9 : 488.02 ICD-10 : J09.X2 08/08/2016 Appointment: Catrina Bran [address] [place], [place] [phone] 08/08/2016 Patient Education: Patient Medication Summary Completed 08/08/2016 Appointment: Josefa Talamantes WPtel: [address] [place], [place] [id number] [place] INJECTION 07/25/2016 Patient Education: Patient Medication Summary Completed 07/25/2016 Visit Plan: Finish abx and then recultur e 48hrs after completion Add levsin and zorvolex 05/15/2016 Appointment: Josefa Talamantes WPtel: [address] [place], [place] [id number] [place] 1/2 lm `sl 05/15 confirmed~ Hospital Follow Up 0 05/15/2016 Patient Education: Patient Medication Summary Completed 05/15/2016 Appointment: Catrina Bran [address] [place], [place] [phone] 05/09 admitted into the hospital last night~ ACUTE ILLNESS 05/09/2016 Appointment: Josefa Talamantes WPtel: [address] [place], [place] [id number] [place] INJECTION 05/03/2016 Patient Education: Patient Medication Summary Completed 05/03/2016 Appointment: Josefa Talamantes WPtel: [address] [place], [place] [id number] [place] INJECTION 02/20/2016 Patient Education: Patient Medication [...] C&S obtained 12/23/2015 Appointment: Kitty Caldera WPtel: [address] [place], [place] [phone] [place] ACUTE ILLNESS 12/23/2015 Patient Education: Patient Medication Summary Completed 12/23/2015 Appointment: Josefa Talamantes WPtel: [address] [place], [place] [id number] [place] INJECTION 11/07/2015 Patient Education: Patient Medication Summary Completed 11/07/2015 Appointment: Josefa Talamantes WPtel: [address] [place], [place] [id number] [place] INJECTION 08/01/2015 Patient Education: Patient Medication Summary Completed 08/01/2015 Appointment: Josefa Talamantes WPtel: [address] [place], [place] [id number] [place] INJECTION 05/11/2015 Patient Education: Patient Medication Summary Completed 05/11/2015 Appointment: Malgorzata Islas WPtel: [address] [place], [place] [phone] [place] PAP 04/05/2015 Appointment: Josefa Talamantes WPtel: [address] [place], [place] [id number] [place] INJECTION 02/16/2015 Patient Education: Patient Medication Summary Completed 02/16/2015 Visit Plan: Daily nasal saline rinses Fl onase nasal spray and daily Zyrtec Medrol dose pack Z-jhonathan as directed 01/26/2015 Appointment: Malgorzata Islas WPtel: [address] [place], [place] [phone] ACUTE ILLNESS 01/26/2015 Patient Education: Patient Medication Summary Completed 01/26/2015 Appointment: Josefa Talamantes WPtel: [address] [place], [place] [phone] [place] INJECTION 11/29/2014 Patient Education: Patient Medication Summary Completed 11/29/2014 Appointment: Josefa Talamantes WPtel: [address] [place], [place] [phone] [place] INJECTION 09/09/2014 Patient Education: Patient Medication Summary Completed 09/09/2014 Appointment: Malgorzata Islas WPtel: [address] [place], [place] [phone] FOLLOW UP 06/16/2014 Patient Education: Patient Medication Summary Completed 06/16/2014 Appointment: Malgorzata Islas WPtel: [address] [place] [phone] 06/02/14 appointment scheduled 06/03/14 no showed PAP 06/03/2014 Appointment: Malgorzata Islas WPtel: [address] [place] [phone] FOLLOW UP 01/28/2014 Patient Education: Patient Medication Summary Completed 01/28/2014 Care Plan: COMPREH[place] : [address]-3 Ordered 01/28/2014 Care Plan: AMYLASE Pending 4 Appointment: Malgorzata Islas WPtel: [address] [place], [place] [phone] [place] FOLLOW UP 12/10/2013 Patient Education: Patient Medication Summary Completed 12/10/2013 Appointment: Malgorzata Islas WPtel: [address] [place] [phone] 11/11 vm 11/12 No Show FOLLOW UP 11/12/2013 Appointment: Malgorzata Islas WPtel: [address] [place], [place] [phone] [place] FOLLOW UP 10/20/2013 Patient Education: Patient Medication Summary Completed 10/20/2013 Visit Plan: Quantitative Hcg and CBC tod ay. Transvaginal/Transabdominal sonogram stat Discussed with PIN TICKET MACHINE OPERATOR and [facility] 343 so will recheck in 1week as long as not worsening 10/07/2013 Appointment: Malgorzata Islas WPtel: [address] [place] [address] ACUTE ILLNESS 10/07/2013 Patient Education: Patient Medication Summary Completed 10/07/2013 Appointment: Malgorzata Islas WPtel: [address] [place] [address] ACUTE ILLNESS 09/15/2013 Patient Education: Patient Medication Summary Completed 09/15/2013 Appointment: Malgorzata Islas WPtel: [address] [place] [address] ACUTE ILLNESS 06/24/2013 Patient Education: Patient Medication Summary Completed 06/24/2013 Appointment: Malgorzata Islas WPtel: [address] [place] [address] [place] appt was scheduled today then patient no showed the visit ACUTE ILLNESS 05/21/2013 Visit Plan: Check CMP, CBC, UA CT scan o f abdomen Omeprazole 03/05/2013 Appointment: Josefa Talamantes WPtel: [address] [place], [place] [phone] ACUTE ILLNESS 03/05/2013 Appointment: Josefa Talamantes WPtel: [address] [place], [place] [phone] 03/02 canceled, wrong patient FOLLOW UP Patient Education: Patient Medication Summary Completed 03/05/2013 Appointment: Malgorzata Islas WPtel: [address] [place], [place] [phone] ACUTE ILLNESS 02/09/2013 Patient Education: Patient Medication Summary Completed 02/09/2013 Appointment: Justine Ortega WPtel: [address] [place], [place] [phone] ACUTE ILLNESS 09/08/2010 Patient Education: Patient Medication Summary Completed 09/08/2010 Appointment: Justine Ortega WPtel: [address] [place] [address] [place] PAP 08/08/2010 Appointment: Justine Ortega WPtel: [address] [place] [address] ACUTE ILLNESS 07/24/2010 Patient Education: Patient Medication Summary Completed 07/24/2010 Visit Plan: All warts shaved with 11-rekha de scalpel and then cryotherapy x3 Will followup with DNCB treatment 03/08/2010 Appointment: Josefa Talamantes WPtel: [address] [place] [address] ACUTE ILLNESS 03/08/2010 Patient Education: Patient Medication Summary Completed 03/08/2010 Appointment: Josefa Talamantes WPtel: [address] [place], [place] [phone] [place] PAP 09/14/2009 Referral: Roney Galloway WPtel: [address] Referral Initiated Referral: Brian Floyd WPtel: [address] [id number] [place] Referral Initiated Referral: Referral Initiated Instructions [...] CBC today. Transvaginal/Transabdominal sonogram stat Discussed with PIN TICKET MACHINE OPERATOR and [facility] 343 so will recheck in [...]
--- OUTSIDE RECORDS SUMMARY | 2019-12-11 22:03 | XMS REPORT | CCD ---
Author Author Brenda Talamantes D.O. Organization [facility] Address [address] [place] [address] Phone Care Team Providers Care Manager Float Name Role Phone Josefa Talamantes D.O., PP Unavailable CCM Unavailable Summary Purpose Interface Exchange Insurance Providers Payer name Policy type / Coverage type Covered democrat ID Effective Begin Date Effective End Date [employer] [facility] [employer] Insurance [id number] Unknown Family History Family History data not found Social History Social History Element Codes Description Effective Dates Tobacco history SNOMED CT: 967843222 Unknown if ever smoked 01/12 Allergies, Adverse [...] Fill Instructions Diflucan 100 mg tablet RxNorm: 674728 1 Tablet(s) Oral QD 07/07/2019 07/14/2019 Active Flomax 0.4 mg capsule RxNorm: 201728 1 Capsule(s) Oral QPM for kidney stone 07/07/2019 08/06/2019 Active nystatin 100,000 unit/gram topical cream RxNorm: 207308 Application Topical two times a day to periurethral area 07/07/2019 No Stop Date Active Bactrim DS 800 mg-160 mg tablet RxNorm: 440014 1 Tablet(s) Oral two times a day 06/08/2019 06/13/2019 Inactive Bactrim DS 800 mg-160 mg tablet RxNorm: 529572 1 Tablet(s) Oral two times a day 06/08/2019 06/07/2019 Inactive ibuprofen 800 mg tablet RxNorm: 672344 1 Tablet(s) Oral Q8H as needed 03/16/2019 06/05/2019 Inactive Cipro 500 mg tablet RxNorm: 828448 1 Tablet(s) Oral two times a day 03/04/2019 03/11/2019 Inactive Cipro 500 mg tablet RxNorm: 791101 1 Tablet(s) Oral two times a day 03/04/2019 03/03/2019 Inactive Macrobid 100 mg capsule RxNorm: 791444 1 Capsule(s) Oral two ti mes a day 02/16/2019 02/15/2019 Inactive Macrobid 100 mg capsule RxNorm: 597447 1 Capsule(s) Oral two ti mes a [...] 11/24/2017 Inactive Pepcid 40 mg tablet RxNorm: 799631 1 Tablet(s) PO QD 10/18/201603/02 Inactive Depo-Provera 150 mg/mL intramuscular suspension RxNorm: 1000 128 Milliliter(s) 1 Milliliter(s) IM 10/10/2016 06/04/2017 Inactive Tamiflu 75 mg capsule RxNorm: 699655 1 Capsule(s) PO BID 08/08/2016 0 08/12/2016 Inactive Levsin 0.125 mg tablet RxNorm: 3414127 1 Tablet(s) PO TID for fl ank pain 05/15/2016 10/17/2016 Inactive Bactrim DS 800 mg-160 mg tablet RxNorm: 490395 1 Tablet(s) PO BID 0 12/23/2015 01/01/2016 Inactive mupirocin 2 % topical ointment RxNorm: 031291 Application TOP TID 0 12/23/2015 12/29/2015 Inactive Depo-Provera 150 mg/mL intramuscular suspension RxNorm: 1000 128 Milliliter(s) 1 Milliliter(s) IM 11/08/2015 10/09/2016 Inactive Xanax 0.25 mg tablet RxNorm: 191480 TAKE ONE-HALF TO ON E TABLET BY MOUTH NEEDED FOR ANXIETY 04/11/2015 05/10/2015 Inactive Generic For:X ANAX 0.25 MG TABLET 04/11/2015 2:54:57 PM Depo-Provera 150 mg/mL intramuscular suspension RxNorm: 1000 128 Milliliter(s) 1 Milliliter(s) IM 02/15/2015 11/07/2015 Inactive azithromycin 250 mg tablet RxNorm: 668386 2 Tablet(s) P O today, then one tablet on days 2 - 5 01/26/2015 12/22/2015 Inactive Medrol (Jhonathan) 4 mg tablets in a dose pack RxNorm: 471440 Tablet(s) P O 01/26/2015 12/22/2015 Inactive Depo-Provera 150 mg/mL intramuscular suspension RxNorm: 1000 128 1 Milliliter(s) IM 09/06/2014 02/15/2015 Inactive Xanax 0.25 mg tablet RxNorm: 888460 1/2 - 1 Tablet(s) PO as nee ded for anxiety 06/16/2014 04/12/2015 Inactive Zoloft 50 mg tablet RxNorm: 214359 1 Tablet(s) PO QD 06/16/201412/21 Inactive Flexeril [...] 2014 Inactive Xanax 0.25 mg tablet RxNorm: 018649 1/2 - 1 Tablet(s) PO as nee ded for anxiety 01/28/2014 06/15/2014 Inactive naproxen 500 mg tablet RxNorm: 920492 1 Tablet(s) PO BID 12/10/2013 0 01/08/2014 Inactive Zoloft 50 mg tablet RxNorm: 121861 1 Tablet(s) PO QD 12/10/201304/08 Inactive Xanax 0.25 mg tablet RxNorm: 375256 1/2 - 1 Tablet(s) PO as nee ded for anxiety 12/10/2013 01/27/2014 Inactive Xanax 0.25 mg tablet RxNorm: 012965 1 Tablet(s) PO Q8H 10/20/2013 Inactive Zoloft 50 mg tablet RxNorm: 456020 1/2 Tablet(s) PO x 6 days then on1 tablet daily 10/20/2013 11/18/2013 Inactive Loestrin Fe 06/01 (28) 1 mg-20 mcg tablet RxNorm: 8761316 1 Table t(s) PO QD 10/20/2013 05/03/2014 Inactive phenazopyridine 100 mg tablet RxNorm: 0330123 1 Tablet(s) PO Q8H 06/26/2013 Inactive Macrobid 100 mg capsule RxNorm: 503012 1 Capsule(s) PO BID 06/25/19 14 07/04/2013 Inactive phenazopyridine 100 mg tablet RxNorm: 1586400 1 Tablet(s) PO Q8H 06/24/2013 Inactive Macrobid 100 mg capsule RxNorm: 904530 1 Capsule(s) PO BID 07/25/19 11 08/02/2010 Inactive Apri 0.15 mg-30 mcg tablet RxNorm: 462665 1 Tablet(s) PO QD As directed. No Start Date 06/23/2013 Inactive omeprazole 40 mg capsule,delayed release RxNorm: 235015 1 Capsule(s) PO QD for stomach No Start Date 06/23/2013 Inactive naproxen 500 mg tablet RxNorm: 681573 1 Tablet(s) PO BID No Start D ate 06/15/2014 Inactive hydrocodone 10 mg-acetaminophen 325 mg tablet RxNorm: 143135 Tablet(s) PO as needed for pain No Start Date 12/22/2015 Inactive Zoloft 50 mg tablet RxNorm: 738378 1 Tablet(s) PO QD No Start Date Inactive hydrocodone 5 mg-acetaminophen 325 mg tablet RxNorm: 799316 1 Tablet(s) PO QID as needed for pain No Start Date 09/14/2013 Inactive Medication Administered No Medication Administered data Immunizations No Immunization data Results Observation Observation Code Item Item Code Result Date S ervice Location LIPASE 87919 LIPASE 14 IU/L 01/28/2014 Unknown COMPLETE BLOOD COUNT [id number] WBC 6.5 10e9/L 01/29/20 14 Unknown COMPLETE BLOOD COUNT [id number] RBC 4.54 10e12/L 2013 Unknown COMPLETE BLOOD COUNT [id number] HGB 12.1 g/dL 4 Unknown COMPLETE BLOOD COUNT [id number] HCT DET 38.0 % 4 Unknown COMPLETE BLOOD COUNT [id number] MCV 83.7 fL 4 Unknown COMPLETE BLOOD COUNT [id number] MCH 26.7 pg 4 Unknown COMPLETE BLOOD COUNT [id number] MCHC 31.8 g/dL 4 Unknown COMPLETE BLOOD COUNT [id number] PLT 218 10e9/L 01/29/20 14 Unknown COMPLETE BLOOD COUNT [id number] MPV 12.8 fL 4 Unknown COMPLETE BLOOD COUNT [id number] RACHNA % 56.5 % 4 Unknown COMPLETE BLOOD COUNT [id number] LY % 32.3 % 4 Unknown COMPLETE BLOOD COUNT [id number] MON % 8.6 % 4 Unknown COMPLETE BLOOD COUNT [id number] EOS % 2.1 % 4 Unknown COMPLETE BLOOD COUNT [id number] BASO % 0.5 % 4 Unknown COMPLETE BLOOD COUNT [id number] RDW 18.4 % 4 Unknown COMPLETE BLOOD COUNT [id number] ABS RACHNA 3.67 10e9/L 014 Unknown COMPLETE BLOOD COUNT [id number] ABS LYMPH 2.10 10e9/L 014 Unknown COMPLETE BLOOD COUNT [id number] ABS MONO 0.56 10e9/L 014 Unknown COMPLETE BLOOD COUNT [id number] ABS EOS 0.14 10e9/L 014 Unknown COMPLETE BLOOD COUNT [id number] ABS BASO 0.03 10e9/L 014 Unknown COMPLETE BLOOD COUNT [id number] RDW-SD 55.5 fL 4 Unknown COMPREHENSIVE METABOLIC 40547 AST 13 U/L 2013 Unknown COMPREHENSIVE METABOLIC 67005 ALT 7 IU/L 2013 Unknown COMPREHENSIVE METABOLIC 18367 BUN 8 MG/DL 2013 Unknown COMPREHENSIVE METABOLIC 36841 ALBUMIN 4.5 GM/DL 2013 Unknown COMPREHENSIVE METABOLIC 80330 CHLORIDE 106 MMOL/L 01/28 Unknown COMPREHENSIVE METABOLIC 81291 BILI TOT 0.4 MG/DL 2013 Unknown COMPREHENSIVE METABOLIC 57475 ALK PHOS 55 U/L 2013 Unknown COMPREHENSIVE METABOLIC 23810 SODIUM 138 MMOL/L 01/28 Unknown COMPREHENSIVE METABOLIC 50829 CREATININE 0.73 MG/DL 01/11 Unknown COMPREHENSIVE METABOLIC 07124 CALCIUM 9.9 MG/DL 2013 Unknown COMPREHENSIVE METABOLIC 11872 POTASSIUM 3.8 MMOL/L 01/28 Unknown COMPREHENSIVE METABOLIC 38778 PROT TOT 7.4 GM/DL 2013 Unknown COMPREHENSIVE METABOLIC 21163 Glucose 96 MG/DL 2013 Unknown COMPREHENSIVE METABOLIC 96551 BICARB 27 MMOL/L 2013 Unknown COMPREHENSIVE METABOLIC 74629 ANION GAP 5 MEQ/L 2013 Unknown AMYLASE 52076 AMYLASE 42 IU/L 01/28/2014 Unknown GFR CALC 9014713 GFR AA >60 ML/MIN 01/28/2014 Unknown GFR CALC 9254051 GFR NON-AA >60 ML/MIN 01/28/2014 Unknown Procedures Procedure Codes Date URINE CULTURE/ COLONY COUNT CPT-4: 34182 06/15/2019 URINALYSIS NONAUTO W/O SCOPE CPT-4: 45427 06/05/2019 CEFTRIAXONE SODIUM INJECTION CPT-4: J0696 06/05/2019 THER/PROPH/DIAG INJ SC/IM CPT-4: 17784 06/05/2019 URINE CULTURE/ COLONY COUNT CPT-4: 47405 06/05/2019 URINE CULTURE/ COLONY COUNT CPT-4: 41991 03/02/2019 THER/PROPH/DIAG INJ SC/IM CPT-4: 40918 02/16/2019 URINE CULTURE/ COLONY COUNT CPT-4: 76886 02/16/2019 URINALYSIS NONAUTO W/O SCOPE CPT-4: 60836 02/16/2019 URINE TEST CPT-4: 82854 02/16/2019 THER/PROPH/DIAG INJ SC/IM CPT-4: 33182 05/21/2018 THER/PROPH/DIAG INJ SC/IM CPT-4: 69891 11/26/2017 THER/PROPH/DIAG INJ SC/IM CPT-4: 54938 08/27/2017 THER/PROPH/DIAG INJ SC/IM CPT-4: 63329 06/06/2017 URINALYSIS NONAUTO W/O SCOPE CPT-4: 63433 06/06/2017 GC/CHLAMYDIA DNA (BD-ProbeTe) CPT-4: 24963|99893 8 URINE CULTURE/ COLONY COUNT CPT-4: 32834 06/06/2017 THER/PROPH/DIAG INJ SC/IM CPT-4: 32968 01/04/2017 SPECIMEN HANDLING OFFICE-LAB CPT-4: 86119 10/18/2016 THER/PROPH/DIAG INJ SC/IM CPT-4: 02122 10/12/2016 INFLUENZA ASSAY W/OPTIC CPT-4: 02725 08/08/2016 THER/PROPH/DIAG INJ SC/IM CPT-4: 10383 07/25/2016 THER/PROPH/DIAG INJ SC/IM CPT-4: 78503 05/03/2016 THER/PROPH/DIAG INJ SC/IM CPT-4: 12508 02/20/2016 URINE TEST CPT-4: 39304 02/20/2016 AEROBIC WOUND CULTURE & STN CPT-4: 98782 12/23/2015 THER/PROPH/DIAG INJ SC/IM CPT-4: 33771 11/07/2015 URINE TEST CPT-4: 67136 11/07/2015 THER/PROPH/DIAG INJ SC/IM CPT-4: 08525 08/01/2015 THER/PROPH/DIAG INJ SC/IM CPT-4: 91582 05/11/2015 THER/PROPH/DIAG INJ SC/IM CPT-4: 57699 02/16/2015 THER/PROPH/DIAG INJ SC/IM CPT-4: 01784 11/29/2014 THER/PROPH/DIAG INJ SC/IM CPT-4: 48973 09/09/2014 URINE TEST CPT-4: 37492 06/16/2014 THER/PROPH/DIAG INJ SC/IM CPT-4: 09534 06/16/2014 ROUTINE VENIPUNCTURE CPT-4: 42834 10/07/2013 COMPLETE CBC W/AUTO DIFF WBC CPT-4: 30448 10/07/2013 CHORIONIC GONADOTROPIN TEST CPT-4: 76762 10/07/2013 URINE TEST CPT-4: 22265 09/15/2013 URINALYSIS NONAUTO W/O SCOPE CPT-4: 73888 06/24/2013 URINE CULTURE/ COLONY COUNT CPT-4: 86079 06/24/2013 URINE TEST CPT-4: 32113 09/08/2010 URINALYSIS NONAUTO W/O SCOPE CPT-4: 45507 07/24/2010 URINE CULTURE/ COLONY COUNT CPT-4: 81988 07/24/2010 DESTRUCT PREMALG LESION (Cryosurgery) CPT-4: 85709 DESTRUCT PREMALG LES 2-14 CPT-4: 89897 03/08/2010 Vital Signs Date Vital 07/07/2019 Blood Pressure 1: 126/82 Code: 8480-6 Heart Rate 1: 100 bpm SpO2: 99% Temperature: 36.8 (C) / 98.2 (F) 06/05/2019 Blood Pressure 1: 131/82 Code: 8480-6 BMI: 26.3 Code: 96852-9 Heart Rate 1: 109 bpm Height: 5'9" Respiratory Rate: 16 bpm SpO2: 99% Tempera ture: 36.7 (C) / 98.1 (F) Weight: 178 lbs 03/16/2019 Blood Pressure 1: 132/86 Code: 8480-6 Heart Rate 1: 73 bpm SpO2: 99% Temperature: 36.6 (C) / 97.9 (F) Weight: 158 lbs 03/03/2018 Blood Pressure 1: 120/88 Code: 8480-6 BMI: 23.9 Code: 85680-4 Heart Rate 1: 81 bpm Height: 5'9" Respiratory Rate: 18 bpm SpO2: 99% Tempera ture: 36.1 (C) / 97.0 (F) Weight: 162 lbs 10/18/2016 Blood Pressure 1: 108/78 Code: 8480-6 BMI: 22.6 Code: 14324-6 Heart Rate 1: 100 bpm Height: 5'9" Respiratory Rate: 20 bpm SpO2: 98% Tempera ture: 37.1 (C) / 98.8 (F) Weight: 153 lbs 08/08/2016 Blood Pressure 1: 114/78 Code: 8480-6 Heart Rate 1: 102 bpm Respiratory Rate: 20 bpm SpO2: 98% Temperature: 36.4 (C) / 97.6 (F) We ight: 152 lbs 05/15/2016 Blood Pressure 1: 124/80 Code: 8480-6 BMI: 23.2 Code: 16590-8 Heart Rate 1: 100 bpm Height: 5'9" Respiratory Rate: 20 bpm Temperature: 37 .0 (C) / 98.6 (F) Weight: 157 lbs 12/23/2015 Blood Pressure 1: 124/78 Code: 8480-6 BMI: 23.0 Code: 17570-6 Heart Rate 1: 92 bpm Height: 5'9" Respiratory Rate: 20 bpm SpO2: 97% Tempera ture: 36.9 (C) / 98.5 (F) Weight: 156 lbs 01/26/2015 Blood Pressure 1: 11878 Code: 8480-6 BMI: 21.3 Code: 67213-1 Heart Rate 1: 100 bpm Height: 5'9" Respiratory Rate: 20 bpm SpO2: 97% Tempera ture: 36.6 (C) / 97.8 (F) Weight: 144 lbs 06/16/2014 Blood Pressure 1: 118 Code: 8480-6 BMI: 23.5 Code: 28982-5 Heart Rate 1: 78 bpm Height: 5'9" Respiratory Rate: 18 bpm Temperature: 36 .1 (C) / 97.0 (F) Weight: 159 lbs 01/28/2014 Blood Pressure 1: 124 Code: 8480-6 BMI: 23.2 Code: 12302-6 Heart Rate 1: 88 bpm Height: 5'9" Respiratory Rate: 22 bpm Temperature: 36 .1 (C) / 97.0 (F) Weight: 157 lbs 12/10/2013 Blood Pressure 1: 124/70 Code: 8480-6 BMI: 23.0 Code: 83223-3 Heart Rate 1: 82 bpm Height: 5'9" Respiratory Rate: 20 bpm Temperature: 36 .2 (C) / 97.2 (F) Weight: 156 lbs 10/20/2013 Blood Pressure 1: 118/82 Code: 8480-6 Heart Rate 1: 84 bpm Respiratory Rate: 22 bpm Temperature: 36.5 (C) / 97.7 (F) Weight: 150 lbs 10/07/2013 Blood Pressure 1: 120/80 Code: 8480-6 BMI: 22.2 Code: 72733-8 Heart Rate 1: 68 bpm Height: 5'9" Respiratory Rate: 22 bpm Temperature: 36 .2 (C) / 97.2 (F) Weight: 150 lbs 09/15/2013 Blood Pressure 1: 118/68 Code: 8480-6 BMI: 22.0 Code: 79961-7 Heart Rate 1: 78 bpm Height: 5'9" Respiratory Rate: 20 bpm Temperature: 36 .1 (C) / 97.0 (F) Weight: 149 lbs 06/24/2013 Blood Pressure 1: 112/74 Code: 8480-6 Heart Rate 1: 74 bpm Respiratory Rate: 20 bpm Temperature: 36.6 (C) / 97.9 (F) Weight: 150 lbs 03/05/2013 Blood Pressure 1: 126/88 Code: 8480-6 BMI: 23.5 Code: 09876-1 Heart Rate 1: 80 bpm Height: 5'9" Respiratory Rate: 20 bpm Temperature: 36 .6 (C) / 97.9 (F) Weight: 159 lbs 02/09/2013 Blood Pressure 1: 110/68 Code: 8480-6 BMI: 21.9 Code: 30754-0 Heart Rate 1: 74 bpm Height: 5'9" Respiratory Rate: 22 bpm Temperature: 36 .8 (C) / 98.2 (F) Weight: 148 lbs 09/08/2010 Blood Pressure 1: 124/90 Code: 8480-6 BMI: 21.4 Code: 88665-9 Height: 5'10" Temperature: 36.4 (C) / 97.6 [...] painful Encounters Encounter Performer Location Codes Date ([id number]) OFFICE/OUTPATIENT VISIT EST Diagnosis: Urethritis[ICD10: N34.2] Diagnosis: History of renal stone[ICD10: Z87.442] Josefa MICHAUD CPT-4: 85180 07/07/2019 ([id number]) NURSE/OUTPATIENT VISIT EST Diagnosis: Urinary tract infection[ICD10: N39.0] Josefa [facility]ANTES [facility] CPT-4: 38979 06/15/2019 ([id number]) OFFICE/OUTPATIENT VISIT EST Diagnosis: Dysuria[ICD10: R30.0] Diagnosis: Pelvic pain in female[ICD10: R10.2] Keyanna T[facility]ANTES [facility] CPT-4: 32466 06/05/2019 ([id number]) OFFICE/OUTPATIENT VISIT EST Diagnosis: Left wrist pain[ICD10: M25.532] Diagnosis: Swelling of left upper extremity[ICD10: M79.89] Keyanna [facility]ANT[facility] CPT-4: 78640 03/16/2019 ([id number]) NURSE/OUTPATIENT VISIT EST Diagnosis: Urinary tract infection[ICD10: N39.0] Josefa T[facility]ANT[facility] CPT-4: 35444 03/02/2019 ([id number]) NURSE/OUTPATIENT VISIT EST Diagnosis: Irregular menstruation, unspecified[ICD10: N92.6] Diagnosis: Urinary tract infection[ICD10: N39.0] Josefa T[facility]ANTES [facility] CPT-4: 85063 02/16/2019 ([id number]) NURSE/OUTPATIENT VISIT EST Diagnosis: Irregular menstruation, unspecified[ICD10: N92.6] Josefa T[facility]ANTES [facility] CPT-4: 90814 05/21/2018 ([id number]) OFFICE/OUTPATIENT VISIT EST Diagnosis: Irregular menstruation, unspecified[ICD10: N92.6] Diagnosis: Diseases of lips[ICD10: K13.0] Diagnosis: 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] Keyanna T[facility]ANT[facility] CPT-4: 26982 03/03/2018 ([id number]) NURSE/OUTPATIENT VISIT EST Diagnosis: Irregular menstruation, unspecified[ICD10: N92.6] Josefa TALAMANTES [facility] CPT-4: 08668 11/26/2017 ([id number]) OFFICE/OUTPATIENT VISIT EST Diagnosis: Irregular menstruation, unspecified[ICD10: N92.6] Josefa TAL[facility]ANTES [facility] CPT-4: 41994 08/27/2017 ([id number]) OFFICE/OUTPATIENT VISIT EST Diagnosis: Dysuria[ICD10: R30.0] Diagnosis: Irregular menstruation, unspecified[ICD10: N92.6] Josefa TALAMANTES [facility] CPT-4: 33834 06/06/2017 ([id number]) OFFICE/OUTPATIENT VISIT EST Diagnosis: Irregular menstruation, unspecified[ICD10: N92.6] Josefa TALAMANTES [facility] CPT-4: 35451 01/04/2017 ([id number]) PREV VISIT EST AGE 18-39 Diagnosis: Encounter for general adult medical examination without abnormal findings[ICD10: Z00.00] Diagnosis: Encounter for gynecological examination (general) (routine) without abnormal findings[ICD10: Z01.419] Diagnosis: Gastro-esophageal reflux disease without esophagitis[ICD10: K21.9] Diagnosis: Dysphagia, pharyngeal phase[ICD10: R13.13] Josefa TALAMANTES [employer] [facility] CPT-4: 58778 10/18/2016 ([id number]) OFFICE/OUTPATIENT VISIT EST Diagnosis: Irregular menstruation, unspecified[ICD10: N92.6] Josefa TALAMANTES [facility] CPT-4: 30052 10/12/2016 ([id number]) OFFICE/OUTPATIENT VISIT EST Diagnosis: Fever, unspecified[ICD10: R50.9] Diagnosis: Influenza due to identified novel influenza A virus with other respiratory manifestations[ICD10: J09.X2] Catrina Shant [facility] CPT-4: 41085 08/08/2016 ([id number]) OFFICE/OUTPATIENT VISIT EST Diagnosis: Irregular menstruation, unspecified[ICD10: N92.6] Josefa T[facility]ANTES [facility] CPT-4: 62697 07/25/2016 ([id number]) OFFICE/OUTPATIENT VISIT EST Diagnosis: Right upper quadrant pain[ICD10: R10.11] Diagnosis: Unspecified abdominal pain[ICD10: R10.9] Josefa TALAMANTES [facility] CPT-4: 23470 05/15/2016 ([id number]) OFFICE/OUTPATIENT VISIT EST Diagnosis: Irregular menstruation, unspecified[ICD10: N92.6] Josefa TALAMANTES [facility] CPT-4: 19034 05/03/2016 ([id number]) OFFICE/OUTPATIENT VISIT EST Diagnosis: Irregular menstruation, unspecified[ICD10: N92.6] Josefa TALAMANTES [facility] CPT-4: 71441 02/20/2016 OFFICE/OUTPATIENT VISIT EST Diagnosis: Cutaneous abscess of buttock[ICD10: L02.31] Kitty Caldera JOSEFA [facility] CPT-4: 92454 12/23/2015 ([id number]) OFFICE/OUTPATIENT VISIT EST Diagnosis: Irregular menstruation, unspecified[ICD10: N92.6] Josefa T[facility]ANT[facility] CPT-4: 80742 11/07/2015 ([id number]) OFFICE/OUTPATIENT VISIT EST Diagnosis: Irregular menstruation, unspecified[ICD10: N92.6] Josefa TALAMANTES [facility] CPT-4: 30885 08/01/2015 ([id number]) OFFICE/OUTPATIENT VISIT EST Diagnosis: Irregular menstruation, unspecified[ICD10: N92.6] Josefa T[facility]ANTES [facility] CPT-4: 01155 05/11/2015 ([id number]) OFFICE/OUTPATIENT VISIT EST Diagnosis: Irregular menstruation, unspecified[ICD10: N92.6] Josefa T[facility]AMANTES [facility] CPT-4: 90238 02/16/2015 OFFICE/OUTPATIENT VISIT EST Diagnosis: SINUSITIS, ACUTE[ICD9: 461.9] Malgorzata Islas JOSEFA [facility] CPT-4: 01107 01/26/2015 ([id number]) OFFICE/OUTPATIENT VISIT EST Diagnosis: IRREGULAR MENSTRUATION[ICD9: 626.4] Josefa Vinita T[facility] CPT-4: 33804 11/29/2014 ([id number]) OFFICE/OUTPATIENT VISIT EST Diagnosis: IRREGULAR MENSTRUATION[ICD9: 626.4] Josefa TALAMANTES [facility] CPT-4: 25879 09/09/2014 ([id number]) OFFICE/OUTPATIENT VISIT EST Diagnosis: IRREGULAR MENSTRUATION[ICD9: 626.4] Diagnosis: General counseling and advice on contraceptive management[ICD9: V25.09] Diagnosis: Anxiety and depression[ICD9: 300.4] Malgorzata TALAMANTES [facility] CPT-4: 47818 06/16/2014 OFFICE/OUTPATIENT VISIT EST Diagnosis: Right upper quadrant pain[ICD9: 789.01] Malgorzata TALAMANTES [facility] CPT-4: 65919 01/28/2014 OFFICE/OUTPATIENT VISIT EST Diagnosis: Right upper quadrant pain[ICD9: 789.01] Malgorzata TALAMANTES [facility] CPT-4: 27790 12/10/2013 OFFICE/OUTPATIENT VISIT EST Diagnosis: Anxiety and depression[ICD9: 300.4] Malgorzata TALAMANTES [facility] CPT-4: 88823 10/20/2013 OFFICE/OUTPATIENT VISIT EST Diagnosis: Menorrhagia[ICD9: 626.2] Malgorzata RIVERA [facility] CPT-4: 81606 10/07/2013 OFFICE/OUTPATIENT VISIT EST Diagnosis: IRREGULAR MENSTRUATION[ICD9: 626.4] Malgorzata TALAMANTES [facility] CPT-4: 62944 09/15/2013 OFFICE/OUTPATIENT VISIT EST Diagnosis: HEMATURIA NOS[ICD9: 599.70] Diagnosis: Abdominal discomfort in right upper quadrant[ICD9: 789.01] Malgorzata TALAMANTES [facility] CPT-4: 62647 06/24/2013 ([id number]) OFFICE/OUTPATIENT VISIT EST Diagnosis: ABDOMINAL PAIN[ICD9: 789.00] Diagnosis: GERD[ICD9: 530.81] Josefa Vinita TALAMANTES [facility] CPT-4: 28328 03/05/2013 OFFICE/OUTPATIENT VISIT EST Diagnosis: General counseling and advice on contraceptive management[ICD9: V25.09] Diagnosis: IRREGULAR MENSTRUATION[ICD9: 626.4] Malgorzata SNELLNELIDAAngelique TALAMANTES DO [facility] CPT-4: 97003 02/09/2013 ([id number]) OFFICE/OUTPATIENT VISIT EST Justine TALAMANTES DO [facility] CPT-4: 24059 09/08/2010 ([id number]) OFFICE/OUTPATIENT VISIT EST Justine TALAMANTES DO [employer] [facility] CPT-4: 36394 07/24/2010 Plan of Care Planned Activity Notes [...] : Z87.442 07/07/2019 Appointment: Josefa Talamantes WPtel: [address] [place] [address] ACUTE ILLNESS 07/07/2019 Patient Education: nystatin- [employer] Coupon [id number] [email or web address] Completed 07/07/2019 Appointment: Josefa Talamantes WPtel: [address] [place] [address] 06/15/2019 Visit Diagnosis Plan: Dysuria Discussion: due to recur rent pain and worsening symptoms, rocephin 1 gm given in office. will send urine off for culture and call on saturday if any changes needed. instructed to push fluids through the w eekend and go to urgent care with any worsening. ICD-9 : 788.1 ICD-10 : R30.0 06/05/2019 Appointment: Keyanna Mejía [address] [place] [address] FOLLOW UP 06/05/2019 Visit Diagnosis Plan: Left [...] : M25.532 03/16/2019 Appointment: Keyanna Mejía [address] [place], [place] [address] [address] [facility] Follow Up 03/16/2019 Appointment: Josefa Talamantes WPtel: [address] [place] [address] US UA 03/02/2019 Appointment: Josefa Talamantes WPtel: [address] [place], [place] [phone] [place] INJECTION 02/16/2019 Appointment: Josefa Talamantes WPtel: [address] [place], [place] [phone] [place] INJECTION 05/21/2018 Visit Diagnosis Plan: Diseases of lips Discussion: ref erral to be sent to dr. galloway for evaluation of mass for possible debridement. instructed patient to apply warm compresses to lip until seen. ICD-9 : 528.5 ICD-10 : K13.0 03/03/2018 Visit Diagnosis Plan: Irregular menstruation, unspecif ied Discussion: urine performed in office and negative. patient to black pickler depo prescription and bring back to [...] ICD-10 : E04.1 03/03/2018 Appointment: Keyanna Mejía [address] [place], [place] [address] [address] ACUTE ILLNESS 03/03/2018 Patient Education: Patient Medication Summary Completed 03/03/2018 Care Plan: US EXAM OF HEAD AND NECK thyroid LOIN C : 05369-0 Pending 03/03/2018 Appointment: Josefa Talamantes WPtel: [address] [place], [place] [phone] [place] CANCELED 02/27/2018 Appointment: Josefa Talamantes WPtel: [address] [place], [place] [phone] [place] INJECTION 11/26/2017 Patient Education: Patient Medication Summary Completed 11/26/2017 Appointment: Josefa Talamantes WPtel: [address] [place], [place] [phone] [place] INJECTION 08/27/2017 Patient Education: Patient Medication Summary Completed 08/27/2017 Appointment: Josefa Talamantes WPtel: [address] [place], [place] [phone] [place] INJECTION 06/06/2017 Patient Education: Patient Medication Summary Completed 06/06/2017 Appointment: Josefa Talamantes WPtel: [address] [place], [place] [phone] [place] INJECTION 01/04/2017 Patient Education: Patient Medication Summary Completed 01/04/2017 Appointment: Josefa Talamantes WPtel: [address] [place], [place] [phone] [place] 11/19 lm `sl 11/21 lm `sl NO SHOW 11/22/19 17 Patient Education: Patient Medication Summary Completed 10/22/2016 Care Plan: US EXAM OF HEAD AND NECK Thyroid Ultrasound LOIN C : 91935-6 Pending 10/22/2016 Visit Diagnosis Plan: Encounter for [...] : K21.9 10/18/2016 Appointment: Josefa Talamantes WPtel: [address] [place], [place] [phone] [place] 6 ` Annual Well Visit 10/18/2016 Patient Education: Patient Medication Summary Completed 10/18/2016 Appointment: Josefa Talamantes WPtel: [address] [place], [place] [phone] [place] INJECTION 10/12/2016 Patient Education: Patient Medication Summary Completed 10/12/2016 Visit Diagnosis Plan: Influenza due to i dentified novel influenza A virus with other respiratory manifestations Discussion: Flu A positive Rx as above Supportive care otherwise Contagious precautions discussed Notify kids' provider of exposure for their instructions ICD-9 : 488.02 ICD-10 : J09.X2 08/08/2016 Appointment: Catrina Bran [address] [place], [place] [phone] ACUTE ILLNESS 08/08/2016 Patient Education: Patient Medication Summary Completed 08/08/2016 Appointment: Josefa Talamantes WPtel: [address] [place], [place] [phone] [place] INJECTION 07/25/2016 Patient Education: Patient Medication Summary Completed 07/25/2016 Visit Plan: Finish abx and then recultur e 48hrs after completion Add levsin and zorvolex 05/15/2016 Appointment: Josefa Talamantes WPtel: [address] [place], [place] [id number] [place] / [facility] 05/15 confirmed~ Hospital Follow Up 0 05/15/2016 Patient Education: Patient Medication Summary Completed 05/15/2016 Appointment: Catrina Bran [address] [place], [place] [id number] 05/09 admitted into the hospital last night~ ACUTE ILLNESS 05/09/2016 Appointment: [facility] [phone] [facility] [place] [facility] 05/03/2016 Patient Education: Patient Medication Summary Completed 05/03/2016 Appointment: Josefa Talamantes WPtel: [phone] [facility] [place] INJECTION 02/20/2016 Patient Education: Patient Medication [...] C&S obtained 12/23/2015 Appointment: Kitty Caldera WPtel: [address] [place], [place] [phone] [place] ACUTE ILLNESS 12/23/2015 Patient Education: Patient Medication Summary Completed 12/23/2015 Appointment: Josefa Talamantes WPtel: [address] [place], [place] [id number] [place] INJECTION 11/07/2015 Patient Education: Patient Medication Summary Completed 11/07/2015 Appointment: Josefa Talamantes WPtel: [address] [place], [place] [id number] [place] INJECTION 08/01/2015 Patient Education: Patient Medication Summary Completed 08/01/2015 Appointment: Josefa Talamantes WPtel: [address] [place], [place] [id number] [place] INJECTION 05/11/2015 Patient Education: Patient Medication Summary Completed 05/11/2015 Appointment: Malgorzata Islas WPtel: [address] [place], [place] [id number] [place] PAP 04/05/2015 Appointment: Josefa Talamantes WPtel: [address] [place] [id number] [place] INJECTION 02/16/2015 Patient Education: Patient Medication Summary Completed 02/16/2015 Visit Plan: Daily nasal saline rinses Fl onase nasal spray and daily Zyrtec Medrol dose pack Z-jhonathan as directed 01/26/2015 Appointment: Malgorzata Islas WPtel: [address] [place] [address] ACUTE ILLNESS 01/26/2015 Patient Education: Patient Medication Summary Completed 01/26/2015 Appointment: Josefa Talamantes WPtel: [address] [place], [place] [id number] INJECTION 11/29/2014 Patient Education: Patient Medication Summary Completed 11/29/2014 Appointment: Josefa Talamantes WPtel: [address] [place] [address] INJECTION 09/09/2014 Patient Education: Patient Medication Summary Completed 09/09/2014 Appointment: Malgorzata Islas WPtel: [address] [place] [address] FOLLOW UP 06/16/2014 Patient Education: Patient Medication Summary Completed 06/16/2014 Appointment: Malgorzata Islas WPtel: [address] [place], [place] [phone] 06/02/14 appointment scheduled 06/03/14 no showed PAP 06/03/2014 Appointment: Malgorzata Islas WPtel: [address] [place], [place] [phone] FOLLOW UP 01/28/2014 Patient Education: Patient Medication Summary Completed 01/28/2014 Care Plan: [place] : [address]-3 Ordered 01/28/2014 Care Plan: AMYLASE Pending 4 Appointment: Malgorzata Islas WPtel: [address] [place], [place] [phone] [place] FOLLOW UP 12/10/2013 Patient Education: Patient Medication Summary Completed 12/10/2013 Appointment: Malgorzata Islas WPtel: [address] [place], [place] [phone] 11/11 11/12 No Show FOLLOW UP 11/12/2013 Appointment: Malgorzata Islas WPtel: [address] [place] [address] [place] FOLLOW UP 10/20/2013 Patient Education: Patient Medication Summary Completed 10/20/2013 Visit Plan: Quantitative Hcg and CBC tod ay. Transvaginal/Transabdominal sonogram stat Discussed with [employer]CH[employer]IAN and [facility] 343 so will recheck in 1week as long as not worsening 10/07/2013 Appointment: Malgorzata Islas WPtel: [address] [place] [address] ACUTE ILLNESS 10/07/2013 Patient Education: Patient Medication Summary Completed 10/07/2013 Appointment: Malgorzata Islas WPtel: [address] [place], [place] [id number] ACUTE ILLNESS 09/15/2013 Patient Education: Patient Medication Summary Completed 09/15/2013 Appointment: Malgorzata Islas WPtel: [address] [place], [place] [phone] ACUTE ILLNESS 06/24/2013 Patient Education: Patient Medication Summary Completed 06/24/2013 Appointment: Malgorzata Islas WPtel: [address] [place], [place] [phone] [place] appt was scheduled today then patient no showed the visit ACUTE ILLNESS 05/21/2013 Visit Plan: Check CMP, CBC, UA CT scan o f abdomen Omeprazole 03/05/2013 Appointment: Josefa Talamantes WPtel: [address] [place], [place] [phone] ACUTE ILLNESS 03/05/2013 Appointment: Josefa Talamantes WPtel: [address] [place], [place] [phone] 03/02 canceled, wrong patient FOLLOW UP Patient Education: Patient Medication Summary Completed 03/05/2013 Appointment: Malgorzata Islas WPtel: [address] [place] [address] ACUTE ILLNESS 02/09/2013 Patient Education: Patient Medication Summary Completed 02/09/2013 Appointment: Justine Ortega WPtel: [address] [place] [address] ACUTE ILLNESS 09/08/2010 Patient Education: Patient Medication Summary Completed 09/08/2010 Appointment: Justine Ortega WPtel: [address] [place] [address] [place] PAP 08/08/2010 Appointment: Justine Ortega WPtel: [address] [place] [address] ACUTE ILLNESS 07/24/2010 Patient Education: Patient Medication Summary Completed 07/24/2010 Visit Plan: All warts shaved with 11-rekha de scalpel and then cryotherapy x3 Will followup with DNCB treatment 03/08/2010 Appointment: Josefa Talamantes WPtel: [address] [place] [address] ACUTE ILLNESS 03/08/2010 Patient Education: Patient Medication Summary Completed 03/08/2010 Appointment: Josefa Talamantes WPtel: [address] [place] [address] [place] PAP 09/14/2009 Referral: Roney Galloway WPtel: [address] Referral Initiated Referral: Brian Floyd WPtel: [address] [place] [address] [place] Referral Initiated Referral: Referral Initiated Instructions [...] CBC today. Transvaginal/Transabdominal sonogram stat Discussed with [employer]CHNICIAN and [facility] 343 so will recheck in [...]
--- OUTSIDE RECORDS SUMMARY | 2019-12-11 22:04 | XMS REPORT | CCD ---
Author Author Brenda Talamantes D.O. Organization JOSEFA TALAMANTES DO [facility] Address [address] [place] [address] Phone Care Team Providers Care Casting Sorter Name Role Phone Josefa Talamantes D.O., PP Unavailable CCM Unavailable Summary Purpose Interface Exchange Insurance Providers Payer name Policy type / Coverage type Covered constitution party ID Effective Begin Date Effective End Date [facility]NA [facility] Commercial Insurance [id number] Unknown Family History Family History data not found Social History Social History Element Codes Description Effective Dates Tobacco history SNOMED CT: 870330084 Unknown if ever smoked 01/12 Allergies, Adverse Reactions, Alerts Substance Reaction Codes Entered Date Inactivated Date Status * NO KNOWN FOOD ALLERGIES Unknown 03/08/2010 No Inactiv e Date Active * NO KNOWN ENVIRONMENTAL ALLERGIES Unknown 03/08/2010 N o Inactive Date Active Problems Condition Codes Effective Dates Condition Status Urinary tract infection ICD-9: 599.0 ICD-10: N39.0 [...] Start Date Stop Date Status Fill Instructions Bactrim DS 800 mg-160 mg tablet RxNorm: 996192 1 Tablet(s) Oral two times a day 06/08/2019 06/13/2019 Inactive Bactrim DS 800 mg-160 mg tablet RxNorm: 545695 1 Tablet(s) Oral two times a day 06/08/2019 06/07/2019 Inactive ibuprofen 800 mg tablet RxNorm: 626016 1 Tablet(s) Oral Q8H as needed 03/16/2019 06/05/2019 Inactive Cipro 500 mg tablet RxNorm: 226301 1 Tablet(s) Oral two times a day 03/04/2019 03/11/2019 Inactive Cipro 500 mg tablet RxNorm: 578823 1 Tablet(s) Oral two times a day 03/04/2019 03/03/2019 Inactive Macrobid 100 mg capsule RxNorm: 630860 1 Capsule(s) Oral two ti mes a day 02/16/2019 02/15/2019 Inactive Macrobid 100 mg capsule RxNorm: 369909 1 Capsule(s) Oral two ti mes a [...] 11/24/2017 Inactive Pepcid 40 mg tablet RxNorm: 341257 1 Tablet(s) PO QD 10/18/201603/02 Inactive Depo-Provera 150 mg/mL intramuscular suspension RxNorm: 1000 128 Milliliter(s) 1 Milliliter(s) IM 10/10/2016 06/04/2017 Inactive Tamiflu 75 mg capsule RxNorm: 035421 1 Capsule(s) PO BID 08/08/2016 0 08/12/2016 Inactive Levsin 0.125 mg tablet RxNorm: 8574417 1 Tablet(s) PO TID for fl ank pain 05/15/2016 10/17/2016 Inactive Bactrim DS 800 mg-160 mg tablet RxNorm: 761657 1 Tablet(s) PO BID 0 12/23/2015 01/01/2016 Inactive mupirocin 2 % topical ointment RxNorm: 101570 Application TOP TID 0 12/23/2015 12/29/2015 Inactive Depo-Provera 150 mg/mL intramuscular suspension RxNorm: 1000 128 Milliliter(s) 1 Milliliter(s) IM 11/08/2015 10/09/2016 Inactive Xanax 0.25 mg tablet RxNorm: 821381 TAKE ONE-HALF TO ON E TABLET BY MOUTH NEEDED FOR ANXIETY 04/11/2015 05/10/2015 Inactive Generic For:X ANAX 0.25 MG TABLET 04/11/2015 2:54:57 PM Depo-Provera 150 mg/mL intramuscular suspension RxNorm: 1000 128 Milliliter(s) 1 Milliliter(s) IM 02/15/2015 11/07/2015 Inactive azithromycin 250 mg tablet RxNorm: 024983 2 Tablet(s) P O today, then one tablet on days 2 - 5 01/26/2015 12/22/2015 Inactive Medrol (Jhonathan) 4 mg tablets in a dose pack RxNorm: 159630 Tablet(s) P O 01/26/2015 12/22/2015 Inactive Depo-Provera 150 mg/mL intramuscular suspension RxNorm: 1000 128 1 Milliliter(s) IM 09/06/2014 02/15/2015 Inactive Xanax 0.25 mg tablet RxNorm: 527794 1/2 - 1 Tablet(s) PO as nee ded for anxiety 06/16/2014 04/12/2015 Inactive Zoloft 50 mg tablet RxNorm: 534273 1 Tablet(s) PO QD 06/16/201412/21 Inactive Flexeril [...] 2014 Inactive Xanax 0.25 mg tablet RxNorm: 101951 1/2 - 1 Tablet(s) PO as nee ded for anxiety 01/28/2014 06/15/2014 Inactive naproxen 500 mg tablet RxNorm: 028271 1 Tablet(s) PO BID 12/10/2013 0 01/08/2014 Inactive Zoloft 50 mg tablet RxNorm: 646044 1 Tablet(s) PO QD 12/10/201304/08 Inactive Xanax 0.25 mg tablet RxNorm: 926888 1/2 - 1 Tablet(s) PO as nee ded for anxiety 12/10/2013 01/27/2014 Inactive Xanax 0.25 mg tablet RxNorm: 527539 1 Tablet(s) PO Q8H 10/20/2013 Inactive Zoloft 50 mg tablet RxNorm: 501181 1/2 Tablet(s) PO x 6 days then on1 tablet daily 10/20/2013 11/18/2013 Inactive Loestrin Fe 06/01 (28) 1 mg-20 mcg tablet RxNorm: 7016571 1 Table t(s) PO QD 10/20/2013 05/03/2014 Inactive phenazopyridine 100 mg tablet RxNorm: 6450862 1 Tablet(s) PO Q8H 06/26/2013 Inactive Macrobid 100 mg capsule RxNorm: 393964 1 Capsule(s) PO BID 06/25/19 14 07/04/2013 Inactive phenazopyridine 100 mg tablet RxNorm: 9613114 1 Tablet(s) PO Q8H 06/24/2013 Inactive Macrobid 100 mg capsule RxNorm: 359362 1 Capsule(s) PO BID 07/25/19 11 08/02/2010 Inactive Apri 0.15 mg-30 mcg tablet RxNorm: 376726 1 Tablet(s) PO QD As directed. No Start Date 06/23/2013 Inactive omeprazole 40 mg capsule,delayed release RxNorm: 076763 1 Capsule(s) PO QD for stomach No Start Date 06/23/2013 Inactive naproxen 500 mg tablet RxNorm: 371490 1 Tablet(s) PO BID No Start D ate 06/15/2014 Inactive hydrocodone 10 mg-acetaminophen 325 mg tablet RxNorm: 382857 Tablet(s) PO as needed for pain No Start Date 12/22/2015 Inactive Zoloft 50 mg tablet RxNorm: 520391 1 Tablet(s) PO QD No Start Date Inactive hydrocodone 5 mg-acetaminophen 325 mg tablet RxNorm: 929734 1 Tablet(s) PO QID as needed for pain No Start Date 09/14/2013 Inactive Medication Administered No Medication Administered data Immunizations No Immunization data Results Observation Observation Code Item Item Code Result Date S ervice Location LIPASE 59097 LIPASE 14 IU/L 01/28/2014 Unknown COMPLETE BLOOD COUNT [id number] WBC 6.5 10e9/L 01/29/20 14 Unknown COMPLETE BLOOD COUNT [id number] RBC 4.54 10e12/L 2013 Unknown COMPLETE BLOOD COUNT [id number] HGB 12.1 g/dL 4 Unknown COMPLETE BLOOD COUNT [id number] HCT DET 38.0 % 4 Unknown COMPLETE BLOOD COUNT [id number] MCV 83.7 fL 4 Unknown COMPLETE BLOOD COUNT [id number] MCH 26.7 pg 4 Unknown COMPLETE BLOOD COUNT [id number] MCHC 31.8 g/dL 4 Unknown COMPLETE BLOOD COUNT [id number] PLT 218 10e9/L 01/29/20 14 Unknown COMPLETE BLOOD COUNT [id number] MPV 12.8 fL 4 Unknown COMPLETE BLOOD COUNT [id number] RACHNA % 56.5 % 4 Unknown COMPLETE BLOOD COUNT [id number] LY % 32.3 % 4 Unknown COMPLETE BLOOD COUNT [id number] MON % 8.6 % 4 Unknown COMPLETE BLOOD COUNT [id number] EOS % 2.1 % 4 Unknown COMPLETE BLOOD COUNT [id number] BASO % 0.5 % 4 Unknown COMPLETE BLOOD COUNT [id number] RDW 18.4 % 4 Unknown COMPLETE BLOOD COUNT [id number] ABS RACHNA 3.67 10e9/L 014 Unknown COMPLETE BLOOD COUNT [id number] ABS LYMPH 2.10 10e9/L 014 Unknown COMPLETE BLOOD COUNT [id number] ABS MONO 0.56 10e9/L 014 Unknown COMPLETE BLOOD COUNT [id number] ABS EOS 0.14 10e9/L 014 Unknown COMPLETE BLOOD COUNT [id number] ABS BASO 0.03 10e9/L 014 Unknown COMPLETE BLOOD COUNT [id number] RDW-SD 55.5 fL 4 Unknown COMPREHENSIVE METABOLIC 03362 AST 13 U/L 2013 Unknown COMPREHENSIVE METABOLIC 89637 ALT 7 IU/L 2013 Unknown COMPREHENSIVE METABOLIC 78314 BUN 8 MG/DL 2013 Unknown COMPREHENSIVE METABOLIC 75837 ALBUMIN 4.5 GM/DL 2013 Unknown COMPREHENSIVE METABOLIC 16905 CHLORIDE 106 MMOL/L 01/28 Unknown COMPREHENSIVE METABOLIC 56097 BILI TOT 0.4 MG/DL 2013 Unknown COMPREHENSIVE METABOLIC 95943 ALK PHOS 55 U/L 2013 Unknown COMPREHENSIVE METABOLIC 44350 SODIUM 138 MMOL/L 01/28 Unknown COMPREHENSIVE METABOLIC 30497 CREATININE 0.73 MG/DL 01/11 Unknown COMPREHENSIVE METABOLIC 90918 CALCIUM 9.9 MG/DL 2013 Unknown COMPREHENSIVE METABOLIC 93596 POTASSIUM 3.8 MMOL/L 01/28 Unknown COMPREHENSIVE METABOLIC 97342 PROT TOT 7.4 GM/DL 2013 Unknown COMPREHENSIVE METABOLIC 20516 Glucose 96 MG/DL 2013 Unknown COMPREHENSIVE METABOLIC 46266 BICARB 27 MMOL/L 2013 Unknown COMPREHENSIVE METABOLIC 31886 ANION GAP 5 MEQ/L 2013 Unknown AMYLASE 19018 AMYLASE 42 IU/L 01/28/2014 Unknown GFR CALC [id number] GFR AA >60 ML/MIN 01/28/2014 Unknown GFR CALC [id number] GFR NON-AA >60 ML/MIN 01/28/2014 Unknown Procedures Procedure Codes Date URINE CULTURE/ COLONY COUNT CPT-4: 61610 06/15/2019 URINALYSIS NONAUTO W/O SCOPE CPT-4: 47236 06/05/2019 CEFTRIAXONE SODIUM INJECTION CPT-4: J0696 06/05/2019 THER/PROPH/DIAG INJ SC/IM CPT-4: 49506 06/05/2019 URINE CULTURE/ COLONY COUNT CPT-4: 51130 06/05/2019 URINE CULTURE/ COLONY COUNT CPT-4: 60367 03/02/2019 THER/PROPH/DIAG INJ SC/IM CPT-4: 57674 02/16/2019 URINE CULTURE/ COLONY COUNT CPT-4: 32825 02/16/2019 URINALYSIS NONAUTO W/O SCOPE CPT-4: 66673 02/16/2019 URINE TEST CPT-4: 20119 02/16/2019 THER/PROPH/DIAG INJ SC/IM CPT-4: 71953 05/21/2018 THER/PROPH/DIAG INJ SC/IM CPT-4: 97121 11/26/2017 THER/PROPH/DIAG INJ SC/IM CPT-4: 84851 08/27/2017 THER/PROPH/DIAG INJ SC/IM CPT-4: 91535 06/06/2017 URINALYSIS NONAUTO W/O SCOPE CPT-4: 72818 06/06/2017 GC/CHLAMYDIA DNA (BD-ProbeTe) CPT-4: 44083|17382 8 URINE CULTURE/ COLONY COUNT CPT-4: 66701 06/06/2017 THER/PROPH/DIAG INJ SC/IM CPT-4: 75392 01/04/2017 SPECIMEN HANDLING OFFICE-LAB CPT-4: 83336 10/18/2016 THER/PROPH/DIAG INJ SC/IM CPT-4: 36518 10/12/2016 INFLUENZA ASSAY W/OPTIC CPT-4: 78937 08/08/2016 THER/PROPH/DIAG INJ SC/IM CPT-4: 59404 07/25/2016 THER/PROPH/DIAG INJ SC/IM CPT-4: 26614 05/03/2016 THER/PROPH/DIAG INJ SC/IM CPT-4: 98090 02/20/2016 URINE TEST CPT-4: 22451 02/20/2016 AEROBIC WOUND CULTURE & STN CPT-4: 35544 12/23/2015 THER/PROPH/DIAG INJ SC/IM CPT-4: 23192 11/07/2015 URINE TEST CPT-4: 71424 11/07/2015 THER/PROPH/DIAG INJ SC/IM CPT-4: 88145 08/01/2015 THER/PROPH/DIAG INJ SC/IM CPT-4: 32280 05/11/2015 THER/PROPH/DIAG INJ SC/IM CPT-4: 78678 02/16/2015 THER/PROPH/DIAG INJ SC/IM CPT-4: 26739 11/29/2014 THER/PROPH/DIAG INJ SC/IM CPT-4: 62431 09/09/2014 URINE TEST CPT-4: 24754 06/16/2014 THER/PROPH/DIAG INJ SC/IM CPT-4: 63399 06/16/2014 ROUTINE VENIPUNCTURE CPT-4: 62133 10/07/2013 COMPLETE CBC W/AUTO DIFF WBC CPT-4: 61886 10/07/2013 CHORIONIC GONADOTROPIN TEST CPT-4: 07037 10/07/2013 URINE TEST CPT-4: 47694 09/15/2013 URINALYSIS NONAUTO W/O SCOPE CPT-4: 96153 06/24/2013 URINE CULTURE/ COLONY COUNT CPT-4: 28011 06/24/2013 URINE TEST CPT-4: 56771 09/08/2010 URINALYSIS NONAUTO W/O SCOPE CPT-4: 36092 07/24/2010 URINE CULTURE/ COLONY COUNT CPT-4: 79455 07/24/2010 DESTRUCT PREMALG LESION (Cryosurgery) CPT-4: 12242 DESTRUCT PREMALG LES 2-14 CPT-4: 22134 03/08/2010 Vital Signs Date Vital 06/05/2019 Blood Pressure 1: 131/82 Code: 8480-6 BMI: 26.3 Code: 66185-6 Heart Rate 1: 109 bpm Height: 5'9" Respiratory Rate: 16 bpm SpO2: 99% Tempera ture: 36.7 (C) / 98.1 (F) Weight: 178 lbs 03/16/2019 Blood Pressure 1: 132/86 Code: 8480-6 Heart Rate 1: 73 bpm SpO2: 99% Temperature: 36.6 (C) / 97.9 (F) Weight: 158 lbs 03/03/2018 Blood Pressure 1: 120/88 Code: 8480-6 BMI: 23.9 Code: 59313-8 Heart Rate 1: 81 bpm Height: 5'9" Respiratory Rate: 18 bpm SpO2: 99% Tempera ture: 36.1 (C) / 97.0 (F) Weight: 162 lbs 10/18/2016 Blood Pressure 1: 108/78 Code: 8480-6 BMI: 22.6 Code: 14246-0 Heart Rate 1: 100 bpm Height: 5'9" Respiratory Rate: 20 bpm SpO2: 98% Tempera ture: 37.1 (C) / 98.8 (F) Weight: 153 lbs 08/08/2016 Blood Pressure 1: 114/78 Code: 8480-6 Heart Rate 1: 102 bpm Respiratory Rate: 20 bpm SpO2: 98% Temperature: 36.4 (C) / 97.6 (F) We ight: 152 lbs 05/15/2016 Blood Pressure 1: 124/80 Code: 8480-6 BMI: 23.2 Code: 26796-9 Heart Rate 1: 100 bpm Height: 5'9" Respiratory Rate: 20 bpm Temperature: 37 .0 (C) / 98.6 (F) Weight: 157 lbs 12/23/2015 Blood Pressure 1: 124/78 Code: 8480-6 BMI: 23.0 Code: 94393-6 Heart Rate 1: 92 bpm Height: 5'9" Respiratory Rate: 20 bpm SpO2: 97% Tempera ture: 36.9 (C) / 98.5 (F) Weight: 156 lbs 01/26/2015 Blood Pressure 1: 118/78 Code: 8480-6 BMI: 21.3 Code: 66193-5 Heart Rate 1: 100 bpm Height: 5'9" Respiratory Rate: 20 bpm SpO2: 97% Tempera ture: 36.6 (C) / 97.8 (F) Weight: 144 lbs 06/16/2014 Blood Pressure 1: 118/78 Code: 8480-6 BMI: 23.5 Code: 03057-4 Heart Rate 1: 78 bpm Height: 5'9" Respiratory Rate: 18 bpm Temperature: 36 .1 (C) / 97.0 (F) Weight: 159 lbs 01/28/2014 Blood Pressure 1: 124/78 Code: 8480-6 BMI: 23.2 Code: 95903-5 Heart Rate 1: 88 bpm Height: 5'9" Respiratory Rate: 22 bpm Temperature: 36 .1 (C) / 97.0 (F) Weight: 157 lbs 12/10/2013 Blood Pressure 1: 124/70 Code: 8480-6 BMI: 23.0 Code: 17102-0 Heart Rate 1: 82 bpm Height: 5'9" Respiratory Rate: 20 bpm Temperature: 36 .2 (C) / 97.2 (F) Weight: 156 lbs 10/20/2013 Blood Pressure 1: 118/82 Code: 8480-6 Heart Rate 1: 84 bpm Respiratory Rate: 22 bpm Temperature: 36.5 (C) / 97.7 (F) Weight: 150 lbs 10/07/2013 Blood Pressure 1: 120/80 Code: 8480-6 BMI: 22.2 Code: 89021-3 Heart Rate 1: 68 bpm Height: 5'9" Respiratory Rate: 22 bpm Temperature: 36 .2 (C) / 97.2 (F) Weight: 150 lbs 09/15/2013 Blood Pressure 1: 118/68 Code: 8480-6 BMI: 22.0 Code: 15797-6 Heart Rate 1: 78 bpm Height: 5'9" Respiratory Rate: 20 bpm Temperature: 36 .1 (C) / 97.0 (F) Weight: 149 lbs 06/24/2013 Blood Pressure 1: 112/74 Code: 8480-6 Heart Rate 1: 74 bpm Respiratory Rate: 20 bpm Temperature: 36.6 (C) / 97.9 (F) Weight: 150 lbs 03/05/2013 Blood Pressure 1: 126/88 Code: 8480-6 BMI: 23.5 Code: 24892-3 Heart Rate 1: 80 bpm Height: 5'9" Respiratory Rate: 20 bpm Temperature: 36 .6 (C) / 97.9 (F) Weight: 159 lbs 02/09/2013 Blood Pressure 1: 110/68 Code: 8480-6 BMI: 21.9 Code: 74301-6 Heart Rate 1: 74 bpm Height: 5'9" Respiratory Rate: 22 bpm Temperature: 36 .8 (C) / 98.2 (F) Weight: 148 lbs 09/08/2010 Blood Pressure 1: 124/90 Code: 8480-6 BMI: 21.4 Code: 77323-3 Height: 5'10" Temperature: 36.4 (C) / 97.6 [...] For Visit Effective Dates Notes painful urination 06/05/2019 wrist pain 03/16/2019 follow [...] painful Encounters Encounter Performer Location Codes Date ([id number]) NURSE/OUTPATIENT VISIT EST Diagnosis: Urinary tract infection[ICD10: N39.0] Josefa TALAMANTES [facility] CPT-4: 44301 06/15/2019 ([id number]) OFFICE/OUTPATIENT VISIT EST Diagnosis: Dysuria[ICD10: R30.0] Diagnosis: Pelvic pain in female[ICD10: R10.2] Keyanna TALAMANTES [facility] CPT-4: 84658 06/05/2019 ([id number]) OFFICE/OUTPATIENT VISIT EST Diagnosis: Left wrist pain[ICD10: M25.532] Diagnosis: Swelling of left upper extremity[ICD10: M79.89] Keyanna TALAMANTES DO [employer] CPT-4: 23184 03/16/2019 ([id number]) NURSE/OUTPATIENT VISIT EST Diagnosis: Urinary tract infection[ICD10: N39.0] Josefa TALAMANTES [facility] CPT-4: 29289 03/02/2019 ([id number]) NURSE/OUTPATIENT VISIT EST Diagnosis: Irregular menstruation, unspecified[ICD10: N92.6] Diagnosis: Urinary tract infection[ICD10: N39.0] Josefa TALAMANTES [facility] CPT-4: 54859 02/16/2019 ([id number]) NURSE/OUTPATIENT VISIT EST Diagnosis: Irregular menstruation, unspecified[ICD10: N92.6] Josefa TALAMANTES DO [facility] CPT-4: 63218 05/21/2018 ([id number]) OFFICE/OUTPATIENT VISIT EST Diagnosis: Irregular menstruation, unspecified[ICD10: N92.6] Diagnosis: Diseases of lips[ICD10: K13.0] Diagnosis: 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] Keyanna TALAMANTES DO [facility] CPT-4: 15704 03/03/2018 ([id number]) NURSE/OUTPATIENT VISIT EST Diagnosis: Irregular menstruation, unspecified[ICD10: N92.6] Josefa TALAMANTES DO [facility] CPT-4: 73307 11/26/2017 ([id number]) OFFICE/OUTPATIENT VISIT EST Diagnosis: Irregular menstruation, unspecified[ICD10: N92.6] Josefa TALAMANTES DO [facility] CPT-4: 90846 08/27/2017 ([id number]) OFFICE/OUTPATIENT VISIT EST Diagnosis: Dysuria[ICD10: R30.0] Diagnosis: Irregular menstruation, unspecified[ICD10: N92.6] Josefa TALAMANTES DO [facility] CPT-4: 56459 06/06/2017 ([id number]) OFFICE/OUTPATIENT VISIT EST Diagnosis: Irregular menstruation, unspecified[ICD10: N92.6] Josefa TALAMANTES DO [facility] CPT-4: 36072 01/04/2017 ([id number]) PREV VISIT EST AGE 18-39 Diagnosis: Encounter for general adult medical examination without abnormal findings[ICD10: Z00.00] Diagnosis: Encounter for gynecological examination (general) (routine) without abnormal findings[ICD10: Z01.419] Diagnosis: Gastro-esophageal reflux disease without esophagitis[ICD10: K21.9] Diagnosis: Dysphagia, pharyngeal phase[ICD10: R13.13] Josefa TALAMANTES DO [facility] CPT-4: 20079 10/18/2016 ([id number]) OFFICE/OUTPATIENT VISIT EST Diagnosis: Irregular menstruation, unspecified[ICD10: N92.6] Josefa TALAMANTES DO [facility] CPT-4: 41524 10/12/2016 ([id number]) OFFICE/OUTPATIENT VISIT EST Diagnosis: Fever, unspecified[ICD10: R50.9] Diagnosis: Influenza due to identified novel influenza A virus with other respiratory manifestations[ICD10: J09.X2] Catrina TALAMANTES DO [facility] CPT-4: 14239 08/08/2016 ([id number]) OFFICE/OUTPATIENT VISIT EST Diagnosis: Irregular menstruation, unspecified[ICD10: N92.6] Josefa TALAMANTES DO [facility] CPT-4: 21398 07/25/2016 ([id number]) OFFICE/OUTPATIENT VISIT EST Diagnosis: Right upper quadrant pain[ICD10: R10.11] Diagnosis: Unspecified abdominal pain[ICD10: R10.9] Josefa TALAMANTES DO [facility] CPT-4: 82032 05/15/2016 ([id number]) OFFICE/OUTPATIENT VISIT EST Diagnosis: Irregular menstruation, unspecified[ICD10: N92.6] Josefa TALAMANTES DO [facility] CPT-4: 15602 05/03/2016 ([id number]) OFFICE/OUTPATIENT VISIT EST Diagnosis: Irregular menstruation, unspecified[ICD10: N92.6] Josefa TALAMANTES DO [facility] CPT-4: 72767 02/20/2016 OFFICE/OUTPATIENT VISIT EST Diagnosis: Cutaneous abscess of buttock[ICD10: L02.31] Kitty Caldera JOSEFA TALAMANTES DO [facility] CPT-4: 29922 12/23/2015 ([id number]) OFFICE/OUTPATIENT VISIT EST Diagnosis: Irregular menstruation, unspecified[ICD10: N92.6] Josefa Vinita TALAMANTES DO [facility] CPT-4: 04450 11/07/2015 ([id number]) OFFICE/OUTPATIENT VISIT EST Diagnosis: Irregular menstruation, unspecified[ICD10: N92.6] Josefa Vinita TALAMANTES [facility] CPT-4: 25731 08/01/2015 ([id number]) OFFICE/OUTPATIENT VISIT EST Diagnosis: Irregular menstruation, unspecified[ICD10: N92.6] Josefa TALAMANTES DO [facility] CPT-4: 75500 05/11/2015 ([id number]) OFFICE/OUTPATIENT VISIT EST Diagnosis: Irregular menstruation, unspecified[ICD10: N92.6] Josefa TALAMANTES DO [facility] CPT-4: 28180 02/16/2015 OFFICE/OUTPATIENT VISIT EST Diagnosis: SINUSITIS, ACUTE[ICD9: 461.9] Malgorzata TALAMANTES DO [facility] CPT-4: 05186 01/26/2015 ([id number]) OFFICE/OUTPATIENT VISIT EST Diagnosis: IRREGULAR MENSTRUATION[ICD9: 626.4] Josefa TALAMANTES [facility] CPT-4: 60001 11/29/2014 ([id number]) OFFICE/OUTPATIENT VISIT EST Diagnosis: IRREGULAR MENSTRUATION[ICD9: 626.4] Josefa TALAMANTES DO [facility] CPT-4: 87930 09/09/2014 ([id number]) OFFICE/OUTPATIENT VISIT EST Diagnosis: IRREGULAR MENSTRUATION[ICD9: 626.4] Diagnosis: General counseling and advice on contraceptive management[ICD9: V25.09] Diagnosis: Anxiety and depression[ICD9: 300.4] Malgorzata TALAMANTES DO [facility] CPT-4: 03782 06/16/2014 OFFICE/OUTPATIENT VISIT EST Diagnosis: Right upper quadrant pain[ICD9: 789.01] Malgorzata TALAMANTES DO [facility] CPT-4: 94846 01/28/2014 OFFICE/OUTPATIENT VISIT EST Diagnosis: Right upper quadrant pain[ICD9: 789.01] Malgorzata TALAMANTES DO [facility] CPT-4: 40039 12/10/2013 OFFICE/OUTPATIENT VISIT EST Diagnosis: Anxiety and depression[ICD9: 300.4] Malgorzata TALAMANTES DO [facility] CPT-4: 86539 10/20/2013 OFFICE/OUTPATIENT VISIT EST Diagnosis: Menorrhagia[ICD9: 626.2] Malgorzata [employer] [facility] CPT-4: 85845 10/07/2013 OFFICE/OUTPATIENT VISIT EST Diagnosis: IRREGULAR MENSTRUATION[ICD9: 626.4] Malgorzata TALAMANTES DO [facility] CPT-4: 53862 09/15/2013 OFFICE/OUTPATIENT VISIT EST Diagnosis: HEMATURIA NOS[ICD9: 599.70] Diagnosis: Abdominal discomfort in right upper quadrant[ICD9: 789.01] Malgorzata TALAMANTES DO [employer] CPT-4: 06731 06/24/2013 ([id number]) OFFICE/OUTPATIENT VISIT EST Diagnosis: ABDOMINAL PAIN[ICD9: 789.00] Diagnosis: GERD[ICD9: 530.81] Josefa Thadmamadou JOSEFA SergioMaria Teresa VINITA [facility] CPT-4: 35510 03/05/2013 OFFICE/OUTPATIENT VISIT EST Diagnosis: General counseling and advice on contraceptive management[ICD9: V25.09] Diagnosis: IRREGULAR MENSTRUATION[ICD9: 626.4] Malgorzata TALAMANTES [employer] [facility] CPT-4: 37870 02/09/2013 ([id number]) OFFICE/OUTPATIENT VISIT EST Justine TALAMANTSE DO [employer] CPT-4: 74906 09/08/2010 ([id number]) OFFICE/OUTPATIENT VISIT EST Justine Jordan JOSEFA TALAMANTES DO [facility] CPT-4: 90272 07/24/2010 Plan of Care Planned Activity Notes Codes Status Date Appointment: [facility] [phone] [facility] [facility] 06/15/2019 Visit Diagnosis Plan: Dysuria Discussion: due to recur rent pain and worsening symptoms, rocephin 1 gm given in office. will send urine off for culture and call on saturday if any changes needed. instructed to push fluids through the w eekend and go to urgent care with any worsening. ICD-9 : 788.1 ICD-10 : R30.0 06/05/2019 Appointment: Keyanna Mejía [address] [id number] FOLLOW UP 06/05/2019 Visit Diagnosis Plan: Left [...] : M25.532 03/16/2019 Appointment: Keyanna Mejía [address] [id number] [facility] Follow Up 03/16/2019 Appointment: Josefa Talamantes WPtel: [address] [place] [address] [place] UA 03/02/2019 Appointment: Josefa Talamantes WPtel: [phone] [place], [place] [phone] [place] INJECTION 02/16/2019 Appointment: Josefa Talamantes WPtel: [address] [place], [place] [phone] [place] INJECTION 05/21/2018 Visit Diagnosis Plan: Diseases of lips Discussion: ref erral to be sent to dr. galloway for evaluation of mass for possible debridement. instructed patient to apply warm compresses to lip until seen. ICD-9 : 528.5 ICD-10 : K13.0 03/03/2018 Visit Diagnosis Plan: Irregular menstruation, unspecif ied Discussion: urine performed in office and negative. 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 and bring back to office [...] : 241.0 ICD-10 : E04.1 03/03/2018 Appointment: Jose Mejíayskaterina Ventura [address] [place], [place] [id number] [place] ACUTE ILLNESS 03/03/2018 Patient Education: Patient Medication Summary Completed 03/03/2018 Care Plan: US EXAM OF HEAD AND NECK thyroid LOIN C : 76347-5 Pending 03/03/2018 Appointment: Josefa Talamantes WPtel: [phone] [place], [place] [phone] [place] CANCELED 02/27/2018 Appointment: Josefa Talamantes WPtel: [phone] [place], [place] [id number] [place] INJECTION 11/26/2017 Patient Education: Patient Medication Summary Completed 11/26/2017 Appointment: Josefa Talamantes WPtel: [address] [place], [place] [phone] [place] INJECTION 08/27/2017 Patient Education: Patient Medication Summary Completed 08/27/2017 Appointment: Josefa Talamantes WPtel: [address] [place], [place] [id number] [place] INJECTION 06/06/2017 Patient Education: Patient Medication Summary Completed 06/06/2017 Appointment: Josefa Talamantes WPtel: [address] [place], [place] [id number] [place] INJECTION 01/04/2017 Patient Education: Patient Medication Summary Completed 01/04/2017 Appointment: Josefa Talamantes WPtel: [address] [place], [place] [id number] [place] 11/19 lm `sl 11/21 lm `sl NO SHOW 11/22/19 Patient Education: Patient Medication Summary Completed 10/22/2016 Care Plan: US EXAM OF HEAD AND NECK Thyroid Ultrasound LOIN C : 48176-3 Pending 10/22/2016 Visit Diagnosis Plan: Gastro-esophageal reflux [...] : R13.13 10/18/2016 Appointment: Josefa Talamantes WPtel: [address] [place], [place] [phone] [place] 10/17 lm ` Annual Well Visit 10/18/2016 Patient Education: Patient Medication Summary Completed 10/18/2016 Appointment: Josefa Talamantes WPtel: [address] [place], [place] [phone] [place] INJECTION 10/12/2016 Patient Education: Patient Medication Summary Completed 10/12/2016 Visit Diagnosis Plan: Influenza due to i dentified novel influenza A virus with other respiratory manifestations Discussion: Flu A positive Rx as above Supportive care otherwise Contagious precautions discussed Notify kids' provider of exposure for their instructions ICD-9 : 488.02 ICD-10 : J09.X2 08/08/2016 Appointment: Catrina Bran [address] [place] [address] ACUTE ILLNESS 08/08/2016 Patient Education: Patient Medication Summary Completed 08/08/2016 Appointment: Josefa Talamantes WPtel: [address] [place], [place] [phone] [place] INJECTION 07/25/2016 Patient Education: Patient Medication Summary Completed 07/25/2016 Visit Plan: Finish abx and then recultur e 48hrs after completion Add levsin and zorvolex 05/15/2016 Appointment: Josefa Talamantes WPtel: [address] [place], [place] [phone] [place] 05/14 lm `sl 05/15 confirmed~ Hospital Follow Up 0 05/15/2016 Patient Education: Patient Medication Summary Completed 05/15/2016 Appointment: Catrina Bran [address] [place], [place] [phone] 05/09 admitted into the hospital last night~sl ACUTE ILLNESS 05/09/2016 Appointment: Josefa Talamantes WPtel: [address] [place], [place] [phone] [place] INJECTION 05/03/2016 Patient Education: Patient Medication Summary Completed 05/03/2016 Appointment: Josefa Talamantes WPtel: [address] [place], [place] [phone] [place] INJECTION 02/20/2016 Patient Education: Patient Medication Summary Completed 02/20/2016 Visit Plan: ERx for Bactrim and Bactroba n Called to [facility] Ultram 50mg 1 po q 4-6 hours prn pain #20 Warm moist heat to area qid Watch for s/s of worsening, go to over weekend Discussed SE of meds including s/s of SJS which would require an ER visit C&S obtained 12/23/2015 Appointment: Kitty Caldera WPtel: [address] [place], [place] [phone] ACUTE ILLNESS 12/23/2015 Patient Education: Patient Medication Summary Completed 12/23/2015 Appointment: Josefa Talamantes WPtel: [address] [place], [place] [phone] [place] INJECTION 11/07/2015 Patient Education: Patient Medication Summary Completed 11/07/2015 Appointment: Josefa Talamantes WPtel: [address] [place], [place] [id number] [place] INJECTION 08/01/2015 Patient Education: Patient Medication Summary Completed 08/01/2015 Appointment: Josefa Talamantes WPtel: [address] [place], [place] [id number] [place] INJECTION 05/11/2015 Patient Education: Patient Medication Summary Completed 05/11/2015 Appointment: Malgorzata Islas WPtel: [address] [place], [place] [phone] [place] PAP 04/05/2015 Appointment: Josefa Talamantes WPtel: [address] [place], [place] [phone] [place] INJECTION 02/16/2015 Patient Education: Patient Medication Summary Completed 02/16/2015 Visit Plan: Daily nasal saline rinses Fl onase nasal spray and daily Zyrtec Medrol dose pack Z-jhonathan as directed 01/26/2015 Appointment: Malgorzata Islas WPtel: [address] [place], [place] [phone] ACUTE ILLNESS 01/26/2015 Patient Education: Patient Medication Summary Completed 01/26/2015 Appointment: Josefa Talamantes WPtel: [address] [place], [place] [phone] [place] INJECTION 11/29/2014 Patient Education: Patient Medication Summary Completed 11/29/2014 Appointment: Josefa Talamantes WPtel: [address] [place], [place] [phone] [place] INJECTION 09/09/2014 Patient Education: Patient Medication Summary Completed 09/09/2014 Appointment: Malgorzata Islas WPtel: [address] [place], [place] [phone] [place] FOLLOW UP 06/16/2014 Patient Education: Patient Medication Summary Completed 06/16/2014 Appointment: Malgorzata Islas WPtel: [address] [place], [place] [phone] 06/02/14 appointment scheduled 06/03/14 no showed PAP 06/03/2014 Appointment: Malgorzata Islas WPtel: [address] [place], [place] [phone] [place] FOLLOW UP 01/28/2014 Patient Education: Patient Medication Summary Completed 01/28/2014 Care Plan: COM[place] : [address]-6 Ordered 01/28/2014 Care Plan: AMYLASE Pending 4 Appointment: Malgorzata Islas WPtel: [address] [place], [place] [phone] [place] FOLLOW UP 12/10/2013 Patient Education: Patient Medication Summary Completed 12/10/2013 Appointment: Malgorzata Islasteashely: [address] [place], [place] [phone] 11/11 vm 11/12 No Show FOLLOW UP 11/12/2013 Appointment: Malgorzata Islas WPtel: [address] [place], [place] [phone] [place] FOLLOW UP 10/20/2013 Patient Education: Patient Medication Summary Completed 10/20/2013 Visit Plan: Quantitative Hcg and CBC tod ay. Transvaginal/Transabdominal sonogram stat Discussed with [facility] [facility] and [facility] so will recheck in 1week as long as not worsening 10/07/2013 Appointment: Malgorzata Islas WPtel: [address] [place] [address] ACUTE ILLNESS 10/07/2013 Patient Education: Patient Medication Summary Completed 10/07/2013 Appointment: Malgorzata Islas WPtel: [address] [place] [address] ACUTE ILLNESS 09/15/2013 Patient Education: Patient Medication Summary Completed 09/15/2013 Appointment: Malgorzata Islas WPtel: [address] [place] [address] ACUTE ILLNESS 06/24/2013 Patient Education: Patient Medication Summary Completed 06/24/2013 Appointment: Malgorzata Islas WPtel: [address] [place] [address] appt was scheduled today then patient no showed the visit ACUTE ILLNESS 05/21/2013 Visit Plan: Check CMP, CBC, UA CT scan o f abdomen Omeprazole 03/05/2013 Appointment: Josefa Talamantes WPtel: [address] [place], [place] [id number] ACUTE ILLNESS 03/05/2013 Appointment: Josefa Talamantes WPtel: [address] [place], [place] [phone] 03/02 canceled, wrong patient FOLLOW UP Patient Education: Patient Medication Summary Completed 03/05/2013 Appointment: Malgorzata Islas WPtel: [address] [place] [address] ACUTE ILLNESS 02/09/2013 Patient Education: Patient Medication Summary Completed 02/09/2013 Appointment: Justine Ortega WPtel: [address] [place] [address] ACUTE ILLNESS 09/08/2010 Patient Education: Patient Medication Summary Completed 09/08/2010 Appointment: Justine Ortega WPtel: [address] [place] [address] [place] PAP 08/08/2010 Appointment: Justine Ortega WPtel: [address] [place] [address] ACUTE ILLNESS 07/24/2010 Patient Education: Patient Medication Summary Completed 07/24/2010 Visit Plan: All warts shaved with 11-rekha de scalpel and then cryotherapy x3 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 [id number] [facility] Referral Initiated Referral: Referral Initiated Instructions [...] CBC today. Transvaginal/Transabdominal sonogram stat Discussed with [facility] [address] [facility] and [facility] 343 so will recheck in [...]
--- OUTSIDE RECORDS SUMMARY | 2019-12-11 22:04 | XMS REPORT | CCD ---
Author Author Brenda Talamantes D.O. Organization [facility]SEFA TALAMANT[facility] DO [facility] Address [address] [place] [address] Phone Care Team Providers Care Supervisor Instrument Repair Name Role Phone Josefa Talamantes D.O., PP Unavailable CCM Unavailable Summary Purpose Interface Exchange Insurance Providers Payer name Policy type / Coverage type Covered democrat ID Effective Begin Date Effective End Date [employer] [facility] Commercial Insurance [id number] Unknown Family History Family History data not found Social History Social History Element Codes Description Effective Dates Tobacco history SNOMED CT: 796049101 Unknown if ever smoked 01/12 Allergies, Adverse [...] Bactrim DS 800 mg-160 mg tablet RxNorm: 567274 1 Tablet(s) Oral two times a day 06/08/2019 06/13/2019 Inactive Bactrim DS 800 mg-160 mg tablet RxNorm: 604622 1 Tablet(s) Oral two times a day 06/08/2019 06/07/2019 Inactive ibuprofen 800 mg tablet RxNorm: 498808 1 Tablet(s) Oral Q8H as needed 03/16/2019 06/05/2019 Inactive Cipro 500 mg tablet RxNorm: 170798 1 Tablet(s) Oral two times a day 03/04/2019 03/11/2019 Inactive Cipro 500 mg tablet RxNorm: 470287 1 Tablet(s) Oral two times a day 03/04/2019 03/03/2019 Inactive Macrobid 100 mg capsule RxNorm: 217999 1 Capsule(s) Oral two ti mes a day 02/16/2019 02/15/2019 Inactive Macrobid 100 mg capsule RxNorm: 828887 1 Capsule(s) Oral two ti mes a [...] 11/24/2017 Inactive Pepcid 40 mg tablet RxNorm: 570967 1 Tablet(s) PO QD 10/18/201603/02 Inactive Depo-Provera 150 mg/mL intramuscular suspension RxNorm: 1000 128 Milliliter(s) 1 Milliliter(s) IM 10/10/2016 06/04/2017 Inactive Tamiflu 75 mg capsule RxNorm: 911568 1 Capsule(s) PO BID 08/08/2016 0 08/12/2016 Inactive Levsin 0.125 mg tablet RxNorm: 5151677 1 Tablet(s) PO TID for fl ank pain 05/15/2016 10/17/2016 Inactive Bactrim DS 800 mg-160 mg tablet RxNorm: 898885 1 Tablet(s) PO BID 0 12/23/2015 01/01/2016 Inactive mupirocin 2 % topical ointment RxNorm: 338043 Application TOP TID 0 12/23/2015 12/29/2015 Inactive Depo-Provera 150 mg/mL intramuscular suspension RxNorm: 1000 128 Milliliter(s) 1 Milliliter(s) IM 11/08/2015 10/09/2016 Inactive Xanax 0.25 mg tablet RxNorm: 999159 TAKE ONE-HALF TO ON E TABLET BY MOUTH NEEDED FOR ANXIETY 04/11/2015 05/10/2015 Inactive Generic For:X ANAX 0.25 MG TABLET 04/11/2015 2:54:57 PM Depo-Provera 150 mg/mL intramuscular suspension RxNorm: 1000 128 Milliliter(s) 1 Milliliter(s) IM 02/15/2015 11/07/2015 Inactive azithromycin 250 mg tablet RxNorm: 777540 2 Tablet(s) P O today, then one tablet on days 2 - 5 01/26/2015 12/22/2015 Inactive Medrol (Jhonathan) 4 mg tablets in a dose pack RxNorm: 172665 Tablet(s) P O 01/26/2015 12/22/2015 Inactive Depo-Provera 150 mg/mL intramuscular suspension RxNorm: 1000 128 1 Milliliter(s) IM 09/06/2014 02/15/2015 Inactive Xanax 0.25 mg tablet RxNorm: 476349 1/2 - 1 Tablet(s) PO as nee ded for anxiety 06/16/2014 04/12/2015 Inactive Zoloft 50 mg tablet RxNorm: 360456 1 Tablet(s) PO QD 06/16/201412/21 Inactive Flexeril [...] 2014 Inactive Xanax 0.25 mg tablet RxNorm: 500774 1/2 - 1 Tablet(s) PO as nee ded for anxiety 01/28/2014 06/15/2014 Inactive naproxen 500 mg tablet RxNorm: 625614 1 Tablet(s) PO BID 12/10/2013 0 01/08/2014 Inactive Zoloft 50 mg tablet RxNorm: 628413 1 Tablet(s) PO QD 12/10/201304/08 Inactive Xanax 0.25 mg tablet RxNorm: 459066 1/2 - 1 Tablet(s) PO as nee ded for anxiety 12/10/2013 01/27/2014 Inactive Xanax 0.25 mg tablet RxNorm: 740520 1 Tablet(s) PO Q8H 10/20/2013 Inactive Zoloft 50 mg tablet RxNorm: 320735 1/2 Tablet(s) PO x 6 days then on1 tablet daily 10/20/2013 11/18/2013 Inactive Loestrin Fe 06/01 (28) 1 mg-20 mcg tablet RxNorm: 2202081 1 Table t(s) PO QD 10/20/2013 05/03/2014 Inactive phenazopyridine 100 mg tablet RxNorm: 9004895 1 Tablet(s) PO Q8H 06/26/2013 Inactive Macrobid 100 mg capsule RxNorm: 797794 1 Capsule(s) PO BID 06/25/19 14 07/04/2013 Inactive phenazopyridine 100 mg tablet RxNorm: 8031829 1 Tablet(s) PO Q8H 06/24/2013 Inactive Macrobid 100 mg capsule RxNorm: 805832 1 Capsule(s) PO BID 07/25/19 11 08/02/2010 Inactive Apri 0.15 mg-30 mcg tablet RxNorm: 580298 1 Tablet(s) PO QD As directed. No Start Date 06/23/2013 Inactive omeprazole 40 mg capsule,delayed release RxNorm: 665150 1 Capsule(s) PO QD for stomach No Start Date 06/23/2013 Inactive naproxen 500 mg tablet RxNorm: 165402 1 Tablet(s) PO BID No Start D ate 06/15/2014 Inactive hydrocodone 10 mg-acetaminophen 325 mg tablet RxNorm: 726899 Tablet(s) PO as needed for pain No Start Date 12/22/2015 Inactive Zoloft 50 mg tablet RxNorm: 731620 1 Tablet(s) PO QD No Start Date Inactive hydrocodone 5 mg-acetaminophen 325 mg tablet RxNorm: 965893 1 Tablet(s) PO QID as needed for pain No Start Date 09/14/2013 Inactive Medication Administered No Medication Administered data Immunizations No Immunization data Results Observation Observation Code Item Item Code Result Date S ervice Location LIPASE 36349 LIPASE 14 IU/L 01/28/2014 Unknown COMPLETE BLOOD COUNT [id number] WBC 6.5 10e9/L 01/29/20 14 Unknown COMPLETE BLOOD COUNT [id number] RBC 4.54 10e12/L 2013 Unknown COMPLETE BLOOD COUNT [id number] HGB 12.1 g/dL 4 Unknown COMPLETE BLOOD COUNT [id number] HCT DET 38.0 % 4 Unknown COMPLETE BLOOD COUNT [id number] MCV 83.7 fL 4 Unknown COMPLETE BLOOD COUNT [id number] MCH 26.7 pg 4 Unknown COMPLETE BLOOD COUNT [id number] MCHC 31.8 g/dL 4 Unknown COMPLETE BLOOD COUNT [id number] PLT 218 10e9/L 01/29/20 14 Unknown COMPLETE BLOOD COUNT [id number] MPV 12.8 fL 4 Unknown COMPLETE BLOOD COUNT [id number] RACHNA % 56.5 % 4 Unknown COMPLETE BLOOD COUNT [id number] LY % 32.3 % 4 Unknown COMPLETE BLOOD COUNT [id number] MON % 8.6 % 4 Unknown COMPLETE BLOOD COUNT [id number] EOS % 2.1 % 4 Unknown COMPLETE BLOOD COUNT [id number] BASO % 0.5 % 4 Unknown COMPLETE BLOOD COUNT [id number] RDW 18.4 % 4 Unknown COMPLETE BLOOD COUNT [id number] ABS RACHNA 3.67 10e9/L 014 Unknown COMPLETE BLOOD COUNT [id number] ABS LYMPH 2.10 10e9/L 014 Unknown COMPLETE BLOOD COUNT [id number] ABS MONO 0.56 10e9/L 014 Unknown COMPLETE BLOOD COUNT [id number] ABS EOS 0.14 10e9/L 014 Unknown COMPLETE BLOOD COUNT [id number] ABS BASO 0.03 10e9/L 014 Unknown COMPLETE BLOOD COUNT [id number] RDW-SD 55.5 fL 4 Unknown COMPREHENSIVE METABOLIC 65682 AST 13 U/L 2013 Unknown COMPREHENSIVE METABOLIC 88252 ALT 7 IU/L 2013 Unknown COMPREHENSIVE METABOLIC 01735 BUN 8 MG/DL 2013 Unknown COMPREHENSIVE METABOLIC 35322 ALBUMIN 4.5 GM/DL 2013 Unknown COMPREHENSIVE METABOLIC 76419 CHLORIDE 106 MMOL/L 01/28 Unknown COMPREHENSIVE METABOLIC 40860 BILI TOT 0.4 MG/DL 2013 Unknown COMPREHENSIVE METABOLIC 48884 ALK PHOS 55 U/L 2013 Unknown COMPREHENSIVE METABOLIC 20036 SODIUM 138 MMOL/L 01/28 Unknown COMPREHENSIVE METABOLIC 82589 CREATININE 0.73 MG/DL 01/11 Unknown COMPREHENSIVE METABOLIC 18723 CALCIUM 9.9 MG/DL 2013 Unknown COMPREHENSIVE METABOLIC 19475 POTASSIUM 3.8 MMOL/L 01/28 Unknown COMPREHENSIVE METABOLIC 14387 PROT TOT 7.4 GM/DL 2013 Unknown COMPREHENSIVE METABOLIC 75956 Glucose 96 MG/DL 2013 Unknown COMPREHENSIVE METABOLIC 07165 BICARB 27 MMOL/L 2013 Unknown COMPREHENSIVE METABOLIC 02910 ANION GAP 5 MEQ/L 2013 Unknown AMYLASE 84321 AMYLASE 42 IU/L 01/28/2014 Unknown GFR CALC 5046885 GFR AA >60 ML/MIN 01/28/2014 Unknown GFR CALC 2799931 GFR NON-AA >60 ML/MIN 01/28/2014 Unknown Procedures Procedure Codes Date URINE CULTURE/ COLONY COUNT CPT-4: 12128 06/15/2019 URINALYSIS NONAUTO W/O SCOPE CPT-4: 93275 06/05/2019 CEFTRIAXONE SODIUM INJECTION CPT-4: J0696 06/05/2019 THER/PROPH/DIAG INJ SC/IM CPT-4: 52227 06/05/2019 URINE CULTURE/ COLONY COUNT CPT-4: 09200 06/05/2019 URINE CULTURE/ COLONY COUNT CPT-4: 70020 03/02/2019 THER/PROPH/DIAG INJ SC/IM CPT-4: 93079 02/16/2019 URINE CULTURE/ COLONY COUNT CPT-4: 68352 02/16/2019 URINALYSIS NONAUTO W/O SCOPE CPT-4: 26714 02/16/2019 URINE TEST CPT-4: 89045 02/16/2019 THER/PROPH/DIAG INJ SC/IM CPT-4: 95699 05/21/2018 THER/PROPH/DIAG INJ SC/IM CPT-4: 73641 11/26/2017 THER/PROPH/DIAG INJ SC/IM CPT-4: 24987 08/27/2017 THER/PROPH/DIAG INJ SC/IM CPT-4: 88725 06/06/2017 URINALYSIS NONAUTO W/O SCOPE CPT-4: 87062 06/06/2017 GC/CHLAMYDIA DNA (BD-ProbeTe) CPT-4: 84160|05904 8 URINE CULTURE/ COLONY COUNT CPT-4: 39303 06/06/2017 THER/PROPH/DIAG INJ SC/IM CPT-4: 52644 01/04/2017 SPECIMEN HANDLING OFFICE-LAB CPT-4: 27301 10/18/2016 THER/PROPH/DIAG INJ SC/IM CPT-4: 03560 10/12/2016 INFLUENZA ASSAY W/OPTIC CPT-4: 80689 08/08/2016 THER/PROPH/DIAG INJ SC/IM CPT-4: 05949 07/25/2016 THER/PROPH/DIAG INJ SC/IM CPT-4: 34382 05/03/2016 THER/PROPH/DIAG INJ SC/IM CPT-4: 92533 02/20/2016 URINE TEST CPT-4: 35228 02/20/2016 AEROBIC WOUND CULTURE & STN CPT-4: 05585 12/23/2015 THER/PROPH/DIAG INJ SC/IM CPT-4: 08824 11/07/2015 URINE TEST CPT-4: 55312 11/07/2015 THER/PROPH/DIAG INJ SC/IM CPT-4: 19059 08/01/2015 THER/PROPH/DIAG INJ SC/IM CPT-4: 42016 05/11/2015 THER/PROPH/DIAG INJ SC/IM CPT-4: 68913 02/16/2015 THER/PROPH/DIAG INJ SC/IM CPT-4: 06620 11/29/2014 THER/PROPH/DIAG INJ SC/IM CPT-4: 17675 09/09/2014 URINE TEST CPT-4: 73380 06/16/2014 THER/PROPH/DIAG INJ SC/IM CPT-4: 42219 06/16/2014 ROUTINE VENIPUNCTURE CPT-4: 22262 10/07/2013 COMPLETE CBC W/AUTO DIFF WBC CPT-4: 79393 10/07/2013 CHORIONIC GONADOTROPIN TEST CPT-4: 45618 10/07/2013 URINE TEST CPT-4: 00929 09/15/2013 URINALYSIS NONAUTO W/O SCOPE CPT-4: 24915 06/24/2013 URINE CULTURE/ COLONY COUNT CPT-4: 81018 06/24/2013 URINE TEST CPT-4: 92120 09/08/2010 URINALYSIS NONAUTO W/O SCOPE CPT-4: 92822 07/24/2010 URINE CULTURE/ COLONY COUNT CPT-4: 19378 07/24/2010 DESTRUCT PREMALG LESION (Cryosurgery) CPT-4: 42427 DESTRUCT PREMALG LES 2-14 CPT-4: 87305 03/08/2010 Vital Signs Date Vital 06/05/2019 Blood Pressure 1: 131/82 Code: 8480-6 BMI: 26.3 Code: 09591-0 Heart Rate 1: 109 bpm Height: 5'9" Respiratory Rate: 16 bpm SpO2: 99% Tempera ture: 36.7 (C) / 98.1 (F) Weight: 178 lbs 03/16/2019 Blood Pressure 1: 132/86 Code: 8480-6 Heart Rate 1: 73 bpm SpO2: 99% Temperature: 36.6 (C) / 97.9 (F) Weight: 158 lbs 03/03/2018 Blood Pressure 1: 120/88 Code: 8480-6 BMI: 23.9 Code: 63949-3 Heart Rate 1: 81 bpm Height: 5'9" Respiratory Rate: 18 bpm SpO2: 99% Tempera ture: 36.1 (C) / 97.0 (F) Weight: 162 lbs 10/18/2016 Blood Pressure 1: 108/78 Code: 8480-6 BMI: 22.6 Code: 53186-6 Heart Rate 1: 100 bpm Height: 5'9" Respiratory Rate: 20 bpm SpO2: 98% Tempera ture: 37.1 (C) / 98.8 (F) Weight: 153 lbs 08/08/2016 Blood Pressure 1: 114/78 Code: 8480-6 Heart Rate 1: 102 bpm Respiratory Rate: 20 bpm SpO2: 98% Temperature: 36.4 (C) / 97.6 (F) We ight: 152 lbs 05/15/2016 Blood Pressure 1: 124/80 Code: 8480-6 BMI: 23.2 Code: 26282-2 Heart Rate 1: 100 bpm Height: 5'9" Respiratory Rate: 20 bpm Temperature: 37 .0 (C) / 98.6 (F) Weight: 157 lbs 12/23/2015 Blood Pressure 1: 124/78 Code: 8480-6 BMI: 23.0 Code: 53213-0 Heart Rate 1: 92 bpm Height: 5'9" Respiratory Rate: 20 bpm SpO2: 97% Tempera ture: 36.9 (C) / 98.5 (F) Weight: 156 lbs 01/26/2015 Blood Pressure 1: 118/78 Code: 8480-6 BMI: 21.3 Code: 19011-5 Heart Rate 1: 100 bpm Height: 5'9" Respiratory Rate: 20 bpm SpO2: 97% Tempera ture: 36.6 (C) / 97.8 (F) Weight: 144 lbs 06/16/2014 Blood Pressure 1: 118/78 Code: 8480-6 BMI: 23.5 Code: 69386-6 Heart Rate 1: 78 bpm Height: 5'9" Respiratory Rate: 18 bpm Temperature: 36 .1 (C) / 97.0 (F) Weight: 159 lbs 01/28/2014 Blood Pressure 1: 124/78 Code: 8480-6 BMI: 23.2 Code: 97409-9 Heart Rate 1: 88 bpm Height: 5'9" Respiratory Rate: 22 bpm Temperature: 36 .1 (C) / 97.0 (F) Weight: 157 lbs 12/10/2013 Blood Pressure 1: 124/70 Code: 8480-6 BMI: 23.0 Code: 19178-0 Heart Rate 1: 82 bpm Height: 5'9" Respiratory Rate: 20 bpm Temperature: 36 .2 (C) / 97.2 (F) Weight: 156 lbs 10/20/2013 Blood Pressure 1: 118/82 Code: 8480-6 Heart Rate 1: 84 bpm Respiratory Rate: 22 bpm Temperature: 36.5 (C) / 97.7 (F) Weight: 150 lbs 10/07/2013 Blood Pressure 1: 120/80 Code: 8480-6 BMI: 22.2 Code: 64294-6 Heart Rate 1: 68 bpm Height: 5'9" Respiratory Rate: 22 bpm Temperature: 36 .2 (C) / 97.2 (F) Weight: 150 lbs 09/15/2013 Blood Pressure 1: 118/68 Code: 8480-6 BMI: 22.0 Code: 42297-1 Heart Rate 1: 78 bpm Height: 5'9" Respiratory Rate: 20 bpm Temperature: 36 .1 (C) / 97.0 (F) Weight: 149 lbs 06/24/2013 Blood Pressure 1: 112/74 Code: 8480-6 Heart Rate 1: 74 bpm Respiratory Rate: 20 bpm Temperature: 36.6 (C) / 97.9 (F) Weight: 150 lbs 03/05/2013 Blood Pressure 1: 126/88 Code: 8480-6 BMI: 23.5 Code: 23555-2 Heart Rate 1: 80 bpm Height: 5'9" Respiratory Rate: 20 bpm Temperature: 36 .6 (C) / 97.9 (F) Weight: 159 lbs 02/09/2013 Blood Pressure 1: 110/68 Code: 8480-6 BMI: 21.9 Code: 49810-9 Heart Rate 1: 74 bpm Height: 5'9" Respiratory Rate: 22 bpm Temperature: 36 .8 (C) / 98.2 (F) Weight: 148 lbs 09/08/2010 Blood Pressure 1: 124/90 Code: 8480-6 BMI: 21.4 Code: 73248-3 Height: 5'10" Temperature: 36.4 (C) / 97.6 [...] painful Encounters Encounter Performer Location Codes Date ([id number]) NURSE/OUTPATIENT VISIT EST Diagnosis: Urinary tract infection[ICD10: N39.0] Josefa TALAMANTES [place] CPT-4: 17841 06/15/2019 ([id number]) OFFICE/OUTPATIENT VISIT EST Diagnosis: Dysuria[ICD10: R30.0] Diagnosis: Pelvic pain in female[ICD10: R10.2] Keyanna TALAMANTES [place] CPT-4: 23563 06/05/2019 ([id number]) OFFICE/OUTPATIENT VISIT EST Diagnosis: Left wrist pain[ICD10: M25.532] Diagnosis: Swelling of left upper extremity[ICD10: M79.89] Keyanna TALAMANTES DO [place] CPT-4: 67234 03/16/2019 ([id number]) NURSE/OUTPATIENT VISIT EST Diagnosis: Urinary tract infection[ICD10: N39.0] Josefa TALAMANTES [place] CPT-4: 91613 03/02/2019 ([id number]) NURSE/OUTPATIENT VISIT EST Diagnosis: Irregular menstruation, unspecified[ICD10: N92.6] Diagnosis: Urinary tract infection[ICD10: N39.0] Josefa TALAMANTES [place] CPT-4: 57699 02/16/2019 ([id number]) NURSE/OUTPATIENT VISIT EST Diagnosis: Irregular menstruation, unspecified[ICD10: N92.6] Josefa TALAMANTES DO [facility] CPT-4: 30140 05/21/2018 ([id number]) OFFICE/OUTPATIENT VISIT EST Diagnosis: Irregular menstruation, unspecified[ICD10: N92.6] Diagnosis: Diseases of lips[ICD10: K13.0] Diagnosis: 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] Keyanna TALAMANTES DO [facility] CPT-4: 03732 03/03/2018 ([id number]) NURSE/OUTPATIENT VISIT EST Diagnosis: Irregular menstruation, unspecified[ICD10: N92.6] Josefa TALAMANTES DO [facility] CPT-4: 51913 11/26/2017 ([id number]) OFFICE/OUTPATIENT VISIT EST Diagnosis: Irregular menstruation, unspecified[ICD10: N92.6] Josefa TALAMANTES DO [facility] CPT-4: 46146 08/27/2017 ([id number]) OFFICE/OUTPATIENT VISIT EST Diagnosis: Dysuria[ICD10: R30.0] Diagnosis: Irregular menstruation, unspecified[ICD10: N92.6] Josefa TALAMANTES DO [facility] CPT-4: 86740 06/06/2017 ([id number]) OFFICE/OUTPATIENT VISIT EST Diagnosis: Irregular menstruation, unspecified[ICD10: N92.6] Josefa TALAMANTES DO [facility] CPT-4: 24431 01/04/2017 ([id number]) PREV VISIT EST AGE 18-39 Diagnosis: Encounter for general adult medical examination without abnormal findings[ICD10: Z00.00] Diagnosis: Encounter for gynecological examination (general) (routine) without abnormal findings[ICD10: Z01.419] Diagnosis: Gastro-esophageal reflux disease without esophagitis[ICD10: K21.9] Diagnosis: Dysphagia, pharyngeal phase[ICD10: R13.13] Josefa TALAMANTES DO [facility] CPT-4: 14811 10/18/2016 ([id number]) OFFICE/OUTPATIENT VISIT EST Diagnosis: Irregular menstruation, unspecified[ICD10: N92.6] Josefa TALAMANTES DO [facility] CPT-4: 28474 10/12/2016 ([id number]) OFFICE/OUTPATIENT VISIT EST Diagnosis: Fever, unspecified[ICD10: R50.9] Diagnosis: Influenza due to identified novel influenza A virus with other respiratory manifestations[ICD10: J09.X2] Catrina TALAMANTES DO [facility] CPT-4: 14396 08/08/2016 ([id number]) OFFICE/OUTPATIENT VISIT EST Diagnosis: Irregular menstruation, unspecified[ICD10: N92.6] Josefa TALAMANTES DO [facility] CPT-4: 46959 07/25/2016 ([id number]) OFFICE/OUTPATIENT VISIT EST Diagnosis: Right upper quadrant pain[ICD10: R10.11] Diagnosis: Unspecified abdominal pain[ICD10: R10.9] Josefa TALAMANTES DO [facility] CPT-4: 28753 05/15/2016 ([id number]) OFFICE/OUTPATIENT VISIT EST Diagnosis: Irregular menstruation, unspecified[ICD10: N92.6] Josefa TALAMANTES DO [facility] CPT-4: 57959 05/03/2016 ([id number]) OFFICE/OUTPATIENT VISIT EST Diagnosis: Irregular menstruation, unspecified[ICD10: N92.6] Josefa TALAMANTES DO [facility] CPT-4: 34997 02/20/2016 OFFICE/OUTPATIENT VISIT EST Diagnosis: Cutaneous abscess of buttock[ICD10: L02.31] Kitty Caldera JOSEFA TALAMANTES DO [facility] CPT-4: 67410 12/23/2015 ([id number]) OFFICE/OUTPATIENT VISIT EST Diagnosis: Irregular menstruation, unspecified[ICD10: N92.6] Josefa [place] TALAMANTES DO [facility] CPT-4: 21017 11/07/2015 ([id number]) OFFICE/OUTPATIENT VISIT EST Diagnosis: Irregular menstruation, unspecified[ICD10: N92.6] Josefa [place] TALAMANTES [facility] CPT-4: 25220 08/01/2015 ([id number]) OFFICE/OUTPATIENT VISIT EST Diagnosis: Irregular menstruation, unspecified[ICD10: N92.6] Josefa TALAMANTES DO [facility] CPT-4: 99806 05/11/2015 ([id number]) OFFICE/OUTPATIENT VISIT EST Diagnosis: Irregular menstruation, unspecified[ICD10: N92.6] Josefa TALAMANTES DO [facility] CPT-4: 36035 02/16/2015 OFFICE/OUTPATIENT VISIT EST Diagnosis: SINUSITIS, ACUTE[ICD9: 461.9] Malgorzata TALAMANTES DO [facility] CPT-4: 23167 01/26/2015 ([id number]) OFFICE/OUTPATIENT VISIT EST Diagnosis: IRREGULAR MENSTRUATION[ICD9: 626.4] Josefa TALAMANTES [facility] CPT-4: 73906 11/29/2014 ([id number]) OFFICE/OUTPATIENT VISIT EST Diagnosis: IRREGULAR MENSTRUATION[ICD9: 626.4] Josefa TALAMANTES DO [facility] CPT-4: 03852 09/09/2014 ([id number]) OFFICE/OUTPATIENT VISIT EST Diagnosis: IRREGULAR MENSTRUATION[ICD9: 626.4] Diagnosis: General counseling and advice on contraceptive management[ICD9: V25.09] Diagnosis: Anxiety and depression[ICD9: 300.4] Malgorzata TALAMANTES DO [facility] CPT-4: 74308 06/16/2014 OFFICE/OUTPATIENT VISIT EST Diagnosis: Right upper quadrant pain[ICD9: 789.01] Malgorzata TALAMANTES DO [facility] CPT-4: 71372 01/28/2014 OFFICE/OUTPATIENT VISIT EST Diagnosis: Right upper quadrant pain[ICD9: 789.01] Malgorzata TALAMANTES DO [facility] CPT-4: 56681 12/10/2013 OFFICE/OUTPATIENT VISIT EST Diagnosis: Anxiety and depression[ICD9: 300.4] Malgorzata TALAMANTES DO [facility] CPT-4: 25522 10/20/2013 OFFICE/OUTPATIENT VISIT EST Diagnosis: Menorrhagia[ICD9: 626.2] Malgorzata [facility] CPT-4: 33767 10/07/2013 OFFICE/OUTPATIENT VISIT EST Diagnosis: IRREGULAR MENSTRUATION[ICD9: 626.4] Malgorzata TALAMANTES DO [facility] CPT-4: 27612 09/15/2013 OFFICE/OUTPATIENT VISIT EST Diagnosis: HEMATURIA NOS[ICD9: 599.70] Diagnosis: Abdominal discomfort in right upper quadrant[ICD9: 789.01] Malgorzata TALAMANTES DO [facility] CPT-4: 02667 06/24/2013 ([id number]) OFFICE/OUTPATIENT VISIT EST Diagnosis: ABDOMINAL PAIN[ICD9: 789.00] Diagnosis: GERD[ICD9: 530.81] Josefa TALAMANTES [facility] CPT-4: 49382 03/05/2013 OFFICE/OUTPATIENT VISIT EST Diagnosis: General counseling and advice on contraceptive management[ICD9: V25.09] Diagnosis: IRREGULAR MENSTRUATION[ICD9: 626.4] Malgorzata TALAMANTES [facility] CPT-4: 02971 02/09/2013 ([id number]) OFFICE/OUTPATIENT VISIT EST Justine TALAMANTES DO [facility] CPT-4: 18597 09/08/2010 ([id number]) OFFICE/OUTPATIENT VISIT EST Justine TALAMANTES DO [facility] CPT-4: 61649 07/24/2010 Plan of Care Planned Activity Notes Codes Status Date Visit Diagnosis Plan: Dysuria Discussion: due to recur rent pain and worsening symptoms, rocephin 1 gm given in office. will send urine off for culture and call on saturday if any changes needed. instructed to push fluids through the w eekend and go to urgent care with any worsening. ICD-9 : 788.1 ICD-10 : R30.0 06/05/2019 Appointment: Keyanna Mejía [address] [place], [place] [email or web address] FOLLOW UP 06/05/2019 Visit Diagnosis Plan: Left [...] ICD-10 : M25.532 03/16/2019 Appointment: Keyanna Mejía [address] [place] [address] Hospital Follow Up 03/16/2019 Appointment: Josefa Talamantes WPtel: [address] [place] [address] US UA 03/02/2019 Appointment: Josefa Talamantes WPtel: [address] [place], [place] [phone] [place] INJECTION 02/16/2019 Appointment: Josefa Talamantes WPtel: [address] [place], [place] [phone] [place] INJECTION 05/21/2018 Visit Diagnosis Plan: Diseases of lips Discussion: ref erral to be sent to dr. galloway for evaluation of mass for possible debridement. instructed patient to apply warm compresses to lip until seen. ICD-9 : 528.5 ICD-10 : K13.0 03/03/2018 Visit Diagnosis Plan: Irregular menstruation, unspecif ied Discussion: urine performed in office and negative. 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 and bring back to [...] E04.1 03/03/2018 Appointment: Keyanna Mejía [address] [place] [phone] ACUTE ILLNESS 03/03/2018 Patient Education: Patient Medication Summary Completed 03/03/2018 Care Plan: US EXAM OF HEAD AND NECK thyroid LOIN C : 64558-0 Pending 03/03/2018 Appointment: Josefa Talamantes WPtel: [address] [place], [place] [phone] US CANCELED 02/27/2018 Appointment: Josefa Talamantes WPtel: [address] [place], [place] [phone] [place] INJECTION 11/26/2017 Patient Education: Patient Medication Summary Completed 11/26/2017 Appointment: Josefa Talamantes WPtel: [address] [place], [place] [phone] [place] INJECTION 08/27/2017 Patient Education: Patient Medication Summary Completed 08/27/2017 Appointment: Josefa Talamantes WPtel: [address] [place], [place] [phone] [place] INJECTION 06/06/2017 Patient Education: Patient Medication Summary Completed 06/06/2017 Appointment: Josefa Talamantes WPtel: [address] [place], [place] [phone] [place] INJECTION 01/04/2017 Patient Education: Patient Medication Summary Completed 01/04/2017 Appointment: Josefa Talamantes WPtel: [address] [place], [place] [phone] [place] 11/19 lm `sl 11/21 lm `sl NO SHOW 11/22/19 17 Patient Education: Patient Medication Summary Completed 10/22/2016 Care Plan: US EXAM OF HEAD AND NECK Thyroid Ultrasound LOIN C : 16738-1 Pending 10/22/2016 Visit Diagnosis Plan: Encounter for [...] : K21.9 10/18/2016 Appointment: Josefa Talamantes WPtel: [address] [place], [place] [id number] [place] 6/7 lm ` Annual Well Visit 10/18/2016 Patient Education: Patient Medication Summary Completed 10/18/2016 Appointment: Josefa Talamantes WPtel: [address] [place], [place] [id number] [place] INJECTION 10/12/2016 Patient Education: Patient Medication Summary Completed 10/12/2016 Visit Diagnosis Plan: Influenza due to i dentified novel influenza A virus with other respiratory manifestations Discussion: Flu A positive Rx as above Supportive care otherwise Contagious precautions discussed Notify kids' provider of exposure for their instructions ICD-9 : 488.02 ICD-10 : J09.X2 08/08/2016 Appointment: Catrina Bran [address] [place], [place] [id number] ACUTE ILLNESS 08/08/2016 Patient Education: Patient Medication Summary Completed 08/08/2016 Appointment: Josefa Talamantes WPtel: [address] [place], [place] [id number] [place] INJECTION 07/25/2016 Patient Education: Patient Medication Summary Completed 07/25/2016 Visit Plan: Finish abx and then recultur e 48hrs after completion Add levsin and zorvolex 05/15/2016 Appointment: Josefa Talamantes WPtel: [address] [place], [place] [id number] [place] 1/ lm `sl 05/15 confirmed~ Hospital Follow Up 0 05/15/2016 Patient Education: Patient Medication Summary Completed 05/15/2016 Appointment: Catrina Bran [address] [place], [place] [phone] [place] 05/09 admitted into the hospital last night~ ACUTE ILLNESS 05/09/2016 Appointment: Josefa Talamantes WPtel: [address] [place], [place] [phone] [place] INJECTION 05/03/2016 Patient Education: Patient Medication Summary Completed 05/03/2016 Appointment: Josefa Talamantes WPtel: [address] [place], [place] [phone] [place] INJECTION 02/20/2016 Patient Education: Patient Medication Summary Completed 02/20/2016 Visit Plan: ERx for Bactrim and Bactroba n Called to [facility] Ultram 50mg 1 po q 4-6 hours prn pain #20 Warm moist heat to area qid Watch for s/s of worsening, go to over weekend Discussed SE of meds including s/s of SJS which would require an ER visit C&S obtained 12/23/2015 Appointment: Kitty Caldera WPtel: [address] [place], [place] [phone] [place] ACUTE ILLNESS 12/23/2015 Patient Education: Patient Medication Summary Completed 12/23/2015 Appointment: Josefa Talamantes WPtel: [address] [place], [place] [phone] [place] INJECTION 11/07/2015 Patient Education: Patient Medication Summary Completed 11/07/2015 Appointment: Josefa Talamantes WPtel: [address] [place], [place] [phone] [place] INJECTION 08/01/2015 Patient Education: Patient Medication Summary Completed 08/01/2015 Appointment: Josefa Talamantes WPtel: [address] [place], [place] [phone] [place] INJECTION 05/11/2015 Patient Education: Patient Medication Summary Completed 05/11/2015 Appointment: Malgorzata Islas WPtel: [address] [place], [place] [phone] [place] PAP 04/05/2015 Appointment: Josefa Talamantes WPtel: [address] [place], [place] [phone] [place] INJECTION 02/16/2015 Patient Education: Patient Medication Summary Completed 02/16/2015 Visit Plan: Daily nasal saline rinses Fl onase nasal spray and daily Zyrtec Medrol dose pack Z-jhonathan as directed 01/26/2015 Appointment: Malgorzata Islas WPtel: [address] [place], [place] [phone] ACUTE ILLNESS 01/26/2015 Patient Education: Patient Medication Summary Completed 01/26/2015 Appointment: Josefa Talamantes WPtel: [address] [place], [place] [phone] INJECTION 11/29/2014 Patient Education: Patient Medication Summary Completed 11/29/2014 Appointment: Josefa Talamantes WPtel: [address] [place], [place] [phone] INJECTION 09/09/2014 Patient Education: Patient Medication Summary Completed 09/09/2014 Appointment: Malgorzata Islas WPtel: [address] [place], [place] [phone] FOLLOW UP 06/16/2014 Patient Education: Patient Medication Summary Completed 06/16/2014 Appointment: Malgorzata Islas WPtel: [address] [place], [place] [phone] 06/02/14 appointment scheduled 06/03/14 no showed PAP 06/03/2014 Appointment: Malgorzata Islas WPtel: [address] [place], [place] [phone] FOLLOW UP 01/28/2014 Patient Education: Patient Medication Summary Completed 01/28/2014 Care Plan: [place] : [address]-2 Ordered 01/28/2014 Care Plan: AMYLASE Pending 4 Appointment: Malgorzata Islas WPtel: [address] [place], [place] [phone] [place] FOLLOW UP 12/10/2013 Patient Education: Patient Medication Summary Completed 12/10/2013 Appointment: Malgorzata Islas WPtel: [address] [place], [place] [phone] 11/11 vm 11/12 No Show FOLLOW UP 11/12/2013 Appointment: Malgorzata Islas WPtel: [address] [place], [place] [phone] [place] FOLLOW UP 10/20/2013 Patient Education: Patient Medication Summary Completed 10/20/2013 Visit Plan: Quantitative Hcg and CBC tod ay. Transvaginal/Transabdominal sonogram stat Discussed with [facility] and BHCG 343 so will recheck in 1week as long as not worsening 10/07/2013 Appointment: Malgorzata Islas WPtel: [address] [place], [place] [phone] ACUTE ILLNESS 10/07/2013 Patient Education: Patient Medication Summary Completed 10/07/2013 Appointment: Malgorzata Islas WPtel: [address] [place] [address] ACUTE ILLNESS 09/15/2013 Patient Education: Patient Medication Summary Completed 09/15/2013 Appointment: Malgorzata Islas WPtel: [address] [place] [address] ACUTE ILLNESS 06/24/2013 Patient Education: Patient Medication Summary Completed 06/24/2013 Appointment: Malgorzata Islas WPtel: [address] [place] [address] [place] appt was scheduled today then patient no showed the visit ACUTE ILLNESS 05/21/2013 Visit Plan: Check CMP, CBC, UA CT scan o f abdomen Omeprazole 03/05/2013 Appointment: Josefa Talamantes WPtel: [address] [place], [place] [phone] ACUTE ILLNESS 03/05/2013 Appointment: Josefa Talamantes WPtel: [address] [place], [place] [phone] 03/02 canceled, wrong patient FOLLOW UP Patient Education: Patient Medication Summary Completed 03/05/2013 Appointment: Malgorzata Islas WPtel: [address] [place], [place] [phone] ACUTE ILLNESS 02/09/2013 Patient Education: Patient Medication Summary Completed 02/09/2013 Appointment: Justine Ortega WPtel: [address] [place] [address] ACUTE ILLNESS 09/08/2010 Patient Education: Patient Medication Summary Completed 09/08/2010 Appointment: Justine Ortega WPtel: [address] [place] [address] [place] PAP 08/08/2010 Appointment: Justine Ortega WPtel: [address] [place] [address] ACUTE ILLNESS 07/24/2010 Patient Education: Patient Medication Summary Completed 07/24/2010 Visit Plan: All warts shaved with 11-rekha de scalpel and then cryotherapy x3 Will followup with DNCB treatment 03/08/2010 Appointment: Josefa Talamantes WPtel: [address] [place] [address] ACUTE ILLNESS 03/08/2010 Patient Education: Patient Medication Summary Completed 03/08/2010 Appointment: Josefa Talamantes WPtel: [address] [place] [address] [place] PAP 09/14/2009 Referral: Roney Galloway WPtel: [address] Referral Initiated Referral: Brian Floyd WPtel: [address] Referral Initiated Referral: Referral Initiated Instructions [...] CBC today. Transvaginal/Transabdominal sonogram stat Discussed with [facility] and BHCG 343 so will recheck in [...]
--- OUTSIDE RECORDS SUMMARY | 2019-12-11 22:04 | XMS REPORT | CCD ---
Author Author Brenda Talamantes D.O. Organization [facility] Address [address] [place] [address] Phone Care Team Providers Care Data Center Consultant Name Role Phone Josefa Talamantes D.O., PP Unavailable CCM Unavailable Summary Purpose Interface Exchange Insurance Providers Payer name Policy type / Coverage type Covered democrat ID Effective Begin Date Effective End Date [facility] Commercial Insurance [id number] Unknown Family History Family History data not found Social History Social History Element Codes Description Effective Dates Tobacco history SNOMED CT: 826256371 Unknown if ever smoked 01/12 Allergies, Adverse [...] Bactrim DS 800 mg-160 mg tablet RxNorm: 893006 1 Tablet(s) Oral two times a day 06/08/2019 06/13/2019 Inactive Bactrim DS 800 mg-160 mg tablet RxNorm: 801105 1 Tablet(s) Oral two times a day 06/08/2019 06/07/2019 Inactive ibuprofen 800 mg tablet RxNorm: 945570 1 Tablet(s) Oral Q8H as needed 03/16/2019 06/05/2019 Inactive Cipro 500 mg tablet RxNorm: 008393 1 Tablet(s) Oral two times a day 03/04/2019 03/11/2019 Inactive Cipro 500 mg tablet RxNorm: 013145 1 Tablet(s) Oral two times a day 03/04/2019 03/03/2019 Inactive Macrobid 100 mg capsule RxNorm: 610001 1 Capsule(s) Oral two ti mes a day 02/16/2019 02/15/2019 Inactive Macrobid 100 mg capsule RxNorm: 671204 1 Capsule(s) Oral two ti mes a [...] 11/24/2017 Inactive Pepcid 40 mg tablet RxNorm: 899416 1 Tablet(s) PO QD 10/18/201603/02 Inactive Depo-Provera 150 mg/mL intramuscular suspension RxNorm: 1000 128 Milliliter(s) 1 Milliliter(s) IM 10/10/2016 06/04/2017 Inactive Tamiflu 75 mg capsule RxNorm: 843243 1 Capsule(s) PO BID 08/08/2016 0 08/12/2016 Inactive Levsin 0.125 mg tablet RxNorm: 7553411 1 Tablet(s) PO TID for fl ank pain 05/15/2016 10/17/2016 Inactive Bactrim DS 800 mg-160 mg tablet RxNorm: 953319 1 Tablet(s) PO BID 0 12/23/2015 01/01/2016 Inactive mupirocin 2 % topical ointment RxNorm: 698709 Application TOP TID 0 12/23/2015 12/29/2015 Inactive Depo-Provera 150 mg/mL intramuscular suspension RxNorm: 1000 128 Milliliter(s) 1 Milliliter(s) IM 11/08/2015 10/09/2016 Inactive Xanax 0.25 mg tablet RxNorm: 864145 TAKE ONE-HALF TO ON E TABLET BY MOUTH NEEDED FOR ANXIETY 04/11/2015 05/10/2015 Inactive Generic For:X ANAX 0.25 MG TABLET 04/11/2015 2:54:57 PM Depo-Provera 150 mg/mL intramuscular suspension RxNorm: 1000 128 Milliliter(s) 1 Milliliter(s) IM 02/15/2015 11/07/2015 Inactive azithromycin 250 mg tablet RxNorm: 964691 2 Tablet(s) P O today, then one tablet on days 2 - 5 01/26/2015 12/22/2015 Inactive Medrol (Jhonathan) 4 mg tablets in a dose pack RxNorm: 692958 Tablet(s) P O 01/26/2015 12/22/2015 Inactive Depo-Provera 150 mg/mL intramuscular suspension RxNorm: 1000 128 1 Milliliter(s) IM 09/06/2014 02/15/2015 Inactive Xanax 0.25 mg tablet RxNorm: 450029 1/2 - 1 Tablet(s) PO as nee ded for anxiety 06/16/2014 04/12/2015 Inactive Zoloft 50 mg tablet RxNorm: 794272 1 Tablet(s) PO QD 06/16/201412/21 Inactive Flexeril [...] 2014 Inactive Xanax 0.25 mg tablet RxNorm: 446514 1/2 - 1 Tablet(s) PO as nee ded for anxiety 01/28/2014 06/15/2014 Inactive naproxen 500 mg tablet RxNorm: 753221 1 Tablet(s) PO BID 12/10/2013 0 01/08/2014 Inactive Zoloft 50 mg tablet RxNorm: 134615 1 Tablet(s) PO QD 12/10/201304/08 Inactive Xanax 0.25 mg tablet RxNorm: 734441 1/2 - 1 Tablet(s) PO as nee ded for anxiety 12/10/2013 01/27/2014 Inactive Xanax 0.25 mg tablet RxNorm: 474226 1 Tablet(s) PO Q8H 10/20/2013 Inactive Zoloft 50 mg tablet RxNorm: 546494 1/2 Tablet(s) PO x 6 days then on1 tablet daily 10/20/2013 11/18/2013 Inactive Loestrin Fe 06/01 (28) 1 mg-20 mcg tablet RxNorm: 9647018 1 Table t(s) PO QD 10/20/2013 05/03/2014 Inactive phenazopyridine 100 mg tablet RxNorm: 7168932 1 Tablet(s) PO Q8H 06/26/2013 Inactive Macrobid 100 mg capsule RxNorm: 899334 1 Capsule(s) PO BID 06/25/19 14 07/04/2013 Inactive phenazopyridine 100 mg tablet RxNorm: 4231876 1 Tablet(s) PO Q8H 06/24/2013 Inactive Macrobid 100 mg capsule RxNorm: 155005 1 Capsule(s) PO BID 07/25/19 11 08/02/2010 Inactive Apri 0.15 mg-30 mcg tablet RxNorm: 426085 1 Tablet(s) PO QD As directed. No Start Date 06/23/2013 Inactive omeprazole 40 mg capsule,delayed release RxNorm: 087566 1 Capsule(s) PO QD for stomach No Start Date 06/23/2013 Inactive naproxen 500 mg tablet RxNorm: 479058 1 Tablet(s) PO BID No Start D ate 06/15/2014 Inactive hydrocodone 10 mg-acetaminophen 325 mg tablet RxNorm: 950843 Tablet(s) PO as needed for pain No Start Date 12/22/2015 Inactive Zoloft 50 mg tablet RxNorm: 156537 1 Tablet(s) PO QD No Start Date Inactive hydrocodone 5 mg-acetaminophen 325 mg tablet RxNorm: 004427 1 Tablet(s) PO QID as needed for pain No Start Date 09/14/2013 Inactive Medication Administered No Medication Administered data Immunizations No Immunization data Results Observation Observation Code Item Item Code Result Date S ervice Location LIPASE 87956 LIPASE 14 IU/L 01/28/2014 Unknown COMPLETE BLOOD COUNT [id number] WBC 6.5 10e9/L 01/29/20 14 Unknown COMPLETE BLOOD COUNT [id number] RBC 4.54 10e12/L 2013 Unknown COMPLETE BLOOD COUNT [id number] HGB 12.1 g/dL 4 Unknown COMPLETE BLOOD COUNT [id number] HCT DET 38.0 % 4 Unknown COMPLETE BLOOD COUNT [id number] MCV 83.7 fL 4 Unknown COMPLETE BLOOD COUNT [id number] MCH 26.7 pg 4 Unknown COMPLETE BLOOD COUNT [id number] MCHC 31.8 g/dL 4 Unknown COMPLETE BLOOD COUNT [id number] PLT 218 10e9/L 01/29/20 14 Unknown COMPLETE BLOOD COUNT [id number] MPV 12.8 fL 4 Unknown COMPLETE BLOOD COUNT [id number] RACHNA % 56.5 % 4 Unknown COMPLETE BLOOD COUNT [id number] LY % 32.3 % 4 Unknown COMPLETE BLOOD COUNT [id number] MON % 8.6 % 4 Unknown COMPLETE BLOOD COUNT [id number] EOS % 2.1 % 4 Unknown COMPLETE BLOOD COUNT [id number] BASO % 0.5 % 4 Unknown COMPLETE BLOOD COUNT [id number] RDW 18.4 % 4 Unknown COMPLETE BLOOD COUNT [id number] ABS RACHNA 3.67 10e9/L 014 Unknown COMPLETE BLOOD COUNT [id number] ABS LYMPH 2.10 10e9/L 014 Unknown COMPLETE BLOOD COUNT [id number] ABS MONO 0.56 10e9/L 014 Unknown COMPLETE BLOOD COUNT [id number] ABS EOS 0.14 10e9/L 014 Unknown COMPLETE BLOOD COUNT 2109001 ABS BASO 0.03 10e9/L 014 Unknown COMPLETE BLOOD COUNT [id number] RDW-SD 55.5 fL 4 Unknown COMPREHENSIVE METABOLIC 90566 AST 13 U/L 2013 Unknown COMPREHENSIVE METABOLIC 93859 ALT 7 IU/L 2013 Unknown COMPREHENSIVE METABOLIC 69105 BUN 8 MG/DL 2013 Unknown COMPREHENSIVE METABOLIC 14044 ALBUMIN 4.5 GM/DL 2013 Unknown COMPREHENSIVE METABOLIC 71728 CHLORIDE 106 MMOL/L 01/28 Unknown COMPREHENSIVE METABOLIC 36931 BILI TOT 0.4 MG/DL 2013 Unknown COMPREHENSIVE METABOLIC 95994 ALK PHOS 55 U/L 2013 Unknown COMPREHENSIVE METABOLIC 59054 SODIUM 138 MMOL/L 01/28 Unknown COMPREHENSIVE METABOLIC 13028 CREATININE 0.73 MG/DL 01/11 Unknown COMPREHENSIVE METABOLIC 34267 CALCIUM 9.9 MG/DL 2013 Unknown COMPREHENSIVE METABOLIC 34012 POTASSIUM 3.8 MMOL/L 01/28 Unknown COMPREHENSIVE METABOLIC 75301 PROT TOT 7.4 GM/DL 2013 Unknown COMPREHENSIVE METABOLIC 84289 Glucose 96 MG/DL 2013 Unknown COMPREHENSIVE METABOLIC 90007 BICARB 27 MMOL/L 2013 Unknown COMPREHENSIVE METABOLIC 86921 ANION GAP 5 MEQ/L 2013 Unknown AMYLASE 23979 AMYLASE 42 IU/L 01/28/2014 Unknown GFR CALC [id number] GFR AA >60 ML/MIN 01/28/2014 Unknown GFR CALC 0163014 GFR NON-AA >60 ML/MIN 01/28/2014 Unknown Procedures Procedure Codes Date URINE CULTURE/ COLONY COUNT CPT-4: 82879 06/15/2019 URINALYSIS NONAUTO W/O SCOPE CPT-4: 88044 06/05/2019 CEFTRIAXONE SODIUM INJECTION CPT-4: J0696 06/05/2019 THER/PROPH/DIAG INJ SC/IM CPT-4: 65321 06/05/2019 URINE CULTURE/ COLONY COUNT CPT-4: 18252 06/05/2019 URINE CULTURE/ COLONY COUNT CPT-4: 92974 03/02/2019 THER/PROPH/DIAG INJ SC/IM CPT-4: 50040 02/16/2019 URINE CULTURE/ COLONY COUNT CPT-4: 19796 02/16/2019 URINALYSIS NONAUTO W/O SCOPE CPT-4: 87572 02/16/2019 URINE TEST CPT-4: 38408 02/16/2019 THER/PROPH/DIAG INJ SC/IM CPT-4: 76772 05/21/2018 THER/PROPH/DIAG INJ SC/IM CPT-4: 79831 11/26/2017 THER/PROPH/DIAG INJ SC/IM CPT-4: 06250 08/27/2017 THER/PROPH/DIAG INJ SC/IM CPT-4: 55380 06/06/2017 URINALYSIS NONAUTO W/O SCOPE CPT-4: 47285 06/06/2017 GC/CHLAMYDIA DNA (BD-ProbeTe) CPT-4: 29859|79198 8 URINE CULTURE/ COLONY COUNT CPT-4: 98287 06/06/2017 THER/PROPH/DIAG INJ SC/IM CPT-4: 32942 01/04/2017 SPECIMEN HANDLING OFFICE-LAB CPT-4: 55455 10/18/2016 THER/PROPH/DIAG INJ SC/IM CPT-4: 87007 10/12/2016 INFLUENZA ASSAY W/OPTIC CPT-4: 54532 08/08/2016 THER/PROPH/DIAG INJ SC/IM CPT-4: 65290 07/25/2016 THER/PROPH/DIAG INJ SC/IM CPT-4: 60659 05/03/2016 THER/PROPH/DIAG INJ SC/IM CPT-4: 31159 02/20/2016 URINE TEST CPT-4: 16378 02/20/2016 AEROBIC WOUND CULTURE & STN CPT-4: 94156 12/23/2015 THER/PROPH/DIAG INJ SC/IM CPT-4: 62932 11/07/2015 URINE TEST CPT-4: 80738 11/07/2015 THER/PROPH/DIAG INJ SC/IM CPT-4: 85955 08/01/2015 THER/PROPH/DIAG INJ SC/IM CPT-4: 36157 05/11/2015 THER/PROPH/DIAG INJ SC/IM CPT-4: 64350 02/16/2015 THER/PROPH/DIAG INJ SC/IM CPT-4: 17444 11/29/2014 THER/PROPH/DIAG INJ SC/IM CPT-4: 20115 09/09/2014 URINE TEST CPT-4: 84983 06/16/2014 THER/PROPH/DIAG INJ SC/IM CPT-4: 83419 06/16/2014 ROUTINE VENIPUNCTURE CPT-4: 79168 10/07/2013 COMPLETE CBC W/AUTO DIFF WBC CPT-4: 80604 10/07/2013 CHORIONIC GONADOTROPIN TEST CPT-4: 61042 10/07/2013 URINE TEST CPT-4: 51586 09/15/2013 URINALYSIS NONAUTO W/O SCOPE CPT-4: 71296 06/24/2013 URINE CULTURE/ COLONY COUNT CPT-4: 49815 06/24/2013 URINE TEST CPT-4: 00689 09/08/2010 URINALYSIS NONAUTO W/O SCOPE CPT-4: 23264 07/24/2010 URINE CULTURE/ COLONY COUNT CPT-4: 37292 07/24/2010 DESTRUCT PREMALG LESION (Cryosurgery) CPT-4: 44022 DESTRUCT PREMALG LES 2-14 CPT-4: 43342 03/08/2010 Vital Signs Date Vital 06/05/2019 Blood Pressure 1: 131/82 Code: 8480-6 BMI: 26.3 Code: 85838-7 Heart Rate 1: 109 bpm Height: 5'9" Respiratory Rate: 16 bpm SpO2: 99% Tempera ture: 36.7 (C) / 98.1 (F) Weight: 178 lbs 03/16/2019 Blood Pressure 1: 132/86 Code: 8480-6 Heart Rate 1: 73 bpm SpO2: 99% Temperature: 36.6 (C) / 97.9 (F) Weight: 158 lbs 03/03/2018 Blood Pressure 1: 120/88 Code: 8480-6 BMI: 23.9 Code: 05451-3 Heart Rate 1: 81 bpm Height: 5'9" Respiratory Rate: 18 bpm SpO2: 99% Tempera ture: 36.1 (C) / 97.0 (F) Weight: 162 lbs 10/18/2016 Blood Pressure 1: 108/78 Code: 8480-6 BMI: 22.6 Code: 23253-8 Heart Rate 1: 100 bpm Height: 5'9" Respiratory Rate: 20 bpm SpO2: 98% Tempera ture: 37.1 (C) / 98.8 (F) Weight: 153 lbs 08/08/2016 Blood Pressure 1: 114/78 Code: 8480-6 Heart Rate 1: 102 bpm Respiratory Rate: 20 bpm SpO2: 98% Temperature: 36.4 (C) / 97.6 (F) We ight: 152 lbs 05/15/2016 Blood Pressure 1: 124/80 Code: 8480-6 BMI: 23.2 Code: 38464-0 Heart Rate 1: 100 bpm Height: 5'9" Respiratory Rate: 20 bpm Temperature: 37 .0 (C) / 98.6 (F) Weight: 157 lbs 12/23/2015 Blood Pressure 1: 124/78 Code: 8480-6 BMI: 23.0 Code: 65743-3 Heart Rate 1: 92 bpm Height: 5'9" Respiratory Rate: 20 bpm SpO2: 97% Tempera ture: 36.9 (C) / 98.5 (F) Weight: 156 lbs 01/26/2015 Blood Pressure 1: 118/78 Code: 8480-6 BMI: 21.3 Code: 17490-1 Heart Rate 1: 100 bpm Height: 5'9" Respiratory Rate: 20 bpm SpO2: 97% Tempera ture: 36.6 (C) / 97.8 (F) Weight: 144 lbs 06/16/2014 Blood Pressure 1: 118/78 Code: 8480-6 BMI: 23.5 Code: 51772-6 Heart Rate 1: 78 bpm Height: 5'9" Respiratory Rate: 18 bpm Temperature: 36 .1 (C) / 97.0 (F) Weight: 159 lbs 01/28/2014 Blood Pressure 1: 124/78 Code: 8480-6 BMI: 23.2 Code: 26534-5 Heart Rate 1: 88 bpm Height: 5'9" Respiratory Rate: 22 bpm Temperature: 36 .1 (C) / 97.0 (F) Weight: 157 lbs 12/10/2013 Blood Pressure 1: 124/70 Code: 8480-6 BMI: 23.0 Code: 28823-2 Heart Rate 1: 82 bpm Height: 5'9" Respiratory Rate: 20 bpm Temperature: 36 .2 (C) / 97.2 (F) Weight: 156 lbs 10/20/2013 Blood Pressure 1: 118/82 Code: 8480-6 Heart Rate 1: 84 bpm Respiratory Rate: 22 bpm Temperature: 36.5 (C) / 97.7 (F) Weight: 150 lbs 10/07/2013 Blood Pressure 1: 120/80 Code: 8480-6 BMI: 22.2 Code: 83149-4 Heart Rate 1: 68 bpm Height: 5'9" Respiratory Rate: 22 bpm Temperature: 36 .2 (C) / 97.2 (F) Weight: 150 lbs 09/15/2013 Blood Pressure 1: 118/68 Code: 8480-6 BMI: 22.0 Code: 69738-7 Heart Rate 1: 78 bpm Height: 5'9" Respiratory Rate: 20 bpm Temperature: 36 .1 (C) / 97.0 (F) Weight: 149 lbs 06/24/2013 Blood Pressure 1: 112/74 Code: 8480-6 Heart Rate 1: 74 bpm Respiratory Rate: 20 bpm Temperature: 36.6 (C) / 97.9 (F) Weight: 150 lbs 03/05/2013 Blood Pressure 1: 126/88 Code: 8480-6 BMI: 23.5 Code: 36568-3 Heart Rate 1: 80 bpm Height: 5'9" Respiratory Rate: 20 bpm Temperature: 36 .6 (C) / 97.9 (F) Weight: 159 lbs 02/09/2013 Blood Pressure 1: 110/68 Code: 8480-6 BMI: 21.9 Code: 22520-6 Heart Rate 1: 74 bpm Height: 5'9" Respiratory Rate: 22 bpm Temperature: 36 .8 (C) / 98.2 (F) Weight: 148 lbs 09/08/2010 Blood Pressure 1: 124/90 Code: 8480-6 BMI: 21.4 Code: 64192-5 Height: 5'10" Temperature: 36.4 (C) / 97.6 [...] painful Encounters Encounter Performer Location Codes Date ([id number]) NURSE/OUTPATIENT VISIT EST Diagnosis: Urinary tract infection[ICD10: N39.0] Josefa TALAMANTES [employer] CPT-4: 64811 06/15/2019 ([id number]) OFFICE/OUTPATIENT VISIT EST Diagnosis: Dysuria[ICD10: R30.0] Diagnosis: Pelvic pain in female[ICD10: R10.2] Keyanna TALAMANTES [employer] CPT-4: 61685 06/05/2019 ([id number]) OFFICE/OUTPATIENT VISIT EST Diagnosis: Left wrist pain[ICD10: M25.532] Diagnosis: Swelling of left upper extremity[ICD10: M79.89] Keyanna TALAMANTES DO [facility] CPT-4: 40653 03/16/2019 ([id number]) NURSE/OUTPATIENT VISIT EST Diagnosis: Urinary tract infection[ICD10: N39.0] Josefa TALAMANTES [employer] CPT-4: 72446 03/02/2019 ([id number]) NURSE/OUTPATIENT VISIT EST Diagnosis: Irregular menstruation, unspecified[ICD10: N92.6] Diagnosis: Urinary tract infection[ICD10: N39.0] Josefa TALAMANTES [employer] CPT-4: 88846 02/16/2019 ([id number]) NURSE/OUTPATIENT VISIT EST Diagnosis: Irregular menstruation, unspecified[ICD10: N92.6] Josefa [facility]ANTES DO [facility] CPT-4: 34324 05/21/2018 ([id number]) OFFICE/OUTPATIENT VISIT EST Diagnosis: Irregular menstruation, unspecified[ICD10: N92.6] Diagnosis: Diseases of lips[ICD10: K13.0] Diagnosis: 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] Keyanna [facility] DO [facility] CPT-4: 50187 03/03/2018 ([id number]) NURSE/OUTPATIENT VISIT EST Diagnosis: Irregular menstruation, unspecified[ICD10: N92.6] Josefa [facility]ANTES DO [facility] CPT-4: 39157 11/26/2017 ([id number]) OFFICE/OUTPATIENT VISIT EST Diagnosis: Irregular menstruation, unspecified[ICD10: N92.6] Josefa [facility]ANTES DO [facility] CPT-4: 09109 08/27/2017 ([id number]) OFFICE/OUTPATIENT VISIT EST Diagnosis: Dysuria[ICD10: R30.0] Diagnosis: Irregular menstruation, unspecified[ICD10: N92.6] Josefa [facility] CPT-4: 82858 06/06/2017 ([id number]) OFFICE/OUTPATIENT VISIT EST Diagnosis: Irregular menstruation, unspecified[ICD10: N92.6] Josefa [facility]ANTES DO [facility] CPT-4: 79376 01/04/2017 ([id number]) PREV VISIT EST AGE 18-39 Diagnosis: Encounter for general adult medical examination without abnormal findings[ICD10: Z00.00] Diagnosis: Encounter for gynecological examination (general) (routine) without abnormal findings[ICD10: Z01.419] Diagnosis: Gastro-esophageal reflux disease without esophagitis[ICD10: K21.9] Diagnosis: Dysphagia, pharyngeal phase[ICD10: R13.13] Josefa [facility]ANTES DO [facility] CPT-4: 18707 10/18/2016 ([id number]) OFFICE/OUTPATIENT VISIT EST Diagnosis: Irregular menstruation, unspecified[ICD10: N92.6] Josefa [facility]AMANTES DO [facility] CPT-4: 05584 10/12/2016 ([id number]) OFFICE/OUTPATIENT VISIT EST Diagnosis: Fever, unspecified[ICD10: R50.9] Diagnosis: Influenza due to identified novel influenza A virus with other respiratory manifestations[ICD10: J09.X2] Catrina [facility] DO [facility] CPT-4: 34236 08/08/2016 ([id number]) OFFICE/OUTPATIENT VISIT EST Diagnosis: Irregular menstruation, unspecified[ICD10: N92.6] Josefa TALAMANTES DO [facility] CPT-4: 99522 07/25/2016 ([id number]) OFFICE/OUTPATIENT VISIT EST Diagnosis: Right upper quadrant pain[ICD10: R10.11] Diagnosis: Unspecified abdominal pain[ICD10: R10.9] Josefa [facility]AMANTES DO [facility] CPT-4: 52937 05/15/2016 ([id number]) OFFICE/OUTPATIENT VISIT EST Diagnosis: Irregular menstruation, unspecified[ICD10: N92.6] Josefa [facility]AMANTES DO [facility] CPT-4: 74731 05/03/2016 ([id number]) OFFICE/OUTPATIENT VISIT EST Diagnosis: Irregular menstruation, unspecified[ICD10: N92.6] Josefa [facility]ANTES DO [facility] CPT-4: 86541 02/20/2016 OFFICE/OUTPATIENT VISIT EST Diagnosis: Cutaneous abscess of buttock[ICD10: L02.31] Kitty Caldera JOSEFA [facility] CPT-4: 02754 12/23/2015 ([id number]) OFFICE/OUTPATIENT VISIT EST Diagnosis: Irregular menstruation, unspecified[ICD10: N92.6] Josefa Vinita [facility] CPT-4: 80408 11/07/2015 ([id number]) OFFICE/OUTPATIENT VISIT EST Diagnosis: Irregular menstruation, unspecified[ICD10: N92.6] Josefa Vinita TALAMANTES [facility] CPT-4: 09730 08/01/2015 ([id number]) OFFICE/OUTPATIENT VISIT EST Diagnosis: Irregular menstruation, unspecified[ICD10: N92.6] Josefa TALAMANTES DO [facility] CPT-4: 46219 05/11/2015 ([id number]) OFFICE/OUTPATIENT VISIT EST Diagnosis: Irregular menstruation, unspecified[ICD10: N92.6] Josefa [facility]AMANTES DO [facility] CPT-4: 39421 02/16/2015 OFFICE/OUTPATIENT VISIT EST Diagnosis: SINUSITIS, ACUTE[ICD9: 461.9] Malgorzata TALAMANTES DO [facility] CPT-4: 46828 01/26/2015 ([id number]) OFFICE/OUTPATIENT VISIT EST Diagnosis: IRREGULAR MENSTRUATION[ICD9: 626.4] Josefa TALAMANTES [facility] CPT-4: 98000 11/29/2014 ([id number]) OFFICE/OUTPATIENT VISIT EST Diagnosis: IRREGULAR MENSTRUATION[ICD9: 626.4] Josefa TALAMANTES DO [facility] CPT-4: 83992 09/09/2014 ([id number]) OFFICE/OUTPATIENT VISIT EST Diagnosis: IRREGULAR MENSTRUATION[ICD9: 626.4] Diagnosis: General counseling and advice on contraceptive management[ICD9: V25.09] Diagnosis: Anxiety and depression[ICD9: 300.4] Malgorzata TALAMANTES DO [facility] CPT-4: 82468 06/16/2014 OFFICE/OUTPATIENT VISIT EST Diagnosis: Right upper quadrant pain[ICD9: 789.01] Malgorzata TALAMANTES DO [facility] CPT-4: 31008 01/28/2014 OFFICE/OUTPATIENT VISIT EST Diagnosis: Right upper quadrant pain[ICD9: 789.01] Malgorzata TALAMANTES DO [facility] CPT-4: 05516 12/10/2013 OFFICE/OUTPATIENT VISIT EST Diagnosis: Anxiety and depression[ICD9: 300.4] Malgorzata TALAMANTES DO [facility] CPT-4: 78906 10/20/2013 OFFICE/OUTPATIENT VISIT EST Diagnosis: Menorrhagia[ICD9: 626.2] Malgorzata [facility] CPT-4: 71108 10/07/2013 OFFICE/OUTPATIENT VISIT EST Diagnosis: IRREGULAR MENSTRUATION[ICD9: 626.4] Malgorzata TALAMANTES DO [facility] CPT-4: 15224 09/15/2013 OFFICE/OUTPATIENT VISIT EST Diagnosis: HEMATURIA NOS[ICD9: 599.70] Diagnosis: Abdominal discomfort in right upper quadrant[ICD9: 789.01] Malgorzata TALAMANTES DO [facility] CPT-4: 81683 06/24/2013 ([id number]) OFFICE/OUTPATIENT VISIT EST Diagnosis: ABDOMINAL PAIN[ICD9: 789.00] Diagnosis: GERD[ICD9: 530.81] Josefa Thadmamadou JOSEFA SergioMaria Teresa V[facility] [employer] CPT-4: 29090 03/05/2013 OFFICE/OUTPATIENT VISIT EST Diagnosis: General counseling and advice on contraceptive management[ICD9: V25.09] Diagnosis: IRREGULAR MENSTRUATION[ICD9: 626.4] Malgorzata TALAMANTES [employer] [facility] CPT-4: 29606 02/09/2013 ([id number]) OFFICE/OUTPATIENT VISIT EST Justine TALAMANTES DO [facility] CPT-4: 47427 09/08/2010 ([id number]) OFFICE/OUTPATIENT VISIT EST Justine Jordan JOSEFA TALAMANTES DO [facility] CPT-4: 84074 07/24/2010 Plan of Care Planned Activity Notes Codes Status Date Appointment: [facility] [phone] [id number] [facility] 06/15/2019 Visit Diagnosis Plan: Dysuria Discussion: due to recur rent pain and worsening symptoms, rocephin 1 gm given in office. will send urine off for culture and call on saturday if any changes needed. instructed to push fluids through the w eekend and go to urgent care with any worsening. ICD-9 : 788.1 ICD-10 : R30.0 06/05/2019 Appointment: Keyanna Mejía [address] [facility] FOLLOW UP 06/05/2019 Visit Diagnosis Plan: Left [...] : M25.532 03/16/2019 Appointment: Keyanna Mejía [address] [place] [id number] [facility] Follow Up 03/16/2019 Appointment: Josefa Talamantes WPtel: [address] [place] [address] [place] UA 03/02/2019 Appointment: Josefa Talamantes WPtel: [address] [place], [place] [phone] [place] INJECTION 02/16/2019 Appointment: Josefa Talamantes WPtel: [address] [place], [place] [phone] [place] INJECTION 05/21/2018 Visit Diagnosis Plan: Diseases of lips Discussion: ref erral to be sent to dr. galloway for evaluation of mass for possible debridement. instructed patient to apply warm compresses to lip until seen. ICD-9 : 528.5 ICD-10 : K13.0 03/03/2018 Visit Diagnosis Plan: Irregular menstruation, unspecif ied Discussion: urine performed in office and negative. 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 and bring back to [...] : 241.0 ICD-10 : E04.1 03/03/2018 Appointment: KymKeyanna [address] [place], [place] [id number] [place] ACUTE ILLNESS 03/03/2018 Patient Education: Patient Medication Summary Completed 03/03/2018 Care Plan: US EXAM OF HEAD AND NECK thyroid LOIN C : 93606-1 Pending 03/03/2018 Appointment: Josefa Talamantes WPtel: [address] [place], [place] [phone] [place] CANCELED 02/27/2018 Appointment: Josefa Talamantes WPtel: [address] [place], [place] [phone] [place] INJECTION 11/26/2017 Patient Education: Patient Medication Summary Completed 11/26/2017 Appointment: Josefa Talamantes WPtel: [address] [place], [place] [phone] [place] INJECTION 08/27/2017 Patient Education: Patient Medication Summary Completed 08/27/2017 Appointment: Josefa Talamantes WPtel: [address] [place], [place] [phone] [place] INJECTION 06/06/2017 Patient Education: Patient Medication Summary Completed 06/06/2017 Appointment: Josefa Talamantes WPtel: [phone] [place], [place] [phone] [place] INJECTION 01/04/2017 Patient Education: Patient Medication Summary Completed 01/04/2017 Appointment: Josefa Talamantes WPtel: [address] [place], [place] [id number] [place] 11/19 lm `sl 11/21 lm `sl NO SHOW 11/22/19 Patient Education: Patient Medication Summary Completed 10/22/2016 Care Plan: US EXAM OF HEAD AND NECK Thyroid Ultrasound LOIN C : 88537-6 Pending 10/22/2016 Visit Diagnosis Plan: Encounter for [...] : K21.9 10/18/2016 Appointment: Josefa Talamantes WPtel: [address] [place], [place] [phone] [place] 10/17 ` Annual Well Visit 10/18/2016 Patient Education: Patient Medication Summary Completed 10/18/2016 Appointment: Josefa Talamantes WPtel: [address] [place], [place] [phone] [place] INJECTION 10/12/2016 Patient Education: Patient Medication Summary Completed 10/12/2016 Visit Diagnosis Plan: Influenza due to i dentified novel influenza A virus with other respiratory manifestations Discussion: Flu A positive Rx as above Supportive care otherwise Contagious precautions discussed Notify kids' provider of exposure for their instructions ICD-9 : 488.02 ICD-10 : J09.X2 08/08/2016 Appointment: Catrina Bran [address] [place] [address] ACUTE ILLNESS 08/08/2016 Patient Education: Patient Medication Summary Completed 08/08/2016 Appointment: Josfea Talamantes WPtel: [address] [place], [place] [phone] INJECTION 07/25/2016 Patient Education: Patient Medication Summary Completed 07/25/2016 Visit Plan: Finish abx and then recultur e 48hrs after completion Add levsin and zorvolex 05/15/2016 Appointment: Josefa Talamantes WPtel: [address] [place], [place] [phone] [place] 05/14 [facility] 05/15 confirmed~ Hospital Follow Up 0 05/15/2016 Patient Education: Patient Medication Summary Completed 05/15/2016 Appointment: Catrina Bran [address] [place], [place] [phone] 05/09 admitted into the hospital last night~sl ACUTE ILLNESS 05/09/2016 Appointment: Josefa Talamantes WPtel: [address] [place], [place] [phone] [place] INJECTION 05/03/2016 Patient Education: Patient Medication Summary Completed 05/03/2016 Appointment: Josefa Talamantes WPtel: [address] [place], [place] [phone] [place] INJECTION 02/20/2016 Patient Education: Patient Medication [...] C&S obtained 12/23/2015 Appointment: Kitty Caldera WPtel: [address] [place], [place] [phone] ACUTE ILLNESS 12/23/2015 Patient Education: Patient Medication Summary Completed 12/23/2015 Appointment: Josefa Talamantes WPtel: [address] [place], [place] [phone] [place] INJECTION 11/07/2015 Patient Education: Patient Medication Summary Completed 11/07/2015 Appointment: Josefa Talamantes WPtel: [address] [place], [place] [id number] [place] INJECTION 08/01/2015 Patient Education: Patient Medication Summary Completed 08/01/2015 Appointment: Josefa Talamantes WPtel: [address] [place], [place] [id number] [place] INJECTION 05/11/2015 Patient Education: Patient Medication Summary Completed 05/11/2015 Appointment: Malgorzata Islas WPtel: [address] [place], [place] [phone] [place] PAP 04/05/2015 Appointment: Josefa Talamantes WPtel: [address] [place], [place] [phone] [place] INJECTION 02/16/2015 Patient Education: Patient Medication Summary Completed 02/16/2015 Visit Plan: Daily nasal saline rinses Fl onase nasal spray and daily Zyrtec Medrol dose pack Z-jhonathan as directed 01/26/2015 Appointment: Malgorzata Islas WPtel: [address] [place], [place] [phone] ACUTE ILLNESS 01/26/2015 Patient Education: Patient Medication Summary Completed 01/26/2015 Appointment: Josefa Talamantes WPtel: [address] [place], [place] [phone] [place] INJECTION 11/29/2014 Patient Education: Patient Medication Summary Completed 11/29/2014 Appointment: Josefa Talamantes WPtel: [address] [place], [place] [phone] [place] INJECTION 09/09/2014 Patient Education: Patient Medication Summary Completed 09/09/2014 Appointment: Malgorzata Islas WPtel: [address] [place], [place] [phone] [place] FOLLOW UP 06/16/2014 Patient Education: Patient Medication Summary Completed 06/16/2014 Appointment: Malgorzata Islas WPtel: [address] [place], [place] [phone] 06/02/14 appointment scheduled 06/03/14 no showed PAP 06/03/2014 Appointment: Malgorzata Islas WPtel: [address] [place], [place] [phone] [place] FOLLOW UP 01/28/2014 Patient Education: Patient Medication Summary Completed 01/28/2014 Care Plan: [place] : [address]-5 Ordered 01/28/2014 Care Plan: AMYLASE Pending 4 Appointment: Malgorzata Islas WPtel: [address] [place], [place] [phone] [place] FOLLOW UP 12/10/2013 Patient Education: Patient Medication Summary Completed 12/10/2013 Appointment: Malgorzata Islasteashely: [address] [place], [place] [phone] 11/11 vm 11/12 No Show FOLLOW UP 11/12/2013 Appointment: Malgorzata Islas WPtel: [address] [place], [place] [phone] [place] FOLLOW UP 10/20/2013 Patient Education: Patient Medication Summary Completed 10/20/2013 Visit Plan: Quantitative Hcg and CBC tod ay. Transvaginal/Transabdominal sonogram stat Discussed with BIOMEDICAL PHOTOGRAPHER and [facility] 343 so will recheck in 1week as long as not worsening 10/07/2013 Appointment: Malgorzata Islas WPtel: [address] [place] [address] ACUTE ILLNESS 10/07/2013 Patient Education: Patient Medication Summary Completed 10/07/2013 Appointment: Malgorzata Islas WPtel: [address] [place] [address] ACUTE ILLNESS 09/15/2013 Patient Education: Patient Medication Summary Completed 09/15/2013 Appointment: Malgorzata Islas WPtel: [address] [place] [address] ACUTE ILLNESS 06/24/2013 Patient Education: Patient Medication Summary Completed 06/24/2013 Appointment: Malgorzata Islas WPtel: [address] [place] [address] appt was scheduled today then patient no showed the visit ACUTE ILLNESS 05/21/2013 Visit Plan: Check CMP, CBC, UA CT scan o f abdomen Omeprazole 03/05/2013 Appointment: Josefa Talamantes WPtel: [address] [place], [place] [id number] ACUTE ILLNESS 03/05/2013 Appointment: Josefa Talamantes WPtel: [address] [place], [place] [phone] 03/02 canceled, wrong patient FOLLOW UP Patient Education: Patient Medication Summary Completed 03/05/2013 Appointment: Malgorzata Islsa WPtel: [address] [place] [address] ACUTE ILLNESS 02/09/2013 Patient Education: Patient Medication Summary Completed 02/09/2013 Appointment: Justine Ortega WPtel: [address] [place] [address] ACUTE ILLNESS 09/08/2010 Patient Education: Patient Medication Summary Completed 09/08/2010 Appointment: Justine Ortega WPtel: [address] [place] [address] [place] PAP 08/08/2010 Appointment: Justine Ortega WPtel: [address] [place] [address] ACUTE ILLNESS 07/24/2010 Patient Education: Patient Medication Summary Completed 07/24/2010 Visit Plan: All warts shaved with 11-rekha de scalpel and then cryotherapy x3 Will followup with DNCB treatment 03/08/2010 Appointment: Josefa Talamantes WPtel: [address] [place] [address] ACUTE ILLNESS 03/08/2010 Patient Education: Patient Medication Summary Completed 03/08/2010 Appointment: Josefa Talamantes WPtel: [address] [place] [address] [place] PAP 09/14/2009 Referral: Roney Galloway WPtel: [address] [address] [place] Referral Initiated Referral: Brian Floyd WPtel[facility] [address] [id number] [place] Referral Initiated Referral: Referral Initiated Instructions [...] CBC today. Transvaginal/Transabdominal sonogram stat Discussed with BIOMEDICAL PHOTOGRAPHER and [facility] 343 so will recheck in [...]
--- OUTSIDE RECORDS SUMMARY | 2019-12-11 22:05 | XMS REPORT | CCD ---
Author Author Brenda Talamantes D.O. Organization JOSEFA TALAMANTES DO [facility] Address [address] [place] [address] Phone Care Team Providers Care Nut Threader Name Role Phone Josefa Talamantes D.O., PP Unavailable CCM Unavailable Summary Purpose Interface Exchange Insurance Providers Payer name Policy type / Coverage type Covered republican ID Effective Begin Date Effective End Date AETNA [facility] [id number] Insurance [id number] Unknown Family History Family History data not found Social History Social History Element Codes Description Effective Dates Tobacco history SNOMED CT: 678725691 Unknown if ever smoked 01/12 Allergies, Adverse Reactions, Alerts Substance Reaction Codes Entered Date Inactivated Date Status * NO KNOWN FOOD ALLERGIES Unknown 03/08/2010 No Inactiv e Date Active * NO KNOWN ENVIRONMENTAL ALLERGIES Unknown 03/08/2010 N o Inactive Date Active Problems Condition Codes Effective Dates Condition Status Dysuria ICD-9: 788.1 ICD-10: R30.0 06/06/2017 Active Pelvic pain in female ICD-9: 625.9 ICD-10: R10.2 06/05/2019 Active Left wrist pain ICD-9: 719.43 ICD-10: M25.532 03/16/2019 Active Swelling of left upper extremity ICD-9: 729.81 ICD-10: M79.89 03/16/2019 Active Urinary tract infection ICD-9: 599.0 ICD-10: N39.0 02/16/2019 Active Irregular menstruation, unspecified ICD-9: 626.2 ICD-10: [...] Bactrim DS 800 mg-160 mg tablet RxNorm: 696619 1 Tablet(s) Oral two times a day 06/08/2019 06/13/2019 Active Bactrim DS 800 mg-160 mg tablet RxNorm: 764955 1 Tablet(s) Oral two times a day 06/08/2019 06/07/2019 Inactive ibuprofen 800 mg tablet RxNorm: 302749 1 Tablet(s) Oral Q8H as needed 03/16/2019 06/05/2019 Inactive Cipro 500 mg tablet RxNorm: 076238 1 Tablet(s) Oral two times a day 03/04/2019 03/11/2019 Inactive Cipro 500 mg tablet RxNorm: 434545 1 Tablet(s) Oral two times a day 03/04/2019 03/03/2019 Inactive Macrobid 100 mg capsule RxNorm: 292824 1 Capsule(s) Oral two ti mes a day 02/16/2019 02/15/2019 Inactive Macrobid 100 mg capsule RxNorm: 497992 1 Capsule(s) Oral two ti mes a [...] 11/24/2017 Inactive Pepcid 40 mg tablet RxNorm: 277595 1 Tablet(s) PO QD 10/18/201603/02 Inactive Depo-Provera 150 mg/mL intramuscular suspension RxNorm: 1000 128 Milliliter(s) 1 Milliliter(s) IM 10/10/2016 06/04/2017 Inactive Tamiflu 75 mg capsule RxNorm: 338508 1 Capsule(s) PO BID 08/08/2016 0 08/12/2016 Inactive Levsin 0.125 mg tablet RxNorm: 4854834 1 Tablet(s) PO TID for fl ank pain 05/15/2016 10/17/2016 Inactive Bactrim DS 800 mg-160 mg tablet RxNorm: 696376 1 Tablet(s) PO BID 0 12/23/2015 01/01/2016 Inactive mupirocin 2 % topical ointment RxNorm: 149446 Application TOP TID 0 12/23/2015 12/29/2015 Inactive Depo-Provera 150 mg/mL intramuscular suspension RxNorm: 1000 128 Milliliter(s) 1 Milliliter(s) IM 11/08/2015 10/09/2016 Inactive Xanax 0.25 mg tablet RxNorm: 730523 TAKE ONE-HALF TO ON E TABLET BY MOUTH NEEDED FOR ANXIETY 04/11/2015 05/10/2015 Inactive Generic For:X ANAX 0.25 MG TABLET 04/11/2015 2:54:57 PM Depo-Provera 150 mg/mL intramuscular suspension RxNorm: 1000 128 Milliliter(s) 1 Milliliter(s) IM 02/15/2015 11/07/2015 Inactive azithromycin 250 mg tablet RxNorm: 527043 2 Tablet(s) P O today, then one tablet on days 2 - 5 01/26/2015 12/22/2015 Inactive Medrol (Jhonathan) 4 mg tablets in a dose pack RxNorm: 888970 Tablet(s) P O 01/26/2015 12/22/2015 Inactive Depo-Provera 150 mg/mL intramuscular suspension RxNorm: 1000 128 1 Milliliter(s) IM 09/06/2014 02/15/2015 Inactive Xanax 0.25 mg tablet RxNorm: 624275 1/2 - 1 Tablet(s) PO as nee ded for anxiety 06/16/2014 04/12/2015 Inactive Zoloft 50 mg tablet RxNorm: 972283 1 Tablet(s) PO QD 06/16/201412/21 Inactive Flexeril [...] 2014 Inactive Xanax 0.25 mg tablet RxNorm: 441911 1/2 - 1 Tablet(s) PO as nee ded for anxiety 01/28/2014 06/15/2014 Inactive naproxen 500 mg tablet RxNorm: 530741 1 Tablet(s) PO BID 12/10/2013 0 01/08/2014 Inactive Zoloft 50 mg tablet RxNorm: 152895 1 Tablet(s) PO QD 12/10/201304/08 Inactive Xanax 0.25 mg tablet RxNorm: 872367 1/2 - 1 Tablet(s) PO as nee ded for anxiety 12/10/2013 01/27/2014 Inactive Xanax 0.25 mg tablet RxNorm: 277892 1 Tablet(s) PO Q8H 10/20/2013 Inactive Zoloft 50 mg tablet RxNorm: 862926 1/2 Tablet(s) PO x 6 days then on1 tablet daily 10/20/2013 11/18/2013 Inactive Loestrin Fe 06/01 (28) 1 mg-20 mcg tablet RxNorm: 3103770 1 Table t(s) PO QD 10/20/2013 05/03/2014 Inactive phenazopyridine 100 mg tablet RxNorm: 8805554 1 Tablet(s) PO Q8H 06/26/2013 Inactive Macrobid 100 mg capsule RxNorm: 832904 1 Capsule(s) PO BID 06/25/19 14 07/04/2013 Inactive phenazopyridine 100 mg tablet RxNorm: 6123132 1 Tablet(s) PO Q8H 06/24/2013 Inactive Macrobid 100 mg capsule RxNorm: 768880 1 Capsule(s) PO BID 07/25/19 11 08/02/2010 Inactive Apri 0.15 mg-30 mcg tablet RxNorm: 345229 1 Tablet(s) PO QD As directed. No Start Date 06/23/2013 Inactive omeprazole 40 mg capsule,delayed release RxNorm: 740833 1 Capsule(s) PO QD for stomach No Start Date 06/23/2013 Inactive naproxen 500 mg tablet RxNorm: 424769 1 Tablet(s) PO BID No Start D ate 06/15/2014 Inactive hydrocodone 10 mg-acetaminophen 325 mg tablet RxNorm: 693188 Tablet(s) PO as needed for pain No Start Date 12/22/2015 Inactive Zoloft 50 mg tablet RxNorm: 879364 1 Tablet(s) PO QD No Start Date Inactive hydrocodone 5 mg-acetaminophen 325 mg tablet RxNorm: 199706 1 Tablet(s) PO QID as needed for pain No Start Date 09/14/2013 Inactive Medication Administered No Medication Administered data Immunizations No Immunization data Results Observation Observation Code Item Item Code Result Date S ervice Location LIPASE 32814 LIPASE 14 IU/L 01/28/2014 Unknown COMPLETE BLOOD COUNT [id number] WBC 6.5 10e9/L 01/29/20 14 Unknown COMPLETE BLOOD COUNT [id number] RBC 4.54 10e12/L 2013 Unknown COMPLETE BLOOD COUNT [id number] HGB 12.1 g/dL 4 Unknown COMPLETE BLOOD COUNT [id number] HCT DET 38.0 % 4 Unknown COMPLETE BLOOD COUNT [id number] MCV 83.7 fL 4 Unknown COMPLETE BLOOD COUNT [id number] MCH 26.7 pg 4 Unknown COMPLETE BLOOD COUNT [id number] MCHC 31.8 g/dL 4 Unknown COMPLETE BLOOD COUNT [id number] PLT 218 10e9/L 01/29/20 14 Unknown COMPLETE BLOOD COUNT [id number] MPV 12.8 fL 4 Unknown COMPLETE BLOOD COUNT [id number] RACHNA % 56.5 % 4 Unknown COMPLETE BLOOD COUNT [id number] LY % 32.3 % 4 Unknown COMPLETE BLOOD COUNT [id number] MON % 8.6 % 4 Unknown COMPLETE BLOOD COUNT [id number] EOS % 2.1 % 4 Unknown COMPLETE BLOOD COUNT [id number] BASO % 0.5 % 4 Unknown COMPLETE BLOOD COUNT [id number] RDW 18.4 % 4 Unknown COMPLETE BLOOD COUNT [id number] ABS RACHNA 3.67 10e9/L 014 Unknown COMPLETE BLOOD COUNT [id number] ABS LYMPH 2.10 10e9/L 014 Unknown COMPLETE BLOOD COUNT [id number] ABS MONO 0.56 10e9/L 014 Unknown COMPLETE BLOOD COUNT [id number] ABS EOS 0.14 10e9/L 014 Unknown COMPLETE BLOOD COUNT [id number] ABS BASO 0.03 10e9/L 014 Unknown COMPLETE BLOOD COUNT [id number] RDW-SD 55.5 fL 4 Unknown COMPREHENSIVE METABOLIC 00860 AST 13 U/L 2013 Unknown COMPREHENSIVE METABOLIC 38049 ALT 7 IU/L 2013 Unknown COMPREHENSIVE METABOLIC 97093 BUN 8 MG/DL 2013 Unknown COMPREHENSIVE METABOLIC 50330 ALBUMIN 4.5 GM/DL 2013 Unknown COMPREHENSIVE METABOLIC 38873 CHLORIDE 106 MMOL/L 01/28 Unknown COMPREHENSIVE METABOLIC 85670 BILI TOT 0.4 MG/DL 2013 Unknown COMPREHENSIVE METABOLIC 20487 ALK PHOS 55 U/L 2013 Unknown COMPREHENSIVE METABOLIC 98634 SODIUM 138 MMOL/L 01/28 Unknown COMPREHENSIVE METABOLIC 95420 CREATININE 0.73 MG/DL 01/11 Unknown COMPREHENSIVE METABOLIC 48801 CALCIUM 9.9 MG/DL 2013 Unknown COMPREHENSIVE METABOLIC 53498 POTASSIUM 3.8 MMOL/L 01/28 Unknown COMPREHENSIVE METABOLIC 15883 PROT TOT 7.4 GM/DL 2013 Unknown COMPREHENSIVE METABOLIC 78526 Glucose 96 MG/DL 2013 Unknown COMPREHENSIVE METABOLIC 84323 BICARB 27 MMOL/L 2013 Unknown COMPREHENSIVE METABOLIC 48123 ANION GAP 5 MEQ/L 2013 Unknown AMYLASE 45437 AMYLASE 42 IU/L 01/28/2014 Unknown GFR CALC [id number] GFR AA >60 ML/MIN 01/28/2014 Unknown GFR CALC [id number] GFR NON-AA >60 ML/MIN 01/28/2014 Unknown Procedures Procedure Codes Date URINALYSIS NONAUTO W/O SCOPE CPT-4: 99306 06/05/2019 CEFTRIAXONE SODIUM INJECTION CPT-4: J0696 06/05/2019 THER/PROPH/DIAG INJ SC/IM CPT-4: 26618 06/05/2019 URINE CULTURE/ COLONY COUNT CPT-4: 56858 06/05/2019 URINE CULTURE/ COLONY COUNT CPT-4: 41430 03/02/2019 THER/PROPH/DIAG INJ SC/IM CPT-4: 59780 02/16/2019 URINE CULTURE/ COLONY COUNT CPT-4: 87431 02/16/2019 URINALYSIS NONAUTO W/O SCOPE CPT-4: 72297 02/16/2019 URINE TEST CPT-4: 42255 02/16/2019 THER/PROPH/DIAG INJ SC/IM CPT-4: 19203 05/21/2018 THER/PROPH/DIAG INJ SC/IM CPT-4: 23881 11/26/2017 THER/PROPH/DIAG INJ SC/IM CPT-4: 46755 08/27/2017 THER/PROPH/DIAG INJ SC/IM CPT-4: 21893 06/06/2017 URINALYSIS NONAUTO W/O SCOPE CPT-4: 52340 06/06/2017 GC/CHLAMYDIA DNA ([facility]) CPT-4: 38369|27285 8 URINE CULTURE/ COLONY COUNT CPT-4: 81498 06/06/2017 THER/PROPH/DIAG INJ SC/IM CPT-4: 26337 01/04/2017 SPECIMEN HANDLING OFFICE-LAB CPT-4: 83776 10/18/2016 THER/PROPH/DIAG INJ SC/IM CPT-4: 86711 10/12/2016 INFLUENZA ASSAY W/OPTIC CPT-4: 05209 08/08/2016 THER/PROPH/DIAG INJ SC/IM CPT-4: 68184 07/25/2016 THER/PROPH/DIAG INJ SC/IM CPT-4: 62022 05/03/2016 THER/PROPH/DIAG INJ SC/IM CPT-4: 72757 02/20/2016 URINE TEST CPT-4: 81033 02/20/2016 AEROBIC WOUND CULTURE & STN CPT-4: 63471 12/23/2015 THER/PROPH/DIAG INJ SC/IM CPT-4: 39654 11/07/2015 URINE TEST CPT-4: 36632 11/07/2015 THER/PROPH/DIAG INJ SC/IM CPT-4: 76040 08/01/2015 THER/PROPH/DIAG INJ SC/IM CPT-4: 78172 05/11/2015 THER/PROPH/DIAG INJ SC/IM CPT-4: 43297 02/16/2015 THER/PROPH/DIAG INJ SC/IM CPT-4: 46194 11/29/2014 THER/PROPH/DIAG INJ SC/IM CPT-4: 19579 09/09/2014 URINE TEST CPT-4: 39105 06/16/2014 THER/PROPH/DIAG INJ SC/IM CPT-4: 48550 06/16/2014 ROUTINE VENIPUNCTURE CPT-4: 47501 10/07/2013 COMPLETE CBC W/AUTO DIFF WBC CPT-4: 92802 10/07/2013 CHORIONIC GONADOTROPIN TEST CPT-4: 59227 10/07/2013 URINE TEST CPT-4: 80647 09/15/2013 URINALYSIS NONAUTO W/O SCOPE CPT-4: 02249 06/24/2013 URINE CULTURE/ COLONY COUNT CPT-4: 51951 06/24/2013 URINE TEST CPT-4: 85672 09/08/2010 URINALYSIS NONAUTO W/O SCOPE CPT-4: 71974 07/24/2010 URINE CULTURE/ COLONY COUNT CPT-4: 00912 07/24/2010 DESTRUCT PREMALG LESION (Cryosurgery) CPT-4: 13488 DESTRUCT PREMALG LES 2-14 CPT-4: 59684 03/08/2010 Vital Signs Date Vital 06/05/2019 Blood Pressure 1: 131/82 Code: 8480-6 BMI: 26.3 Code: 08686-2 Heart Rate 1: 109 bpm Height: 5'9" Respiratory Rate: 16 bpm SpO2: 99% Tempera ture: 36.7 (C) / 98.1 (F) Weight: 178 lbs 03/16/2019 Blood Pressure 1: 132/86 Code: 8480-6 Heart Rate 1: 73 bpm SpO2: 99% Temperature: 36.6 (C) / 97.9 (F) Weight: 158 lbs 03/03/2018 Blood Pressure 1: 120/88 Code: 8480-6 BMI: 23.9 Code: 44417-3 Heart Rate 1: 81 bpm Height: 5'9" Respiratory Rate: 18 bpm SpO2: 99% Tempera ture: 36.1 (C) / 97.0 (F) Weight: 162 lbs 10/18/2016 Blood Pressure 1: 108/78 Code: 8480-6 BMI: 22.6 Code: 73000-8 Heart Rate 1: 100 bpm Height: 5'9" Respiratory Rate: 20 bpm SpO2: 98% Tempera ture: 37.1 (C) / 98.8 (F) Weight: 153 lbs 08/08/2016 Blood Pressure 1: 114/78 Code: 8480-6 Heart Rate 1: 102 bpm Respiratory Rate: 20 bpm SpO2: 98% Temperature: 36.4 (C) / 97.6 (F) We ight: 152 lbs 05/15/2016 Blood Pressure 1: 124/80 Code: 8480-6 BMI: 23.2 Code: 25428-3 Heart Rate 1: 100 bpm Height: 5'9" Respiratory Rate: 20 bpm Temperature: 37 .0 (C) / 98.6 (F) Weight: 157 lbs 12/23/2015 Blood Pressure 1: 124/78 Code: 8480-6 BMI: 23.0 Code: 40427-1 Heart Rate 1: 92 bpm Height: 5'9" Respiratory Rate: 20 bpm SpO2: 97% Tempera ture: 36.9 (C) / 98.5 (F) Weight: 156 lbs 01/26/2015 Blood Pressure 1: 118/78 Code: 8480-6 BMI: 21.3 Code: 82012-2 Heart Rate 1: 100 bpm Height: 5'9" Respiratory Rate: 20 bpm SpO2: 97% Tempera ture: 36.6 (C) / 97.8 (F) Weight: 144 lbs 06/16/2014 Blood Pressure 1: 118/78 Code: 8480-6 BMI: 23.5 Code: 02055-4 Heart Rate 1: 78 bpm Height: 5'9" Respiratory Rate: 18 bpm Temperature: 36 .1 (C) / 97.0 (F) Weight: 159 lbs 01/28/2014 Blood Pressure 1: 124/78 Code: 8480-6 BMI: 23.2 Code: 08820-7 Heart Rate 1: 88 bpm Height: 5'9" Respiratory Rate: 22 bpm Temperature: 36 .1 (C) / 97.0 (F) Weight: 157 lbs 12/10/2013 Blood Pressure 1: 124/70 Code: 8480-6 BMI: 23.0 Code: 75824-7 Heart Rate 1: 82 bpm Height: 5'9" Respiratory Rate: 20 bpm Temperature: 36 .2 (C) / 97.2 (F) Weight: 156 lbs 10/20/2013 Blood Pressure 1: 118/82 Code: 8480-6 Heart Rate 1: 84 bpm Respiratory Rate: 22 bpm Temperature: 36.5 (C) / 97.7 (F) Weight: 150 lbs 10/07/2013 Blood Pressure 1: 120/80 Code: 8480-6 BMI: 22.2 Code: 93804-0 Heart Rate 1: 68 bpm Height: 5'9" Respiratory Rate: 22 bpm Temperature: 36 .2 (C) / 97.2 (F) Weight: 150 lbs 09/15/2013 Blood Pressure 1: 118/68 Code: 8480-6 BMI: 22.0 Code: 03529-6 Heart Rate 1: 78 bpm Height: 5'9" Respiratory Rate: 20 bpm Temperature: 36 .1 (C) / 97.0 (F) Weight: 149 lbs 06/24/2013 Blood Pressure 1: 112/74 Code: 8480-6 Heart Rate 1: 74 bpm Respiratory Rate: 20 bpm Temperature: 36.6 (C) / 97.9 (F) Weight: 150 lbs 03/05/2013 Blood Pressure 1: 126/88 Code: 8480-6 BMI: 23.5 Code: 33881-3 Heart Rate 1: 80 bpm Height: 5'9" Respiratory Rate: 20 bpm Temperature: 36 .6 (C) / 97.9 (F) Weight: 159 lbs 02/09/2013 Blood Pressure 1: 110/68 Code: 8480-6 BMI: 21.9 Code: 21451-4 Heart Rate 1: 74 bpm Height: 5'9" Respiratory Rate: 22 bpm Temperature: 36 .8 (C) / 98.2 (F) Weight: 148 lbs 09/08/2010 Blood Pressure 1: 124/90 Code: 8480-6 BMI: 21.4 Code: 81046-0 Height: 5'10" Temperature: 36.4 (C) / 97.6 [...] painful Encounters Encounter Performer Location Codes Date ([id number]) OFFICE/OUTPATIENT VISIT EST Diagnosis: Dysuria[ICD10: R30.0] Diagnosis: Pelvic pain in female[ICD10: R10.2] Keyanna TALAMANTES [employer] CPT-4: 31292 06/05/2019 ([id number]) OFFICE/OUTPATIENT VISIT EST Diagnosis: Left wrist pain[ICD10: M25.532] Diagnosis: Swelling of left upper extremity[ICD10: M79.89] Keyanna TALAMANTES [employer] CPT-4: 41034 03/16/2019 ([id number]) NURSE/OUTPATIENT VISIT EST Diagnosis: Urinary tract infection[ICD10: N39.0] Josefa TALAMANTES [employer] CPT-4: 78662 03/02/2019 ([id number]) NURSE/OUTPATIENT VISIT EST Diagnosis: Irregular menstruation, unspecified[ICD10: N92.6] Diagnosis: Urinary tract infection[ICD10: N39.0] Josefa TALAMANTES [employer] CPT-4: 97218 02/16/2019 ([id number]) NURSE/OUTPATIENT VISIT EST Diagnosis: Irregular menstruation, unspecified[ICD10: N92.6] Josefa TALAMANTES [employer] CPT-4: 18673 05/21/2018 ([id number]) OFFICE/OUTPATIENT VISIT EST Diagnosis: Irregular menstruation, unspecified[ICD10: N92.6] Diagnosis: Diseases of lips[ICD10: K13.0] Diagnosis: 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] Keyanna TALAMANTES DO [facility] CPT-4: 96012 03/03/2018 ([id number]) NURSE/OUTPATIENT VISIT EST Diagnosis: Irregular menstruation, unspecified[ICD10: N92.6] Josefa TALAMANTES DO [facility] CPT-4: 44110 11/26/2017 ([id number]) OFFICE/OUTPATIENT VISIT EST Diagnosis: Irregular menstruation, unspecified[ICD10: N92.6] Josefa TALAMANTES DO [facility] CPT-4: 43401 08/27/2017 ([id number]) OFFICE/OUTPATIENT VISIT EST Diagnosis: Dysuria[ICD10: R30.0] Diagnosis: Irregular menstruation, unspecified[ICD10: N92.6] Josefa TALAMANTES DO [facility] CPT-4: 60890 06/06/2017 ([id number]) OFFICE/OUTPATIENT VISIT EST Diagnosis: Irregular menstruation, unspecified[ICD10: N92.6] Josefa TALAMANTES DO [facility] CPT-4: 07207 01/04/2017 ([id number]) PREV VISIT EST AGE 18-39 Diagnosis: Encounter for general adult medical examination without abnormal findings[ICD10: Z00.00] Diagnosis: Encounter for gynecological examination (general) (routine) without abnormal findings[ICD10: Z01.419] Diagnosis: Gastro-esophageal reflux disease without esophagitis[ICD10: K21.9] Diagnosis: Dysphagia, pharyngeal phase[ICD10: R13.13] Josefa TALAMANTES DO [facility] CPT-4: 70300 10/18/2016 ([id number]) OFFICE/OUTPATIENT VISIT EST Diagnosis: Irregular menstruation, unspecified[ICD10: N92.6] Josefa TALAMANTES DO [facility] CPT-4: 33162 10/12/2016 ([id number]) OFFICE/OUTPATIENT VISIT EST Diagnosis: Fever, unspecified[ICD10: R50.9] Diagnosis: Influenza due to identified novel influenza A virus with other respiratory manifestations[ICD10: J09.X2] CatrinaBrenda TALAMANTES DO [facility] CPT-4: 89222 08/08/2016 ([id number]) OFFICE/OUTPATIENT VISIT EST Diagnosis: Irregular menstruation, unspecified[ICD10: N92.6] Josefa TALAMANTES DO [facility] CPT-4: 05014 07/25/2016 ([id number]) OFFICE/OUTPATIENT VISIT EST Diagnosis: Right upper quadrant pain[ICD10: R10.11] Diagnosis: Unspecified abdominal pain[ICD10: R10.9] Josefa TALAMANTES DO [facility] CPT-4: 34129 05/15/2016 ([id number]) OFFICE/OUTPATIENT VISIT EST Diagnosis: Irregular menstruation, unspecified[ICD10: N92.6] Josefa TALAMANTES DO [facility] CPT-4: 13316 05/03/2016 ([id number]) OFFICE/OUTPATIENT VISIT EST Diagnosis: Irregular menstruation, unspecified[ICD10: N92.6] Josefa TALAMANTES DO [facility] CPT-4: 50443 02/20/2016 OFFICE/OUTPATIENT VISIT EST Diagnosis: Cutaneous abscess of buttock[ICD10: L02.31] Kitty Caldera JOSEFA TALAMANTES DO [facility] CPT-4: 20759 12/23/2015 ([id number]) OFFICE/OUTPATIENT VISIT EST Diagnosis: Irregular menstruation, unspecified[ICD10: N92.6] Josefa TALAMANTES DO [facility] CPT-4: 98031 11/07/2015 ([id number]) OFFICE/OUTPATIENT VISIT EST Diagnosis: Irregular menstruation, unspecified[ICD10: N92.6] Josefa TALAMANTES DO [facility] CPT-4: 10195 08/01/2015 ([id number]) OFFICE/OUTPATIENT VISIT EST Diagnosis: Irregular menstruation, unspecified[ICD10: N92.6] Josefa TALAMANTES DO [facility] CPT-4: 35065 05/11/2015 ([id number]) OFFICE/OUTPATIENT VISIT EST Diagnosis: Irregular menstruation, unspecified[ICD10: N92.6] Josefa TALAMANTES [facility] CPT-4: 53329 02/16/2015 OFFICE/OUTPATIENT VISIT EST Diagnosis: SINUSITIS, ACUTE[ICD9: 461.9] Malgorzata TALAMANTES DO [facility] CPT-4: 65122 01/26/2015 ([id number]) OFFICE/OUTPATIENT VISIT EST Diagnosis: IRREGULAR MENSTRUATION[ICD9: 626.4] Joesfa TALAMANTES DO [facility] CPT-4: 35255 11/29/2014 ([id number]) OFFICE/OUTPATIENT VISIT EST Diagnosis: IRREGULAR MENSTRUATION[ICD9: 626.4] Josefa TALAMANTES [facility] CPT-4: 14216 09/09/2014 ([id number]) OFFICE/OUTPATIENT VISIT EST Diagnosis: IRREGULAR MENSTRUATION[ICD9: 626.4] Diagnosis: General counseling and advice on contraceptive management[ICD9: V25.09] Diagnosis: Anxiety and depression[ICD9: 300.4] Malgorzata VillanuevaErinjuanjo TALAMANTES [facility] CPT-4: 66821 06/16/2014 OFFICE/OUTPATIENT VISIT EST Diagnosis: Right upper quadrant pain[ICD9: 789.01] Malgorzata VillanuevaErinjuanjo TALAMANTES DO [facility] CPT-4: 66413 01/28/2014 OFFICE/OUTPATIENT VISIT EST Diagnosis: Right upper quadrant pain[ICD9: 789.01] Malgorzata VillanuevaErinjuanjo TALAMANTES DO [facility] CPT-4: 08008 12/10/2013 OFFICE/OUTPATIENT VISIT EST Diagnosis: Anxiety and depression[ICD9: 300.4] Malgorzata VillanuevaErinjuanjo ALANIZ SMaria Teresa TALAMANTES [facility] CPT-4: 73425 10/20/2013 OFFICE/OUTPATIENT VISIT EST Diagnosis: Menorrhagia[ICD9: 626.2] Malgorzata Janel JOSEFA RIVERA [facility] CPT-4: 05296 10/07/2013 OFFICE/OUTPATIENT VISIT EST Diagnosis: IRREGULAR MENSTRUATION[ICD9: 626.4] Malgorzata TALAMANTES DO [employer] CPT-4: 39916 09/15/2013 OFFICE/OUTPATIENT VISIT EST Diagnosis: HEMATURIA NOS[ICD9: 599.70] Diagnosis: Abdominal discomfort in right upper quadrant[ICD9: 789.01] Malgorzata TALAMANTES DO [facility] CPT-4: 83817 06/24/2013 ([id number]) OFFICE/OUTPATIENT VISIT EST Diagnosis: ABDOMINAL PAIN[ICD9: 789.00] Diagnosis: GERD[ICD9: 530.81] Josefa TALAMANTES [employer] CPT-4: 16288 03/05/2013 OFFICE/OUTPATIENT VISIT EST Diagnosis: General counseling and advice on contraceptive management[ICD9: V25.09] Diagnosis: IRREGULAR MENSTRUATION[ICD9: 626.4] Malgorzata TALAMANTES [employer] CPT-4: 68013 02/09/2013 ([id number]) OFFICE/OUTPATIENT VISIT EST Justine TALAMANTES DO [facility] CPT-4: 11068 09/08/2010 ([id number]) OFFICE/OUTPATIENT VISIT EST Justine TALAMANTES [employer] [facility] CPT-4: 21488 07/24/2010 Plan of Care Planned Activity Notes [...] ICD-10 : R30.0 06/05/2019 Appointment: Keyanna Mejía [address] [place], [place] [id number] FOLLOW UP 06/05/2019 Visit Diagnosis [...] : M25.532 03/16/2019 Appointment: Keyanna Mejía [address] Hospital Follow Up 03/16/2019 Appointment: Josefa Talamantes WPtel: [address] [place], [place] [phone] [place] UA 03/02/2019 Appointment: Josefa Talamantes WPtel: [address] [place], [place] [phone] [place] INJECTION 02/16/2019 Appointment: Josefa Talamantes WPtel: [address] [place], [place] [phone] [place] INJECTION 05/21/2018 Visit Diagnosis Plan: Diseases [...] performed in office and negative. 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 had pap october of 2016. not due until 2019 or patient turns 29. ICD-9 : 626.4 ICD-10 : N92.6 03/03/2018 Appointment: Keyanna Mejía 504 [id number] ACUTE ILLNESS 03/03/2018 Patient Education: Patient Medication Summary Completed 03/03/2018 Care Plan: US EXAM OF HEAD AND NECK thyroid LOIN C : 17976-5 Pending 03/03/2018 Appointment: Josefa Talamantes WPtel: [address] [place], [place] [phone] [place] CANCELED 02/27/2018 Appointment: Josefa Talamantes WPtel: [address] [place], [place] [phone] [place] INJECTION 11/26/2017 Patient Education: Patient Medication Summary Completed 11/26/2017 Appointment: Josefa Talamantes WPtel: [address] [place], [place] [phone] [place] INJECTION 08/27/2017 Patient Education: Patient Medication Summary Completed 08/27/2017 Appointment: Josefa Talamantes WPtel: [address] [place], [place] [phone] [place] INJECTION 06/06/2017 Patient Education: Patient Medication Summary Completed 06/06/2017 Appointment: Josefa Talamantes WPtel: [address] [place], [place] [phone] [place] INJECTION 01/04/2017 Patient Education: Patient Medication Summary Completed 01/04/2017 Appointment: Josefa Talamantes WPtel: [address] [place], [place] [phone] [place] 11/19 lm `sl 11/21 lm `sl NO SHOW 11/22/19 Patient Education: Patient Medication Summary Completed 10/22/2016 Care Plan: US EXAM OF HEAD AND NECK Thyroid Ultrasound LOIN C : 84073-2 Pending 10/22/2016 Visit Diagnosis Plan: Gastro-esophageal reflux [...] : R13.13 10/18/2016 Appointment: Josefa Talamantes WPtel: [address] [place], [place] [phone] [place] 6/7 lm `sl Annual Well Visit 10/18/2016 Patient Education: Patient Medication Summary Completed 10/18/2016 Appointment: Josefa Talamantes WPtel: [address] [place], [place] [phone] [place] INJECTION 10/12/2016 Patient Education: Patient Medication Summary Completed 10/12/2016 Visit Diagnosis Plan: Influenza due to i dentified novel influenza A virus with other respiratory manifestations Discussion: Flu A positive Rx as above Supportive care otherwise Contagious precautions discussed Notify kids' provider of exposure for their instructions ICD-9 : 488.02 ICD-10 : J09.X2 08/08/2016 Appointment: Catrina Bran [address] [place], [place] [phone] [place] ACUTE ILLNESS 08/08/2016 Patient Education: Patient Medication Summary Completed 08/08/2016 Appointment: Josefa Talamantes WPtel: [address] [place], [place] [phone] [place] INJECTION 07/25/2016 Patient Education: Patient Medication Summary Completed 07/25/2016 Visit Plan: Finish abx and then recultur e 48hrs after completion Add levsin and zorvolex 05/15/2016 Appointment: Josefa Talamantes WPtel: [address] [place], [place] [id number] [place] 1/2 lm `sl /3 confirmed~ Hospital Follow Up 0 05/15/2016 Patient Education: Patient Medication Summary Completed 05/15/2016 Appointment: Catrina Bran [address] [place], [place] [phone] [place] 05/09 admitted into the hospital last night~sl ACUTE ILLNESS 05/09/2016 Appointment: Josefa Talamantes WPtel: [address] [place], [place] [phone] [place] INJECTION 05/03/2016 Patient Education: Patient Medication Summary Completed 05/03/2016 Appointment: Josefa Talamantes WPtel: [address] [place], [place] [phone] [place] INJECTION 02/20/2016 Patient Education: Patient Medication [...] C&S obtained 12/23/2015 Appointment: Kitty Caldera WPtel: [address] [place], [place] [phone] [place] ACUTE ILLNESS 12/23/2015 Patient Education: Patient Medication Summary Completed 12/23/2015 Appointment: Josefa Talamantes WPtel: [address] [place], [place] [phone] [place] INJECTION 11/07/2015 Patient Education: Patient Medication Summary Completed 11/07/2015 Appointment: Josefa Talamantes WPtel: [address] [place], [place] [phone] [place] INJECTION 08/01/2015 Patient Education: Patient Medication Summary Completed 08/01/2015 Appointment: Josefa Talamantes WPtel: [address] [place], [place] [phone] [place] INJECTION 05/11/2015 Patient Education: Patient Medication Summary Completed 05/11/2015 Appointment: Malgorzata Islas WPtel: [address] [place], [place] [phone] [place] PAP 04/05/2015 Appointment: Josefa Talamantes WPtel: [address] [place], [place] [phone] [place] INJECTION 02/16/2015 Patient Education: Patient Medication Summary Completed 02/16/2015 Visit Plan: Daily nasal saline rinses Fl onase nasal spray and daily Zyrtec Medrol dose pack Z-jhonathan as directed 01/26/2015 Appointment: Malgorzata Islas WPtel: [address] [place], [place] [phone] [place] ACUTE ILLNESS 01/26/2015 Patient Education: Patient Medication Summary Completed 01/26/2015 Appointment: Josefa Talamantes WPtel: [address] [place], [place] [phone] [place] INJECTION 11/29/2014 Patient Education: Patient Medication Summary Completed 11/29/2014 Appointment: Josefa Talamantes WPtel: [address] [place], [place] [phone] [place] INJECTION 09/09/2014 Patient Education: Patient Medication Summary Completed 09/09/2014 Appointment: Malgorzata Islas WPtel: [address] [place], [place] [phone] [place] FOLLOW UP 06/16/2014 Patient Education: Patient Medication Summary Completed 06/16/2014 Appointment: Malgorzata Islas WPtel: [address] [place], [place] [phone] 06/02/14 appointment scheduled 06/03/14 no showed PAP 06/03/2014 Appointment: Malgorzata Islas WPtel: [address] [place], [place] [phone] [place] FOLLOW UP 01/28/2014 Patient Education: Patient Medication Summary Completed 01/28/2014 Care Plan: COMPREH[place] METAB[place] : [address]-8 Ordered 01/28/2014 Care Plan: AMYLASE Pending 4 Appointment: Malgorzata Islas WPtel: [address] [place], [place] [phone] [place] FOLLOW UP 12/10/2013 Patient Education: Patient Medication Summary Completed 12/10/2013 Appointment: Malgorzata Islas WPtel: [address] [place], [place] [phone] [place] 11/11 vm 11/12 No Show FOLLOW UP 11/12/2013 Appointment: Malgorzata Islas WPtel: [address] [place], [place] [phone] [place] FOLLOW UP 10/20/2013 Patient Education: Patient Medication Summary Completed 10/20/2013 Visit Plan: Quantitative Hcg and CBC tod ay. Transvaginal/Transabdominal sonogram stat Discussed with [employer]PERATING ENGINEER and [facility] 343 so will recheck in 1week as long as not worsening 10/07/2013 Appointment: Malgorzata Islas WPtel: [address] [place] [address] ACUTE ILLNESS 10/07/2013 Patient Education: Patient Medication Summary Completed 10/07/2013 Appointment: Malgorzata Islas WPtel: [address] [place] [address] ACUTE ILLNESS 09/15/2013 Patient Education: Patient Medication Summary Completed 09/15/2013 Appointment: Malgorzata Islas WPtel: [address] [place] [address] ACUTE ILLNESS 06/24/2013 Patient Education: Patient Medication Summary Completed 06/24/2013 Appointment: Malgorzata Islas WPtel: [address] [place] [address] [place] appt was scheduled today then patient no showed the visit ACUTE ILLNESS 05/21/2013 Visit Plan: Check CMP, CBC, UA CT scan o f abdomen Omeprazole 03/05/2013 Appointment: Josefa Talamantes WPtel: [address] [place] [address] ACUTE ILLNESS 03/05/2013 Appointment: Josefa Talamantes WPtel: [address] [place] [address] 03/02 canceled, wrong patient FOLLOW UP Patient Education: Patient Medication Summary Completed 03/05/2013 Appointment: Malgorzata Islas WPtel: [address] [place] [address] ACUTE ILLNESS 02/09/2013 Patient Education: Patient Medication Summary Completed 02/09/2013 Appointment: Justine Ortega WPtel: [address] [place] [address] ACUTE ILLNESS 09/08/2010 Patient Education: Patient Medication Summary Completed 09/08/2010 Appointment: Justine Ortega WPtel: [address] [place], [place] [phone] [place] PAP 08/08/2010 Appointment: Justine Ortega WPtel: [address] [place], [place] [phone] ACUTE ILLNESS 07/24/2010 Patient Education: Patient Medication Summary Completed 07/24/2010 Visit Plan: All warts shaved with 11-rekha de scalpel and then cryotherapy x3 Will followup with DNCB treatment 03/08/2010 Appointment: Josefa Talamantes WPtel: [address] [place], [place] [id number] ACUTE ILLNESS 03/08/2010 Patient Education: Patient Medication Summary Completed 03/08/2010 Appointment: Josefa Talamantes WPtel: [address] [place], [place] [phone] [place] PAP 09/14/2009 Referral: Roney Galloway WPtel: [address] Referral Initiated Referral: Brian Floyd WPtel: [address] Referral Initiated Referral: Referral Initiated Instructions [...] CBC today. Transvaginal/Transabdominal sonogram stat Discussed with [employer]PERATING ENGINEER and [facility] 343 so will recheck in [...]
--- OUTSIDE RECORDS SUMMARY | 2019-12-11 22:05 | XMS REPORT | CCD ---
Author Author Brenda Talamantes D.O. Organization JOSEFA TALAMANTES DO [facility] Address [address] [place] [address] Phone Care Team Providers Care Medical Billing And Coding Specialist Name Role Phone Josefa Talamantes D.O., PP Unavailable CCM Unavailable Summary Purpose Interface Exchange Insurance Providers Payer name Policy type / Coverage type Covered alliance party ID Effective Begin Date Effective End Date [facility] Commercial Insurance [id number] Unknown Family History Family History data not found Social History Social History Element Codes Description Effective Dates Tobacco history SNOMED CT: 540190585 Unknown if ever smoked 01/12 Allergies, Adverse [...] Bactrim DS 800 mg-160 mg tablet RxNorm: 933589 1 Tablet(s) Oral two times a day 06/08/2019 06/13/2019 Inactive Bactrim DS 800 mg-160 mg tablet RxNorm: 115837 1 Tablet(s) Oral two times a day 06/08/2019 06/07/2019 Inactive ibuprofen 800 mg tablet RxNorm: 196251 1 Tablet(s) Oral Q8H as needed 03/16/2019 06/05/2019 Inactive Cipro 500 mg tablet RxNorm: 384955 1 Tablet(s) Oral two times a day 03/04/2019 03/11/2019 Inactive Cipro 500 mg tablet RxNorm: 562650 1 Tablet(s) Oral two times a day 03/04/2019 03/03/2019 Inactive Macrobid 100 mg capsule RxNorm: 386543 1 Capsule(s) Oral two ti mes a day 02/16/2019 02/15/2019 Inactive Macrobid 100 mg capsule RxNorm: 744193 1 Capsule(s) Oral two ti mes a [...] 11/24/2017 Inactive Pepcid 40 mg tablet RxNorm: 923715 1 Tablet(s) PO QD 10/18/201603/02 Inactive Depo-Provera 150 mg/mL intramuscular suspension RxNorm: 1000 128 Milliliter(s) 1 Milliliter(s) IM 10/10/2016 06/04/2017 Inactive Tamiflu 75 mg capsule RxNorm: 853320 1 Capsule(s) PO BID 08/08/2016 0 08/12/2016 Inactive Levsin 0.125 mg tablet RxNorm: 2524893 1 Tablet(s) PO TID for fl ank pain 05/15/2016 10/17/2016 Inactive Bactrim DS 800 mg-160 mg tablet RxNorm: 072648 1 Tablet(s) PO BID 0 12/23/2015 01/01/2016 Inactive mupirocin 2 % topical ointment RxNorm: 580002 Application TOP TID 0 12/23/2015 12/29/2015 Inactive Depo-Provera 150 mg/mL intramuscular suspension RxNorm: 1000 128 Milliliter(s) 1 Milliliter(s) IM 11/08/2015 10/09/2016 Inactive Xanax 0.25 mg tablet RxNorm: 252406 TAKE ONE-HALF TO ON E TABLET BY MOUTH NEEDED FOR ANXIETY 04/11/2015 05/10/2015 Inactive Generic For:X ANAX 0.25 MG TABLET 04/11/2015 2:54:57 PM Depo-Provera 150 mg/mL intramuscular suspension RxNorm: 1000 128 Milliliter(s) 1 Milliliter(s) IM 02/15/2015 11/07/2015 Inactive azithromycin 250 mg tablet RxNorm: 703382 2 Tablet(s) P O today, then one tablet on days 2 - 5 01/26/2015 12/22/2015 Inactive Medrol (Jhonathan) 4 mg tablets in a dose pack RxNorm: 718214 Tablet(s) P O 01/26/2015 12/22/2015 Inactive Depo-Provera 150 mg/mL intramuscular suspension RxNorm: 1000 128 1 Milliliter(s) IM 09/06/2014 02/15/2015 Inactive Xanax 0.25 mg tablet RxNorm: 350284 1/2 - 1 Tablet(s) PO as nee ded for anxiety 06/16/2014 04/12/2015 Inactive Zoloft 50 mg tablet RxNorm: 990811 1 Tablet(s) PO QD 06/16/201412/21 Inactive Flexeril [...] 2014 Inactive Xanax 0.25 mg tablet RxNorm: 311881 1/2 - 1 Tablet(s) PO as nee ded for anxiety 01/28/2014 06/15/2014 Inactive naproxen 500 mg tablet RxNorm: 285156 1 Tablet(s) PO BID 12/10/2013 0 01/08/2014 Inactive Zoloft 50 mg tablet RxNorm: 096315 1 Tablet(s) PO QD 12/10/201304/08 Inactive Xanax 0.25 mg tablet RxNorm: 424767 1/2 - 1 Tablet(s) PO as nee ded for anxiety 12/10/2013 01/27/2014 Inactive Xanax 0.25 mg tablet RxNorm: 645550 1 Tablet(s) PO Q8H 10/20/2013 Inactive Zoloft 50 mg tablet RxNorm: 942430 1/2 Tablet(s) PO x 6 days then on1 tablet daily 10/20/2013 11/18/2013 Inactive Loestrin Fe 06/01 (28) 1 mg-20 mcg tablet RxNorm: 6177636 1 Table t(s) PO QD 10/20/2013 05/03/2014 Inactive phenazopyridine 100 mg tablet RxNorm: 4171814 1 Tablet(s) PO Q8H 06/26/2013 Inactive Macrobid 100 mg capsule RxNorm: 098380 1 Capsule(s) PO BID 06/25/19 14 07/04/2013 Inactive phenazopyridine 100 mg tablet RxNorm: 2246724 1 Tablet(s) PO Q8H 06/24/2013 Inactive Macrobid 100 mg capsule RxNorm: 518288 1 Capsule(s) PO BID 07/25/19 11 08/02/2010 Inactive Apri 0.15 mg-30 mcg tablet RxNorm: 899069 1 Tablet(s) PO QD As directed. No Start Date 06/23/2013 Inactive omeprazole 40 mg capsule,delayed release RxNorm: 272163 1 Capsule(s) PO QD for stomach No Start Date 06/23/2013 Inactive naproxen 500 mg tablet RxNorm: 287069 1 Tablet(s) PO BID No Start D ate 06/15/2014 Inactive hydrocodone 10 mg-acetaminophen 325 mg tablet RxNorm: 255845 Tablet(s) PO as needed for pain No Start Date 12/22/2015 Inactive Zoloft 50 mg tablet RxNorm: 970398 1 Tablet(s) PO QD No Start Date Inactive hydrocodone 5 mg-acetaminophen 325 mg tablet RxNorm: 002056 1 Tablet(s) PO QID as needed for pain No Start Date 09/14/2013 Inactive Medication Administered No Medication Administered data Immunizations No Immunization data Results Observation Observation Code Item Item Code Result Date S ervice Location LIPASE 42247 LIPASE 14 IU/L 01/28/2014 Unknown COMPLETE BLOOD COUNT 0049532 WBC 6.5 10e9/L 01/29/20 14 Unknown COMPLETE BLOOD COUNT [id number] RBC 4.54 10e12/L 2013 Unknown COMPLETE BLOOD COUNT [id number] HGB 12.1 g/dL 4 Unknown COMPLETE BLOOD COUNT 1080061 HCT DET 38.0 % 4 Unknown COMPLETE BLOOD COUNT 0400200 MCV 83.7 fL 4 Unknown COMPLETE BLOOD COUNT [id number] MCH 26.7 pg 4 Unknown COMPLETE BLOOD COUNT [id number] MCHC 31.8 g/dL 4 Unknown COMPLETE BLOOD COUNT 7002803 PLT 218 10e9/L 01/29/20 14 Unknown COMPLETE BLOOD COUNT 2998998 MPV 12.8 fL 4 Unknown COMPLETE BLOOD COUNT [id number] RACHNA % 56.5 % 4 Unknown COMPLETE BLOOD COUNT 8648096 LY % 32.3 % 4 Unknown COMPLETE BLOOD COUNT [id number] MON % 8.6 % 4 Unknown COMPLETE BLOOD COUNT 0829000 EOS % 2.1 % 4 Unknown COMPLETE BLOOD COUNT 6198446 BASO % 0.5 % 4 Unknown COMPLETE BLOOD COUNT [id number] RDW 18.4 % 4 Unknown COMPLETE BLOOD COUNT [id number] ABS RACHNA 3.67 10e9/L 014 Unknown COMPLETE BLOOD COUNT [id number] ABS LYMPH 2.10 10e9/L 014 Unknown COMPLETE BLOOD COUNT [id number] ABS MONO 0.56 10e9/L 014 Unknown COMPLETE BLOOD COUNT [id number] ABS EOS 0.14 10e9/L 014 Unknown COMPLETE BLOOD COUNT [id number] ABS BASO 0.03 10e9/L 014 Unknown COMPLETE BLOOD COUNT [id number] RDW-SD 55.5 fL 4 Unknown COMPREHENSIVE METABOLIC 30820 AST 13 U/L 2013 Unknown COMPREHENSIVE METABOLIC 04206 ALT 7 IU/L 2013 Unknown COMPREHENSIVE METABOLIC 06369 BUN 8 MG/DL 2013 Unknown COMPREHENSIVE METABOLIC 86579 ALBUMIN 4.5 GM/DL 2013 Unknown COMPREHENSIVE METABOLIC 05247 CHLORIDE 106 MMOL/L 01/28 Unknown COMPREHENSIVE METABOLIC 62562 BILI TOT 0.4 MG/DL 2013 Unknown COMPREHENSIVE METABOLIC 37088 ALK PHOS 55 U/L 2013 Unknown COMPREHENSIVE METABOLIC 01971 SODIUM 138 MMOL/L 01/28 Unknown COMPREHENSIVE METABOLIC 21881 CREATININE 0.73 MG/DL 01/11 Unknown COMPREHENSIVE METABOLIC 58560 CALCIUM 9.9 MG/DL 2013 Unknown COMPREHENSIVE METABOLIC 00431 POTASSIUM 3.8 MMOL/L 01/28 Unknown COMPREHENSIVE METABOLIC 86940 PROT TOT 7.4 GM/DL 2013 Unknown COMPREHENSIVE METABOLIC 76517 Glucose 96 MG/DL 2013 Unknown COMPREHENSIVE METABOLIC 94036 BICARB 27 MMOL/L 2013 Unknown COMPREHENSIVE METABOLIC 80734 ANION GAP 5 MEQ/L 2013 Unknown AMYLASE 78946 AMYLASE 42 IU/L 01/28/2014 Unknown GFR CALC 6151678 GFR AA >60 ML/MIN 01/28/2014 Unknown GFR CALC [id number] GFR NON-AA >60 ML/MIN 01/28/2014 Unknown Procedures Procedure Codes Date URINE CULTURE/ COLONY COUNT CPT-4: 01223 06/15/2019 URINALYSIS NONAUTO W/O SCOPE CPT-4: 75835 06/05/2019 CEFTRIAXONE SODIUM INJECTION CPT-4: J0696 06/05/2019 THER/PROPH/DIAG INJ SC/IM CPT-4: 93574 06/05/2019 URINE CULTURE/ COLONY COUNT CPT-4: 89883 06/05/2019 URINE CULTURE/ COLONY COUNT CPT-4: 85883 03/02/2019 THER/PROPH/DIAG INJ SC/IM CPT-4: 11366 02/16/2019 URINE CULTURE/ COLONY COUNT CPT-4: 00967 02/16/2019 URINALYSIS NONAUTO W/O SCOPE CPT-4: 80808 02/16/2019 URINE TEST CPT-4: 88375 02/16/2019 THER/PROPH/DIAG INJ SC/IM CPT-4: 84419 05/21/2018 THER/PROPH/DIAG INJ SC/IM CPT-4: 07743 11/26/2017 THER/PROPH/DIAG INJ SC/IM CPT-4: 13710 08/27/2017 THER/PROPH/DIAG INJ SC/IM CPT-4: 44513 06/06/2017 URINALYSIS NONAUTO W/O SCOPE CPT-4: 43453 06/06/2017 GC/CHLAMYDIA DNA (BD-ProbeTe) CPT-4: 39454|21175 8 URINE CULTURE/ COLONY COUNT CPT-4: 60742 06/06/2017 THER/PROPH/DIAG INJ SC/IM CPT-4: 84098 01/04/2017 SPECIMEN HANDLING OFFICE-LAB CPT-4: 22865 10/18/2016 THER/PROPH/DIAG INJ SC/IM CPT-4: 47145 10/12/2016 INFLUENZA ASSAY W/OPTIC CPT-4: 00485 08/08/2016 THER/PROPH/DIAG INJ SC/IM CPT-4: 69644 07/25/2016 THER/PROPH/DIAG INJ SC/IM CPT-4: 45652 05/03/2016 THER/PROPH/DIAG INJ SC/IM CPT-4: 78616 02/20/2016 URINE TEST CPT-4: 79308 02/20/2016 AEROBIC WOUND CULTURE & STN CPT-4: 08908 12/23/2015 THER/PROPH/DIAG INJ SC/IM CPT-4: 71095 11/07/2015 URINE TEST CPT-4: 54147 11/07/2015 THER/PROPH/DIAG INJ SC/IM CPT-4: 59165 08/01/2015 THER/PROPH/DIAG INJ SC/IM CPT-4: 44655 05/11/2015 THER/PROPH/DIAG INJ SC/IM CPT-4: 08679 02/16/2015 THER/PROPH/DIAG INJ SC/IM CPT-4: 96495 11/29/2014 THER/PROPH/DIAG INJ SC/IM CPT-4: 43173 09/09/2014 URINE TEST CPT-4: 88284 06/16/2014 THER/PROPH/DIAG INJ SC/IM CPT-4: 50377 06/16/2014 ROUTINE VENIPUNCTURE CPT-4: 63312 10/07/2013 COMPLETE CBC W/AUTO DIFF WBC CPT-4: 37528 10/07/2013 CHORIONIC GONADOTROPIN TEST CPT-4: 85680 10/07/2013 URINE TEST CPT-4: 12076 09/15/2013 URINALYSIS NONAUTO W/O SCOPE CPT-4: 07112 06/24/2013 URINE CULTURE/ COLONY COUNT CPT-4: 03951 06/24/2013 URINE TEST CPT-4: 40000 09/08/2010 URINALYSIS NONAUTO W/O SCOPE CPT-4: 30392 07/24/2010 URINE CULTURE/ COLONY COUNT CPT-4: 73235 07/24/2010 DESTRUCT PREMALG LESION (Cryosurgery) CPT-4: 45817 DESTRUCT PREMALG LES 2-14 CPT-4: 51393 03/08/2010 Vital Signs Date Vital 06/05/2019 Blood Pressure 1: 131/82 Code: 8480-6 BMI: 26.3 Code: 80765-8 Heart Rate 1: 109 bpm Height: 5'9" Respiratory Rate: 16 bpm SpO2: 99% Tempera ture: 36.7 (C) / 98.1 (F) Weight: 178 lbs 03/16/2019 Blood Pressure 1: 132/86 Code: 8480-6 Heart Rate 1: 73 bpm SpO2: 99% Temperature: 36.6 (C) / 97.9 (F) Weight: 158 lbs 03/03/2018 Blood Pressure 1: 120/88 Code: 8480-6 BMI: 23.9 Code: 70470-0 Heart Rate 1: 81 bpm Height: 5'9" Respiratory Rate: 18 bpm SpO2: 99% Tempera ture: 36.1 (C) / 97.0 (F) Weight: 162 lbs 10/18/2016 Blood Pressure 1: 108/78 Code: 8480-6 BMI: 22.6 Code: 43319-0 Heart Rate 1: 100 bpm Height: 5'9" Respiratory Rate: 20 bpm SpO2: 98% Tempera ture: 37.1 (C) / 98.8 (F) Weight: 153 lbs 08/08/2016 Blood Pressure 1: 114/78 Code: 8480-6 Heart Rate 1: 102 bpm Respiratory Rate: 20 bpm SpO2: 98% Temperature: 36.4 (C) / 97.6 (F) We ight: 152 lbs 05/15/2016 Blood Pressure 1: 124/80 Code: 8480-6 BMI: 23.2 Code: 38877-7 Heart Rate 1: 100 bpm Height: 5'9" Respiratory Rate: 20 bpm Temperature: 37 .0 (C) / 98.6 (F) Weight: 157 lbs 12/23/2015 Blood Pressure 1: 124/78 Code: 8480-6 BMI: 23.0 Code: 94779-0 Heart Rate 1: 92 bpm Height: 5'9" Respiratory Rate: 20 bpm SpO2: 97% Tempera ture: 36.9 (C) / 98.5 (F) Weight: 156 lbs 01/26/2015 Blood Pressure 1: 118/78 Code: 8480-6 BMI: 21.3 Code: 03705-0 Heart Rate 1: 100 bpm Height: 5'9" Respiratory Rate: 20 bpm SpO2: 97% Tempera ture: 36.6 (C) / 97.8 (F) Weight: 144 lbs 06/16/2014 Blood Pressure 1: 118/78 Code: 8480-6 BMI: 23.5 Code: 22917-0 Heart Rate 1: 78 bpm Height: 5'9" Respiratory Rate: 18 bpm Temperature: 36 .1 (C) / 97.0 (F) Weight: 159 lbs 01/28/2014 Blood Pressure 1: 124/78 Code: 8480-6 BMI: 23.2 Code: 74044-1 Heart Rate 1: 88 bpm Height: 5'9" Respiratory Rate: 22 bpm Temperature: 36 .1 (C) / 97.0 (F) Weight: 157 lbs 12/10/2013 Blood Pressure 1: 124/70 Code: 8480-6 BMI: 23.0 Code: 28666-6 Heart Rate 1: 82 bpm Height: 5'9" Respiratory Rate: 20 bpm Temperature: 36 .2 (C) / 97.2 (F) Weight: 156 lbs 10/20/2013 Blood Pressure 1: 118/82 Code: 8480-6 Heart Rate 1: 84 bpm Respiratory Rate: 22 bpm Temperature: 36.5 (C) / 97.7 (F) Weight: 150 lbs 10/07/2013 Blood Pressure 1: 120/80 Code: 8480-6 BMI: 22.2 Code: 61311-4 Heart Rate 1: 68 bpm Height: 5'9" Respiratory Rate: 22 bpm Temperature: 36 .2 (C) / 97.2 (F) Weight: 150 lbs 09/15/2013 Blood Pressure 1: 118/68 Code: 8480-6 BMI: 22.0 Code: 09537-9 Heart Rate 1: 78 bpm Height: 5'9" Respiratory Rate: 20 bpm Temperature: 36 .1 (C) / 97.0 (F) Weight: 149 lbs 06/24/2013 Blood Pressure 1: 112/74 Code: 8480-6 Heart Rate 1: 74 bpm Respiratory Rate: 20 bpm Temperature: 36.6 (C) / 97.9 (F) Weight: 150 lbs 03/05/2013 Blood Pressure 1: 126/88 Code: 8480-6 BMI: 23.5 Code: 03216-1 Heart Rate 1: 80 bpm Height: 5'9" Respiratory Rate: 20 bpm Temperature: 36 .6 (C) / 97.9 (F) Weight: 159 lbs 02/09/2013 Blood Pressure 1: 110/68 Code: 8480-6 BMI: 21.9 Code: 25003-5 Heart Rate 1: 74 bpm Height: 5'9" Respiratory Rate: 22 bpm Temperature: 36 .8 (C) / 98.2 (F) Weight: 148 lbs 09/08/2010 Blood Pressure 1: 124/90 Code: 8480-6 BMI: 21.4 Code: 27452-1 Height: 5'10" Temperature: 36.4 (C) / 97.6 [...] painful Encounters Encounter Performer Location Codes Date ([id number]) NURSE/OUTPATIENT VISIT EST Diagnosis: Urinary tract infection[ICD10: N39.0] Josefa TALAMANTES [facility] CPT-4: 05569 06/15/2019 ([id number]) OFFICE/OUTPATIENT VISIT EST Diagnosis: Dysuria[ICD10: R30.0] Diagnosis: Pelvic pain in female[ICD10: R10.2] Keyanna TALAMANTES [facility] CPT-4: 52957 06/05/2019 ([id number]) OFFICE/OUTPATIENT VISIT EST Diagnosis: Left wrist pain[ICD10: M25.532] Diagnosis: Swelling of left upper extremity[ICD10: M79.89] Keyanna TALAMANTES DO [employer] CPT-4: 18313 03/16/2019 ([id number]) NURSE/OUTPATIENT VISIT EST Diagnosis: Urinary tract infection[ICD10: N39.0] Josefa TALAMANTES [facility] CPT-4: 21629 03/02/2019 ([id number]) NURSE/OUTPATIENT VISIT EST Diagnosis: Irregular menstruation, unspecified[ICD10: N92.6] Diagnosis: Urinary tract infection[ICD10: N39.0] Josefa TALAMANTES [facility] CPT-4: 54899 02/16/2019 ([id number]) NURSE/OUTPATIENT VISIT EST Diagnosis: Irregular menstruation, unspecified[ICD10: N92.6] Josefa TALAMANTES DO [facility] CPT-4: 99429 05/21/2018 ([id number]) OFFICE/OUTPATIENT VISIT EST Diagnosis: Irregular menstruation, unspecified[ICD10: N92.6] Diagnosis: Diseases of lips[ICD10: K13.0] Diagnosis: 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] Keyanna TALAMANTES DO [facility] CPT-4: 43563 03/03/2018 ([id number]) NURSE/OUTPATIENT VISIT EST Diagnosis: Irregular menstruation, unspecified[ICD10: N92.6] Josefa TALAMANTES DO [facility] CPT-4: 15668 11/26/2017 ([id number]) OFFICE/OUTPATIENT VISIT EST Diagnosis: Irregular menstruation, unspecified[ICD10: N92.6] Josefa TALAMANTES DO [facility] CPT-4: 22048 08/27/2017 ([id number]) OFFICE/OUTPATIENT VISIT EST Diagnosis: Dysuria[ICD10: R30.0] Diagnosis: Irregular menstruation, unspecified[ICD10: N92.6] Josefa TALAMANTES DO [facility] CPT-4: 32520 06/06/2017 ([id number]) OFFICE/OUTPATIENT VISIT EST Diagnosis: Irregular menstruation, unspecified[ICD10: N92.6] Josefa TALAMANTES DO [facility] CPT-4: 97943 01/04/2017 ([id number]) PREV VISIT EST AGE 18-39 Diagnosis: Encounter for general adult medical examination without abnormal findings[ICD10: Z00.00] Diagnosis: Encounter for gynecological examination (general) (routine) without abnormal findings[ICD10: Z01.419] Diagnosis: Gastro-esophageal reflux disease without esophagitis[ICD10: K21.9] Diagnosis: Dysphagia, pharyngeal phase[ICD10: R13.13] Josefa TALAMANTES DO [facility] CPT-4: 57883 10/18/2016 ([id number]) OFFICE/OUTPATIENT VISIT EST Diagnosis: Irregular menstruation, unspecified[ICD10: N92.6] Josfea TALAMANTES DO [facility] CPT-4: 25760 10/12/2016 ([id number]) OFFICE/OUTPATIENT VISIT EST Diagnosis: Fever, unspecified[ICD10: R50.9] Diagnosis: Influenza due to identified novel influenza A virus with other respiratory manifestations[ICD10: J09.X2] Catrina TALAMANTES DO [facility] CPT-4: 04939 08/08/2016 ([id number]) OFFICE/OUTPATIENT VISIT EST Diagnosis: Irregular menstruation, unspecified[ICD10: N92.6] Josefa TALAMANTES DO [facility] CPT-4: 02957 07/25/2016 ([id number]) OFFICE/OUTPATIENT VISIT EST Diagnosis: Right upper quadrant pain[ICD10: R10.11] Diagnosis: Unspecified abdominal pain[ICD10: R10.9] Josefa TALAMANTES DO [facility] CPT-4: 95985 05/15/2016 ([id number]) OFFICE/OUTPATIENT VISIT EST Diagnosis: Irregular menstruation, unspecified[ICD10: N92.6] Josefa TALAMANTES DO [facility] CPT-4: 26560 05/03/2016 ([id number]) OFFICE/OUTPATIENT VISIT EST Diagnosis: Irregular menstruation, unspecified[ICD10: N92.6] Josefa TALAMANTES DO [facility] CPT-4: 69725 02/20/2016 OFFICE/OUTPATIENT VISIT EST Diagnosis: Cutaneous abscess of buttock[ICD10: L02.31] Kitty Caldera JOSEFA TALAMANTES DO [facility] CPT-4: 58677 12/23/2015 ([id number]) OFFICE/OUTPATIENT VISIT EST Diagnosis: Irregular menstruation, unspecified[ICD10: N92.6] Josefa Vinita TALAMANTES DO [facility] CPT-4: 18696 11/07/2015 ([id number]) OFFICE/OUTPATIENT VISIT EST Diagnosis: Irregular menstruation, unspecified[ICD10: N92.6] Josefa Vinita TALAMANTES [facility] CPT-4: 02676 08/01/2015 ([id number]) OFFICE/OUTPATIENT VISIT EST Diagnosis: Irregular menstruation, unspecified[ICD10: N92.6] Josefa TALAMANTES DO [facility] CPT-4: 00152 05/11/2015 ([id number]) OFFICE/OUTPATIENT VISIT EST Diagnosis: Irregular menstruation, unspecified[ICD10: N92.6] Josefa TALAMANTES DO [facility] CPT-4: 12506 02/16/2015 OFFICE/OUTPATIENT VISIT EST Diagnosis: SINUSITIS, ACUTE[ICD9: 461.9] Malgorzata TALAMANTES DO [facility] CPT-4: 81795 01/26/2015 ([id number]) OFFICE/OUTPATIENT VISIT EST Diagnosis: IRREGULAR MENSTRUATION[ICD9: 626.4] Josefa TALAMANTES [facility] CPT-4: 63671 11/29/2014 ([id number]) OFFICE/OUTPATIENT VISIT EST Diagnosis: IRREGULAR MENSTRUATION[ICD9: 626.4] Josefa TALAMANTES DO [facility] CPT-4: 59877 09/09/2014 ([id number]) OFFICE/OUTPATIENT VISIT EST Diagnosis: IRREGULAR MENSTRUATION[ICD9: 626.4] Diagnosis: General counseling and advice on contraceptive management[ICD9: V25.09] Diagnosis: Anxiety and depression[ICD9: 300.4] Malgorzata TALAMANTES DO [facility] CPT-4: 25261 06/16/2014 OFFICE/OUTPATIENT VISIT EST Diagnosis: Right upper quadrant pain[ICD9: 789.01] Malgorzata TALAMANTES DO [facility] CPT-4: 37630 01/28/2014 OFFICE/OUTPATIENT VISIT EST Diagnosis: Right upper quadrant pain[ICD9: 789.01] Malgorzata TALAMANTES DO [facility] CPT-4: 60726 12/10/2013 OFFICE/OUTPATIENT VISIT EST Diagnosis: Anxiety and depression[ICD9: 300.4] Malgorzata TALAMANTES DO [facility] CPT-4: 72514 10/20/2013 OFFICE/OUTPATIENT VISIT EST Diagnosis: Menorrhagia[ICD9: 626.2] Malgorzata [facility] CPT-4: 54070 10/07/2013 OFFICE/OUTPATIENT VISIT EST Diagnosis: IRREGULAR MENSTRUATION[ICD9: 626.4] Malgorzata TALAMANTES DO [facility] CPT-4: 37727 09/15/2013 OFFICE/OUTPATIENT VISIT EST Diagnosis: HEMATURIA NOS[ICD9: 599.70] Diagnosis: Abdominal discomfort in right upper quadrant[ICD9: 789.01] Malgorzata TALAMANTES DO [facility] CPT-4: 79096 06/24/2013 ([id number]) OFFICE/OUTPATIENT VISIT EST Diagnosis: ABDOMINAL PAIN[ICD9: 789.00] Diagnosis: GERD[ICD9: 530.81] Josefa TALAMANTES [email or web address] [facility] CPT-4: 20194 03/05/2013 OFFICE/OUTPATIENT VISIT EST Diagnosis: General counseling and advice on contraceptive management[ICD9: V25.09] Diagnosis: IRREGULAR MENSTRUATION[ICD9: 626.4] Malgorzata TALAMANTES [email or web address] [facility] CPT-4: 09976 02/09/2013 ([id number]) OFFICE/OUTPATIENT VISIT EST Justine TALAMANTES DO [facility] CPT-4: 61049 09/08/2010 ([id number]) OFFICE/OUTPATIENT VISIT EST Justine TALAMANTES DO [facility] CPT-4: 18688 07/24/2010 Plan of Care Planned Activity Notes [...] ICD-10 : R30.0 06/05/2019 Appointment: Keyanna Mejía [address] [place], [place] [id number] FOLLOW UP 06/05/2019 Visit Diagnosis [...] ICD-10 : M25.532 03/16/2019 Appointment: Keyanna Mejía [address] [place] [address] Hospital Follow Up 03/16/2019 Appointment: Josefa Talamantes WPtel: [address] [place] [address] US UA 03/02/2019 Appointment: Josefa Talamantes WPtel: [address] [place], [place] [phone] [place] INJECTION 02/16/2019 Appointment: Josefa Talamantes WPtel: [address] [place], [place] [phone] [place] INJECTION 05/21/2018 Visit Diagnosis Plan: Diseases of lips Discussion: ref erral to be sent to dr. galloway for evaluation of mass for possible debridement. instructed patient to apply warm compresses to lip until seen. ICD-9 : 528.5 ICD-10 : K13.0 03/03/2018 Visit Diagnosis Plan: Irregular menstruation, unspecif ied Discussion: urine performed in office and negative. patient to pickle sorter depo prescription and bring back to office [...] E04.1 03/03/2018 Appointment: Keyanna Mejía [address] [place] [id number] ACUTE ILLNESS 03/03/2018 Patient Education: Patient Medication Summary Completed 03/03/2018 Care Plan: US EXAM OF HEAD AND NECK thyroid LOIN C : 82292-5 Pending 03/03/2018 Appointment: Josefa Talamantes WPtel: [address] [place], [place] [phone] US CANCELED 02/27/2018 Appointment: Josefa Talamantes WPtel: [address] [place], [place] [phone] [place] INJECTION 11/26/2017 Patient Education: Patient Medication Summary Completed 11/26/2017 Appointment: Josefa Talamantes WPtel: [address] [place], [place] [phone] [place] INJECTION 08/27/2017 Patient Education: Patient Medication Summary Completed 08/27/2017 Appointment: Josefa Talamantes WPtel: [phone] [place], [place] [phone] [place] INJECTION 06/06/2017 Patient Education: Patient Medication Summary Completed 06/06/2017 Appointment: Josefa Talamantes WPtel: [address] [place], [place] [phone] [place] INJECTION 01/04/2017 Patient Education: Patient Medication Summary Completed 01/04/2017 Appointment: Josefa Talamantes WPtel: [address] [place], [place] [phone] [place] 11/19 lm `sl 11/21 lm `sl NO SHOW 11/22/19 17 Patient Education: Patient Medication Summary Completed 10/22/2016 Care Plan: US EXAM OF HEAD AND NECK Thyroid Ultrasound LOIN C : 41523-9 Pending 10/22/2016 Visit Diagnosis Plan: Encounter for [...] : K21.9 10/18/2016 Appointment: Josefa Talamantes WPtel: [address] [place], [place] [phone] [place] 6/7 lm ` Annual Well Visit 10/18/2016 Patient Education: Patient Medication Summary Completed 10/18/2016 Appointment: Josefa Talamantes WPtel: [address] [place], [place] [phone] [place] INJECTION 10/12/2016 Patient Education: Patient Medication Summary Completed 10/12/2016 Visit Diagnosis Plan: Influenza due to i dentified novel influenza A virus with other respiratory manifestations Discussion: Flu A positive Rx as above Supportive care otherwise Contagious precautions discussed Notify kids' provider of exposure for their instructions ICD-9 : 488.02 ICD-10 : J09.X2 08/08/2016 Appointment: Catrina Bran [address] [place], [place] [id number] ACUTE ILLNESS 08/08/2016 Patient Education: Patient Medication Summary Completed 08/08/2016 Appointment: Josefa Talamantes WPtel: [address] [place], [place] [id number] [place] INJECTION 07/25/2016 Patient Education: Patient Medication Summary Completed 07/25/2016 Visit Plan: Finish abx and then recultur e 48hrs after completion Add levsin and zorvolex 05/15/2016 Appointment: Josefa Talamantes WPtel: [address] [place], [place] [id number] [place] 1/ lm `sl 05/15 confirmed~ Hospital Follow Up 0 05/15/2016 Patient Education: Patient Medication Summary Completed 05/15/2016 Appointment: Catrina Bran [address] [place], [place] [id number] [place] 05/09 admitted into the hospital last night~ ACUTE ILLNESS 05/09/2016 Appointment: Josefa Talamantes WPtel: [address] [place], [place] [phone] [place] INJECTION 05/03/2016 Patient Education: Patient Medication Summary Completed 05/03/2016 Appointment: Josefa Talamantes WPtel: [address] [place], [place] [phone] [place] INJECTION 02/20/2016 Patient Education: Patient Medication [...] C&S obtained 12/23/2015 Appointment: Kitty Caldera WPtel: [address] [place], [place] [phone] [place] ACUTE ILLNESS 12/23/2015 Patient Education: Patient Medication Summary Completed 12/23/2015 Appointment: Josefa Talamantes WPtel: [address] [place], [place] [phone] [place] INJECTION 11/07/2015 Patient Education: Patient Medication Summary Completed 11/07/2015 Appointment: Josefa Talamantes WPtel: [address] [place], [place] [phone] [place] INJECTION 08/01/2015 Patient Education: Patient Medication Summary Completed 08/01/2015 Appointment: Josefa Talamantes WPtel: [address] [place], [place] [phone] [place] INJECTION 05/11/2015 Patient Education: Patient Medication Summary Completed 05/11/2015 Appointment: Malgorzata Islas WPtel: [address] [place], [place] [phone] [place] PAP 04/05/2015 Appointment: Josefa Talamantes WPtel: [address] [place], [place] [phone] [place] INJECTION 02/16/2015 Patient Education: Patient Medication Summary Completed 02/16/2015 Visit Plan: Daily nasal saline rinses Fl onase nasal spray and daily Zyrtec Medrol dose pack Z-jhonathan as directed 01/26/2015 Appointment: Malgorzata Islas WPtel: [address] [place], [place] [phone] ACUTE ILLNESS 01/26/2015 Patient Education: Patient Medication Summary Completed 01/26/2015 Appointment: Josefa Talamantes WPtel: [address] [place], [place] [phone] INJECTION 11/29/2014 Patient Education: Patient Medication Summary Completed 11/29/2014 Appointment: Josefa Talamantes WPtel: [address] [place], [place] [phone] INJECTION 09/09/2014 Patient Education: Patient Medication Summary Completed 09/09/2014 Appointment: Malgorzata Islas WPtel: [address] [place], [place] [phone] FOLLOW UP 06/16/2014 Patient Education: Patient Medication Summary Completed 06/16/2014 Appointment: Malgorzata Islas WPtel: [address] [place], [place] [phone] 06/02/14 appointment scheduled 06/03/14 no showed PAP 06/03/2014 Appointment: Malgorzata Islas WPtel: [address] [place], [place] [phone] FOLLOW UP 01/28/2014 Patient Education: Patient Medication Summary Completed 01/28/2014 Care Plan: [place] : [address]8 Ordered 01/28/2014 Care Plan: AMYLASE Pending 4 Appointment: Malgorzata Islas WPtel: [address] [place], [place] [phone] [place] FOLLOW UP 12/10/2013 Patient Education: Patient Medication Summary Completed 12/10/2013 Appointment: Malgorzata Islas WPtel: [address] [place], [place] [phone] 11/11 vm 11/12 No Show FOLLOW UP 11/12/2013 Appointment: Malgorzata Islas WPtel: [address] [place], [place] [phone] [place] FOLLOW UP 10/20/2013 Patient Education: Patient Medication Summary Completed 10/20/2013 Visit Plan: Quantitative Hcg and CBC tod ay. Transvaginal/Transabdominal sonogram stat Discussed with FOOD BROKER and [facility] 343 so will recheck in 1week as long as not worsening 10/07/2013 Appointment: Malgorzata Islas WPtel: [address] [place], [place] [id number] ACUTE ILLNESS 10/07/2013 Patient Education: Patient Medication Summary Completed 10/07/2013 Appointment: Malgorzata Islas WPtel: [address] [place] [address] ACUTE ILLNESS 09/15/2013 Patient Education: Patient Medication Summary Completed 09/15/2013 Appointment: Malgorzata Islas WPtel: [address] [place] [address] ACUTE ILLNESS 06/24/2013 Patient Education: Patient Medication Summary Completed 06/24/2013 Appointment: Malgorzata Islas WPtel: [address] [place] [address] [place] appt was scheduled today then patient no showed the visit ACUTE ILLNESS 05/21/2013 Visit Plan: Check CMP, CBC, UA CT scan o f abdomen Omeprazole 03/05/2013 Appointment: Josefa Talamantes WPtel: [address] [place], [place] [phone] ACUTE ILLNESS 03/05/2013 Appointment: Josefa Talamantes WPtel: [address] [place], [place] [phone] 03/02 canceled, wrong patient FOLLOW UP Patient Education: Patient Medication Summary Completed 03/05/2013 Appointment: Malgorzata Islas WPtel: [address] [place], [place] [phone] ACUTE ILLNESS 02/09/2013 Patient Education: Patient Medication Summary Completed 02/09/2013 Appointment: Justine Ortega WPtel: [address] [place] [address] ACUTE ILLNESS 09/08/2010 Patient Education: Patient Medication Summary Completed 09/08/2010 Appointment: Justine Ortega WPtel: [address] [place] [address] [place] PAP 08/08/2010 Appointment: Justine Ortega WPtel: [address] [place] [address] ACUTE ILLNESS 07/24/2010 Patient Education: Patient Medication Summary Completed 07/24/2010 Visit Plan: All warts shaved with 11-rekha de scalpel and then cryotherapy x3 Will followup with DNCB treatment 03/08/2010 Appointment: Josefa Talamantes WPtel: [address] [place] [address] ACUTE ILLNESS 03/08/2010 Patient Education: Patient Medication Summary Completed 03/08/2010 Appointment: Josefa Talamantes WPtel: [address] [place] [address] [place] PAP 09/14/2009 Referral: Roney Galloway WPtel: [address] Referral Initiated Referral: Brian Floyd WPtel: [address] Referral Initiated Referral: Referral Initiated Instructions [...] CBC today. Transvaginal/Transabdominal sonogram stat Discussed with FOOD BROKER and [facility] 343 so will recheck in [...]
--- OUTSIDE RECORDS SUMMARY | 2019-12-11 22:06 | XMS REPORT | CCD ---
Author Author Brenda Talamantes D.O. Organization JOSEFA TALAMANTES DO [facility] Address [address] [place] [address] Phone Care Team Providers Care Branch General Manager Name Role Phone Josefa Talamantes D.O., PP Unavailable CCM Unavailable Summary Purpose Interface Exchange Insurance Providers Payer name Policy type / Coverage type Covered libertarian ID Effective Begin Date Effective End Date [facility] [facility] TSB Insurance [id number] Unknown Family History Family History data not found Social History Social History Element Codes Description Effective Dates Tobacco history SNOMED CT: 247393929 Unknown if ever smoked 01/12 Allergies, Adverse [...] *Denies any medical problems Unknown 03/08/2010 Act liliapedro SAMPSON WART ICD-9: 078.12 03/08/2010 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 03/08/2010 Active Medications Medication Codes Instructions Start Date Stop Date Status Fill Instructions ibuprofen 800 mg tablet RxNorm: 854978 1 Tablet(s) Oral Q8H as needed 03/16/2019 06/05/2019 Inactive Cipro 500 mg tablet RxNorm: 981462 1 Tablet(s) Oral two times a day 03/04/2019 03/11/2019 Inactive Cipro 500 mg tablet RxNorm: 326169 1 Tablet(s) Oral two times a day 03/04/2019 03/03/2019 Inactive Macrobid 100 mg capsule RxNorm: 658609 1 Capsule(s) Oral two ti mes a day 02/16/2019 02/15/2019 Inactive Macrobid 100 mg capsule RxNorm: 019284 1 Capsule(s) Oral two ti mes a [...] 11/24/2017 Inactive Pepcid 40 mg tablet RxNorm: 012179 1 Tablet(s) PO QD 10/18/201603/02 Inactive Depo-Provera 150 mg/mL intramuscular suspension RxNorm: 1000 128 Milliliter(s) 1 Milliliter(s) IM 10/10/2016 06/04/2017 Inactive Tamiflu 75 mg capsule RxNorm: 529362 1 Capsule(s) PO BID 08/08/2016 0 08/12/2016 Inactive Levsin 0.125 mg tablet RxNorm: 5109517 1 Tablet(s) PO TID for fl ank pain 05/15/2016 10/17/2016 Inactive Bactrim DS 800 mg-160 mg tablet RxNorm: 904499 1 Tablet(s) PO BID 0 12/23/2015 01/01/2016 Inactive mupirocin 2 % topical ointment RxNorm: 479950 Application TOP TID 0 12/23/2015 12/29/2015 Inactive Depo-Provera 150 mg/mL intramuscular suspension RxNorm: 1000 128 Milliliter(s) 1 Milliliter(s) IM 11/08/2015 10/09/2016 Inactive Xanax 0.25 mg tablet RxNorm: 867642 TAKE ONE-HALF TO ON E TABLET BY MOUTH NEEDED FOR ANXIETY 04/11/2015 05/10/2015 Inactive Generic For:X ANAX 0.25 MG TABLET 04/11/2015 2:54:57 PM Depo-Provera 150 mg/mL intramuscular suspension RxNorm: 1000 128 Milliliter(s) 1 Milliliter(s) IM 02/15/2015 11/07/2015 Inactive azithromycin 250 mg tablet RxNorm: 255342 2 Tablet(s) P O today, then one tablet on days 2 - 5 01/26/2015 12/22/2015 Inactive Medrol (Jhonathan) 4 mg tablets in a dose pack RxNorm: 358955 Tablet(s) P O 01/26/2015 12/22/2015 Inactive Depo-Provera 150 mg/mL intramuscular suspension RxNorm: 1000 128 1 Milliliter(s) IM 09/06/2014 02/15/2015 Inactive Xanax 0.25 mg tablet RxNorm: 354674 1/2 - 1 Tablet(s) PO as nee ded for anxiety 06/16/2014 04/12/2015 Inactive Zoloft 50 mg tablet RxNorm: 675323 1 Tablet(s) PO QD 06/16/201412/21 Inactive Flexeril [...] 2014 Inactive Xanax 0.25 mg tablet RxNorm: 582128 1/2 - 1 Tablet(s) PO as nee ded for anxiety 01/28/2014 06/15/2014 Inactive naproxen 500 mg tablet RxNorm: 542533 1 Tablet(s) PO BID 12/10/2013 0 01/08/2014 Inactive Zoloft 50 mg tablet RxNorm: 453363 1 Tablet(s) PO QD 12/10/201304/08 Inactive Xanax 0.25 mg tablet RxNorm: 389907 1/2 - 1 Tablet(s) PO as nee ded for anxiety 12/10/2013 01/27/2014 Inactive Xanax 0.25 mg tablet RxNorm: 400152 1 Tablet(s) PO Q8H 10/20/2013 Inactive Zoloft 50 mg tablet RxNorm: 593917 1/2 Tablet(s) PO x 6 days then on1 tablet daily 10/20/2013 11/18/2013 Inactive Loestrin Fe 20 (28) 1 mg-20 mcg tablet RxNorm: 3312729 1 Table t(s) PO QD 10/20/2013 05/03/2014 Inactive phenazopyridine 100 mg tablet RxNorm: 6079440 1 Tablet(s) PO Q8H 06/26/2013 Inactive Macrobid 100 mg capsule RxNorm: 022298 1 Capsule(s) PO BID 06/25/19 14 07/04/2013 Inactive phenazopyridine 100 mg tablet RxNorm: 4176987 1 Tablet(s) PO Q8H 06/24/2013 Inactive Macrobid 100 mg capsule RxNorm: 275823 1 Capsule(s) PO BID 07/25/19 11 08/02/2010 Inactive Apri 0.15 mg-30 mcg tablet RxNorm: 052809 1 Tablet(s) PO QD As directed. No Start Date 06/23/2013 Inactive omeprazole 40 mg capsule,delayed release RxNorm: 339167 1 Capsule(s) PO QD for stomach No Start Date 06/23/2013 Inactive naproxen 500 mg tablet RxNorm: 731034 1 Tablet(s) PO BID No Start D ate 06/15/2014 Inactive hydrocodone 10 mg-acetaminophen 325 mg tablet RxNorm: 678153 Tablet(s) PO as needed for pain No Start Date 12/22/2015 Inactive Zoloft 50 mg tablet RxNorm: 611099 1 Tablet(s) PO QD No Start Date Inactive hydrocodone 5 mg-acetaminophen 325 mg tablet RxNorm: 728656 1 Tablet(s) PO QID as needed for pain No Start Date 09/14/2013 Inactive Medication Administered No Medication Administered data Immunizations No Immunization data Results Observation Observation Code Item Item Code Result Date S ervice Location LIPASE 99725 LIPASE 14 IU/L 01/28/2014 Unknown COMPLETE BLOOD COUNT [id number] WBC 6.5 10e9/L 01/29/20 14 Unknown COMPLETE BLOOD COUNT [id number] RBC 4.54 10e12/L 2013 Unknown COMPLETE BLOOD COUNT [id number] HGB 12.1 g/dL 4 Unknown COMPLETE BLOOD COUNT [id number] HCT DET 38.0 % 4 Unknown COMPLETE BLOOD COUNT [id number] MCV 83.7 fL 4 Unknown COMPLETE BLOOD COUNT [id number] MCH 26.7 pg 4 Unknown COMPLETE BLOOD COUNT [id number] MCHC 31.8 g/dL 4 Unknown COMPLETE BLOOD COUNT [id number] PLT 218 10e9/L 01/29/20 14 Unknown COMPLETE BLOOD COUNT [id number] MPV 12.8 fL 4 Unknown COMPLETE BLOOD COUNT [id number] RACHNA % 56.5 % 4 Unknown COMPLETE BLOOD COUNT [id number] LY % 32.3 % 4 Unknown COMPLETE BLOOD COUNT [id number] MON % 8.6 % 4 Unknown COMPLETE BLOOD COUNT [id number] EOS % 2.1 % 4 Unknown COMPLETE BLOOD COUNT [id number] BASO % 0.5 % 4 Unknown COMPLETE BLOOD COUNT [id number] RDW 18.4 % 4 Unknown COMPLETE BLOOD COUNT [id number] ABS RACHNA 3.67 10e9/L 014 Unknown COMPLETE BLOOD COUNT [id number] ABS LYMPH 2.10 10e9/L 014 Unknown COMPLETE BLOOD COUNT [id number] ABS MONO 0.56 10e9/L 014 Unknown COMPLETE BLOOD COUNT [id number] ABS EOS 0.14 10e9/L 014 Unknown COMPLETE BLOOD COUNT [id number] ABS BASO 0.03 10e9/L 014 Unknown COMPLETE BLOOD COUNT [id number] RDW-SD 55.5 fL 4 Unknown COMPREHENSIVE METABOLIC 47690 AST 13 U/L 2013 Unknown COMPREHENSIVE METABOLIC 27809 ALT 7 IU/L 2013 Unknown COMPREHENSIVE METABOLIC 47434 BUN 8 MG/DL 2013 Unknown COMPREHENSIVE METABOLIC 40203 ALBUMIN 4.5 GM/DL 2013 Unknown COMPREHENSIVE METABOLIC 55217 CHLORIDE 106 MMOL/L 01/28 Unknown COMPREHENSIVE METABOLIC 63046 BILI TOT 0.4 MG/DL 2013 Unknown COMPREHENSIVE METABOLIC 86946 ALK PHOS 55 U/L 2013 Unknown COMPREHENSIVE METABOLIC 64028 SODIUM 138 MMOL/L 01/28 Unknown COMPREHENSIVE METABOLIC 20540 CREATININE 0.73 MG/DL 01/11 Unknown COMPREHENSIVE METABOLIC 09579 CALCIUM 9.9 MG/DL 2013 Unknown COMPREHENSIVE METABOLIC 39452 POTASSIUM 3.8 MMOL/L 01/28 Unknown COMPREHENSIVE METABOLIC 55458 PROT TOT 7.4 GM/DL 2013 Unknown COMPREHENSIVE METABOLIC 20964 Glucose 96 MG/DL 2013 Unknown COMPREHENSIVE METABOLIC 63121 BICARB 27 MMOL/L 2013 Unknown COMPREHENSIVE METABOLIC 49728 ANION GAP 5 MEQ/L 2013 Unknown AMYLASE 70143 AMYLASE 42 IU/L 01/28/2014 Unknown GFR CALC [id number] GFR AA >60 ML/MIN 01/28/2014 Unknown GFR CALC [id number] GFR NON-AA >60 ML/MIN 01/28/2014 Unknown Procedures Procedure Codes Date URINALYSIS NONAUTO W/O SCOPE CPT-4: 94390 06/05/2019 CEFTRIAXONE SODIUM INJECTION CPT-4: J0696 06/05/2019 THER/PROPH/DIAG INJ SC/IM CPT-4: 83665 06/05/2019 URINE CULTURE/ COLONY COUNT CPT-4: 74198 06/05/2019 URINE CULTURE/ COLONY COUNT CPT-4: 98994 03/02/2019 THER/PROPH/DIAG INJ SC/IM CPT-4: 33776 02/16/2019 URINE CULTURE/ COLONY COUNT CPT-4: 74373 02/16/2019 URINALYSIS NONAUTO W/O SCOPE CPT-4: 10432 02/16/2019 URINE TEST CPT-4: 96569 02/16/2019 THER/PROPH/DIAG INJ SC/IM CPT-4: 01423 05/21/2018 THER/PROPH/DIAG INJ SC/IM CPT-4: 47211 11/26/2017 THER/PROPH/DIAG INJ SC/IM CPT-4: 75470 08/27/2017 THER/PROPH/DIAG INJ SC/IM CPT-4: 14534 06/06/2017 URINALYSIS NONAUTO W/O SCOPE CPT-4: 03977 06/06/2017 GC/CHLAMYDIA DNA (-[facility]) CPT-4: 51930|62230 8 URINE CULTURE/ COLONY COUNT CPT-4: 78562 06/06/2017 THER/PROPH/DIAG INJ SC/IM CPT-4: 33435 01/04/2017 SPECIMEN HANDLING OFFICE-LAB CPT-4: 50127 10/18/2016 THER/PROPH/DIAG INJ SC/IM CPT-4: 54090 10/12/2016 INFLUENZA ASSAY W/OPTIC CPT-4: 15985 08/08/2016 THER/PROPH/DIAG INJ SC/IM CPT-4: 65813 07/25/2016 THER/PROPH/DIAG INJ SC/IM CPT-4: 14660 05/03/2016 THER/PROPH/DIAG INJ SC/IM CPT-4: 81394 02/20/2016 URINE TEST CPT-4: 03174 02/20/2016 AEROBIC WOUND CULTURE & STN CPT-4: 52165 12/23/2015 THER/PROPH/DIAG INJ SC/IM CPT-4: 30102 11/07/2015 URINE TEST CPT-4: 83684 11/07/2015 THER/PROPH/DIAG INJ SC/IM CPT-4: 84418 08/01/2015 THER/PROPH/DIAG INJ SC/IM CPT-4: 71786 05/11/2015 THER/PROPH/DIAG INJ SC/IM CPT-4: 34291 02/16/2015 THER/PROPH/DIAG INJ SC/IM CPT-4: 04471 11/29/2014 THER/PROPH/DIAG INJ SC/IM CPT-4: 44785 09/09/2014 URINE TEST CPT-4: 77859 06/16/2014 THER/PROPH/DIAG INJ SC/IM CPT-4: 77319 06/16/2014 ROUTINE VENIPUNCTURE CPT-4: 90355 10/07/2013 COMPLETE CBC W/AUTO DIFF WBC CPT-4: 39804 10/07/2013 CHORIONIC GONADOTROPIN TEST CPT-4: 38393 10/07/2013 URINE TEST CPT-4: 44773 09/15/2013 URINALYSIS NONAUTO W/O SCOPE CPT-4: 28986 06/24/2013 URINE CULTURE/ COLONY COUNT CPT-4: 20141 06/24/2013 URINE TEST CPT-4: 56066 09/08/2010 URINALYSIS NONAUTO W/O SCOPE CPT-4: 12978 07/24/2010 URINE CULTURE/ COLONY COUNT CPT-4: 40233 07/24/2010 DESTRUCT PREMALG LESION (Cryosurgery) CPT-4: 58204 DESTRUCT PREMALG LES 2-14 CPT-4: 72312 03/08/2010 Vital Signs Date Vital 06/05/2019 Blood Pressure 1: 131/82 Code: 8480-6 BMI: 26.3 Code: 52813-1 Heart Rate 1: 109 bpm Height: 5'9" Respiratory Rate: 16 bpm SpO2: 99% Tempera ture: 36.7 (C) / 98.1 (F) Weight: 178 lbs 03/16/2019 Blood Pressure 1: 132/86 Code: 8480-6 Heart Rate 1: 73 bpm SpO2: 99% Temperature: 36.6 (C) / 97.9 (F) Weight: 158 lbs 03/03/2018 Blood Pressure 1: 120/88 Code: 8480-6 BMI: 23.9 Code: 77687-3 Heart Rate 1: 81 bpm Height: 5'9" Respiratory Rate: 18 bpm SpO2: 99% Tempera ture: 36.1 (C) / 97.0 (F) Weight: 162 lbs 10/18/2016 Blood Pressure 1: 108/ Code: 8480-6 BMI: 22.6 Code: 97942-6 Heart Rate 1: 100 bpm Height: 5'9" Respiratory Rate: 20 bpm SpO2: 98% Tempera ture: 37.1 (C) / 98.8 (F) Weight: 153 lbs 08/08/2016 Blood Pressure 1: 114/78 Code: 8480-6 Heart Rate 1: 102 bpm Respiratory Rate: 20 bpm SpO2: 98% Temperature: 36.4 (C) / 97.6 (F) We ight: 152 lbs 05/15/2016 Blood Pressure 1: 124/ Code: 8480-6 BMI: 23.2 Code: 32921-9 Heart Rate 1: 100 bpm Height: 5'9" Respiratory Rate: 20 bpm Temperature: 37 .0 (C) / 98.6 (F) Weight: 157 lbs 12/23/2015 Blood Pressure 1: 124 Code: 8480-6 BMI: 23.0 Code: 00059-8 Heart Rate 1: 92 bpm Height: 5'9" Respiratory Rate: 20 bpm SpO2: 97% Tempera ture: 36.9 (C) / 98.5 (F) Weight: 156 lbs 01/26/2015 Blood Pressure 1: 118/78 Code: 8480-6 BMI: 21.3 Code: 47103-8 Heart Rate 1: 100 bpm Height: 5'9" Respiratory Rate: 20 bpm SpO2: 97% Tempera ture: 36.6 (C) / 97.8 (F) Weight: 144 lbs 06/16/2014 Blood Pressure 1: 11878 Code: 8480-6 BMI: 23.5 Code: 32748-7 Heart Rate 1: 78 bpm Height: 5'9" Respiratory Rate: 18 bpm Temperature: 36 .1 (C) / 97.0 (F) Weight: 159 lbs 01/28/2014 Blood Pressure 1: 124/78 Code: 8480-6 BMI: 23.2 Code: 87846-0 Heart Rate 1: 88 bpm Height: 5'9" Respiratory Rate: 22 bpm Temperature: 36 .1 (C) / 97.0 (F) Weight: 157 lbs 12/10/2013 Blood Pressure 1: 124/ Code: 8480-6 BMI: 23.0 Code: 31543-4 Heart Rate 1: 82 bpm Height: 5'9" Respiratory Rate: 20 bpm Temperature: 36 .2 (C) / 97.2 (F) Weight: 156 lbs 10/20/2013 Blood Pressure 1: 118/82 Code: 8480-6 Heart Rate 1: 84 bpm Respiratory Rate: 22 bpm Temperature: 36.5 (C) / 97.7 (F) Weight: 150 lbs 10/07/2013 Blood Pressure 1: 120/80 Code: 8480-6 BMI: 22.2 Code: 52470-6 Heart Rate 1: 68 bpm Height: 5'9" Respiratory Rate: 22 bpm Temperature: 36 .2 (C) / 97.2 (F) Weight: 150 lbs 09/15/2013 Blood Pressure 1: 118/68 Code: 8480-6 BMI: 22.0 Code: 69296-8 Heart Rate 1: 78 bpm Height: 5'9" Respiratory Rate: 20 bpm Temperature: 36 .1 (C) / 97.0 (F) Weight: 149 lbs 06/24/2013 Blood Pressure 1: 112/74 Code: 8480-6 Heart Rate 1: 74 bpm Respiratory Rate: 20 bpm Temperature: 36.6 (C) / 97.9 (F) Weight: 150 lbs 03/05/2013 Blood Pressure 1: 126/88 Code: 8480-6 BMI: 23.5 Code: 84510-8 Heart Rate 1: 80 bpm Height: 5'9" Respiratory Rate: 20 bpm Temperature: 36 .6 (C) / 97.9 (F) Weight: 159 lbs 02/09/2013 Blood Pressure 1: 110/68 Code: 8480-6 BMI: 21.9 Code: 85671-5 Heart Rate 1: 74 bpm Height: 5'9" Respiratory Rate: 22 bpm Temperature: 36 .8 (C) / 98.2 (F) Weight: 148 lbs 09/08/2010 Blood Pressure 1: 124/90 Code: 8480-6 BMI: 21.4 Code: 08099-4 Height: 5'10" Temperature: 36.4 (C) / 97.6 [...] Codes Date () OFFICE/OUTPATIENT VISIT EST Diagnosis: Dysuria[ICD10: R30.0] Diagnosis: Pelvic pain in female[ICD10: R10.2] Keyanna SNELLNELIDAAngelique KATTY Connors [employer] CPT-4: 03800 06/05/2019 ([id number]) OFFICE/OUTPATIENT VISIT EST Diagnosis: Left wrist pain[ICD10: M25.532] Diagnosis: Swelling of left upper extremity[ICD10: M79.89] Keyanna PINTOLINE SergioMaria Teresa [employer] CPT-4: 20278 03/16/2019 ([id number]) NURSE/OUTPATIENT VISIT EST Diagnosis: Urinary tract infection[ICD10: N39.0] Josefa Thadmamadou DE SOUZA SergioMaria Teresa THADABNERNENA [employer] CPT-4: 77381 03/02/2019 ([id number]) NURSE/OUTPATIENT VISIT EST Diagnosis: Irregular menstruation, unspecified[ICD10: N92.6] Diagnosis: Urinary tract infection[ICD10: N39.0] Josefa Thadmamadou Connors THADABNERNENA [employer] CPT-4: 43246 02/16/2019 ([id number]) NURSE/OUTPATIENT VISIT EST Diagnosis: Irregular menstruation, unspecified[ICD10: N92.6] Josefa Thadabnernena JOSEFA SergioMaria Teresa THADABNERNENA [employer] CPT-4: 15152 05/21/2018 ([id number]) OFFICE/OUTPATIENT VISIT EST Diagnosis: Irregular menstruation, unspecified[ICD10: N92.6] Diagnosis: Diseases of lips[ICD10: K13.0] Diagnosis: 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] Keyanna PITNOLINE SergioMaria Teresa [employer] CPT-4: 23087 03/03/2018 ([id number]) NURSE/OUTPATIENT VISIT EST Diagnosis: Irregular menstruation, unspecified[ICD10: N92.6] Josefa TALAMANTES DO [facility] CPT-4: 46509 11/26/2017 ([id number]) OFFICE/OUTPATIENT VISIT EST Diagnosis: Irregular menstruation, unspecified[ICD10: N92.6] Josefa TALAMANTES DO [facility] CPT-4: 47589 08/27/2017 ([id number]) OFFICE/OUTPATIENT VISIT EST Diagnosis: Dysuria[ICD10: R30.0] Diagnosis: Irregular menstruation, unspecified[ICD10: N92.6] Josefa TALAMANTES DO [facility] CPT-4: 21395 06/06/2017 ([id number]) OFFICE/OUTPATIENT VISIT EST Diagnosis: Irregular menstruation, unspecified[ICD10: N92.6] Josefa TALAMANTES DO [facility] CPT-4: 58965 01/04/2017 ([id number]) PREV VISIT EST AGE 18-39 Diagnosis: Encounter for general adult medical examination without abnormal findings[ICD10: Z00.00] Diagnosis: Encounter for gynecological examination (general) (routine) without abnormal findings[ICD10: Z01.419] Diagnosis: Gastro-esophageal reflux disease without esophagitis[ICD10: K21.9] Diagnosis: Dysphagia, pharyngeal phase[ICD10: R13.13] Josefa TALAMANTES DO [facility] CPT-4: 10656 10/18/2016 ([id number]) OFFICE/OUTPATIENT VISIT EST Diagnosis: Irregular menstruation, unspecified[ICD10: N92.6] Josefa TALAMANTES DO [facility] CPT-4: 14820 10/12/2016 ([id number]) OFFICE/OUTPATIENT VISIT EST Diagnosis: Fever, unspecified[ICD10: R50.9] Diagnosis: Influenza due to identified novel influenza A virus with other respiratory manifestations[ICD10: J09.X2] Catrina Bran JOSEFA TALAMANTES DO [facility] CPT-4: 36587 08/08/2016 ([id number]) OFFICE/OUTPATIENT VISIT EST Diagnosis: Irregular menstruation, unspecified[ICD10: N92.6] Josefa TALAMANTES DO [facility] CPT-4: 45221 07/25/2016 ([id number]) OFFICE/OUTPATIENT VISIT EST Diagnosis: Right upper quadrant pain[ICD10: R10.11] Diagnosis: Unspecified abdominal pain[ICD10: R10.9] Josefa TALAMANTES DO [facility] CPT-4: 99697 05/15/2016 ([id number]) OFFICE/OUTPATIENT VISIT EST Diagnosis: Irregular menstruation, unspecified[ICD10: N92.6] Josefa TALAMANTES DO [facility] CPT-4: 96226 05/03/2016 ([id number]) OFFICE/OUTPATIENT VISIT EST Diagnosis: Irregular menstruation, unspecified[ICD10: N92.6] Josefa TALAMANTES DO [facility] CPT-4: 40722 02/20/2016 OFFICE/OUTPATIENT VISIT EST Diagnosis: Cutaneous abscess of buttock[ICD10: L02.31] Kitty Caldera JOSEFA TALAMANTES DO [facility] CPT-4: 64733 12/23/2015 ([id number]) OFFICE/OUTPATIENT VISIT EST Diagnosis: Irregular menstruation, unspecified[ICD10: N92.6] Josefa TALAMANTES DO [facility] CPT-4: 15971 11/07/2015 ([id number]) OFFICE/OUTPATIENT VISIT EST Diagnosis: Irregular menstruation, unspecified[ICD10: N92.6] Josefa TALAMANTES DO [facility] CPT-4: 48911 08/01/2015 ([id number]) OFFICE/OUTPATIENT VISIT EST Diagnosis: Irregular menstruation, unspecified[ICD10: N92.6] Josefa TALAMANTES DO [facility] CPT-4: 51490 05/11/2015 ([id number]) OFFICE/OUTPATIENT VISIT EST Diagnosis: Irregular menstruation, unspecified[ICD10: N92.6] Josefa TALAMANTES DO [facility] CPT-4: 20326 02/16/2015 OFFICE/OUTPATIENT VISIT EST Diagnosis: SINUSITIS, ACUTE[ICD9: 461.9] Malgorzata VanBecelaere JOSEFA S. ORENDER DO [facility] CPT-4: 37015 01/26/2015 ([id number]) OFFICE/OUTPATIENT VISIT EST Diagnosis: IRREGULAR MENSTRUATION[ICD9: 626.4] Josefa TALAMANTES DO [facility] CPT-4: 88376 11/29/2014 ([id number]) OFFICE/OUTPATIENT VISIT EST Diagnosis: IRREGULAR MENSTRUATION[ICD9: 626.4] Josefa TALAMANTES [facility] CPT-4: 39868 09/09/2014 ([id number]) OFFICE/OUTPATIENT VISIT EST Diagnosis: IRREGULAR MENSTRUATION[ICD9: 626.4] Diagnosis: General counseling and advice on contraceptive management[ICD9: V25.09] Diagnosis: Anxiety and depression[ICD9: 300.4] Malgorzata TALAMANTES [facility] CPT-4: 50071 06/16/2014 OFFICE/OUTPATIENT VISIT EST Diagnosis: Right upper quadrant pain[ICD9: 789.01] Malgorzata [facility] CPT-4: 76831 01/28/2014 OFFICE/OUTPATIENT VISIT EST Diagnosis: Right upper quadrant pain[ICD9: 789.01] Malgorzata TALAMANTES [facility] CPT-4: 16403 12/10/2013 OFFICE/OUTPATIENT VISIT EST Diagnosis: Anxiety and depression[ICD9: 300.4] Malgorzata VillanuevaErinjuanjo ALANIZ SMaria Teresa TALAMANTES [facility] CPT-4: 28104 10/20/2013 OFFICE/OUTPATIENT VISIT EST Diagnosis: Menorrhagia[ICD9: 626.2] Malgorzata VillanuevaErinjuanjo [facility] CPT-4: 10534 10/07/2013 OFFICE/OUTPATIENT VISIT EST Diagnosis: IRREGULAR MENSTRUATION[ICD9: 626.4] Malgorzata VillanuevaErinjuanjo TALAMANTES [facility] CPT-4: 93188 09/15/2013 OFFICE/OUTPATIENT VISIT EST Diagnosis: HEMATURIA NOS[ICD9: 599.70] Diagnosis: Abdominal discomfort in right upper quadrant[ICD9: 789.01] Malgorzata Hill. [employer] CPT-4: 41961 06/24/2013 ([id number]) OFFICE/OUTPATIENT VISIT EST Diagnosis: ABDOMINAL PAIN[ICD9: 789.00] Diagnosis: GERD[ICD9: 530.81] Joseaf Winchesternena TALAMANTES [employer] CPT-4: 96426 03/05/2013 OFFICE/OUTPATIENT VISIT EST Diagnosis: General counseling and advice on contraceptive management[ICD9: V25.09] Diagnosis: IRREGULAR MENSTRUATION[ICD9: 626.4] Malgorzata TALAMANTES DO [facility] CPT-4: 50143 02/09/2013 ([id number]) OFFICE/OUTPATIENT VISIT GISEL TALAMANTES DO [facility] CPT-4: 04410 09/08/2010 ([id number]) OFFICE/OUTPATIENT VISIT GISEL TALAMANTES DO [facility] CPT-4: 89733 07/24/2010 Plan of Care Planned Activity Notes [...] : R30.0 06/05/2019 Appointment: Keyanna Mejía [address] [facility] FOLLOW UP 06/05/2019 Visit Diagnosis Plan: Left [...] : M25.532 03/16/2019 [facility] [facility] 03/16/2019 Appointment: Josefa Talamantes WPtel: [phone] [facility] US UA 03/02/2019 Appointment: Josefa Talamantes WPtel: [address] [place], [place] [phone] [place] INJECTION 02/16/2019 Appointment: Josefa Talamantes WPtel: [address] [place], [place] [phone] [place] INJECTION 05/21/2018 Visit Diagnosis Plan: Diseases [...] performed in office and negative. 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 had pap october of 2016. not due until 2019 or patient turns 29. ICD-9 : 626.4 ICD-10 : N92.6 03/03/2018 Appointment: Keyanna Mejía [address] [place], [place] [phone] [place] ACUTE ILLNESS 03/03/2018 Patient Education: Patient Medication Summary Completed 03/03/2018 Care Plan: US EXAM OF HEAD AND NECK thyroid LOIN C : 60261-8 Pending 03/03/2018 Appointment: Josefa Talamantes WPtel: [address] [place], [place] [phone] [place] CANCELED 02/27/2018 Appointment: Josefa Talamantes WPtel: [address] [place], [place] [id number] [place] INJECTION 11/26/2017 Patient Education: Patient Medication Summary Completed 11/26/2017 [facility] [facility] 08/27/2017 Patient Education: Patient Medication Summary Completed 08/27/2017 Appointment: Josefa Talamantes WPtel: [address] [place], [place] [id number] [place] INJECTION 06/06/2017 Patient Education: Patient Medication Summary Completed 06/06/2017 Appointment: Josefa Talamantes WPtel: [address] [place], [place] [id number] [place] INJECTION 01/04/2017 Patient Education: Patient Medication Summary Completed 01/04/2017 Appointment: Josefa Talamantes WPtel: [address] [place], [place] [phone] [place] 7/10 lm `sl 11/21 lm `sl NO SHOW 11/22/19 Patient Education: Patient Medication Summary Completed 10/22/2016 Care Plan: US EXAM OF HEAD AND NECK Thyroid Ultrasound LOIN C : 38542-7 Pending 10/22/2016 Visit Diagnosis Plan: Dysphagia, pharyngeal phase Disc [...] ICD-9 : V72.31 ICD-10 : Z01.419 10/18/2016 Appointment: Josefa Talamantestel: [address] [place], [place] [id number] [place] 6/7 lm `sl Annual Well Visit 10/18/2016 Patient Education: Patient Medication Summary Completed 10/18/2016 Appointment: Josefa Talamantes WPtel: [address] [place], [place] [phone] [place] INJECTION 10/12/2016 Patient Education: Patient Medication Summary Completed 10/12/2016 Visit Diagnosis Plan: Influenza due to i dentified novel influenza A virus with other respiratory manifestations Discussion: Flu A positive Rx as above Supportive care otherwise Contagious precautions discussed Notify kids' provider of exposure for their instructions ICD-9 : 488.02 ICD-10 : J09.X2 08/08/2016 Appointment: Catrina Bran [address] [place], [place] [id number] ACUTE ILLNESS 08/08/2016 Patient Education: Patient Medication Summary Completed 08/08/2016 Appointment: Josefa Talamantes WPtel: [address] [place], [place] [phone] [place] INJECTION 07/25/2016 Patient Education: Patient Medication Summary Completed 07/25/2016 Visit Plan: Finish abx and then recultur e 48hrs after completion Add levsin and zorvolex 05/15/2016 Appointment: Josefa Talamantes WPtel: [address] [place], [place] [phone] 1/2 lm `sl 05/15 confirmed~ Hospital Follow Up 0 05/15/2016 Patient Education: Patient Medication Summary Completed 05/15/2016 Appointment: Catrina Bran [address] [place], [place] [id number] 05/09 admitted into the hospital last night~ ACUTE ILLNESS 05/09/2016 Appointment: Josefa Talamantes WPtel: [address] [place], [place] [phone] [place] INJECTION 05/03/2016 Patient Education: Patient Medication Summary Completed 05/03/2016 Appointment: Josefa Talamantes WPtel: [address] [place], [place] [phone] [place] INJECTION 02/20/2016 Patient Education: Patient Medication [...] C&S obtained 12/23/2015 Appointment: Kitty Caldera WPtel: [address] [place], [place] [phone] [place] ACUTE ILLNESS 12/23/2015 Patient Education: Patient Medication Summary Completed 12/23/2015 Appointment: Josefa Talamantes WPtel: [address] [place], [place] [phone] [place] INJECTION 11/07/2015 Patient Education: Patient Medication Summary Completed 11/07/2015 Appointment: Joseaf Talamantes WPtel: [address] [place] [phone] [place] INJECTION 08/01/2015 Patient Education: Patient Medication Summary Completed 08/01/2015 Appointment: Josefa Talamantes WPtel: [address] [place], [place] [id number] [place] INJECTION 05/11/2015 Patient Education: Patient Medication Summary Completed 05/11/2015 Appointment: Malgorzata Islas WPtel: [address] [place], [place] [id number] [place] PAP 04/05/2015 Appointment: Josefa Talamantes WPtel: [address] [place], [place] [phone] [place] INJECTION 02/16/2015 Patient Education: Patient Medication Summary Completed 02/16/2015 Visit Plan: Daily nasal saline rinses Fl onase nasal spray and daily Zyrtec Medrol dose pack Z-jhonathan as directed 01/26/2015 Appointment: Malgorzata Islas WPtel: [address] [place], [place] [phone] [place] ACUTE ILLNESS 01/26/2015 Patient Education: Patient Medication Summary Completed 01/26/2015 Appointment: Josefa Talamantes WPtel: [address] [place], [place] [phone] [place] INJECTION 11/29/2014 Patient Education: Patient Medication Summary Completed 11/29/2014 Appointment: Josefa Talamantes WPtel: [address] [place], [place] [phone] [place] INJECTION 09/09/2014 Patient Education: Patient Medication Summary Completed 09/09/2014 Appointment: Malgorzata Islas WPtel: [address] [place], [place] [phone] [place] FOLLOW UP 06/16/2014 Patient Education: Patient Medication Summary Completed 06/16/2014 Appointment: Malgorzata Islas WPtel: [address] [place], [place] [phone] 06/02/14 appointment scheduled 06/03/14 no showed PAP 06/03/2014 Appointment: Malgorzata Islas WPtel: [address] [place], [place] [phone] FOLLOW UP 01/28/2014 Patient Education: Patient Medication Summary Completed 01/28/2014 Care Plan: COMPREHEN METABOLIC PANEL [facility] : [id number] Ordered 01/28/2014 Care Plan: AMYLASE Pending 4 Appointment: Malgorzata Islas WPtel: [address] [place], [place] [phone] FOLLOW UP 12/10/2013 Patient Education: Patient Medication Summary Completed 12/10/2013 Appointment: Malgorzata Islas WPtel: [address] [place], [place] [phone] [place] 11/11 vm 11/12 No Show FOLLOW UP 11/12/2013 Appointment: Malgorzata Islas WPtel: [address] [place], [place] [phone] [place] FOLLOW UP 10/20/2013 Patient Education: Patient Medication Summary Completed 10/20/2013 Visit Plan: Quantitative Hcg and CBC tod ay. Transvaginal/Transabdominal sonogram stat Discussed with GIS SCIENTIST and BHCG 343 so will recheck in 1week as long as not worsening 10/07/2013 Appointment: Malgorzata Islas WPtel: [address] [place], [place] [phone] ACUTE ILLNESS 10/07/2013 Patient Education: Patient Medication Summary Completed 10/07/2013 Appointment: Malgorzata Islas WPtel: [address] [place] [address] ACUTE ILLNESS 09/15/2013 Patient Education: Patient Medication Summary Completed 09/15/2013 Appointment: Malgorzata Islas WPtel: [address] [place], [place] [id number] ACUTE ILLNESS 06/24/2013 Patient Education: Patient Medication Summary Completed 06/24/2013 Appointment: Malgorzata Islas WPtel: [address] [place], [place] [phone] [place] appt was scheduled today then patient no showed the visit ACUTE ILLNESS 05/21/2013 Visit Plan: Check CMP, CBC, UA CT scan o f abdomen Omeprazole 03/05/2013 Appointment: Josefa Talamantes WPtel: [address] [place] [address] ACUTE ILLNESS 03/05/2013 Appointment: Josefa Talamantes WPtel: [address] [place] [address] 03/02 canceled, wrong patient FOLLOW UP Patient Education: Patient Medication Summary Completed 03/05/2013 Appointment: Malgorzata Islas WPtel: [address] [place] [address] ACUTE ILLNESS 02/09/2013 Patient Education: Patient Medication Summary Completed 02/09/2013 Appointment: Justine Ortega WPtel: [address] [place], [place] [id number] ACUTE ILLNESS 09/08/2010 Patient Education: Patient Medication Summary Completed 09/08/2010 Appointment: Justine Ortega WPtel: [address] [place], [place] [id number] PAP 08/08/2010 Appointment: Justine Ortega WPtel: [address] [place], [place] [phone] ACUTE ILLNESS 07/24/2010 Patient Education: Patient Medication Summary Completed 07/24/2010 Visit Plan: All warts shaved with 11-rekha de scalpel and then cryotherapy x3 Will followup with DNCB treatment 03/08/2010 App[facility]ment: [facility] [address] [id number] [facility] 03/08/2010 Patient Education: Patient Medication Summary Completed 03/08/2010 Appointment: Jose[facility] [address] [id number] PAP 09/14/2009 Referral: Roney Galloway WPtel: [address] Referral Initiated Referral: Brian Floyd WPtel: [address] [id number] [place] Referral Initiated Referral: Referral Initiated Instructions [...] CBC today. Transvaginal/Transabdominal sonogram stat Discussed with GIS SCIENTIST and BHCG 343 so will recheck in [...]
--- OUTSIDE RECORDS SUMMARY | 2019-12-11 22:06 | XMS REPORT | CCD ---
Author Author Brenda Talamantes D.O. Organization JOSEFA TALAMANTES DO [facility] Address [address] [place] [address] Phone Care Team Providers Care Refining Equipment Operator Name Role Phone Josefa Talamantes D.O., PP Unavailable CCM Unavailable Summary Purpose Interface Exchange Insurance Providers Payer name Policy type / Coverage type Covered constitution party ID Effective Begin Date Effective End Date [facility] milog Insurance [id number] Unknown Family History Family History data not found Social History Social History Element Codes Description Effective Dates Tobacco history SNOMED CT: 175849906 Unknown if ever smoked 01/12 Allergies, Adverse [...] Fill Instructions ibuprofen 800 mg tablet RxNorm: 089258 1 Tablet(s) Oral Q8H as needed 03/16/2019 06/05/2019 Inactive Cipro 500 mg tablet RxNorm: 674003 1 Tablet(s) Oral two times a day 03/04/2019 03/11/2019 Inactive Cipro 500 mg tablet RxNorm: 777518 1 Tablet(s) Oral two times a day 03/04/2019 03/03/2019 Inactive Macrobid 100 mg capsule RxNorm: 783216 1 Capsule(s) Oral two ti mes a day 02/16/2019 02/15/2019 Inactive Macrobid 100 mg capsule RxNorm: 507060 1 Capsule(s) Oral two ti mes a [...] 11/24/2017 Inactive Pepcid 40 mg tablet RxNorm: 094446 1 Tablet(s) PO QD 10/18/201603/02 Inactive Depo-Provera 150 mg/mL intramuscular suspension RxNorm: 1000 128 Milliliter(s) 1 Milliliter(s) IM 10/10/2016 06/04/2017 Inactive Tamiflu 75 mg capsule RxNorm: 048943 1 Capsule(s) PO BID 08/08/2016 0 08/12/2016 Inactive Levsin 0.125 mg tablet RxNorm: 3376324 1 Tablet(s) PO TID for fl ank pain 05/15/2016 10/17/2016 Inactive Bactrim DS 800 mg-160 mg tablet RxNorm: 117936 1 Tablet(s) PO BID 0 12/23/2015 01/01/2016 Inactive mupirocin 2 % topical ointment RxNorm: 377159 Application TOP TID 0 12/23/2015 12/29/2015 Inactive Depo-Provera 150 mg/mL intramuscular suspension RxNorm: 1000 128 Milliliter(s) 1 Milliliter(s) IM 11/08/2015 10/09/2016 Inactive Xanax 0.25 mg tablet RxNorm: 228136 TAKE ONE-HALF TO ON E TABLET BY MOUTH NEEDED FOR ANXIETY 04/11/2015 05/10/2015 Inactive Generic For:X ANAX 0.25 MG TABLET 04/11/2015 2:54:57 PM Depo-Provera 150 mg/mL intramuscular suspension RxNorm: 1000 128 Milliliter(s) 1 Milliliter(s) IM 02/15/2015 11/07/2015 Inactive azithromycin 250 mg tablet RxNorm: 836272 2 Tablet(s) P O today, then one tablet on days 2 - 5 01/26/2015 12/22/2015 Inactive Medrol (Jhonathan) 4 mg tablets in a dose pack RxNorm: 840321 Tablet(s) P O 01/26/2015 12/22/2015 Inactive Depo-Provera 150 mg/mL intramuscular suspension RxNorm: 1000 128 1 Milliliter(s) IM 09/06/2014 02/15/2015 Inactive Xanax 0.25 mg tablet RxNorm: 956559 1/2 - 1 Tablet(s) PO as nee ded for anxiety 06/16/2014 04/12/2015 Inactive Zoloft 50 mg tablet RxNorm: 816040 1 Tablet(s) PO QD 06/16/201412/21 Inactive Flexeril [...] 2014 Inactive Xanax 0.25 mg tablet RxNorm: 716167 1/2 - 1 Tablet(s) PO as nee ded for anxiety 01/28/2014 06/15/2014 Inactive naproxen 500 mg tablet RxNorm: 774836 1 Tablet(s) PO BID 12/10/2013 0 01/08/2014 Inactive Zoloft 50 mg tablet RxNorm: 763863 1 Tablet(s) PO QD 12/10/201304/08 Inactive Xanax 0.25 mg tablet RxNorm: 512244 1/2 - 1 Tablet(s) PO as nee ded for anxiety 12/10/2013 01/27/2014 Inactive Xanax 0.25 mg tablet RxNorm: 884491 1 Tablet(s) PO Q8H 10/20/2013 Inactive Zoloft 50 mg tablet RxNorm: 436116 1/2 Tablet(s) PO x 6 days then on1 tablet daily 10/20/2013 11/18/2013 Inactive Loestrin Fe 20 (28) 1 mg-20 mcg tablet RxNorm: 9752746 1 Table t(s) PO QD 10/20/2013 05/03/2014 Inactive phenazopyridine 100 mg tablet RxNorm: 7721812 1 Tablet(s) PO Q8H 06/26/2013 Inactive Macrobid 100 mg capsule RxNorm: 240341 1 Capsule(s) PO BID 06/25/19 14 07/04/2013 Inactive phenazopyridine 100 mg tablet RxNorm: 5004432 1 Tablet(s) PO Q8H 06/24/2013 Inactive Macrobid 100 mg capsule RxNorm: 844572 1 Capsule(s) PO BID 07/25/19 11 08/02/2010 Inactive Apri 0.15 mg-30 mcg tablet RxNorm: 504233 1 Tablet(s) PO QD As directed. No Start Date 06/23/2013 Inactive omeprazole 40 mg capsule,delayed release RxNorm: 237450 1 Capsule(s) PO QD for stomach No Start Date 06/23/2013 Inactive naproxen 500 mg tablet RxNorm: 630359 1 Tablet(s) PO BID No Start D ate 06/15/2014 Inactive hydrocodone 10 mg-acetaminophen 325 mg tablet RxNorm: 045419 Tablet(s) PO as needed for pain No Start Date 12/22/2015 Inactive Zoloft 50 mg tablet RxNorm: 093892 1 Tablet(s) PO QD No Start Date Inactive hydrocodone 5 mg-acetaminophen 325 mg tablet RxNorm: 875093 1 Tablet(s) PO QID as needed for pain No Start Date 09/14/2013 Inactive Medication Administered No Medication Administered data Immunizations No Immunization data Results Observation Observation Code Item Item Code Result Date S ervice Location LIPASE 97027 LIPASE 14 IU/L 01/28/2014 Unknown COMPLETE BLOOD COUNT [id number] WBC 6.5 10e9/L 01/29/20 14 Unknown COMPLETE BLOOD COUNT [id number] RBC 4.54 10e12/L 2013 Unknown COMPLETE BLOOD COUNT [id number] HGB 12.1 g/dL 4 Unknown COMPLETE BLOOD COUNT [id number] HCT DET 38.0 % 4 Unknown COMPLETE BLOOD COUNT [id number] MCV 83.7 fL 4 Unknown COMPLETE BLOOD COUNT [id number] MCH 26.7 pg 4 Unknown COMPLETE BLOOD COUNT [id number] MCHC 31.8 g/dL 4 Unknown COMPLETE BLOOD COUNT [id number] PLT 218 10e9/L 01/29/20 14 Unknown COMPLETE BLOOD COUNT [id number] MPV 12.8 fL 4 Unknown COMPLETE BLOOD COUNT [id number] RACHNA % 56.5 % 4 Unknown COMPLETE BLOOD COUNT [id number] LY % 32.3 % 4 Unknown COMPLETE BLOOD COUNT [id number] MON % 8.6 % 4 Unknown COMPLETE BLOOD COUNT [id number] EOS % 2.1 % 4 Unknown COMPLETE BLOOD COUNT [id number] BASO % 0.5 % 4 Unknown COMPLETE BLOOD COUNT [id number] RDW 18.4 % 4 Unknown COMPLETE BLOOD COUNT [id number] ABS RACHNA 3.67 10e9/L 014 Unknown COMPLETE BLOOD COUNT [id number] ABS LYMPH 2.10 10e9/L 014 Unknown COMPLETE BLOOD COUNT [id number] ABS MONO 0.56 10e9/L 014 Unknown COMPLETE BLOOD COUNT [id number] ABS EOS 0.14 10e9/L 014 Unknown COMPLETE BLOOD COUNT [id number] ABS BASO 0.03 10e9/L 014 Unknown COMPLETE BLOOD COUNT [id number] RDW-SD 55.5 fL 4 Unknown COMPREHENSIVE METABOLIC 56097 AST 13 U/L 2013 Unknown COMPREHENSIVE METABOLIC 01516 ALT 7 IU/L 2013 Unknown COMPREHENSIVE METABOLIC 74996 BUN 8 MG/DL 2013 Unknown COMPREHENSIVE METABOLIC 31266 ALBUMIN 4.5 GM/DL 2013 Unknown COMPREHENSIVE METABOLIC 06615 CHLORIDE 106 MMOL/L 01/28 Unknown COMPREHENSIVE METABOLIC 82627 BILI TOT 0.4 MG/DL 2013 Unknown COMPREHENSIVE METABOLIC 16716 ALK PHOS 55 U/L 2013 Unknown COMPREHENSIVE METABOLIC 61417 SODIUM 138 MMOL/L 01/28 Unknown COMPREHENSIVE METABOLIC 32069 CREATININE 0.73 MG/DL 01/11 Unknown COMPREHENSIVE METABOLIC 83769 CALCIUM 9.9 MG/DL 2013 Unknown COMPREHENSIVE METABOLIC 09731 POTASSIUM 3.8 MMOL/L 01/28 Unknown COMPREHENSIVE METABOLIC 90413 PROT TOT 7.4 GM/DL 2013 Unknown COMPREHENSIVE METABOLIC 25718 Glucose 96 MG/DL 2013 Unknown COMPREHENSIVE METABOLIC 20077 BICARB 27 MMOL/L 2013 Unknown COMPREHENSIVE METABOLIC 02874 ANION GAP 5 MEQ/L 2013 Unknown AMYLASE 88309 AMYLASE 42 IU/L 01/28/2014 Unknown GFR CALC [id number] GFR AA >60 ML/MIN 01/28/2014 Unknown GFR CALC [id number] GFR NON-AA >60 ML/MIN 01/28/2014 Unknown Procedures Procedure Codes Date URINALYSIS NONAUTO W/O SCOPE CPT-4: 35701 06/05/2019 CEFTRIAXONE SODIUM INJECTION CPT-4: J0696 06/05/2019 THER/PROPH/DIAG INJ SC/IM CPT-4: 23876 06/05/2019 URINE CULTURE/ COLONY COUNT CPT-4: 12590 06/05/2019 URINE CULTURE/ COLONY COUNT CPT-4: 38758 03/02/2019 THER/PROPH/DIAG INJ SC/IM CPT-4: 21080 02/16/2019 URINE CULTURE/ COLONY COUNT CPT-4: 50352 02/16/2019 URINALYSIS NONAUTO W/O SCOPE CPT-4: 45070 02/16/2019 URINE TEST CPT-4: 79249 02/16/2019 THER/PROPH/DIAG INJ SC/IM CPT-4: 01590 05/21/2018 THER/PROPH/DIAG INJ SC/IM CPT-4: 11132 11/26/2017 THER/PROPH/DIAG INJ SC/IM CPT-4: 10749 08/27/2017 THER/PROPH/DIAG INJ SC/IM CPT-4: 29414 06/06/2017 URINALYSIS NONAUTO W/O SCOPE CPT-4: 30005 06/06/2017 GC/CHLAMYDIA DNA (-[facility]) CPT-4: 90852|63516 8 URINE CULTURE/ COLONY COUNT CPT-4: 20120 06/06/2017 THER/PROPH/DIAG INJ SC/IM CPT-4: 39553 01/04/2017 SPECIMEN HANDLING OFFICE-LAB CPT-4: 34687 10/18/2016 THER/PROPH/DIAG INJ SC/IM CPT-4: 08514 10/12/2016 INFLUENZA ASSAY W/OPTIC CPT-4: 47345 08/08/2016 THER/PROPH/DIAG INJ SC/IM CPT-4: 18794 07/25/2016 THER/PROPH/DIAG INJ SC/IM CPT-4: 24814 05/03/2016 THER/PROPH/DIAG INJ SC/IM CPT-4: 88156 02/20/2016 URINE TEST CPT-4: 30712 02/20/2016 AEROBIC WOUND CULTURE & STN CPT-4: 06932 12/23/2015 THER/PROPH/DIAG INJ SC/IM CPT-4: 84743 11/07/2015 URINE TEST CPT-4: 78487 11/07/2015 THER/PROPH/DIAG INJ SC/IM CPT-4: 89868 08/01/2015 THER/PROPH/DIAG INJ SC/IM CPT-4: 36921 05/11/2015 THER/PROPH/DIAG INJ SC/IM CPT-4: 01742 02/16/2015 THER/PROPH/DIAG INJ SC/IM CPT-4: 65636 11/29/2014 THER/PROPH/DIAG INJ SC/IM CPT-4: 47836 09/09/2014 URINE TEST CPT-4: 99651 06/16/2014 THER/PROPH/DIAG INJ SC/IM CPT-4: 35330 06/16/2014 ROUTINE VENIPUNCTURE CPT-4: 73700 10/07/2013 COMPLETE CBC W/AUTO DIFF WBC CPT-4: 49943 10/07/2013 CHORIONIC GONADOTROPIN TEST CPT-4: 43920 10/07/2013 URINE TEST CPT-4: 64357 09/15/2013 URINALYSIS NONAUTO W/O SCOPE CPT-4: 61640 06/24/2013 URINE CULTURE/ COLONY COUNT CPT-4: 47052 06/24/2013 URINE TEST CPT-4: 63499 09/08/2010 URINALYSIS NONAUTO W/O SCOPE CPT-4: 09786 07/24/2010 URINE CULTURE/ COLONY COUNT CPT-4: 88932 07/24/2010 DESTRUCT PREMALG LESION (Cryosurgery) CPT-4: 75558 DESTRUCT PREMALG LES 2-14 CPT-4: 41433 03/08/2010 Vital Signs Date Vital 06/05/2019 Blood Pressure 1: 131/82 Code: 8480-6 BMI: 26.3 Code: 51558-7 Heart Rate 1: 109 bpm Height: 5'9" Respiratory Rate: 16 bpm SpO2: 99% Tempera ture: 36.7 (C) / 98.1 (F) Weight: 178 lbs 03/16/2019 Blood Pressure 1: 132/86 Code: 8480-6 Heart Rate 1: 73 bpm SpO2: 99% Temperature: 36.6 (C) / 97.9 (F) Weight: 158 lbs 03/03/2018 Blood Pressure 1: 120/88 Code: 8480-6 BMI: 23.9 Code: 93387-5 Heart Rate 1: 81 bpm Height: 5'9" Respiratory Rate: 18 bpm SpO2: 99% Tempera ture: 36.1 (C) / 97.0 (F) Weight: 162 lbs 10/18/2016 Blood Pressure 1: 108/ Code: 8480-6 BMI: 22.6 Code: 48265-5 Heart Rate 1: 100 bpm Height: 5'9" Respiratory Rate: 20 bpm SpO2: 98% Tempera ture: 37.1 (C) / 98.8 (F) Weight: 153 lbs 08/08/2016 Blood Pressure 1: 114/78 Code: 8480-6 Heart Rate 1: 102 bpm Respiratory Rate: 20 bpm SpO2: 98% Temperature: 36.4 (C) / 97.6 (F) We ight: 152 lbs 05/15/2016 Blood Pressure 1: 124/ Code: 8480-6 BMI: 23.2 Code: 13956-3 Heart Rate 1: 100 bpm Height: 5'9" Respiratory Rate: 20 bpm Temperature: 37 .0 (C) / 98.6 (F) Weight: 157 lbs 12/23/2015 Blood Pressure 1: 124 Code: 8480-6 BMI: 23.0 Code: 83812-6 Heart Rate 1: 92 bpm Height: 5'9" Respiratory Rate: 20 bpm SpO2: 97% Tempera ture: 36.9 (C) / 98.5 (F) Weight: 156 lbs 01/26/2015 Blood Pressure 1: 118/78 Code: 8480-6 BMI: 21.3 Code: 09545-9 Heart Rate 1: 100 bpm Height: 5'9" Respiratory Rate: 20 bpm SpO2: 97% Tempera ture: 36.6 (C) / 97.8 (F) Weight: 144 lbs 06/16/2014 Blood Pressure 1: 11878 Code: 8480-6 BMI: 23.5 Code: 53017-2 Heart Rate 1: 78 bpm Height: 5'9" Respiratory Rate: 18 bpm Temperature: 36 .1 (C) / 97.0 (F) Weight: 159 lbs 01/28/2014 Blood Pressure 1: 124/78 Code: 8480-6 BMI: 23.2 Code: 51254-6 Heart Rate 1: 88 bpm Height: 5'9" Respiratory Rate: 22 bpm Temperature: 36 .1 (C) / 97.0 (F) Weight: 157 lbs 12/10/2013 Blood Pressure 1: 124/ Code: 8480-6 BMI: 23.0 Code: 27914-5 Heart Rate 1: 82 bpm Height: 5'9" Respiratory Rate: 20 bpm Temperature: 36 .2 (C) / 97.2 (F) Weight: 156 lbs 10/20/2013 Blood Pressure 1: 118/82 Code: 8480-6 Heart Rate 1: 84 bpm Respiratory Rate: 22 bpm Temperature: 36.5 (C) / 97.7 (F) Weight: 150 lbs 10/07/2013 Blood Pressure 1: 120/80 Code: 8480-6 BMI: 22.2 Code: 03893-2 Heart Rate 1: 68 bpm Height: 5'9" Respiratory Rate: 22 bpm Temperature: 36 .2 (C) / 97.2 (F) Weight: 150 lbs 09/15/2013 Blood Pressure 1: 118/68 Code: 8480-6 BMI: 22.0 Code: 38107-3 Heart Rate 1: 78 bpm Height: 5'9" Respiratory Rate: 20 bpm Temperature: 36 .1 (C) / 97.0 (F) Weight: 149 lbs 06/24/2013 Blood Pressure 1: 112/74 Code: 8480-6 Heart Rate 1: 74 bpm Respiratory Rate: 20 bpm Temperature: 36.6 (C) / 97.9 (F) Weight: 150 lbs 03/05/2013 Blood Pressure 1: 126/88 Code: 8480-6 BMI: 23.5 Code: 96372-6 Heart Rate 1: 80 bpm Height: 5'9" Respiratory Rate: 20 bpm Temperature: 36 .6 (C) / 97.9 (F) Weight: 159 lbs 02/09/2013 Blood Pressure 1: 110/68 Code: 8480-6 BMI: 21.9 Code: 05771-7 Heart Rate 1: 74 bpm Height: 5'9" Respiratory Rate: 22 bpm Temperature: 36 .8 (C) / 98.2 (F) Weight: 148 lbs 09/08/2010 Blood Pressure 1: 124/90 Code: 8480-6 BMI: 21.4 Code: 40757-6 Height: 5'10" Temperature: 36.4 (C) / 97.6 [...] in female[ICD10: R10.2] Keyanna SNELLNELIDAAngelique KATTY Connors THADABNERuniRow CPT-4: 60693 06/05/2019 ([id number]) OFFICE/OUTPATIENT VISIT EST Diagnosis: Left wrist pain[ICD10: M25.532] Diagnosis: Swelling of left upper extremity[ICD10: M79.89] Keyanna PINTOLINE SergioMaria Teresa DUC [facility] CPT-4: 41862 03/16/2019 ([id number]) NURSE/OUTPATIENT VISIT EST Diagnosis: Urinary tract infection[ICD10: N39.0] Josefa Thadmamadou DE SOUZA SergioMaria Teresa THADABNERNENA [facility] CPT-4: 29751 03/02/2019 ([id number]) NURSE/OUTPATIENT VISIT EST Diagnosis: Irregular menstruation, unspecified[ICD10: N92.6] Diagnosis: Urinary tract infection[ICD10: N39.0] Josefa Thadmamadou Connors THADABNERNENA [facility] CPT-4: 60765 02/16/2019 ([id number]) NURSE/OUTPATIENT VISIT EST Diagnosis: Irregular menstruation, unspecified[ICD10: N92.6] Josefa Thadabnernena JOSEFA SergioMaria Teresa THADABNERNENA [facility] CPT-4: 51134 05/21/2018 ([id number]) OFFICE/OUTPATIENT VISIT EST Diagnosis: Irregular menstruation, unspecified[ICD10: N92.6] Diagnosis: Diseases of lips[ICD10: K13.0] Diagnosis: 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] Keyanna PINTOLINE SergioMaria Teresa DUC [facility] CPT-4: 93565 03/03/2018 ([id number]) NURSE/OUTPATIENT VISIT EST Diagnosis: Irregular menstruation, unspecified[ICD10: N92.6] Josefa TALAMANTES DO [facility] CPT-4: 14901 11/26/2017 ([id number]) OFFICE/OUTPATIENT VISIT EST Diagnosis: Irregular menstruation, unspecified[ICD10: N92.6] Josefa TALAMANTES DO [facility] CPT-4: 81782 08/27/2017 ([id number]) OFFICE/OUTPATIENT VISIT EST Diagnosis: Dysuria[ICD10: R30.0] Diagnosis: Irregular menstruation, unspecified[ICD10: N92.6] Josefa TALAMANTES DO [facility] CPT-4: 20179 06/06/2017 ([id number]) OFFICE/OUTPATIENT VISIT EST Diagnosis: Irregular menstruation, unspecified[ICD10: N92.6] Josefa TALAMANTES DO [facility] CPT-4: 80176 01/04/2017 ([id number]) PREV VISIT EST AGE 18-39 Diagnosis: Encounter for general adult medical examination without abnormal findings[ICD10: Z00.00] Diagnosis: Encounter for gynecological examination (general) (routine) without abnormal findings[ICD10: Z01.419] Diagnosis: Gastro-esophageal reflux disease without esophagitis[ICD10: K21.9] Diagnosis: Dysphagia, pharyngeal phase[ICD10: R13.13] Josefa TALAMANTES DO [facility] CPT-4: 69790 10/18/2016 ([id number]) OFFICE/OUTPATIENT VISIT EST Diagnosis: Irregular menstruation, unspecified[ICD10: N92.6] Josefa TLAAMANTES DO [facility] CPT-4: 10033 10/12/2016 ([id number]) OFFICE/OUTPATIENT VISIT EST Diagnosis: Fever, unspecified[ICD10: R50.9] Diagnosis: Influenza due to identified novel influenza A virus with other respiratory manifestations[ICD10: J09.X2] Catrina Bran JOSEFA TALAMANTES DO [facility] CPT-4: 81581 08/08/2016 ([id number]) OFFICE/OUTPATIENT VISIT EST Diagnosis: Irregular menstruation, unspecified[ICD10: N92.6] Josefa TALAMANTES DO [facility] CPT-4: 62427 07/25/2016 ([id number]) OFFICE/OUTPATIENT VISIT EST Diagnosis: Right upper quadrant pain[ICD10: R10.11] Diagnosis: Unspecified abdominal pain[ICD10: R10.9] Josefa TALAMANTES DO [facility] CPT-4: 20369 05/15/2016 ([id number]) OFFICE/OUTPATIENT VISIT EST Diagnosis: Irregular menstruation, unspecified[ICD10: N92.6] Josefa TALAMANTES DO [facility] CPT-4: 29642 05/03/2016 ([id number]) OFFICE/OUTPATIENT VISIT EST Diagnosis: Irregular menstruation, unspecified[ICD10: N92.6] Josefa TALAMANTES DO [facility] CPT-4: 13164 02/20/2016 OFFICE/OUTPATIENT VISIT EST Diagnosis: Cutaneous abscess of buttock[ICD10: L02.31] Kitty Caldera JOSEFA TALAMANTES DO [facility] CPT-4: 39309 12/23/2015 ([id number]) OFFICE/OUTPATIENT VISIT EST Diagnosis: Irregular menstruation, unspecified[ICD10: N92.6] Josefa TALAMANTES DO [facility] CPT-4: 60927 11/07/2015 ([id number]) OFFICE/OUTPATIENT VISIT EST Diagnosis: Irregular menstruation, unspecified[ICD10: N92.6] Josefa TALAMANTES DO [facility] CPT-4: 15418 08/01/2015 ([id number]) OFFICE/OUTPATIENT VISIT EST Diagnosis: Irregular menstruation, unspecified[ICD10: N92.6] Josefa TALAMANTES DO [facility] CPT-4: 08225 05/11/2015 ([id number]) OFFICE/OUTPATIENT VISIT EST Diagnosis: Irregular menstruation, unspecified[ICD10: N92.6] Josefa TALAMANTES DO [facility] CPT-4: 21418 02/16/2015 OFFICE/OUTPATIENT VISIT EST Diagnosis: SINUSITIS, ACUTE[ICD9: 461.9] Malgorzata VanBecelaere JOSEFA S. ORENDER DO [facility] CPT-4: 31715 01/26/2015 ([id number]) OFFICE/OUTPATIENT VISIT EST Diagnosis: IRREGULAR MENSTRUATION[ICD9: 626.4] Josefa TALAMANTES DO [facility] CPT-4: 41915 11/29/2014 ([id number]) OFFICE/OUTPATIENT VISIT EST Diagnosis: IRREGULAR MENSTRUATION[ICD9: 626.4] Josefa TALAMANTES [facility] CPT-4: 51976 09/09/2014 ([id number]) OFFICE/OUTPATIENT VISIT EST Diagnosis: IRREGULAR MENSTRUATION[ICD9: 626.4] Diagnosis: General counseling and advice on contraceptive management[ICD9: V25.09] Diagnosis: Anxiety and depression[ICD9: 300.4] Malgorzata TALAMANTES [facility] CPT-4: 77239 06/16/2014 OFFICE/OUTPATIENT VISIT EST Diagnosis: Right upper quadrant pain[ICD9: 789.01] Malgorzata WINCHESTERER [facility] CPT-4: 10434 01/28/2014 OFFICE/OUTPATIENT VISIT EST Diagnosis: Right upper quadrant pain[ICD9: 789.01] Malgorzata TALAMANTES [facility] CPT-4: 46002 12/10/2013 OFFICE/OUTPATIENT VISIT EST Diagnosis: Anxiety and depression[ICD9: 300.4] Malgorzata VillanuevaErinjuanjo ALANIZ SMaria Teresa TALAMANTES [facility] CPT-4: 17468 10/20/2013 OFFICE/OUTPATIENT VISIT EST Diagnosis: Menorrhagia[ICD9: 626.2] Malgorzata VillanuevaErinjuanjo RIVERA [facility] CPT-4: 08766 10/07/2013 OFFICE/OUTPATIENT VISIT EST Diagnosis: IRREGULAR MENSTRUATION[ICD9: 626.4] Malgorzata VillanuevaErinjuanjo TALAMANTES [facility] CPT-4: 27640 09/15/2013 OFFICE/OUTPATIENT VISIT EST Diagnosis: HEMATURIA NOS[ICD9: 599.70] Diagnosis: Abdominal discomfort in right upper quadrant[ICD9: 789.01] Malgorzata Hill. ANNABELLAER [facility] CPT-4: 23984 06/24/2013 ([id number]) OFFICE/OUTPATIENT VISIT EST Diagnosis: ABDOMINAL PAIN[ICD9: 789.00] Diagnosis: GERD[ICD9: 530.81] Josefa Winchesternena TALAMANTES DO [facility] CPT-4: 28331 03/05/2013 OFFICE/OUTPATIENT VISIT EST Diagnosis: General counseling and advice on contraceptive management[ICD9: V25.09] Diagnosis: IRREGULAR MENSTRUATION[ICD9: 626.4] Malgorzata TALAMANTES DO [facility] CPT-4: 98181 02/09/2013 ([id number]) OFFICE/OUTPATIENT VISIT GISEL TALAMANTES DO [facility] CPT-4: 00991 09/08/2010 ([id number]) OFFICE/OUTPATIENT VISIT GISEL TALAMANTES DO [facility] CPT-4: 82345 07/24/2010 Plan of Care Planned Activity Notes [...] ICD-9 : 788.1 ICD-10 : R30.0 06/05/2019 Visit Diagnosis Plan: Left wrist pain [...] ICD-10 : M25.532 03/16/2019 Appointment: Keyanna Mejía [address] [place], [place] [id number] [place] [address] Follow Up 03/16/2019 Appointment: Josefa Talamantes WPtel: [facility] [place] [address] 03/02/2019 Appointment: Josefa Talamantes WPtel: [address] [place], [place] [phone] [place] INJECTION 02/16/2019 Appointment: Josefa Talamantes WPtel: [address] [place], [place] [phone] [place] INJECTION 05/21/2018 Visit Diagnosis Plan: Diseases [...] in office and negative. patient to pick pulling machine tender depo prescription and bring back to office for injection. had pap october of 2016. not due until 2019 or patient turns 29. ICD-9 : 626.4 ICD-10 : N92.6 03/03/2018 Appointment: Keyanna Mejía [address] [place], [place] [phone] [place] ACUTE ILLNESS 03/03/2018 Patient Education: Patient Medication Summary Completed 03/03/2018 Care Plan: US EXAM OF HEAD AND NECK thyroid LOIN C : 32733-2 Pending 03/03/2018 Appointment: Josefa Talamantes WPtel: [address] [place], [place] [phone] [place] CANCELED 02/27/2018 Appointment: Josefa Talamantes WPtel: [address] [place], [place] [phone] [place] INJECTION 11/26/2017 Patient Education: Patient Medication Summary Completed 11/26/2017 Appointment: Josefa Talamantes WPtel: [address] [place], [place] [phone] [place] INJECTION 08/27/2017 Patient Education: Patient Medication Summary Completed 08/27/2017 Appointment: Josefa Talamantes WPtel: [address] [place], [place] [phone] [place] INJECTION 06/06/2017 Patient Education: Patient Medication Summary Completed 06/06/2017 Appointment: Josefa Talamantes WPtel: [address] [place], [place] [phone] [place] INJECTION 01/04/2017 Patient Education: Patient Medication Summary Completed 01/04/2017 Appointment: Josefa Talamantes WPtel: [address] [place], [place] [phone] [place] 11/19 lm `sl 11/21 lm `sl NO SHOW 11/22/19 Patient Education: Patient Medication Summary Completed 10/22/2016 Care Plan: US EXAM OF HEAD AND NECK Thyroid Ultrasound LOIN C : 99209-8 Pending 10/22/2016 Visit Diagnosis Plan: Dysphagia, pharyngeal [...] V72.31 ICD-10 : Z01.419 10/18/2016 Appointment: Josefa Talamantes WPtel: [address] [place], [place] [phone] [place] 10/17 lm `sl Annual Well Visit 10/18/2016 Patient Education: Patient Medication Summary Completed 10/18/2016 Appointment: Josefa Talamantes WPtel: [address] [place], [place] [phone] [place] INJECTION 10/12/2016 Patient Education: Patient Medication Summary Completed 10/12/2016 Visit Diagnosis Plan: Influenza due to i dentified novel influenza A virus with other respiratory manifestations Discussion: Flu A positive Rx as above Supportive care otherwise Contagious precautions discussed Notify kids' provider of exposure for their instructions ICD-9 : 488.02 ICD-10 : J09.X2 08/08/2016 Appointment: Catrina Bran [address] [place], [place] [phone] ACUTE ILLNESS 08/08/2016 Patient Education: Patient Medication Summary Completed 08/08/2016 Appointment: Josefa Talamantes WPtel: [address] [place], [place] [phone] [place] INJECTION 07/25/2016 Patient Education: Patient Medication Summary Completed 07/25/2016 Visit Plan: Finish abx and then recultur e 48hrs after completion Add levsin and zorvolex 05/15/2016 Appointment: Josefa Talamantes WPtel: [address] [place], [place] [phone] [place] 1/ lm `sl 05/15 confirmed~ Hospital Follow Up 0 05/15/2016 Patient Education: Patient Medication Summary Completed 05/15/2016 Appointment: Catrina Bran [address] [place], [place] [phone] 05/09 admitted into the hospital last night~ ACUTE ILLNESS 05/09/2016 Appointment: Josefa Talamantes WPtel: [address] [place], [place] [phone] [place] INJECTION 05/03/2016 Patient Education: Patient Medication Summary Completed 05/03/2016 Appointment: Josefa Talamantes WPtel: [address] [place], [place] [id number] [place] INJECTION 02/20/2016 Patient Education: Patient Medication [...] C&S obtained 12/23/2015 Appointment: Kitty Caldera WPtel: [address] [place], [place] [phone] [place] ACUTE ILLNESS 12/23/2015 Patient Education: Patient Medication Summary Completed 12/23/2015 Appointment: Josefa Talamantes WPtel: [address] [place], [place] [phone] [place] INJECTION 11/07/2015 Patient Education: Patient Medication Summary Completed 11/07/2015 Appointment: Josefa Talamantes WPtel: [address] [place], [place] [phone] [place] INJECTION 08/01/2015 Patient Education: Patient Medication Summary Completed 08/01/2015 Appointment: Josefa Talamantes WPtel: [address] [place], [place] [phone] [place] INJECTION 05/11/2015 Patient Education: Patient Medication Summary Completed 05/11/2015 Appointment: Malgorzata Islas WPtel: [address] [place], [place] [id number] [place] PAP 04/05/2015 Appointment: Josefa Talamantes WPtel: [address] [place], [place] [phone] [place] INJECTION 02/16/2015 Patient Education: Patient Medication Summary Completed 02/16/2015 Visit Plan: Daily nasal saline rinses Fl onase nasal spray and daily Zyrtec Medrol dose pack Z-jhonathan as directed 01/26/2015 Appointment: Malgorzata Islas WPtel: [address] [place], [place] [phone] [place] ACUTE ILLNESS 01/26/2015 Patient Education: Patient Medication Summary Completed 01/26/2015 Appointment: Josefa Talamantes WPtel: [address] [place], [place] [id number] [place] INJECTION 11/29/2014 Patient Education: Patient Medication Summary Completed 11/29/2014 Appointment: Josefa Talamantes WPtel: [address] [place], [place] [phone] [place] INJECTION 09/09/2014 Patient Education: Patient Medication Summary Completed 09/09/2014 Appointment: Malgorzata Islas WPtel: [address] [place] [address] FOLLOW UP 06/16/2014 Patient Education: Patient Medication Summary Completed 06/16/2014 Appointment: Malgorzata Islas WPtel: [address] [place], [place] [phone] 06/02/14 appointment scheduled 06/03/14 no showed PAP 06/03/2014 Appointment: Malgorzata Islas WPtel: [address] [place] [address] FOLLOW UP 01/28/2014 Patient Education: Patient Medication Summary Completed 01/28/2014 Care Plan: [place] : [address]-4 Ordered 01/28/2014 Care Plan: AMYLASE Pending 4 Appointment: Malgorzata Islas WPtel: [address] [place] [address] FOLLOW UP 12/10/2013 Patient Education: Patient Medication Summary Completed 12/10/2013 Appointment: Malgorzata Islas WPtel: [address] [place], [place] [phone] 11/11 11/12 No Show FOLLOW UP 11/12/2013 Appointment: Malgorzata Islas WPtel: [address] [place] [address] FOLLOW UP 10/20/2013 Patient Education: Patient Medication Summary Completed 10/20/2013 Visit Plan: Quantitative Hcg and CBC tod ay. Transvaginal/Transabdominal sonogram stat Discussed with MAGNETIC LOCATER and BHCG 343 so will recheck in 1week as long as not worsening 10/07/2013 Appointment: Malgorzata Islas WPtel: [address] [place] [phone] ACUTE ILLNESS 10/07/2013 Patient Education: Patient Medication Summary Completed 10/07/2013 Appointment: Malgorzata Islas WPtel: [address] [place], [place] [phone] [place] ACUTE ILLNESS 09/15/2013 Patient Education: Patient Medication Summary Completed 09/15/2013 Appointment: Malgorzata Islas WPtel: [address] [place] [phone] [place] ACUTE ILLNESS 06/24/2013 Patient Education: Patient Medication Summary Completed 06/24/2013 Appointment: Malgorzata Islas WPtel: [address] [place] [phone] [place] appt was scheduled today then patient no showed the visit ACUTE ILLNESS 05/21/2013 Visit Plan: Check CMP, CBC, UA CT scan o f abdomen Omeprazole 03/05/2013 Appointment: Josefa Talamantes WPtel: [address] [place], [place] [phone] ACUTE ILLNESS 03/05/2013 Appointment: Josefa Talamantes WPtel: [address] [place], [place] [phone] 03/02 canceled, wrong patient FOLLOW UP Patient Education: Patient Medication Summary Completed 03/05/2013 Appointment: Malgorzata Islas WPtel: [address] [place] [phone] ACUTE ILLNESS 02/09/2013 Patient Education: Patient Medication Summary Completed 02/09/2013 Appointment: Justine Ortega WPtel: [address] [place] [phone] [place] ACUTE ILLNESS 09/08/2010 Patient Education: Patient Medication Summary Completed 09/08/2010 Appointment: Justine Ortega WPtel: [address] [place] [phone] [place] PAP 08/08/2010 Appointment: Justine Ortega WPtel: [address] [place] [phone] [place] ACUTE ILLNESS 07/24/2010 Patient Education: Patient Medication Summary Completed 07/24/2010 Visit Plan: All warts shaved with 11-rekha de scalpel and then cryotherapy x3 Will followup with DNCB treatment 03/08/2010 Appointment: Josefa Talamantes WPtel: [address] [place], [place] [phone] ACUTE ILLNESS 03/08/2010 Patient Education: Patient Medication Summary Completed 03/08/2010 Appointment: Josefa Talamantes WPtel: [address] [id number] PAP 09/14/2009 Referral: Roney Galloway WPtel: [address] [facility] 3 [id number] Referral Initiated Referral: Brian Floyd WPtel: [address] [id number] [place] Referral Initiated Referral: Referral Initiated Instructions [...] CBC today. Transvaginal/Transabdominal sonogram stat Discussed with MAGNETIC LOCATER and BHCG 343 so will recheck in [...]
--- OUTSIDE RECORDS SUMMARY | 2019-12-11 22:07 | XMS REPORT | CCD ---
Author Author Brenda Talamantes D.O. Organization JOSEFA TALAMANTES DO [facility] Address [address] [place] [address] Phone Care Team Providers Care Card Stripper Name Role Phone Josefa Talamantes D.O., PP Unavailable CCM Unavailable Summary Purpose Interface Exchange Insurance Providers Payer name Policy type / Coverage type Covered republican ID Effective Begin Date Effective End Date [employer] [facility] [employer] [id number] Unknown Family History Family History data not found Social History Social History Element Codes Description Effective Dates Tobacco history SNOMED CT: 196746170 Unknown if ever smoked 01/12 Allergies, Adverse [...] Fill Instructions ibuprofen 800 mg tablet RxNorm: 465614 1 Tablet(s) Oral Q8H as needed 03/16/2019 06/05/2019 Inactive Cipro 500 mg tablet RxNorm: 777715 1 Tablet(s) Oral two times a day 03/04/2019 03/11/2019 Inactive Cipro 500 mg tablet RxNorm: 321193 1 Tablet(s) Oral two times a day 03/04/2019 03/03/2019 Inactive Macrobid 100 mg capsule RxNorm: 022772 1 Capsule(s) Oral two ti mes a day 02/16/2019 02/15/2019 Inactive Macrobid 100 mg capsule RxNorm: 226933 1 Capsule(s) Oral two ti mes a [...] 11/24/2017 Inactive Pepcid 40 mg tablet RxNorm: 513830 1 Tablet(s) PO QD 10/18/201603/02 Inactive Depo-Provera 150 mg/mL intramuscular suspension RxNorm: 1000 128 Milliliter(s) 1 Milliliter(s) IM 10/10/2016 06/04/2017 Inactive Tamiflu 75 mg capsule RxNorm: 146375 1 Capsule(s) PO BID 08/08/2016 0 08/12/2016 Inactive Levsin 0.125 mg tablet RxNorm: 3311134 1 Tablet(s) PO TID for fl ank pain 05/15/2016 10/17/2016 Inactive Bactrim DS 800 mg-160 mg tablet RxNorm: 698808 1 Tablet(s) PO BID 0 12/23/2015 01/01/2016 Inactive mupirocin 2 % topical ointment RxNorm: 334138 Application TOP TID 0 12/23/2015 12/29/2015 Inactive Depo-Provera 150 mg/mL intramuscular suspension RxNorm: 1000 128 Milliliter(s) 1 Milliliter(s) IM 11/08/2015 10/09/2016 Inactive Xanax 0.25 mg tablet RxNorm: 444048 TAKE ONE-HALF TO ON E TABLET BY MOUTH NEEDED FOR ANXIETY 04/11/2015 05/10/2015 Inactive Generic For:X ANAX 0.25 MG TABLET 04/11/2015 2:54:57 PM Depo-Provera 150 mg/mL intramuscular suspension RxNorm: 1000 128 Milliliter(s) 1 Milliliter(s) IM 02/15/2015 11/07/2015 Inactive azithromycin 250 mg tablet RxNorm: 573972 2 Tablet(s) P O today, then one tablet on days 2 - 5 01/26/2015 12/22/2015 Inactive Medrol (Jhonathan) 4 mg tablets in a dose pack RxNorm: 813685 Tablet(s) P O 01/26/2015 12/22/2015 Inactive Depo-Provera 150 mg/mL intramuscular suspension RxNorm: 1000 128 1 Milliliter(s) IM 09/06/2014 02/15/2015 Inactive Xanax 0.25 mg tablet RxNorm: 123613 1/2 - 1 Tablet(s) PO as nee ded for anxiety 06/16/2014 04/12/2015 Inactive Zoloft 50 mg tablet RxNorm: 380678 1 Tablet(s) PO QD 06/16/201412/21 Inactive Flexeril [...] 2014 Inactive Xanax 0.25 mg tablet RxNorm: 365579 1/2 - 1 Tablet(s) PO as nee ded for anxiety 01/28/2014 06/15/2014 Inactive naproxen 500 mg tablet RxNorm: 377734 1 Tablet(s) PO BID 12/10/2013 0 01/08/2014 Inactive Zoloft 50 mg tablet RxNorm: 436741 1 Tablet(s) PO QD 12/10/201304/08 Inactive Xanax 0.25 mg tablet RxNorm: 417535 1/2 - 1 Tablet(s) PO as nee ded for anxiety 12/10/2013 01/27/2014 Inactive Xanax 0.25 mg tablet RxNorm: 461830 1 Tablet(s) PO Q8H 10/20/2013 Inactive Zoloft 50 mg tablet RxNorm: 972808 1/2 Tablet(s) PO x 6 days then on1 tablet daily 10/20/2013 11/18/2013 Inactive Loestrin Fe 20 (28) 1 mg-20 mcg tablet RxNorm: 3505640 1 Table t(s) PO QD 10/20/2013 05/03/2014 Inactive phenazopyridine 100 mg tablet RxNorm: 5039496 1 Tablet(s) PO Q8H 06/26/2013 Inactive Macrobid 100 mg capsule RxNorm: 044438 1 Capsule(s) PO BID 06/25/19 14 07/04/2013 Inactive phenazopyridine 100 mg tablet RxNorm: 9461132 1 Tablet(s) PO Q8H 06/24/2013 Inactive Macrobid 100 mg capsule RxNorm: 126549 1 Capsule(s) PO BID 07/25/19 11 08/02/2010 Inactive Apri 0.15 mg-30 mcg tablet RxNorm: 974875 1 Tablet(s) PO QD As directed. No Start Date 06/23/2013 Inactive omeprazole 40 mg capsule,delayed release RxNorm: 156723 1 Capsule(s) PO QD for stomach No Start Date 06/23/2013 Inactive naproxen 500 mg tablet RxNorm: 557793 1 Tablet(s) PO BID No Start D ate 06/15/2014 Inactive hydrocodone 10 mg-acetaminophen 325 mg tablet RxNorm: 227990 Tablet(s) PO as needed for pain No Start Date 12/22/2015 Inactive Zoloft 50 mg tablet RxNorm: 964565 1 Tablet(s) PO QD No Start Date Inactive hydrocodone 5 mg-acetaminophen 325 mg tablet RxNorm: 951680 1 Tablet(s) PO QID as needed for pain No Start Date 09/14/2013 Inactive Medication Administered No Medication Administered data Immunizations No Immunization data Results Observation Observation Code Item Item Code Result Date S ervice Location LIPASE 34913 LIPASE 14 IU/L 01/28/2014 Unknown COMPLETE BLOOD COUNT [id number] WBC 6.5 10e9/L 01/29/20 14 Unknown COMPLETE BLOOD COUNT [id number] RBC 4.54 10e12/L 2013 Unknown COMPLETE BLOOD COUNT [id number] HGB 12.1 g/dL 4 Unknown COMPLETE BLOOD COUNT [id number] HCT DET 38.0 % 4 Unknown COMPLETE BLOOD COUNT [id number] MCV 83.7 fL 4 Unknown COMPLETE BLOOD COUNT [id number] MCH 26.7 pg 4 Unknown COMPLETE BLOOD COUNT [id number] MCHC 31.8 g/dL 4 Unknown COMPLETE BLOOD COUNT [id number] PLT 218 10e9/L 01/29/20 14 Unknown COMPLETE BLOOD COUNT [id number] MPV 12.8 fL 4 Unknown COMPLETE BLOOD COUNT [id number] RACHNA % 56.5 % 4 Unknown COMPLETE BLOOD COUNT [id number] LY % 32.3 % 4 Unknown COMPLETE BLOOD COUNT [id number] MON % 8.6 % 4 Unknown COMPLETE BLOOD COUNT [id number] EOS % 2.1 % 4 Unknown COMPLETE BLOOD COUNT [id number] BASO % 0.5 % 4 Unknown COMPLETE BLOOD COUNT [id number] RDW 18.4 % 4 Unknown COMPLETE BLOOD COUNT [id number] ABS RACHNA 3.67 10e9/L 014 Unknown COMPLETE BLOOD COUNT [id number] ABS LYMPH 2.10 10e9/L 014 Unknown COMPLETE BLOOD COUNT [id number] ABS MONO 0.56 10e9/L 014 Unknown COMPLETE BLOOD COUNT [id number] ABS EOS 0.14 10e9/L 014 Unknown COMPLETE BLOOD COUNT [id number] ABS BASO 0.03 10e9/L 014 Unknown COMPLETE BLOOD COUNT [id number] RDW-SD 55.5 fL 4 Unknown COMPREHENSIVE METABOLIC 28892 AST 13 U/L 2013 Unknown COMPREHENSIVE METABOLIC 51172 ALT 7 IU/L 2013 Unknown COMPREHENSIVE METABOLIC 69790 BUN 8 MG/DL 2013 Unknown COMPREHENSIVE METABOLIC 94846 ALBUMIN 4.5 GM/DL 2013 Unknown COMPREHENSIVE METABOLIC 88763 CHLORIDE 106 MMOL/L 01/28 Unknown COMPREHENSIVE METABOLIC 03334 BILI TOT 0.4 MG/DL 2013 Unknown COMPREHENSIVE METABOLIC 74595 ALK PHOS 55 U/L 2013 Unknown COMPREHENSIVE METABOLIC 92570 SODIUM 138 MMOL/L 01/28 Unknown COMPREHENSIVE METABOLIC 14196 CREATININE 0.73 MG/DL 01/11 Unknown COMPREHENSIVE METABOLIC 31527 CALCIUM 9.9 MG/DL 2013 Unknown COMPREHENSIVE METABOLIC 63279 POTASSIUM 3.8 MMOL/L 01/28 Unknown COMPREHENSIVE METABOLIC 91792 PROT TOT 7.4 GM/DL 2013 Unknown COMPREHENSIVE METABOLIC 50400 Glucose 96 MG/DL 2013 Unknown COMPREHENSIVE METABOLIC 52894 BICARB 27 MMOL/L 2013 Unknown COMPREHENSIVE METABOLIC 33584 ANION GAP 5 MEQ/L 2013 Unknown AMYLASE 64710 AMYLASE 42 IU/L 01/28/2014 Unknown GFR CALC [id number] GFR AA >60 ML/MIN 01/28/2014 Unknown GFR CALC 1625589 GFR NON-AA >60 ML/MIN 01/28/2014 Unknown Procedures Procedure Codes Date URINALYSIS NONAUTO W/O SCOPE CPT-4: 61498 06/05/2019 CEFTRIAXONE SODIUM INJECTION CPT-4: J0696 06/05/2019 THER/PROPH/DIAG INJ SC/IM CPT-4: 35047 06/05/2019 URINE CULTURE/ COLONY COUNT CPT-4: 21764 06/05/2019 URINE CULTURE/ COLONY COUNT CPT-4: 14661 03/02/2019 THER/PROPH/DIAG INJ SC/IM CPT-4: 11421 02/16/2019 URINE CULTURE/ COLONY COUNT CPT-4: 28097 02/16/2019 URINALYSIS NONAUTO W/O SCOPE CPT-4: 29926 02/16/2019 URINE TEST CPT-4: 28143 02/16/2019 THER/PROPH/DIAG INJ SC/IM CPT-4: 56551 05/21/2018 THER/PROPH/DIAG INJ SC/IM CPT-4: 42336 11/26/2017 THER/PROPH/DIAG INJ SC/IM CPT-4: 00012 08/27/2017 THER/PROPH/DIAG INJ SC/IM CPT-4: 78699 06/06/2017 URINALYSIS NONAUTO W/O SCOPE CPT-4: 83489 06/06/2017 GC/CHLAMYDIA DNA (-[facility]) CPT-4: 83546|04629 8 URINE CULTURE/ COLONY COUNT CPT-4: 69066 06/06/2017 THER/PROPH/DIAG INJ SC/IM CPT-4: 18083 01/04/2017 SPECIMEN HANDLING OFFICE-LAB CPT-4: 67623 10/18/2016 THER/PROPH/DIAG INJ SC/IM CPT-4: 12449 10/12/2016 INFLUENZA ASSAY W/OPTIC CPT-4: 18830 08/08/2016 THER/PROPH/DIAG INJ SC/IM CPT-4: 02641 07/25/2016 THER/PROPH/DIAG INJ SC/IM CPT-4: 14337 05/03/2016 THER/PROPH/DIAG INJ SC/IM CPT-4: 85097 02/20/2016 URINE TEST CPT-4: 00858 02/20/2016 AEROBIC WOUND CULTURE & STN CPT-4: 39848 12/23/2015 THER/PROPH/DIAG INJ SC/IM CPT-4: 36138 11/07/2015 URINE TEST CPT-4: 09384 11/07/2015 THER/PROPH/DIAG INJ SC/IM CPT-4: 77442 08/01/2015 THER/PROPH/DIAG INJ SC/IM CPT-4: 25894 05/11/2015 THER/PROPH/DIAG INJ SC/IM CPT-4: 28684 02/16/2015 THER/PROPH/DIAG INJ SC/IM CPT-4: 39907 11/29/2014 THER/PROPH/DIAG INJ SC/IM CPT-4: 90710 09/09/2014 URINE TEST CPT-4: 70262 06/16/2014 THER/PROPH/DIAG INJ SC/IM CPT-4: 17752 06/16/2014 ROUTINE VENIPUNCTURE CPT-4: 32578 10/07/2013 COMPLETE CBC W/AUTO DIFF WBC CPT-4: 78518 10/07/2013 CHORIONIC GONADOTROPIN TEST CPT-4: 20002 10/07/2013 URINE TEST CPT-4: 08518 09/15/2013 URINALYSIS NONAUTO W/O SCOPE CPT-4: 79474 06/24/2013 URINE CULTURE/ COLONY COUNT CPT-4: 53969 06/24/2013 URINE TEST CPT-4: 64829 09/08/2010 URINALYSIS NONAUTO W/O SCOPE CPT-4: 70230 07/24/2010 URINE CULTURE/ COLONY COUNT CPT-4: 62621 07/24/2010 DESTRUCT PREMALG LESION (Cryosurgery) CPT-4: 15626 DESTRUCT PREMALG LES 2-14 CPT-4: 67173 03/08/2010 Vital Signs Date Vital 06/05/2019 Blood Pressure 1: 131/82 Code: 8480-6 BMI: 26.3 Code: 79733-9 Heart Rate 1: 109 bpm Height: 5'9" Respiratory Rate: 16 bpm SpO2: 99% Tempera ture: 36.7 (C) / 98.1 (F) Weight: 178 lbs 03/16/2019 Blood Pressure 1: 132/86 Code: 8480-6 Heart Rate 1: 73 bpm SpO2: 99% Temperature: 36.6 (C) / 97.9 (F) Weight: 158 lbs 03/03/2018 Blood Pressure 1: 120/88 Code: 8480-6 BMI: 23.9 Code: 09367-7 Heart Rate 1: 81 bpm Height: 5'9" Respiratory Rate: 18 bpm SpO2: 99% Tempera ture: 36.1 (C) / 97.0 (F) Weight: 162 lbs 10/18/2016 Blood Pressure 1: 108/ Code: 8480-6 BMI: 22.6 Code: 28677-9 Heart Rate 1: 100 bpm Height: 5'9" Respiratory Rate: 20 bpm SpO2: 98% Tempera ture: 37.1 (C) / 98.8 (F) Weight: 153 lbs 08/08/2016 Blood Pressure 1: 114/78 Code: 8480-6 Heart Rate 1: 102 bpm Respiratory Rate: 20 bpm SpO2: 98% Temperature: 36.4 (C) / 97.6 (F) We ight: 152 lbs 05/15/2016 Blood Pressure 1: 124/ Code: 8480-6 BMI: 23.2 Code: 79025-6 Heart Rate 1: 100 bpm Height: 5'9" Respiratory Rate: 20 bpm Temperature: 37 .0 (C) / 98.6 (F) Weight: 157 lbs 12/23/2015 Blood Pressure 1: 124 Code: 8480-6 BMI: 23.0 Code: 77343-3 Heart Rate 1: 92 bpm Height: 5'9" Respiratory Rate: 20 bpm SpO2: 97% Tempera ture: 36.9 (C) / 98.5 (F) Weight: 156 lbs 01/26/2015 Blood Pressure 1: 118/78 Code: 8480-6 BMI: 21.3 Code: 61660-5 Heart Rate 1: 100 bpm Height: 5'9" Respiratory Rate: 20 bpm SpO2: 97% Tempera ture: 36.6 (C) / 97.8 (F) Weight: 144 lbs 06/16/2014 Blood Pressure 1: 11878 Code: 8480-6 BMI: 23.5 Code: 25423-8 Heart Rate 1: 78 bpm Height: 5'9" Respiratory Rate: 18 bpm Temperature: 36 .1 (C) / 97.0 (F) Weight: 159 lbs 01/28/2014 Blood Pressure 1: 124/78 Code: 8480-6 BMI: 23.2 Code: 55434-6 Heart Rate 1: 88 bpm Height: 5'9" Respiratory Rate: 22 bpm Temperature: 36 .1 (C) / 97.0 (F) Weight: 157 lbs 12/10/2013 Blood Pressure 1: 124/ Code: 8480-6 BMI: 23.0 Code: 34334-4 Heart Rate 1: 82 bpm Height: 5'9" Respiratory Rate: 20 bpm Temperature: 36 .2 (C) / 97.2 (F) Weight: 156 lbs 10/20/2013 Blood Pressure 1: 118/82 Code: 8480-6 Heart Rate 1: 84 bpm Respiratory Rate: 22 bpm Temperature: 36.5 (C) / 97.7 (F) Weight: 150 lbs 10/07/2013 Blood Pressure 1: 120/80 Code: 8480-6 BMI: 22.2 Code: 43799-1 Heart Rate 1: 68 bpm Height: 5'9" Respiratory Rate: 22 bpm Temperature: 36 .2 (C) / 97.2 (F) Weight: 150 lbs 09/15/2013 Blood Pressure 1: 118/68 Code: 8480-6 BMI: 22.0 Code: 38915-2 Heart Rate 1: 78 bpm Height: 5'9" Respiratory Rate: 20 bpm Temperature: 36 .1 (C) / 97.0 (F) Weight: 149 lbs 06/24/2013 Blood Pressure 1: 112/74 Code: 8480-6 Heart Rate 1: 74 bpm Respiratory Rate: 20 bpm Temperature: 36.6 (C) / 97.9 (F) Weight: 150 lbs 03/05/2013 Blood Pressure 1: 126/88 Code: 8480-6 BMI: 23.5 Code: 73351-5 Heart Rate 1: 80 bpm Height: 5'9" Respiratory Rate: 20 bpm Temperature: 36 .6 (C) / 97.9 (F) Weight: 159 lbs 02/09/2013 Blood Pressure 1: 110/68 Code: 8480-6 BMI: 21.9 Code: 97294-5 Heart Rate 1: 74 bpm Height: 5'9" Respiratory Rate: 22 bpm Temperature: 36 .8 (C) / 98.2 (F) Weight: 148 lbs 09/08/2010 Blood Pressure 1: 124/90 Code: 8480-6 BMI: 21.4 Code: 89776-0 Height: 5'10" Temperature: 36.4 (C) / 97.6 [...] in female[ICD10: R10.2] Keyanna SNELLNELIDAAngelique KATTY Connors THADABNERMMIS CPT-4: 87445 06/05/2019 ([id number]) OFFICE/OUTPATIENT VISIT EST Diagnosis: Left wrist pain[ICD10: M25.532] Diagnosis: Swelling of left upper extremity[ICD10: M79.89] Keyanna PINTOLINE SergioMaria Teresa DUC [facility] CPT-4: 62132 03/16/2019 ([id number]) NURSE/OUTPATIENT VISIT EST Diagnosis: Urinary tract infection[ICD10: N39.0] Josefa Thadmamadou DE SOUZA SergioMaria Teresa THADABNERNENA [facility] CPT-4: 29592 03/02/2019 ([id number]) NURSE/OUTPATIENT VISIT EST Diagnosis: Irregular menstruation, unspecified[ICD10: N92.6] Diagnosis: Urinary tract infection[ICD10: N39.0] Josefa Thadmamadou Connors THADABNERNENA [facility] CPT-4: 19827 02/16/2019 ([id number]) NURSE/OUTPATIENT VISIT EST Diagnosis: Irregular menstruation, unspecified[ICD10: N92.6] Josefa Thadabnernena JOSEFA SergioMaria Teresa THADABNERNENA [facility] CPT-4: 86015 05/21/2018 ([id number]) OFFICE/OUTPATIENT VISIT EST Diagnosis: Irregular menstruation, unspecified[ICD10: N92.6] Diagnosis: Diseases of lips[ICD10: K13.0] Diagnosis: 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] Keyanna PINTOLINE SergioMaria Teresa [facility] CPT-4: 09638 03/03/2018 ([id number]) NURSE/OUTPATIENT VISIT EST Diagnosis: Irregular menstruation, unspecified[ICD10: N92.6] Josefa TALAMANTES DO [facility] CPT-4: 96098 11/26/2017 ([id number]) OFFICE/OUTPATIENT VISIT EST Diagnosis: Irregular menstruation, unspecified[ICD10: N92.6] Josefa TALAMANTES DO [facility] CPT-4: 39175 08/27/2017 ([id number]) OFFICE/OUTPATIENT VISIT EST Diagnosis: Dysuria[ICD10: R30.0] Diagnosis: Irregular menstruation, unspecified[ICD10: N92.6] Josefa TALAMANTES DO [facility] CPT-4: 74766 06/06/2017 ([id number]) OFFICE/OUTPATIENT VISIT EST Diagnosis: Irregular menstruation, unspecified[ICD10: N92.6] Josefa TALAMANTES DO [facility] CPT-4: 44406 01/04/2017 ([id number]) PREV VISIT EST AGE 18-39 Diagnosis: Encounter for general adult medical examination without abnormal findings[ICD10: Z00.00] Diagnosis: Encounter for gynecological examination (general) (routine) without abnormal findings[ICD10: Z01.419] Diagnosis: Gastro-esophageal reflux disease without esophagitis[ICD10: K21.9] Diagnosis: Dysphagia, pharyngeal phase[ICD10: R13.13] Josefa TALAMANTES DO [facility] CPT-4: 66016 10/18/2016 ([id number]) OFFICE/OUTPATIENT VISIT EST Diagnosis: Irregular menstruation, unspecified[ICD10: N92.6] Josefa TALAMANTES DO [facility] CPT-4: 03968 10/12/2016 ([id number]) OFFICE/OUTPATIENT VISIT EST Diagnosis: Fever, unspecified[ICD10: R50.9] Diagnosis: Influenza due to identified novel influenza A virus with other respiratory manifestations[ICD10: J09.X2] Catrina Bran JOSEFA TALAMANTES DO [facility] CPT-4: 65553 08/08/2016 ([id number]) OFFICE/OUTPATIENT VISIT EST Diagnosis: Irregular menstruation, unspecified[ICD10: N92.6] Josefa TALAMANTES DO [facility] CPT-4: 94030 07/25/2016 ([id number]) OFFICE/OUTPATIENT VISIT EST Diagnosis: Right upper quadrant pain[ICD10: R10.11] Diagnosis: Unspecified abdominal pain[ICD10: R10.9] Josefa TALAMANTES DO [facility] CPT-4: 84928 05/15/2016 ([id number]) OFFICE/OUTPATIENT VISIT EST Diagnosis: Irregular menstruation, unspecified[ICD10: N92.6] Josefa TALAMANTES DO [facility] CPT-4: 58584 05/03/2016 ([id number]) OFFICE/OUTPATIENT VISIT EST Diagnosis: Irregular menstruation, unspecified[ICD10: N92.6] Josefa TALAMANTES DO [facility] CPT-4: 07489 02/20/2016 OFFICE/OUTPATIENT VISIT EST Diagnosis: Cutaneous abscess of buttock[ICD10: L02.31] Kitty Caldera JOSEFA TALAMANTES DO [facility] CPT-4: 00151 12/23/2015 ([id number]) OFFICE/OUTPATIENT VISIT EST Diagnosis: Irregular menstruation, unspecified[ICD10: N92.6] Josefa TALAMANTES DO [facility] CPT-4: 39012 11/07/2015 ([id number]) OFFICE/OUTPATIENT VISIT EST Diagnosis: Irregular menstruation, unspecified[ICD10: N92.6] Josefa TALAMANTES DO [facility] CPT-4: 54776 08/01/2015 ([id number]) OFFICE/OUTPATIENT VISIT EST Diagnosis: Irregular menstruation, unspecified[ICD10: N92.6] Josefa TALAMANTES DO [facility] CPT-4: 26381 05/11/2015 ([id number]) OFFICE/OUTPATIENT VISIT EST Diagnosis: Irregular menstruation, unspecified[ICD10: N92.6] Josefa TALAMANTES DO [facility] CPT-4: 99132 02/16/2015 OFFICE/OUTPATIENT VISIT EST Diagnosis: SINUSITIS, ACUTE[ICD9: 461.9] Malgorzata VanBecelaere JOSEFA S. ORENDER DO [facility] CPT-4: 34512 01/26/2015 ([id number]) OFFICE/OUTPATIENT VISIT EST Diagnosis: IRREGULAR MENSTRUATION[ICD9: 626.4] Josefa TALAMANTES DO [facility] CPT-4: 47476 11/29/2014 ([id number]) OFFICE/OUTPATIENT VISIT EST Diagnosis: IRREGULAR MENSTRUATION[ICD9: 626.4] Josefa TALAMANTES [facility] CPT-4: 69183 09/09/2014 ([id number]) OFFICE/OUTPATIENT VISIT EST Diagnosis: IRREGULAR MENSTRUATION[ICD9: 626.4] Diagnosis: General counseling and advice on contraceptive management[ICD9: V25.09] Diagnosis: Anxiety and depression[ICD9: 300.4] Malgorzata TALAMANTES [facility] CPT-4: 33119 06/16/2014 OFFICE/OUTPATIENT VISIT EST Diagnosis: Right upper quadrant pain[ICD9: 789.01] Malgorzata WINCHESTERER [facility] CPT-4: 47514 01/28/2014 OFFICE/OUTPATIENT VISIT EST Diagnosis: Right upper quadrant pain[ICD9: 789.01] Malgorzata TALAMANTES [facility] CPT-4: 25460 12/10/2013 OFFICE/OUTPATIENT VISIT EST Diagnosis: Anxiety and depression[ICD9: 300.4] Malgorzata VillanuevaErinjuanjo ALANIZ SMaria Teresa TALAMANTES [facility] CPT-4: 60717 10/20/2013 OFFICE/OUTPATIENT VISIT EST Diagnosis: Menorrhagia[ICD9: 626.2] Malgorzata VillanuevaErinjuanjo RIVERA [facility] CPT-4: 02360 10/07/2013 OFFICE/OUTPATIENT VISIT EST Diagnosis: IRREGULAR MENSTRUATION[ICD9: 626.4] Malgorzata VillanuevaErinjuanjo TALAMANTES [facility] CPT-4: 90060 09/15/2013 OFFICE/OUTPATIENT VISIT EST Diagnosis: HEMATURIA NOS[ICD9: 599.70] Diagnosis: Abdominal discomfort in right upper quadrant[ICD9: 789.01] Malgorzata Hill. ANNABELLAER [facility] CPT-4: 07894 06/24/2013 ([id number]) OFFICE/OUTPATIENT VISIT EST Diagnosis: ABDOMINAL PAIN[ICD9: 789.00] Diagnosis: GERD[ICD9: 530.81] Josefa Winchesternena TALAMANTES DO [facility] CPT-4: 02017 03/05/2013 OFFICE/OUTPATIENT VISIT EST Diagnosis: General counseling and advice on contraceptive management[ICD9: V25.09] Diagnosis: IRREGULAR MENSTRUATION[ICD9: 626.4] Malgorzata TALAMANETS DO [facility] CPT-4: 26826 02/09/2013 ([id number]) OFFICE/OUTPATIENT VISIT GISEL TALAMANTES DO [facility] CPT-4: 43306 09/08/2010 ([id number]) OFFICE/OUTPATIENT VISIT GISEL TALAMNATES DO [facility] CPT-4: 18813 07/24/2010 Plan of Care Planned Activity Notes [...] ICD-10 : M25.532 03/16/2019 Appointment: Keyanna Mejía [address] [place], [place] [id number] [place] [address] Follow Up 03/16/2019 Appointment: Josefa Talamantes WPtel: [facility] [place] [address] 03/02/2019 Appointment: Josefa Talamantes WPtel: [address] [place], [place] [phone] [place] INJECTION 02/16/2019 Appointment: Josefa Talamantes WPtel: [address] [place], [place] [phone] [place] INJECTION 05/21/2018 Visit Diagnosis Plan: Diseases [...] performed in office and negative. patient to sheepskin pickler depo prescription and bring back to office for injection. had pap october of 2016. not due until 2019 or patient turns 29. ICD-9 : 626.4 ICD-10 : N92.6 03/03/2018 Appointment: Keyanna Mejía [address] [place], [place] [phone] [place] ACUTE ILLNESS 03/03/2018 Patient Education: Patient Medication Summary Completed 03/03/2018 Care Plan: US EXAM OF HEAD AND NECK thyroid LOIN C : 15858-3 Pending 03/03/2018 Appointment: Josefa Talamantes WPtel: [address] [place], [place] [phone] [place] CANCELED 02/27/2018 Appointment: Josefa Talamantes WPtel: [address] [place], [place] [phone] [place] INJECTION 11/26/2017 Patient Education: Patient Medication Summary Completed 11/26/2017 Appointment: Josefa Talamantes WPtel: [address] [place], [place] [phone] [place] INJECTION 08/27/2017 Patient Education: Patient Medication Summary Completed 08/27/2017 Appointment: Josefa Talamantes WPtel: [address] [place], [place] [phone] [place] INJECTION 06/06/2017 Patient Education: Patient Medication Summary Completed 06/06/2017 Appointment: Josefa Talamantes WPtel: [address] [place], [place] [phone] [place] INJECTION 01/04/2017 Patient Education: Patient Medication Summary Completed 01/04/2017 Appointment: Josefa Talamantes WPtel: [address] [place], [place] [phone] [place] 11/19 lm `sl 11/21 lm `sl NO SHOW 11/22/19 Patient Education: Patient Medication Summary Completed 10/22/2016 Care Plan: US EXAM OF HEAD AND NECK Thyroid Ultrasound LOIN C : 04970-7 Pending 10/22/2016 Visit Diagnosis Plan: Dysphagia, pharyngeal [...] : Z01.419 10/18/2016 Appointment: Josefa Talamantes WPtel: [address] [place], [place] [phone] [place] 10/17 lm `sl Annual Well Visit 10/18/2016 Patient Education: Patient Medication Summary Completed 10/18/2016 Appointment: Josfea Talamantes WPtel: [address] [place], [place] [phone] [place] INJECTION 10/12/2016 Patient Education: Patient Medication Summary Completed 10/12/2016 Visit Diagnosis Plan: Influenza due to i dentified novel influenza A virus with other respiratory manifestations Discussion: Flu A positive Rx as above Supportive care otherwise Contagious precautions discussed Notify kids' provider of exposure for their instructions ICD-9 : 488.02 ICD-10 : J09.X2 08/08/2016 Appointment: Catrina Bran [address] [place], [place] [phone] ACUTE ILLNESS 08/08/2016 Patient Education: Patient Medication Summary Completed 08/08/2016 Appointment: Josefa Talamantes WPtel: [address] [place], [place] [phone] [place] INJECTION 07/25/2016 Patient Education: Patient Medication Summary Completed 07/25/2016 Visit Plan: Finish abx and then recultur e 48hrs after completion Add levsin and zorvolex 05/15/2016 Appointment: Josefa Talamantes WPtel: [address] [place], [place] [phone] [place] 1/ lm `sl 05/15 confirmed~ Hospital Follow Up 0 05/15/2016 Patient Education: Patient Medication Summary Completed 05/15/2016 Appointment: Catrina Bran [address] [place], [place] [phone] 05/09 admitted into the hospital last night~ ACUTE ILLNESS 05/09/2016 Appointment: Josefa Talamantes WPtel: [address] [place], [place] [phone] [place] INJECTION 05/03/2016 Patient Education: Patient Medication Summary Completed 05/03/2016 Appointment: Josefa Talamantes WPtel: [address] [place], [place] [id number] [place] INJECTION 02/20/2016 Patient Education: Patient Medication [...] C&S obtained 12/23/2015 Appointment: Kitty Caldera WPtel: [address] [place], [place] [phone] [place] ACUTE ILLNESS 12/23/2015 Patient Education: Patient Medication Summary Completed 12/23/2015 Appointment: Josefa Talamantes WPtel: [address] [place], [place] [phone] [place] INJECTION 11/07/2015 Patient Education: Patient Medication Summary Completed 11/07/2015 Appointment: Josefa Talamantes WPtel: [address] [place], [place] [phone] [place] INJECTION 08/01/2015 Patient Education: Patient Medication Summary Completed 08/01/2015 Appointment: Josefa Talamantes WPtel: [address] [place], [place] [phone] [place] INJECTION 05/11/2015 Patient Education: Patient Medication Summary Completed 05/11/2015 Appointment: Malgorzata Islas WPtel: [address] [place], [place] [phone] [place] PAP 04/05/2015 Appointment: Josefa Talamantes WPtel: [address] [place], [place] [phone] [place] INJECTION 02/16/2015 Patient Education: Patient Medication Summary Completed 02/16/2015 Visit Plan: Daily nasal saline rinses Fl onase nasal spray and daily Zyrtec Medrol dose pack Z-jhonathan as directed 01/26/2015 Appointment: Malgorzata Islas WPtel: [address] [place], [place] [phone] [place] ACUTE ILLNESS 01/26/2015 Patient Education: Patient Medication Summary Completed 01/26/2015 Appointment: Josefa Talamantes WPtel: [address] [place], [place] [phone] [place] INJECTION 11/29/2014 Patient Education: Patient Medication Summary Completed 11/29/2014 Appointment: Josefa Talamantes WPtel: [address] [place], [place] [phone] [place] INJECTION 09/09/2014 Patient Education: Patient Medication Summary Completed 09/09/2014 Appointment: Malgorzata Islas WPtel: [address] [place] [address] FOLLOW UP 06/16/2014 Patient Education: Patient Medication Summary Completed 06/16/2014 Appointment: Malgorzata Islas WPtel: [address] [place], [place] [phone] 06/02/14 appointment scheduled 06/03/14 no showed PAP 06/03/2014 Appointment: Malgorzata Islas WPtel: [address] [place] [address] FOLLOW UP 01/28/2014 Patient Education: Patient Medication Summary Completed 01/28/2014 Care Plan: COMPREH[place] : [address]-4 Ordered 01/28/2014 Care Plan: AMYLASE Pending 4 Appointment: Malgorzata Islas WPtel: [address] [place] [address] FOLLOW UP 12/10/2013 Patient Education: Patient Medication Summary Completed 12/10/2013 Appointment: Malgorzata Islas WPtel: [address] [place], [place] [phone] 11/11 11/12 No Show FOLLOW UP 11/12/2013 Appointment: Malgorzata Islas WPtel: [address] [place] [address] FOLLOW UP 10/20/2013 Patient Education: Patient Medication Summary Completed 10/20/2013 Visit Plan: Quantitative Hcg and CBC tod ay. Transvaginal/Transabdominal sonogram stat Discussed with [facility] and [facility] 343 so will recheck in 1week as long as not worsening 10/07/2013 Appointment: Malgorzata Islas WPtel: [address] [place], [place] [phone] ACUTE ILLNESS 10/07/2013 Patient Education: Patient Medication Summary Completed 10/07/2013 Appointment: Malgorzata Islas WPtel: [address] [place], [place] [phone] [place] ACUTE ILLNESS 09/15/2013 Patient Education: Patient Medication Summary Completed 09/15/2013 Appointment: Malgorzata Islas WPtel: [address] [place], [place] [phone] [place] ACUTE ILLNESS 06/24/2013 Patient Education: Patient Medication Summary Completed 06/24/2013 Appointment: Malgorzata Islas WPtel: [address] [place], [place] [phone] [place] appt was scheduled today then patient no showed the visit ACUTE ILLNESS 05/21/2013 Visit Plan: Check CMP, CBC, UA CT scan o f abdomen Omeprazole 03/05/2013 Appointment: Josefa Talamantes WPtel: [address] [place], [place] [phone] ACUTE ILLNESS 03/05/2013 Appointment: Josefa Talamantes WPtel: [address] [place], [place] [phone] 03/02 canceled, wrong patient FOLLOW UP Patient Education: Patient Medication Summary Completed 03/05/2013 Appointment: Malgorzata Islas WPtel: [address] [place], [place] [phone] ACUTE ILLNESS 02/09/2013 Patient Education: Patient Medication Summary Completed 02/09/2013 Appointment: Justine Ortega WPtel: [address] [place], [place] [phone] [place] ACUTE ILLNESS 09/08/2010 Patient Education: Patient Medication Summary Completed 09/08/2010 Appointment: Justine Ortega WPtel: [address] [place], [place] [phone] [place] PAP 08/08/2010 Appointment: Justine Ortega WPtel: [address] [place], [place] [phone] [place] ACUTE ILLNESS 07/24/2010 Patient Education: Patient Medication Summary Completed 07/24/2010 Visit Plan: All warts shaved with 11-rekha de scalpel and then cryotherapy x3 Will followup with DNCB treatment 03/08/2010 Appointment: Josefa Talamantes WPtel: [address] [place], [place] [phone] ACUTE ILLNESS 03/08/2010 Patient Education: Patient Medication Summary Completed 03/08/2010 Appointment: Josefa Talamantes WPtel: [phone] [id number] PAP 09/14/2009 Referral: Roney Galloway WPtel: [address] [facility] 3 [id number] Referral Initiated Referral: Brian Floyd WPtel: [address] [id number] [place] Referral Initiated Referral: Referral Initiated Instructions [...] CBC today. Transvaginal/Transabdominal sonogram stat Discussed with [facility] and [facility] 343 so will recheck in [...]
--- OUTSIDE RECORDS SUMMARY | 2019-12-11 22:07 | XMS REPORT | CCD ---
Author Author Brenda Talamantes D.O. Organization [facility] Address [address] [place] [address] Phone Care Team Providers Care Lacing Operator Name Role Phone Josefa Talamantes D.O., PP Unavailable CCM Unavailable Summary Purpose Interface Exchange Insurance Providers Payer name Policy type / Coverage type Covered democrat ID Effective Begin Date Effective End Date [facility] [employer] [id number] Unknown Family History Family History data not found Social History Social History Element Codes Description Effective Dates Tobacco history SNOMED CT: 319430914 Unknown if ever smoked 01/12 Allergies, Adverse [...] Fill Instructions ibuprofen 800 mg tablet RxNorm: 112363 1 Tablet(s) Oral Q8H as needed 03/16/2019 06/05/2019 Inactive Cipro 500 mg tablet RxNorm: 230480 1 Tablet(s) Oral two times a day 03/04/2019 03/11/2019 Inactive Cipro 500 mg tablet RxNorm: 363234 1 Tablet(s) Oral two times a day 03/04/2019 03/03/2019 Inactive Macrobid 100 mg capsule RxNorm: 723490 1 Capsule(s) Oral two ti mes a day 02/16/2019 02/15/2019 Inactive Macrobid 100 mg capsule RxNorm: 508150 1 Capsule(s) Oral two ti mes a [...] 11/24/2017 Inactive Pepcid 40 mg tablet RxNorm: 067986 1 Tablet(s) PO QD 10/18/201603/02 Inactive Depo-Provera 150 mg/mL intramuscular suspension RxNorm: 1000 128 Milliliter(s) 1 Milliliter(s) IM 10/10/2016 06/04/2017 Inactive Tamiflu 75 mg capsule RxNorm: 061118 1 Capsule(s) PO BID 08/08/2016 0 08/12/2016 Inactive Levsin 0.125 mg tablet RxNorm: 5538950 1 Tablet(s) PO TID for fl ank pain 05/15/2016 10/17/2016 Inactive Bactrim DS 800 mg-160 mg tablet RxNorm: 265986 1 Tablet(s) PO BID 0 12/23/2015 01/01/2016 Inactive mupirocin 2 % topical ointment RxNorm: 393627 Application TOP TID 0 12/23/2015 12/29/2015 Inactive Depo-Provera 150 mg/mL intramuscular suspension RxNorm: 1000 128 Milliliter(s) 1 Milliliter(s) IM 11/08/2015 10/09/2016 Inactive Xanax 0.25 mg tablet RxNorm: 500332 TAKE ONE-HALF TO ON E TABLET BY MOUTH NEEDED FOR ANXIETY 04/11/2015 05/10/2015 Inactive Generic For:X ANAX 0.25 MG TABLET 04/11/2015 2:54:57 PM Depo-Provera 150 mg/mL intramuscular suspension RxNorm: 1000 128 Milliliter(s) 1 Milliliter(s) IM 02/15/2015 11/07/2015 Inactive azithromycin 250 mg tablet RxNorm: 958660 2 Tablet(s) P O today, then one tablet on days 2 - 5 01/26/2015 12/22/2015 Inactive Medrol (Jhonathan) 4 mg tablets in a dose pack RxNorm: 798161 Tablet(s) P O 01/26/2015 12/22/2015 Inactive Depo-Provera 150 mg/mL intramuscular suspension RxNorm: 1000 128 1 Milliliter(s) IM 09/06/2014 02/15/2015 Inactive Xanax 0.25 mg tablet RxNorm: 938298 1/2 - 1 Tablet(s) PO as nee ded for anxiety 06/16/2014 04/12/2015 Inactive Zoloft 50 mg tablet RxNorm: 110260 1 Tablet(s) PO QD 06/16/201412/21 Inactive Flexeril [...] 2014 Inactive Xanax 0.25 mg tablet RxNorm: 376137 1/2 - 1 Tablet(s) PO as nee ded for anxiety 01/28/2014 06/15/2014 Inactive naproxen 500 mg tablet RxNorm: 430973 1 Tablet(s) PO BID 12/10/2013 0 01/08/2014 Inactive Zoloft 50 mg tablet RxNorm: 152855 1 Tablet(s) PO QD 12/10/201304/08 Inactive Xanax 0.25 mg tablet RxNorm: 770909 1/2 - 1 Tablet(s) PO as nee ded for anxiety 12/10/2013 01/27/2014 Inactive Xanax 0.25 mg tablet RxNorm: 019070 1 Tablet(s) PO Q8H 10/20/2013 Inactive Zoloft 50 mg tablet RxNorm: 724742 1/2 Tablet(s) PO x 6 days then on1 tablet daily 10/20/2013 11/18/2013 Inactive Loestrin Fe 20 (28) 1 mg-20 mcg tablet RxNorm: 5347399 1 Table t(s) PO QD 10/20/2013 05/03/2014 Inactive phenazopyridine 100 mg tablet RxNorm: 7972759 1 Tablet(s) PO Q8H 06/26/2013 Inactive Macrobid 100 mg capsule RxNorm: 715577 1 Capsule(s) PO BID 06/25/19 14 07/04/2013 Inactive phenazopyridine 100 mg tablet RxNorm: 0426488 1 Tablet(s) PO Q8H 06/24/2013 Inactive Macrobid 100 mg capsule RxNorm: 024410 1 Capsule(s) PO BID 07/25/19 11 08/02/2010 Inactive Apri 0.15 mg-30 mcg tablet RxNorm: 086824 1 Tablet(s) PO QD As directed. No Start Date 06/23/2013 Inactive omeprazole 40 mg capsule,delayed release RxNorm: 711340 1 Capsule(s) PO QD for stomach No Start Date 06/23/2013 Inactive naproxen 500 mg tablet RxNorm: 519405 1 Tablet(s) PO BID No Start D ate 06/15/2014 Inactive hydrocodone 10 mg-acetaminophen 325 mg tablet RxNorm: 710594 Tablet(s) PO as needed for pain No Start Date 12/22/2015 Inactive Zoloft 50 mg tablet RxNorm: 185783 1 Tablet(s) PO QD No Start Date Inactive hydrocodone 5 mg-acetaminophen 325 mg tablet RxNorm: 803341 1 Tablet(s) PO QID as needed for pain No Start Date 09/14/2013 Inactive Medication Administered No Medication Administered data Immunizations No Immunization data Results Observation Observation Code Item Item Code Result Date S ervice Location LIPASE 56446 LIPASE 14 IU/L 01/28/2014 Unknown COMPLETE BLOOD COUNT 3419804 WBC 6.5 10e9/L 01/29/20 14 Unknown COMPLETE BLOOD COUNT [id number] RBC 4.54 10e12/L 2013 Unknown COMPLETE BLOOD COUNT [id number] HGB 12.1 g/dL 4 Unknown COMPLETE BLOOD COUNT [id number] HCT DET 38.0 % 4 Unknown COMPLETE BLOOD COUNT [id number] MCV 83.7 fL 4 Unknown COMPLETE BLOOD COUNT [id number] MCH 26.7 pg 4 Unknown COMPLETE BLOOD COUNT [id number] MCHC 31.8 g/dL 4 Unknown COMPLETE BLOOD COUNT [id number] PLT 218 10e9/L 01/29/20 14 Unknown COMPLETE BLOOD COUNT [id number] MPV 12.8 fL 4 Unknown COMPLETE BLOOD COUNT [id number] RACHNA % 56.5 % 4 Unknown COMPLETE BLOOD COUNT [id number] LY % 32.3 % 4 Unknown COMPLETE BLOOD COUNT [id number] MON % 8.6 % 4 Unknown COMPLETE BLOOD COUNT [id number] EOS % 2.1 % 4 Unknown COMPLETE BLOOD COUNT [id number] BASO % 0.5 % 4 Unknown COMPLETE BLOOD COUNT [id number] RDW 18.4 % 4 Unknown COMPLETE BLOOD COUNT [id number] ABS RACHNA 3.67 10e9/L 014 Unknown COMPLETE BLOOD COUNT [id number] ABS LYMPH 2.10 10e9/L 014 Unknown COMPLETE BLOOD COUNT [id number] ABS MONO 0.56 10e9/L 014 Unknown COMPLETE BLOOD COUNT [id number] ABS EOS 0.14 10e9/L 014 Unknown COMPLETE BLOOD COUNT [id number] ABS BASO 0.03 10e9/L 014 Unknown COMPLETE BLOOD COUNT [id number] RDW-SD 55.5 fL 4 Unknown COMPREHENSIVE METABOLIC 50347 AST 13 U/L 2013 Unknown COMPREHENSIVE METABOLIC 17904 ALT 7 IU/L 2013 Unknown COMPREHENSIVE METABOLIC 93580 BUN 8 MG/DL 2013 Unknown COMPREHENSIVE METABOLIC 46811 ALBUMIN 4.5 GM/DL 2013 Unknown COMPREHENSIVE METABOLIC 47359 CHLORIDE 106 MMOL/L 01/28 Unknown COMPREHENSIVE METABOLIC 31713 BILI TOT 0.4 MG/DL 2013 Unknown COMPREHENSIVE METABOLIC 67227 ALK PHOS 55 U/L 2013 Unknown COMPREHENSIVE METABOLIC 54365 SODIUM 138 MMOL/L 01/28 Unknown COMPREHENSIVE METABOLIC 42192 CREATININE 0.73 MG/DL 01/11 Unknown COMPREHENSIVE METABOLIC 65960 CALCIUM 9.9 MG/DL 2013 Unknown COMPREHENSIVE METABOLIC 10806 POTASSIUM 3.8 MMOL/L 01/28 Unknown COMPREHENSIVE METABOLIC 07724 PROT TOT 7.4 GM/DL 2013 Unknown COMPREHENSIVE METABOLIC 84225 Glucose 96 MG/DL 2013 Unknown COMPREHENSIVE METABOLIC 72739 BICARB 27 MMOL/L 2013 Unknown COMPREHENSIVE METABOLIC 97436 ANION GAP 5 MEQ/L 2013 Unknown AMYLASE 23246 AMYLASE 42 IU/L 01/28/2014 Unknown GFR CALC [id number] GFR AA >60 ML/MIN 01/28/2014 Unknown GFR CALC [id number] GFR NON-AA >60 ML/MIN 01/28/2014 Unknown Procedures Procedure Codes Date URINALYSIS NONAUTO W/O SCOPE CPT-4: 77206 06/05/2019 CEFTRIAXONE SODIUM INJECTION CPT-4: J0696 06/05/2019 THER/PROPH/DIAG INJ SC/IM CPT-4: 88651 06/05/2019 URINE CULTURE/ COLONY COUNT CPT-4: 19709 06/05/2019 URINE CULTURE/ COLONY COUNT CPT-4: 97231 03/02/2019 THER/PROPH/DIAG INJ SC/IM CPT-4: 11213 02/16/2019 URINE CULTURE/ COLONY COUNT CPT-4: 98037 02/16/2019 URINALYSIS NONAUTO W/O SCOPE CPT-4: 62709 02/16/2019 URINE TEST CPT-4: 31105 02/16/2019 THER/PROPH/DIAG INJ SC/IM CPT-4: 54520 05/21/2018 THER/PROPH/DIAG INJ SC/IM CPT-4: 02860 11/26/2017 THER/PROPH/DIAG INJ SC/IM CPT-4: 79215 08/27/2017 THER/PROPH/DIAG INJ SC/IM CPT-4: 12161 06/06/2017 URINALYSIS NONAUTO W/O SCOPE CPT-4: 03860 06/06/2017 GC/CHLAMYDIA DNA (-[facility]) CPT-4: 92660|34954 8 URINE CULTURE/ COLONY COUNT CPT-4: 07197 06/06/2017 THER/PROPH/DIAG INJ SC/IM CPT-4: 36508 01/04/2017 SPECIMEN HANDLING OFFICE-LAB CPT-4: 90380 10/18/2016 THER/PROPH/DIAG INJ SC/IM CPT-4: 42218 10/12/2016 INFLUENZA ASSAY W/OPTIC CPT-4: 11226 08/08/2016 THER/PROPH/DIAG INJ SC/IM CPT-4: 88600 07/25/2016 THER/PROPH/DIAG INJ SC/IM CPT-4: 51361 05/03/2016 THER/PROPH/DIAG INJ SC/IM CPT-4: 91420 02/20/2016 URINE TEST CPT-4: 65641 02/20/2016 AEROBIC WOUND CULTURE & STN CPT-4: 37603 12/23/2015 THER/PROPH/DIAG INJ SC/IM CPT-4: 83549 11/07/2015 URINE TEST CPT-4: 70732 11/07/2015 THER/PROPH/DIAG INJ SC/IM CPT-4: 20733 08/01/2015 THER/PROPH/DIAG INJ SC/IM CPT-4: 33307 05/11/2015 THER/PROPH/DIAG INJ SC/IM CPT-4: 87748 02/16/2015 THER/PROPH/DIAG INJ SC/IM CPT-4: 08242 11/29/2014 THER/PROPH/DIAG INJ SC/IM CPT-4: 03497 09/09/2014 URINE TEST CPT-4: 44057 06/16/2014 THER/PROPH/DIAG INJ SC/IM CPT-4: 73996 06/16/2014 ROUTINE VENIPUNCTURE CPT-4: 72269 10/07/2013 COMPLETE CBC W/AUTO DIFF WBC CPT-4: 96216 10/07/2013 CHORIONIC GONADOTROPIN TEST CPT-4: 59487 10/07/2013 URINE TEST CPT-4: 98805 09/15/2013 URINALYSIS NONAUTO W/O SCOPE CPT-4: 72577 06/24/2013 URINE CULTURE/ COLONY COUNT CPT-4: 22651 06/24/2013 URINE TEST CPT-4: 70222 09/08/2010 URINALYSIS NONAUTO W/O SCOPE CPT-4: 74358 07/24/2010 URINE CULTURE/ COLONY COUNT CPT-4: 30155 07/24/2010 DESTRUCT PREMALG LESION (Cryosurgery) CPT-4: 04927 DESTRUCT PREMALG LES 2-14 CPT-4: 00155 03/08/2010 Vital Signs Date Vital 06/05/2019 Blood Pressure 1: 131/82 Code: 8480-6 BMI: 26.3 Code: 20109-7 Heart Rate 1: 109 bpm Height: 5'9" Respiratory Rate: 16 bpm SpO2: 99% Tempera ture: 36.7 (C) / 98.1 (F) Weight: 178 lbs 03/16/2019 Blood Pressure 1: 132/86 Code: 8480-6 Heart Rate 1: 73 bpm SpO2: 99% Temperature: 36.6 (C) / 97.9 (F) Weight: 158 lbs 03/03/2018 Blood Pressure 1: 120/88 Code: 8480-6 BMI: 23.9 Code: 11621-9 Heart Rate 1: 81 bpm Height: 5'9" Respiratory Rate: 18 bpm SpO2: 99% Tempera ture: 36.1 (C) / 97.0 (F) Weight: 162 lbs 10/18/2016 Blood Pressure 1: 108/ Code: 8480-6 BMI: 22.6 Code: 33632-4 Heart Rate 1: 100 bpm Height: 5'9" Respiratory Rate: 20 bpm SpO2: 98% Tempera ture: 37.1 (C) / 98.8 (F) Weight: 153 lbs 08/08/2016 Blood Pressure 1: 114/78 Code: 8480-6 Heart Rate 1: 102 bpm Respiratory Rate: 20 bpm SpO2: 98% Temperature: 36.4 (C) / 97.6 (F) We ight: 152 lbs 05/15/2016 Blood Pressure 1: 124/ Code: 8480-6 BMI: 23.2 Code: 76495-0 Heart Rate 1: 100 bpm Height: 5'9" Respiratory Rate: 20 bpm Temperature: 37 .0 (C) / 98.6 (F) Weight: 157 lbs 12/23/2015 Blood Pressure 1: 124 Code: 8480-6 BMI: 23.0 Code: 95472-5 Heart Rate 1: 92 bpm Height: 5'9" Respiratory Rate: 20 bpm SpO2: 97% Tempera ture: 36.9 (C) / 98.5 (F) Weight: 156 lbs 01/26/2015 Blood Pressure 1: 118/78 Code: 8480-6 BMI: 21.3 Code: 39786-8 Heart Rate 1: 100 bpm Height: 5'9" Respiratory Rate: 20 bpm SpO2: 97% Tempera ture: 36.6 (C) / 97.8 (F) Weight: 144 lbs 06/16/2014 Blood Pressure 1: 11878 Code: 8480-6 BMI: 23.5 Code: 44487-4 Heart Rate 1: 78 bpm Height: 5'9" Respiratory Rate: 18 bpm Temperature: 36 .1 (C) / 97.0 (F) Weight: 159 lbs 01/28/2014 Blood Pressure 1: 124/78 Code: 8480-6 BMI: 23.2 Code: 30624-5 Heart Rate 1: 88 bpm Height: 5'9" Respiratory Rate: 22 bpm Temperature: 36 .1 (C) / 97.0 (F) Weight: 157 lbs 12/10/2013 Blood Pressure 1: 124/ Code: 8480-6 BMI: 23.0 Code: 38922-9 Heart Rate 1: 82 bpm Height: 5'9" Respiratory Rate: 20 bpm Temperature: 36 .2 (C) / 97.2 (F) Weight: 156 lbs 10/20/2013 Blood Pressure 1: 118/82 Code: 8480-6 Heart Rate 1: 84 bpm Respiratory Rate: 22 bpm Temperature: 36.5 (C) / 97.7 (F) Weight: 150 lbs 10/07/2013 Blood Pressure 1: 120/80 Code: 8480-6 BMI: 22.2 Code: 22598-8 Heart Rate 1: 68 bpm Height: 5'9" Respiratory Rate: 22 bpm Temperature: 36 .2 (C) / 97.2 (F) Weight: 150 lbs 09/15/2013 Blood Pressure 1: 118/68 Code: 8480-6 BMI: 22.0 Code: 15514-9 Heart Rate 1: 78 bpm Height: 5'9" Respiratory Rate: 20 bpm Temperature: 36 .1 (C) / 97.0 (F) Weight: 149 lbs 06/24/2013 Blood Pressure 1: 112/74 Code: 8480-6 Heart Rate 1: 74 bpm Respiratory Rate: 20 bpm Temperature: 36.6 (C) / 97.9 (F) Weight: 150 lbs 03/05/2013 Blood Pressure 1: 126/88 Code: 8480-6 BMI: 23.5 Code: 99038-9 Heart Rate 1: 80 bpm Height: 5'9" Respiratory Rate: 20 bpm Temperature: 36 .6 (C) / 97.9 (F) Weight: 159 lbs 02/09/2013 Blood Pressure 1: 110/68 Code: 8480-6 BMI: 21.9 Code: 39954-7 Heart Rate 1: 74 bpm Height: 5'9" Respiratory Rate: 22 bpm Temperature: 36 .8 (C) / 98.2 (F) Weight: 148 lbs 09/08/2010 Blood Pressure 1: 124/90 Code: 8480-6 BMI: 21.4 Code: 45580-6 Height: 5'10" Temperature: 36.4 (C) / 97.6 [...] in female[ICD10: R10.2] Keyanna SNELLNELIDAAngelique KATTY Connors THADABNERMercaux CPT-4: 29047 06/05/2019 ([id number]) OFFICE/OUTPATIENT VISIT EST Diagnosis: Left wrist pain[ICD10: M25.532] Diagnosis: Swelling of left upper extremity[ICD10: M79.89] Keyanna PINTOLINE SergioMaria Teresa DUC DFMSim CPT-4: 76632 03/16/2019 ([id number]) NURSE/OUTPATIENT VISIT EST Diagnosis: Urinary tract infection[ICD10: N39.0] Josefa Thadmamadou DE SOUZA SergioMaria Teresa THADABNERNENA DFMSim CPT-4: 31710 03/02/2019 ([id number]) NURSE/OUTPATIENT VISIT EST Diagnosis: Irregular menstruation, unspecified[ICD10: N92.6] Diagnosis: Urinary tract infection[ICD10: N39.0] Josefa Thadmamadou Connors THADABNERNENA DFMSim CPT-4: 78435 02/16/2019 ([id number]) NURSE/OUTPATIENT VISIT EST Diagnosis: Irregular menstruation, unspecified[ICD10: N92.6] Josefa Thadabnernena JOSEFA SergioMaria Teresa THADABNERNENA DFMSim CPT-4: 72142 05/21/2018 ([id number]) OFFICE/OUTPATIENT VISIT EST Diagnosis: Irregular menstruation, unspecified[ICD10: N92.6] Diagnosis: Diseases of lips[ICD10: K13.0] Diagnosis: 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] Keyanna PINTOLINE SergioMaria Teresa DUC DFMSim CPT-4: 91596 03/03/2018 ([id number]) NURSE/OUTPATIENT VISIT EST Diagnosis: Irregular menstruation, unspecified[ICD10: N92.6] [facility] CPT-4: 40866 11/26/2017 ([id number]) OFFICE/OUTPATIENT VISIT EST Diagnosis: Irregular menstruation, unspecified[ICD10: N92.6] [facility] CPT-4: 03236 08/27/2017 ([id number]) OFFICE/OUTPATIENT VISIT EST Diagnosis: Dysuria[ICD10: R30.0] Diagnosis: Irregular menstruation, unspecified[ICD10: N92.6] [facility] CPT-4: 16270 06/06/2017 ([id number]) OFFICE/OUTPATIENT VISIT EST Diagnosis: Irregular menstruation, unspecified[ICD10: N92.6] Josefa [facility] CPT-4: 35123 01/04/2017 ([id number]) PREV VISIT EST AGE 18-39 Diagnosis: Encounter for general adult medical examination without abnormal findings[ICD10: Z00.00] Diagnosis: Encounter for gynecological examination (general) (routine) without abnormal findings[ICD10: Z01.419] Diagnosis: Gastro-esophageal reflux disease without esophagitis[ICD10: K21.9] Diagnosis: Dysphagia, pharyngeal phase[ICD10: R13.13] Josefa [facility] CPT-4: 95060 10/18/2016 ([id number]) OFFICE/OUTPATIENT VISIT EST Diagnosis: Irregular menstruation, unspecified[ICD10: N92.6] Josefa [facility] CPT-4: 34086 10/12/2016 ([id number]) OFFICE/OUTPATIENT VISIT EST Diagnosis: Fever, unspecified[ICD10: R50.9] Diagnosis: Influenza due to identified novel influenza A virus with other respiratory manifestations[ICD10: J09.X2] Catrina Bran [facility] CPT-4: 47627 08/08/2016 ([id number]) OFFICE/OUTPATIENT VISIT EST Diagnosis: Irregular menstruation, unspecified[ICD10: N92.6] Josefa [facility] CPT-4: 91605 07/25/2016 ([id number]) OFFICE/OUTPATIENT VISIT EST Diagnosis: Right upper quadrant pain[ICD10: R10.11] Diagnosis: Unspecified abdominal pain[ICD10: R10.9] Josefa [facility] CPT-4: 09210 05/15/2016 ([id number]) OFFICE/OUTPATIENT VISIT EST Diagnosis: Irregular menstruation, unspecified[ICD10: N92.6] Josefa [facility] CPT-4: 66130 05/03/2016 ([id number]) OFFICE/OUTPATIENT VISIT EST Diagnosis: Irregular menstruation, unspecified[ICD10: N92.6] Josefa [facility] CPT-4: 39543 02/20/2016 OFFICE/OUTPATIENT VISIT EST Diagnosis: Cutaneous abscess of buttock[ICD10: L02.31] Kitty Caldera [facility] CPT-4: 17419 12/23/2015 ([id number]) OFFICE/OUTPATIENT VISIT EST Diagnosis: Irregular menstruation, unspecified[ICD10: N92.6] [facility] CPT-4: 06478 11/07/2015 ([id number]) OFFICE/OUTPATIENT VISIT EST Diagnosis: Irregular menstruation, unspecified[ICD10: N92.6] Josefa [facility] CPT-4: 22150 08/01/2015 ([id number]) OFFICE/OUTPATIENT VISIT EST Diagnosis: Irregular menstruation, unspecified[ICD10: N92.6] Josefa [facility] CPT-4: 33730 05/11/2015 ([id number]) OFFICE/OUTPATIENT VISIT EST Diagnosis: Irregular menstruation, unspecified[ICD10: N92.6] Josefa [facility] CPT-4: 06098 02/16/2015 OFFICE/OUTPATIENT VISIT EST Diagnosis: SINUSITIS, ACUTE[ICD9: 461.9] Malgorzata VanBecelaere [facility] CPT-4: 31296 01/26/2015 ([id number]) OFFICE/OUTPATIENT VISIT EST Diagnosis: IRREGULAR MENSTRUATION[ICD9: 626.4] Josefa [facility] CPT-4: 39546 11/29/2014 ([id number]) OFFICE/OUTPATIENT VISIT EST Diagnosis: IRREGULAR MENSTRUATION[ICD9: 626.4] Josefa [facility]ALAMANTES [facility] CPT-4: 43116 09/09/2014 ([id number]) OFFICE/OUTPATIENT VISIT EST Diagnosis: IRREGULAR MENSTRUATION[ICD9: 626.4] Diagnosis: General counseling and advice on contraceptive management[ICD9: V25.09] Diagnosis: Anxiety and depression[ICD9: 300.4] Malgorzata [facility]ALAMANTES [facility] CPT-4: 73503 06/16/2014 OFFICE/OUTPATIENT VISIT EST Diagnosis: Right upper quadrant pain[ICD9: 789.01] Malgorzata [facility] CPT-4: 23970 01/28/2014 OFFICE/OUTPATIENT VISIT EST Diagnosis: Right upper quadrant pain[ICD9: 789.01] Malgorzata TALAMANTES [facility] CPT-4: 70704 12/10/2013 OFFICE/OUTPATIENT VISIT EST Diagnosis: Anxiety and depression[ICD9: 300.4] Malgorzata VillanuevaErinjuanjo ALANIZ SMaria Teresa TALAMANTES [facility] CPT-4: 14656 10/20/2013 OFFICE/OUTPATIENT VISIT EST Diagnosis: Menorrhagia[ICD9: 626.2] Malgorzata VillanuevaErinjuanjo [facility] CPT-4: 64999 10/07/2013 OFFICE/OUTPATIENT VISIT EST Diagnosis: IRREGULAR MENSTRUATION[ICD9: 626.4] Malgorzata VillanuevaErinjuanjo [facility]ALAMANTES [facility] CPT-4: 39538 09/15/2013 OFFICE/OUTPATIENT VISIT EST Diagnosis: HEMATURIA NOS[ICD9: 599.70] Diagnosis: Abdominal discomfort in right upper quadrant[ICD9: 789.01] Malgorzata Hill. ANNABELLAER DFMSim CPT-4: 49400 06/24/2013 ([id number]) OFFICE/OUTPATIENT VISIT EST Diagnosis: ABDOMINAL PAIN[ICD9: 789.00] Diagnosis: GERD[ICD9: 530.81] Josefa Winchesternena TALAMANTES DO [facility] CPT-4: 35275 03/05/2013 OFFICE/OUTPATIENT VISIT EST Diagnosis: General counseling and advice on contraceptive management[ICD9: V25.09] Diagnosis: IRREGULAR MENSTRUATION[ICD9: 626.4] Malgorzata TAALMANTES DO [facility] CPT-4: 73806 02/09/2013 ([id number]) OFFICE/OUTPATIENT VISIT GISEL TALAMANTES DO [facility] CPT-4: 87632 09/08/2010 ([id number]) OFFICE/OUTPATIENT VISIT GISEL TALAMANTES DO [facility] CPT-4: 31278 07/24/2010 Plan of Care Planned Activity Notes [...] ICD-10 : M25.532 03/16/2019 Appointment: Keyanna Mejía [address] [place], [place] [id number] [place] [address] Follow Up 03/16/2019 Appointment: Josefa Talamantes WPtel: [facility] [place] [address] 03/02/2019 Appointment: Josefa Talamantes WPtel: [address] [place], [place] [phone] [place] INJECTION 02/16/2019 Appointment: Josefa Talamantes WPtel: [address] [place], [place] [phone] [place] INJECTION 05/21/2018 Visit Diagnosis Plan: Diseases [...] performed in office and negative. patient to cook pickled meat depo prescription and bring back to office for injection. had pap october of 2016. not due until 2019 or patient turns 29. ICD-9 : 626.4 ICD-10 : N92.6 03/03/2018 Appointment: Keyanna Mejía [address] [place] [phone] [place] ACUTE ILLNESS 03/03/2018 Patient Education: Patient Medication Summary Completed 03/03/2018 Care Plan: US EXAM OF HEAD AND NECK thyroid LOIN C : 27276-6 Pending 03/03/2018 Appointment: Josefa Talamantes WPtel: [address] [place], [place] [phone] [place] CANCELED 02/27/2018 Appointment: Josefa Talamantes WPtel: [address] [place], [place] [phone] [place] INJECTION 11/26/2017 Patient Education: Patient Medication Summary Completed 11/26/2017 Appointment: Josefa Talamantes WPtel: [address] [place], [place] [phone] [place] INJECTION 08/27/2017 Patient Education: Patient Medication Summary Completed 08/27/2017 Appointment: Josefa Talamantes WPtel: [address] [place] [phone] [place] INJECTION 06/06/2017 Patient Education: Patient Medication Summary Completed 06/06/2017 Appointment: Josefa Talamantes WPtel: [address] [place], [place] [phone] [place] INJECTION 01/04/2017 Patient Education: Patient Medication Summary Completed 01/04/2017 Appointment: Josefa Talamantes WPtel: [address] [place], [place] [phone] [place] 11/19 lm `sl 11/21 lm `sl NO SHOW 11/22/19 Patient Education: Patient Medication Summary Completed 10/22/2016 Care Plan: US EXAM OF HEAD AND NECK Thyroid Ultrasound LOIN C : 80679-0 Pending 10/22/2016 Visit Diagnosis Plan: Dysphagia, pharyngeal [...] : Z01.419 10/18/2016 Appointment: Josefa Talamantes WPtel: [address] [place], [place] [phone] [place] 10/17 lm `sl Annual Well Visit 10/18/2016 Patient Education: Patient Medication Summary Completed 10/18/2016 Appointment: Josefa Talamantes WPtel: [address] [place], [place] [phone] [place] INJECTION 10/12/2016 Patient Education: Patient Medication Summary Completed 10/12/2016 Visit Diagnosis Plan: Influenza due to i dentified novel influenza A virus with other respiratory manifestations Discussion: Flu A positive Rx as above Supportive care otherwise Contagious precautions discussed Notify kids' provider of exposure for their instructions ICD-9 : 488.02 ICD-10 : J09.X2 08/08/2016 Appointment: Catrina Bran [address] [place], [place] [id number] ACUTE ILLNESS 08/08/2016 Patient Education: Patient Medication Summary Completed 08/08/2016 Appointment: Josefa Talamantes WPtel: [address] [place], [place] [phone] [place] INJECTION 07/25/2016 Patient Education: Patient Medication Summary Completed 07/25/2016 Visit Plan: Finish abx and then recultur e 48hrs after completion Add levsin and zorvolex 05/15/2016 Appointment: Josefa Talamantes WPtel: [address] [place], [place] [phone] [place] 1/ lm `sl 05/15 confirmed~ Hospital Follow Up 0 05/15/2016 Patient Education: Patient Medication Summary Completed 05/15/2016 Appointment: Catrina Bran [address] [place], [place] [phone] 05/09 admitted into the hospital last night~ ACUTE ILLNESS 05/09/2016 Appointment: Josefa Talamantes WPtel: [address] [place], [place] [phone] [place] INJECTION 05/03/2016 Patient Education: Patient Medication Summary Completed 05/03/2016 Appointment: Josefa Talamantes WPtel: [address] [place], [place] [id number] [place] INJECTION 02/20/2016 Patient Education: Patient Medication [...] C&S obtained 12/23/2015 Appointment: Kitty Caldera WPtel: [address] [place], [place] [phone] [place] ACUTE ILLNESS 12/23/2015 Patient Education: Patient Medication Summary Completed 12/23/2015 Appointment: Josefa Talamantes WPtel: [address] [place], [place] [phone] [place] INJECTION 11/07/2015 Patient Education: Patient Medication Summary Completed 11/07/2015 Appointment: Josefa Talamantes WPtel: [address] [place], [place] [phone] [place] INJECTION 08/01/2015 Patient Education: Patient Medication Summary Completed 08/01/2015 Appointment: Josefa Talamantes WPtel: [address] [place], [place] [phone] [place] INJECTION 05/11/2015 Patient Education: Patient Medication Summary Completed 05/11/2015 Appointment: Malgorzata Islas WPtel: [address] [place], [place] [phone] [place] PAP 04/05/2015 Appointment: Josefa Talamantes WPtel: [address] [place], [place] [phone] [place] INJECTION 02/16/2015 Patient Education: Patient Medication Summary Completed 02/16/2015 Visit Plan: Daily nasal saline rinses Fl onase nasal spray and daily Zyrtec Medrol dose pack Z-jhonathan as directed 01/26/2015 Appointment: Malgorzata Islas WPtel: [address] [place], [place] [phone] [place] ACUTE ILLNESS 01/26/2015 Patient Education: Patient Medication Summary Completed 01/26/2015 Appointment: Josefa Talamantes WPtel: [address] [place], [place] [phone] [place] INJECTION 11/29/2014 Patient Education: Patient Medication Summary Completed 11/29/2014 Appointment: Josefa Talamantes WPtel: [address] [place], [place] [phone] [place] INJECTION 09/09/2014 Patient Education: Patient Medication Summary Completed 09/09/2014 Appointment: Malgorzata Islas WPtel: [address] [place] [address] FOLLOW UP 06/16/2014 Patient Education: Patient Medication Summary Completed 06/16/2014 Appointment: Malgorzata Islas WPtel: [address] [place], [place] [phone] 06/02/14 appointment scheduled 06/03/14 no showed PAP 06/03/2014 Appointment: Malgorzata Islas WPtel: [address] [place] [address] FOLLOW UP 01/28/2014 Patient Education: Patient Medication Summary Completed 01/28/2014 Care Plan: COMPREH[place] : [address]-8 Ordered 01/28/2014 Care Plan: AMYLASE Pending 4 Appointment: Malgorzata Islas WPtel: [address] [place] [address] FOLLOW UP 12/10/2013 Patient Education: Patient Medication Summary Completed 12/10/2013 Appointment: Malgorzata Islas WPtel: [address] [place], [place] [phone] 11/11 11/12 No Show FOLLOW UP 11/12/2013 Appointment: Malgorzata Islas WPtel: [address] [place] [address] FOLLOW UP 10/20/2013 Patient Education: Patient Medication Summary Completed 10/20/2013 Visit Plan: Quantitative Hcg and CBC tod ay. Transvaginal/Transabdominal sonogram stat Discussed with HIV CTS SPECIALIST and [facility] 343 so will recheck in 1week as long as not worsening 10/07/2013 Appointment: Malgorzata Islas WPtel: [address] [place], [place] [phone] ACUTE ILLNESS 10/07/2013 Patient Education: Patient Medication Summary Completed 10/07/2013 Appointment: Malgorzata Islas WPtel: [address] [place], [place] [phone] [place] ACUTE ILLNESS 09/15/2013 Patient Education: Patient Medication Summary Completed 09/15/2013 Appointment: Malgorzata Islas WPtel: [address] [place], [place] [phone] [place] ACUTE ILLNESS 06/24/2013 Patient Education: Patient Medication Summary Completed 06/24/2013 Appointment: Malgorzata Islas WPtel: [address] [place], [place] [phone] [place] appt was scheduled today then patient no showed the visit ACUTE ILLNESS 05/21/2013 Visit Plan: Check CMP, CBC, UA CT scan o f abdomen Omeprazole 03/05/2013 Appointment: Josefa Talamantes WPtel: [address] [place], [place] [phone] ACUTE ILLNESS 03/05/2013 Appointment: Josefa Talamantes WPtel: [address] [place], [place] [phone] 03/02 canceled, wrong patient FOLLOW UP Patient Education: Patient Medication Summary Completed 03/05/2013 Appointment: Malgorzata Islas WPtel: [address] [place], [place] [phone] ACUTE ILLNESS 02/09/2013 Patient Education: Patient Medication Summary Completed 02/09/2013 Appointment: Justine Ortega WPtel: [address] [place], [place] [phone] [place] ACUTE ILLNESS 09/08/2010 Patient Education: Patient Medication Summary Completed 09/08/2010 Appointment: Justine Ortega WPtel: [address] [place], [place] [phone] [place] PAP 08/08/2010 Appointment: Justine Ortega WPtel: [address] [place] [phone] [place] ACUTE ILLNESS 07/24/2010 Patient Education: Patient Medication Summary Completed 07/24/2010 Visit Plan: All warts shaved with 11-rekha de scalpel and then cryotherapy x3 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 [id number] [place] Referral Initiated Referral: Referral Initiated Instructions [...] CBC today. Transvaginal/Transabdominal sonogram stat Discussed with HIV CTS SPECIALIST and [facility] 343 so will recheck [...]
--- OUTSIDE RECORDS SUMMARY | 2019-12-11 22:07 | XMS REPORT | CCD ---
Author Author Brenda Talamantes D.O. Organization [facility] Address [address] [place] [address] Phone Care Team Providers Care Manager In Training Name Role Phone Josefa Talamantes D.O., PP Unavailable CCM Unavailable Summary Purpose Interface Exchange Insurance Providers Payer name Policy type / Coverage type Covered democrat ID Effective Begin Date Effective End Date [facility] [employer] [employer] Insurance [id number] Unknown Family History Family History data not found Social History Social History Element Codes Description Effective Dates Tobacco history SNOMED CT: 531502979 Unknown if ever smoked 01/12 Allergies, Adverse [...] Fill Instructions ibuprofen 800 mg tablet RxNorm: 772615 1 Tablet(s) Oral Q8H as needed 03/16/2019 06/05/2019 Inactive Cipro 500 mg tablet RxNorm: 255622 1 Tablet(s) Oral two times a day 03/04/2019 03/11/2019 Inactive Cipro 500 mg tablet RxNorm: 995839 1 Tablet(s) Oral two times a day 03/04/2019 03/03/2019 Inactive Macrobid 100 mg capsule RxNorm: 723717 1 Capsule(s) Oral two ti mes a day 02/16/2019 02/15/2019 Inactive Macrobid 100 mg capsule RxNorm: 877118 1 Capsule(s) Oral two ti mes a [...] 11/24/2017 Inactive Pepcid 40 mg tablet RxNorm: 146521 1 Tablet(s) PO QD 10/18/201603/02 Inactive Depo-Provera 150 mg/mL intramuscular suspension RxNorm: 1000 128 Milliliter(s) 1 Milliliter(s) IM 10/10/2016 06/04/2017 Inactive Tamiflu 75 mg capsule RxNorm: 711204 1 Capsule(s) PO BID 08/08/2016 0 08/12/2016 Inactive Levsin 0.125 mg tablet RxNorm: 6597711 1 Tablet(s) PO TID for fl ank pain 05/15/2016 10/17/2016 Inactive Bactrim DS 800 mg-160 mg tablet RxNorm: 353044 1 Tablet(s) PO BID 0 12/23/2015 01/01/2016 Inactive mupirocin 2 % topical ointment RxNorm: 230186 Application TOP TID 0 12/23/2015 12/29/2015 Inactive Depo-Provera 150 mg/mL intramuscular suspension RxNorm: 1000 128 Milliliter(s) 1 Milliliter(s) IM 11/08/2015 10/09/2016 Inactive Xanax 0.25 mg tablet RxNorm: 559133 TAKE ONE-HALF TO ON E TABLET BY MOUTH NEEDED FOR ANXIETY 04/11/2015 05/10/2015 Inactive Generic For:X ANAX 0.25 MG TABLET 04/11/2015 2:54:57 PM Depo-Provera 150 mg/mL intramuscular suspension RxNorm: 1000 128 Milliliter(s) 1 Milliliter(s) IM 02/15/2015 11/07/2015 Inactive azithromycin 250 mg tablet RxNorm: 521702 2 Tablet(s) P O today, then one tablet on days 2 - 5 01/26/2015 12/22/2015 Inactive Medrol (Jhonathan) 4 mg tablets in a dose pack RxNorm: 896550 Tablet(s) P O 01/26/2015 12/22/2015 Inactive Depo-Provera 150 mg/mL intramuscular suspension RxNorm: 1000 128 1 Milliliter(s) IM 09/06/2014 02/15/2015 Inactive Xanax 0.25 mg tablet RxNorm: 149476 1/2 - 1 Tablet(s) PO as nee ded for anxiety 06/16/2014 04/12/2015 Inactive Zoloft 50 mg tablet RxNorm: 583847 1 Tablet(s) PO QD 06/16/201412/21 Inactive Flexeril [...] 2014 Inactive Xanax 0.25 mg tablet RxNorm: 342351 1/2 - 1 Tablet(s) PO as nee ded for anxiety 01/28/2014 06/15/2014 Inactive naproxen 500 mg tablet RxNorm: 639965 1 Tablet(s) PO BID 12/10/2013 0 01/08/2014 Inactive Zoloft 50 mg tablet RxNorm: 176861 1 Tablet(s) PO QD 12/10/201304/08 Inactive Xanax 0.25 mg tablet RxNorm: 542333 1/2 - 1 Tablet(s) PO as nee ded for anxiety 12/10/2013 01/27/2014 Inactive Xanax 0.25 mg tablet RxNorm: 088452 1 Tablet(s) PO Q8H 10/20/2013 Inactive Zoloft 50 mg tablet RxNorm: 105752 1/2 Tablet(s) PO x 6 days then on1 tablet daily 10/20/2013 11/18/2013 Inactive Loestrin Fe 20 (28) 1 mg-20 mcg tablet RxNorm: 5753585 1 Table t(s) PO QD 10/20/2013 05/03/2014 Inactive phenazopyridine 100 mg tablet RxNorm: 7431129 1 Tablet(s) PO Q8H 06/26/2013 Inactive Macrobid 100 mg capsule RxNorm: 813959 1 Capsule(s) PO BID 06/25/19 14 07/04/2013 Inactive phenazopyridine 100 mg tablet RxNorm: 6760342 1 Tablet(s) PO Q8H 06/24/2013 Inactive Macrobid 100 mg capsule RxNorm: 155293 1 Capsule(s) PO BID 07/25/19 11 08/02/2010 Inactive Apri 0.15 mg-30 mcg tablet RxNorm: 410709 1 Tablet(s) PO QD As directed. No Start Date 06/23/2013 Inactive omeprazole 40 mg capsule,delayed release RxNorm: 119520 1 Capsule(s) PO QD for stomach No Start Date 06/23/2013 Inactive naproxen 500 mg tablet RxNorm: 346436 1 Tablet(s) PO BID No Start D ate 06/15/2014 Inactive hydrocodone 10 mg-acetaminophen 325 mg tablet RxNorm: 537045 Tablet(s) PO as needed for pain No Start Date 12/22/2015 Inactive Zoloft 50 mg tablet RxNorm: 873727 1 Tablet(s) PO QD No Start Date Inactive hydrocodone 5 mg-acetaminophen 325 mg tablet RxNorm: 945588 1 Tablet(s) PO QID as needed for pain No Start Date 09/14/2013 Inactive Medication Administered No Medication Administered data Immunizations No Immunization data Results Observation Observation Code Item Item Code Result Date S ervice Location LIPASE 40735 LIPASE 14 IU/L 01/28/2014 Unknown COMPLETE BLOOD COUNT [id number] WBC 6.5 10e9/L 01/29/20 14 Unknown COMPLETE BLOOD COUNT [id number] RBC 4.54 10e12/L 2013 Unknown COMPLETE BLOOD COUNT [id number] HGB 12.1 g/dL 4 Unknown COMPLETE BLOOD COUNT [id number] HCT DET 38.0 % 4 Unknown COMPLETE BLOOD COUNT 1361007 MCV 83.7 fL 4 Unknown COMPLETE BLOOD COUNT [id number] MCH 26.7 pg 4 Unknown COMPLETE BLOOD COUNT [id number] MCHC 31.8 g/dL 4 Unknown COMPLETE BLOOD COUNT [id number] PLT 218 10e9/L 01/29/20 14 Unknown COMPLETE BLOOD COUNT [id number] MPV 12.8 fL 4 Unknown COMPLETE BLOOD COUNT [id number] RACHNA % 56.5 % 4 Unknown COMPLETE BLOOD COUNT [id number] LY % 32.3 % 4 Unknown COMPLETE BLOOD COUNT [id number] MON % 8.6 % 4 Unknown COMPLETE BLOOD COUNT [id number] EOS % 2.1 % 4 Unknown COMPLETE BLOOD COUNT [id number] BASO % 0.5 % 4 Unknown COMPLETE BLOOD COUNT [id number] RDW 18.4 % 4 Unknown COMPLETE BLOOD COUNT [id number] ABS RACHNA 3.67 10e9/L 014 Unknown COMPLETE BLOOD COUNT [id number] ABS LYMPH 2.10 10e9/L 014 Unknown COMPLETE BLOOD COUNT [id number] ABS MONO 0.56 10e9/L 014 Unknown COMPLETE BLOOD COUNT [id number] ABS EOS 0.14 10e9/L 014 Unknown COMPLETE BLOOD COUNT [id number] ABS BASO 0.03 10e9/L 014 Unknown COMPLETE BLOOD COUNT [id number] RDW-SD 55.5 fL 4 Unknown COMPREHENSIVE METABOLIC 02370 AST 13 U/L 2013 Unknown COMPREHENSIVE METABOLIC 40184 ALT 7 IU/L 2013 Unknown COMPREHENSIVE METABOLIC 20246 BUN 8 MG/DL 2013 Unknown COMPREHENSIVE METABOLIC 73468 ALBUMIN 4.5 GM/DL 2013 Unknown COMPREHENSIVE METABOLIC 82320 CHLORIDE 106 MMOL/L 01/28 Unknown COMPREHENSIVE METABOLIC 73824 BILI TOT 0.4 MG/DL 2013 Unknown COMPREHENSIVE METABOLIC 61841 ALK PHOS 55 U/L 2013 Unknown COMPREHENSIVE METABOLIC 70026 SODIUM 138 MMOL/L 01/28 Unknown COMPREHENSIVE METABOLIC 61160 CREATININE 0.73 MG/DL 01/11 Unknown COMPREHENSIVE METABOLIC 86412 CALCIUM 9.9 MG/DL 2013 Unknown COMPREHENSIVE METABOLIC 07377 POTASSIUM 3.8 MMOL/L 01/28 Unknown COMPREHENSIVE METABOLIC 02817 PROT TOT 7.4 GM/DL 2013 Unknown COMPREHENSIVE METABOLIC 43351 Glucose 96 MG/DL 2013 Unknown COMPREHENSIVE METABOLIC 59335 BICARB 27 MMOL/L 2013 Unknown COMPREHENSIVE METABOLIC 55137 ANION GAP 5 MEQ/L 2013 Unknown AMYLASE 37748 AMYLASE 42 IU/L 01/28/2014 Unknown GFR CALC 5600937 GFR AA >60 ML/MIN 01/28/2014 Unknown GFR CALC [id number] GFR NON-AA >60 ML/MIN 01/28/2014 Unknown Procedures Procedure Codes Date URINALYSIS NONAUTO W/O SCOPE CPT-4: 80446 06/05/2019 CEFTRIAXONE SODIUM INJECTION CPT-4: J0696 06/05/2019 THER/PROPH/DIAG INJ SC/IM CPT-4: 33792 06/05/2019 URINE CULTURE/ COLONY COUNT CPT-4: 86061 06/05/2019 URINE CULTURE/ COLONY COUNT CPT-4: 24063 03/02/2019 THER/PROPH/DIAG INJ SC/IM CPT-4: 63576 02/16/2019 URINE CULTURE/ COLONY COUNT CPT-4: 95123 02/16/2019 URINALYSIS NONAUTO W/O SCOPE CPT-4: 46986 02/16/2019 URINE TEST CPT-4: 97174 02/16/2019 THER/PROPH/DIAG INJ SC/IM CPT-4: 33717 05/21/2018 THER/PROPH/DIAG INJ SC/IM CPT-4: 24707 11/26/2017 THER/PROPH/DIAG INJ SC/IM CPT-4: 39488 08/27/2017 THER/PROPH/DIAG INJ SC/IM CPT-4: 78187 06/06/2017 URINALYSIS NONAUTO W/O SCOPE CPT-4: 49376 06/06/2017 GC/CHLAMYDIA DNA (-[facility]) CPT-4: 47429|67300 8 URINE CULTURE/ COLONY COUNT CPT-4: 99995 06/06/2017 THER/PROPH/DIAG INJ SC/IM CPT-4: 43758 01/04/2017 SPECIMEN HANDLING OFFICE-LAB CPT-4: 30830 10/18/2016 THER/PROPH/DIAG INJ SC/IM CPT-4: 79152 10/12/2016 INFLUENZA ASSAY W/OPTIC CPT-4: 82683 08/08/2016 THER/PROPH/DIAG INJ SC/IM CPT-4: 98045 07/25/2016 THER/PROPH/DIAG INJ SC/IM CPT-4: 39178 05/03/2016 THER/PROPH/DIAG INJ SC/IM CPT-4: 31601 02/20/2016 URINE TEST CPT-4: 23390 02/20/2016 AEROBIC WOUND CULTURE & STN CPT-4: 41511 12/23/2015 THER/PROPH/DIAG INJ SC/IM CPT-4: 35778 11/07/2015 URINE TEST CPT-4: 23729 11/07/2015 THER/PROPH/DIAG INJ SC/IM CPT-4: 64814 08/01/2015 THER/PROPH/DIAG INJ SC/IM CPT-4: 97672 05/11/2015 THER/PROPH/DIAG INJ SC/IM CPT-4: 69283 02/16/2015 THER/PROPH/DIAG INJ SC/IM CPT-4: 55540 11/29/2014 THER/PROPH/DIAG INJ SC/IM CPT-4: 23517 09/09/2014 URINE TEST CPT-4: 35889 06/16/2014 THER/PROPH/DIAG INJ SC/IM CPT-4: 20308 06/16/2014 ROUTINE VENIPUNCTURE CPT-4: 70279 10/07/2013 COMPLETE CBC W/AUTO DIFF WBC CPT-4: 73803 10/07/2013 CHORIONIC GONADOTROPIN TEST CPT-4: 14636 10/07/2013 URINE TEST CPT-4: 08672 09/15/2013 URINALYSIS NONAUTO W/O SCOPE CPT-4: 04755 06/24/2013 URINE CULTURE/ COLONY COUNT CPT-4: 29976 06/24/2013 URINE TEST CPT-4: 92671 09/08/2010 URINALYSIS NONAUTO W/O SCOPE CPT-4: 38337 07/24/2010 URINE CULTURE/ COLONY COUNT CPT-4: 97126 07/24/2010 DESTRUCT PREMALG LESION (Cryosurgery) CPT-4: 84827 DESTRUCT PREMALG LES 2-14 CPT-4: 03711 03/08/2010 Vital Signs Date Vital 06/05/2019 Blood Pressure 1: 131/82 Code: 8480-6 BMI: 26.3 Code: 63087-9 Heart Rate 1: 109 bpm Height: 5'9" Respiratory Rate: 16 bpm SpO2: 99% Tempera ture: 36.7 (C) / 98.1 (F) Weight: 178 lbs 03/16/2019 Blood Pressure 1: 132/86 Code: 8480-6 Heart Rate 1: 73 bpm SpO2: 99% Temperature: 36.6 (C) / 97.9 (F) Weight: 158 lbs 03/03/2018 Blood Pressure 1: 120/88 Code: 8480-6 BMI: 23.9 Code: 98999-2 Heart Rate 1: 81 bpm Height: 5'9" Respiratory Rate: 18 bpm SpO2: 99% Tempera ture: 36.1 (C) / 97.0 (F) Weight: 162 lbs 10/18/2016 Blood Pressure 1: 108/ Code: 8480-6 BMI: 22.6 Code: 26986-6 Heart Rate 1: 100 bpm Height: 5'9" Respiratory Rate: 20 bpm SpO2: 98% Tempera ture: 37.1 (C) / 98.8 (F) Weight: 153 lbs 08/08/2016 Blood Pressure 1: 114/78 Code: 8480-6 Heart Rate 1: 102 bpm Respiratory Rate: 20 bpm SpO2: 98% Temperature: 36.4 (C) / 97.6 (F) We ight: 152 lbs 05/15/2016 Blood Pressure 1: 124/ Code: 8480-6 BMI: 23.2 Code: 60792-0 Heart Rate 1: 100 bpm Height: 5'9" Respiratory Rate: 20 bpm Temperature: 37 .0 (C) / 98.6 (F) Weight: 157 lbs 12/23/2015 Blood Pressure 1: 124 Code: 8480-6 BMI: 23.0 Code: 16467-7 Heart Rate 1: 92 bpm Height: 5'9" Respiratory Rate: 20 bpm SpO2: 97% Tempera ture: 36.9 (C) / 98.5 (F) Weight: 156 lbs 01/26/2015 Blood Pressure 1: 118/78 Code: 8480-6 BMI: 21.3 Code: 00331-9 Heart Rate 1: 100 bpm Height: 5'9" Respiratory Rate: 20 bpm SpO2: 97% Tempera ture: 36.6 (C) / 97.8 (F) Weight: 144 lbs 06/16/2014 Blood Pressure 1: 11878 Code: 8480-6 BMI: 23.5 Code: 14720-4 Heart Rate 1: 78 bpm Height: 5'9" Respiratory Rate: 18 bpm Temperature: 36 .1 (C) / 97.0 (F) Weight: 159 lbs 01/28/2014 Blood Pressure 1: 124/78 Code: 8480-6 BMI: 23.2 Code: 51897-4 Heart Rate 1: 88 bpm Height: 5'9" Respiratory Rate: 22 bpm Temperature: 36 .1 (C) / 97.0 (F) Weight: 157 lbs 12/10/2013 Blood Pressure 1: 124/ Code: 8480-6 BMI: 23.0 Code: 78492-6 Heart Rate 1: 82 bpm Height: 5'9" Respiratory Rate: 20 bpm Temperature: 36 .2 (C) / 97.2 (F) Weight: 156 lbs 10/20/2013 Blood Pressure 1: 118/82 Code: 8480-6 Heart Rate 1: 84 bpm Respiratory Rate: 22 bpm Temperature: 36.5 (C) / 97.7 (F) Weight: 150 lbs 10/07/2013 Blood Pressure 1: 120/80 Code: 8480-6 BMI: 22.2 Code: 33182-6 Heart Rate 1: 68 bpm Height: 5'9" Respiratory Rate: 22 bpm Temperature: 36 .2 (C) / 97.2 (F) Weight: 150 lbs 09/15/2013 Blood Pressure 1: 118/68 Code: 8480-6 BMI: 22.0 Code: 21727-1 Heart Rate 1: 78 bpm Height: 5'9" Respiratory Rate: 20 bpm Temperature: 36 .1 (C) / 97.0 (F) Weight: 149 lbs 06/24/2013 Blood Pressure 1: 112/74 Code: 8480-6 Heart Rate 1: 74 bpm Respiratory Rate: 20 bpm Temperature: 36.6 (C) / 97.9 (F) Weight: 150 lbs 03/05/2013 Blood Pressure 1: 126/88 Code: 8480-6 BMI: 23.5 Code: 76860-7 Heart Rate 1: 80 bpm Height: 5'9" Respiratory Rate: 20 bpm Temperature: 36 .6 (C) / 97.9 (F) Weight: 159 lbs 02/09/2013 Blood Pressure 1: 110/68 Code: 8480-6 BMI: 21.9 Code: 87151-5 Heart Rate 1: 74 bpm Height: 5'9" Respiratory Rate: 22 bpm Temperature: 36 .8 (C) / 98.2 (F) Weight: 148 lbs 09/08/2010 Blood Pressure 1: 124/90 Code: 8480-6 BMI: 21.4 Code: 48801-3 Height: 5'10" Temperature: 36.4 (C) / 97.6 [...] in female[ICD10: R10.2] Keyanna SNELLNELIDAAngelique KATTY Connors [employer] CPT-4: 57067 06/05/2019 ([id number]) OFFICE/OUTPATIENT VISIT EST Diagnosis: Left wrist pain[ICD10: M25.532] Diagnosis: Swelling of left upper extremity[ICD10: M79.89] Keyanna PINTOLINE SergioMaria Teresa DUC [facility] CPT-4: 89250 03/16/2019 ([id number]) NURSE/OUTPATIENT VISIT EST Diagnosis: Urinary tract infection[ICD10: N39.0] Josefa Thadmamadou DE SOUZA SergioMaria Teresa THADABNERNENA [facility] CPT-4: 11882 03/02/2019 ([id number]) NURSE/OUTPATIENT VISIT EST Diagnosis: Irregular menstruation, unspecified[ICD10: N92.6] Diagnosis: Urinary tract infection[ICD10: N39.0] Josefa Thadmamadou Connors THADABNERNENA [facility] CPT-4: 66719 02/16/2019 ([id number]) NURSE/OUTPATIENT VISIT EST Diagnosis: Irregular menstruation, unspecified[ICD10: N92.6] Josefa Thadabnernena JOSEFA SergioMaria Teersa THADABNERNENA [facility] CPT-4: 77751 05/21/2018 ([id number]) OFFICE/OUTPATIENT VISIT EST Diagnosis: Irregular menstruation, unspecified[ICD10: N92.6] Diagnosis: Diseases of lips[ICD10: K13.0] Diagnosis: 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] Keyanna PINTOLINE SergioMaria Teresa [employer] [facility] CPT-4: 75276 03/03/2018 ([id number]) NURSE/OUTPATIENT VISIT EST Diagnosis: Irregular menstruation, unspecified[ICD10: N92.6] Josefa [facility] CPT-4: 14938 11/26/2017 ([id number]) OFFICE/OUTPATIENT VISIT EST Diagnosis: Irregular menstruation, unspecified[ICD10: N92.6] Josefa [facility] CPT-4: 72250 08/27/2017 ([id number]) OFFICE/OUTPATIENT VISIT EST Diagnosis: Dysuria[ICD10: R30.0] Diagnosis: Irregular menstruation, unspecified[ICD10: N92.6] Josefa [facility] CPT-4: 75807 06/06/2017 ([id number]) OFFICE/OUTPATIENT VISIT EST Diagnosis: Irregular menstruation, unspecified[ICD10: N92.6] Josefa [facility] CPT-4: 24292 01/04/2017 ([id number]) PREV VISIT EST AGE 18-39 Diagnosis: Encounter for general adult medical examination without abnormal findings[ICD10: Z00.00] Diagnosis: Encounter for gynecological examination (general) (routine) without abnormal findings[ICD10: Z01.419] Diagnosis: Gastro-esophageal reflux disease without esophagitis[ICD10: K21.9] Diagnosis: Dysphagia, pharyngeal phase[ICD10: R13.13] Josefa [facility]ANTES [facility] CPT-4: 35464 10/18/2016 ([id number]) OFFICE/OUTPATIENT VISIT EST Diagnosis: Irregular menstruation, unspecified[ICD10: N92.6] Josefa [facility] CPT-4: 32397 10/12/2016 ([id number]) OFFICE/OUTPATIENT VISIT EST Diagnosis: Fever, unspecified[ICD10: R50.9] Diagnosis: Influenza due to identified novel influenza A virus with other respiratory manifestations[ICD10: J09.X2] Catrina Bran JOSEFA [facility] CPT-4: 78264 08/08/2016 ([id number]) OFFICE/OUTPATIENT VISIT EST Diagnosis: Irregular menstruation, unspecified[ICD10: N92.6] Josefa [facility] CPT-4: 49567 07/25/2016 ([id number]) OFFICE/OUTPATIENT VISIT EST Diagnosis: Right upper quadrant pain[ICD10: R10.11] Diagnosis: Unspecified abdominal pain[ICD10: R10.9] Josefa [facility]ANT[facility] CPT-4: 12541 05/15/2016 ([id number]) OFFICE/OUTPATIENT VISIT EST Diagnosis: Irregular menstruation, unspecified[ICD10: N92.6] Josefa [facility] CPT-4: 29112 05/03/2016 ([id number]) OFFICE/OUTPATIENT VISIT EST Diagnosis: Irregular menstruation, unspecified[ICD10: N92.6] Josefa [facility] CPT-4: 61127 02/20/2016 OFFICE/OUTPATIENT VISIT EST Diagnosis: Cutaneous abscess of buttock[ICD10: L02.31] Kitty Caldera JOSEFA [facility] CPT-4: 73205 12/23/2015 ([id number]) OFFICE/OUTPATIENT VISIT EST Diagnosis: Irregular menstruation, unspecified[ICD10: N92.6] Josefa [facility] CPT-4: 21677 11/07/2015 ([id number]) OFFICE/OUTPATIENT VISIT EST Diagnosis: Irregular menstruation, unspecified[ICD10: N92.6] Josefa [facility] CPT-4: 57327 08/01/2015 ([id number]) OFFICE/OUTPATIENT VISIT EST Diagnosis: Irregular menstruation, unspecified[ICD10: N92.6] Josefa [facility] CPT-4: 28448 05/11/2015 ([id number]) OFFICE/OUTPATIENT VISIT EST Diagnosis: Irregular menstruation, unspecified[ICD10: N92.6] Josefa [facility]ANT[facility] CPT-4: 87828 02/16/2015 OFFICE/OUTPATIENT VISIT EST Diagnosis: SINUSITIS, ACUTE[ICD9: 461.9] Malgorzata VanBecelaere JOSEFA S. ORENDER [facility] CPT-4: 68133 01/26/2015 ([id number]) OFFICE/OUTPATIENT VISIT EST Diagnosis: IRREGULAR MENSTRUATION[ICD9: 626.4] Josefa [facility]ES [facility] CPT-4: 31111 11/29/2014 ([id number]) OFFICE/OUTPATIENT VISIT EST Diagnosis: IRREGULAR MENSTRUATION[ICD9: 626.4] Josefa TALAMANTES [facility] CPT-4: 50494 09/09/2014 ([id number]) OFFICE/OUTPATIENT VISIT EST Diagnosis: IRREGULAR MENSTRUATION[ICD9: 626.4] Diagnosis: General counseling and advice on contraceptive management[ICD9: V25.09] Diagnosis: Anxiety and depression[ICD9: 300.4] Malgorzata TALAMANTES [facility] CPT-4: 74085 06/16/2014 OFFICE/OUTPATIENT VISIT EST Diagnosis: Right upper quadrant pain[ICD9: 789.01] Malgorzata WINCHESTERER [facility] CPT-4: 14598 01/28/2014 OFFICE/OUTPATIENT VISIT EST Diagnosis: Right upper quadrant pain[ICD9: 789.01] Malgorzata TALAMANTES [facility] CPT-4: 47293 12/10/2013 OFFICE/OUTPATIENT VISIT EST Diagnosis: Anxiety and depression[ICD9: 300.4] Malgorzata VillanuevaErinjuanjo ALANIZ SMaria Teresa TALAMANTES [facility] CPT-4: 10814 10/20/2013 OFFICE/OUTPATIENT VISIT EST Diagnosis: Menorrhagia[ICD9: 626.2] Malgorzata VillanuevaErinjuanjo RIVERA [facility] CPT-4: 73196 10/07/2013 OFFICE/OUTPATIENT VISIT EST Diagnosis: IRREGULAR MENSTRUATION[ICD9: 626.4] Malgorzata VillanuevaErinjuanjo TALAMANTES [facility] CPT-4: 57557 09/15/2013 OFFICE/OUTPATIENT VISIT EST Diagnosis: HEMATURIA NOS[ICD9: 599.70] Diagnosis: Abdominal discomfort in right upper quadrant[ICD9: 789.01] Malgorzata Hill. ANNABELLAER [facility] CPT-4: 91986 06/24/2013 ([id number]) OFFICE/OUTPATIENT VISIT EST Diagnosis: ABDOMINAL PAIN[ICD9: 789.00] Diagnosis: GERD[ICD9: 530.81] Josefa Winchesternena TALAMANTES DO [employer] CPT-4: 25473 03/05/2013 OFFICE/OUTPATIENT VISIT EST Diagnosis: General counseling and advice on contraceptive management[ICD9: V25.09] Diagnosis: IRREGULAR MENSTRUATION[ICD9: 626.4] Malgorzata TALAMANTES DO [employer] CPT-4: 40161 02/09/2013 ([id number]) OFFICE/OUTPATIENT VISIT GISEL TALAMANTES DO [employer] CPT-4: 24224 09/08/2010 ([id number]) OFFICE/OUTPATIENT VISIT GISEL TALAMANTES DO [employer] CPT-4: 61796 07/24/2010 Plan of Care Planned Activity Notes [...] : M25.532 03/16/2019 Appointment: Keyanna Mejía [address] [place], [place] [phone] [place] [address] Follow Up 03/16/2019 Appointment: Josefa Talamantes WPtel: [facility] [place] [address] 03/02/2019 Appointment: Josefa Talamantes WPtel: [address] [place], [place] [phone] [place] INJECTION 02/16/2019 Appointment: Josefa Talamantes WPtel: [address] [place], [place] [phone] [place] INJECTION 05/21/2018 Visit Diagnosis Plan: Nontoxic [...] performed in office and negative. 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 and bring back to [...] : K13.0 03/03/2018 Appointment: Keyanna Mejía [address] [place], [place] [phone] [place] ACUTE ILLNESS 03/03/2018 Patient Education: Patient Medication Summary Completed 03/03/2018 Care Plan: US EXAM OF HEAD AND NECK thyroid LOIN C : 18370-3 Pending 03/03/2018 Appointment: Josefa Talamantes WPtel: [address] [place], [place] [phone] [place] CANCELED 02/27/2018 Appointment: Josefa Talamantes WPtel: [address] [place], [place] [phone] [place] INJECTION 11/26/2017 Patient Education: Patient Medication Summary Completed 11/26/2017 Appointment: Josefa Talamantes WPtel: [address] [place], [place] [phone] [place] INJECTION 08/27/2017 Patient Education: Patient Medication Summary Completed 08/27/2017 Appointment: Josefa Talamantes WPtel: [address] [place], [place] [phone] [place] INJECTION 06/06/2017 Patient Education: Patient Medication Summary Completed 06/06/2017 Appointment: Josefa Talamantes WPtel: [address] [place], [place] [phone] [place] INJECTION 01/04/2017 Patient Education: Patient Medication Summary Completed 01/04/2017 Appointment: Josefa Talamantes WPtel: [address] [place], [place] [phone] [place] 11/19 lm `sl 11/21 lm `sl NO SHOW 11/22/19 Patient Education: Patient Medication Summary Completed 10/22/2016 Care Plan: US EXAM OF HEAD AND NECK Thyroid Ultrasound LOIN C : 54748-1 Pending 10/22/2016 Visit Diagnosis Plan: Gastro-esophageal reflux [...] : R13.13 10/18/2016 Appointment: Josefa Talamantes WPtel: [address] [place], [place] [phone] [place] 10/17 lm `sl Annual Well Visit 10/18/2016 Patient Education: Patient Medication Summary Completed 10/18/2016 Appointment: Josefa Talamantes WPtel: [address] [place] [phone] [place] INJECTION 10/12/2016 Patient Education: Patient Medication Summary Completed 10/12/2016 Visit Diagnosis Plan: Influenza due to i dentified novel influenza A virus with other respiratory manifestations Discussion: Flu A positive Rx as above Supportive care otherwise Contagious precautions discussed Notify kids' provider of exposure for their instructions ICD-9 : 488.02 ICD-10 : J09.X2 08/08/2016 Appointment: Catrina Bran [address] [place], [place] [phone] ACUTE ILLNESS 08/08/2016 Patient Education: Patient Medication Summary Completed 08/08/2016 Appointment: Josefa Talamantes WPtel: [address] [place], [place] [phone] [place] INJECTION 07/25/2016 Patient Education: Patient Medication Summary Completed 07/25/2016 Visit Plan: Finish abx and then recultur e 48hrs after completion Add levsin and zorvolex 05/15/2016 Appointment: Josefa Talamantes WPtel: [address] [place], [place] [phone] [place] 1/ lm `sl 05/15 confirmed~ Hospital Follow Up 0 05/15/2016 Patient Education: Patient Medication Summary Completed 05/15/2016 Appointment: Catrina Bran [address] [place], [place] [phone] 05/09 admitted into the hospital last night~ ACUTE ILLNESS 05/09/2016 Appointment: Josefa Talamantes WPtel: [address] [place], [place] [phone] [place] INJECTION 05/03/2016 Patient Education: Patient Medication Summary Completed 05/03/2016 Appointment: Josefa Talamantes WPtel: [address] [place], [place] [phone] [place] INJECTION 02/20/2016 Patient Education: Patient Medication [...] C&S obtained 12/23/2015 Appointment: Kitty Caldera WPtel: [address] [place], [place] [phone] [place] ACUTE ILLNESS 12/23/2015 Patient Education: Patient Medication Summary Completed 12/23/2015 Appointment: Josefa Talamantes WPtel: [address] [place], [place] [phone] [place] INJECTION 11/07/2015 Patient Education: Patient Medication Summary Completed 11/07/2015 Appointment: Josefa Talamantes WPtel: [address] [place], [place] [phone] [place] INJECTION 08/01/2015 Patient Education: Patient Medication Summary Completed 08/01/2015 Appointment: Josefa Talamantes WPtel: [address] [place], [place] [phone] [place] INJECTION 05/11/2015 Patient Education: Patient Medication Summary Completed 05/11/2015 Appointment: Malgorzata Islas WPtel: [address] [place], [place] [phone] [place] PAP 04/05/2015 Appointment: Josefa Talamantes WPtel: [address] [place], [place] [phone] [place] INJECTION 02/16/2015 Patient Education: Patient Medication Summary Completed 02/16/2015 Visit Plan: Daily nasal saline rinses Fl onase nasal spray and daily Zyrtec Medrol dose pack Z-jhonathan as directed 01/26/2015 Appointment: Malgorzata Islas WPtel: [address] [place], [place] [phone] [place] ACUTE ILLNESS 01/26/2015 Patient Education: Patient Medication Summary Completed 01/26/2015 Appointment: Josefa Talamantes WPtel: [address] [place], [place] [phone] [place] INJECTION 11/29/2014 Patient Education: Patient Medication Summary Completed 11/29/2014 Appointment: Josefa Talamantes WPtel: [address] [place], [place] [phone] [place] INJECTION 09/09/2014 Patient Education: Patient Medication Summary Completed 09/09/2014 Appointment: Malgorzata Islas WPtel: [address] [place] [address] FOLLOW UP 06/16/2014 Patient Education: Patient Medication Summary Completed 06/16/2014 Appointment: Malgorzata Islas WPtel: [address] [place], [place] [phone] 06/02/14 appointment scheduled 06/03/14 no showed PAP 06/03/2014 Appointment: Malgorzata Islas WPtel: [address] [place] [address] FOLLOW UP 01/28/2014 Patient Education: Patient Medication Summary Completed 01/28/2014 Care Plan: COMPREH[place] : [id number] Ordered 01/28/2014 Care Plan: AMYLASE Pending 4 Appointment: Malgorzata Islas WPtel: [address] [place] [address] FOLLOW UP 12/10/2013 Patient Education: Patient Medication Summary Completed 12/10/2013 Appointment: Malgorzata Islas WPtel: [address] [place], [place] [phone] 11/11 11/12 No Show FOLLOW UP 11/12/2013 Appointment: Malgorzata Islas WPtel: [address] [place] [address] FOLLOW UP 10/20/2013 Patient Education: Patient Medication Summary Completed 10/20/2013 Visit Plan: Quantitative Hcg and CBC tod ay. Transvaginal/Transabdominal sonogram stat Discussed with [employer] and [facility] 343 so will recheck in 1week as long as not worsening 10/07/2013 Appointment: Malgorzata Islas WPtel: [address] [place], [place] [phone] ACUTE ILLNESS 10/07/2013 Patient Education: Patient Medication Summary Completed 10/07/2013 Appointment: Malgorzata Islas WPtel: [address] [place], [place] [phone] [place] ACUTE ILLNESS 09/15/2013 Patient Education: Patient Medication Summary Completed 09/15/2013 Appointment: Malgorzata Islas WPtel: [address] [place], [place] [phone] [place] ACUTE ILLNESS 06/24/2013 Patient Education: Patient Medication Summary Completed 06/24/2013 Appointment: Malgorzata Islas WPtel: [address] [place], [place] [phone] [place] appt was scheduled today then patient no showed the visit ACUTE ILLNESS 05/21/2013 Visit Plan: Check CMP, CBC, UA CT scan o f abdomen Omeprazole 03/05/2013 Appointment: Josefa Talamantes WPtel: [address] [place], [place] [phone] ACUTE ILLNESS 03/05/2013 Appointment: Josefa Talamantes WPtel: [address] [place], [place] [phone] 03/02 canceled, wrong patient FOLLOW UP Patient Education: Patient Medication Summary Completed 03/05/2013 Appointment: Malgorzata Islas WPtel: [address] [place], [place] [phone] ACUTE ILLNESS 02/09/2013 Patient Education: Patient Medication Summary Completed 02/09/2013 Appointment: Justine Ortega WPtel: [address] [place], [place] [phone] [place] ACUTE ILLNESS 09/08/2010 Patient Education: Patient Medication Summary Completed 09/08/2010 Appointment: Justine Ortega WPtel: [address] [place], [place] [phone] [place] PAP 08/08/2010 Appointment: Justine Ortega WPtel: [address] [place], [place] [phone] [place] ACUTE ILLNESS 07/24/2010 Patient Education: Patient Medication Summary Completed 07/24/2010 Visit Plan: All warts shaved with 11-rekha de scalpel and then cryotherapy x3 Will followup with DNCB treatment 03/08/2010 Appointment: Josefa Talamantes WPtel: [address] [place], [place] [phone] ACUTE ILLNESS 03/08/2010 Patient Education: Patient Medication Summary Completed 03/08/2010 Appointment: Josefa Talamantes WPtel: [phone] [id number] PAP 09/14/2009 Referral: Roney Galloway WPtel: [address] [facility] 3 [id number] Referral Initiated Referral: Brian Floyd WPtel: [address] [id number] [place] Referral Initiated Referral: Referral Initiated Instructions [...] CBC today. Transvaginal/Transabdominal sonogram stat Discussed with [employer] and [facility] 343 so will recheck in [...]
--- NOTE | 2019-12-11 22:08 | ED GI ---
General Chief Complaint: Abdominal/GI Problems Stated Complaint: N/V 4-5 WKS PREG Nursing Triage Note: TO ED VIA POV AND AMBULATORY TO ROOM 5 WITH C/O N/V SINCE YESTERDAY AND UNABLE TO KEEP ANYTHING DOWN. STATES WITH LMP 10/26/19. Sepsis Screen: No Definite Risk Source of Information: Patient Exam Limitations: No Limitations History of Present Illness Date Seen by Provider: Dec 11, 2019 Time Seen by Provider: 21:20 Initial Comments This 29-year-old woman presents to the emergency room with complaints of nausea and vomiting since last night. She also had an episode of diarrhea. She estimates she is 5-6 weeks gestational age with a last menstrual period of October 25. She also reports occasional stabbing "kidney pain". She denies any fever or abdominal pain. Her medical providers are Dr. Gil and Dr. Talamantes. Allergies and Home Medications Allergies Coded Allergies: No Known Drug Allergies (Unverified , 10/27/12) Home Medications Cefdinir 300 Mg Capsule, 300 MG PO BID Prescribed by: ANALIA TALAMANTES on 05/10/16 1125 Cephalexin 500 Mg Capsule, 500 MG PO TID Prescribed by: CAROLE BERUMEN on 12/11/192242 Hydrocodone/Acetaminophen 1 Each Tablet, 1 TAB PO Q6H Prescribed by: ASHTYN JOYNER on 03/15/19 1605 Ibuprofen 800 Mg Tablet, 800 MG PO Q8H PRN for PAIN Prescribed by: ANALIA TALAMANTES on 05/10/16 112 Medroxyprogesterone Acetate 150 Mg/1 Ml Vial, 150 MG INJ EVERY 3 MONTHS, (Reported) Ondansetron 4 Mg Tab.rapdis, 4 MG SL Q4H PRN for NAUSEA/VOMITING Prescribed by: CAROLE BERUMEN on 12/11/192242 Promethazine HCl 25 Mg Supp.rect, 25 MG RC Q6H PRN for NAUSEA/VOMITING Prescribed by: CAROLE BERUMEN on 12/11/192242 Patient Home Medication List Home Medication List Reviewed: Yes Review of Systems Review of Systems Constitutional: no symptoms reported EENTM: No Symptoms Reported Respiratory: No Symptoms Reported Cardiovascular: No Symptoms Reported Gastrointestinal: See HPI Genitourinary: See HPI Musculoskeletal: no symptoms reported Skin: no symptoms reported Psychiatric/Neurological: No Symptoms Reported Endocrine: No Symptoms Reported Hematologic/Lymphatic: No Symptoms Reported Past Pgrmwyv-Hlyrzf-Poluze Hx Past Med/Social Hx: Reviewed Nursing Past Med/Soc Hx Patient Social History Alcohol Use: Denies Use Recreational Drug Use: No Type Used: Cigarettes Recent Foreign Travel: No Contact w/Someone Who Travel: No Recent Infectious Disease Expo: No Recent Hopitalizations: No Physical Abuse: No Sexual Abuse: No Mistreated: No Fear: No Seasonal Allergies Seasonal Allergies: No Past Medical History Surgeries: Yes (KIDNEY STONES) Adenoidectomy, Section, Gallbladder, Tonsillectomy Respiratory: No Cardiac: No Neurological: No : Yes Last Menstrual Period: Oct 26, 2019 Hx : 3 Reproductive Disorders: No Sexually Transmitted Disease: No Genitourinary: Yes Kidney Stones Gastrointestinal: No Musculoskeletal: No Endocrine: No Cancer: No Psychosocial: No Integumentary: No Blood Disorders: No Adverse Reaction/Blood Tranf: No Family Medical History Reviewed Nursing Family Hx Blood coagulation disorder 19 MOTHER Diabetes mellitus 19 MOTHER FH: liver cancer GRANDFATHER Physical Exam Vital Signs Vital Signs - First Documented 12/11/19 21:20 Temp 37.0 Pulse 76 Resp 16 B/P (MAP) 129/92 (104) Pulse Ox 96 O2 Delivery Room Air Capillary Refill : Less Than 3 Seconds Height/Weight/BMI Height: 5'9.00" Weight: 157lbs. 0.0oz. 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, no motor/sensory deficits, alert, normal mood/affect, oriented x 3 Skin: normal color, warm/dry Progress/Results/Core Measures Results/Orders Lab Results Laboratory Tests Test 12/11/19 21:28 12/11/19 21:32 Range/Units White Blood Count 13.6 H 4.3-11.0 10^3/uL Red Blood Count 4.80 4.35-5.85 10^6/uL Hemoglobin 14.9 11.5-16.0 G/DL Hematocrit 43 35-52 % Mean Corpuscular Volume 90 80-99 FL Mean Corpuscular Hemoglobin 31 25-34 PG Mean Corpuscular Hemoglobin Concent 35 32-36 G/DL Red Cell Distribution Width 13.9 10.0-14.5 % Platelet Count 230 130-400 10^3/uL Mean Platelet Volume 11.3 H 7.4-10.4 FL Neutrophils (%) (Auto) 78 H 42-75 % Lymphocytes (%) (Auto) 15 12-44 % Monocytes (%) (Auto) 7 0-12 % Eosinophils (%) (Auto) 0 0-10 % Basophils (%) (Auto) 0 0-10 % Neutrophils # (Auto) 10.6 H 1.8-7.8 X 10^3 Lymphocytes # (Auto) 2.0 1.0-4.0 X 10^3 Monocytes # (Auto) 1.0 0.0-1.0 X 10^3 Eosinophils # (Auto) 0.0 0.0-0.3 10^3/uL Basophils # (Auto) 0.0 0.0-0.1 10^3/uL Sodium Level 139 135-145 MMOL/L Potassium Level 4.0 3.6-5.0 MMOL/L Chloride Level 106 98-107 MMOL/L Carbon Dioxide Level 19 L 21-32 MMOL/L Anion Gap 14 5-14 MMOL/L Blood Urea Nitrogen 10 7-18 MG/DL Creatinine 0.66 0.60-1.30 MG/DL Estimat Glomerular Filtration Rate > 60 BUN/Creatinine Ratio 15 Glucose Level 106 H 70-105 MG/DL Calcium Level 10.2 H 8.5-10.1 MG/DL Corrected Calcium 8.5-10.1 MG/DL Magnesium Level 2.6 H 1.6-2.4 MG/DL Total Bilirubin 0.8 0.1-1.0 MG/DL Aspartate Amino Transf (AST/SGOT) 20 5-34 U/L Alanine Aminotransferase (ALT/SGPT) 31 0-55 U/L Alkaline Phosphatase 58 40-136 U/L Total Protein 7.9 6.4-8.2 GM/DL Albumin 4.7 H 3.2-4.5 GM/DL Serum Test, Qualitative POSITIVE NEGATIVE Urine Color YELLOW Urine Clarity CLEAR Urine pH 6.5 5-9 Urine Specific [employer] 1.025 H 1.016-1.022 Urine Protein 1+ H NEGATIVE Urine Glucose (UA) NEGATIVE NEGATIVE Urine Ketones 2+ H NEGATIVE Urine Nitrite POSITIVE H NEGATIVE Urine Bilirubin NEGATIVE NEGATIVE Urine Urobilinogen 0.2 < = 1.0 MG/DL Urine Leukocyte Esterase 1+ H NEGATIVE Urine RBC (Auto) TRACE-I NEGATIVE Urine RBC 2-5 H /HPF Urine WBC 25-50 H /HPF Urine Squamous Epithelial Cells 10-25 H /HPF Urine Crystals NONE /LPF Urine Bacteria MODERATE H /HPF Urine Casts NONE /LPF Urine Mucus MODERATE H /LPF Urine Culture Indicated YES My Orders Orders - CAROLE GOODEN MD Promethazine Injection (Phenergan Injec (12/11/19 21:30) Ed Iv/Invasive Line Start (12/11/19 21:27) Lactated Ringers (Lr 1000 Ml Iv Solution (12/11/19 21:27) Cbc With Automated Diff (12/11/19 21:28) Comprehensive Metabolic Panel (12/11/19 21:28) Hcg,Qualitative Serum (12/11/19 21:28) Magnesium (12/11/19 21:28) Ua Culture If Indicated (12/11/19 21:28) Urine Culture (12/11/19 21:32) Ceftriaxone For Iv Use (Rocephin For I (12/11/19 22:00) Ondansetron Injection (Zofran Injectio (12/11/19 22:45) Rx-Ondansetron Po (Rx-Zofran Po) (12/11/19 22:47) Medications Given in ED Current Medications Medications Dose Ordered Sig/Joel Route Start Time Stop Time Status Last Admin Dose Admin Ceftriaxone Sodium 1000 mg/ Sterile Water 10 ml @ 200 mls/hr ONCE ONCE IV 12/11/19 22:00 12/11/19 22:02 DC 12/11/19 22:18 200 MLS/HR Lactated Ringer's 1,000 ml @ 0 mls/hr Q0M ONCE IV 12/11/19 21:27 12/11/19 21:29 DC 12/11/19 21:36 999 MLS/HR Ondansetron HCl 8 mg ONCE ONCE IVP 12/11/19 22:45 12/11/19 22:46 DC 12/11/19 22:44 8 MG Promethazine HCl 25 mg ONCE ONCE IVP 12/11/19 21:30 12/11/19 21:31 DC 12/11/19 21:36 25 MG Vital Signs/I&O 12/11/19 12/11/19 21:20 22:58 Temp 37.0 37.0 Pulse 76 70 Resp 16 16 B/P (MAP) 129/92 (104) 125/92 (104) Pulse Ox 96 97 O2 Delivery Room Air Room Air 12/12/19 00:00 Intake Total 1010 ml Balance 1010 ml Blood Pressure Mean: 104 Progress Progress Note #1: Time: 22:07 Progress Note Patient is receiving Phenergan 25 mg in 1 L of LR. She was also found to have urinary tract infection by urinalysis. Rocephin 1 g IV has been ordered. Progress Note #2: Progress Note Refractory nausea was treated with Zofran. She has used Zofran with her prior pregnancies. Departure Impression Primary Impression: Nausea and vomiting during Additional Impression: Urinary tract infection Qualified Codes: N39.0 - Urinary tract infection, site not specified Disposition: HOME, SELF-CARE Condition: Improved Departure-Patient Inst. Decision time for Depature: 22:38 Referrals: ANALIA TALAMANTES DO (PCP/Family) Primary Care Physician Patient Instructions: Nausea and Vomiting of (DC) Add. Discharge Instructions: Drink plenty of clear liquids. Eat small quantities of bland food frequently throughout the day. Use of Unisom (doxylamine) at night can help with nausea all the next day. It is safe with and can be purchased [id number]. Use Phenergan suppositories as prescribed for primary control of nausea and vomiting. Use Zofran as prescribed as a backup form of nausea control. Please contact Dr. Gil as soon as possible to discuss further management of your nausea and vomiting. Start your antibiotic tomorrow evening for treatment of urinary tract infection. Review urine culture with Dr. Gil on Saturday. Return to care if you have worsening symptoms. All discharge instructions reviewed with patient and/or family. Voiced understanding. Scripts Cephalexin (Keflex) 500 Mg Capsule 500 MG PO TID, #20 CAP Prov: CAROLE GOODEN MD 12/11/19 Ondansetron (Ondansetron Odt) 4 Mg Tab.rapdis 4 MG SL Q4H PRN for NAUSEA/VOMITING, #20 TAB Prov: CAROLE GOODEN MD 12/11/19 Promethazine HCl (Promethazine Suppository) 25 Mg Supp.rect 25 MG RC Q6H PRN for NAUSEA/VOMITING, #20 SUPP.RECT Prov: CAROLE GOODEN MD 12/11/19 Copy Copies To 1: KATHIE GIL MD Copies To 2: ANALIA TALAMANTES JOSHUA T MD Dec 11, 2019 22:08
--- OUTSIDE RECORDS SUMMARY | 2019-12-11 22:08 | XMS REPORT | CCD ---
Author Author Brenda Talamantes D.O. Organization JOSEFA TALAMANTES DO [facility] Address [address] [place] [address] Phone Care Team Providers Care Instrument Room Technician Name Role Phone Josefa Talamantes D.O., PP Unavailable CCM Unavailable Summary Purpose Interface Exchange Insurance Providers Payer name Policy type / Coverage type Covered alliance party ID Effective Begin Date Effective End Date AETNA [facility] [employer] Insurance [id number] Unknown Family History Family History data not found Social History Social History Element Codes Description Effective Dates Tobacco history SNOMED CT: 809296340 Unknown if ever smoked 01/12 Allergies, Adverse [...] Fill Instructions ibuprofen 800 mg tablet RxNorm: 678082 1 Tablet(s) Oral Q8H as needed 03/16/2019 06/05/2019 Inactive Cipro 500 mg tablet RxNorm: 662686 1 Tablet(s) Oral two times a day 03/04/2019 03/11/2019 Inactive Cipro 500 mg tablet RxNorm: 778149 1 Tablet(s) Oral two times a day 03/04/2019 03/03/2019 Inactive Macrobid 100 mg capsule RxNorm: 667267 1 Capsule(s) Oral two ti mes a day 02/16/2019 02/15/2019 Inactive Macrobid 100 mg capsule RxNorm: 659181 1 Capsule(s) Oral two ti mes a [...] 11/24/2017 Inactive Pepcid 40 mg tablet RxNorm: 722934 1 Tablet(s) PO QD 10/18/201603/02 Inactive Depo-Provera 150 mg/mL intramuscular suspension RxNorm: 1000 128 Milliliter(s) 1 Milliliter(s) IM 10/10/2016 06/04/2017 Inactive Tamiflu 75 mg capsule RxNorm: 964980 1 Capsule(s) PO BID 08/08/2016 0 08/12/2016 Inactive Levsin 0.125 mg tablet RxNorm: 2127226 1 Tablet(s) PO TID for fl ank pain 05/15/2016 10/17/2016 Inactive Bactrim DS 800 mg-160 mg tablet RxNorm: 424907 1 Tablet(s) PO BID 0 12/23/2015 01/01/2016 Inactive mupirocin 2 % topical ointment RxNorm: 693529 Application TOP TID 0 12/23/2015 12/29/2015 Inactive Depo-Provera 150 mg/mL intramuscular suspension RxNorm: 1000 128 Milliliter(s) 1 Milliliter(s) IM 11/08/2015 10/09/2016 Inactive Xanax 0.25 mg tablet RxNorm: 121832 TAKE ONE-HALF TO ON E TABLET BY MOUTH NEEDED FOR ANXIETY 04/11/2015 05/10/2015 Inactive Generic For:X ANAX 0.25 MG TABLET 04/11/2015 2:54:57 PM Depo-Provera 150 mg/mL intramuscular suspension RxNorm: 1000 128 Milliliter(s) 1 Milliliter(s) IM 02/15/2015 11/07/2015 Inactive azithromycin 250 mg tablet RxNorm: 455918 2 Tablet(s) P O today, then one tablet on days 2 - 5 01/26/2015 12/22/2015 Inactive Medrol (Jhonathan) 4 mg tablets in a dose pack RxNorm: 996605 Tablet(s) P O 01/26/2015 12/22/2015 Inactive Depo-Provera 150 mg/mL intramuscular suspension RxNorm: 1000 128 1 Milliliter(s) IM 09/06/2014 02/15/2015 Inactive Xanax 0.25 mg tablet RxNorm: 622564 1/2 - 1 Tablet(s) PO as nee ded for anxiety 06/16/2014 04/12/2015 Inactive Zoloft 50 mg tablet RxNorm: 444899 1 Tablet(s) PO QD 06/16/201412/21 Inactive Flexeril [...] 2014 Inactive Xanax 0.25 mg tablet RxNorm: 490223 1/2 - 1 Tablet(s) PO as nee ded for anxiety 01/28/2014 06/15/2014 Inactive naproxen 500 mg tablet RxNorm: 667163 1 Tablet(s) PO BID 12/10/2013 0 01/08/2014 Inactive Zoloft 50 mg tablet RxNorm: 511949 1 Tablet(s) PO QD 12/10/201304/08 Inactive Xanax 0.25 mg tablet RxNorm: 784247 1/2 - 1 Tablet(s) PO as nee ded for anxiety 12/10/2013 01/27/2014 Inactive Xanax 0.25 mg tablet RxNorm: 364832 1 Tablet(s) PO Q8H 10/20/2013 Inactive Zoloft 50 mg tablet RxNorm: 972924 1/2 Tablet(s) PO x 6 days then on1 tablet daily 10/20/2013 11/18/2013 Inactive Loestrin Fe 20 (28) 1 mg-20 mcg tablet RxNorm: 6572634 1 Table t(s) PO QD 10/20/2013 05/03/2014 Inactive phenazopyridine 100 mg tablet RxNorm: 2765426 1 Tablet(s) PO Q8H 06/26/2013 Inactive Macrobid 100 mg capsule RxNorm: 946105 1 Capsule(s) PO BID 06/25/19 14 07/04/2013 Inactive phenazopyridine 100 mg tablet RxNorm: 0502390 1 Tablet(s) PO Q8H 06/24/2013 Inactive Macrobid 100 mg capsule RxNorm: 695440 1 Capsule(s) PO BID 07/25/19 11 08/02/2010 Inactive Apri 0.15 mg-30 mcg tablet RxNorm: 205641 1 Tablet(s) PO QD As directed. No Start Date 06/23/2013 Inactive omeprazole 40 mg capsule,delayed release RxNorm: 404666 1 Capsule(s) PO QD for stomach No Start Date 06/23/2013 Inactive naproxen 500 mg tablet RxNorm: 752972 1 Tablet(s) PO BID No Start D ate 06/15/2014 Inactive hydrocodone 10 mg-acetaminophen 325 mg tablet RxNorm: 291082 Tablet(s) PO as needed for pain No Start Date 12/22/2015 Inactive Zoloft 50 mg tablet RxNorm: 910317 1 Tablet(s) PO QD No Start Date Inactive hydrocodone 5 mg-acetaminophen 325 mg tablet RxNorm: 121785 1 Tablet(s) PO QID as needed for pain No Start Date 09/14/2013 Inactive Medication Administered No Medication Administered data Immunizations No Immunization data Results Observation Observation Code Item Item Code Result Date S ervice Location LIPASE 79299 LIPASE 14 IU/L 01/28/2014 Unknown COMPLETE BLOOD COUNT [id number] WBC 6.5 10e9/L 01/29/20 14 Unknown COMPLETE BLOOD COUNT [id number] RBC 4.54 10e12/L 2013 Unknown COMPLETE BLOOD COUNT [id number] HGB 12.1 g/dL 4 Unknown COMPLETE BLOOD COUNT [id number] HCT DET 38.0 % 4 Unknown COMPLETE BLOOD COUNT [id number] MCV 83.7 fL 4 Unknown COMPLETE BLOOD COUNT [id number] MCH 26.7 pg 4 Unknown COMPLETE BLOOD COUNT [id number] MCHC 31.8 g/dL 4 Unknown COMPLETE BLOOD COUNT [id number] PLT 218 10e9/L 01/29/20 14 Unknown COMPLETE BLOOD COUNT [id number] MPV 12.8 fL 4 Unknown COMPLETE BLOOD COUNT [id number] RACHNA % 56.5 % 4 Unknown COMPLETE BLOOD COUNT [id number] LY % 32.3 % 4 Unknown COMPLETE BLOOD COUNT [id number] MON % 8.6 % 4 Unknown COMPLETE BLOOD COUNT [id number] EOS % 2.1 % 4 Unknown COMPLETE BLOOD COUNT [id number] BASO % 0.5 % 4 Unknown COMPLETE BLOOD COUNT [id number] RDW 18.4 % 4 Unknown COMPLETE BLOOD COUNT [id number] ABS RACHNA 3.67 10e9/L 014 Unknown COMPLETE BLOOD COUNT [id number] ABS LYMPH 2.10 10e9/L 014 Unknown COMPLETE BLOOD COUNT [id number] ABS MONO 0.56 10e9/L 014 Unknown COMPLETE BLOOD COUNT [id number] ABS EOS 0.14 10e9/L 014 Unknown COMPLETE BLOOD COUNT [id number] ABS BASO 0.03 10e9/L 014 Unknown COMPLETE BLOOD COUNT [id number] RDW-SD 55.5 fL 4 Unknown COMPREHENSIVE METABOLIC 49103 AST 13 U/L 2013 Unknown COMPREHENSIVE METABOLIC 46868 ALT 7 IU/L 2013 Unknown COMPREHENSIVE METABOLIC 09274 BUN 8 MG/DL 2013 Unknown COMPREHENSIVE METABOLIC 10259 ALBUMIN 4.5 GM/DL 2013 Unknown COMPREHENSIVE METABOLIC 12614 CHLORIDE 106 MMOL/L 01/28 Unknown COMPREHENSIVE METABOLIC 79530 BILI TOT 0.4 MG/DL 2013 Unknown COMPREHENSIVE METABOLIC 72136 ALK PHOS 55 U/L 2013 Unknown COMPREHENSIVE METABOLIC 01963 SODIUM 138 MMOL/L 01/28 Unknown COMPREHENSIVE METABOLIC 53177 CREATININE 0.73 MG/DL 01/11 Unknown COMPREHENSIVE METABOLIC 23774 CALCIUM 9.9 MG/DL 2013 Unknown COMPREHENSIVE METABOLIC 42214 POTASSIUM 3.8 MMOL/L 01/28 Unknown COMPREHENSIVE METABOLIC 94393 PROT TOT 7.4 GM/DL 2013 Unknown COMPREHENSIVE METABOLIC 01814 Glucose 96 MG/DL 2013 Unknown COMPREHENSIVE METABOLIC 82935 BICARB 27 MMOL/L 2013 Unknown COMPREHENSIVE METABOLIC 12507 ANION GAP 5 MEQ/L 2013 Unknown AMYLASE 84551 AMYLASE 42 IU/L 01/28/2014 Unknown GFR CALC [id number] GFR AA >60 ML/MIN 01/28/2014 Unknown GFR CALC [id number] GFR NON-AA >60 ML/MIN 01/28/2014 Unknown Procedures Procedure Codes Date URINALYSIS NONAUTO W/O SCOPE CPT-4: 92507 06/05/2019 CEFTRIAXONE SODIUM INJECTION CPT-4: J0696 06/05/2019 THER/PROPH/DIAG INJ SC/IM CPT-4: 77207 06/05/2019 URINE CULTURE/ COLONY COUNT CPT-4: 82883 06/05/2019 URINE CULTURE/ COLONY COUNT CPT-4: 30385 03/02/2019 THER/PROPH/DIAG INJ SC/IM CPT-4: 61397 02/16/2019 URINE CULTURE/ COLONY COUNT CPT-4: 79853 02/16/2019 URINALYSIS NONAUTO W/O SCOPE CPT-4: 37043 02/16/2019 URINE TEST CPT-4: 91649 02/16/2019 THER/PROPH/DIAG INJ SC/IM CPT-4: 28647 05/21/2018 THER/PROPH/DIAG INJ SC/IM CPT-4: 17431 11/26/2017 THER/PROPH/DIAG INJ SC/IM CPT-4: 63503 08/27/2017 THER/PROPH/DIAG INJ SC/IM CPT-4: 14226 06/06/2017 URINALYSIS NONAUTO W/O SCOPE CPT-4: 43932 06/06/2017 GC/[facility]AMYDIA [facility]) CPT-4: 84281|48995 8 URINE CULTURE/ COLONY COUNT CPT-4: 02223 06/06/2017 THER/PROPH/DIAG INJ SC/IM CPT-4: 21779 01/04/2017 SPECIMEN HANDLING OFFICE-LAB CPT-4: 60128 10/18/2016 THER/PROPH/DIAG INJ SC/IM CPT-4: 67975 10/12/2016 INFLUENZA ASSAY W/OPTIC CPT-4: 67061 08/08/2016 THER/PROPH/DIAG INJ SC/IM CPT-4: 19342 07/25/2016 THER/PROPH/DIAG INJ SC/IM CPT-4: 70364 05/03/2016 THER/PROPH/DIAG INJ SC/IM CPT-4: 75067 02/20/2016 URINE TEST CPT-4: 38734 02/20/2016 AEROBIC WOUND CULTURE & STN CPT-4: 63988 12/23/2015 THER/PROPH/DIAG INJ SC/IM CPT-4: 85642 11/07/2015 URINE TEST CPT-4: 63917 11/07/2015 THER/PROPH/DIAG INJ SC/IM CPT-4: 21211 08/01/2015 THER/PROPH/DIAG INJ SC/IM CPT-4: 95876 05/11/2015 THER/PROPH/DIAG INJ SC/IM CPT-4: 26974 02/16/2015 THER/PROPH/DIAG INJ SC/IM CPT-4: 24067 11/29/2014 THER/PROPH/DIAG INJ SC/IM CPT-4: 14098 09/09/2014 URINE TEST CPT-4: 24455 06/16/2014 THER/PROPH/DIAG INJ SC/IM CPT-4: 22623 06/16/2014 ROUTINE VENIPUNCTURE CPT-4: 96978 10/07/2013 COMPLETE CBC W/AUTO DIFF WBC CPT-4: 03669 10/07/2013 CHORIONIC GONADOTROPIN TEST CPT-4: 23699 10/07/2013 URINE TEST CPT-4: 24302 09/15/2013 URINALYSIS NONAUTO W/O SCOPE CPT-4: 83879 06/24/2013 URINE CULTURE/ COLONY COUNT CPT-4: 96972 06/24/2013 URINE TEST CPT-4: 64397 09/08/2010 URINALYSIS NONAUTO W/O SCOPE CPT-4: 28498 07/24/2010 URINE CULTURE/ COLONY COUNT CPT-4: 49026 07/24/2010 DESTRUCT PREMALG LESION (Cryosurgery) CPT-4: 90245 DESTRUCT PREMALG LES 2-14 CPT-4: 46797 03/08/2010 Vital Signs Date Vital 06/05/2019 Blood Pressure 1: 131/82 Code: 8480-6 BMI: 26.3 Code: 81997-5 Heart Rate 1: 109 bpm Height: 5'9" Respiratory Rate: 16 bpm SpO2: 99% Tempera ture: 36.7 (C) / 98.1 (F) Weight: 178 lbs 03/16/2019 Blood Pressure 1: 132/86 Code: 8480-6 Heart Rate 1: 73 bpm SpO2: 99% Temperature: 36.6 (C) / 97.9 (F) Weight: 158 lbs 03/03/2018 Blood Pressure 1: 120/88 Code: 8480-6 BMI: 23.9 Code: 56529-6 Heart Rate 1: 81 bpm Height: 5'9" Respiratory Rate: 18 bpm SpO2: 99% Tempera ture: 36.1 (C) / 97.0 (F) Weight: 162 lbs 10/18/2016 Blood Pressure 1: 108/ Code: 8480-6 BMI: 22.6 Code: 65810-1 Heart Rate 1: 100 bpm Height: 5'9" Respiratory Rate: 20 bpm SpO2: 98% Tempera ture: 37.1 (C) / 98.8 (F) Weight: 153 lbs 08/08/2016 Blood Pressure 1: 114/78 Code: 8480-6 Heart Rate 1: 102 bpm Respiratory Rate: 20 bpm SpO2: 98% Temperature: 36.4 (C) / 97.6 (F) We ight: 152 lbs 05/15/2016 Blood Pressure 1: 124/ Code: 8480-6 BMI: 23.2 Code: 71260-2 Heart Rate 1: 100 bpm Height: 5'9" Respiratory Rate: 20 bpm Temperature: 37 .0 (C) / 98.6 (F) Weight: 157 lbs 12/23/2015 Blood Pressure 1: 124 Code: 8480-6 BMI: 23.0 Code: 24461-3 Heart Rate 1: 92 bpm Height: 5'9" Respiratory Rate: 20 bpm SpO2: 97% Tempera ture: 36.9 (C) / 98.5 (F) Weight: 156 lbs 01/26/2015 Blood Pressure 1: 118/78 Code: 8480-6 BMI: 21.3 Code: 15265-6 Heart Rate 1: 100 bpm Height: 5'9" Respiratory Rate: 20 bpm SpO2: 97% Tempera ture: 36.6 (C) / 97.8 (F) Weight: 144 lbs 06/16/2014 Blood Pressure 1: 11878 Code: 8480-6 BMI: 23.5 Code: 56532-0 Heart Rate 1: 78 bpm Height: 5'9" Respiratory Rate: 18 bpm Temperature: 36 .1 (C) / 97.0 (F) Weight: 159 lbs 01/28/2014 Blood Pressure 1: 124/78 Code: 8480-6 BMI: 23.2 Code: 46003-5 Heart Rate 1: 88 bpm Height: 5'9" Respiratory Rate: 22 bpm Temperature: 36 .1 (C) / 97.0 (F) Weight: 157 lbs 12/10/2013 Blood Pressure 1: 124/ Code: 8480-6 BMI: 23.0 Code: 48829-3 Heart Rate 1: 82 bpm Height: 5'9" Respiratory Rate: 20 bpm Temperature: 36 .2 (C) / 97.2 (F) Weight: 156 lbs 10/20/2013 Blood Pressure 1: 118/82 Code: 8480-6 Heart Rate 1: 84 bpm Respiratory Rate: 22 bpm Temperature: 36.5 (C) / 97.7 (F) Weight: 150 lbs 10/07/2013 Blood Pressure 1: 120/80 Code: 8480-6 BMI: 22.2 Code: 24953-1 Heart Rate 1: 68 bpm Height: 5'9" Respiratory Rate: 22 bpm Temperature: 36 .2 (C) / 97.2 (F) Weight: 150 lbs 09/15/2013 Blood Pressure 1: 118/68 Code: 8480-6 BMI: 22.0 Code: 45931-1 Heart Rate 1: 78 bpm Height: 5'9" Respiratory Rate: 20 bpm Temperature: 36 .1 (C) / 97.0 (F) Weight: 149 lbs 06/24/2013 Blood Pressure 1: 112/74 Code: 8480-6 Heart Rate 1: 74 bpm Respiratory Rate: 20 bpm Temperature: 36.6 (C) / 97.9 (F) Weight: 150 lbs 03/05/2013 Blood Pressure 1: 126/88 Code: 8480-6 BMI: 23.5 Code: 20105-4 Heart Rate 1: 80 bpm Height: 5'9" Respiratory Rate: 20 bpm Temperature: 36 .6 (C) / 97.9 (F) Weight: 159 lbs 02/09/2013 Blood Pressure 1: 110/68 Code: 8480-6 BMI: 21.9 Code: 50059-4 Heart Rate 1: 74 bpm Height: 5'9" Respiratory Rate: 22 bpm Temperature: 36 .8 (C) / 98.2 (F) Weight: 148 lbs 09/08/2010 Blood Pressure 1: 124/90 Code: 8480-6 BMI: 21.4 Code: 92962-9 Height: 5'10" Temperature: 36.4 (C) / 97.6 [...] note. verruca 03/08/2010 to hands/feet, the o dainka on the feet have become painful Encounters Encounter Performer Location Codes Date () OFFICE/OUTPATIENT VISIT EST Diagnosis: Dysuria[ICD10: R30.0] Diagnosis: Pelvic pain in female[ICD10: R10.2] Keyanna SNELLNELIDAAngelique KATTY Connors [facility] CPT-4: 10636 06/05/2019 ([id number]) OFFICE/OUTPATIENT VISIT EST Diagnosis: Left wrist pain[ICD10: M25.532] Diagnosis: Swelling of left upper extremity[ICD10: M79.89] Keyanna PINTOLINE SergioMaria Teresa DUC [employer] CPT-4: 52260 03/16/2019 ([id number]) NURSE/OUTPATIENT VISIT EST Diagnosis: Urinary tract infection[ICD10: N39.0] Josefa Thadmamadou DE SOUZA SergioMaria Teresa THADABNERNENA [employer] [facility] [employer] CPT-4: 97051 03/02/2019 ([id number]) NURSE/OUTPATIENT VISIT EST Diagnosis: Irregular menstruation, unspecified[ICD10: N92.6] Diagnosis: Urinary tract infection[ICD10: N39.0] Josefa Thadmamadou Connors THADABNERNENA [employer] CPT-4: 14266 02/16/2019 ([id number]) NURSE/OUTPATIENT VISIT EST Diagnosis: Irregular menstruation, unspecified[ICD10: N92.6] Josefa Thadabnernena JOSEFA SergioMaria Teresa THADABNERNENA [employer] [facility] [employer] CPT-4: 87811 05/21/2018 ([id number]) OFFICE/OUTPATIENT VISIT EST Diagnosis: Irregular menstruation, unspecified[ICD10: N92.6] Diagnosis: Diseases of lips[ICD10: K13.0] Diagnosis: 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] Keyanna PINTOLINE SergioMaria Teresa DUC [employer] CPT-4: 13286 03/03/2018 ([id number]) NURSE/OUTPATIENT VISIT EST Diagnosis: Irregular menstruation, unspecified[ICD10: N92.6] Josefa TALAMANTES DO [facility] CPT-4: 71666 11/26/2017 ([id number]) OFFICE/OUTPATIENT VISIT EST Diagnosis: Irregular menstruation, unspecified[ICD10: N92.6] Josefa TALAMANTES DO [facility] CPT-4: 03636 08/27/2017 ([id number]) OFFICE/OUTPATIENT VISIT EST Diagnosis: Dysuria[ICD10: R30.0] Diagnosis: Irregular menstruation, unspecified[ICD10: N92.6] Josefa TALAMANTES DO [facility] CPT-4: 28515 06/06/2017 ([id number]) OFFICE/OUTPATIENT VISIT EST Diagnosis: Irregular menstruation, unspecified[ICD10: N92.6] Josefa TALAMANTES DO [facility] CPT-4: 85269 01/04/2017 ([id number]) PREV VISIT EST AGE 18-39 Diagnosis: Encounter for general adult medical examination without abnormal findings[ICD10: Z00.00] Diagnosis: Encounter for gynecological examination (general) (routine) without abnormal findings[ICD10: Z01.419] Diagnosis: Gastro-esophageal reflux disease without esophagitis[ICD10: K21.9] Diagnosis: Dysphagia, pharyngeal phase[ICD10: R13.13] Josefa TALAMANTES DO [facility] CPT-4: 17425 10/18/2016 ([id number]) OFFICE/OUTPATIENT VISIT EST Diagnosis: Irregular menstruation, unspecified[ICD10: N92.6] Josefa TALAMANTES DO [facility] CPT-4: 95763 10/12/2016 ([id number]) OFFICE/OUTPATIENT VISIT EST Diagnosis: Fever, unspecified[ICD10: R50.9] Diagnosis: Influenza due to identified novel influenza A virus with other respiratory manifestations[ICD10: J09.X2] Catrina Bran JOSEFA TALAMANTES DO [facility] CPT-4: 43462 08/08/2016 ([id number]) OFFICE/OUTPATIENT VISIT EST Diagnosis: Irregular menstruation, unspecified[ICD10: N92.6] Josefa TALAMANTES DO [facility] CPT-4: 81258 07/25/2016 ([id number]) OFFICE/OUTPATIENT VISIT EST Diagnosis: Right upper quadrant pain[ICD10: R10.11] Diagnosis: Unspecified abdominal pain[ICD10: R10.9] Josefa TALAMANTES DO [facility] CPT-4: 13919 05/15/2016 ([id number]) OFFICE/OUTPATIENT VISIT EST Diagnosis: Irregular menstruation, unspecified[ICD10: N92.6] Josefa TALAMANTES DO [facility] CPT-4: 72182 05/03/2016 ([id number]) OFFICE/OUTPATIENT VISIT EST Diagnosis: Irregular menstruation, unspecified[ICD10: N92.6] Josefa TALAMANTES DO [facility] CPT-4: 92609 02/20/2016 OFFICE/OUTPATIENT VISIT EST Diagnosis: Cutaneous abscess of buttock[ICD10: L02.31] Kitty Caldera JOSEFA TALAMANTES DO [facility] CPT-4: 09964 12/23/2015 ([id number]) OFFICE/OUTPATIENT VISIT EST Diagnosis: Irregular menstruation, unspecified[ICD10: N92.6] Josefa TALAMANTES DO [facility] CPT-4: 87392 11/07/2015 ([id number]) OFFICE/OUTPATIENT VISIT EST Diagnosis: Irregular menstruation, unspecified[ICD10: N92.6] Josefa TALAMANTES DO [facility] CPT-4: 02197 08/01/2015 ([id number]) OFFICE/OUTPATIENT VISIT EST Diagnosis: Irregular menstruation, unspecified[ICD10: N92.6] Josefa TALAMANTES DO [facility] CPT-4: 27269 05/11/2015 ([id number]) OFFICE/OUTPATIENT VISIT EST Diagnosis: Irregular menstruation, unspecified[ICD10: N92.6] Josefa TALAMANTES DO [facility] CPT-4: 04563 02/16/2015 OFFICE/OUTPATIENT VISIT EST Diagnosis: SINUSITIS, ACUTE[ICD9: 461.9] Malgorzata VanBecelaere JOSEFA S. ORENDER DO [facility] CPT-4: 92219 01/26/2015 ([id number]) OFFICE/OUTPATIENT VISIT EST Diagnosis: IRREGULAR MENSTRUATION[ICD9: 626.4] Josefa TALAMANTES DO [facility] CPT-4: 76929 11/29/2014 ([id number]) OFFICE/OUTPATIENT VISIT EST Diagnosis: IRREGULAR MENSTRUATION[ICD9: 626.4] Josefa TALAMANTES [facility] CPT-4: 23032 09/09/2014 ([id number]) OFFICE/OUTPATIENT VISIT EST Diagnosis: IRREGULAR MENSTRUATION[ICD9: 626.4] Diagnosis: General counseling and advice on contraceptive management[ICD9: V25.09] Diagnosis: Anxiety and depression[ICD9: 300.4] Malgorzata TALAMANTES [facility] CPT-4: 91132 06/16/2014 OFFICE/OUTPATIENT VISIT EST Diagnosis: Right upper quadrant pain[ICD9: 789.01] Malgorzata WINCHESTERER [facility] CPT-4: 81134 01/28/2014 OFFICE/OUTPATIENT VISIT EST Diagnosis: Right upper quadrant pain[ICD9: 789.01] Malgorzata TALAMANTES [facility] CPT-4: 99572 12/10/2013 OFFICE/OUTPATIENT VISIT EST Diagnosis: Anxiety and depression[ICD9: 300.4] Malgorzata VillanuevaErinjuanjo ALANIZ SMaria Teresa TALAMANTES [facility] CPT-4: 75899 10/20/2013 OFFICE/OUTPATIENT VISIT EST Diagnosis: Menorrhagia[ICD9: 626.2] Malgorzata VillanuevaErinjuanjo RIVERA [facility] CPT-4: 52466 10/07/2013 OFFICE/OUTPATIENT VISIT EST Diagnosis: IRREGULAR MENSTRUATION[ICD9: 626.4] Malgorzata VillanuevaErinjuanjo TALAMANTES [facility] CPT-4: 10528 09/15/2013 OFFICE/OUTPATIENT VISIT EST Diagnosis: HEMATURIA NOS[ICD9: 599.70] Diagnosis: Abdominal discomfort in right upper quadrant[ICD9: 789.01] Malgorzata Hill. ANNABELLAER [employer] [facility] [employer] CPT-4: 75950 06/24/2013 ([id number]) OFFICE/OUTPATIENT VISIT EST Diagnosis: ABDOMINAL PAIN[ICD9: 789.00] Diagnosis: GERD[ICD9: 530.81] Josefa Winchesternena TALAMANTES DO [facility] CPT-4: 69182 03/05/2013 OFFICE/OUTPATIENT VISIT EST Diagnosis: General counseling and advice on contraceptive management[ICD9: V25.09] Diagnosis: IRREGULAR MENSTRUATION[ICD9: 626.4] Malgorzata TALAMANTES DO [facility] CPT-4: 17237 02/09/2013 ([id number]) OFFICE/OUTPATIENT VISIT GISEL TALAMANTES DO [facility] CPT-4: 18440 09/08/2010 ([id number]) OFFICE/OUTPATIENT VISIT GISEL TALAMANTES DO [facility] CPT-4: 29482 07/24/2010 Plan of Care Planned Activity Notes [...] ICD-10 : M25.532 03/16/2019 Appointment: Keyanna Mejía [address] [place], [place] [id number] [place] [address] Follow Up 03/16/2019 Appointment: Josefa Talamantes WPtel: [facility] [place] [address] 03/02/2019 Appointment: Josefa Talamantes WPtel: [address] [place], [place] [id number] [place] INJECTION 02/16/2019 Appointment: Josefa Talamantes WPtel: [address] [place], [place] [phone] [place] INJECTION 05/21/2018 Visit Diagnosis Plan: Diseases [...] ICD-10 : N92.6 03/03/2018 Appointment: Keyanna Mejía [address] [place], [place] [phone] [place] ACUTE ILLNESS 03/03/2018 Patient Education: Patient Medication Summary Completed 03/03/2018 Care Plan: US EXAM OF HEAD AND NECK thyroid LOIN C : 81022-1 Pending 03/03/2018 Appointment: Josefa Talamantes WPtel: [address] [place], [place] [id number] [place] CANCELED 02/27/2018 Appointment: Josefa Talamantes WPtel: [address] [place], [place] [id number] [place] INJECTION 11/26/2017 Patient Education: Patient Medication Summary Completed 11/26/2017 Appointment: Josefa Talamantes WPtel: [address] [place], [place] [phone] [place] INJECTION 08/27/2017 Patient Education: Patient Medication Summary Completed 08/27/2017 Appointment: Josefa Talamantes WPtel: [address] [place], [place] [phone] [place] INJECTION 06/06/2017 Patient Education: Patient Medication Summary Completed 06/06/2017 Appointment: Josefa Talamantes WPtel: [address] [place], [place] [phone] [place] INJECTION 01/04/2017 Patient Education: Patient Medication Summary Completed 01/04/2017 Appointment: Josefa Talamantes WPtel: [address] [place], [place] [phone] [place] 11/19 lm `sl 11/21 lm `sl NO SHOW 11/22/19 Patient Education: Patient Medication Summary Completed 10/22/2016 Care Plan: US EXAM OF HEAD AND NECK Thyroid Ultrasound LOIN C : 80011-7 Pending 10/22/2016 Visit Diagnosis Plan: Dysphagia, pharyngeal [...] : Z01.419 10/18/2016 Appointment: Josefa Talamantes WPtel: [address] [place], [place] [id number] [place] 10/17 lm `sl Annual Well Visit 10/18/2016 Patient Education: Patient Medication Summary Completed 10/18/2016 Appointment: Josefa Talamantes WPtel: [address] [place], [place] [id number] [place] INJECTION 10/12/2016 Patient Education: Patient Medication Summary Completed 10/12/2016 Visit Diagnosis Plan: Influenza due to i dentified novel influenza A virus with other respiratory manifestations Discussion: Flu A positive Rx as above Supportive care otherwise Contagious precautions discussed Notify kids' provider of exposure for their instructions ICD-9 : 488.02 ICD-10 : J09.X2 08/08/2016 Appointment: Catrina Bran [address] [place], [place] [id number] ACUTE ILLNESS 08/08/2016 Patient Education: Patient Medication Summary Completed 08/08/2016 Appointment: Josefa Talamantes WPtel: [address] [place], [place] [phone] [place] INJECTION 07/25/2016 Patient Education: Patient Medication Summary Completed 07/25/2016 Visit Plan: Finish abx and then recultur e 48hrs after completion Add levsin and zorvolex 05/15/2016 Appointment: Josefa Talamantes WPtel: [address] [place], [place] [phone] [place] 1/ lm `sl 05/15 confirmed~ Hospital Follow Up 0 05/15/2016 Patient Education: Patient Medication Summary Completed 05/15/2016 Appointment: Catrina Bran [address] [place], [place] [phone] 05/09 admitted into the hospital last night~ ACUTE ILLNESS 05/09/2016 Appointment: Josefa Talamantes WPtel: [address] [place], [place] [phone] [place] INJECTION 05/03/2016 Patient Education: Patient Medication Summary Completed 05/03/2016 Appointment: Josefa Talamantes WPtel: [address] [place], [place] [id number] [place] INJECTION 02/20/2016 Patient Education: Patient Medication [...] C&S obtained 12/23/2015 Appointment: Kitty Caldera WPtel: [address] [place], [place] [phone] [place] ACUTE ILLNESS 12/23/2015 Patient Education: Patient Medication Summary Completed 12/23/2015 Appointment: Josefa Talamantes WPtel: [address] [place], [place] [phone] [place] INJECTION 11/07/2015 Patient Education: Patient Medication Summary Completed 11/07/2015 Appointment: Josefa Talamantes WPtel: [address] [place], [place] [phone] [place] INJECTION 08/01/2015 Patient Education: Patient Medication Summary Completed 08/01/2015 Appointment: Josefa Talamantes WPtel: [address] [place], [place] [phone] [place] INJECTION 05/11/2015 Patient Education: Patient Medication Summary Completed 05/11/2015 Appointment: Malgorzata Islas WPtel: [address] [place], [place] [phone] [place] PAP 04/05/2015 Appointment: Josefa Talamantes WPtel: [address] [place], [place] [phone] [place] INJECTION 02/16/2015 Patient Education: Patient Medication Summary Completed 02/16/2015 Visit Plan: Daily nasal saline rinses Fl onase nasal spray and daily Zyrtec Medrol dose pack Z-jhonathan as directed 01/26/2015 Appointment: Malgorzata Islas WPtel: [address] [place], [place] [phone] [place] ACUTE ILLNESS 01/26/2015 Patient Education: Patient Medication Summary Completed 01/26/2015 Appointment: Josefa Talamantes WPtel: [address] [place], [place] [phone] [place] INJECTION 11/29/2014 Patient Education: Patient Medication Summary Completed 11/29/2014 Appointment: Josefa Talamantes WPtel: [address] [place], [place] [phone] [place] INJECTION 09/09/2014 Patient Education: Patient Medication Summary Completed 09/09/2014 Appointment: Malgorzaat Islas WPtel: [address] [place] [address] FOLLOW UP 06/16/2014 Patient Education: Patient Medication Summary Completed 06/16/2014 Appointment: Malgorzata Islas WPtel: [address] [place], [place] [phone] 06/02/14 appointment scheduled 06/03/14 no showed PAP 06/03/2014 Appointment: Malgorzata Islas WPtel: [address] [place] [address] FOLLOW UP 01/28/2014 Patient Education: Patient Medication Summary Completed 01/28/2014 Care Plan: COM[place] : [id number] Ordered 01/28/2014 Care Plan: AMYLASE Pending 4 Appointment: Malgorzata Islas WPtel: [address] [place] [address] FOLLOW UP 12/10/2013 Patient Education: Patient Medication Summary Completed 12/10/2013 Appointment: Malgorzata Islas WPtel: [address] [place], [place] [phone] 11/11 11/12 No Show FOLLOW UP 11/12/2013 Appointment: Malgorzata Islas WPtel: [address] [place] [address] FOLLOW UP 10/20/2013 Patient Education: Patient Medication Summary Completed 10/20/2013 Visit Plan: Quantitative Hcg and CBC tod ay. Transvaginal/Transabdominal sonogram stat Discussed with COMPLETION MANAGER and [facility] 343 so will recheck in 1week as long as not worsening 10/07/2013 Appointment: Malgorzata Islas WPtel: [address] [place], [place] [phone] ACUTE ILLNESS 10/07/2013 Patient Education: Patient Medication Summary Completed 10/07/2013 Appointment: Malgorzata Islas WPtel: [address] [place], [place] [phone] [place] ACUTE ILLNESS 09/15/2013 Patient Education: Patient Medication Summary Completed 09/15/2013 Appointment: Malgorzata Islas WPtel: [address] [place], [place] [phone] [place] ACUTE ILLNESS 06/24/2013 Patient Education: Patient Medication Summary Completed 06/24/2013 Appointment: Malgorzata Islas WPtel: [address] [place], [place] [phone] [place] appt was scheduled today then patient no showed the visit ACUTE ILLNESS 05/21/2013 Visit Plan: Check CMP, CBC, UA CT scan o f abdomen Omeprazole 03/05/2013 Appointment: Josefa Talamantes WPtel: [address] [place], [place] [id number] ACUTE ILLNESS 03/05/2013 Appointment: Josefa Talamantes WPtel: [address] [place], [place] [phone] 03/02 canceled, wrong patient FOLLOW UP Patient Education: Patient Medication Summary Completed 03/05/2013 Appointment: Malgorzata Islas WPtel: [address] [place], [place] [phone] ACUTE ILLNESS 02/09/2013 Patient Education: Patient Medication Summary Completed 02/09/2013 Appointment: Justine Ortega WPtel: [address] [place], [place] [phone] [place] ACUTE ILLNESS 09/08/2010 Patient Education: Patient Medication Summary Completed 09/08/2010 Appointment: Justine Ortega WPtel: [address] [place], [place] [phone] [place] PAP 08/08/2010 Appointment: Justine Ortega WPtel: [address] [place], [place] [phone] [place] ACUTE ILLNESS 07/24/2010 Patient Education: Patient Medication Summary Completed 07/24/2010 Visit Plan: All warts shaved with 11-rekha de scalpel and then cryotherapy x3 Will followup with DNCB treatment 03/08/2010 Appointment: Josefa Talamantes WPtel: [address] [place], [place] [phone] ACUTE ILLNESS 03/08/2010 Patient Education: Patient Medication Summary Completed 03/08/2010 Appointment: Josefa Talamantes WPtel: [phone] [id number] PAP 09/14/2009 Referral: Roney Galloway WPtel: [address] [facility] 3 [id number] Referral Initiated Referral: Brian Floyd WPtel: [address] [id number] [place] Referral Initiated Referral: Referral Initiated Instructions [...] CBC today. Transvaginal/Transabdominal sonogram stat Discussed with COMPLETION MANAGER and [facility] 343 so will recheck in [...]
--- OUTSIDE RECORDS SUMMARY | 2019-12-11 22:09 | XMS REPORT | CCD ---
Author Author Brenda Talamantes D.O. Organization [facility] Address [address] [place] [address] Phone Care Team Providers Care Silk Brusher Name Role Phone Josefa Talamantes D.O., PP Unavailable CCM Unavailable Summary Purpose Interface Exchange Insurance Providers Payer name Policy type / Coverage type Covered constitution party ID Effective Begin Date Effective End Date [facility]NA [facility] [employer] [id number] Unknown Family History Family History data not found Social History Social History Element Codes Description Effective Dates Tobacco history SNOMED CT: 881830801 Unknown if ever smoked 01/12 Allergies, Adverse [...] Fill Instructions ibuprofen 800 mg tablet RxNorm: 155321 1 Tablet(s) Oral Q8H as needed 03/16/2019 06/05/2019 Inactive Cipro 500 mg tablet RxNorm: 970068 1 Tablet(s) Oral two times a day 03/04/2019 03/11/2019 Inactive Cipro 500 mg tablet RxNorm: 524335 1 Tablet(s) Oral two times a day 03/04/2019 03/03/2019 Inactive Macrobid 100 mg capsule RxNorm: 857823 1 Capsule(s) Oral two ti mes a day 02/16/2019 02/15/2019 Inactive Macrobid 100 mg capsule RxNorm: 784489 1 Capsule(s) Oral two ti mes a [...] 11/24/2017 Inactive Pepcid 40 mg tablet RxNorm: 161497 1 Tablet(s) PO QD 10/18/201603/02 Inactive Depo-Provera 150 mg/mL intramuscular suspension RxNorm: 1000 128 Milliliter(s) 1 Milliliter(s) IM 10/10/2016 06/04/2017 Inactive Tamiflu 75 mg capsule RxNorm: 945873 1 Capsule(s) PO BID 08/08/2016 0 08/12/2016 Inactive Levsin 0.125 mg tablet RxNorm: 0963670 1 Tablet(s) PO TID for fl ank pain 05/15/2016 10/17/2016 Inactive Bactrim DS 800 mg-160 mg tablet RxNorm: 110130 1 Tablet(s) PO BID 0 12/23/2015 01/01/2016 Inactive mupirocin 2 % topical ointment RxNorm: 567311 Application TOP TID 0 12/23/2015 12/29/2015 Inactive Depo-Provera 150 mg/mL intramuscular suspension RxNorm: 1000 128 Milliliter(s) 1 Milliliter(s) IM 11/08/2015 10/09/2016 Inactive Xanax 0.25 mg tablet RxNorm: 450697 TAKE ONE-HALF TO ON E TABLET BY MOUTH NEEDED FOR ANXIETY 04/11/2015 05/10/2015 Inactive Generic For:X ANAX 0.25 MG TABLET 04/11/2015 2:54:57 PM Depo-Provera 150 mg/mL intramuscular suspension RxNorm: 1000 128 Milliliter(s) 1 Milliliter(s) IM 02/15/2015 11/07/2015 Inactive azithromycin 250 mg tablet RxNorm: 415568 2 Tablet(s) P O today, then one tablet on days 2 - 5 01/26/2015 12/22/2015 Inactive Medrol (Jhonathan) 4 mg tablets in a dose pack RxNorm: 860596 Tablet(s) P O 01/26/2015 12/22/2015 Inactive Depo-Provera 150 mg/mL intramuscular suspension RxNorm: 1000 128 1 Milliliter(s) IM 09/06/2014 02/15/2015 Inactive Xanax 0.25 mg tablet RxNorm: 844815 1/2 - 1 Tablet(s) PO as nee ded for anxiety 06/16/2014 04/12/2015 Inactive Zoloft 50 mg tablet RxNorm: 287702 1 Tablet(s) PO QD 06/16/201412/21 Inactive Flexeril [...] 2014 Inactive Xanax 0.25 mg tablet RxNorm: 411500 1/2 - 1 Tablet(s) PO as nee ded for anxiety 01/28/2014 06/15/2014 Inactive naproxen 500 mg tablet RxNorm: 376946 1 Tablet(s) PO BID 12/10/2013 0 01/08/2014 Inactive Zoloft 50 mg tablet RxNorm: 384785 1 Tablet(s) PO QD 12/10/201304/08 Inactive Xanax 0.25 mg tablet RxNorm: 788732 1/2 - 1 Tablet(s) PO as nee ded for anxiety 12/10/2013 01/27/2014 Inactive Xanax 0.25 mg tablet RxNorm: 678216 1 Tablet(s) PO Q8H 10/20/2013 Inactive Zoloft 50 mg tablet RxNorm: 166113 1/2 Tablet(s) PO x 6 days then on1 tablet daily 10/20/2013 11/18/2013 Inactive Loestrin Fe 20 (28) 1 mg-20 mcg tablet RxNorm: 2937151 1 Table t(s) PO QD 10/20/2013 05/03/2014 Inactive phenazopyridine 100 mg tablet RxNorm: 5472020 1 Tablet(s) PO Q8H 06/26/2013 Inactive Macrobid 100 mg capsule RxNorm: 251889 1 Capsule(s) PO BID 06/25/19 14 07/04/2013 Inactive phenazopyridine 100 mg tablet RxNorm: 4298047 1 Tablet(s) PO Q8H 06/24/2013 Inactive Macrobid 100 mg capsule RxNorm: 372985 1 Capsule(s) PO BID 07/25/19 11 08/02/2010 Inactive Apri 0.15 mg-30 mcg tablet RxNorm: 303033 1 Tablet(s) PO QD As directed. No Start Date 06/23/2013 Inactive omeprazole 40 mg capsule,delayed release RxNorm: 753488 1 Capsule(s) PO QD for stomach No Start Date 06/23/2013 Inactive naproxen 500 mg tablet RxNorm: 511116 1 Tablet(s) PO BID No Start D ate 06/15/2014 Inactive hydrocodone 10 mg-acetaminophen 325 mg tablet RxNorm: 369084 Tablet(s) PO as needed for pain No Start Date 12/22/2015 Inactive Zoloft 50 mg tablet RxNorm: 150501 1 Tablet(s) PO QD No Start Date Inactive hydrocodone 5 mg-acetaminophen 325 mg tablet RxNorm: 737939 1 Tablet(s) PO QID as needed for pain No Start Date 09/14/2013 Inactive Medication Administered No Medication Administered data Immunizations No Immunization data Results Observation Observation Code Item Item Code Result Date S ervice Location LIPASE 96453 LIPASE 14 IU/L 01/28/2014 Unknown COMPLETE BLOOD COUNT [id number] WBC 6.5 10e9/L 01/29/20 14 Unknown COMPLETE BLOOD COUNT [id number] RBC 4.54 10e12/L 2013 Unknown COMPLETE BLOOD COUNT [id number] HGB 12.1 g/dL 4 Unknown COMPLETE BLOOD COUNT [id number] HCT DET 38.0 % 4 Unknown COMPLETE BLOOD COUNT [id number] MCV 83.7 fL 4 Unknown COMPLETE BLOOD COUNT [id number] MCH 26.7 pg 4 Unknown COMPLETE BLOOD COUNT [id number] MCHC 31.8 g/dL 4 Unknown COMPLETE BLOOD COUNT [id number] PLT 218 10e9/L 01/29/20 14 Unknown COMPLETE BLOOD COUNT [id number] MPV 12.8 fL 4 Unknown COMPLETE BLOOD COUNT [id number] RACHNA % 56.5 % 4 Unknown COMPLETE BLOOD COUNT [id number] LY % 32.3 % 4 Unknown COMPLETE BLOOD COUNT [id number] MON % 8.6 % 4 Unknown COMPLETE BLOOD COUNT [id number] EOS % 2.1 % 4 Unknown COMPLETE BLOOD COUNT [id number] BASO % 0.5 % 4 Unknown COMPLETE BLOOD COUNT [id number] RDW 18.4 % 4 Unknown COMPLETE BLOOD COUNT [id number] ABS RACHNA 3.67 10e9/L 014 Unknown COMPLETE BLOOD COUNT [id number] ABS LYMPH 2.10 10e9/L 014 Unknown COMPLETE BLOOD COUNT [id number] ABS MONO 0.56 10e9/L 014 Unknown COMPLETE BLOOD COUNT [id number] ABS EOS 0.14 10e9/L 014 Unknown COMPLETE BLOOD COUNT [id number] ABS BASO 0.03 10e9/L 014 Unknown COMPLETE BLOOD COUNT [id number] RDW-SD 55.5 fL 4 Unknown COMPREHENSIVE METABOLIC 21675 AST 13 U/L 2013 Unknown COMPREHENSIVE METABOLIC 84722 ALT 7 IU/L 2013 Unknown COMPREHENSIVE METABOLIC 22347 BUN 8 MG/DL 2013 Unknown COMPREHENSIVE METABOLIC 13863 ALBUMIN 4.5 GM/DL 2013 Unknown COMPREHENSIVE METABOLIC 96539 CHLORIDE 106 MMOL/L 01/28 Unknown COMPREHENSIVE METABOLIC 16277 BILI TOT 0.4 MG/DL 2013 Unknown COMPREHENSIVE METABOLIC 44613 ALK PHOS 55 U/L 2013 Unknown COMPREHENSIVE METABOLIC 11804 SODIUM 138 MMOL/L 01/28 Unknown COMPREHENSIVE METABOLIC 90562 CREATININE 0.73 MG/DL 01/11 Unknown COMPREHENSIVE METABOLIC 09990 CALCIUM 9.9 MG/DL 2013 Unknown COMPREHENSIVE METABOLIC 61714 POTASSIUM 3.8 MMOL/L 01/28 Unknown COMPREHENSIVE METABOLIC 21904 PROT TOT 7.4 GM/DL 2013 Unknown COMPREHENSIVE METABOLIC 69130 Glucose 96 MG/DL 2013 Unknown COMPREHENSIVE METABOLIC 74272 BICARB 27 MMOL/L 2013 Unknown COMPREHENSIVE METABOLIC 58601 ANION GAP 5 MEQ/L 2013 Unknown AMYLASE 06850 AMYLASE 42 IU/L 01/28/2014 Unknown GFR CALC [id number] GFR AA >60 ML/MIN 01/28/2014 Unknown GFR CALC [id number] GFR NON-AA >60 ML/MIN 01/28/2014 Unknown Procedures Procedure Codes Date URINALYSIS NONAUTO W/O SCOPE CPT-4: 53156 06/05/2019 CEFTRIAXONE SODIUM INJECTION CPT-4: J0696 06/05/2019 THER/PROPH/DIAG INJ SC/IM CPT-4: 46758 06/05/2019 URINE CULTURE/ COLONY COUNT CPT-4: 47597 06/05/2019 URINE CULTURE/ COLONY COUNT CPT-4: 55902 03/02/2019 THER/PROPH/DIAG INJ SC/IM CPT-4: 23144 02/16/2019 URINE CULTURE/ COLONY COUNT CPT-4: 54522 02/16/2019 URINALYSIS NONAUTO W/O SCOPE CPT-4: 21019 02/16/2019 URINE TEST CPT-4: 24305 02/16/2019 THER/PROPH/DIAG INJ SC/IM CPT-4: 90790 05/21/2018 THER/PROPH/DIAG INJ SC/IM CPT-4: 59662 11/26/2017 THER/PROPH/DIAG INJ SC/IM CPT-4: 48119 08/27/2017 THER/PROPH/DIAG INJ SC/IM CPT-4: 83279 06/06/2017 URINALYSIS NONAUTO W/O SCOPE CPT-4: 86563 06/06/2017 GC/CHLAMYDIA DNA [facility]) CPT-4: 79731|35833 8 URINE CULTURE/ COLONY COUNT CPT-4: 53321 06/06/2017 THER/PROPH/DIAG INJ SC/IM CPT-4: 07453 01/04/2017 SPECIMEN HANDLING OFFICE-LAB CPT-4: 92588 10/18/2016 THER/PROPH/DIAG INJ SC/IM CPT-4: 44069 10/12/2016 INFLUENZA ASSAY W/OPTIC CPT-4: 27524 08/08/2016 THER/PROPH/DIAG INJ SC/IM CPT-4: 96347 07/25/2016 THER/PROPH/DIAG INJ SC/IM CPT-4: 38621 05/03/2016 THER/PROPH/DIAG INJ SC/IM CPT-4: 06592 02/20/2016 URINE TEST CPT-4: 69938 02/20/2016 AEROBIC WOUND CULTURE & STN CPT-4: 33463 12/23/2015 THER/PROPH/DIAG INJ SC/IM CPT-4: 81643 11/07/2015 URINE TEST CPT-4: 57969 11/07/2015 THER/PROPH/DIAG INJ SC/IM CPT-4: 60442 08/01/2015 THER/PROPH/DIAG INJ SC/IM CPT-4: 65173 05/11/2015 THER/PROPH/DIAG INJ SC/IM CPT-4: 15712 02/16/2015 THER/PROPH/DIAG INJ SC/IM CPT-4: 44809 11/29/2014 THER/PROPH/DIAG INJ SC/IM CPT-4: 26388 09/09/2014 URINE TEST CPT-4: 36012 06/16/2014 THER/PROPH/DIAG INJ SC/IM CPT-4: 02030 06/16/2014 ROUTINE VENIPUNCTURE CPT-4: 97854 10/07/2013 COMPLETE CBC W/AUTO DIFF WBC CPT-4: 96844 10/07/2013 CHORIONIC GONADOTROPIN TEST CPT-4: 14575 10/07/2013 URINE TEST CPT-4: 27303 09/15/2013 URINALYSIS NONAUTO W/O SCOPE CPT-4: 27413 06/24/2013 URINE CULTURE/ COLONY COUNT CPT-4: 93616 06/24/2013 URINE TEST CPT-4: 39104 09/08/2010 URINALYSIS NONAUTO W/O SCOPE CPT-4: 78630 07/24/2010 URINE CULTURE/ COLONY COUNT CPT-4: 21258 07/24/2010 DESTRUCT PREMALG LESION (Cryosurgery) CPT-4: 87673 DESTRUCT PREMALG LES 2-14 CPT-4: 93797 03/08/2010 Vital Signs Date Vital 06/05/2019 Blood Pressure 1: 131/82 Code: 8480-6 BMI: 26.3 Code: 58302-9 Heart Rate 1: 109 bpm Height: 5'9" Respiratory Rate: 16 bpm SpO2: 99% Tempera ture: 36.7 (C) / 98.1 (F) Weight: 178 lbs 03/16/2019 Blood Pressure 1: 132/86 Code: 8480-6 Heart Rate 1: 73 bpm SpO2: 99% Temperature: 36.6 (C) / 97.9 (F) Weight: 158 lbs 03/03/2018 Blood Pressure 1: 120/88 Code: 8480-6 BMI: 23.9 Code: 79571-2 Heart Rate 1: 81 bpm Height: 5'9" Respiratory Rate: 18 bpm SpO2: 99% Tempera ture: 36.1 (C) / 97.0 (F) Weight: 162 lbs 10/18/2016 Blood Pressure 1: 108/ Code: 8480-6 BMI: 22.6 Code: 17864-4 Heart Rate 1: 100 bpm Height: 5'9" Respiratory Rate: 20 bpm SpO2: 98% Tempera ture: 37.1 (C) / 98.8 (F) Weight: 153 lbs 08/08/2016 Blood Pressure 1: 114/78 Code: 8480-6 Heart Rate 1: 102 bpm Respiratory Rate: 20 bpm SpO2: 98% Temperature: 36.4 (C) / 97.6 (F) We ight: 152 lbs 05/15/2016 Blood Pressure 1: 124/ Code: 8480-6 BMI: 23.2 Code: 73366-9 Heart Rate 1: 100 bpm Height: 5'9" Respiratory Rate: 20 bpm Temperature: 37 .0 (C) / 98.6 (F) Weight: 157 lbs 12/23/2015 Blood Pressure 1: 124 Code: 8480-6 BMI: 23.0 Code: 17537-0 Heart Rate 1: 92 bpm Height: 5'9" Respiratory Rate: 20 bpm SpO2: 97% Tempera ture: 36.9 (C) / 98.5 (F) Weight: 156 lbs 01/26/2015 Blood Pressure 1: 118/78 Code: 8480-6 BMI: 21.3 Code: 75542-3 Heart Rate 1: 100 bpm Height: 5'9" Respiratory Rate: 20 bpm SpO2: 97% Tempera ture: 36.6 (C) / 97.8 (F) Weight: 144 lbs 06/16/2014 Blood Pressure 1: 11878 Code: 8480-6 BMI: 23.5 Code: 13958-9 Heart Rate 1: 78 bpm Height: 5'9" Respiratory Rate: 18 bpm Temperature: 36 .1 (C) / 97.0 (F) Weight: 159 lbs 01/28/2014 Blood Pressure 1: 124/78 Code: 8480-6 BMI: 23.2 Code: 24387-8 Heart Rate 1: 88 bpm Height: 5'9" Respiratory Rate: 22 bpm Temperature: 36 .1 (C) / 97.0 (F) Weight: 157 lbs 12/10/2013 Blood Pressure 1: 124/ Code: 8480-6 BMI: 23.0 Code: 63096-2 Heart Rate 1: 82 bpm Height: 5'9" Respiratory Rate: 20 bpm Temperature: 36 .2 (C) / 97.2 (F) Weight: 156 lbs 10/20/2013 Blood Pressure 1: 118/82 Code: 8480-6 Heart Rate 1: 84 bpm Respiratory Rate: 22 bpm Temperature: 36.5 (C) / 97.7 (F) Weight: 150 lbs 10/07/2013 Blood Pressure 1: 120/80 Code: 8480-6 BMI: 22.2 Code: 43154-8 Heart Rate 1: 68 bpm Height: 5'9" Respiratory Rate: 22 bpm Temperature: 36 .2 (C) / 97.2 (F) Weight: 150 lbs 09/15/2013 Blood Pressure 1: 118/68 Code: 8480-6 BMI: 22.0 Code: 09342-7 Heart Rate 1: 78 bpm Height: 5'9" Respiratory Rate: 20 bpm Temperature: 36 .1 (C) / 97.0 (F) Weight: 149 lbs 06/24/2013 Blood Pressure 1: 112/74 Code: 8480-6 Heart Rate 1: 74 bpm Respiratory Rate: 20 bpm Temperature: 36.6 (C) / 97.9 (F) Weight: 150 lbs 03/05/2013 Blood Pressure 1: 126/88 Code: 8480-6 BMI: 23.5 Code: 18660-6 Heart Rate 1: 80 bpm Height: 5'9" Respiratory Rate: 20 bpm Temperature: 36 .6 (C) / 97.9 (F) Weight: 159 lbs 02/09/2013 Blood Pressure 1: 110/68 Code: 8480-6 BMI: 21.9 Code: 49172-4 Heart Rate 1: 74 bpm Height: 5'9" Respiratory Rate: 22 bpm Temperature: 36 .8 (C) / 98.2 (F) Weight: 148 lbs 09/08/2010 Blood Pressure 1: 124/90 Code: 8480-6 BMI: 21.4 Code: 39275-6 Height: 5'10" Temperature: 36.4 (C) / 97.6 [...] in female[ICD10: R10.2] Keyanna SNELLNELIDAAngelique KATTY Connors THADABNERAF83 CPT-4: 35693 06/05/2019 ([id number]) OFFICE/OUTPATIENT VISIT EST Diagnosis: Left wrist pain[ICD10: M25.532] Diagnosis: Swelling of left upper extremity[ICD10: M79.89] Keyanna PINTOLINE SergioMaria Teresa DUC [facility] CPT-4: 99984 03/16/2019 ([id number]) NURSE/OUTPATIENT VISIT EST Diagnosis: Urinary tract infection[ICD10: N39.0] Josefa Thadmamadou DE SOUZA SergioMaria Teresa THADABNERNENA [facility] CPT-4: 04167 03/02/2019 ([id number]) NURSE/OUTPATIENT VISIT EST Diagnosis: Irregular menstruation, unspecified[ICD10: N92.6] Diagnosis: Urinary tract infection[ICD10: N39.0] Josefa Thadmamadou Connors THADABNERNENA [facility] CPT-4: 70923 02/16/2019 ([id number]) NURSE/OUTPATIENT VISIT EST Diagnosis: Irregular menstruation, unspecified[ICD10: N92.6] Josefa Thadabnernena JOSEFA SergioMaria Teresa THADABNERNENA [facility] CPT-4: 46438 05/21/2018 ([id number]) OFFICE/OUTPATIENT VISIT EST Diagnosis: Irregular menstruation, unspecified[ICD10: N92.6] Diagnosis: Diseases of lips[ICD10: K13.0] Diagnosis: 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] Keyanna PINTOLINE SergioMaria Teresa [facility] CPT-4: 74194 03/03/2018 ([id number]) NURSE/OUTPATIENT VISIT EST Diagnosis: Irregular menstruation, unspecified[ICD10: N92.6] Josefa [facility]ANTES [facility] CPT-4: 92699 11/26/2017 ([id number]) OFFICE/OUTPATIENT VISIT EST Diagnosis: Irregular menstruation, unspecified[ICD10: N92.6] Josefa [facility]ANTES [facility] CPT-4: 87352 08/27/2017 ([id number]) OFFICE/OUTPATIENT VISIT EST Diagnosis: Dysuria[ICD10: R30.0] Diagnosis: Irregular menstruation, unspecified[ICD10: N92.6] Josefa [facility] CPT-4: 60987 06/06/2017 ([id number]) OFFICE/OUTPATIENT VISIT EST Diagnosis: Irregular menstruation, unspecified[ICD10: N92.6] Josefa [facility]ANTES [facility] CPT-4: 21652 01/04/2017 ([id number]) PREV VISIT EST AGE 18-39 Diagnosis: Encounter for general adult medical examination without abnormal findings[ICD10: Z00.00] Diagnosis: Encounter for gynecological examination (general) (routine) without abnormal findings[ICD10: Z01.419] Diagnosis: Gastro-esophageal reflux disease without esophagitis[ICD10: K21.9] Diagnosis: Dysphagia, pharyngeal phase[ICD10: R13.13] Josefa [facility]ANTES [facility] CPT-4: 70366 10/18/2016 ([id number]) OFFICE/OUTPATIENT VISIT EST Diagnosis: Irregular menstruation, unspecified[ICD10: N92.6] Josefa [facility]ALAMANTES [facility] CPT-4: 49191 10/12/2016 ([id number]) OFFICE/OUTPATIENT VISIT EST Diagnosis: Fever, unspecified[ICD10: R50.9] Diagnosis: Influenza due to identified novel influenza A virus with other respiratory manifestations[ICD10: J09.X2] Catrina Bran JOSEFA [facility]AL[facility]ANTES [facility] CPT-4: 23171 08/08/2016 ([id number]) OFFICE/OUTPATIENT VISIT EST Diagnosis: Irregular menstruation, unspecified[ICD10: N92.6] Josefa TALAMANTES [facility] CPT-4: 73145 07/25/2016 ([id number]) OFFICE/OUTPATIENT VISIT EST Diagnosis: Right upper quadrant pain[ICD10: R10.11] Diagnosis: Unspecified abdominal pain[ICD10: R10.9] Josefa TALAMANTES [facility] CPT-4: 34391 05/15/2016 ([id number]) OFFICE/OUTPATIENT VISIT EST Diagnosis: Irregular menstruation, unspecified[ICD10: N92.6] Josefa TALAMANTES [facility] CPT-4: 13839 05/03/2016 ([id number]) OFFICE/OUTPATIENT VISIT EST Diagnosis: Irregular menstruation, unspecified[ICD10: N92.6] Josefa TALAMANTES [facility] CPT-4: 80883 02/20/2016 OFFICE/OUTPATIENT VISIT EST Diagnosis: Cutaneous abscess of buttock[ICD10: L02.31] Kitty Caldera JOSEFA TALAMANTES [facility] CPT-4: 91239 12/23/2015 ([id number]) OFFICE/OUTPATIENT VISIT EST Diagnosis: Irregular menstruation, unspecified[ICD10: N92.6] Josefa [facility]ALAMANTES [facility] CPT-4: 89220 11/07/2015 ([id number]) OFFICE/OUTPATIENT VISIT EST Diagnosis: Irregular menstruation, unspecified[ICD10: N92.6] Josefa TALAMANTES [facility] CPT-4: 18226 08/01/2015 ([id number]) OFFICE/OUTPATIENT VISIT EST Diagnosis: Irregular menstruation, unspecified[ICD10: N92.6] Josefa TALAMANTES [facility] CPT-4: 74987 05/11/2015 ([id number]) OFFICE/OUTPATIENT VISIT EST Diagnosis: Irregular menstruation, unspecified[ICD10: N92.6] Josefa TALAMANTES [facility] CPT-4: 46167 02/16/2015 OFFICE/OUTPATIENT VISIT EST Diagnosis: SINUSITIS, ACUTE[ICD9: 461.9] Malgorzata VanBecelaere JOSEFA S. ORENDER [facility] CPT-4: 06168 01/26/2015 ([id number]) OFFICE/OUTPATIENT VISIT EST Diagnosis: IRREGULAR MENSTRUATION[ICD9: 626.4] Josefa TALAMANTES [facility] CPT-4: 28968 11/29/2014 ([id number]) OFFICE/OUTPATIENT VISIT EST Diagnosis: IRREGULAR MENSTRUATION[ICD9: 626.4] Josefa TALAMANTES [facility] CPT-4: 53824 09/09/2014 ([id number]) OFFICE/OUTPATIENT VISIT EST Diagnosis: IRREGULAR MENSTRUATION[ICD9: 626.4] Diagnosis: General counseling and advice on contraceptive management[ICD9: V25.09] Diagnosis: Anxiety and depression[ICD9: 300.4] Malgorzata TALAMANTES [facility] CPT-4: 42631 06/16/2014 OFFICE/OUTPATIENT VISIT EST Diagnosis: Right upper quadrant pain[ICD9: 789.01] Malgorzata [facility] CPT-4: 13254 01/28/2014 OFFICE/OUTPATIENT VISIT EST Diagnosis: Right upper quadrant pain[ICD9: 789.01] Malgorzata TALAMANTES [facility] CPT-4: 64539 12/10/2013 OFFICE/OUTPATIENT VISIT EST Diagnosis: Anxiety and depression[ICD9: 300.4] Malgorzata VillanuevaErinjuanjo ALANIZ SMaria Teresa TALAMANTES [facility] CPT-4: 86467 10/20/2013 OFFICE/OUTPATIENT VISIT EST Diagnosis: Menorrhagia[ICD9: 626.2] Malgorzata VillanuevaErinjuanjo RIVERA [facility] CPT-4: 21090 10/07/2013 OFFICE/OUTPATIENT VISIT EST Diagnosis: IRREGULAR MENSTRUATION[ICD9: 626.4] Malgorzata VillanuevaErinjuanjo TALAMANTES [facility] CPT-4: 70316 09/15/2013 OFFICE/OUTPATIENT VISIT EST Diagnosis: HEMATURIA NOS[ICD9: 599.70] Diagnosis: Abdominal discomfort in right upper quadrant[ICD9: 789.01] Malgorzata Hill. ANNABELLAER [facility] CPT-4: 79594 06/24/2013 ([id number]) OFFICE/OUTPATIENT VISIT EST Diagnosis: ABDOMINAL PAIN[ICD9: 789.00] Diagnosis: GERD[ICD9: 530.81] Josefa Winchesternena TALAMANTES DO [facility] [facility] [employer] CPT-4: 85658 03/05/2013 OFFICE/OUTPATIENT VISIT EST Diagnosis: General counseling and advice on contraceptive management[ICD9: V25.09] Diagnosis: IRREGULAR MENSTRUATION[ICD9: 626.4] Malgorzata TALAMANTES DO [facility] CPT-4: 93702 02/09/2013 ([id number]) OFFICE/OUTPATIENT VISIT GISEL TALAMANTES DO [employer] CPT-4: 45933 09/08/2010 ([id number]) OFFICE/OUTPATIENT VISIT GISEL TALAMANTES DO [employer] CPT-4: 89871 07/24/2010 Plan of Care Planned Activity Notes [...] : M25.532 03/16/2019 Appointment: Keyanna Mejía [address] [place], [place] [id number] [place] [address] Follow Up 03/16/2019 Appointment: Josefa Talamantes WPtel: [facility] [place] [address] 03/02/2019 Appointment: Josefa Talamantes WPtel: [address] [place], [place] [id number] [place] INJECTION 02/16/2019 Appointment: Josefa Talamantes WPtel: [address] [place], [place] [id number] [place] INJECTION 05/21/2018 Visit Diagnosis Plan: Diseases [...] in office and negative. 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 had pap october of 2016. not due until 2019 or patient turns 29. ICD-9 : 626.4 ICD-10 : N92.6 03/03/2018 Appointment: Keyanna Mejía [address] [place], [place] [phone] [place] ACUTE ILLNESS 03/03/2018 Patient Education: Patient Medication Summary Completed 03/03/2018 Care Plan: US EXAM OF HEAD AND NECK thyroid LOIN C : 24970-3 Pending 03/03/2018 Appointment: Josefa Talamantes WPtel: [address] [place], [place] [id number] [place] CANCELED 02/27/2018 Appointment: Josefa Talamantes WPtel: [address] [place], [place] [id number] [place] INJECTION 11/26/2017 Patient Education: Patient Medication Summary Completed 11/26/2017 Appointment: Josefa Talamantes WPtel: [address] [place], [place] [phone] [place] INJECTION 08/27/2017 Patient Education: Patient Medication Summary Completed 08/27/2017 Appointment: Josefa Talamantes WPtel: [address] [place], [place] [phone] [place] INJECTION 06/06/2017 Patient Education: Patient Medication Summary Completed 06/06/2017 Appointment: Josefa Talamantes WPtel: [address] [place], [place] [phone] [place] INJECTION 01/04/2017 Patient Education: Patient Medication Summary Completed 01/04/2017 Appointment: Josefa Talamantes WPtel: [address] [place], [place] [phone] [place] 11/19 lm `sl 11/21 lm `sl NO SHOW 11/22/19 Patient Education: Patient Medication Summary Completed 10/22/2016 Care Plan: US EXAM OF HEAD AND NECK Thyroid Ultrasound LOIN C : 93111-2 Pending 10/22/2016 Visit Diagnosis Plan: Dysphagia, pharyngeal [...] : Z01.419 10/18/2016 Appointment: Josefa Talamantes WPtel: [address] [place] [phone] [place] 10/17 lm `sl Annual Well Visit 10/18/2016 Patient Education: Patient Medication Summary Completed 10/18/2016 Appointment: Josefa Talamantes WPtel: [address] [place] [phone] [place] INJECTION 10/12/2016 Patient Education: Patient Medication Summary Completed 10/12/2016 Visit Diagnosis Plan: Influenza due to i dentified novel influenza A virus with other respiratory manifestations Discussion: Flu A positive Rx as above Supportive care otherwise Contagious precautions discussed Notify kids' provider of exposure for their instructions ICD-9 : 488.02 ICD-10 : J09.X2 08/08/2016 Appointment: Catrina Bran [address] [place], [place] [id number] ACUTE ILLNESS 08/08/2016 Patient Education: Patient Medication Summary Completed 08/08/2016 Appointment: Josefa Talamantes WPtel: [address] [place], [place] [phone] [place] INJECTION 07/25/2016 Patient Education: Patient Medication Summary Completed 07/25/2016 Visit Plan: Finish abx and then recultur e 48hrs after completion Add levsin and zorvolex 05/15/2016 Appointment: Josefa Talamantes WPtel: [address] [place], [place] [phone] [place] 1/ lm `sl 05/15 confirmed~ Hospital Follow Up 0 05/15/2016 Patient Education: Patient Medication Summary Completed 05/15/2016 Appointment: Catrina Bran [address] [place], [place] [phone] 05/09 admitted into the hospital last night~ ACUTE ILLNESS 05/09/2016 Appointment: Josefa Talamantes WPtel: [address] [place], [place] [phone] [place] INJECTION 05/03/2016 Patient Education: Patient Medication Summary Completed 05/03/2016 Appointment: Josefa Talamantes WPtel: [address] [place], [place] [id number] [place] INJECTION 02/20/2016 Patient Education: Patient Medication [...] C&S obtained 12/23/2015 Appointment: Kitty Caldera WPtel: [address] [place], [place] [phone] [place] ACUTE ILLNESS 12/23/2015 Patient Education: Patient Medication Summary Completed 12/23/2015 Appointment: Josefa Talamantes WPtel: [address] [place], [place] [phone] [place] INJECTION 11/07/2015 Patient Education: Patient Medication Summary Completed 11/07/2015 Appointment: Josefa Talamantes WPtel: [address] [place], [place] [phone] [place] INJECTION 08/01/2015 Patient Education: Patient Medication Summary Completed 08/01/2015 Appointment: Josefa Talamantes WPtel: [address] [place], [place] [phone] [place] INJECTION 05/11/2015 Patient Education: Patient Medication Summary Completed 05/11/2015 Appointment: Malgorzata Islas WPtel: [address] [place], [place] [phone] US PAP 04/05/2015 Appointment: Josefa Talamantes WPtel: [address] [place], [place] [phone] [place] INJECTION 02/16/2015 Patient Education: Patient Medication Summary Completed 02/16/2015 Visit Plan: Daily nasal saline rinses Fl onase nasal spray and daily Zyrtec Medrol dose pack Z-jhonathan as directed 01/26/2015 Appointment: Malgorzata Islas WPtel: [address] [place], [place] [phone] [place] ACUTE ILLNESS 01/26/2015 Patient Education: Patient Medication Summary Completed 01/26/2015 Appointment: Josefa Talamantes WPtel: [address] [place], [place] [phone] [place] INJECTION 11/29/2014 Patient Education: Patient Medication Summary Completed 11/29/2014 Appointment: Josefa Talamantes WPtel: [address] [place], [place] [phone] [place] INJECTION 09/09/2014 Patient Education: Patient Medication Summary Completed 09/09/2014 Appointment: Malgorzata Islas WPtel: [address] [place] [address] FOLLOW UP 06/16/2014 Patient Education: Patient Medication Summary Completed 06/16/2014 Appointment: Malgorzata Islas WPtel: [address] [place], [place] [phone] 06/02/14 appointment scheduled 06/03/14 no showed PAP 06/03/2014 Appointment: Malgorzata Islas WPtel: [address] [place] [address] FOLLOW UP 01/28/2014 Patient Education: Patient Medication Summary Completed 01/28/2014 Care Plan: [place] : [address]-8 Ordered 01/28/2014 Care Plan: AMYLASE Pending 4 Appointment: Malgorzata Islas WPtel: [address] [place] [address] FOLLOW UP 12/10/2013 Patient Education: Patient Medication Summary Completed 12/10/2013 Appointment: Malgorzata Islas WPtel: [address] [place], [place] [phone] 11/11 11/12 No Show FOLLOW UP 11/12/2013 Appointment: Malgorzata Islas WPtel: [address] [place] [address] FOLLOW UP 10/20/2013 Patient Education: Patient Medication Summary Completed 10/20/2013 Visit Plan: Quantitative Hcg and CBC tod ay. Transvaginal/Transabdominal sonogram stat Discussed with TURNING MACHINE OPERATOR and [facility] 343 so will recheck in 1week as long as not worsening 10/07/2013 Appointment: Malgorzata Islas WPtel: [address] [place], [place] [phone] ACUTE ILLNESS 10/07/2013 Patient Education: Patient Medication Summary Completed 10/07/2013 Appointment: Malgorzata Islas WPtel: [address] [place], [place] [phone] [place] ACUTE ILLNESS 09/15/2013 Patient Education: Patient Medication Summary Completed 09/15/2013 Appointment: Malgorzata Islas WPtel: [address] [place], [place] [phone] [place] ACUTE ILLNESS 06/24/2013 Patient Education: Patient Medication Summary Completed 06/24/2013 Appointment: Malgorzata Islas WPtel: [address] [place], [place] [phone] [place] appt was scheduled today then patient no showed the visit ACUTE ILLNESS 05/21/2013 Visit Plan: Check CMP, CBC, UA CT scan o f abdomen Omeprazole 03/05/2013 Appointment: Josefa Tlaamantes WPtel: [address] [place], [place] [phone] ACUTE ILLNESS 03/05/2013 Appointment: Josefa Talamantes WPtel: [address] [place], [place] [phone] 03/02 canceled, wrong patient FOLLOW UP Patient Education: Patient Medication Summary Completed 03/05/2013 Appointment: Malgorzata Islas WPtel: [address] [place], [place] [phone] ACUTE ILLNESS 02/09/2013 Patient Education: Patient Medication Summary Completed 02/09/2013 Appointment: Justine Ortega WPtel: [address] [place], [place] [phone] [place] ACUTE ILLNESS 09/08/2010 Patient Education: Patient Medication Summary Completed 09/08/2010 Appointment: Justine Ortega WPtel: [address] [place], [place] [phone] [place] PAP 08/08/2010 Appointment: Justine Ortega WPtel: [address] [place], [place] [phone] [place] ACUTE ILLNESS 07/24/2010 Patient Education: Patient Medication Summary Completed 07/24/2010 Visit Plan: All warts shaved with 11-rekha de scalpel and then cryotherapy x3 Will followup with DNCB treatment 03/08/2010 Appointment: Josefa Talamantes WPtel: [address] [place], [place] [phone] ACUTE ILLNESS 03/08/2010 Patient Education: Patient Medication Summary Completed 03/08/2010 Appointment: Josefa Talamantes WPtel: [phone] [id number] PAP 09/14/2009 Referral: Roney Galloway WPtel: [address] [facility] 3 [id number] Referral Initiated Referral: Brian Floyd WPtel: [address] [id number] [place] Referral Initiated Referral: Referral Initiated Instructions [...] CBC today. Transvaginal/Transabdominal sonogram stat Discussed with TURNING MACHINE OPERATOR and [facility] 343 so will [...]
--- OUTSIDE RECORDS SUMMARY | 2019-12-11 22:09 | XMS REPORT | CCD ---
Author Author Brenda Talamantes D.O. Organization JOSEFA TALAMANTES DO [facility] Address [address] [place] [address] Phone Care Team Providers Care Door Opener Name Role Phone Josefa Talamantes D.O., PP Unavailable CCM Unavailable Summary Purpose Interface Exchange Insurance Providers Payer name Policy type / Coverage type Covered alliance party ID Effective Begin Date Effective End Date [employer]NA [facility] [employer] Insurance [id number] Unknown Family History Family History data not found Social History Social History Element Codes Description Effective Dates Tobacco history SNOMED CT: 986640751 Unknown if ever smoked 01/12 Allergies, Adverse [...] Fill Instructions ibuprofen 800 mg tablet RxNorm: 316246 1 Tablet(s) Oral Q8H as needed 03/16/2019 06/05/2019 Inactive Cipro 500 mg tablet RxNorm: 101733 1 Tablet(s) Oral two times a day 03/04/2019 03/11/2019 Inactive Cipro 500 mg tablet RxNorm: 095178 1 Tablet(s) Oral two times a day 03/04/2019 03/03/2019 Inactive Macrobid 100 mg capsule RxNorm: 147020 1 Capsule(s) Oral two ti mes a day 02/16/2019 02/15/2019 Inactive Macrobid 100 mg capsule RxNorm: 277253 1 Capsule(s) Oral two ti mes a [...] 11/24/2017 Inactive Pepcid 40 mg tablet RxNorm: 691995 1 Tablet(s) PO QD 10/18/201603/02 Inactive Depo-Provera 150 mg/mL intramuscular suspension RxNorm: 1000 128 Milliliter(s) 1 Milliliter(s) IM 10/10/2016 06/04/2017 Inactive Tamiflu 75 mg capsule RxNorm: 111389 1 Capsule(s) PO BID 08/08/2016 0 08/12/2016 Inactive Levsin 0.125 mg tablet RxNorm: 5580759 1 Tablet(s) PO TID for fl ank pain 05/15/2016 10/17/2016 Inactive Bactrim DS 800 mg-160 mg tablet RxNorm: 081652 1 Tablet(s) PO BID 0 12/23/2015 01/01/2016 Inactive mupirocin 2 % topical ointment RxNorm: 789000 Application TOP TID 0 12/23/2015 12/29/2015 Inactive Depo-Provera 150 mg/mL intramuscular suspension RxNorm: 1000 128 Milliliter(s) 1 Milliliter(s) IM 11/08/2015 10/09/2016 Inactive Xanax 0.25 mg tablet RxNorm: 419413 TAKE ONE-HALF TO ON E TABLET BY MOUTH NEEDED FOR ANXIETY 04/11/2015 05/10/2015 Inactive Generic For:X ANAX 0.25 MG TABLET 04/11/2015 2:54:57 PM Depo-Provera 150 mg/mL intramuscular suspension RxNorm: 1000 128 Milliliter(s) 1 Milliliter(s) IM 02/15/2015 11/07/2015 Inactive azithromycin 250 mg tablet RxNorm: 038191 2 Tablet(s) P O today, then one tablet on days 2 - 5 01/26/2015 12/22/2015 Inactive Medrol (Jhonathna) 4 mg tablets in a dose pack RxNorm: 544573 Tablet(s) P O 01/26/2015 12/22/2015 Inactive Depo-Provera 150 mg/mL intramuscular suspension RxNorm: 1000 128 1 Milliliter(s) IM 09/06/2014 02/15/2015 Inactive Xanax 0.25 mg tablet RxNorm: 673021 1/2 - 1 Tablet(s) PO as nee ded for anxiety 06/16/2014 04/12/2015 Inactive Zoloft 50 mg tablet RxNorm: 337149 1 Tablet(s) PO QD 06/16/201412/21 Inactive Flexeril [...] 2014 Inactive Xanax 0.25 mg tablet RxNorm: 974241 1/2 - 1 Tablet(s) PO as nee ded for anxiety 01/28/2014 06/15/2014 Inactive naproxen 500 mg tablet RxNorm: 646296 1 Tablet(s) PO BID 12/10/2013 0 01/08/2014 Inactive Zoloft 50 mg tablet RxNorm: 701886 1 Tablet(s) PO QD 12/10/201304/08 Inactive Xanax 0.25 mg tablet RxNorm: 411729 1/2 - 1 Tablet(s) PO as nee ded for anxiety 12/10/2013 01/27/2014 Inactive Xanax 0.25 mg tablet RxNorm: 769536 1 Tablet(s) PO Q8H 10/20/2013 Inactive Zoloft 50 mg tablet RxNorm: 954297 1/2 Tablet(s) PO x 6 days then on1 tablet daily 10/20/2013 11/18/2013 Inactive Loestrin Fe 20 (28) 1 mg-20 mcg tablet RxNorm: 1604356 1 Table t(s) PO QD 10/20/2013 05/03/2014 Inactive phenazopyridine 100 mg tablet RxNorm: 9217033 1 Tablet(s) PO Q8H 06/26/2013 Inactive Macrobid 100 mg capsule RxNorm: 922367 1 Capsule(s) PO BID 06/25/19 14 07/04/2013 Inactive phenazopyridine 100 mg tablet RxNorm: 2805542 1 Tablet(s) PO Q8H 06/24/2013 Inactive Macrobid 100 mg capsule RxNorm: 788373 1 Capsule(s) PO BID 07/25/19 11 08/02/2010 Inactive Apri 0.15 mg-30 mcg tablet RxNorm: 151642 1 Tablet(s) PO QD As directed. No Start Date 06/23/2013 Inactive omeprazole 40 mg capsule,delayed release RxNorm: 183360 1 Capsule(s) PO QD for stomach No Start Date 06/23/2013 Inactive naproxen 500 mg tablet RxNorm: 730128 1 Tablet(s) PO BID No Start D ate 06/15/2014 Inactive hydrocodone 10 mg-acetaminophen 325 mg tablet RxNorm: 303920 Tablet(s) PO as needed for pain No Start Date 12/22/2015 Inactive Zoloft 50 mg tablet RxNorm: 768095 1 Tablet(s) PO QD No Start Date Inactive hydrocodone 5 mg-acetaminophen 325 mg tablet RxNorm: 965392 1 Tablet(s) PO QID as needed for pain No Start Date 09/14/2013 Inactive Medication Administered No Medication Administered data Immunizations No Immunization data Results Observation Observation Code Item Item Code Result Date S ervice Location LIPASE 38271 LIPASE 14 IU/L 01/28/2014 Unknown COMPLETE BLOOD COUNT 2388191 WBC 6.5 10e9/L 01/29/20 14 Unknown COMPLETE BLOOD COUNT [id number] RBC 4.54 10e12/L 2013 Unknown COMPLETE BLOOD COUNT [id number] HGB 12.1 g/dL 4 Unknown COMPLETE BLOOD COUNT [id number] HCT DET 38.0 % 4 Unknown COMPLETE BLOOD COUNT [id number] MCV 83.7 fL 4 Unknown COMPLETE BLOOD COUNT [id number] MCH 26.7 pg 4 Unknown COMPLETE BLOOD COUNT [id number] MCHC 31.8 g/dL 4 Unknown COMPLETE BLOOD COUNT [id number] PLT 218 10e9/L 01/29/20 14 Unknown COMPLETE BLOOD COUNT [id number] MPV 12.8 fL 4 Unknown COMPLETE BLOOD COUNT [id number] RACHNA % 56.5 % 4 Unknown COMPLETE BLOOD COUNT [id number] LY % 32.3 % 4 Unknown COMPLETE BLOOD COUNT 3540070 MON % 8.6 % 4 Unknown COMPLETE BLOOD COUNT [id number] EOS % 2.1 % 4 Unknown COMPLETE BLOOD COUNT [id number] BASO % 0.5 % 4 Unknown COMPLETE BLOOD COUNT [id number] RDW 18.4 % 4 Unknown COMPLETE BLOOD COUNT [id number] ABS RACHNA 3.67 10e9/L 014 Unknown COMPLETE BLOOD COUNT [id number] ABS LYMPH 2.10 10e9/L 014 Unknown COMPLETE BLOOD COUNT [id number] ABS MONO 0.56 10e9/L 014 Unknown COMPLETE BLOOD COUNT 6730050 ABS EOS 0.14 10e9/L 014 Unknown COMPLETE BLOOD COUNT [id number] ABS BASO 0.03 10e9/L 014 Unknown COMPLETE BLOOD COUNT [id number] RDW-SD 55.5 fL 4 Unknown COMPREHENSIVE METABOLIC 47232 AST 13 U/L 2013 Unknown COMPREHENSIVE METABOLIC 46165 ALT 7 IU/L 2013 Unknown COMPREHENSIVE METABOLIC 41228 BUN 8 MG/DL 2013 Unknown COMPREHENSIVE METABOLIC 52393 ALBUMIN 4.5 GM/DL 2013 Unknown COMPREHENSIVE METABOLIC 30338 CHLORIDE 106 MMOL/L 01/28 Unknown COMPREHENSIVE METABOLIC 29210 BILI TOT 0.4 MG/DL 2013 Unknown COMPREHENSIVE METABOLIC 57343 ALK PHOS 55 U/L 2013 Unknown COMPREHENSIVE METABOLIC 21521 SODIUM 138 MMOL/L 01/28 Unknown COMPREHENSIVE METABOLIC 12691 CREATININE 0.73 MG/DL 01/11 Unknown COMPREHENSIVE METABOLIC 24710 CALCIUM 9.9 MG/DL 2013 Unknown COMPREHENSIVE METABOLIC 82231 POTASSIUM 3.8 MMOL/L 01/28 Unknown COMPREHENSIVE METABOLIC 04329 PROT TOT 7.4 GM/DL 2013 Unknown COMPREHENSIVE METABOLIC 48174 Glucose 96 MG/DL 2013 Unknown COMPREHENSIVE METABOLIC 57685 BICARB 27 MMOL/L 2013 Unknown COMPREHENSIVE METABOLIC 48201 ANION GAP 5 MEQ/L 2013 Unknown AMYLASE 63882 AMYLASE 42 IU/L 01/28/2014 Unknown GFR CALC [id number] GFR AA >60 ML/MIN 01/28/2014 Unknown GFR CALC [id number] GFR NON-AA >60 ML/MIN 01/28/2014 Unknown Procedures Procedure Codes Date URINALYSIS NONAUTO W/O SCOPE CPT-4: 14607 06/05/2019 URINE CULTURE/ COLONY COUNT CPT-4: 57422 03/02/2019 THER/PROPH/DIAG INJ SC/IM CPT-4: 33614 02/16/2019 URINE CULTURE/ COLONY COUNT CPT-4: 38946 02/16/2019 URINALYSIS NONAUTO W/O SCOPE CPT-4: 60332 02/16/2019 URINE TEST CPT-4: 59909 02/16/2019 THER/PROPH/DIAG INJ SC/IM CPT-4: 48005 05/21/2018 THER/PROPH/DIAG INJ SC/IM CPT-4: 53551 11/26/2017 THER/PROPH/DIAG INJ SC/IM CPT-4: 43974 08/27/2017 THER/PROPH/DIAG INJ SC/IM CPT-4: 82468 06/06/2017 URINALYSIS NONAUTO W/O SCOPE CPT-4: 97311 06/06/2017 GC/CHLAMYDIA DNA ([facility]) CPT-4: 64198|23952 8 URINE CULTURE/ COLONY COUNT CPT-4: 26625 06/06/2017 THER/PROPH/DIAG INJ SC/IM CPT-4: 69285 01/04/2017 SPECIMEN HANDLING OFFICE-LAB CPT-4: 69275 10/18/2016 THER/PROPH/DIAG INJ SC/IM CPT-4: 30891 10/12/2016 INFLUENZA ASSAY W/OPTIC CPT-4: 49277 08/08/2016 THER/PROPH/DIAG INJ SC/IM CPT-4: 48261 07/25/2016 THER/PROPH/DIAG INJ SC/IM CPT-4: 47057 05/03/2016 THER/PROPH/DIAG INJ SC/IM CPT-4: 14481 02/20/2016 URINE TEST CPT-4: 85252 02/20/2016 AEROBIC WOUND CULTURE & STN CPT-4: 40604 12/23/2015 THER/PROPH/DIAG INJ SC/IM CPT-4: 16660 11/07/2015 URINE TEST CPT-4: 33885 11/07/2015 THER/PROPH/DIAG INJ SC/IM CPT-4: 94263 08/01/2015 THER/PROPH/DIAG INJ SC/IM CPT-4: 04236 05/11/2015 THER/PROPH/DIAG INJ SC/IM CPT-4: 69899 02/16/2015 THER/PROPH/DIAG INJ SC/IM CPT-4: 04581 11/29/2014 THER/PROPH/DIAG INJ SC/IM CPT-4: 94681 09/09/2014 URINE TEST CPT-4: 17781 06/16/2014 THER/PROPH/DIAG INJ SC/IM CPT-4: 21200 06/16/2014 ROUTINE VENIPUNCTURE CPT-4: 89719 10/07/2013 COMPLETE CBC W/AUTO DIFF WBC CPT-4: 16340 10/07/2013 CHORIONIC GONADOTROPIN TEST CPT-4: 26348 10/07/2013 URINE TEST CPT-4: 85151 09/15/2013 URINALYSIS NONAUTO W/O SCOPE CPT-4: 63098 06/24/2013 URINE CULTURE/ COLONY COUNT CPT-4: 27060 06/24/2013 URINE TEST CPT-4: 32169 09/08/2010 URINALYSIS NONAUTO W/O SCOPE CPT-4: 01862 07/24/2010 URINE CULTURE/ COLONY COUNT CPT-4: 72695 07/24/2010 DESTRUCT PREMALG LESION (Cryosurgery) CPT-4: 19014 DESTRUCT PREMALG LES 2-14 CPT-4: 02000 03/08/2010 Vital Signs Date Vital 06/05/2019 Blood Pressure 1: 131/82 Code: 8480-6 BMI: 26.3 Code: 79902-4 Heart Rate 1: 109 bpm Height: 5'9" Respiratory Rate: 16 bpm SpO2: 99% Tempera ture: 36.7 (C) / 98.1 (F) Weight: 178 lbs 03/16/2019 Blood Pressure 1: 132/86 Code: 8480-6 Heart Rate 1: 73 bpm SpO2: 99% Temperature: 36.6 (C) / 97.9 (F) Weight: 158 lbs 03/03/2018 Blood Pressure 1: 120/88 Code: 8480-6 BMI: 23.9 Code: 10455-0 Heart Rate 1: 81 bpm Height: 5'9" Respiratory Rate: 18 bpm SpO2: 99% Tempera ture: 36.1 (C) / 97.0 (F) Weight: 162 lbs 10/18/2016 Blood Pressure 1: 108/78 Code: 8480-6 BMI: 22.6 Code: 55497-8 Heart Rate 1: 100 bpm Height: 5'9" Respiratory Rate: 20 bpm SpO2: 98% Tempera ture: 37.1 (C) / 98.8 (F) Weight: 153 lbs 08/08/2016 Blood Pressure 1: 114/78 Code: 8480-6 Heart Rate 1: 102 bpm Respiratory Rate: 20 bpm SpO2: 98% Temperature: 36.4 (C) / 97.6 (F) We ight: 152 lbs 05/15/2016 Blood Pressure 1: 124/80 Code: 8480-6 BMI: 23.2 Code: 14630-1 Heart Rate 1: 100 bpm Height: 5'9" Respiratory Rate: 20 bpm Temperature: 37 .0 (C) / 98.6 (F) Weight: 157 lbs 12/23/2015 Blood Pressure 1: 124/78 Code: 8480-6 BMI: 23.0 Code: 00909-4 Heart Rate 1: 92 bpm Height: 5'9" Respiratory Rate: 20 bpm SpO2: 97% Tempera ture: 36.9 (C) / 98.5 (F) Weight: 156 lbs 01/26/2015 Blood Pressure 1: 11878 Code: 8480-6 BMI: 21.3 Code: 22739-1 Heart Rate 1: 100 bpm Height: 5'9" Respiratory Rate: 20 bpm SpO2: 97% Tempera ture: 36.6 (C) / 97.8 (F) Weight: 144 lbs 06/16/2014 Blood Pressure 1: 118/78 Code: 8480-6 BMI: 23.5 Code: 05204-9 Heart Rate 1: 78 bpm Height: 5'9" Respiratory Rate: 18 bpm Temperature: 36 .1 (C) / 97.0 (F) Weight: 159 lbs 01/28/2014 Blood Pressure 1: 124/78 Code: 8480-6 BMI: 23.2 Code: 80998-2 Heart Rate 1: 88 bpm Height: 5'9" Respiratory Rate: 22 bpm Temperature: 36 .1 (C) / 97.0 (F) Weight: 157 lbs 12/10/2013 Blood Pressure 1: 124/70 Code: 8480-6 BMI: 23.0 Code: 80232-9 Heart Rate 1: 82 bpm Height: 5'9" Respiratory Rate: 20 bpm Temperature: 36 .2 (C) / 97.2 (F) Weight: 156 lbs 10/20/2013 Blood Pressure 1: 118/82 Code: 8480-6 Heart Rate 1: 84 bpm Respiratory Rate: 22 bpm Temperature: 36.5 (C) / 97.7 (F) Weight: 150 lbs 10/07/2013 Blood Pressure 1: 120/80 Code: 8480-6 BMI: 22.2 Code: 95446-9 Heart Rate 1: 68 bpm Height: 5'9" Respiratory Rate: 22 bpm Temperature: 36 .2 (C) / 97.2 (F) Weight: 150 lbs 09/15/2013 Blood Pressure 1: 118/68 Code: 8480-6 BMI: 22.0 Code: 25916-5 Heart Rate 1: 78 bpm Height: 5'9" Respiratory Rate: 20 bpm Temperature: 36 .1 (C) / 97.0 (F) Weight: 149 lbs 06/24/2013 Blood Pressure 1: 112/74 Code: 8480-6 Heart Rate 1: 74 bpm Respiratory Rate: 20 bpm Temperature: 36.6 (C) / 97.9 (F) Weight: 150 lbs 03/05/2013 Blood Pressure 1: 126/88 Code: 8480-6 BMI: 23.5 Code: 15908-5 Heart Rate 1: 80 bpm Height: 5'9" Respiratory Rate: 20 bpm Temperature: 36 .6 (C) / 97.9 (F) Weight: 159 lbs 02/09/2013 Blood Pressure 1: 110/68 Code: 8480-6 BMI: 21.9 Code: 19008-4 Heart Rate 1: 74 bpm Height: 5'9" Respiratory Rate: 22 bpm Temperature: 36 .8 (C) / 98.2 (F) Weight: 148 lbs 09/08/2010 Blood Pressure 1: 124/90 Code: 8480-6 BMI: 21.4 Code: 46972-3 Height: 5'10" Temperature: 36.4 (C) / 97.6 [...] painful Encounters Encounter Performer Location Codes Date ([id number]) OFFICE/OUTPATIENT VISIT EST Diagnosis: Dysuria[ICD10: R30.0] Diagnosis: Pelvic pain in female[ICD10: R10.2] Keyanna STRANGE KATTY Waylon TALAMANTES DO [employer] CPT-4: 89477 06/05/2019 ([id number]) OFFICE/OUTPATIENT VISIT EST Diagnosis: Left wrist pain[ICD10: M25.532] Diagnosis: Swelling of left upper extremity[ICD10: M79.89] Keyanna TALAMANTES DO [employer] CPT-4: 85285 03/16/2019 ([id number]) NURSE/OUTPATIENT VISIT EST Diagnosis: Urinary tract infection[ICD10: N39.0] Josefa Thadgaetanoflaco MELANIA NOLVIA SergioMaria Teresa [employer] CPT-4: 99516 03/02/2019 ([id number]) NURSE/OUTPATIENT VISIT EST Diagnosis: Irregular menstruation, unspecified[ICD10: N92.6] Diagnosis: Urinary tract infection[ICD10: N39.0] Josefa SNELLELMA NOLVIA SergioMaria Teresa [employer]UC [employer] CPT-4: 21327 02/16/2019 ([id number]) NURSE/OUTPATIENT VISIT EST Diagnosis: Irregular menstruation, unspecified[ICD10: N92.6] Josefa Oneilgaetanoflaco PINTOJOSEFA SergioMaria Teresa [employer] CPT-4: 89540 05/21/2018 ([id number]) OFFICE/OUTPATIENT VISIT EST Diagnosis: Irregular menstruation, unspecified[ICD10: N92.6] Diagnosis: Diseases of lips[ICD10: K13.0] Diagnosis: 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] Keyanna HillMaria Teresa DUC [employer] CPT-4: 18831 03/03/2018 ([id number]) NURSE/OUTPATIENT VISIT EST Diagnosis: Irregular menstruation, unspecified[ICD10: N92.6] Josefa Thadmamadou HELMS SergioMaria Teresa [employer] CPT-4: 56732 11/26/2017 ([id number]) OFFICE/OUTPATIENT VISIT EST Diagnosis: Irregular menstruation, unspecified[ICD10: N92.6] Josefa TALAMANTES DO [facility] CPT-4: 52574 08/27/2017 ([id number]) OFFICE/OUTPATIENT VISIT EST Diagnosis: Dysuria[ICD10: R30.0] Diagnosis: Irregular menstruation, unspecified[ICD10: N92.6] Josefa TALAMANTES DO [facility] CPT-4: 40651 06/06/2017 ([id number]) OFFICE/OUTPATIENT VISIT EST Diagnosis: Irregular menstruation, unspecified[ICD10: N92.6] Josefa TALAMANTES DO [facility] CPT-4: 77342 01/04/2017 ([id number]) PREV VISIT EST AGE 18-39 Diagnosis: Encounter for general adult medical examination without abnormal findings[ICD10: Z00.00] Diagnosis: Encounter for gynecological examination (general) (routine) without abnormal findings[ICD10: Z01.419] Diagnosis: Gastro-esophageal reflux disease without esophagitis[ICD10: K21.9] Diagnosis: Dysphagia, pharyngeal phase[ICD10: R13.13] Josefa TALAMANTES DO [facility] CPT-4: 69182 10/18/2016 ([id number]) OFFICE/OUTPATIENT VISIT EST Diagnosis: Irregular menstruation, unspecified[ICD10: N92.6] Josefa TALAMANTES DO [facility] CPT-4: 30464 10/12/2016 ([id number]) OFFICE/OUTPATIENT VISIT EST Diagnosis: Fever, unspecified[ICD10: R50.9] Diagnosis: Influenza due to identified novel influenza A virus with other respiratory manifestations[ICD10: J09.X2] Catrina Bran JOSEFA TALAMANTES DO [facility] CPT-4: 66689 08/08/2016 ([id number]) OFFICE/OUTPATIENT VISIT EST Diagnosis: Irregular menstruation, unspecified[ICD10: N92.6] Josefa TALAMANTES DO [facility] CPT-4: 67945 07/25/2016 ([id number]) OFFICE/OUTPATIENT VISIT EST Diagnosis: Right upper quadrant pain[ICD10: R10.11] Diagnosis: Unspecified abdominal pain[ICD10: R10.9] Josefa TALAMANTES DO [facility] CPT-4: 61045 05/15/2016 ([id number]) OFFICE/OUTPATIENT VISIT EST Diagnosis: Irregular menstruation, unspecified[ICD10: N92.6] Josefa TALAMANTES DO [facility] CPT-4: 09155 05/03/2016 ([id number]) OFFICE/OUTPATIENT VISIT EST Diagnosis: Irregular menstruation, unspecified[ICD10: N92.6] Josefa TALAMANTES DO [facility] CPT-4: 14984 02/20/2016 OFFICE/OUTPATIENT VISIT EST Diagnosis: Cutaneous abscess of buttock[ICD10: L02.31] Kitty Caldera JOSEFA TALAMANTES DO [facility] CPT-4: 36311 12/23/2015 ([id number]) OFFICE/OUTPATIENT VISIT EST Diagnosis: Irregular menstruation, unspecified[ICD10: N92.6] Josefa TALAMANTES DO [facility] CPT-4: 40848 11/07/2015 ([id number]) OFFICE/OUTPATIENT VISIT EST Diagnosis: Irregular menstruation, unspecified[ICD10: N92.6] Josefa TALAMANTES DO [facility] CPT-4: 86589 08/01/2015 ([id number]) OFFICE/OUTPATIENT VISIT EST Diagnosis: Irregular menstruation, unspecified[ICD10: N92.6] Josefa TALAMANTES DO [facility] CPT-4: 28057 05/11/2015 ([id number]) OFFICE/OUTPATIENT VISIT EST Diagnosis: Irregular menstruation, unspecified[ICD10: N92.6] Josefa TALAMANTES DO [facility] CPT-4: 93881 02/16/2015 OFFICE/OUTPATIENT VISIT EST Diagnosis: SINUSITIS, ACUTE[ICD9: 461.9] Malgorzata Janel JOSEFA TALAMANTES DO [facility] CPT-4: 62439 01/26/2015 ([id number]) OFFICE/OUTPATIENT VISIT EST Diagnosis: IRREGULAR MENSTRUATION[ICD9: 626.4] Josefa TALAMANTES [facility] CPT-4: 48123 11/29/2014 ([id number]) OFFICE/OUTPATIENT VISIT EST Diagnosis: IRREGULAR MENSTRUATION[ICD9: 626.4] Josefa TALAMANTES [facility] CPT-4: 77156 09/09/2014 ([id number]) OFFICE/OUTPATIENT VISIT EST Diagnosis: IRREGULAR MENSTRUATION[ICD9: 626.4] Diagnosis: General counseling and advice on contraceptive management[ICD9: V25.09] Diagnosis: Anxiety and depression[ICD9: 300.4] Malgorzata TALAMANTES [facility] CPT-4: 52152 06/16/2014 OFFICE/OUTPATIENT VISIT EST Diagnosis: Right upper quadrant pain[ICD9: 789.01] Malgorzata TALAMANTES [facility] CPT-4: 12777 01/28/2014 OFFICE/OUTPATIENT VISIT EST Diagnosis: Right upper quadrant pain[ICD9: 789.01] Malgorzata TALAMANTES [facility] CPT-4: 74243 12/10/2013 OFFICE/OUTPATIENT VISIT EST Diagnosis: Anxiety and depression[ICD9: 300.4] Malgorzata TALAMANTES [facility] CPT-4: 00995 10/20/2013 OFFICE/OUTPATIENT VISIT EST Diagnosis: Menorrhagia[ICD9: 626.2] Malgorzata RIVERA [facility] CPT-4: 62154 10/07/2013 OFFICE/OUTPATIENT VISIT EST Diagnosis: IRREGULAR MENSTRUATION[ICD9: 626.4] Malgorzata TALAMANTES [facility] CPT-4: 25849 09/15/2013 OFFICE/OUTPATIENT VISIT EST Diagnosis: HEMATURIA NOS[ICD9: 599.70] Diagnosis: Abdominal discomfort in right upper quadrant[ICD9: 789.01] Malgorzata TALAMANTES [facility] CPT-4: 60356 06/24/2013 ([id number]) OFFICE/OUTPATIENT VISIT EST Diagnosis: ABDOMINAL PAIN[ICD9: 789.00] Diagnosis: GERD[ICD9: 530.81] Josefa HELMS Way[facility] CPT-4: 09250 03/05/2013 OFFICE/OUTPATIENT VISIT EST Diagnosis: General counseling and advice on contraceptive management[ICD9: V25.09] Diagnosis: IRREGULAR MENSTRUATION[ICD9: 626.4] Malgorzata [facility] CPT-4: 39107 02/09/2013 ([id number]) OFFICE/OUTPATIENT VISIT EST [facility] CPT-4: 72123 09/08/2010 ([id number]) OFFICE/OUTPATIENT VISIT EST Justine ONEILNDER DO [employer] CPT-4: 86943 07/24/2010 Plan of Care Planned Activity Notes [...] ICD-10 : M25.532 03/16/2019 Appointment: Keyanna Mejía [address] [place], [place] [id number] Hospital Follow Up 03/16/2019 Appointment: Josefa Talamantes WPtel: [address] [place], [place] [phone] [place] UA 03/02/2019 Appointment: Josefa Talamantes WPtel: [address] [place], [place] [phone] [place] INJECTION 02/16/2019 Appointment: Josefa Talamantesteashely: [address] [place], [place] [phone] [place] INJECTION 05/21/2018 Visit Diagnosis Plan: Diseases [...] performed in office and negative. patient to pecan picker depo prescription and bring back to office for injection. had pap october of 2016. not due until 2019 or patient turns 29. ICD-9 : 626.4 ICD-10 : N92.6 03/03/2018 Appointment: Keyanna Mejía [address] [place], [place] [phone] [place] ACUTE ILLNESS 03/03/2018 Patient Education: Patient Medication Summary Completed 03/03/2018 Care Plan: US EXAM OF HEAD AND NECK thyroid LOIN C : 89603-8 Pending 03/03/2018 Appointment: Josefa Talamantes WPtel: [address] [place], [place] [phone] [place] CANCELED 02/27/2018 Appointment: Josefa Talamantes WPtel: [address] [place], [place] [phone] [place] INJECTION 11/26/2017 Patient Education: Patient Medication Summary Completed 11/26/2017 Appointment: Josefa Talamantes WPtel: [address] [place], [place] [phone] [place] INJECTION 08/27/2017 Patient Education: Patient Medication Summary Completed 08/27/2017 Appointment: Josefa Talamantes WPtel: [address] [place], [place] [phone] [place] INJECTION 06/06/2017 Patient Education: Patient Medication Summary Completed 06/06/2017 Appointment: Josefa Talamantes WPtel: [address] [place], [place] [phone] [place] INJECTION 01/04/2017 Patient Education: Patient Medication Summary Completed 01/04/2017 Appointment: Josefa Talamantes WPtel: [address] [place], [place] [phone] [place] 11/19 lm `sl 11/21 lm `sl NO SHOW 11/22/19 17 Patient Education: Patient Medication Summary Completed 10/22/2016 Care Plan: US EXAM OF HEAD AND NECK Thyroid Ultrasound LOIN C : 49154-4 Pending 10/22/2016 Visit Diagnosis Plan: Dysphagia, pharyngeal [...] : Z01.419 10/18/2016 Appointment: Josefa Talamantes WPtel: [address] [place], [place] [phone] 10/17 `sl Annual Well Visit 10/18/2016 Patient Education: Patient Medication Summary Completed 10/18/2016 Appointment: Josefa Talamantes WPtel: [address] [place], [place] [phone] [place] INJECTION 10/12/2016 Patient Education: Patient Medication Summary Completed 10/12/2016 Visit Diagnosis Plan: Influenza due to i dentified novel influenza A virus with other respiratory manifestations Discussion: Flu A positive Rx as above Supportive care otherwise Contagious precautions discussed Notify kids' provider of exposure for their instructions ICD-9 : 488.02 ICD-10 : J09.X2 08/08/2016 Appointment: Catrina Bran [address] [place], [place] [id number] ACUTE ILLNESS 08/08/2016 Patient Education: Patient Medication Summary Completed 08/08/2016 Appointment: Josefa Talamantes WPtel: [address] [place], [place] [phone] [place] INJECTION 07/25/2016 Patient Education: Patient Medication Summary Completed 07/25/2016 Visit Plan: Finish abx and then recultur e 48hrs after completion Add levsin and zorvolex 05/15/2016 Appointment: Josefa Talamantes WPtel: [address] [place], [place] [phone] [place] 05/14 lm `sl 05/15 confirmed~ Hospital Follow Up 0 05/15/2016 Patient Education: Patient Medication Summary Completed 05/15/2016 Appointment: Julia Branfany [address] [place], [place] [phone] 05/09 admitted into the hospital last night~ ACUTE ILLNESS 05/09/2016 Appointment: Josefa Talamantes WPtel: [address] [place], [place] [id number] [place] INJECTION 05/03/2016 Patient Education: Patient Medication Summary Completed 05/03/2016 Appointment: Josefa Talamantes WPtel: [address] [place], [place] [id number] [place] INJECTION 02/20/2016 Patient Education: Patient Medication Summary Completed 02/20/2016 Visit Plan: ERx for Bactrim and Bactroba n Called to [facility] 50mg 1 po q 4-6 hours prn pain #20 Warm moist heat to area qid Watch for s/s of worsening, go to UC over weekend Discussed SE of meds including s/s of SJS which would require an ER visit C&S obtained 12/23/2015 Appointment: Kitty Caldera WPtel: [phone] [id number] ACUTE ILLNESS 12/23/2015 Patient Education: Patient Medication Summary Completed 12/23/2015 Appointment: Josefa Talamantestel: [phone] [id number] [place] INJECTION 11/07/2015 Patient Education: Patient Medication Summary Completed 11/07/2015 Appointment: Josefa Talamantes WPtel: [address] [place], [place] [phone] [place] INJECTION 08/01/2015 Patient Education: Patient Medication Summary Completed 08/01/2015 Appointment: Josefa Talamantes WPtel: [address] [place], [place] [phone] [place] INJECTION 05/11/2015 Patient Education: Patient Medication Summary Completed 05/11/2015 Appointment: Malgorzata Islas WPtel: [address] [place], [place] [phone] [place] PAP 04/05/2015 Appointment: Josefa Talamantes WPtel: [address] [place], [place] [phone] [place] INJECTION 02/16/2015 Patient Education: Patient Medication Summary Completed 02/16/2015 Visit Plan: Daily nasal saline rinses Fl onase nasal spray and daily Zyrtec Medrol dose pack Z-jhonathan as directed 01/26/2015 Appointment: Malgorzata Islas WPtel: [address] [place], [place] [phone] [place] ACUTE ILLNESS 01/26/2015 Patient Education: Patient Medication Summary Completed 01/26/2015 Appointment: Josefa Talamantes WPtel: [address] [place], [place] [id number] [place] INJECTION 11/29/2014 Patient Education: Patient Medication Summary Completed 11/29/2014 Appointment: Josefa Talamantes WPtel: [address] [place], [place] [phone] [place] INJECTION 09/09/2014 Patient Education: Patient Medication Summary Completed 09/09/2014 Appointment: Malgorzata Islas WPtel: [address] [place], [place] [phone] [place] FOLLOW UP 06/16/2014 Patient Education: Patient Medication Summary Completed 06/16/2014 Appointment: Malgorzata Islas WPtel: [address] [place], [place] [phone] 06/02/14 appointment scheduled 06/03/14 no showed PAP 06/03/2014 Appointment: Malgorzata Islas WPtel: [address] [place] [address] FOLLOW UP 01/28/2014 Patient Education: Patient Medication Summary Completed 01/28/2014 Care Plan: COM[place] : [address]-9 Ordered 01/28/2014 Care Plan: AMYLASE Pending 4 Appointment: Malgorzata Islas WPtel: [address] [place] [address] FOLLOW UP 12/10/2013 Patient Education: Patient Medication Summary Completed 12/10/2013 Appointment: Malgorzata Islas WPtel: [address] [place] [address] 11/11 vm 11/12 No Show FOLLOW UP 11/12/2013 Appointment: Malgorzata Islas WPtel: [address] [place] [address] FOLLOW UP 10/20/2013 Patient Education: Patient Medication Summary Completed 10/20/2013 Visit Plan: Quantitative Hcg and CBC tod ay. Transvaginal/Transabdominal sonogram stat Discussed with [employer] RELAMPER and BHCG 343 so will recheck in 1week as long as not worsening 10/07/2013 Appointment: Malgorzata Islas WPtel: [address] [place], [place] [id number] ACUTE ILLNESS 10/07/2013 Patient Education: Patient Medication Summary Completed 10/07/2013 Appointment: Malgorzata Islas WPtel: [address] [place], [place] [phone] ACUTE ILLNESS 09/15/2013 Patient Education: Patient Medication Summary Completed 09/15/2013 Appointment: Malgorzata Islas WPtel: [address] [place], [place] [phone] ACUTE ILLNESS 06/24/2013 Patient Education: Patient Medication Summary Completed 06/24/2013 Appointment: Malgorzata Islas WPtel: [address] [place], [place] [phone] appt was scheduled today then patient no showed the visit ACUTE ILLNESS 05/21/2013 Visit Plan: Check CMP, CBC, UA CT scan o f abdomen Omeprazole 03/05/2013 Appointment: Josefa Talamantes WPtel: [address] [place], [place] [id number] ACUTE ILLNESS 03/05/2013 Appointment: Josefa Talamantes WPtel: [address] [place], [place] [phone] 03/02 canceled, wrong patient FOLLOW UP Patient Education: Patient Medication Summary Completed 03/05/2013 Appointment: Malgorzata Islas WPtel: [address] [place], [place] [id number] ACUTE ILLNESS 02/09/2013 Patient Education: Patient Medication Summary Completed 02/09/2013 Appointment: Justine Ortega WPtel: [address] [place], [place] [phone] ACUTE ILLNESS 09/08/2010 Patient Education: Patient Medication Summary Completed 09/08/2010 Appointment: Justine Ortega WPtel: [address] [place], [place] [phone] PAP 08/08/2010 Appointment: Justine Ortega WPtel: [address] [place], [place] [phone] ACUTE ILLNESS 07/24/2010 Patient Education: Patient Medication Summary Completed 07/24/2010 Visit Plan: All warts shaved with 11-rekha de scalpel and then cryotherapy x3 Will followup with DNCB treatment 03/08/2010 Appointment: Josefa Talamantes WPtel: [address] [place], [place] [phone] ACUTE ILLNESS 03/08/2010 Patient Education: Patient Medication Summary Completed 03/08/2010 Appointment: Josefa Talamantes WPtel: [phone] [id number] [place] PAP 09/14/2009 Referral: Roney Galloway WPtel: [address] [facility] 3 [id number] [place] Referral Initiated Referral: Brian Floyd WPtel: [address] [id number] [place] Referral Initiated Referral: Referral Initiated Instructions [...] CBC today. Transvaginal/Transabdominal sonogram stat Discussed with FIXTURE RELAMPER and BHCG 343 so will recheck in [...]
--- OUTSIDE RECORDS SUMMARY | 2019-12-11 22:09 | XMS REPORT | CCD ---
Author Author Brenda Talamantes D.O. 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 Name Role Phone Josefa Talamantes D.O., PP Unavailable CCM Unavailable Summary Purpose Interface Exchange Insurance Providers Payer name Policy type / Coverage type Covered green party ID Effective Begin Date Effective End Date [employer] [facility] TelePharm Insurance [id number] Unknown Family History Family History data not found Social History Social History Element Codes Description Effective Dates Tobacco history SNOMED CT: 852421669 Unknown if ever smoked 01/12 Allergies, Adverse [...] Fill Instructions ibuprofen 800 mg tablet RxNorm: 872260 1 Tablet(s) Oral Q8H as needed 03/16/2019 06/05/2019 Inactive Cipro 500 mg tablet RxNorm: 267976 1 Tablet(s) Oral two times a day 03/04/2019 03/11/2019 Inactive Cipro 500 mg tablet RxNorm: 669850 1 Tablet(s) Oral two times a day 03/04/2019 03/03/2019 Inactive Macrobid 100 mg capsule RxNorm: 066010 1 Capsule(s) Oral two ti mes a day 02/16/2019 02/15/2019 Inactive Macrobid 100 mg capsule RxNorm: 487217 1 Capsule(s) Oral two ti mes a [...] 11/24/2017 Inactive Pepcid 40 mg tablet RxNorm: 850498 1 Tablet(s) PO QD 10/18/201603/02 Inactive Depo-Provera 150 mg/mL intramuscular suspension RxNorm: 1000 128 Milliliter(s) 1 Milliliter(s) IM 10/10/2016 06/04/2017 Inactive Tamiflu 75 mg capsule RxNorm: 885848 1 Capsule(s) PO BID 08/08/2016 0 08/12/2016 Inactive Levsin 0.125 mg tablet RxNorm: 7260184 1 Tablet(s) PO TID for fl ank pain 05/15/2016 10/17/2016 Inactive Bactrim DS 800 mg-160 mg tablet RxNorm: 483721 1 Tablet(s) PO BID 0 12/23/2015 01/01/2016 Inactive mupirocin 2 % topical ointment RxNorm: 858586 Application TOP TID 0 12/23/2015 12/29/2015 Inactive Depo-Provera 150 mg/mL intramuscular suspension RxNorm: 1000 128 Milliliter(s) 1 Milliliter(s) IM 11/08/2015 10/09/2016 Inactive Xanax 0.25 mg tablet RxNorm: 503219 TAKE ONE-HALF TO ON E TABLET BY MOUTH NEEDED FOR ANXIETY 04/11/2015 05/10/2015 Inactive Generic For:X ANAX 0.25 MG TABLET 04/11/2015 2:54:57 PM Depo-Provera 150 mg/mL intramuscular suspension RxNorm: 1000 128 Milliliter(s) 1 Milliliter(s) IM 02/15/2015 11/07/2015 Inactive azithromycin 250 mg tablet RxNorm: 749579 2 Tablet(s) P O today, then one tablet on days 2 - 5 01/26/2015 12/22/2015 Inactive Medrol (Jhonathan) 4 mg tablets in a dose pack RxNorm: 982722 Tablet(s) P O 01/26/2015 12/22/2015 Inactive Depo-Provera 150 mg/mL intramuscular suspension RxNorm: 1000 128 1 Milliliter(s) IM 09/06/2014 02/15/2015 Inactive Xanax 0.25 mg tablet RxNorm: 716190 1/2 - 1 Tablet(s) PO as nee ded for anxiety 06/16/2014 04/12/2015 Inactive Zoloft 50 mg tablet RxNorm: 040746 1 Tablet(s) PO QD 06/16/201412/21 Inactive Flexeril [...] 2014 Inactive Xanax 0.25 mg tablet RxNorm: 573583 1/2 - 1 Tablet(s) PO as nee ded for anxiety 01/28/2014 06/15/2014 Inactive naproxen 500 mg tablet RxNorm: 714616 1 Tablet(s) PO BID 12/10/2013 0 01/08/2014 Inactive Zoloft 50 mg tablet RxNorm: 827747 1 Tablet(s) PO QD 12/10/201304/08 Inactive Xanax 0.25 mg tablet RxNorm: 654723 1/2 - 1 Tablet(s) PO as nee ded for anxiety 12/10/2013 01/27/2014 Inactive Xanax 0.25 mg tablet RxNorm: 181463 1 Tablet(s) PO Q8H 10/20/2013 Inactive Zoloft 50 mg tablet RxNorm: 038657 1/2 Tablet(s) PO x 6 days then on1 tablet daily 10/20/2013 11/18/2013 Inactive Loestrin Fe 20 (28) 1 mg-20 mcg tablet RxNorm: 0458270 1 Table t(s) PO QD 10/20/2013 05/03/2014 Inactive phenazopyridine 100 mg tablet RxNorm: 8061165 1 Tablet(s) PO Q8H 06/26/2013 Inactive Macrobid 100 mg capsule RxNorm: 776354 1 Capsule(s) PO BID 06/25/19 14 07/04/2013 Inactive phenazopyridine 100 mg tablet RxNorm: 5209730 1 Tablet(s) PO Q8H 06/24/2013 Inactive Macrobid 100 mg capsule RxNorm: 814560 1 Capsule(s) PO BID 07/25/19 11 08/02/2010 Inactive Apri 0.15 mg-30 mcg tablet RxNorm: 527759 1 Tablet(s) PO QD As directed. No Start Date 06/23/2013 Inactive omeprazole 40 mg capsule,delayed release RxNorm: 173794 1 Capsule(s) PO QD for stomach No Start Date 06/23/2013 Inactive naproxen 500 mg tablet RxNorm: 827727 1 Tablet(s) PO BID No Start D ate 06/15/2014 Inactive hydrocodone 10 mg-acetaminophen 325 mg tablet RxNorm: 629627 Tablet(s) PO as needed for pain No Start Date 12/22/2015 Inactive Zoloft 50 mg tablet RxNorm: 063729 1 Tablet(s) PO QD No Start Date Inactive hydrocodone 5 mg-acetaminophen 325 mg tablet RxNorm: 922984 1 Tablet(s) PO QID as needed for pain No Start Date 09/14/2013 Inactive Medication Administered No Medication Administered data Immunizations No Immunization data Results Observation Observation Code Item Item Code Result Date S ervice Location LIPASE 03617 LIPASE 14 IU/L 01/28/2014 Unknown COMPLETE BLOOD COUNT [id number] WBC 6.5 10e9/L 01/29/20 14 Unknown COMPLETE BLOOD COUNT [id number] RBC 4.54 10e12/L 2013 Unknown COMPLETE BLOOD COUNT [id number] HGB 12.1 g/dL 4 Unknown COMPLETE BLOOD COUNT [id number] HCT DET 38.0 % 4 Unknown COMPLETE BLOOD COUNT [id number] MCV 83.7 fL 4 Unknown COMPLETE BLOOD COUNT [id number] MCH 26.7 pg 4 Unknown COMPLETE BLOOD COUNT [id number] MCHC 31.8 g/dL 4 Unknown COMPLETE BLOOD COUNT [id number] PLT 218 10e9/L 01/29/20 14 Unknown COMPLETE BLOOD COUNT [id number] MPV 12.8 fL 4 Unknown COMPLETE BLOOD COUNT [id number] RACHNA % 56.5 % 4 Unknown COMPLETE BLOOD COUNT [id number] LY % 32.3 % 4 Unknown COMPLETE BLOOD COUNT [id number] MON % 8.6 % 4 Unknown COMPLETE BLOOD COUNT [id number] EOS % 2.1 % 4 Unknown COMPLETE BLOOD COUNT [id number] BASO % 0.5 % 4 Unknown COMPLETE BLOOD COUNT [id number] RDW 18.4 % 4 Unknown COMPLETE BLOOD COUNT [id number] ABS RACHNA 3.67 10e9/L 014 Unknown COMPLETE BLOOD COUNT [id number] ABS LYMPH 2.10 10e9/L 014 Unknown COMPLETE BLOOD COUNT [id number] ABS MONO 0.56 10e9/L 014 Unknown COMPLETE BLOOD COUNT [id number] ABS EOS 0.14 10e9/L 014 Unknown COMPLETE BLOOD COUNT [id number] ABS BASO 0.03 10e9/L 014 Unknown COMPLETE BLOOD COUNT [id number] RDW-SD 55.5 fL 4 Unknown COMPREHENSIVE METABOLIC 91207 AST 13 U/L 2013 Unknown COMPREHENSIVE METABOLIC 95400 ALT 7 IU/L 2013 Unknown COMPREHENSIVE METABOLIC 16261 BUN 8 MG/DL 2013 Unknown COMPREHENSIVE METABOLIC 15077 ALBUMIN 4.5 GM/DL 2013 Unknown COMPREHENSIVE METABOLIC 28996 CHLORIDE 106 MMOL/L 01/28 Unknown COMPREHENSIVE METABOLIC 67065 BILI TOT 0.4 MG/DL 2013 Unknown COMPREHENSIVE METABOLIC 35195 ALK PHOS 55 U/L 2013 Unknown COMPREHENSIVE METABOLIC 41708 SODIUM 138 MMOL/L 01/28 Unknown COMPREHENSIVE METABOLIC 89900 CREATININE 0.73 MG/DL 01/11 Unknown COMPREHENSIVE METABOLIC 16984 CALCIUM 9.9 MG/DL 2013 Unknown COMPREHENSIVE METABOLIC 77292 POTASSIUM 3.8 MMOL/L 01/28 Unknown COMPREHENSIVE METABOLIC 64811 PROT TOT 7.4 GM/DL 2013 Unknown COMPREHENSIVE METABOLIC 45357 Glucose 96 MG/DL 2013 Unknown COMPREHENSIVE METABOLIC 50538 BICARB 27 MMOL/L 2013 Unknown COMPREHENSIVE METABOLIC 36361 ANION GAP 5 MEQ/L 2013 Unknown AMYLASE 49645 AMYLASE 42 IU/L 01/28/2014 Unknown GFR CALC [id number] GFR AA >60 ML/MIN 01/28/2014 Unknown GFR CALC [id number] GFR NON-AA >60 ML/MIN 01/28/2014 Unknown Procedures Procedure Codes Date URINALYSIS NONAUTO W/O SCOPE CPT-4: 11470 06/05/2019 CEFTRIAXONE SODIUM INJECTION CPT-4: J0696 06/05/2019 THER/PROPH/DIAG INJ SC/IM CPT-4: 37343 06/05/2019 URINE CULTURE/ COLONY COUNT CPT-4: 12965 03/02/2019 THER/PROPH/DIAG INJ SC/IM CPT-4: 01327 02/16/2019 URINE CULTURE/ COLONY COUNT CPT-4: 96707 02/16/2019 URINALYSIS NONAUTO W/O SCOPE CPT-4: 80964 02/16/2019 URINE TEST CPT-4: 05107 02/16/2019 THER/PROPH/DIAG INJ SC/IM CPT-4: 40719 05/21/2018 THER/PROPH/DIAG INJ SC/IM CPT-4: 14915 11/26/2017 THER/PROPH/DIAG INJ SC/IM CPT-4: 60561 08/27/2017 THER/PROPH/DIAG INJ SC/IM CPT-4: 84600 06/06/2017 URINALYSIS NONAUTO W/O SCOPE CPT-4: 19041 06/06/2017 GC/CHLAMYDIA DNA ([facility]) CPT-4: 76943|48000 8 URINE CULTURE/ COLONY COUNT CPT-4: 68074 06/06/2017 THER/PROPH/DIAG INJ SC/IM CPT-4: 84076 01/04/2017 SPECIMEN HANDLING OFFICE-LAB CPT-4: 03798 10/18/2016 THER/PROPH/DIAG INJ SC/IM CPT-4: 05433 10/12/2016 INFLUENZA ASSAY W/OPTIC CPT-4: 88720 08/08/2016 THER/PROPH/DIAG INJ SC/IM CPT-4: 16439 07/25/2016 THER/PROPH/DIAG INJ SC/IM CPT-4: 68147 05/03/2016 THER/PROPH/DIAG INJ SC/IM CPT-4: 64895 02/20/2016 URINE TEST CPT-4: 35320 02/20/2016 AEROBIC WOUND CULTURE & STN CPT-4: 63046 12/23/2015 THER/PROPH/DIAG INJ SC/IM CPT-4: 91659 11/07/2015 URINE TEST CPT-4: 92747 11/07/2015 THER/PROPH/DIAG INJ SC/IM CPT-4: 91335 08/01/2015 THER/PROPH/DIAG INJ SC/IM CPT-4: 90874 05/11/2015 THER/PROPH/DIAG INJ SC/IM CPT-4: 90115 02/16/2015 THER/PROPH/DIAG INJ SC/IM CPT-4: 28416 11/29/2014 THER/PROPH/DIAG INJ SC/IM CPT-4: 17056 09/09/2014 URINE TEST CPT-4: 50921 06/16/2014 THER/PROPH/DIAG INJ SC/IM CPT-4: 24997 06/16/2014 ROUTINE VENIPUNCTURE CPT-4: 56335 10/07/2013 COMPLETE CBC W/AUTO DIFF WBC CPT-4: 66464 10/07/2013 CHORIONIC GONADOTROPIN TEST CPT-4: 37323 10/07/2013 URINE TEST CPT-4: 91117 09/15/2013 URINALYSIS NONAUTO W/O SCOPE CPT-4: 40072 06/24/2013 URINE CULTURE/ COLONY COUNT CPT-4: 70403 06/24/2013 URINE TEST CPT-4: 37648 09/08/2010 URINALYSIS NONAUTO W/O SCOPE CPT-4: 70208 07/24/2010 URINE CULTURE/ COLONY COUNT CPT-4: 47384 07/24/2010 DESTRUCT PREMALG LESION (Cryosurgery) CPT-4: 41914 DESTRUCT PREMALG LES 2-14 CPT-4: 70450 03/08/2010 Vital Signs Date Vital 06/05/2019 Blood Pressure 1: 131/82 Code: 8480-6 BMI: 26.3 Code: 01343-0 Heart Rate 1: 109 bpm Height: 5'9" Respiratory Rate: 16 bpm SpO2: 99% Tempera ture: 36.7 (C) / 98.1 (F) Weight: 178 lbs 03/16/2019 Blood Pressure 1: 132/86 Code: 8480-6 Heart Rate 1: 73 bpm SpO2: 99% Temperature: 36.6 (C) / 97.9 (F) Weight: 158 lbs 03/03/2018 Blood Pressure 1: 120/88 Code: 8480-6 BMI: 23.9 Code: 24213-4 Heart Rate 1: 81 bpm Height: 5'9" Respiratory Rate: 18 bpm SpO2: 99% Tempera ture: 36.1 (C) / 97.0 (F) Weight: 162 lbs 10/18/2016 Blood Pressure 1: 108/78 Code: 8480-6 BMI: 22.6 Code: 46902-0 Heart Rate 1: 100 bpm Height: 5'9" Respiratory Rate: 20 bpm SpO2: 98% Tempera ture: 37.1 (C) / 98.8 (F) Weight: 153 lbs 08/08/2016 Blood Pressure 1: 114/78 Code: 8480-6 Heart Rate 1: 102 bpm Respiratory Rate: 20 bpm SpO2: 98% Temperature: 36.4 (C) / 97.6 (F) We ight: 152 lbs 05/15/2016 Blood Pressure 1: 124/80 Code: 8480-6 BMI: 23.2 Code: 38512-0 Heart Rate 1: 100 bpm Height: 5'9" Respiratory Rate: 20 bpm Temperature: 37 .0 (C) / 98.6 (F) Weight: 157 lbs 12/23/2015 Blood Pressure 1: 12478 Code: 8480-6 BMI: 23.0 Code: 87327-8 Heart Rate 1: 92 bpm Height: 5'9" Respiratory Rate: 20 bpm SpO2: 97% Tempera ture: 36.9 (C) / 98.5 (F) Weight: 156 lbs 01/26/2015 Blood Pressure 1: 118/78 Code: 8480-6 BMI: 21.3 Code: 30128-0 Heart Rate 1: 100 bpm Height: 5'9" Respiratory Rate: 20 bpm SpO2: 97% Tempera ture: 36.6 (C) / 97.8 (F) Weight: 144 lbs 06/16/2014 Blood Pressure 1: 118/78 Code: 8480-6 BMI: 23.5 Code: 28845-6 Heart Rate 1: 78 bpm Height: 5'9" Respiratory Rate: 18 bpm Temperature: 36 .1 (C) / 97.0 (F) Weight: 159 lbs 01/28/2014 Blood Pressure 1: 124/78 Code: 8480-6 BMI: 23.2 Code: 85787-9 Heart Rate 1: 88 bpm Height: 5'9" Respiratory Rate: 22 bpm Temperature: 36 .1 (C) / 97.0 (F) Weight: 157 lbs 12/10/2013 Blood Pressure 1: 124/70 Code: 8480-6 BMI: 23.0 Code: 78127-0 Heart Rate 1: 82 bpm Height: 5'9" Respiratory Rate: 20 bpm Temperature: 36 .2 (C) / 97.2 (F) Weight: 156 lbs 10/20/2013 Blood Pressure 1: 118/82 Code: 8480-6 Heart Rate 1: 84 bpm Respiratory Rate: 22 bpm Temperature: 36.5 (C) / 97.7 (F) Weight: 150 lbs 10/07/2013 Blood Pressure 1: 120/80 Code: 8480-6 BMI: 22.2 Code: 91426-1 Heart Rate 1: 68 bpm Height: 5'9" Respiratory Rate: 22 bpm Temperature: 36 .2 (C) / 97.2 (F) Weight: 150 lbs 09/15/2013 Blood Pressure 1: 118/68 Code: 8480-6 BMI: 22.0 Code: 18951-8 Heart Rate 1: 78 bpm Height: 5'9" Respiratory Rate: 20 bpm Temperature: 36 .1 (C) / 97.0 (F) Weight: 149 lbs 06/24/2013 Blood Pressure 1: 112/74 Code: 8480-6 Heart Rate 1: 74 bpm Respiratory Rate: 20 bpm Temperature: 36.6 (C) / 97.9 (F) Weight: 150 lbs 03/05/2013 Blood Pressure 1: 126/88 Code: 8480-6 BMI: 23.5 Code: 93205-3 Heart Rate 1: 80 bpm Height: 5'9" Respiratory Rate: 20 bpm Temperature: 36 .6 (C) / 97.9 (F) Weight: 159 lbs 02/09/2013 Blood Pressure 1: 110/68 Code: 8480-6 BMI: 21.9 Code: 89533-7 Heart Rate 1: 74 bpm Height: 5'9" Respiratory Rate: 22 bpm Temperature: 36 .8 (C) / 98.2 (F) Weight: 148 lbs 09/08/2010 Blood Pressure 1: 124/90 Code: 8480-6 BMI: 21.4 Code: 05475-2 Height: 5'10" Temperature: 36.4 (C) / 97.6 [...] Pelvic pain in female[ICD10: R10.2] Keyanna TALAMANTES [place] CPT-4: 86264 06/05/2019 ([id number]) OFFICE/OUTPATIENT VISIT EST Diagnosis: Left wrist pain[ICD10: M25.532] Diagnosis: Swelling of left upper extremity[ICD10: M79.89] Keyanna TALAMANTES [place] CPT-4: 12505 03/16/2019 ([id number]) NURSE/OUTPATIENT VISIT EST Diagnosis: Urinary tract infection[ICD10: N39.0] Josefa TALAMANTES [place] CPT-4: 56524 03/02/2019 ([id number]) NURSE/OUTPATIENT VISIT EST Diagnosis: Irregular menstruation, unspecified[ICD10: N92.6] Diagnosis: Urinary tract infection[ICD10: N39.0] Josefa TALAMANTES [place] CPT-4: 18123 02/16/2019 ([id number]) NURSE/OUTPATIENT VISIT EST Diagnosis: Irregular menstruation, unspecified[ICD10: N92.6] Josefa TALAMANTES [place] CPT-4: 21270 05/21/2018 ([id number]) OFFICE/OUTPATIENT VISIT EST Diagnosis: Irregular menstruation, unspecified[ICD10: N92.6] Diagnosis: Diseases of lips[ICD10: K13.0] Diagnosis: 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] Keyanna TALAMANTES [place] CPT-4: 35922 03/03/2018 ([id number]) NURSE/OUTPATIENT VISIT EST Diagnosis: Irregular menstruation, unspecified[ICD10: N92.6] Josefa TALAMANTES DO [facility] CPT-4: 76772 11/26/2017 ([id number]) OFFICE/OUTPATIENT VISIT EST Diagnosis: Irregular menstruation, unspecified[ICD10: N92.6] Josefa TALAMANTES DO [facility] CPT-4: 17249 08/27/2017 ([id number]) OFFICE/OUTPATIENT VISIT EST Diagnosis: Dysuria[ICD10: R30.0] Diagnosis: Irregular menstruation, unspecified[ICD10: N92.6] Josefa TALAMANTES DO [facility] CPT-4: 56540 06/06/2017 ([id number]) OFFICE/OUTPATIENT VISIT EST Diagnosis: Irregular menstruation, unspecified[ICD10: N92.6] Josefa TALAMANTES DO [facility] CPT-4: 16836 01/04/2017 ([id number]) PREV VISIT EST AGE 18-39 Diagnosis: Encounter for general adult medical examination without abnormal findings[ICD10: Z00.00] Diagnosis: Encounter for gynecological examination (general) (routine) without abnormal findings[ICD10: Z01.419] Diagnosis: Gastro-esophageal reflux disease without esophagitis[ICD10: K21.9] Diagnosis: Dysphagia, pharyngeal phase[ICD10: R13.13] Josefa TALAMANTES DO [facility] CPT-4: 57662 10/18/2016 ([id number]) OFFICE/OUTPATIENT VISIT EST Diagnosis: Irregular menstruation, unspecified[ICD10: N92.6] Josefa TALAMANTES DO [facility] CPT-4: 60728 10/12/2016 ([id number]) OFFICE/OUTPATIENT VISIT EST Diagnosis: Fever, unspecified[ICD10: R50.9] Diagnosis: Influenza due to identified novel influenza A virus with other respiratory manifestations[ICD10: J09.X2] Catrina Bran JOSEFA TALAMANTES DO [facility] CPT-4: 98228 08/08/2016 ([id number]) OFFICE/OUTPATIENT VISIT EST Diagnosis: Irregular menstruation, unspecified[ICD10: N92.6] Josefa TALAMANTES DO [facility] CPT-4: 86722 07/25/2016 ([id number]) OFFICE/OUTPATIENT VISIT EST Diagnosis: Right upper quadrant pain[ICD10: R10.11] Diagnosis: Unspecified abdominal pain[ICD10: R10.9] Josefa TALAMANTES DO [facility] CPT-4: 26506 05/15/2016 ([id number]) OFFICE/OUTPATIENT VISIT EST Diagnosis: Irregular menstruation, unspecified[ICD10: N92.6] Josefa TALAMANTES DO [facility] CPT-4: 61691 05/03/2016 ([id number]) OFFICE/OUTPATIENT VISIT EST Diagnosis: Irregular menstruation, unspecified[ICD10: N92.6] Josefa TALAMANTES DO [facility] CPT-4: 47632 02/20/2016 OFFICE/OUTPATIENT VISIT EST Diagnosis: Cutaneous abscess of buttock[ICD10: L02.31] Kitty Caldera JOSEFA TALAMANTES [facility] CPT-4: 07774 12/23/2015 ([id number]) OFFICE/OUTPATIENT VISIT EST Diagnosis: Irregular menstruation, unspecified[ICD10: N92.6] Josefa TALAMANTES DO [facility] CPT-4: 06534 11/07/2015 ([id number]) OFFICE/OUTPATIENT VISIT EST Diagnosis: Irregular menstruation, unspecified[ICD10: N92.6] Josefa TALAMANTES DO [facility] CPT-4: 67065 08/01/2015 ([id number]) OFFICE/OUTPATIENT VISIT EST Diagnosis: Irregular menstruation, unspecified[ICD10: N92.6] Josefa TALAMANTES DO [facility] CPT-4: 77685 05/11/2015 ([id number]) OFFICE/OUTPATIENT VISIT EST Diagnosis: Irregular menstruation, unspecified[ICD10: N92.6] Josefa TALAMANTES DO [facility] CPT-4: 39302 02/16/2015 OFFICE/OUTPATIENT VISIT EST Diagnosis: SINUSITIS, ACUTE[ICD9: 461.9] Malgorzata Janel JOSEFA TALAMANTES [facility] CPT-4: 42317 01/26/2015 ([id number]) OFFICE/OUTPATIENT VISIT EST Diagnosis: IRREGULAR MENSTRUATION[ICD9: 626.4] Josefa TALAMANTES [facility] CPT-4: 20265 11/29/2014 ([id number]) OFFICE/OUTPATIENT VISIT EST Diagnosis: IRREGULAR MENSTRUATION[ICD9: 626.4] Josefa TALAMANTES [facility] CPT-4: 13424 09/09/2014 ([id number]) OFFICE/OUTPATIENT VISIT EST Diagnosis: IRREGULAR MENSTRUATION[ICD9: 626.4] Diagnosis: General counseling and advice on contraceptive management[ICD9: V25.09] Diagnosis: Anxiety and depression[ICD9: 300.4] Malgorzata TALAMANTES [facility] CPT-4: 66126 06/16/2014 OFFICE/OUTPATIENT VISIT EST Diagnosis: Right upper quadrant pain[ICD9: 789.01] Malgorzata TALAMANTES [facility] CPT-4: 82819 01/28/2014 OFFICE/OUTPATIENT VISIT EST Diagnosis: Right upper quadrant pain[ICD9: 789.01] Malgorzata TALAMANTES [facility] CPT-4: 97940 12/10/2013 OFFICE/OUTPATIENT VISIT EST Diagnosis: Anxiety and depression[ICD9: 300.4] Malgorzata TALAMANTES [facility] CPT-4: 86479 10/20/2013 OFFICE/OUTPATIENT VISIT EST Diagnosis: Menorrhagia[ICD9: 626.2] Malgorzata VillanuevaErinjuanjo RIVERA [facility] CPT-4: 66119 10/07/2013 OFFICE/OUTPATIENT VISIT EST Diagnosis: IRREGULAR MENSTRUATION[ICD9: 626.4] Malgorzata TALAMANTES [facility] CPT-4: 33990 09/15/2013 OFFICE/OUTPATIENT VISIT EST Diagnosis: HEMATURIA NOS[ICD9: 599.70] Diagnosis: Abdominal discomfort in right upper quadrant[ICD9: 789.01] Malgorzata VillanuevaErinjuanjo TALAMANTES [facility] CPT-4: 43852 06/24/2013 ([id number]) OFFICE/OUTPATIENT VISIT EST Diagnosis: ABDOMINAL PAIN[ICD9: 789.00] Diagnosis: GERD[ICD9: 530.81] Josefa Talamantes JOSEFA TALAMANTES [place] CPT-4: 94799 03/05/2013 OFFICE/OUTPATIENT VISIT EST Diagnosis: General counseling and advice on contraceptive management[ICD9: V25.09] Diagnosis: IRREGULAR MENSTRUATION[ICD9: 626.4] Malgorzata TALAMANTES DO [facility] CPT-4: 57359 02/09/2013 ([id number]) OFFICE/OUTPATIENT VISIT GISEL TALAMANTES DO [facility] CPT-4: 69031 09/08/2010 ([id number]) OFFICE/OUTPATIENT VISIT GISEL TALAMANTES DO [employer] [facility] CPT-4: 43590 07/24/2010 Plan of Care Planned Activity Notes [...] ICD-10 : M25.532 03/16/2019 Appointment: Keyanna Mejía [address] [place] [address] Follow Up 03/16/2019 Appointment: Josefa Talamantes WPtel: [phone] 03/02/2019 Appointment: Josefa Talamantes WPtel: [phone] [place], [place] [phone] [place] INJECTION 02/16/2019 Appointment: Josefa Talamantes WPtel: [address] [place], [place] [phone] [place] INJECTION 05/21/2018 Visit Diagnosis Plan: Nontoxic [...] performed in office and negative. 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 and bring back to [...] ICD-10 : K13.0 03/03/2018 Appointment: Keyanna Mejía [address] [place] [address] [place] ACUTE ILLNESS 03/03/2018 Patient Education: Patient Medication Summary Completed 03/03/2018 Care Plan: US EXAM OF HEAD AND NECK thyroid LOIN C : 11638-5 Pending 03/03/2018 Appointment: Josefa Talamantes WPtel: [address] [place], [place] [phone] [place] CANCELED 02/27/2018 Appointment: Josefa Talamantes WPtel: [address] [place], [place] [phone] [place] INJECTION 11/26/2017 Patient Education: Patient Medication Summary Completed 11/26/2017 Appointment: Josefa Talamantes WPtel: [address] [place], [place] [phone] [place] INJECTION 08/27/2017 Patient Education: Patient Medication Summary Completed 08/27/2017 Appointment: Josefa Talamantes WPtel: [phone] [place], [place] [phone] [place] INJECTION 06/06/2017 Patient Education: Patient Medication Summary Completed 06/06/2017 Appointment: [facility] [phone] [facility] [place] [facility] 01/04/2017 Patient Education: Patient Medication Summary Completed 01/04/2017 Appointment: Jose[facility]antes [facility] [address] [facility] [place] 11/19 lm `sl 11/21 lm `sl NO SHOW 11/22/19 Patient Education: Patient Medication Summary Completed 10/22/2016 Care Plan: US EXAM OF HEAD AND NECK Thyroid Ultrasound LOIN C : 06951-8 Pending 10/22/2016 Visit Diagnosis Plan: Gastro-esophageal reflux [...] : R13.13 10/18/2016 Appointment: Josefa Talamantes WPtel: [phone] [place], [place] [phone] [place] 10/17 lm `sl Annual Well Visit 10/18/2016 Patient Education: Patient Medication Summary Completed 10/18/2016 Appointment: Josefa Talamantes [facility]el: [phone] [facility] [place] [facility]JE[facility] 10/12/2016 Patient Education: Patient Medication Summary Completed 10/12/2016 Visit Diagnosis Plan: Influenza due to i dentified novel influenza A virus with other respiratory manifestations Discussion: Flu A positive Rx as above Supportive care otherwise Contagious precautions discussed Notify kids' provider of exposure for their instructions ICD-9 : 488.02 ICD-10 : J09.X2 08/08/2016 Appointment: Catrina Bran [address] [place], [place] [phone] ACUTE ILLNESS 08/08/2016 Patient Education: Patient Medication Summary Completed 08/08/2016 Appointment: Josefa Talamantes WPtel: [address] [place], [place] [phone] [place] INJECTION 07/25/2016 Patient Education: Patient Medication Summary Completed 07/25/2016 Visit Plan: Finish abx and then recultur e 48hrs after completion Add levsin and zorvolex 05/15/2016 Appointment: Josefa Talamantes WPtel: [address] [place], [place] [phone] [place] / lm `sl 05/15 confirmed~ Hospital Follow Up 0 05/15/2016 Patient Education: Patient Medication Summary Completed 05/15/2016 Appointment: Catrina Bran [address] [place], [place] [phone] 05/09 admitted into the hospital last night~sl ACUTE ILLNESS 05/09/2016 Appointment: Josefa Talamantes WPtel: [address] [place], [place] [phone] [place] INJECTION 05/03/2016 Patient Education: Patient Medication Summary Completed 05/03/2016 Appointment: Josefa Talamanets WPtel: [address] [place], [place] [phone] [place] INJECTION 02/20/2016 Patient Education: Patient Medication [...] C&S obtained 12/23/2015 Appointment: Kitty Caldera WPtel: [id number] [place], [place] [phone] [place] ACUTE ILLNESS 12/23/2015 Patient Education: Patient Medication Summary Completed 12/23/2015 Appointment: Josefa Talamantes WPtel: [address] [place], [place] [phone] [place] INJECTION 11/07/2015 Patient Education: Patient Medication Summary Completed 11/07/2015 Appointment: Josefa Talamantes WPtel: [address] [place], [place] [phone] [place] INJECTION 08/01/2015 Patient Education: Patient Medication Summary Completed 08/01/2015 Appointment: Josefa Talamantes WPtel: [address] [place], [place] [phone] [place] INJECTION 05/11/2015 Patient Education: Patient Medication Summary Completed 05/11/2015 Appointment: Malgorzata Islas WPtel: [address] [place], [place] [phone] [place] PAP 04/05/2015 Appointment: Josefa Talamantes WPtel: [address] [place], [place] [phone] [place] INJECTION 02/16/2015 Patient Education: Patient Medication Summary Completed 02/16/2015 Visit Plan: Daily nasal saline rinses Fl onase nasal spray and daily Zyrtec Medrol dose pack Z-jhonathan as directed 01/26/2015 Appointment: Malgorzata Islas WPtel: [address] [place], [place] [phone] [place] ACUTE ILLNESS 01/26/2015 Patient Education: Patient Medication Summary Completed 01/26/2015 Appointment: Josefa Talamantes WPtel: [address] [place], [place] [phone] [place] INJECTION 11/29/2014 Patient Education: Patient Medication Summary Completed 11/29/2014 Appointment: Josefa Talamantes WPtel: [address] [place], [place] [phone] [place] INJECTION 09/09/2014 Patient Education: Patient Medication Summary Completed 09/09/2014 Appointment: Malgorzata Islas WPtel: [address] [place], [place] [phone] FOLLOW UP 06/16/2014 Patient Education: Patient Medication Summary Completed 06/16/2014 Appointment: JanelMalgorzata Hugh WPtel: [address] [place], [place] [id number] 06/02/14 appointment scheduled 06/03/14 no showed PAP 06/03/2014 Appointment: Malgorzata Islas WPtel: [address] [place], [place] [phone] FOLLOW UP 01/28/2014 Patient Education: Patient Medication Summary Completed 01/28/2014 Care Plan: COM[place] : [address]-4 Ordered 01/28/2014 Care Plan: AMYLASE Pending 4 Appointment: Malgorzata Islas WPtel: [address] [place], [place] [id number] FOLLOW UP 12/10/2013 Patient Education: Patient Medication Summary Completed 12/10/2013 Appointment: Malgorzata Islas WPtel: [address] [place], [place] [phone] 11/11 vm 11/12 No Show FOLLOW UP 11/12/2013 Appointment: Malgorzata Islas WPtel: [address] [place], [place] [phone] FOLLOW UP 10/20/2013 Patient Education: Patient Medication Summary Completed 10/20/2013 Visit Plan: Quantitative Hcg and CBC tod ay. Transvaginal/Transabdominal sonogram stat Discussed with RN OBSERVATION and BHCG 343 so will recheck in 1week as long as not worsening 10/07/2013 Appointment: Malgorzata Islas WPtel: [address] [place], [place] [phone] ACUTE ILLNESS 10/07/2013 Patient Education: Patient Medication Summary Completed 10/07/2013 Appointment: Malgorzata Islas WPtel: [phone] ACUTE ILLNESS 09/15/2013 Patient Education: Patient Medication Summary Completed 09/15/2013 Appointment: Malgorzata Islas WPtel: [address] [place] [address] ACUTE ILLNESS 06/24/2013 Patient Education: Patient Medication Summary Completed 06/24/2013 Appointment: Malgorzata Islas WPtel: [address] [place] [address] [place] appt was scheduled today then patient no showed the visit ACUTE ILLNESS 05/21/2013 Visit Plan: Check CMP, CBC, UA CT scan o f abdomen Omeprazole 03/05/2013 Appointment: Josefa Talamantes WPtel: [address] [place] [address] ACUTE ILLNESS 03/05/2013 Appointment: Josefa Talamantes WPtel: [address] [place] [address] 03/02 canceled, wrong patient FOLLOW UP Patient Education: Patient Medication Summary Completed 03/05/2013 Appointment: Malgorzata Islas WPtel: [address] [place] [address] ACUTE ILLNESS 02/09/2013 Patient Education: Patient Medication Summary Completed 02/09/2013 Appointment: Justine Ortega WPtel: [address] [place] [address] ACUTE ILLNESS 09/08/2010 Patient Education: Patient Medication Summary Completed 09/08/2010 Appointment: Justine Ortega WPtel: [address] [place] [address] PAP 08/08/2010 Appointment: Justine Ortega WPtel: [address] [place] [address] ACUTE ILLNESS 07/24/2010 Patient Education: Patient Medication Summary Completed 07/24/2010 Visit Plan: All warts shaved with 11-rekha de scalpel and then cryotherapy x3 Will followup with DNCB treatment 03/08/2010 Appointment: Ciarraflaco Josefa S. WPtel: [phone] [facility] ACUTE ILLNESS 03/08/2010 Patient Education: Patient Medication Summary Completed 03/08/2010 Appointment: Josefa Talamantes WPtel: [phone] [facility] PAP 09/14/2009 Referral: Roney Galloway WPtel: [address] [facility] 3 [id number] [place] Referral Initiated Referral: Brian Floyd WPtel: [address] [id number] [place] Referral Initiated Referral: Referral Initiated Instructions [...] CBC today. Transvaginal/Transabdominal sonogram stat Discussed with RN OBSERVATION and BHCG 343 so will recheck in [...]
--- OUTSIDE RECORDS SUMMARY | 2019-12-11 22:10 | XMS REPORT | CCD ---
Author Author Brenda Talamantes D.O. Organization [facility]SEFA [facility]ALAM[facility] DO [facility] Address [address] [place] [address] Phone Care Team Providers Care Cloud Software Engineer Name Role Phone Josefa Talamantes D.O., PP Unavailable CCM Unavailable Summary Purpose Interface Exchange Insurance Providers Payer name Policy type / Coverage type Covered libertarian ID Effective Begin Date Effective End Date [facility] [facility] [address] Insurance [id number] Unknown Family History Family History data not found Social History Social History Element Codes Description Effective Dates Tobacco history SNOMED CT: 926630647 Unknown if ever smoked 01/12 Allergies, Adverse [...] Fill Instructions ibuprofen 800 mg tablet RxNorm: 328380 1 Tablet(s) Oral Q8H as needed 03/16/2019 06/05/2019 Inactive Cipro 500 mg tablet RxNorm: 384177 1 Tablet(s) Oral two times a day 03/04/2019 03/11/2019 Inactive Cipro 500 mg tablet RxNorm: 879011 1 Tablet(s) Oral two times a day 03/04/2019 03/03/2019 Inactive Macrobid 100 mg capsule RxNorm: 273605 1 Capsule(s) Oral two ti mes a day 02/16/2019 02/15/2019 Inactive Macrobid 100 mg capsule RxNorm: 024136 1 Capsule(s) Oral two ti mes a [...] 11/24/2017 Inactive Pepcid 40 mg tablet RxNorm: 739003 1 Tablet(s) PO QD 10/18/201603/02 Inactive Depo-Provera 150 mg/mL intramuscular suspension RxNorm: 1000 128 Milliliter(s) 1 Milliliter(s) IM 10/10/2016 06/04/2017 Inactive Tamiflu 75 mg capsule RxNorm: 887843 1 Capsule(s) PO BID 08/08/2016 0 08/12/2016 Inactive Levsin 0.125 mg tablet RxNorm: 3640041 1 Tablet(s) PO TID for fl ank pain 05/15/2016 10/17/2016 Inactive Bactrim DS 800 mg-160 mg tablet RxNorm: 771106 1 Tablet(s) PO BID 0 12/23/2015 01/01/2016 Inactive mupirocin 2 % topical ointment RxNorm: 463483 Application TOP TID 0 12/23/2015 12/29/2015 Inactive Depo-Provera 150 mg/mL intramuscular suspension RxNorm: 1000 128 Milliliter(s) 1 Milliliter(s) IM 11/08/2015 10/09/2016 Inactive Xanax 0.25 mg tablet RxNorm: 134906 TAKE ONE-HALF TO ON E TABLET BY MOUTH NEEDED FOR ANXIETY 04/11/2015 05/10/2015 Inactive Generic For:X ANAX 0.25 MG TABLET 04/11/2015 2:54:57 PM Depo-Provera 150 mg/mL intramuscular suspension RxNorm: 1000 128 Milliliter(s) 1 Milliliter(s) IM 02/15/2015 11/07/2015 Inactive azithromycin 250 mg tablet RxNorm: 462297 2 Tablet(s) P O today, then one tablet on days 2 - 5 01/26/2015 12/22/2015 Inactive Medrol (Jhonathan) 4 mg tablets in a dose pack RxNorm: 696148 Tablet(s) P O 01/26/2015 12/22/2015 Inactive Depo-Provera 150 mg/mL intramuscular suspension RxNorm: 1000 128 1 Milliliter(s) IM 09/06/2014 02/15/2015 Inactive Xanax 0.25 mg tablet RxNorm: 930183 1/2 - 1 Tablet(s) PO as nee ded for anxiety 06/16/2014 04/12/2015 Inactive Zoloft 50 mg tablet RxNorm: 052155 1 Tablet(s) PO QD 06/16/201412/21 Inactive Flexeril [...] 2014 Inactive Xanax 0.25 mg tablet RxNorm: 594226 1/2 - 1 Tablet(s) PO as nee ded for anxiety 01/28/2014 06/15/2014 Inactive naproxen 500 mg tablet RxNorm: 771948 1 Tablet(s) PO BID 12/10/2013 0 01/08/2014 Inactive Zoloft 50 mg tablet RxNorm: 664145 1 Tablet(s) PO QD 12/10/201304/08 Inactive Xanax 0.25 mg tablet RxNorm: 479561 1/2 - 1 Tablet(s) PO as nee ded for anxiety 12/10/2013 01/27/2014 Inactive Xanax 0.25 mg tablet RxNorm: 153366 1 Tablet(s) PO Q8H 10/20/2013 Inactive Zoloft 50 mg tablet RxNorm: 641703 1/2 Tablet(s) PO x 6 days then on1 tablet daily 10/20/2013 11/18/2013 Inactive Loestrin Fe 20 (28) 1 mg-20 mcg tablet RxNorm: 6619297 1 Table t(s) PO QD 10/20/2013 05/03/2014 Inactive phenazopyridine 100 mg tablet RxNorm: 6304764 1 Tablet(s) PO Q8H 06/26/2013 Inactive Macrobid 100 mg capsule RxNorm: 963832 1 Capsule(s) PO BID 06/25/19 14 07/04/2013 Inactive phenazopyridine 100 mg tablet RxNorm: 8589749 1 Tablet(s) PO Q8H 06/24/2013 Inactive Macrobid 100 mg capsule RxNorm: 454703 1 Capsule(s) PO BID 07/25/19 11 08/02/2010 Inactive Apri 0.15 mg-30 mcg tablet RxNorm: 879817 1 Tablet(s) PO QD As directed. No Start Date 06/23/2013 Inactive omeprazole 40 mg capsule,delayed release RxNorm: 065328 1 Capsule(s) PO QD for stomach No Start Date 06/23/2013 Inactive naproxen 500 mg tablet RxNorm: 204475 1 Tablet(s) PO BID No Start D ate 06/15/2014 Inactive hydrocodone 10 mg-acetaminophen 325 mg tablet RxNorm: 076318 Tablet(s) PO as needed for pain No Start Date 12/22/2015 Inactive Zoloft 50 mg tablet RxNorm: 885536 1 Tablet(s) PO QD No Start Date Inactive hydrocodone 5 mg-acetaminophen 325 mg tablet RxNorm: 996691 1 Tablet(s) PO QID as needed for pain No Start Date 09/14/2013 Inactive Medication Administered No Medication Administered data Immunizations No Immunization data Results Observation Observation Code Item Item Code Result Date S ervice Location LIPASE 01075 LIPASE 14 IU/L 01/28/2014 Unknown COMPLETE BLOOD COUNT [id number] WBC 6.5 10e9/L 01/29/20 14 Unknown COMPLETE BLOOD COUNT [id number] RBC 4.54 10e12/L 2013 Unknown COMPLETE BLOOD COUNT [id number] HGB 12.1 g/dL 4 Unknown COMPLETE BLOOD COUNT [id number] HCT DET 38.0 % 4 Unknown COMPLETE BLOOD COUNT [id number] MCV 83.7 fL 4 Unknown COMPLETE BLOOD COUNT [id number] MCH 26.7 pg 4 Unknown COMPLETE BLOOD COUNT [id number] MCHC 31.8 g/dL 4 Unknown COMPLETE BLOOD COUNT [id number] PLT 218 10e9/L 01/29/20 14 Unknown COMPLETE BLOOD COUNT [id number] MPV 12.8 fL 4 Unknown COMPLETE BLOOD COUNT [id number] RACHNA % 56.5 % 4 Unknown COMPLETE BLOOD COUNT [id number] LY % 32.3 % 4 Unknown COMPLETE BLOOD COUNT [id number] MON % 8.6 % 4 Unknown COMPLETE BLOOD COUNT [id number] EOS % 2.1 % 4 Unknown COMPLETE BLOOD COUNT [id number] BASO % 0.5 % 4 Unknown COMPLETE BLOOD COUNT [id number] RDW 18.4 % 4 Unknown COMPLETE BLOOD COUNT [id number] ABS RACHNA 3.67 10e9/L 014 Unknown COMPLETE BLOOD COUNT [id number] ABS LYMPH 2.10 10e9/L 014 Unknown COMPLETE BLOOD COUNT [id number] ABS MONO 0.56 10e9/L 014 Unknown COMPLETE BLOOD COUNT [id number] ABS EOS 0.14 10e9/L 014 Unknown COMPLETE BLOOD COUNT [id number] ABS BASO 0.03 10e9/L 014 Unknown COMPLETE BLOOD COUNT [id number] RDW-SD 55.5 fL 4 Unknown COMPREHENSIVE METABOLIC 12449 AST 13 U/L 2013 Unknown COMPREHENSIVE METABOLIC 77335 ALT 7 IU/L 2013 Unknown COMPREHENSIVE METABOLIC 52862 BUN 8 MG/DL 2013 Unknown COMPREHENSIVE METABOLIC 99109 ALBUMIN 4.5 GM/DL 2013 Unknown COMPREHENSIVE METABOLIC 32487 CHLORIDE 106 MMOL/L 01/28 Unknown COMPREHENSIVE METABOLIC 92572 BILI TOT 0.4 MG/DL 2013 Unknown COMPREHENSIVE METABOLIC 46174 ALK PHOS 55 U/L 2013 Unknown COMPREHENSIVE METABOLIC 73579 SODIUM 138 MMOL/L 01/28 Unknown COMPREHENSIVE METABOLIC 49300 CREATININE 0.73 MG/DL 01/11 Unknown COMPREHENSIVE METABOLIC 99321 CALCIUM 9.9 MG/DL 2013 Unknown COMPREHENSIVE METABOLIC 40288 POTASSIUM 3.8 MMOL/L 01/28 Unknown COMPREHENSIVE METABOLIC 01443 PROT TOT 7.4 GM/DL 2013 Unknown COMPREHENSIVE METABOLIC 75872 Glucose 96 MG/DL 2013 Unknown COMPREHENSIVE METABOLIC 42919 BICARB 27 MMOL/L 2013 Unknown COMPREHENSIVE METABOLIC 79929 ANION GAP 5 MEQ/L 2013 Unknown AMYLASE 05400 AMYLASE 42 IU/L 01/28/2014 Unknown GFR CALC [id number] GFR AA >60 ML/MIN 01/28/2014 Unknown GFR CALC [id number] GFR NON-AA >60 ML/MIN 01/28/2014 Unknown Procedures Procedure Codes Date URINALYSIS NONAUTO W/O SCOPE CPT-4: 01876 06/05/2019 URINE CULTURE/ COLONY COUNT CPT-4: 27450 03/02/2019 THER/PROPH/DIAG INJ SC/IM CPT-4: 13916 02/16/2019 URINE CULTURE/ COLONY COUNT CPT-4: 82445 02/16/2019 URINALYSIS NONAUTO W/O SCOPE CPT-4: 61742 02/16/2019 URINE TEST CPT-4: 45807 02/16/2019 THER/PROPH/DIAG INJ SC/IM CPT-4: 29255 05/21/2018 THER/PROPH/DIAG INJ SC/IM CPT-4: 22712 11/26/2017 THER/PROPH/DIAG INJ SC/IM CPT-4: 67720 08/27/2017 THER/PROPH/DIAG INJ SC/IM CPT-4: 29811 06/06/2017 URINALYSIS NONAUTO W/O SCOPE CPT-4: 16134 06/06/2017 GC/CHLAMYDIA DNA ([facility]) CPT-4: 65728|10563 8 URINE CULTURE/ COLONY COUNT CPT-4: 29125 06/06/2017 THER/PROPH/DIAG INJ SC/IM CPT-4: 02259 01/04/2017 SPECIMEN HANDLING OFFICE-LAB CPT-4: 30931 10/18/2016 THER/PROPH/DIAG INJ SC/IM CPT-4: 25373 10/12/2016 INFLUENZA ASSAY W/OPTIC CPT-4: 57462 08/08/2016 THER/PROPH/DIAG INJ SC/IM CPT-4: 40380 07/25/2016 THER/PROPH/DIAG INJ SC/IM CPT-4: 30949 05/03/2016 THER/PROPH/DIAG INJ SC/IM CPT-4: 19285 02/20/2016 URINE TEST CPT-4: 79211 02/20/2016 AEROBIC WOUND CULTURE & STN CPT-4: 04161 12/23/2015 THER/PROPH/DIAG INJ SC/IM CPT-4: 28764 11/07/2015 URINE TEST CPT-4: 31176 11/07/2015 THER/PROPH/DIAG INJ SC/IM CPT-4: 98164 08/01/2015 THER/PROPH/DIAG INJ SC/IM CPT-4: 41975 05/11/2015 THER/PROPH/DIAG INJ SC/IM CPT-4: 31179 02/16/2015 THER/PROPH/DIAG INJ SC/IM CPT-4: 38170 11/29/2014 THER/PROPH/DIAG INJ SC/IM CPT-4: 60074 09/09/2014 URINE TEST CPT-4: 89535 06/16/2014 THER/PROPH/DIAG INJ SC/IM CPT-4: 05561 06/16/2014 ROUTINE VENIPUNCTURE CPT-4: 60849 10/07/2013 COMPLETE CBC W/AUTO DIFF WBC CPT-4: 93398 10/07/2013 CHORIONIC GONADOTROPIN TEST CPT-4: 53221 10/07/2013 URINE TEST CPT-4: 19339 09/15/2013 URINALYSIS NONAUTO W/O SCOPE CPT-4: 43121 06/24/2013 URINE CULTURE/ COLONY COUNT CPT-4: 32915 06/24/2013 URINE TEST CPT-4: 64120 09/08/2010 URINALYSIS NONAUTO W/O SCOPE CPT-4: 71239 07/24/2010 URINE CULTURE/ COLONY COUNT CPT-4: 31883 07/24/2010 DESTRUCT PREMALG LESION (Cryosurgery) CPT-4: 44738 DESTRUCT PREMALG LES 2-14 CPT-4: 75807 03/08/2010 Vital Signs Date Vital 06/05/2019 Blood Pressure 1: 131/82 Code: 8480-6 BMI: 26.3 Code: 23604-0 Heart Rate 1: 109 bpm Height: 5'9" Respiratory Rate: 16 bpm SpO2: 99% Tempera ture: 36.7 (C) / 98.1 (F) Weight: 178 lbs 03/16/2019 Blood Pressure 1: 132/86 Code: 8480-6 Heart Rate 1: 73 bpm SpO2: 99% Temperature: 36.6 (C) / 97.9 (F) Weight: 158 lbs 03/03/2018 Blood Pressure 1: 120/88 Code: 8480-6 BMI: 23.9 Code: 26764-2 Heart Rate 1: 81 bpm Height: 5'9" Respiratory Rate: 18 bpm SpO2: 99% Tempera ture: 36.1 (C) / 97.0 (F) Weight: 162 lbs 10/18/2016 Blood Pressure 1: 108/78 Code: 8480-6 BMI: 22.6 Code: 10654-1 Heart Rate 1: 100 bpm Height: 5'9" Respiratory Rate: 20 bpm SpO2: 98% Tempera ture: 37.1 (C) / 98.8 (F) Weight: 153 lbs 08/08/2016 Blood Pressure 1: 114/78 Code: 8480-6 Heart Rate 1: 102 bpm Respiratory Rate: 20 bpm SpO2: 98% Temperature: 36.4 (C) / 97.6 (F) We ight: 152 lbs 05/15/2016 Blood Pressure 1: 124/80 Code: 8480-6 BMI: 23.2 Code: 36647-3 Heart Rate 1: 100 bpm Height: 5'9" Respiratory Rate: 20 bpm Temperature: 37 .0 (C) / 98.6 (F) Weight: 157 lbs 12/23/2015 Blood Pressure 1: 124/78 Code: 8480-6 BMI: 23.0 Code: 84725-5 Heart Rate 1: 92 bpm Height: 5'9" Respiratory Rate: 20 bpm SpO2: 97% Tempera ture: 36.9 (C) / 98.5 (F) Weight: 156 lbs 01/26/2015 Blood Pressure 1: 11878 Code: 8480-6 BMI: 21.3 Code: 18429-9 Heart Rate 1: 100 bpm Height: 5'9" Respiratory Rate: 20 bpm SpO2: 97% Tempera ture: 36.6 (C) / 97.8 (F) Weight: 144 lbs 06/16/2014 Blood Pressure 1: 118/78 Code: 8480-6 BMI: 23.5 Code: 29591-1 Heart Rate 1: 78 bpm Height: 5'9" Respiratory Rate: 18 bpm Temperature: 36 .1 (C) / 97.0 (F) Weight: 159 lbs 01/28/2014 Blood Pressure 1: 124/78 Code: 8480-6 BMI: 23.2 Code: 36858-7 Heart Rate 1: 88 bpm Height: 5'9" Respiratory Rate: 22 bpm Temperature: 36 .1 (C) / 97.0 (F) Weight: 157 lbs 12/10/2013 Blood Pressure 1: 124/70 Code: 8480-6 BMI: 23.0 Code: 21895-0 Heart Rate 1: 82 bpm Height: 5'9" Respiratory Rate: 20 bpm Temperature: 36 .2 (C) / 97.2 (F) Weight: 156 lbs 10/20/2013 Blood Pressure 1: 118/82 Code: 8480-6 Heart Rate 1: 84 bpm Respiratory Rate: 22 bpm Temperature: 36.5 (C) / 97.7 (F) Weight: 150 lbs 10/07/2013 Blood Pressure 1: 120/80 Code: 8480-6 BMI: 22.2 Code: 87229-8 Heart Rate 1: 68 bpm Height: 5'9" Respiratory Rate: 22 bpm Temperature: 36 .2 (C) / 97.2 (F) Weight: 150 lbs 09/15/2013 Blood Pressure 1: 118/68 Code: 8480-6 BMI: 22.0 Code: 71110-5 Heart Rate 1: 78 bpm Height: 5'9" Respiratory Rate: 20 bpm Temperature: 36 .1 (C) / 97.0 (F) Weight: 149 lbs 06/24/2013 Blood Pressure 1: 112/74 Code: 8480-6 Heart Rate 1: 74 bpm Respiratory Rate: 20 bpm Temperature: 36.6 (C) / 97.9 (F) Weight: 150 lbs 03/05/2013 Blood Pressure 1: 126/88 Code: 8480-6 BMI: 23.5 Code: 05810-6 Heart Rate 1: 80 bpm Height: 5'9" Respiratory Rate: 20 bpm Temperature: 36 .6 (C) / 97.9 (F) Weight: 159 lbs 02/09/2013 Blood Pressure 1: 110/68 Code: 8480-6 BMI: 21.9 Code: 91784-4 Heart Rate 1: 74 bpm Height: 5'9" Respiratory Rate: 22 bpm Temperature: 36 .8 (C) / 98.2 (F) Weight: 148 lbs 09/08/2010 Blood Pressure 1: 124/90 Code: 8480-6 BMI: 21.4 Code: 79327-2 Height: 5'10" Temperature: 36.4 (C) / 97.6 [...] painful Encounters Encounter Performer Location Codes Date ([id number]) OFFICE/OUTPATIENT VISIT EST Diagnosis: Dysuria[ICD10: R30.0] Diagnosis: Pelvic pain in female[ICD10: R10.2] Keyanna STRANGE KATTY Waylon TALAMANTES DO [facility] CPT-4: 14810 06/05/2019 ([id number]) OFFICE/OUTPATIENT VISIT EST Diagnosis: Left wrist pain[ICD10: M25.532] Diagnosis: Swelling of left upper extremity[ICD10: M79.89] Keyanna TALAMANTES DO [facility] CPT-4: 75097 03/16/2019 ([id number]) NURSE/OUTPATIENT VISIT EST Diagnosis: Urinary tract infection[ICD10: N39.0] Josefa Thadgaetanoflaco MELANIA NOLVIA SergioMaria Teresa [facility] CPT-4: 70276 03/02/2019 ([id number]) NURSE/OUTPATIENT VISIT EST Diagnosis: Irregular menstruation, unspecified[ICD10: N92.6] Diagnosis: Urinary tract infection[ICD10: N39.0] Josefa SNELLELMA NOLVIA SergioMaria Teresa [facility] CPT-4: 14206 02/16/2019 ([id number]) NURSE/OUTPATIENT VISIT EST Diagnosis: Irregular menstruation, unspecified[ICD10: N92.6] Josefa Oneilgaetanoflaco PINTOJOSEFA SergioMaria Teresa [facility] CPT-4: 39567 05/21/2018 ([id number]) OFFICE/OUTPATIENT VISIT EST Diagnosis: Irregular menstruation, unspecified[ICD10: N92.6] Diagnosis: Diseases of lips[ICD10: K13.0] Diagnosis: 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] Keyanna HillMaria Teresa [facility] CPT-4: 25567 03/03/2018 ([id number]) NURSE/OUTPATIENT VISIT EST Diagnosis: Irregular menstruation, unspecified[ICD10: N92.6] Josefa Thadmamadou HELMS SergioMaria Teresa [facility] CPT-4: 39501 11/26/2017 ([id number]) OFFICE/OUTPATIENT VISIT EST Diagnosis: Irregular menstruation, unspecified[ICD10: N92.6] Josefa TALAMANTES DO [facility] CPT-4: 56319 08/27/2017 ([id number]) OFFICE/OUTPATIENT VISIT EST Diagnosis: Dysuria[ICD10: R30.0] Diagnosis: Irregular menstruation, unspecified[ICD10: N92.6] Josefa TALAMANTES DO [facility] CPT-4: 58052 06/06/2017 ([id number]) OFFICE/OUTPATIENT VISIT EST Diagnosis: Irregular menstruation, unspecified[ICD10: N92.6] Josefa TALAMANTES DO [facility] CPT-4: 42551 01/04/2017 ([id number]) PREV VISIT EST AGE 18-39 Diagnosis: Encounter for general adult medical examination without abnormal findings[ICD10: Z00.00] Diagnosis: Encounter for gynecological examination (general) (routine) without abnormal findings[ICD10: Z01.419] Diagnosis: Gastro-esophageal reflux disease without esophagitis[ICD10: K21.9] Diagnosis: Dysphagia, pharyngeal phase[ICD10: R13.13] Josefa TALAMANTES DO [facility] CPT-4: 41708 10/18/2016 ([id number]) OFFICE/OUTPATIENT VISIT EST Diagnosis: Irregular menstruation, unspecified[ICD10: N92.6] Josefa TALAMANTES DO [facility] CPT-4: 60376 10/12/2016 ([id number]) OFFICE/OUTPATIENT VISIT EST Diagnosis: Fever, unspecified[ICD10: R50.9] Diagnosis: Influenza due to identified novel influenza A virus with other respiratory manifestations[ICD10: J09.X2] Catrina Bran JOSEFA TALAMANTES DO [facility] CPT-4: 62908 08/08/2016 ([id number]) OFFICE/OUTPATIENT VISIT EST Diagnosis: Irregular menstruation, unspecified[ICD10: N92.6] Josefa TALAMANTES DO [facility] CPT-4: 75223 07/25/2016 ([id number]) OFFICE/OUTPATIENT VISIT EST Diagnosis: Right upper quadrant pain[ICD10: R10.11] Diagnosis: Unspecified abdominal pain[ICD10: R10.9] Josefa TALAMANTES DO [facility] CPT-4: 56351 05/15/2016 ([id number]) OFFICE/OUTPATIENT VISIT EST Diagnosis: Irregular menstruation, unspecified[ICD10: N92.6] Josefa TALAMANTES DO [facility] CPT-4: 51034 05/03/2016 ([id number]) OFFICE/OUTPATIENT VISIT EST Diagnosis: Irregular menstruation, unspecified[ICD10: N92.6] Josefa TALAMANTES DO [facility] CPT-4: 77556 02/20/2016 OFFICE/OUTPATIENT VISIT EST Diagnosis: Cutaneous abscess of buttock[ICD10: L02.31] Kitty Caldera JOSEFA TALAMANTES DO [facility] CPT-4: 61481 12/23/2015 ([id number]) OFFICE/OUTPATIENT VISIT EST Diagnosis: Irregular menstruation, unspecified[ICD10: N92.6] Josefa TALAMANTES DO [facility] CPT-4: 76223 11/07/2015 ([id number]) OFFICE/OUTPATIENT VISIT EST Diagnosis: Irregular menstruation, unspecified[ICD10: N92.6] Josefa TALAMANTES DO [facility] CPT-4: 02860 08/01/2015 ([id number]) OFFICE/OUTPATIENT VISIT EST Diagnosis: Irregular menstruation, unspecified[ICD10: N92.6] Josefa TALAMANTES DO [facility] CPT-4: 90097 05/11/2015 ([id number]) OFFICE/OUTPATIENT VISIT EST Diagnosis: Irregular menstruation, unspecified[ICD10: N92.6] Josefa TALAMANTES DO [facility] CPT-4: 02066 02/16/2015 OFFICE/OUTPATIENT VISIT EST Diagnosis: SINUSITIS, ACUTE[ICD9: 461.9] Malgorzata Janel JOSEFA TALAMANTES DO [facility] CPT-4: 29805 01/26/2015 ([id number]) OFFICE/OUTPATIENT VISIT EST Diagnosis: IRREGULAR MENSTRUATION[ICD9: 626.4] Josefa TALAMANTES [facility] CPT-4: 60620 11/29/2014 ([id number]) OFFICE/OUTPATIENT VISIT EST Diagnosis: IRREGULAR MENSTRUATION[ICD9: 626.4] Josefa TALAMANTES [facility] CPT-4: 21729 09/09/2014 ([id number]) OFFICE/OUTPATIENT VISIT EST Diagnosis: IRREGULAR MENSTRUATION[ICD9: 626.4] Diagnosis: General counseling and advice on contraceptive management[ICD9: V25.09] Diagnosis: Anxiety and depression[ICD9: 300.4] Malgorzata TALAMANTES [facility] CPT-4: 24893 06/16/2014 OFFICE/OUTPATIENT VISIT EST Diagnosis: Right upper quadrant pain[ICD9: 789.01] Malgorzata TALAMANTES [facility] CPT-4: 54526 01/28/2014 OFFICE/OUTPATIENT VISIT EST Diagnosis: Right upper quadrant pain[ICD9: 789.01] Malgorzata TALAMANTES [facility] CPT-4: 73842 12/10/2013 OFFICE/OUTPATIENT VISIT EST Diagnosis: Anxiety and depression[ICD9: 300.4] Malgorzata TALAMANTES [facility] CPT-4: 65518 10/20/2013 OFFICE/OUTPATIENT VISIT EST Diagnosis: Menorrhagia[ICD9: 626.2] Malgorzata RIVERA [facility] CPT-4: 00280 10/07/2013 OFFICE/OUTPATIENT VISIT EST Diagnosis: IRREGULAR MENSTRUATION[ICD9: 626.4] Malgorzata TALAMANTES [facility] CPT-4: 12357 09/15/2013 OFFICE/OUTPATIENT VISIT EST Diagnosis: HEMATURIA NOS[ICD9: 599.70] Diagnosis: Abdominal discomfort in right upper quadrant[ICD9: 789.01] Malgorzata TALAMANTES [facility] CPT-4: 39223 06/24/2013 ([id number]) OFFICE/OUTPATIENT VISIT EST Diagnosis: ABDOMINAL PAIN[ICD9: 789.00] Diagnosis: GERD[ICD9: 530.81] Josefa HELMS [facility] CPT-4: 89975 03/05/2013 OFFICE/OUTPATIENT VISIT EST Diagnosis: General counseling and advice on contraceptive management[ICD9: V25.09] Diagnosis: IRREGULAR MENSTRUATION[ICD9: 626.4] Malgorzata [facility] CPT-4: 89901 02/09/2013 ([id number]) OFFICE/OUTPATIENT VISIT EST [facility] CPT-4: 12041 09/08/2010 ([id number]) OFFICE/OUTPATIENT VISIT EST Justine ONEILNDER DO [facility] CPT-4: 18584 07/24/2010 Plan of Care Planned Activity Notes [...] : M25.532 03/16/2019 Appointment: Keyanna Mejía [address] [place], [place] [id number] Follow Up 03/16/2019 Appointment: Josefa Talamantes WPtel: [address] [place], [place] [phone] [place] UA 03/02/2019 Appointment: Josefa Talamantes WPtel: [address] [place], [place] [phone] [place] INJECTION 02/16/2019 Appointment: Josefa Talamantesteashely: [address] [place], [place] [phone] [place] INJECTION 05/21/2018 Visit Diagnosis Plan: Diseases [...] ICD-10 : N92.6 03/03/2018 Appointment: Keyanna Mejía [address] [place], [place] [phone] [place] ACUTE ILLNESS 03/03/2018 Patient Education: Patient Medication Summary Completed 03/03/2018 Care Plan: US EXAM OF HEAD AND NECK thyroid LOIN C : 09394-8 Pending 03/03/2018 Appointment: Josefa Talamantes WPtel: [address] [place], [place] [phone] [place] CANCELED 02/27/2018 Appointment: Josefa Talamantes WPtel: [address] [place], [place] [phone] [place] INJECTION 11/26/2017 Patient Education: Patient Medication Summary Completed 11/26/2017 Appointment: Josefa Talamantes WPtel: [address] [place], [place] [phone] [place] INJECTION 08/27/2017 Patient Education: Patient Medication Summary Completed 08/27/2017 Appointment: Josefa Talamantes WPtel: [address] [place], [place] [phone] [place] INJECTION 06/06/2017 Patient Education: Patient Medication Summary Completed 06/06/2017 Appointment: Josefa Talamantes WPtel: [address] [place], [place] [phone] [place] INJECTION 01/04/2017 Patient Education: Patient Medication Summary Completed 01/04/2017 Appointment: Josefa Talamantes WPtel: [address] [place], [place] [phone] [place] 11/19 lm `sl 11/21 lm `sl NO SHOW 11/22/19 17 Patient Education: Patient Medication Summary Completed 10/22/2016 Care Plan: US EXAM OF HEAD AND NECK Thyroid Ultrasound LOIN C : 35258-9 Pending 10/22/2016 Visit Diagnosis Plan: Dysphagia, pharyngeal [...] : Z01.419 10/18/2016 Appointment: Josefa Talamantes WPtel: [address] [place], [place] [phone] 10/17 `sl Annual Well Visit 10/18/2016 Patient Education: Patient Medication Summary Completed 10/18/2016 Appointment: Josefa Talamantes WPtel: [address] [place], [place] [phone] [place] INJECTION 10/12/2016 Patient Education: Patient Medication Summary Completed 10/12/2016 Visit Diagnosis Plan: Influenza due to i dentified novel influenza A virus with other respiratory manifestations Discussion: Flu A positive Rx as above Supportive care otherwise Contagious precautions discussed Notify kids' provider of exposure for their instructions ICD-9 : 488.02 ICD-10 : J09.X2 08/08/2016 Appointment: Catrina Bran [address] [place], [place] [id number] ACUTE ILLNESS 08/08/2016 Patient Education: Patient Medication Summary Completed 08/08/2016 Appointment: Josefa Talamantes WPtel: [address] [place] [phone] [place] INJECTION 07/25/2016 Patient Education: Patient Medication Summary Completed 07/25/2016 Visit Plan: Finish abx and then recultur e 48hrs after completion Add levsin and zorvolex 05/15/2016 Appointment: Josefa Talamantes WPtel: [address] [place], [place] [phone] [place] 05/14 lm `sl 05/15 confirmed~ Hospital Follow Up 0 05/15/2016 Patient Education: Patient Medication Summary Completed 05/15/2016 Appointment: Julia Branfany [address] [place], [place] [id number] 05/09 admitted into the hospital last night~ ACUTE ILLNESS 05/09/2016 Appointment: Josefa Talamantes WPtel: [address] [place], [place] [id number] [place] INJECTION 05/03/2016 Patient Education: Patient Medication Summary Completed 05/03/2016 Appointment: Josefa Talamantes WPtel: [address] [place], [place] [id number] [place] INJECTION 02/20/2016 Patient Education: Patient Medication Summary Completed 02/20/2016 Visit Plan: ERx for Bactrim and Bactroba n Called to [facility]am 50mg 1 po q 4-6 hours prn pain #20 Warm moist heat to area qid Watch for s/s of worsening, go to [facility] over weekend Discussed SE of meds including s/s of SJS which would require an ER visit C&S obtained 12/23/2015 Appointment: Kitty Caldera WPtel: [phone] [id number] ACUTE ILLNESS 12/23/2015 Patient Education: Patient Medication Summary Completed 12/23/2015 Appointment: Josefa Talamantestel: [phone] [id number] [place] INJECTION 11/07/2015 Patient Education: Patient Medication Summary Completed 11/07/2015 Appointment: Josefa Talamantes WPtel: [address] [place], [place] [phone] [place] INJECTION 08/01/2015 Patient Education: Patient Medication Summary Completed 08/01/2015 Appointment: Josefa Talamantes WPtel: [address] [place], [place] [id number] [place] INJECTION 05/11/2015 Patient Education: Patient Medication Summary Completed 05/11/2015 Appointment: Malgorzata Islas WPtel: [address] [place], [place] [phone] [place] PAP 04/05/2015 Appointment: Josefa Talamantes WPtel: [address] [place], [place] [phone] [place] INJECTION 02/16/2015 Patient Education: Patient Medication Summary Completed 02/16/2015 Visit Plan: Daily nasal saline rinses Fl onase nasal spray and daily Zyrtec Medrol dose pack Z-jhonathan as directed 01/26/2015 Appointment: Malgorzata Islas WPtel: [address] [place], [place] [phone] [place] ACUTE ILLNESS 01/26/2015 Patient Education: Patient Medication Summary Completed 01/26/2015 Appointment: Josefa Talamantes WPtel: [address] [place], [place] [id number] [place] INJECTION 11/29/2014 Patient Education: Patient Medication Summary Completed 11/29/2014 Appointment: Josefa Talamantes WPtel: [address] [place], [place] [phone] [place] INJECTION 09/09/2014 Patient Education: Patient Medication Summary Completed 09/09/2014 Appointment: Malgorzata Islas WPtel: [address] [place], [place] [phone] [place] FOLLOW UP 06/16/2014 Patient Education: Patient Medication Summary Completed 06/16/2014 Appointment: Malgorzata Islas WPtel: [address] [place], [place] [phone] 06/02/14 appointment scheduled 06/03/14 no showed PAP 06/03/2014 Appointment: Malgorzata Islas WPtel: [address] [place] [address] FOLLOW UP 01/28/2014 Patient Education: Patient Medication Summary Completed 01/28/2014 Care Plan: [place] : [address]-1 Ordered 01/28/2014 Care Plan: AMYLASE Pending 4 Appointment: Malgorzata Islas WPtel: [address] [place] [address] FOLLOW UP 12/10/2013 Patient Education: Patient Medication Summary Completed 12/10/2013 Appointment: Malgorzata Islas WPtel: [address] [place] [address] 11/11 vm 11/12 No Show FOLLOW UP 11/12/2013 Appointment: Malgorzata Islas WPtel: [address] [place] [address] FOLLOW UP 10/20/2013 Patient Education: Patient Medication Summary Completed 10/20/2013 Visit Plan: Quantitative Hcg and CBC tod ay. Transvaginal/Transabdominal sonogram stat Discussed with MASSOTHERAPIST and BHCG 343 so will recheck in 1week as long as not worsening 10/07/2013 Appointment: Malgorzata Islas WPtel: [address] [place], [place] [phone] ACUTE ILLNESS 10/07/2013 Patient Education: Patient Medication Summary Completed 10/07/2013 Appointment: Malgorzata Islas WPtel: [address] [place], [place] [phone] ACUTE ILLNESS 09/15/2013 Patient Education: Patient Medication Summary Completed 09/15/2013 Appointment: Malgorzata Islas WPtel: [address] [place], [place] [phone] ACUTE ILLNESS 06/24/2013 Patient Education: Patient Medication Summary Completed 06/24/2013 Appointment: Malgorzata Islas WPtel: [address] [place], [place] [phone] appt was scheduled today then patient no showed the visit ACUTE ILLNESS 05/21/2013 Visit Plan: Check CMP, CBC, UA CT scan o f abdomen Omeprazole 03/05/2013 Appointment: Josefa Talamantes WPtel: [address] [place], [place] [phone] ACUTE ILLNESS 03/05/2013 Appointment: Josefa Talamantes WPtel: [address] [place], [place] [phone] 03/02 canceled, wrong patient FOLLOW UP Patient Education: Patient Medication Summary Completed 03/05/2013 Appointment: Malgorzata Islas WPtel: [address] [place], [place] [phone] ACUTE ILLNESS 02/09/2013 Patient Education: Patient Medication Summary Completed 02/09/2013 Appointment: Justine Ortega WPtel: [address] [place], [place] [phone] ACUTE ILLNESS 09/08/2010 Patient Education: Patient Medication Summary Completed 09/08/2010 Appointment: Justine Ortega WPtel: [address] [place], [place] [phone] PAP 08/08/2010 Appointment: Justine Ortega WPtel: [address] [place], [place] [phone] ACUTE ILLNESS 07/24/2010 Patient Education: Patient Medication Summary Completed 07/24/2010 Visit Plan: All warts shaved with 11-rekha de scalpel and then cryotherapy x3 Will followup with DNCB treatment 03/08/2010 Appointment: Josefa Talamantes WPtel: [address] [place], [place] [phone] ACUTE ILLNESS 03/08/2010 Patient Education: Patient Medication Summary Completed 03/08/2010 Appointment: Josefa Talamantes WPtel: [phone] [id number] [place] PAP 09/14/2009 Referral: Roney Galloway WPtel: [address] [facility] 3 [id number] [place] Referral Initiated Referral: Brian Floyd WPtel: [address] [id number] [place] Referral Initiated Referral: Referral Initiated Instructions [...] CBC today. Transvaginal/Transabdominal sonogram stat Discussed with MASSOTHERAPIST and BHCG 343 so will recheck in [...]
--- OUTSIDE RECORDS SUMMARY | 2019-12-11 22:10 | XMS REPORT | Continuity of Care Document ---
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 (number/volume) 1. 2 10*3 0.0-1.0 Automated eosinophil count 0.1 10*3/uL 0 .0-0.3 Automated blood basophil count (count/volume) 0.0 10*3/uL 0.0-0.1 Comprehensive metabolic panel - 05/10/16 05:37 Serum or plasma sodium measurement (moles/volume) 135 mmol/L 135-145 Serum or plasma potassium measurement (moles/volume) 4.0 mmol/L 3.6-5.0 Serum or plasma chloride measurement (moles/volume) 108 mmol/L 98-107 Carbon dioxide 20 mmol/L 21-32 Serum or plasma anion gap determination (moles/volume) 7 mmol/L 5-14 Serum or plasma urea nitrogen measurement (mass/volume ) 4 mg/dL 7-18 Serum or plasma creatinine measurement (mass/volume) 0.64 mg/dL 0.60-1.30 Serum or plasma urea nitrogen/creatinine mass ratio 6 NRG Serum or plasma creatinine measurement w ith calculation of estimated glomerular filtration rate > NRG Serum or plasma glucose measurement (mass/volume) 101 mg/dL 70-105 Serum or plasma calcium measurement (mass/volume) 9.2 mg/dL 8.5-10.1 Serum or plasma total bilirubin measurement (mass/volu me) 0.5 mg/dL 0.1-1.0 Serum or plasma alkaline phosphatase trell surement (enzymatic activity/volume) 70 U/L 40-136 Serum or plasma aspartate aminotransfera se measurement (enzymatic activity/volume) 35 U/L 5-34 Serum or plasma alanine aminotransferase measurement (enzymatic activity/volume) 48 U/L 0-55 Serum or plasma protein measurement (mass/volume) 6.4 g/dL 6.4-8.2 Serum or plasma albumin measurement (mass/volume) 3.8 g/dL 3.2-4.5 Complete blood count (CBC) with automate d white blood cell (WBC) differential - 12/11/19 21:28 Blood leukocytes automated count (number/volume) 13.6 10*3/uL 4.3-11.0 Blood erythrocytes automated count (number/volume) 4.80 10*6/uL 4.35-5.85 Venous blood hemoglobin measurement (mass/volume) 14.9 g/dL 11.5-16.0 Blood hematocrit (volume fraction) 43 % 35-52 Automated erythrocyte mean corpuscular volume 90 [ foz_us] 80-99 Automated erythrocyte mean corpuscular h emoglobin (mass per erythrocyte) 31 pg 25-34 Automated erythrocyte mean corpuscular h emoglobin concentration measurement (mass/volume) 35 g/dL 32-36 Automated erythrocyte distribution width ratio 13. 9 % 10.0- 14.5 Automated blood platelet count (count/volume) 230 10*3/uL 130-400 Automated blood platelet mean volume measurement 11.3 [foz_us] 7.4-10.4 Automated blood neutrophils/100 leukocytes 78 % 42-75 Automated blood lymphocytes/100 leukocytes 15 % 12-44 Blood monocytes/100 leukocytes 7 % 0-12 Automated blood eosinophils/100 leukocytes 0 % 0-10 Automated blood basophils/100 leukocytes 0 % 0-10 Blood neutrophils automated count (number/volume) 10.6 10*3 1.8-7.8 Blood lymphocytes automated count (number/volume) 2.0 10*3 1.0-4.0 Blood monocytes automated count (number/volume) 1. 0 10*3 0.0-1.0 Automated eosinophil count 0.0 10*3/uL 0 .0-0.3 Automated blood basophil count (count/volume) 0.0 10*3/uL 0.0-0.1 Serum or plasma choriogonadotropin (preg radha test) detection - 12/11/19 21:28 Serum or plasma choriogonadotropin ( test) de tection POSITIVE NEGATIVE Complete urinalysis with reflex to cultu re - 12/11/19 21:32 Urine color determination YELLOW NRG Urine clarity determination CLEAR NR G Urine pH measurement by test strip 6.5 5-9 Specific gravity of urine by test strip 1.025 1.016-1.022 Urine protein assay by test strip, semi-quantitative 1+ NEGATIVE Urine glucose detection by automated test strip NE GATIVE NEGATIVE Erythrocytes detection in urine sediment by light micr oscopy TRACE-I NEGATIVE Urine ketones detection by automated test strip 2+ NEGATIVE Urine nitrite detection by test strip POSITIVE NEGATIVE Urine total bilirubin detection by test strip NEGA TIVE NEGATIVE Urine urobilinogen measurement by automated test strip (mass/volume) 0.2 mg/dL < = 1.0 Urine leukocyte esterase detection by dipstick 1+ NEGATIVE Automated urine sediment erythrocyte cou nt by microscopy (number/high power field) [HPF] NRG Automated urine sediment leukocyte count by microscopy (number/high power field) [HPF] NRG Bacteria detection in urine sediment by light microsco py MODERATE NRG Squamous epithelial cells detection in u rine sediment by light microscopy 10-25 NRG Crystals detection in urine sediment by light microsco py NONE NRG Casts detection in urine sediment by light microscopy NONE NRG Mucus detection in urine sediment by light microscopy MODERATE NRG Complete urinalysis with reflex to culture YES NRG Encounters ACCT No. Visit Date/Time Discharge Status Pt. Type Provider Facility Loc./Unit Complaint 05/201703/16/2019 08:00:23 03/16/2019 23:59: 59 CLS Outpatient Josefa Talamantes [id number] 06/05/2019 08:59:00 Document Registration [id number] 11/25/2019 14:02:00 020 23:59:59 CLS Outpatient KEYANNA IRAHETA MATERIAL CHASER [facility] RAD DENSE BREAST TI SSUE,NODULE LEFT BREAST [id number] 03/15/2019 15:15:00 019 16:14:00 DIS Outpatient ASHTYN JOYNER MATERIAL CHASER [facility] ER FALL/L WRIST INJ [id number] 03/06/2018 08:21:00 018 23:59:59 CLS Outpatient KEYANNA IRAHETA MATERIAL CHASER [facility] RAD FOLLOW UP THYRO ID NODULES [id number] 10/29/2016 14:11:00 017 23:59:59 CLS Outpatient JOSEFA TALAMANTES DO [facility] RAD R94.6 [id number] 05/08/2016 20:17:00 016 12:30:00 DIS Inpatient JOSEFA TALAMANTES DO [facility] 4TH SEPSIS,PYELONEP HRITIS [id number] 10/14/2013 11:54:00 014 16:55:00 DIS Outpatient KATHIE KHAN MD [facility] SDC MISSED [id number] 10/13/2013 15:40:00 014 23:59:59 CLS Outpatient KEVIN HOLLEY MD [facility] LAB POSSIBLE PREG TEST,VAG BLEEDING [id number] 10/07/2013 15:23:00 014 23:59:59 CLS Outpatient JOSEFA TALAMANTES DO [facility] LAB MISCARRIAGE [id number] 10/07/2013 13:50:00 014 23:59:59 CLS Outpatient LUIS EDUARDO RUDOLPH [facility] RAD UTERINE BLEEDI NG [id number] 08/26/2013 05:36:00 014 07:53:00 DIS Emergency IASBELL BARRIENTOS MD [facility] ER VOMITING,5WKS P REG [id number] 08/25/2013 09:00:00 11:48:00 DIS Outpatient KEVIN HOLLEY MD [facility] WSo DEHYDRATION [id number] 04/13/2013 14:55:00 00:01:00 DIS Outpatient TALIA CARDENAS MD [facility] LAB STONES [id number] 06/24/2013 15:28:00 23:59:59 CLS Outpatient LUIS EDUARDO RUDOLPH [facility] RAD RT SIDE PAIN, HEMATURIA [id number] 03/13/2013 10:45:00 00:01:00 DIS Outpatient TALIA CARDENAS MD [facility] RAD STONES [id number] 04/13/2013 13:50:00 23:59:59 CLS Outpatient TALIA CARDENAS MD [facility] RAD POST ESWL [id number] 03/25/2013 10:32:00 14:59:00 DIS Outpatient TALIA CARDENAS MD [facility] SDC BILATERAL RENAL STONES [id number] 03/20/2013 08:08:00 23:59:59 CLS Outpatient TALIA CARDENAS MD [facility] PREOP BILATERAL RENAL STONE [id number] 03/06/2013 08:41:00 23:59:59 CLS Outpatient JOSEFA TALAMANTES DO [facility] RAD ABD PAIN, HX OF KIDNEY STONES [id number] 10/30/2012 09:25:00 15:55:00 DIS Outpatient JOSE J QUAN MD [facility] GALLSTONES [id number] 10/27/2012 09:10:00 23:59:59 CLS Outpatient JOSE J QUAN MD [facility] PREOP CHOLELITHIASIS [id number] 10/08/2012 08:12:00 013 23:59:59 CLS Outpatient LEYDI DAY, KEVIN Cavazos [facility] RAD RIGHT SIDED FLANK PAIN [id number] 12/11/2019 21:07:[address] Emergency GIACOMO DAY, CAROLE Wong [facility] ER N/V 4-5 WKS PREG [id number] 07/13/2013 00:00:00 Document Registration [id number] 06/12/2013 00:00:00 Document Registration [id number] 05/01/2012 20:10:00 Document Registration [id number] 04/28/2012 08:51:00 Document Registration [id number] 03/30/2012 10:00:00 Document Registration [id number] 02/17/2012 18:38:00 Document Registration [id number] 02/17/2012 17:27:00 Document Registration [id number] 11/14/2011 04:49:00 Document Registration [id number] 10/02/2011 22:30:00 Document Registration [id number] 05/02/2011 05:55:00 Document Registration [id number] 04/24/2011 11:15:00 Document Registration [id number] 12/22/2010 10:58:00 Document Registration [id number] 10/10/2010 03:01:00 Document Registration [id number] 09/29/2010 09:37:00 Document Registration [id number] 09/18/2010 00:15:00 Document Registration [id number] 09/16/2010 14:05:00 Document Registration [id number] 09/15/2010 10:44:00 Document Registration [id number] 07/12/2010 06:01:00 Document Registration [id number] 07/11/2010 15:56:00 Document Registration [id number] 07/07/2010 17:25:00 Document Registration [id number] 07/07/2010 00:43:00 Document Registration [id number] 10/23/2019 18:40:00 10/23/2019 23:59:5 9 CLS Outpatient KENYA SHANE [facility]
[2019-12-11] MEDS ORDERED: ONDA4TAB11 SL (22:43)
[2019-12-11] MEDS ORDERED: PROM25SU44 RC (22:43)
[2019-12-11] MEDS ORDERED: CEPH-507 PO (22:43)
[2019-12-11] MEDS ORDERED: ONDANSETRON 4 MG/2 ML (SDV) Z0FRAN IVP ONE (22:45)
[2019-12-11] MEDS ORDERED: RX-ONDANSETRON 4 MG ODT (ZOFRAN) PPK #4 SL STA (22:47)
[2019-12-11 22:58] VITALS: BP 125/92
== END 2019-12-11 22:58 | disposition home or self-care (01) ==
LOC: EDUNIT# 21:05 → ER 21:07
DX: O21.9 Vomiting of pregnancy, unspecified (principal); O23.41 Unspecified infection of urinary tract in pregnancy, first trimester; O26.891 Other specified pregnancy related conditions, first trimester; R19.7 Diarrhea, unspecified; Z3A.01 Less than 8 weeks gestation of pregnancy
CPT/HCPCS: 36415; 80053; 81000; 83735; 84703; 85025; 87077; 87088; 87186

== ENCOUNTER 2019-12-13 06:51 | Emergency (ER) | payer MEDICAID ==
[~2019-12-13] VITALS: Ht 175.2 cm; Wt 70.3 kg
[~2019-12-13 06:51] MED LIST changes: +CEPH-507 PO; +ONDA4TAB11 SL; +PROM25SU44 RC
--- OUTSIDE RECORDS SUMMARY | 2019-12-13 07:07 | XMS REPORT | Continuity of Care Document ---
Author Organization Unknown Address Unknown Phone Unavailable Allergies Active Description Code Type Severity Reaction Onset Reported/Identified Relationship to Patient Clinical Status Yes No Known Drug Allergies [id number] Drug Allergy Unknown N/A 10/27/2012 Medications There [...] BON Y PELV OBSTRUCT-DELIV 05/05/2011 Ot 661.21 [place] INERT NEC-DELIV 05/05/2011 Ot V02.51 LILY UP B STREPT CARRIER/SUSPECTED CARRIER 05/05/2011 Ot V06.1 [id number], COMBINED [ 05/05/2011 Ot V06.4 DLP-QHLZWV-LAZWX-RUBELLA 05/05/2011 Ot V27.0 DELI JANUSZ-SINGLE LIVEBORN 10/03/2011 [...] 787.01 NAUSEA WITH VOMITING 10/14/2013 BILL DAY, KATIHE Aguilar Ot 634.91 SPON ABORT UNCOMPL-INC 10/14/2013 KATHIE KHAN MD Ot V74.8 SCREEN-BACTERIAL DIS NEC 04/27/2014 Ot 592.1 04/27/2014 Ot V72.83 04/27/2014 Ot 620.2 04/27/2014 Ot 649.63 04/27/2014 Ot 649.63 10/06/2014 Ot 592.1 10/06/2014 Ot V72.83 10/06/2014 Ot 620.2 10/06/2014 Ot 649.63 10/06/2014 Ot 649.63 10/28/2014 Ot 592.1 10/28/2014 Ot V72.83 10/28/2014 Ot 620.2 10/28/2014 Ot 649.63 10/28/2014 Ot 649.63 04/16/2016 Ot 649.63 [place] SIZE DATE DISCREPANCY, ANTEPARTU 05/08/2016 Ot 649.63 [place] SIZE DATE DISCREPANCY, ANTEPARTU 05/08/2016 Ot [...] CALCULUS NOS 05/08/2016 VANLUIS EDUARDO HELM M CERTIFIED FLIGHT INSTRUCTOR Ot 592.0 CALCULUS OF KIDNEY 05/08/2016 VANBECELAERE, LUIS EDUARDO M CERTIFIED FLIGHT INSTRUCTOR Ot 789.09 ABDOMINAL PAIN, OTHER SPECIFIED SITE 05/08/2016 Ot 592.9 URIN MERRY CALCULUS NOS 05/08/2016 VANBECELAERE, LUIS EDUARDO M CERTIFIED FLIGHT INSTRUCTOR Ot 641.93 ANTEPART HEM NOS-ANTEPAR 05/08/2016 JOSEFA TALAMANTES DO Ot 634.90 SPON ABORT UNCOMPL-UNSP 05/08/2016 KEVIN HOLLEY MD Ot 641. 93 ANTEPART HEM NOS-ANTEPAR 05/09/2016 Ot 649.63 [place] SIZE DATE DISCREPANCY, ANTEPARTU 05/09/2016 Ot [...] CALCULUS NOS 05/09/2016 VANLUIS EDUARDO HELM M CERTIFIED FLIGHT INSTRUCTOR Ot 592.0 CALCULUS OF KIDNEY 05/09/2016 LUIS EDUARDO RUDOLPH M CERTIFIED FLIGHT INSTRUCTOR Ot 789.09 ABDOMINAL PAIN, OTHER SPECIFIED SITE 05/09/2016 Ot 592.9 URIN MERRY CALCULUS NOS 05/09/2016 JEWELSELAERE, LUIS EDUARDO M CERTIFIED FLIGHT INSTRUCTOR Ot 641.93 ANTEPART HEM NOS-ANTEPAR 05/09/2016 JOSEFA TALAMANTES DO S Ot 634.90 SPON ABORT UNCOMPL-UNSP 05/09/2016 LEYDI DAY, KEVIN Cavazos Ot 641. 93 ANTEPART HEM NOS-ANTEPAR 05/10/2016 BLAIR TALAMANTES DOLINE S Ot B96.20 UNSP ESCHERICHIA COLI THE CAUSE OF DI 05/10/2016 BLAIR TALAMANTES DOLINE S Ot N10 ACUTE PYELONEPHRITIS 05/10/2016 BLAIR TALAMANTES DOLINE S Ot N20.0 CALCULUS OF KIDNEY 06/01/2016 Ot 649.63 [place] SIZE DATE DISCREPANCY, ANTEPARTU 10/25/2016 Ot 285.9 ANEM IA NOS 10/25/2016 Ot 648.23 ANE LEATHA-ANTEPARTUM 10/25/2016 Ot 654.23 PRE V DELIVERY, ANTEPARTUM COND 10/25/2016 Ot V72.63 PRE -PROCEDURAL LABORATORY EXAMINATION 10/25/2016 Ot V74.8 SCRE EN-BACTERIAL DIS NEC 10/25/2016 KEVIN HOLLEY MD Ot 574. 20 CHOLELITHIASIS NOS 10/25/2016 [...] MERRY CALCULUS NOS 10/25/2016 VANLUIS EDUARDO HELM CERTIFIED FLIGHT INSTRUCTOR Ot 592.0 CALCULUS OF KIDNEY 10/25/2016 VANBECLUIS EDUARDO GARCIA M CERTIFIED FLIGHT INSTRUCTOR Ot 789.09 ABDOMINAL PAIN, OTHER SPECIFIED SITE 10/25/2016 Ot 592.9 URIN MERRY CALCULUS NOS 10/25/2016 LUIS EDUARDO RUDOLPH CERTIFIED FLIGHT INSTRUCTOR Ot 641.93 ANTEPART HEM NOS-ANTEPAR 10/25/2016 JOSEFA [...] MERRY CALCULUS NOS 03/05/2018 SUSHANTRUBILUIS EDUARDO GARCIA CERTIFIED FLIGHT INSTRUCTOR Ot 592.0 CALCULUS OF KIDNEY 03/05/2018 SUSHANTRUBILUIS EDUARDO GARCIA M CERTIFIED FLIGHT INSTRUCTOR Ot 789.09 ABDOMINAL PAIN, OTHER SPECIFIED SITE 03/05/2018 Ot 592.9 URIN MERRY CALCULUS NOS 03/05/2018 SUSHANTRUBILUIS EDUARDO GARCIA M CERTIFIED FLIGHT INSTRUCTOR Ot 641.93 ANTEPART HEM NOS-ANTEPAR 03/05/2018 ORENDER DO, JOSEFA S Ot 634.90 SPON ABORT UNCOMPL-UNSP 03/05/2018 LEYDI DAY, KEVIN Cavazos Ot 641. 93 ANTEPART HEM NOS-ANTEPAR 03/05/2018 ORENDER DO, JOSEFA S Ot E04.1 NONTOXIC SINGLE THYROID NODULE 03/05/2018 ORENDER DO, JOSEFA S Ot R94.6 ABNORMAL RESULTS OF THYROID FUNCTION OLINDA 03/11/2018 JULY IRAHETAYSON R FINISHED CARPET INSPECTOR Ot E04.2 NONTOXIC MULTINODULAR GOITER 03/20/2018 KEYANNA IRAHETA R FINISHED CARPET INSPECTOR Ot E04.2 NONTOXIC MULTINODULAR GOITER 03/15/2019 KLAUDIA LUIS EDUARDO M CERTIFIED FLIGHT INSTRUCTOR Ot 641.93 ANTEPART HEM NOS-ANTEPAR 03/15/2019 ORENDER DO, JOSEFA S Ot 634.90 SPON ABORT UNCOMPL-UNSP 03/15/2019 LEYDI DAY, KEVIN Cavazos Ot 641. 93 ANTEPART HEM NOS-ANTEPAR 03/15/2019 ORENDER DO, JOSEFA S Ot E04.1 NONTOXIC SINGLE THYROID NODULE 03/15/2019 ORENDER DO, JOSEFA S Ot R94.6 ABNORMAL RESULTS OF THYROID FUNCTION OLINDA 03/15/2019 JULY IRAHETAYSON R FINISHED CARPET INSPECTOR Ot E04.2 NONTOXIC MULTINODULAR GOITER 03/15/2019 JEWELSLAZARO GARCIASA M CERTIFIED FLIGHT INSTRUCTOR Ot 641.93 ANTEPART HEM NOS-ANTEPAR 03/15/2019 ORENDER [...] Orender, Josefa S. 11/26/2019 ESEQUIEL, KEYANNA R FINISHED CARPET INSPECTOR Ot N63.10 UNSPECIFIED LUMP IN THE RIGHT BREAST, UN 11/26/2019 ESEQUIEL, KEYANNA R FINISHED CARPET INSPECTOR Ot N63.20 UNSPECIFIED LUMP IN THE LEFT [...] culture - 05/08/16 18:55 Bacterial urine culture [id number] NRG COLONY COUNT >100,000/ML NRG FTX;REPORTABLE SENSITIVITY [...] OF GROWTH Isolated NR Bacterial blood culture [id number] [facility] Bacterial blood culture - 05/08/16 20:25 Bacterial blood culture NG [facility] Complete blood count (CBC) with [...] choriogonadotropin ( test) de tection POSITIVE NEGATIVE Comprehensive metabolic panel - 12/11/19 21:28 Serum or plasma sodium measurement (moles/volume) 139 mmol/L 135-145 Serum or plasma potassium measurement (moles/volume) 4.0 mmol/L 3.6-5.0 Serum or plasma chloride measurement (moles/volume) 106 mmol/L 98-107 Carbon dioxide 19 mmol/L 21-32 Serum or plasma anion gap determination (moles/volume) 14 mmol/L 5-14 Serum or plasma urea nitrogen measurement (mass/volume ) 10 mg/dL 7-18 Serum or plasma creatinine measurement (mass/volume) 0.66 mg/dL 0.60-1.30 Serum or plasma urea nitrogen/creatinine mass ratio 15 NRG Serum or plasma creatinine measurement w ith calculation of estimated glomerular filtration rate > NRG Serum or plasma glucose measurement (mass/volume) 106 mg/dL 70-105 Serum or plasma calcium measurement (mass/volume) 10.2 mg/dL 8.5-10.1 Serum or plasma total bilirubin measurement (mass/volu me) 0.8 mg/dL 0.1-1.0 Serum or plasma alkaline phosphatase trell surement (enzymatic activity/volume) 58 U/L 40-136 Serum or plasma aspartate aminotransfera se measurement (enzymatic activity/volume) 20 U/L 5-34 Serum or plasma alanine aminotransferase measurement (enzymatic activity/volume) 31 U/L 0-55 Serum or plasma protein measurement (mass/volume) 7.9 g/dL 6.4-8.2 Serum or plasma albumin measurement (mass/volume) 4.7 g/dL 3.2-4.5 Magnesium - 12/11/19 21:28 Magnesium 2.6 mg/dL 1.6-2.4 Complete urinalysis with reflex to cultu re [...] 03/16/2019 23:59: 59 CLS Outpatient Josefa Talamantes [id number] 06/05/2019 08:59:00 Document Registration [id number] 12/11/2019 21:07:00 22:58:00 DIS Emergency GIACOMO DAY, CAROLE Wong [facility] ER N/V 4-5 WKS PRE G [id number] 11/25/2019 14:02:00 23:59:59 CLS Outpatient KEYANNA IRAHETA APRN [facility] RAD DENSE BREAST TI SSUE,NODULE LEFT BREAST [id number] 03/15/2019 15:15:00 019 16:14:00 DIS Outpatient JOYNERASHTYN FINISHED CARPET INSPECTOR [facility] ER FALL/L WRIST INJ [id number] 03/06/2018 08:21:00 018 23:59:59 CLS Outpatient KEYANNA IRAHETA FINISHED CARPET INSPECTOR [facility] RAD FOLLOW UP THYRO ID NODULES [id number] 10/29/2016 14:11:00 017 23:59:59 CLS Outpatient JOSEFA TALAMANTES DO [facility] RAD R94.6 [id number] 05/08/2016 20:17:00 016 12:30:00 DIS Inpatient JOSEFA TALAMANTES DO [facility] 4TH SEPSIS,PYELONEP HRITIS [id number] 10/14/2013 11:54:00 014 16:55:00 DIS Outpatient KATHIE KHAN MD [facility] SDC MISSED [id number] 10/13/2013 15:40:00 014 23:59:59 CLS Outpatient KEVIN HOLLEY MD [facility] LAB POSSIBLE PREG TEST,VAG BLEEDING [id number] 10/07/2013 15:23:00 014 23:59:59 CLS Outpatient JOSEFA TALAMANTES DO [facility] LAB MISCARRIAGE [id number] 10/07/2013 13:50:00 014 23:59:59 CLS Outpatient LUIS EDUARDO RUDOLPH [facility] RAD UTERINE BLEEDI NG [id number] 08/26/2013 05:36:00 014 07:53:00 DIS Emergency ISABELL BARRIENTOS MD [facility] ER VOMITING,5WKS P REG [id number] 08/25/2013 09:00:00 014 11:48:00 DIS Outpatient KEVIN HOLLEY MD [facility] WSo DEHYDRATION [id number] 04/13/2013 14:55:00 00:01:00 DIS Outpatient TALIA CARDENAS MD [facility] LAB STONES [id number] 06/24/2013 15:28:00 23:59:59 CLS Outpatient KLAUDIALUIS EDUARDO GERTRUDE Yun [facility] RAD RT SIDE PAIN, HEMATURIA [id number] 03/13/2013 10:45:00 00:01:00 DIS Outpatient TALIA CARDENAS MD [facility] RAD STONES [id number] 04/13/2013 13:50:00 23:59:59 CLS Outpatient TALIA CARDENAS MD [facility] RAD POST ESWL [id number] 03/25/2013 10:32:00 14:59:00 DIS Outpatient TALIA CARDENAS MD [facility] SDC BILATERAL RENAL STONES [id number] 03/20/2013 08:08:00 23:59:59 CLS Outpatient TALIA CARDENAS MD [facility] PREOP BILATERAL RENAL STONE [id number] 03/06/2013 08:41:00 23:59:59 CLS Outpatient JOSEFA TALAMANTES DO [facility] RAD ABD PAIN, HX OF KIDNEY STONES [id number] 10/30/2012 09:25:00 15:55:00 DIS Outpatient JOSE J QUAN MD [facility] SDC GALLSTONES [id number] 10/27/2012 09:10:00 23:59:59 CLS Outpatient JOSE J QUAN MD [facility] PREOP CHOLELITHIASIS [id number] 10/08/2012 08:12:00 23:59:59 CLS Outpatient KEVIN HOLLEY MD [facility] RAD RIGHT SIDED FLANK PAIN [id number] 07/13/2013 00:00:00 Document Registration [id number] 06/12/2013 00:00:00 Document Registration [id number] 05/01/2012 20:10:00 Document Registration [id number] 04/28/2012 08:51:00 Document Registration [id number] 03/30/2012 10:00:00 Document Registration [id number] 02/17/2012 18:38:00 Document Registration [id number] 02/17/2012 17:27:00 Document Registration [id number] 11/14/2011 04:49:00 Document Registration [id number] 10/02/2011 22:30:00 Document Registration [id number] 05/02/2011 05:55:00 Document Registration [id number] 04/24/2011 11:15:00 Document Registration [id number] 12/22/2010 10:58:00 Document Registration [id number] 10/10/2010 03:01:00 Document Registration [id number] 09/29/2010 09:37:00 Document Registration [id number] 09/18/2010 00:15:00 Document Registration [id number] 09/16/2010 14:05:00 Document Registration [id number] 09/15/2010 10:44:00 Document Registration [id number] 07/12/2010 06:01:00 Document Registration [id number] 07/11/2010 15:56:00 Document Registration [id number] 07/07/2010 17:25:00 Document Registration [id number] 07/07/2010 00:43:00 Document Registration [id number] 10/23/2019 18:40:00 10/23/2019 23:59:5 9 [facility] KENYA SHANE LAC [facility]
--- NOTE | 2019-12-13 07:16 | ED GU-Female ---
General Chief Complaint: Female Reproductive Stated Complaint: 6 WKS PREG,CRAMPING & BLOODY DISCHARGE Source: patient Exam Limitations: no limitations History of Present Illness Date Seen by Provider: Dec 13, 2019 Time Seen by Provider: 07:16 Initial Comments 29-year-old female who is 6 weeks and 6 days . She presents with some cramping that started last night with some mild vaginal bleeding. Patient was seen here 2 days ago with some nausea vomiting and urinary tract infection. She was started on Keflex. She reports she's taking that as directed. Today she noticed some cramping in the right and mid lower abdomen/pelvis. She reports she's having some bleeding with it. She denies any fevers chills. Patient is a . Allergies and Home Medications Allergies Coded Allergies: No Known Drug Allergies (Unverified , 10/27/12) Home Medications Cefdinir 300 Mg Capsule, 300 MG PO BID Prescribed by: ANALIA XAVIER on 05/10/16 1125 Cephalexin 500 Mg Capsule, 500 MG PO TID Prescribed by: CAROLE BERUMEN on 12/11/192242 Hydrocodone/Acetaminophen 1 Each Tablet, 1 TAB PO Q6H Prescribed by: ASHTYN JOYNER on 03/15/19 1605 Ibuprofen 800 Mg Tablet, 800 MG PO Q8H PRN for PAIN Prescribed by: ANALIA XAVIER on 05/10/16 1126 Medroxyprogesterone Acetate 150 Mg/1 Ml Vial, 150 MG INJ EVERY 3 MONTHS, (Reported) Ondansetron 4 Mg Tab.rapdis, 4 MG SL Q4H PRN for NAUSEA/VOMITING Prescribed by: CAROLE BERUMEN on 12/11/192242 Promethazine HCl 25 Mg Supp.rect, 25 MG RC Q6H PRN for NAUSEA/VOMITING Prescribed by: CAROLE BERUMEN on 12/11/192242 Patient Home Medication List Home Medication List Reviewed: Yes Review of Systems Review of Systems Constitutional: No chills, No fever Respiratory: No cough, No short of breath Cardiovascular: No chest pain, No palpitations Gastrointestinal: No abdominal pain, No constipation, No diarrhea Musculoskeletal: no symptoms reported Skin: no symptoms reported Psychiatric/Neurological: No Symptoms Reported Endocrine: No Symptoms Reported Hematologic/Lymphatic: No Symptoms Reported Past Lgyecgi-Fbiirz-Tehgcd Hx Past Med/Social Hx: Reviewed Nursing Past Med/Soc Hx Patient Social History Type Used: Cigarettes Recent Foreign Travel: No Contact w/Someone Who Travel: No Recent Hopitalizations: No Seasonal Allergies Seasonal Allergies: No Past Medical History Surgeries: Yes (KIDNEY STONES) Adenoidectomy, Section, Gallbladder, Tonsillectomy Respiratory: No Cardiac: No Neurological: No Reproductive Disorders: No Sexually Transmitted Disease: No Genitourinary: Yes Kidney Stones Gastrointestinal: No Musculoskeletal: No Endocrine: No Cancer: No Psychosocial: No Integumentary: No Blood Disorders: No Adverse Reaction/Blood Tranf: No Family Medical History Blood coagulation disorder 19 MOTHER Diabetes mellitus 19 MOTHER FH: liver cancer GRANDFATHER Physical Exam Vital Signs Vital Signs - First Documented 12/13/19 07:10 Temp 36.4 Pulse 87 Resp 20 B/P (MAP) 128/84 (99) Pulse Ox 98 O2 Delivery Room Air Capillary Refill : Height, Weight, BMI Height: 5'9.00" Weight: 157lbs. 0.0oz. 71.672036zd; 23.00 BMI Method:Stated General Appearance: WD/WN, no apparent distress Neck: full range of motion Cardiovascular: normal peripheral pulses, regular rate, rhythm Respiratory: lungs clear, normal breath sounds Gastrointestinal: soft, tenderness (mild right lower abdomen/pelvis and suprapubic. No rebound or guarding,. No peritoneal) Extremities: normal range of motion, normal capillary refill Neurologic/Psychiatric: alert, normal mood/affect, oriented x 3 Skin: normal color, warm/dry Progress/Results/Core Measures Suspected Sepsis SIRS Temperature: Pulse: Respiratory Rate: Blood Pressure / Mean: Results/Orders Lab Results Laboratory Tests Test 12/13/19 07:28 Range/Units Human Chorionic Gonadotropin, Quant 08440 H <5 MIU/ML My Orders Orders - CHLOÉ RAYMUNDO DO Hcg,Quantitative (12/13/19 07:24) Vital Signs/I&O 12/13/19 12/13/19 07:10 08:05 Temp 36.4 36.4 Pulse 87 86 Resp 20 20 B/P (MAP) 128/84 (99) 125/85 (99) Pulse Ox 98 98 O2 Delivery Room Air Room Air Capillary Refill : Progress Note : Time: 07:46 Progress Note Plan of care bedside ultrasound performed by me did show an intrauterine with a heartbeat. I did however discuss with patient that the exam is very limited. That this does not prevent her from having a threatened miscarriage at this time. We do not have ultrasound available today. We will make an outpatient order for her to get an ultrasound if possible tomorrow. She should follow-up with her primary care provider and OB for further evaluation. If the bleeding gets acutely worse for the cramping severely worse she should return to the ER. Patient stable and discharged home. Departure Impression Primary Impression: Threatened miscarriage in early Disposition: HOME, SELF-CARE Condition: Stable Departure-Patient Inst. Referrals: ANALIA XAVIER DO (PCP/Family) Primary Care Physician Patient Instructions: Threatened Miscarriage (DC), Bleeding In Early Add. Discharge Instructions: Follow-up with your primary care provider and your certified hyperbaric technician this is possible this week All discharge instructions reviewed with patient and/or family. Voiced understanding. CHLOÉ RAYMUNDO DO Dec 13, 2019 07:16
[2019-12-13 08:05] VITALS: BP 125/85
== END 2019-12-13 08:08 | disposition home or self-care (01) ==
LOC: EDUNIT# 06:51 → ER 06:54
DX: O20.0 Threatened abortion (principal); Z3A.01 Less than 8 weeks gestation of pregnancy
CPT/HCPCS: 36415; 84702

== ENCOUNTER → 2019-12-14 | Outpatient (CLI) | payer MEDICAID ==
--- NOTE | 2019-12-14 11:57 | Diagnostic Imaging Report ---
PROCEDURE: US OB SINGLE FETUS <14 WKS. TECHNIQUE: Multiple real-time grayscale images were obtained over the gravid uterus in various projections. INDICATION: Bleeding and nausea. There is an intrauterine gestational sac containing a pole consistent with 7 weeks 5 days gestation. heart rate was recorded at 149 bpm. There is an area of jerome-gestational sac hemorrhage. Adnexal evaluation demonstrates a 2 cm right ovarian cyst. No significant free fluid is seen. Left ovary is unremarkable. IMPRESSION: Single live IUP 7 weeks 5 days gestational age. The estimated date of confinement sonographically is 07/27/2020. Note is made of a small jerome-gestational sac hemorrhage. Dictated by: Dictated on workstation # [id number]
== END ==
LOC: RAD 11:00
PROVIDERS: ATTEND Student in an Organized Health Care Education/Training Program
DX: O46.91 Antepartum hemorrhage, unspecified, first trimester (principal); Z3A.01 Less than 8 weeks gestation of pregnancy
CPT/HCPCS: 76801

== ENCOUNTER → 2021-05-25 | Outpatient (CLI) | payer MEDICAID | LOC: LABNPT 06:11 | PROVIDERS: ATTEND Family Medicine | DX: U07.1 COVID-19 (principal) | CPT/HCPCS: 87636 ==

== ENCOUNTER 2022-03-31 10:42 | Emergency (ER) | payer MEDICAID ==
[~2022-03-31] VITALS: Ht 175 cm; Wt 70.0 kg
[2022-03-31 11:15] LABS: BASOPHILS # (AUTO) 0.1 10^3/uL (0.0-0.1); BASOPHILS % (AUTO) 1 % (0-10); EOSINOPHILS # (AUTO) 0.1 10^3/uL (0.0-0.3); EOSINOPHILS % (AUTO) 1 % (0-10); HEMATOCRIT 43 % (35-52); HEMOGLOBIN 14.9 g/dL (11.5-16.0); LYMPHOCYTES # (AUTO) 2.7 10^3/uL (1.0-4.0); LYMPHOCYTES % (AUTO) 38 % (12-44); MEAN CORPUSCULAR HEMOGLOBIN 32 pg (25-34); MEAN CORPUSCULAR HGB CONC 35 g/dL (32-36); MEAN CORPUSCULAR VOLUME 90 fL (80-99); MEAN PLATELET VOLUME 11.4 fL (9.0-12.2); MONOCYTES # (AUTO) 0.5 10^3/uL (0.0-1.0); MONOCYTES % (AUTO) 7 % (0-12); NEUTROPHILS # (AUTO) 3.8 10^3/uL (1.8-7.8); NEUTROPHILS % (AUTO) 53 % (42-75); PLATELET COUNT 197 10^3/uL (130-400); WHITE BLOOD COUNT 7.1 10^3/uL (4.3-11.0)
[2022-03-31 11:18] LABS: ALBUMIN 4.4 GM/DL (3.2-4.5)
[2022-03-31 11:19] LABS: POTASSIUM 3.8 MMOL/L (3.6-5.0)
[2022-03-31 11:20] LABS: CALCIUM 9.5 MG/DL (8.5-10.1)
[2022-03-31 11:21] LABS: TOTAL PROTEIN 7.3 GM/DL (6.4-8.2)
[2022-03-31 11:22] LABS: BILIRUBIN,URINE NEGATIVE (NEGATIVE); CLARITY,URINE SL CLOUDY; COLOR,URINE YELLOW; GLUCOSE, URINE (UA) NEGATIVE (NEGATIVE); KETONES,URINE NEGATIVE (NEGATIVE); LEUKOCYTE ESTERASE ,URINE NEGATIVE (NEGATIVE); NITRITE,URINE NEGATIVE (NEGATIVE); PROTEIN,URINE NEGATIVE (NEGATIVE)
[2022-03-31 11:23] LABS: BILIRUBIN,TOTAL 0.5 MG/DL (0.1-1.0)
[2022-03-31 11:25] LABS: CREATININE SERUM 0.85 MG/DL (0.60-1.30)
--- NOTE | 2022-03-31 11:30 | ED Abdominal Pain ---
General Chief Complaint: Abdominal/GI Problems Stated Complaint: RIGHT SIDE PAIN Nursing Triage Note: PT TO ED W/ C/O RT SIDE ABD PAIN INTERMITTENT X2 WKS, WORSE TODAY. REPORTS HX OF KIDNEY STONES. NO OTHER C/O VOICED History of Present Illness Date Seen by Provider: Mar 31, 2022 Time Seen by Provider: 11:05 Initial Comments Patient is a 32-year-old female who presents to the emergency department with approximately 2 weeks of intermittent right flank and right-sided abdominal p ain. She presents to the emergency department today stating the pain has been more constant and severe over the last 12 to 24 hours. She took some Tylenol yesterday but has taken nothing for the pain today. Denies any urinary symptoms. No nausea/vomiting/diarrhea. Endorses a history of kidney stones in the past. She has not had a fever. Currently takes Depo-Provera and has i rregular periods. No recent abdominal trauma. She has a remote history of cholecystectomy. Allergies and Home Medications Allergies Coded Allergies: No Known Drug Allergies (Unverified , 10/27/12) Patient Home Medication List Home Medication List Reviewed: Yes Cefdinir (Cefdinir) 300 Mg Capsule, 300 MG PO BID Prescribed by: ANALIA XAVIER on 05/10/16 1125 Cephalexin (Keflex) 500 Mg Capsule, 500 MG PO TID Prescribed by: CAROLE BERUMEN on 12/11/19 224 Hydrocodone/Acetaminophen (Hydrocodone/Acetaminophen 5 MG/325 MG TAB) 1 Each Tablet, 1 TAB PO Q6H Prescribed by: ASHTYN JOYNER on 03/15/19 1605 Ibuprofen (Ibuprofen) 800 Mg Tablet, 800 MG PO Q8H PRN for PAIN Prescribed by: ANALIA XAVIER on 05/10/16 1126 Medroxyprogesterone Acetate (Medroxyprogesterone Acetate) 150 Mg/1 Ml Vial, 150 MG INJ EVERY 3 MONTHS, (Reported) Entered as Reported by: LAURITA LEONARD on 05/09/16 0902 Ondansetron (Ondansetron Odt) 4 Mg Tab.rapdis, 4 MG SL Q4H PRN for NAUSEA/VOMITING Prescribed by: CAROLE BERUMEN on 12/11/19 2243 Promethazine HCl (Promethazine Suppository) 25 Mg Supp.rect, 25 MG RC Q6H PRN for NAUSEA/VOMITING Prescribed by: CAROLE BERUMEN on 12/11/19 3159 Review of Systems Review of Systems Constitutional: no symptoms reported EENTM: No Symptoms Reported Respiratory: No Symptoms Reported Cardiovascular: No Symptoms Reported Gastrointestinal: See HPI, Abdominal Pain Genitourinary: See HPI, Flank Pain Musculoskeletal: no symptoms reported Skin: no symptoms reported Psychiatric/Neurological: No Symptoms Reported Endocrine: No Symptoms Reported Hematologic/Lymphatic: No Symptoms Reported Past Bkjcizy-Mytgeh-Fdvwzw Hx Seasonal Allergies Seasonal Allergies: No Past Medical History Surgeries: Yes (KIDNEY STONES) Adenoidectomy, Section, Gallbladder, Tonsillectomy Respiratory: No Cardiac: No Neurological: No Reproductive Disorders: No Sexually Transmitted Disease: No Genitourinary: Yes Kidney Stones Gastrointestinal: No Musculoskeletal: No Endocrine: No Cancer: No Psychosocial: No Integumentary: No Blood Disorders: No Adverse Reaction/Blood Tranf: No Family Medical History Blood coagulation disorder 19 MOTHER Diabetes mellitus 19 MOTHER FH: liver cancer GRANDFATHER Physical Exam Vital Signs Vital Signs - First Documented 03/31/22 11:03 Temp 36.3 Pulse 100 Resp 20 B/P (MAP) 135/96 (109) Pulse Ox 100 Capillary Refill : Less Than 3 Seconds Height/Weight/BMI Height: 5'9.00" Weight: 157lbs. 0.0oz. 71.253057se; 22.00 BMI Method:Stated General Appearance: WD/WN, no apparent distress HEENT: PERRL/EOMI, normal ENT inspection, TMs normal, pharynx normal Neck: non-tender, full range of motion, supple, normal inspection Respiratory: chest non-tender, lungs clear, normal breath sounds, no respiratory distress Cardiovascular: regular rate, rhythm Gastrointestinal: normal bowel sounds, soft, no organomegaly, tenderness (RUQ TTP) Extremities: normal range of motion, non-tender, normal inspection, no pedal edema, no calf tenderness Back: normal inspection, no vertebral tenderness Neurologic/Psychiatric: no motor/sensory deficits, alert, normal mood/affect, oriented x 3 Skin: normal color, warm/dry Progress/Results/Core Measures Results/Orders Lab Results Laboratory Tests Test 03/31/22 10:50 03/31/22 11:00 Range/Units Urine Color YELLOW Urine Clarity SL CLOUDY Urine pH 6.0 5-9 Urine Specific [place] 1.025 H 1.016-1.022 Urine Protein NEGATIVE NEGATIVE Urine Glucose (UA) NEGATIVE NEGATIVE Urine Ketones NEGATIVE NEGATIVE Urine Nitrite NEGATIVE NEGATIVE Urine Bilirubin NEGATIVE NEGATIVE Urine Urobilinogen 0.2 < = 1.0 MG/DL Urine Leukocyte Esterase NEGATIVE NEGATIVE Urine RBC (Auto) 3+ H NEGATIVE Urine RBC 25-50 H /HPF Urine WBC 0-2 /HPF Urine Squamous Epithelial Cells 25-50 H /HPF Urine Crystals NONE /LPF Urine Bacteria MODERATE H /HPF Urine Casts NONE /LPF Urine Mucus SMALL H /LPF Urine Culture Indicated NO Urine Test NEGATIVE NEGATIVE White Blood Count 7.1 4.3-11.0 10^3/uL Red Blood Count 4.70 3.80-5.11 10^6/uL Hemoglobin 14.9 11.5-16.0 g/dL Hematocrit 43 35-52 % Mean Corpuscular Volume 90 80-99 fL Mean Corpuscular Hemoglobin 32 25-34 pg Mean Corpuscular Hemoglobin Concent 35 32-36 g/dL Red Cell Distribution Width 12.7 10.0-14.5 % Platelet Count 197 130-400 10^3/uL Mean Platelet Volume 11.4 9.0-12.2 fL Immature Granulocyte % (Auto) 0 % Neutrophils (%) (Auto) 53 42-75 % Lymphocytes (%) (Auto) 38 12-44 % Monocytes (%) (Auto) 7 0-12 % Eosinophils (%) (Auto) 1 0-10 % Basophils (%) (Auto) 1 0-10 % Neutrophils # (Auto) 3.8 1.8-7.8 10^3/uL Lymphocytes # (Auto) 2.7 1.0-4.0 10^3/uL Monocytes # (Auto) 0.5 0.0-1.0 10^3/uL Eosinophils # (Auto) 0.1 0.0-0.3 10^3/uL Basophils # (Auto) 0.1 0.0-0.1 10^3/uL Immature Granulocyte # (Auto) 0.0 0.0-0.1 10^3/uL Sodium Level 141 135-145 MMOL/L Potassium Level 3.8 3.6-5.0 MMOL/L Chloride Level 110 H 98-107 MMOL/L Carbon Dioxide Level 19 L 21-32 MMOL/L Anion Gap 12 5-14 MMOL/L Blood Urea Nitrogen 10 7-18 MG/DL Creatinine 0.85 0.60-1.30 MG/DL Estimat Glomerular Filtration Rate 93 BUN/Creatinine Ratio 12 Glucose Level 106 H 70-105 MG/DL Calcium Level 9.5 8.5-10.1 MG/DL Corrected Calcium 9.2 8.5-10.1 MG/DL Total Bilirubin 0.5 0.1-1.0 MG/DL Aspartate Amino Transf (AST/SGOT) 19 5-34 U/L Alanine Aminotransferase (ALT/SGPT) 18 0-55 U/L Alkaline Phosphatase 61 40-136 U/L Total Protein 7.3 6.4-8.2 GM/DL Albumin 4.4 3.2-4.5 GM/DL My Orders Orders - KARL HATFIELD SUPPLIER QUALITY MANAGER Cbc With Automated Diff (03/31/22 11:09) Comprehensive Metabolic Panel (03/31/22 11:09) Ua Culture If Indicated (03/31/22 11:09) Iv/Invasive Line Insertion .IV INSERT (03/31/22 11:09) Ct Abdomen/Pelvis W (03/31/22 11:09) Hcg,Qualitative Urine (03/31/22 11:29) Iohexol Injection (Omnipaque 350 Mg/Ml 1 (03/31/22 11:45) Received Contrast (Hold Metformin- Contr (03/31/22 11:45) Ns (Ivpb) (Sodium Chloride 0.9% Ivpb Bag (03/31/22 11:45) Ketorolac Injection (Toradol Injection) (03/31/22 12:15) Medications Given in ED Current Medications Medications Dose Ordered Sig/Joel Route Start Time Stop Time Status Last Admin Dose Admin Iohexol 100 ml ONCE ONCE IV 03/31/22 11:45 03/31/22 11:46 DC 03/31/22 11:53 80 ML Ketorolac Tromethamine 15 mg ONCE ONCE IVP 03/31/22 12:15 03/31/22 12:16 DC 03/31/22 12:06 15 MG Sodium Chloride 100 ml ONCE ONCE IV 03/31/22 11:45 03/31/22 11:46 DC 03/31/22 11:53 80 ML Vital Signs/I&O 03/31/22 11:03 Temp 36.3 Pulse 100 Resp 20 B/P (MAP) 135/96 (109) Pulse Ox 100 Blood Pressure Mean: 109 Progress Progress Note : Progress Note Patient is nontoxic and well-hydrated on exam. Vital signs are reassuring. Abdominal exam is notable for some mild right upper quadrant tenderness without guarding. No abdominal tension/rigidity noted. No right flank tenderness to palpation. Laboratory evaluation is unremarkable and reassuring. Urinalysis notable for hematuria but is otherwise unremarkable. CT of the abdomen pelvis with contrast reveals bilateral nephrolithiasis without ureterolithiasis. There are some findings suggestive of possible pelvic vessel congestion that is likely an incidental finding as patient has no lower abdominal pain. No findings that explain patient's pain at this time. However there appear to be no processes requiring acute surgical intervention or hospital admission at this time. Will discharge home with recommendations for supportive care and follow-up with PCP. Return precautions for urgent symptomology discussed. Patient verbalized understanding. Departure Impression Primary Impression: Right upper quadrant abdominal pain Additional Impression: Hematuria Qualified Codes: R31.9 - Hematuria, unspecified Disposition: HOME, SELF-CARE Condition: Stable Departure-Patient Inst. Decision time for Depature: 12:40 Referrals: ANALIA XAVIER DO (PCP/Family) Primary Care Physician Patient Instructions: Abdominal Pain, Adult ED Scripts Ketorolac Tromethamine (Ketorolac Tromethamine) 10 Mg Tablet 10 MG PO Q6H PRN for PAIN-SEE DOSE INSTRUCTIONS for 5 Days, #20 TAB 0 Refills Prov: KARL HATFIELD APRN 03/31/22 KARL HATFIELD APRN Mar 31, 2022 11:30
[2022-03-31 11:37] LABS: BACTERIA,URINE MODERATE /HPF; RBC,URINE 25-50 /HPF; SQUAMOUS EPITHELIAL CELL,UR 25-50 /HPF; WBC,URINE 0-2 /HPF
[2022-03-31] MEDS ORDERED: IOHEXOL 350 MG/ML 100 ML (OMNIPAQUE 350) VIAL IV ONE (11:45)
[2022-03-31] MEDS ORDERED: NS 100 ML (IVPB) BAG IV ONE (11:45)
[2022-03-31] MEDS ORDERED: HOLD METFORMIN - RECEIVED CONTRAST 20 ML VIAL IV SCH (11:45)
--- NOTE | 2022-03-31 12:10 | Diagnostic Imaging Report ---
PROCEDURE: CT abdomen and pelvis with contrast. TECHNIQUE: Multiple contiguous axial images were obtained through the abdomen and pelvis after administration of intravenous contrast. Auto Exposure Controls were utilized during the CT exam to meet ALARA standards for radiation dose reduction. All CT scans use one or more of the following dose optimizing techniques: automated exposure control, MA and/or KvP adjustment based on patient size and exam type or iterative reconstruction. INDICATION: Right-sided abdominal pain. Patient does have a history of kidney stones. Comparison is made with prior CT from 05/08/2016. Lung bases are clear. Liver is unremarkable. Gallbladder is surgically absent. No biliary ductal dilatation is seen. Pancreas and spleen are unremarkable. No adrenal mass is identified. There appear to be nonobstructing calculi both kidneys, largest in the lower pole of the right kidney measuring 8 mm. No definite ureteral calculi or evidence of hydronephrosis is identified. Bowel loops are normal caliber. There is no obstruction. No free fluid is detected. Bladder and uterus are unremarkable. There are prominent vessels in the left adnexa, which may be owing to pelvic congestion. No inflammatory changes are identified. Appendix is unremarkable. IMPRESSION: 1. Bilateral nonobstructing nephrolithiasis. No definite ureteral calculi or hydronephrosis is identified. 2. No acute feature detected. 3. Prominent left pelvic vessels, raising question of the pelvic congestion. Dictated by: Dictated on workstation # [id number]
[2022-03-31] MEDS ORDERED: KETOROLAC 30 MG/ML VIAL IVP ONE (12:15)
[2022-03-31] MEDS ORDERED: KETO10TA PO ×2 (12:44→12:52)
[2022-03-31 12:51] VITALS: BP 119/80
== END 2022-03-31 12:51 | disposition home or self-care (01) ==
LOC: EDUNIT# 10:42 → ER 10:46
DX: R10.11 Right upper quadrant pain (principal); R31.9 Hematuria, unspecified; Z32.02 Encounter for pregnancy test, result negative
CPT/HCPCS: 36415; 74177; 80053; 81000; 84703; 85025

== ENCOUNTER → 2022-09-14 | Outpatient (CLI) | payer MEDICAID ==
[~2022-09-14] MED LIST changes: +KETO10TA PO
--- NOTE | 2022-09-14 13:19 | Diagnostic Imaging Report ---
PROCEDURE: US Thyroid. TECHNIQUE: Multiple real-time grayscale images were obtained of the thyroid in various projections. INDICATION: Thyroid nodule follow-up. COMPARISON: 03/06/2018. FINDINGS: Right thyroid lobe: The right thyroid lobe measures 5.4 x 1.4 x 1.5 cm. There is a solid hypoechoic nodule with circumscribed margins and no echogenic foci located in the lower pole of the right thyroid now measuring 0.7 x 0.5 x 0.5 cm (previously 0.4 x 0.4 x 0.3 cm), TI-RADS 4. An additional 0.7 cm hypoechoic solid nodule is stable since prior exam, TI-RADS 4. Isthmus: The thyroid isthmus measures 0.3 cm. Left thyroid lobe: The left thyroid lobe measures 5.4 x 1.0 x 1.4 cm. No nodules on the left side. IMPRESSION: Moderately suspicious right thyroid nodule remains subcentimeter in size and has slightly increased in size since prior examination. Follow-up thyroid ultrasound in 12 months is recommended given the potential change in size. ACR TI-RADS: TR4 . TI-RADS Recommendations:TR4 - Moderately Suspicious:FNA if >1.5 cm; Follow if > 1.0 cm at 1, 2, 3 and 5 years. Dictated by: Dictated on workstation # [id number]
== END ==
LOC: RAD 07:40
PROVIDERS: ATTEND Nurse Practitioner Family
DX: E04.2 Nontoxic multinodular goiter (principal)
CPT/HCPCS: 76536